=== PATIENT | male | born 1945 | race Hispanic/Latino ===

== ENCOUNTER 2017-02-22 20:21 | Inpatient (IN) | payer BC, MEDICARE ==
--- NOTE | 2017-02-22 20:41 | ED PDOC ---
Arrival/HPI - General Chief Complaint: Weakness/Neurological Deficit Time Seen by Provider: 02/22/17 20:23 - Critical Care Critical Care Minutes: 45 minutes - History of Present Illness Narrative History of Present Illness (Text): 71M hx of CHF and COPD c/o generalized weakness and sob since yesterday. also reports productive cough no fever. he lives at home w family and normally can walk but today he is too weak. 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 Thickened, whitish-yellowish skin patch) Hx Psoriasis: Yes Other/Comment: Generalized body surface area, including extremities and torso with reddened, flushed skin with dry, whitish-yellow, thick, scaly, flaky patches. - Musculoskeletal/Rheumatological Hx Falls: Yes (past) - Gastrointestinal Hx Gastrointestinal Disorders: Yes (reflux) - Genitourinary/Gynecological Hx Reproductive Disorders: No - Psychiatric Hx Psychophysiologic Disorder: Yes Hx Anxiety: Yes Hx Depression: Yes Hx Substance Use: No - Surgical History Hx Appendectomy: Yes Hx Cardiac Catheterization: Yes Hx Coronary Stent: Yes - Anesthesia Hx Anesthesia Reactions: No Hx Malignant Hyperthermia: No - Suicidal Assessment Feels Threatened In Home Enviroment: No Family/Social History Family/Social History: Other (nc) Smoking Status: Former Smoker Hx Alcohol Use: No Hx Substance Use: No Hx Substance Use Treatment: No Allergies/Home Meds Allergies/Adverse Reactions: Allergies No Known Allergies Allergy (Verified 02/22/17 20:33) Home Medications: Home Meds Medication Instructions Recorded Confirmed Furosemide [Lasix] 40 mg PO BID 07/14/15 02/22/17 Esomeprazole Magnesium [Nexium 40 mg PO DAILY 07/28/15 02/22/17 24Hr] Sitagliptin Phos/Metformin HCl 1 each PO BID 03/31/16 02/22/17 [Janumet 50-500 mg Tablet] Bosentan [Tracleer] 125 mg PO BID 09/26/16 02/22/17 Prednisone [Deltasone] 10 mg PO DAILY 09/26/16 02/22/17 Review of Systems - Physician Review All systems were reviewed & negative as marked: Yes - Review of Systems Eyes: Other (chronic blindess) Respiratory: SOB, Cough Cardiovascular: absent: Chest Pain Gastrointestinal: absent: Abdominal Pain, Vomiting Genitourinary Male: absent: Dysuria Skin: Rash (chronic) Physical Exam Vital Signs Temp Pulse Resp BP Pulse Ox 02/22/17 23:06 106 H 17 117/81 90 L 02/22/17 22:36 100 H 18 97/77 L 90 L 02/22/17 20:43 99.9 F H 110 H 28 H 137/78 95 Appearance: Positive for: Non-Toxic, Comfortable Pain Distress: None Mental Status: Positive for: Alert and Oriented X 3 - Systems Exam Head: Present: Atraumatic Conjunctiva: Present: Injected Mouth: Present: Moist Mucous Membranes Neck: Present: Normal Range of Motion Respiratory/Chest: Present: Rales (bibasilar). No: Respiratory Distress Cardiovascular: Present: Regular Rate and Rhythm Abdomen: No: Tenderness Genitourinary Male: No: Penile Swelling Upper Extremity: Present: NORMAL PULSES Lower Extremity: Present: Edema (trace), NORMAL PULSES Neurological: Present: GCS=15, Motor Func Grossly Intact, Normal Sensory Function Skin: Present: Warm, Dry, Rashes (chronic appearing diffuse) Psychiatric: Present: Alert, Oriented x 3 Medical Decision Making ED Course and Treatment: 02/22/17 21:26 Chest X-ray interpreted by me: Diffuse bilateral opacities. Right sided pleural effusion. 02/22/17 22:08 Case discussed with at emergency department who accepts patient to ICU for worsening COPD and CHF under hospitalist service. 02/22/17 22:55 EKG interpreted by me: Sinus Tachy @ 107 bpm. Non-specific ST/T wave abnormality. No STEMI. - Lab Interpretations Microbiology Results: Microbiology Results 02/22/17 21:50 Blood-Venous Blood Culture - Preliminary NO GROWTH AFTER 48 HOURS 02/22/17 20:50 Blood-Venous Blood Culture - Preliminary NO GROWTH AFTER 48 HOURS Lab Results: 02/22/17 20:45 02/22/17 20:45 Lab Results 02/22/17 21:00: pO2 196 H, VBG pH 7.52 H, VBG pCO2 59.0, VBG HCO3 48.2 H, VBG Total CO2 50.0 H, VBG O2 Sat (Calc) 99.6 H, VBG Base Excess 21.6 H, VBG Potassium 4.6, Sodium 139.0, Chloride 101.0, Glucose 127 H, Lactate 0.7, FiO2 21.0, Venous Blood Potassium 4.6 02/22/17 20:45: WBC 5.7 D, RBC 4.73, Hgb 11.5 L, Hct 42.5, MCV 89.9, MCH 24.3 L , MCHC 27.1 L, RDW 16.2 H, Plt Count 138, MPV 10.6, Gran % 73.1 H, Lymph % (Auto ) 11.0 L, [place] % (Auto) 10.3 H, Eos % (Auto) 5.4 H, Baso % (Auto) 0.2, Gran # 4.18, Lymph # 0.6 L, [place] # 0.6, Eos # 0.3, Baso # 0.01, Sodium 144, Chloride 90 L, Potassium 4.5, Carbon Dioxide 50 H, Anion Gap 9 L, BUN 15, Creatinine 0.9 , Est GFR ( Amer) > 60, Est GFR (Non-Af Amer) > 60, Random Glucose 127 H , Calcium 9.1, Total Bilirubin 0.6, AST 18, ALT 29, Alkaline Phosphatase 85, Troponin I < 0.01, NT-Pro-B Natriuret Pep 252, Total Protein 8.1, Albumin 3.9, Globulin 4.2, Albumin/Globulin Ratio 0.9 L, Procalcitonin < 0.05 L I have reviewed the lab results: Yes Interpretation: All labs normal - RAD Interpretation Radiology Orders: 02/22/17 20:34 CHEST PORTABLE [RAD] Stat Nurse Sane: ED Physician - EKG Interpretation Interpreted by ED Physician: Yes Type: 12 lead EKG - Medication Orders Current Medication Orders: Albuterol/Ipratropium (Duoneb 3 Mg/0.5 Mg (3 Ml) Ud) 3 ml IH Q2H PRN PRN Reason: Shortness of Breath Last Admin: 02/25/17 19:31 Dose: 3 ML Alprazolam (Xanax) 0.25 mg PO BID PRN; Protocol PRN Reason: Anxiety Stop: 03/02/17 18:01 Last Admin: 02/25/17 10:40 Dose: 0.25 MG Behavioural Document 02/25/17 10:40 FABIOLA (Rec: 02/25/17 10:41 FABIOLA [id number]) Maintenance Maintenance Dose No Nonmedicinal Nonmedicinal Interventions Redirect Behavior Behavior for Medication: Anxiety Re-Assess: Reassess Psych Meds Document 02/25/17 11:40 FABIOLA (Rec: 02/25/17 12:41 FABIOLA [id number]) Reassess Psych Med Effective Aspirin (Aspirin Chewable) 81 mg PO DAILY [facility] Last Admin: 02/25/17 10:40 Dose: 81 MG Benzonatate (Tessalon Perles) 100 mg PO TID PRN PRN Reason: Cough Last Admin: 02/25/17 17:09 Dose: 100 MG Budesonide (Pulmicort Respules) 0.5 mg IH [id number] [facility] Last Admin: 02/25/17 19:30 Dose: 0.5 MG Diltiazem HCl (Cardizem Cd) 300 mg PO DAILY [facility] Last Admin: 02/25/17 10:42 Dose: 300 MG MAR Pulse and Blood Pressure Document 02/25/17 10:42 FABIOLA (Rec: 02/25/17 10:43 FABIOLA [id number]) Pulse Pulse Rate (60-90) 55 Blood Pressure Blood Pressure (100/60-150/90) 145/67 Docusate Sodium (Colace) 100 mg PO DAILY [facility] Last Admin: 02/25/17 10:41 Dose: 100 MG Stool Assessment Document 02/25/17 10:41 FABIOLA (Rec: 02/25/17 10:41 FABIOLA [id number]) Pattern Bowel Pattern No Bowel Movement Fecal Management System Bowel Movement Frequency Daily Furosemide (Lasix) 40 mg IVP DAILY [facility] Heparin Sodium (Porcine) (Heparin) 5,000 units SC Q12 [place] PRN Reason: Protocol Last Admin: 02/25/17 10:44 Dose: 5,000 UNITS Subcutaneous Administrations Document 02/25/17 10:44 FABIOLA (Rec: 02/25/17 10:44 FABIOLA [id number]) Injection Site MAR Injection Site Left Deltoid Charges for Administration # of Subcutaneous Administrations 1 Azithromycin (Zithromax 500mg In Ns) 250 mls @ 167 mls/hr IVPB DAILY YSDNEY PRN Reason: Protocol Last Admin: 02/25/17 10:45 Dose: 167 MLS/HR eMAR Start Stop Document 02/25/17 10:45 FABIOLA (Rec: 02/25/17 10:46 FABIOLA [id number]) Intravenous Solution Start Date 02/25/17 Start Time 10:45 End Date 02/25/17 End time 12:15 Total Infusion Time 90 Insulin Human Lispro (Humalog Low) 0 units SC ACHS [facility] PRN Reason: Protocol Last Admin: 02/25/17 16:30 Dose: Not Given Non-Admin Reason: Blood Sugar Parameter MAR Blood Glucose Document 02/25/17 16:30 FABIOLA (Rec: 02/25/17 17:06 FABIOLA [id number]) Blood Glucose Finger Stick Blood Glucose (70-120) 118 Subcutaneous Administrations Document 02/25/17 16:30 FABIOLA (Rec: 02/25/17 17:06 FABIOLA [id number]) Charges for Administration # of Subcutaneous Administrations 0 Methylprednisolone (Solu-Medrol) 40 mg IVP BID [facility] Last Admin: 02/25/17 17:09 Dose: 40 MG IVP Administration Document 02/25/17 17:09 FABIOLA (Rec: 02/25/17 17:09 FABIOLA [id number]) Charges for Administration # of IVP Administrations 1 Non-Formulary Medication (Bosentan [Tracleer]) 125 mg PO BID [facility] Last Admin: 02/25/17 17:09 Dose: 125 MG Ondansetron HCl (Zofran Inj) 4 mg IVP Q6H PRN PRN Reason: Nausea/Vomiting Pantoprazole Sodium (Protonix Inj) 40 mg IVP DAILY [facility] Last Admin: 02/25/17 10:43 Dose: 40 MG IVP Administration Document 02/25/17 10:43 FABIOLA (Rec: 02/25/17 10:43 FABIOLA [id number]) Charges for Administration # of IVP Administrations 1 Polyethylene Glycol (Miralax) 17 gm PO BID PRN PRN Reason: Constipation Last Admin: 02/25/17 10:44 Dose: 17 GM Discontinued Medications Acetazolamide (Diamox 500 Mg Inj) 500 mg IV ONCE ONE Stop: 02/23/17 10:41 Last Admin: 02/23/17 11:41 Dose: 500 MG eMAR Start Stop Document 02/23/17 11:41 RITIKA (Rec: 02/23/17 11:[address]) Intravenous Solution Start Date 02/23/17 Start Time 11:41 End Date 02/23/17 End time 11:41 Total Infusion Time 0 Albuterol/Ipratropium (Duoneb 3 Mg/0.5 Mg (3 Ml) Ud) 3 ml IH ONCE STA Stop: 02/22/17 20:55 Last Admin: 02/22/17 21:18 Dose: 3 ML Albuterol/Ipratropium (Duoneb 3 Mg/0.5 Mg (3 Ml) Ud) 3 ml IH Q4H [place] Stop: 02/23/17 07:01 Last Admin: 02/23/17 08:08 Dose: 3 ML Furosemide (Lasix) 40 mg IVP Q12H [place] Furosemide (Lasix) 40 mg IVP DAILY [place] Last Admin: 02/23/17 09:11 Dose: 40 MG MAR Blood Pressure Document 02/23/17 09:11 RITIKA (Rec: 02/23/17 09:[address]) Blood Pressure Blood Pressure (100/60-150/90) 160/77 IVP Administration Document 02/23/17 09:11 RITIKA (Rec: 02/23/17 09:[address]) Charges for Administration # of IVP Administrations 1 Guaifenesin (Robitussin) 200 mg PO Q4H PRN PRN Reason: Cough and congestion Last Admin: 02/25/17 10:41 Dose: 200 MG Azithromycin (Zithromax 500mg In Ns) 250 mls @ 167 mls/hr IVPB STAT STA PRN Reason: Protocol Stop: 02/22/17 22:22 Last Admin: 02/22/17 22:26 Dose: 167 MLS/HR eMAR Start Stop Document 02/22/17 22:26 [email or web address] (Rec: 02/22/17 22:26 [id number] Intravenous Solution Start Date 02/22/17 Start Time 22:26 End Date 02/22/17 Piperacillin Sod/Tazobactam Sod (Zosyn 4.5 Gm In Ns 100ml) 100 mls @ 200 mls/ hr IVPB STAT STA PRN Reason: Protocol Stop: 02/22/17 21:22 Last Admin: 02/22/17 21:17 Dose: 200 MLS/HR eMAR Start Stop Document 02/22/17 21:17 [email or web address] (Rec: 02/22/17 21:[address]) Intravenous Solution Start Date 02/22/17 Start Time 21:17 End Date 02/22/17 Vancomycin HCl 1.2 gm/ Sodium (Chloride) 250 mls @ 167 mls/hr IVPB STAT STA Stop: 02/22/17 22:27 Last Admin: 02/22/17 23:30 Dose: 167 MLS/HR eMAR Start Stop Document 02/22/17 23:30 MPD (Rec: 02/23/17 00:52 MPD [facility] [place]14ICUP) Intravenous Solution Start Date 02/22/17 Start Time 23:30 End Date 02/23/17 End time 01:00 Total Infusion Time 90 Sodium Chloride (Sodium Chloride 0.9%) 500 mls @ 999 mls/hr IV .Q31M STA Stop: 02/22/17 22:28 Last Admin: 02/22/17 23:11 Dose: 999 MLS/HR eMAR Start Stop Document 02/22/17 23:11 [email or web address] (Rec: 02/22/17 23:12 [address] [facility] Intravenous Solution Start Date 02/22/17 Start Time 23:11 End Date 02/22/17 Sodium Chloride (Sodium Chloride 0.9%) 500 mls @ 999 mls/hr IV .Q31M STA Stop: 02/22/17 23:30 Last Admin: 02/23/17 00:56 Dose: Ceftriaxone Sodium (Rocephin 1 Gram Ivpb) 100 mls @ 100 mls/hr IVPB DAILY [place] PRN Reason: Protocol Cefepime HCl (Maxipime 1gm) 100 mls @ 100 mls/hr IVPB Q8 [place] PRN Reason: Protocol Last Admin: 02/24/17 06:00 Dose: 100 MLS/HR eMAR Start Stop Document 02/24/17 06:00 MPD (Rec: 02/24/17 06:17 MPD [id number]) Intravenous Solution Start Date 02/24/17 Start Time 06:00 End Date 02/24/17 End time 07:00 Total Infusion Time 60 Methylprednisolone (Solu-Medrol) 80 mg IVP STAT STA Stop: 02/22/17 20:55 Last Admin: 02/22/17 21:18 Dose: 80 MG IVP Administration Document 02/22/17 21:18 [email or web address] (Rec: 02/22/17 21:18 [email or web address] [id number]) Charges for Administration # of IVP Administrations 1 Methylprednisolone (Solu-Medrol) 40 mg IVP Q8H [facility] Last Admin: 02/24/17 16:06 Dose: 40 MG IVP Administration Document 02/24/17 16:06 RITIKA (Rec: 02/24/17 16:06 RITIKA [id number]) Charges for Administration # of IVP Administrations 1 Methylprednisolone (Solu-Medrol) 40 mg IVP 2200,0600,1400 [facility] Last Admin: 02/25/17 05:12 Dose: 40 MG IVP Administration Document 02/25/17 05:12 FDE (Rec: 02/25/17 05:12 FDE [id number]) Charges for Administration # of IVP Administrations 1 Non-Formulary Medication (Bosentan [Tracleer]) 125 mg PO BID [facility] Non-Formulary Medication (Bosentan [Tracleer]) 125 mg PO BID [facility] Disposition/Present on Arrival - Present on Arrival Any Indicators Present on Arrival: Yes History of DVT/PE: No History of Uncontrolled Diabetes: Yes Urinary Catheter: No History of Decub. Ulcer: No History Surgical Site Infection Following: None - Disposition Have Diagnosis and Disposition been Completed?: Yes Diagnosis: CHF (congestive heart failure), COPD (chronic obstructive pulmonary disease), Respiratory failure with hypercapnia, Pneumonia Disposition: HOSPITALIZED Disposition Time: 22:10 Condition: GUARDED
[2017-02-22 20:52] LABS: ADD MANUAL DIFF? NO
[2017-02-22] MEDS ORDERED: Azithromycin 500MG/NS 250ml 250 ML IVPB STA (20:53)
[2017-02-22] MEDS ORDERED: Piperacill/Tazo 4.5gm in NS 100 ML IVPB STA (20:53)
[2017-02-22] MEDS ORDERED: Vancomycin 500 mg Inj IVPB STA (20:53)
[2017-02-22] MEDS ORDERED: Albuterol-Ipratrop 3 mg / 0.5 (3 ml) UD IH STA (20:54)
[2017-02-22 20:55] LABS: BASO # 0.01 K/mm3 (0.0-2.0); BASO % 0.2 % (0.0-3.0); EOS # 0.3 (0.0-0.7); EOS % 5.4 % (1.5-5.0); GRAN # 4.18 (1.4-6.5); GRAN % 73.1 % (50.0-68.0); HEMATOCRIT 42.5 % (42.0-52.0); LYMPH # 0.6 (1.2-3.4); MEAN CELL VOLUME 89.9 fL (80.0-105.0); MEAN CORPUSCULAR HEMOGLOBIN 24.3 pg (25.0-35.0); MEAN CORPUSCULAR HGB CONC 27.1 g/dl (31.0-37.0); MEAN PLATELET VOLUME 10.6 fl (7.0-11.0); MONO # 0.6 (0.1-0.6); MONO % 10.3 % (1.0-6.0); PLATELET COUNT 138 10^3/uL (120.0-450.0); RED CELL DISTRIBUTION WIDTH 16.2 % (11.5-14.5); WHITE BLOOD COUNT 5.7 10^3/ul (4.5-11.0)
[2017-02-22] MEDS ORDERED: Vancomycin 1.2 GM in Sodium Chloride 0.9% 250 ML IVPB STA (20:58)
[2017-02-22 21:04] LABS: ALB/GLOB RATIO 0.9 (1.1-1.8); ALKALINE PHOSPHATASE 85 U/L (38-133); ALT/SGPT 29 U/L (7-56); AST/SGOT 18 U/L (15-59); BILIRUBIN,TOTAL 0.6 mg/dL (0.2-1.3); BLOOD UREA NITROGEN 15 mg/dL (7-21); CALCIUM 9.1 mg/dL (8.4-10.5); CHLORIDE 90 mmol/L (98-107); GFR AFRICAN-AMERICAN > 60; GLUCOSE,RANDOM 127 mg/dL (70-110); POTASSIUM 4.5 mmol/L (3.6-5.0); SODIUM 144 mmol/L (132-148); TOTAL PROTEIN 8.1 g/dL (5.8-8.3)
[2017-02-22 21:11] LABS: VENOUS BLOOD GAS BASE EXCESS 21.6 mmol/L (0.0-2.0); VENOUS BLOOD PH 7.52 (7.32-7.43)
[2017-02-22 21:12] LABS: CARBON DIOXIDE 50 mmol/L (21-33)
[2017-02-22 21:16] LABS: TROPONIN I < 0.01 ng/mL
[2017-02-22] MEDS ORDERED: Sodium Chloride 0.9% 500 ML IV STA ×2 (21:58→23:00)
[2017-02-22 22:49] LABS: ARTERIAL BLOOD GAS O2 CAPACITY 13.6 mL/dl (16-24); ARTERIAL BLOOD GAS O2 CONTENT 12.2 ML/dl (15-23); ARTERIAL BLOOD GAS PH 7.29 (7.35-7.45); CARBOXYHEMOGLOBIN 3.2 % (0.5-1.5); HHB 9.7 % (0-5); METHEMOGLOBIN 1.2 % (0.0-3.0)
[2017-02-22 22:52] LABS: ARTERIAL BLOOD GAS HCO3 48.6 mmol/L (21-28)
[2017-02-22 22:57] LABS: URINE BILIRUBIN NEGATIVE (NEGATIVE); URINE BLOOD SMALL (NEGATIVE); URINE GLUCOSE (UA) NEGATIVE (NEGATIVE); URINE KETONE NEGATIVE (NEGATIVE); URINE LEUKOCYTE ESTERASE NEGATIVE Leu/uL (NEGATIVE); URINE PROTEIN NEGATIVE mg/dL (<30 mg/dL); URINE UROBILINOGEN 0.2 E.U./dL (<1 E.U./dL)
[2017-02-22 22:58] LABS: URINE APPEARANCE CLEAR (CLEAR); URINE COLOR STRAW (YELLOW)
[2017-02-22 23:04] LABS: URINE BACTERIA TRACE (NEG); URINE EPITHELIAL CELLS 0 - 2 /hpf (0-5); URINE RBC 0 - 2 /hpf (0-2); URINE WBC 0 - 2 /hpf (0-6)
--- NOTE | 2017-02-22 23:08 | CP.PCM.HP ---
History of Present Illness - History of Present Illness History of Present Illness: The patient is a 71 year old, legally blind, man with a history of severe COPD ( on 4L of O2 at home), pulmonary hypertension, obstructive sleep apnea, psoriasis , HTN, NDDM and CAD (s/p stents), who presents with 2 days of worsening SOB, NIETO , wheezing and generalized malaise. He also reports a productive cough during this time period. He denies orthopnea, PND, F/C, hemoptysis, or N/V. Of note, the history was limited because the patient was in respiratory distress, on Bipap, during the interview. He reports compliance with all home medications ( including Lasix). In the ED, he was having acute hypercapeic respiratory distress (MWN9=858 and pH=7.29) and therefore, was started on Bipap therapy. His CXR is concerning for bilateral opacities and a possible right-sided pleural effusion. Also in the ED, his initial SBP's were in the low-normal range (90-105). As a result, he will be admitted to the ICU overnight for close monitoring and management of his acute symptoms. Present on Admission - Present on Admission Any Indicators Present on Admission: No History of DVT/PE: No History of Uncontrolled Diabetes: No Urinary Catheter: No Decubitus Ulcer Present: No Review of Systems - Review of Systems All systems: reviewed and no additional remarkable complaints except - Constitutional Constitutional: As Per HPI - EENT Eyes: As Per HPI Nose/Mouth/Throat: As Per HPI - Cardiovascular Cardiovascular: As Per HPI - Respiratory Respiratory: As Per HPI - Gastrointestinal Gastrointestinal: As Per HPI - Musculoskeletal Musculoskeletal: As Per HPI - Neurological Neurological: As Per HPI Past Patient History - Infectious Disease Hx of Infectious Diseases: None - Tetanus Immunizations Tetanus Immunization: Up to Date - Past Social History Smoking Status: Former Smoker - CARDIAC Hx Cardiac Disorders: Yes Hx Congestive Heart Failure: Yes Hx Hypertension: Yes - PULMONARY Hx Chronic Obstructive Pulmonary Disease (COPD): Yes (end stage) - NEUROLOGICAL Hx Neurological Disorder: Yes (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 Thickened, whitish-yellowish skin patch) Hx Psoriasis: Yes Other/Comment: Generalized body surface area, including extremities and torso with reddened, flushed skin with dry, whitish-yellow, thick, scaly, flaky patches. - MUSCULOSKELETAL/RHEUMATOLOGICAL Hx Falls: Yes (past) - GASTROINTESTINAL Hx Gastrointestinal Disorders: Yes (reflux) - GENITOURINARY/GYNECOLOGICAL Hx Reproductive Disorders: No - PSYCHIATRIC Hx Psychophysiologic Disorder: Yes Hx Anxiety: Yes Hx Depression: Yes Hx Substance Use: No - SURGICAL HISTORY Hx Appendectomy: Yes Hx Cardiac Catheterization: Yes Hx Coronary Stent: Yes - ANESTHESIA Hx Anesthesia Reactions: No Hx Malignant Hyperthermia: No Meds Allergies/Adverse Reactions: Allergies Allergy/AdvReac Type Severity Reaction Status Date / Time No Known Allergies Allergy Verified 02/22/17 20:33 Physical Exam - Constitutional Additional comments: In obvious discomfort due to respiratory distress - Head Exam Head Exam: ATRAUMATIC, NORMAL INSPECTION, NORMOCEPHALIC - Eye Exam Eye Exam: EOMI, Normal appearance, PERRL - ENT Exam ENT Exam: Mucous Membranes Moist, Normal Exam - Neck Exam Neck exam: Positive for: Normal Inspection - Respiratory Exam Additional comments: Diffuse expiratory wheezing in both upper lung soto; Decreased bibasilar breath sounds (R>L). No accessory muscle use. - Cardiovascular Exam Cardiovascular Exam: Tachycardia, REGULAR RHYTHM, RRR - GI/Abdominal Exam GI & Abdominal Exam: Normal Bowel Sounds, Soft. absent: Tenderness - Rectal Exam Rectal Exam: Deferred - Extremities Exam Additional comments: trace to 1+ bilateral lower extremities pitting edema; Scattered chronic psoriatic skin lesions on both legs - Neurological Exam Additional comments: Grossly normal neuro exam - Skin Additional comments: Scattered chronic psoriatic skin lesions over entire body (especially on legs) Results - Vital Signs Recent Vital Signs: Last Vital Signs Temp 99.9 F H 02/22/17 20:43 Pulse 100 H 02/22/17 22:36 Resp 18 02/22/17 22:36 BP 97/77 L 02/22/17 22:36 Pulse Ox 90 L 02/22/17 22:36 - Labs Result Diagrams: 02/22/17 20:45 02/22/17 20:45 Labs: Laboratory Results - last 24 hr 02/22/17 22:40 pCO2 101 H* pO2 51.0 L HCO3 48.6 H* ABG pH 7.29 L ABG Total CO2 51.7 H ABG O2 Saturation 89.9 L ABG O2 Content 12.2 L ABG Base Excess 18.3 H ABG Hemoglobin 10.1 L ABG Carboxyhemoglobin 3.2 H POC ABG HHb (Measured) 9.7 H ABG Methemoglobin 1.2 ABG O2 Capacity 13.6 L Hgb O2 Saturation 86.0 L FiO2 40.0 Urine Color Straw Urine Appearance Clear Urine pH 7.0 Ur Specific [place] 1.015 Urine Protein Negative Urine Glucose (UA) Negative Urine Ketones Negative Urine Blood Small H Urine Nitrate Negative Urine Bilirubin Negative Urine Urobilinogen 0.2 Ur Leukocyte Esterase Negative - Imaging and Cardiology Chest x-ray Status: Image reviewed by me Assessment & Plan - Assessment and Plan (Free Text) Plan: A/P: The patient is a 71 year old, legally blind, man with a history of severe COPD (on 4L of O2 at home), pulmonary HTN, SARBJIT, psoriasis, HTN, NDDM and CAD (s/ p stents), who is being admitted to the ICU for acute hypercapneic respiratory distress due to acute COPD exacerbation and bilateral PNA. 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 Pulmonary: -acute on chronic hypercapneic respiratory acidoses due to acute on chronic COPD and bilateral PNA (+/- right-sided pleural effusion) -Duo-nebs Q4hrs ATC and Q2hrs PRN -Bipap to help blow off excess CO2 -monitor serial ABG's -IV Solumedrol 40mg Q8hrs -pulmonary consult placed -empiric IV Cefepime and Azithromycin for b/l lung opacities -f/u blood and urine cultures -PRN Robitussan -continue home med of Bosentan 125mg po BID for pulmonary HTN Cardiac: -history of CAD (with PCI's) and HTN -BNP is normal with clinical evidence of mild fluid overload -will start IV Lasix 40mg daily -monitor strict I/O's and daily weights and keep HOB>30 degrees -ASA 81mg po daily -continue home medication of Diltiazem 300mg po daily for HTN -heart healthy diet Infectious Disease: -empiric IV Cefepime and Azithromycin for new bilateral pneumonia -check lactic acid and procalitonin level -normal white count with low-grade fevers (Tmax:99.9) Endocrine: -history of NDDM -hold all home oral hypoglycemic meds -low-dose Humalog Insulin sliding scale with Accu-checks AC&HS -consistent carbohydrate diet Skin: -chronic psoriatic lesions over extremities noted DVT PPx: SQ Herparin and SCD's GI PPx: IV Protonix
[2017-02-23] MEDS: MethylPREDNISolone 40 mg Vial IVP SCH ×4 (00:49→22:54)
[2017-02-23] MEDS: Albuterol-Ipratrop 3 mg / 0.5 (3 ml) UD IH SCH ×3 (00:50→08:08)
[2017-02-23 02:34] VITALS: BMI 196.4
[2017-02-23 05:32] LABS: ADD MANUAL DIFF? NO
[2017-02-23 05:37] LABS: BASO # 0.01 K/mm3 (0.0-2.0); BASO % 0.2 % (0.0-3.0); EOS % 0.2 % (1.5-5.0); GRAN # 4.13 (1.4-6.5); GRAN % 87.3 % (50.0-68.0); HEMATOCRIT 37.5 % (42.0-52.0); LYMPH # 0.4 (1.2-3.4); LYMPH % 7.6 % (22.0-35.0); MEAN CORPUSCULAR HEMOGLOBIN 24.2 pg (25.0-35.0); MEAN CORPUSCULAR HGB CONC 27.5 g/dl (31.0-37.0); MEAN PLATELET VOLUME 10.1 fl (7.0-11.0); MONO # 0.2 (0.1-0.6); MONO % 4.7 % (1.0-6.0); PLATELET COUNT 128 10^3/uL (120.0-450.0); RED CELL DISTRIBUTION WIDTH 16.3 % (11.5-14.5); WHITE BLOOD COUNT 4.7 10^3/ul (4.5-11.0)
[2017-02-23 05:49] LABS: ALB/GLOB RATIO 0.9 (1.1-1.8); ALKALINE PHOSPHATASE 70 U/L (38-133); ALT/SGPT 31 U/L (7-56); AST/SGOT 14 U/L (15-59); BILIRUBIN,TOTAL 0.4 mg/dL (0.2-1.3); BLOOD UREA NITROGEN 16 mg/dL (7-21); CALCIUM 8.3 mg/dL (8.4-10.5); CHLORIDE 94 mmol/L (98-107); GFR AFRICAN-AMERICAN > 60; GLUCOSE,RANDOM 144 mg/dL (70-110); PHOSPHOROUS 3.3 mg/dL (2.5-4.5); POTASSIUM 4.4 mmol/L (3.6-5.0); SODIUM 142 mmol/L (132-148); TOTAL PROTEIN 6.8 g/dL (5.8-8.3)
[2017-02-23 06:01] LABS: ARTERIAL BLOOD GAS O2 CAPACITY 14.1 mL/dl (16-24); ARTERIAL BLOOD GAS O2 CONTENT 13.4 ML/dl (15-23); ARTERIAL BLOOD GAS PH 7.33 (7.35-7.45); ARTERIAL BLOOD HGB O2 SAT 91.5 % (95.0-98.0); CARBOXYHEMOGLOBIN 2.9 % (0.5-1.5); HHB 4.5 % (0-5); METHEMOGLOBIN 1.2 % (0.0-3.0)
[2017-02-23 06:08] LABS: CARBON DIOXIDE 45 mmol/L (21-33)
[2017-02-23] MEDS: Cefepime 1gm in NS 100ml 100 ML IVPB SCH ×3 (06:36→21:30)
[2017-02-23 07:07] LABS: ARTERIAL BLOOD GAS HCO3 48.5 mmol/L (21-28)
--- NOTE | 2017-02-23 07:21 | CP.CCUPN ---
<Beth Rueda - Last Filed: 02/23/17 14:55> CCU Subjective - Physician Review Subjective (Free Text): 02/23/17 14:11 tried off Bipap 7am. cannot maintained O2 sat. Back on Trial off bipap again 11Am. desat to 80s during echocardiogram Bipap back on 2:15pm CCU Objective - Vital Signs / Intake & Output Vital Signs (Last 4 hours): Vital Signs Temp Pulse Resp BP Pulse Ox 02/23/17 06:00 75 16 135/78 94 L 02/23/17 05:10 73 22 94 L 02/23/17 05:00 65 18 133/95 H 92 L 02/23/17 04:25 76 95 02/23/17 04:07 80 02/23/17 04:00 98.3 F 83 19 116/71 93 L 02/23/17 03:33 75 32 H 02/23/17 03:32 73 35 H 02/23/17 03:31 74 35 H 02/23/17 03:30 88 34 H Intake and Output (Last 8hrs): Intake & Output 02/22/17 02/23/17 02/23/17 22:59 06:59 14:59 Intake Total 420 Balance 420 Weight 191 lb 9 oz Intake: Oral 120 Other 300 Other: Voiding Method Incontinent # Bowel Movements 0 - Physical Exam Head: Positive for: Atraumatic Conjunctiva: Positive for: Injected Mouth: Positive for: Moist Mucous Membranes Neck: Positive for: Normal Range of Motion, MIDLINE TENDERNESS Respiratory/Chest: Positive for: Wheezes (end expiratory), Rales (bibasilar). Negative for: Respiratory Distress Cardiovascular: Positive for: Regular Rate and Rhythm, Murmurs (systolic), Normal S1, S2 Abdomen: Positive for: Normal Bowel Sounds. Negative for: Tenderness, Distention, Peritoneal Signs, Rebound Genitourinary Male: Negative for: Penile Swelling Upper Extremity: Positive for: NORMAL PULSES Lower Extremity: Positive for: Edema (trace), NORMAL PULSES Neurological: Positive for: GCS=15, Motor Func Grossly Intact, Normal Sensory Function Skin: Positive for: Warm, Dry, Rashes (chronic appearing diffuse) Psychiatric: Positive for: Alert, Oriented x 3 - Medications Active Medications: Active Medications Generic Name Dose Route Start Last Admin Trade Name Freq PRN Reason Stop Dose Admin Albuterol/Ipratropium 3 ml 02/22/17 22:54 Duoneb 3 Mg/0.5 Mg (3 Ml) Ud IH Q2H PRN Shortness of Breath Aspirin 81 mg 02/23/17 10:00 Aspirin Chewable PO DAILY [facility] Diltiazem HCl 300 mg 02/23/17 10:00 Cardizem Cd PO DAILY [facility] Furosemide 40 mg 02/23/17 10:00 Lasix IVP DAILY [facility] Guaifenesin 200 mg 02/22/17 23:00 Robitussin PO Q4H PRN Cough and congestion Heparin Sodium (Porcine) 5,000 units 02/23/17 10:00 Heparin SC Q12 [facility] Protocol Azithromycin 250 mls @ 167 mls/hr 02/23/17 10:00 Zithromax 500mg In Ns IVPB DAILY [facility] Protocol Cefepime HCl 100 mls @ 100 mls/hr 02/23/17 06:00 02/23/17 06:36 Maxipime 1gm IVPB 100 mls/hr Q8 [facility] Administration Protocol Insulin Human Lispro 0 units 02/23/17 07:30 Humalog Low SC ACHS [facility] Protocol Methylprednisolone 40 mg 02/22/17 23:00 02/23/17 06:37 Solu-Medrol IVP 40 mg Q8H [facility] Administration Ondansetron HCl 4 mg 02/22/17 22:49 Zofran Inj IVP Q6H PRN Nausea/Vomiting Pantoprazole Sodium 40 mg 02/23/17 10:00 Protonix Inj IVP DAILY [facility] - Patient Studies Lab Studies: Lab Studies 02/23/17 02/23/17 02/23/17 Range/Units 05:30 05:00 01:50 WBC 4.7 (4.5-11.0) 10^3/ul RBC 4.26 (3.5-6.1) 10^6/uL Hgb 10.3 L (14.0-18.0) gm/dL Hct 37.5 L (42.0-52.0) % MCV 88.0 (80.0-105.0) fL MCH 24.2 L (25.0-35.0) pg MCHC 27.5 L (31.0-37.0) g/dl RDW 16.3 H (11.5-14.5) % Plt Count 128 (120.0-450.0) 10^3/uL MPV 10.1 (7.0-11.0) fl Gran % 87.3 H (50.0-68.0) % Lymph % (Auto) 7.6 L (22.0-35.0) % Toole % (Auto) 4.7 (1.0-6.0) % Eos % (Auto) 0.2 L (1.5-5.0) % Baso % (Auto) 0.2 (0.0-3.0) % Gran # 4.13 (1.4-6.5) Lymph # 0.4 L (1.2-3.4) Toole # 0.2 (0.1-0.6) Eos # 0.0 (0.0-0.7) Baso # 0.01 (0.0-2.0) K/mm3 pCO2 92 H* (35-45) mm/Hg pO2 66.0 L (80-100) mm/Hg HCO3 48.5 H* (21-28) mmol/L ABG pH 7.33 L (7.35-7.45) ABG Total CO2 51.3 H (22-28) mmol.L ABG O2 Saturation 95.3 (95-98) % ABG O2 Content 13.4 L (15-23) ML/dl ABG Base Excess 18.9 H (-2.0-3.0) mmol/L ABG Hemoglobin 10.4 L (11.7-17.4) g/dL ABG Carboxyhemoglobin 2.9 H (0.5-1.5) % POC ABG HHb (Measured) 4.5 (0-5) % ABG Methemoglobin 1.2 (0.0-3.0) % ABG O2 Capacity 14.1 L (16-24) mL/dl Hgb O2 Saturation 91.5 L (95.0-98.0) % FiO2 40.0 % Sodium 142 (132-148) mmol/L Potassium 4.4 (3.6-5.0) mmol/L Chloride 94 L (98-107) mmol/L Carbon Dioxide 45 H (21-33) mmol/L Anion Gap 7 L (10-20) BUN 16 (7-21) mg/dL Creatinine 0.9 (0.5-1.4) mg/dL Est GFR ( Amer) > 60 Est GFR (Non-Af Amer) > 60 Random Glucose 144 H (70-110) mg/dL Lactic Acid 1.0 (0.7-2.1) mmol/L Calcium 8.3 L (8.4-10.5) mg/dL Phosphorus 3.3 (2.5-4.5) mg/dL Magnesium 2.0 (1.7-2.2) mg/dL Total Bilirubin 0.4 (0.2-1.3) mg/dL AST 14 L (15-59) U/L ALT 31 (7-56) U/L Alkaline Phosphatase 70 (38-133) U/L Total Protein 6.8 (5.8-8.3) g/dL Albumin 3.2 (3.0-4.8) g/dL Globulin 3.5 gm/dL Albumin/Globulin Ratio 0.9 L (1.1-1.8) Urine Color (YELLOW) Urine Appearance (CLEAR) Urine pH (4.7-8.0) Ur Specific Avis (1.005-1.035) Urine Protein (<30 mg/dL) mg/dL Urine Glucose (UA) (NEGATIVE) mg/dL Urine Ketones (NEGATIVE) mg/dL Urine Blood (NEGATIVE) Urine Nitrate (NEGATIVE) Urine Bilirubin (NEGATIVE) Urine Urobilinogen (<1 E.U./dL) E.U./dL Ur Leukocyte Esterase (NEGATIVE) Kristina/uL Urine RBC (0-2) /hpf Urine WBC (0-6) /hpf Ur Epithelial Cells (0-5) /hpf Urine Bacteria (NEG) Influenza Typ A,B (EIA) (NEGATIVE) 02/22/17 Range/Units 22:40 WBC (4.5-11.0) 10^3/ul RBC (3.5-6.1) 10^6/uL Hgb (14.0-18.0) gm/dL Hct (42.0-52.0) % MCV (80.0-105.0) fL MCH (25.0-35.0) pg MCHC (31.0-37.0) g/dl RDW (11.5-14.5) % Plt Count (120.0-450.0) 10^3/uL MPV (7.0-11.0) fl Gran % (50.0-68.0) % Lymph % (Auto) (22.0-35.0) % Toole % (Auto) (1.0-6.0) % Eos % (Auto) (1.5-5.0) % Baso % (Auto) (0.0-3.0) % Gran # (1.4-6.5) Lymph # (1.2-3.4) Toole # (0.1-0.6) Eos # (0.0-0.7) Baso # (0.0-2.0) K/mm3 pCO2 101 H* (35-45) mm/Hg pO2 51.0 L (80-100) mm/Hg HCO3 48.6 H* (21-28) mmol/L ABG pH 7.29 L (7.35-7.45) ABG Total CO2 51.7 H (22-28) mmol.L ABG O2 Saturation 89.9 L (95-98) % ABG O2 Content 12.2 L (15-23) ML/dl ABG Base Excess 18.3 H (-2.0-3.0) mmol/L ABG Hemoglobin 10.1 L (11.7-17.4) g/dL ABG Carboxyhemoglobin 3.2 H (0.5-1.5) % POC ABG HHb (Measured) 9.7 H (0-5) % ABG Methemoglobin 1.2 (0.0-3.0) % ABG O2 Capacity 13.6 L (16-24) mL/dl Hgb O2 Saturation 86.0 L (95.0-98.0) % FiO2 40.0 % Sodium (132-148) mmol/L Potassium (3.6-5.0) mmol/L Chloride (98-107) mmol/L Carbon Dioxide (21-33) mmol/L Anion Gap (10-20) BUN (7-21) mg/dL Creatinine (0.5-1.4) mg/dL Est GFR ( Amer) Est GFR (Non-Af Amer) Random Glucose (70-110) mg/dL Lactic Acid (0.7-2.1) mmol/L Calcium (8.4-10.5) mg/dL Phosphorus (2.5-4.5) mg/dL Magnesium (1.7-2.2) mg/dL Total Bilirubin (0.2-1.3) mg/dL AST (15-59) U/L ALT (7-56) U/L Alkaline Phosphatase (38-133) U/L Total Protein (5.8-8.3) g/dL Albumin (3.0-4.8) g/dL Globulin gm/dL Albumin/Globulin Ratio (1.1-1.8) Urine Color Straw (YELLOW) Urine Appearance Clear (CLEAR) Urine pH 7.0 (4.7-8.0) Ur Specific Avis 1.015 (1.005-1.035) Urine Protein Negative (<30 mg/dL) mg/dL Urine Glucose (UA) Negative (NEGATIVE) mg/dL Urine Ketones Negative (NEGATIVE) mg/dL Urine Blood Small H (NEGATIVE) Urine Nitrate Negative (NEGATIVE) Urine Bilirubin Negative (NEGATIVE) Urine Urobilinogen 0.2 (<1 E.U./dL) E.U./dL Ur Leukocyte Esterase Negative (NEGATIVE) Kristina/uL Urine RBC 0 - 2 (0-2) /hpf Urine WBC 0 - 2 (0-6) /hpf Ur Epithelial Cells 0 - 2 (0-5) /hpf Urine Bacteria Trace (NEG) Influenza Typ A,B (EIA) Negative for flu a/b (NEGATIVE) Laboratory Results - last 24 hr 02/22/17 02/23/17 02/23/17 22:40 01:50 05:00 WBC 4.7 RBC 4.26 Hgb 10.3 L Hct 37.5 L MCV 88.0 MCH 24.2 L MCHC 27.5 L RDW 16.3 H Plt Count 128 MPV 10.1 Gran % 87.3 H Lymph % (Auto) 7.6 L Toole % (Auto) 4.7 Eos % (Auto) 0.2 L Baso % (Auto) 0.2 Gran # 4.13 Lymph # 0.4 L Toole # 0.2 Eos # 0.0 Baso # 0.01 pCO2 101 H* pO2 51.0 L HCO3 48.6 H* ABG pH 7.29 L ABG Total CO2 51.7 H ABG O2 Saturation 89.9 L ABG O2 Content 12.2 L ABG Base Excess 18.3 H ABG Hemoglobin 10.1 L ABG Carboxyhemoglobin 3.2 H POC ABG HHb (Measured) 9.7 H ABG Methemoglobin 1.2 ABG O2 Capacity 13.6 L Hgb O2 Saturation 86.0 L FiO2 40.0 Sodium 142 Potassium 4.4 Chloride 94 L Carbon Dioxide 45 H Anion Gap 7 L BUN 16 Creatinine 0.9 Est GFR ( Amer) > 60 Est GFR (Non-Af Amer) > 60 Random Glucose 144 H Lactic Acid 1.0 Calcium 8.3 L Phosphorus 3.3 Magnesium 2.0 Total Bilirubin 0.4 AST 14 L ALT 31 Alkaline Phosphatase 70 Total Protein 6.8 Albumin 3.2 Globulin 3.5 Albumin/Globulin Ratio 0.9 L Urine Color Straw Urine Appearance Clear Urine pH 7.0 Ur Specific Avis 1.015 Urine Protein Negative Urine Glucose (UA) Negative Urine Ketones Negative Urine Blood Small H Urine Nitrate Negative Urine Bilirubin Negative Urine Urobilinogen 0.2 Ur Leukocyte Esterase Negative Urine RBC 0 - 2 Urine WBC 0 - 2 Ur Epithelial Cells 0 - 2 Urine Bacteria Trace Influenza Typ A,B (EIA) Negative for flu a/b 02/23/17 05:30 WBC RBC Hgb Hct MCV MCH MCHC RDW Plt Count MPV Gran % Lymph % (Auto) Toole % (Auto) Eos % (Auto) Baso % (Auto) Gran # Lymph # Toole # Eos # Baso # pCO2 92 H* pO2 66.0 L HCO3 48.5 H* ABG pH 7.33 L ABG Total CO2 51.3 H ABG O2 Saturation 95.3 ABG O2 Content 13.4 L ABG Base Excess 18.9 H ABG Hemoglobin 10.4 L ABG Carboxyhemoglobin 2.9 H POC ABG HHb (Measured) 4.5 ABG Methemoglobin 1.2 ABG O2 Capacity 14.1 L Hgb O2 Saturation 91.5 L FiO2 40.0 Sodium Potassium Chloride Carbon Dioxide Anion Gap BUN Creatinine Est GFR ( Amer) Est GFR (Non-Af Amer) Random Glucose Lactic Acid Calcium Phosphorus Magnesium Total Bilirubin AST ALT Alkaline Phosphatase Total Protein Albumin Globulin Albumin/Globulin Ratio Urine Color Urine Appearance Urine pH Ur Specific Avis Urine Protein Urine Glucose (UA) Urine Ketones Urine Blood Urine Nitrate Urine Bilirubin Urine Urobilinogen Ur Leukocyte Esterase Urine RBC Urine WBC Ur Epithelial Cells Urine Bacteria Influenza Typ A,B (EIA) Critical Care Progress Note - Nutrition Nutrition: Nutrition Category Date Time Status Heart Healthy Diet [DIET] Diets 02/23/17 Breakfast Ordered Assessment/Plan - Assessment and Plan (Free Text) Plan: 71 M, blind since 1 y/o, 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 On ED arrival, he was in acute hypercapic respiratory distress (PCO2 101, pH 7.29) due to b/l CAP-PNA and COPD exacerbation, acute on chronic. He was put on bipap. CXR shows b/l opacities poss R pleural effusion. Initial BP at 90-105. Resp alkalosis improves. Neuro - blind since childbirth, AAOx3 - decreased hearing from URI Pulm - acute on chronic hypercapneic respiratory acidoses due to acute on chronic COPD and bilateral PNA (+/- right-sided pleural effusion) - acute hypoxic respiratory failure - from hypoxic vasoconstriction and Bohr effect - Want to proximate his baseline HCO3. Given acetazolamide x 1. (MOA: block the conversion of CO2 into bicarbonate, so PCO2 is higher, to induce metabolic acidosis to increase respiratory drive) - 5pm ABG Pending - Duo-nebs Q4hrs and Q2hrs PRN - Bipap 12//16/30% - IV Solumedrol 40mg Q8hrs - empiric IV Cefepime and Azithromycin for b/l lung opacities - PRN Robitussan - continue home med of Bosentan 125mg po BID for pulmonary HTN - f/u blood and urine cultures --- [ ] Echocardiogram done pending official read Cardiac: - history of CAD (with PCI's) and HTN - BNP is normal with clinical evidence of mild fluid overload - IV Lasix 40mg daily - OH HOLD- (No lasix to avoid volume contraction metabolic alkalosis) - strict I/O's (wet diapers) and daily weights and keep HOB>30 degrees - ASA 81mg po daily - continue home medication of Diltiazem 300mg po daily for HTN - heart healthy diet Infectious Disease: - (Tmax 99.9 02/22 8pm), WBC 5.7 --> 4.7, VBG lactate 0.7 - empiric IV Cefepime (day 2) and Azithromycin (day 2) for new bilateral pneumonia - In ED, got 1 dose vanco and , rocephin, and zosyn - Pending Panculture, procalitonin level - normal white count with low-grade fevers (Tmax:99.9) Nephrol - Incontinence urine, uses urinal GI - Carb consist - Zofran PRN Endocrine: - NIDDM - hold all home oral hypoglycemic meds - ISSS - low; Accu-checks AC&HS Skin - Chronic Psoriasis, extremities and torso - reddened, flushed skin with dry, whitish-yellow, thick, scaly, flaky patches. Prophalxis: - SQ Herparin and SCD's, IV Protonix Consult: - pulmonary = Dr. Edmond - Cardiology = Dr. Caldera - Palliative consult Prognosis - poor in both long and short-term S/R/D/w Dr. Janelle Fairchild - Date & Time Date: 02/23/17 Time: 07:20 <Gurinder PAIZ,Frances H - Last Filed: 02/23/17 17:30> CCU Objective - Vital Signs / Intake & Output Vital Signs (Last 4 hours): Vital Signs Temp Pulse Resp BP 02/23/17 16:00 99.8 F H 69 18 129/104 H Intake and Output (Last 8hrs): Intake & Output 02/23/17 02/23/17 02/23/17 06:59 14:59 22:59 Intake Total 420 420 Output Total 780 Balance 420 -360 Weight 191 lb 9 oz Intake: Oral 120 120 Other 300 300 Output: Urine 780 Urine, Voided 780 Other: Voiding Method Incontinent Urinal # Bowel Movements 0 0 - Medications Active Medications: Active Medications Generic Name Dose Route Start Last Admin Trade Name Freq PRN Reason Stop Dose Admin Albuterol/Ipratropium 3 ml 02/22/17 22:54 02/23/17 11:03 Duoneb 3 Mg/0.5 Mg (3 Ml) Ud IH 3 ml Q2H PRN Administration Shortness of Breath Aspirin 81 mg 02/23/17 10:00 02/23/17 09:10 Aspirin Chewable PO 81 mg DAILY [facility] Administration Budesonide 0.5 mg 02/23/17 20:00 Pulmicort Respules IH [id number] [facility] Diltiazem HCl 300 mg 02/23/17 10:00 02/23/17 09:10 Cardizem Cd PO 300 mg DAILY [facility] Administration Docusate Sodium 100 mg 02/23/17 13:30 Colace PO DAILY [facility] Furosemide 40 mg 02/24/17 10:00 Lasix IVP DAILY [facility] Guaifenesin 200 mg 02/22/17 23:00 Robitussin PO Q4H PRN Cough and congestion Heparin Sodium (Porcine) 5,000 units 02/23/17 10:00 02/23/17 09:12 Heparin SC 5,000 units Q12 [facility] Administration Protocol Azithromycin 250 mls @ 167 mls/hr 02/23/17 10:00 02/23/17 09:11 Zithromax 500mg In Ns IVPB 167 mls/hr DAILY [facility] Administration Protocol Cefepime HCl 100 mls @ 100 mls/hr 02/23/17 06:00 02/23/17 15:48 Maxipime 1gm IVPB 100 mls/hr Q8 [facility] Administration Protocol Insulin Human Lispro 0 units 02/23/17 07:30 02/23/17 16:12 Humalog Low SC Not Given ACHS [facility] Protocol Methylprednisolone 40 mg 02/22/17 23:00 02/23/17 15:47 Solu-Medrol IVP 40 mg Q8H [facility] Administration Non-Formulary Medication 125 mg 02/23/17 18:00 Bosentan [Tracleer] PO BID [facility] Ondansetron HCl 4 mg 02/22/17 22:49 Zofran Inj IVP Q6H PRN Nausea/Vomiting Pantoprazole Sodium 40 mg 02/23/17 10:00 02/23/17 09:11 Protonix Inj IVP 40 mg DAILY [facility] Administration - Patient Studies Lab Studies: Lab Studies 02/23/17 02/23/17 02/23/17 Range/Units 16:06 05:30 05:00 WBC 4.7 (4.5-11.0) 10^3/ul RBC 4.26 (3.5-6.1) 10^6/uL Hgb 10.3 L (14.0-18.0) gm/dL Hct 37.5 L (42.0-52.0) % MCV 88.0 (80.0-105.0) fL MCH 24.2 L (25.0-35.0) pg MCHC 27.5 L (31.0-37.0) g/dl RDW 16.3 H (11.5-14.5) % Plt Count 128 (120.0-450.0) 10^3/uL MPV 10.1 (7.0-11.0) fl Gran % 87.3 H (50.0-68.0) % Lymph % (Auto) 7.6 L (22.0-35.0) % Toole % (Auto) 4.7 (1.0-6.0) % Eos % (Auto) 0.2 L (1.5-5.0) % Baso % (Auto) 0.2 (0.0-3.0) % Gran # 4.13 (1.4-6.5) Lymph # 0.4 L (1.2-3.4) Toole # 0.2 (0.1-0.6) Eos # 0.0 (0.0-0.7) Baso # 0.01 (0.0-2.0) K/mm3 pCO2 92 H* (35-45) mm/Hg pO2 66.0 L (80-100) mm/Hg HCO3 48.5 H* (21-28) mmol/L ABG pH 7.33 L (7.35-7.45) ABG Total CO2 51.3 H (22-28) mmol.L ABG O2 Saturation 95.3 (95-98) % ABG O2 Content 13.4 L (15-23) ML/dl ABG Base Excess 18.9 H (-2.0-3.0) mmol/L ABG Hemoglobin 10.4 L (11.7-17.4) g/dL ABG Carboxyhemoglobin 2.9 H (0.5-1.5) % POC ABG HHb (Measured) 4.5 (0-5) % ABG Methemoglobin 1.2 (0.0-3.0) % ABG O2 Capacity 14.1 L (16-24) mL/dl Hgb O2 Saturation 91.5 L (95.0-98.0) % FiO2 40.0 % Sodium 142 (132-148) mmol/L Potassium 4.4 (3.6-5.0) mmol/L Chloride 94 L (98-107) mmol/L Carbon Dioxide 45 H (21-33) mmol/L Anion Gap 7 L (10-20) BUN 16 (7-21) mg/dL Creatinine 0.9 (0.5-1.4) mg/dL Est GFR ( Amer) > 60 Est GFR (Non-Af Amer) > 60 POC Glucose (mg/dL) 101 (65-110) mg/dL Random Glucose 144 H (70-110) mg/dL Lactic Acid (0.7-2.1) mmol/L Calcium 8.3 L (8.4-10.5) mg/dL Phosphorus 3.3 (2.5-4.5) mg/dL Magnesium 2.0 (1.7-2.2) mg/dL Total Bilirubin 0.4 (0.2-1.3) mg/dL AST 14 L (15-59) U/L ALT 31 (7-56) U/L Alkaline Phosphatase 70 (38-133) U/L Total Protein 6.8 (5.8-8.3) g/dL Albumin 3.2 (3.0-4.8) g/dL Globulin 3.5 gm/dL Albumin/Globulin Ratio 0.9 L (1.1-1.8) Urine Color (YELLOW) Urine Appearance (CLEAR) Urine pH (4.7-8.0) Ur Specific Avis (1.005-1.035) Urine Protein (<30 mg/dL) mg/dL Urine Glucose (UA) (NEGATIVE) mg/dL Urine Ketones (NEGATIVE) mg/dL Urine Blood (NEGATIVE) Urine Nitrate (NEGATIVE) Urine Bilirubin (NEGATIVE) Urine Urobilinogen (<1 E.U./dL) E.U./dL Ur Leukocyte Esterase (NEGATIVE) Kristina/uL Urine RBC (0-2) /hpf Urine WBC (0-6) /hpf Ur Epithelial Cells (0-5) /hpf Urine Bacteria (NEG) Influenza Typ A,B (EIA) (NEGATIVE) 02/23/17 02/22/17 Range/Units 01:50 22:40 WBC (4.5-11.0) 10^3/ul RBC (3.5-6.1) 10^6/uL Hgb (14.0-18.0) gm/dL Hct (42.0-52.0) % MCV (80.0-105.0) fL MCH (25.0-35.0) pg MCHC (31.0-37.0) g/dl RDW (11.5-14.5) % Plt Count (120.0-450.0) 10^3/uL MPV (7.0-11.0) fl Gran % (50.0-68.0) % Lymph % (Auto) (22.0-35.0) % Toole % (Auto) (1.0-6.0) % Eos % (Auto) (1.5-5.0) % Baso % (Auto) (0.0-3.0) % Gran # (1.4-6.5) Lymph # (1.2-3.4) Toole # (0.1-0.6) Eos # (0.0-0.7) Baso # (0.0-2.0) K/mm3 pCO2 101 H* (35-45) mm/Hg pO2 51.0 L (80-100) mm/Hg HCO3 48.6 H* (21-28) mmol/L ABG pH 7.29 L (7.35-7.45) ABG Total CO2 51.7 H (22-28) mmol.L ABG O2 Saturation 89.9 L (95-98) % ABG O2 Content 12.2 L (15-23) ML/dl ABG Base Excess 18.3 H (-2.0-3.0) mmol/L ABG Hemoglobin 10.1 L (11.7-17.4) g/dL ABG Carboxyhemoglobin 3.2 H (0.5-1.5) % POC ABG HHb (Measured) 9.7 H (0-5) % ABG Methemoglobin 1.2 (0.0-3.0) % ABG O2 Capacity 13.6 L (16-24) mL/dl Hgb O2 Saturation 86.0 L (95.0-98.0) % FiO2 40.0 % Sodium (132-148) mmol/L Potassium (3.6-5.0) mmol/L Chloride (98-107) mmol/L Carbon Dioxide (21-33) mmol/L Anion Gap (10-20) BUN (7-21) mg/dL Creatinine (0.5-1.4) mg/dL Est GFR ( Amer) Est GFR (Non-Af Amer) POC Glucose (mg/dL) (65-110) mg/dL Random Glucose (70-110) mg/dL Lactic Acid 1.0 (0.7-2.1) mmol/L Calcium (8.4-10.5) mg/dL Phosphorus (2.5-4.5) mg/dL Magnesium (1.7-2.2) mg/dL Total Bilirubin (0.2-1.3) mg/dL AST (15-59) U/L ALT (7-56) U/L Alkaline Phosphatase (38-133) U/L Total Protein (5.8-8.3) g/dL Albumin (3.0-4.8) g/dL Globulin gm/dL Albumin/Globulin Ratio (1.1-1.8) Urine Color Straw (YELLOW) Urine Appearance Clear (CLEAR) Urine pH 7.0 (4.7-8.0) Ur Specific Avis 1.015 (1.005-1.035) Urine Protein Negative (<30 mg/dL) mg/dL Urine Glucose (UA) Negative (NEGATIVE) mg/dL Urine Ketones Negative (NEGATIVE) mg/dL Urine Blood Small H (NEGATIVE) Urine Nitrate Negative (NEGATIVE) Urine Bilirubin Negative (NEGATIVE) Urine Urobilinogen 0.2 (<1 E.U./dL) E.U./dL Ur Leukocyte Esterase Negative (NEGATIVE) Kristina/uL Urine RBC 0 - 2 (0-2) /hpf Urine WBC 0 - 2 (0-6) /hpf Ur Epithelial Cells 0 - 2 (0-5) /hpf Urine Bacteria Trace (NEG) Influenza Typ A,B (EIA) Negative for flu a/b (NEGATIVE) Laboratory Results - last 24 hr 02/22/17 02/23/17 02/23/17 22:40 01:50 05:00 WBC 4.7 RBC 4.26 Hgb 10.3 L Hct 37.5 L MCV 88.0 MCH 24.2 L MCHC 27.5 L RDW 16.3 H Plt Count 128 MPV 10.1 Gran % 87.3 H Lymph % (Auto) 7.6 L Toole % (Auto) 4.7 Eos % (Auto) 0.2 L Baso % (Auto) 0.2 Gran # 4.13 Lymph # 0.4 L Toole # 0.2 Eos # 0.0 Baso # 0.01 pCO2 101 H* pO2 51.0 L HCO3 48.6 H* ABG pH 7.29 L ABG Total CO2 51.7 H ABG O2 Saturation 89.9 L ABG O2 Content 12.2 L ABG Base Excess 18.3 H ABG Hemoglobin 10.1 L ABG Carboxyhemoglobin 3.2 H POC ABG HHb (Measured) 9.7 H ABG Methemoglobin 1.2 ABG O2 Capacity 13.6 L Hgb O2 Saturation 86.0 L FiO2 40.0 Sodium 142 Potassium 4.4 Chloride 94 L Carbon Dioxide 45 H Anion Gap 7 L BUN 16 Creatinine 0.9 Est GFR ( Amer) > 60 Est GFR (Non-Af Amer) > 60 POC Glucose (mg/dL) Random Glucose 144 H Lactic Acid 1.0 Calcium 8.3 L Phosphorus 3.3 Magnesium 2.0 Total Bilirubin 0.4 AST 14 L ALT 31 Alkaline Phosphatase 70 Total Protein 6.8 Albumin 3.2 Globulin 3.5 Albumin/Globulin Ratio 0.9 L Urine Color Straw Urine Appearance Clear Urine pH 7.0 Ur Specific Avis 1.015 Urine Protein Negative Urine Glucose (UA) Negative Urine Ketones Negative Urine Blood Small H Urine Nitrate Negative Urine Bilirubin Negative Urine Urobilinogen 0.2 Ur Leukocyte Esterase Negative Urine RBC 0 - 2 Urine WBC 0 - 2 Ur Epithelial Cells 0 - 2 Urine Bacteria Trace Influenza Typ A,B (EIA) Negative for flu a/b 02/23/17 02/23/17 05:30 16:06 WBC RBC Hgb Hct MCV MCH MCHC RDW Plt Count MPV Gran % Lymph % (Auto) Toole % (Auto) Eos % (Auto) Baso % (Auto) Gran # Lymph # Toole # Eos # Baso # pCO2 92 H* pO2 66.0 L HCO3 48.5 H* ABG pH 7.33 L ABG Total CO2 51.3 H ABG O2 Saturation 95.3 ABG O2 Content 13.4 L ABG Base Excess 18.9 H ABG Hemoglobin 10.4 L ABG Carboxyhemoglobin 2.9 H POC ABG HHb (Measured) 4.5 ABG Methemoglobin 1.2 ABG O2 Capacity 14.1 L Hgb O2 Saturation 91.5 L FiO2 40.0 Sodium Potassium Chloride Carbon Dioxide Anion Gap BUN Creatinine Est GFR ( Amer) Est GFR (Non-Af Amer) POC Glucose (mg/dL) 101 Random Glucose Lactic Acid Calcium Phosphorus Magnesium Total Bilirubin AST ALT Alkaline Phosphatase Total Protein Albumin Globulin Albumin/Globulin Ratio Urine Color Urine Appearance Urine pH Ur Specific Avis Urine Protein Urine Glucose (UA) Urine Ketones Urine Blood Urine Nitrate Urine Bilirubin Urine Urobilinogen Ur Leukocyte Esterase Urine RBC Urine WBC Ur Epithelial Cells Urine Bacteria Influenza Typ A,B (EIA) Critical Care Progress Note - Nutrition Nutrition: Nutrition Category Date Time Status Heart Healthy Diet [DIET] Diets 02/23/17 Breakfast Ordered Attending/Attestation - Attestation I have personally seen and examined this patient.: Yes I have fully participated in the care of the patient.: Yes I have reviewed all pertinent clinical information: Yes Notes (Text): 02/23/17 17:26 71 y/o M w/ End stage COPD w/ Pulmonary HTN COPD exacerbation w/ Acute hypercarbic respiratory failure On IV steroids, Nebulizers, BIPAP 12/5 35% to help with CO2 clearance Pt is comfortable despite Co2 >90. Pt has chronic Bicarbonate elevation. Will try to diurese with Diamox to help unload Bicarbonate and help with the Co2. Pt and POA states that he is DNI. Palliative care to discuss about comfort care. Pt has COPD, likely SARBJIT and OHS contributing to his CO2 retention and poor QOL. cc time 55 min
--- NOTE | 2017-02-23 07:48 | RAD ---
HISTORY: sob COMPARISON: Comparison made with prior study 10/11/2016. FINDINGS: LUNGS: Patchy bilateral opacities consistent with some combination of subsegmental atelectasis and infiltrates. Questionable small right-sided PLEURA: No pneumothorax apparent. CARDIOVASCULAR: Normal. OSSEOUS STRUCTURES: No significant abnormalities. VISUALIZED UPPER ABDOMEN: Normal. OTHER FINDINGS: None. IMPRESSION: Patchy bilateral opacities consistent with subsegmental atelectasis and infiltrates. Questionable small right-sided effusion
--- NOTE | 2017-02-23 07:51 | RAD ---
HISTORY: On bipap, hypercapic COMPARISON: Comparison made with prior chest radiograph dated 02/22/2017. FINDINGS: LUNGS: Patchy bilateral opacities appear somewhat improved however there is persistent suspected atelectasis in the right lung base. Questionable right-sided effusion PLEURA: No significant pleural effusion identified, no pneumothorax apparent. CARDIOVASCULAR: Normal. OSSEOUS STRUCTURES: No significant abnormalities. VISUALIZED UPPER ABDOMEN: Normal. OTHER FINDINGS: None. IMPRESSION: Patchy bilateral opacities appear somewhat improved however there is persistent suspected atelectasis in the right lung base. Questionable right-sided effusion
[2017-02-23] MEDS: diltiaZEM 300 mg/24 Hours CD Cap PO SCH (09:10)
[2017-02-23] MEDS: Azithromycin 500MG/NS 250ml 250 ML IVPB SCH (09:11)
[2017-02-23] MEDS: Insulin Lispro (humaLOG) LOW Coverage SC SCH ×4 (09:12→22:55)
--- NOTE | 2017-02-23 09:37 | CP.PCM.PN ---
<Saskia Toney - Last Filed: 02/23/17 17:40> Subjective - Date & Time of Evaluation Date of Evaluation: 02/23/17 Time of Evaluation: 09:30 - Subjective Subjective: Hospitalist progress note for Dr. Jamie Fairchild Pt s/e at bedside in the ICU this AM. NAEO. Complains of a productive cough and constipation but denies CP, nausea, vomiting, diarrhea, fever, chills, or any other symptoms. Objective - Vital Signs/Intake and Output Vital Signs (last 24 hours): Temp Pulse Resp BP Pulse Ox 98.1 F 81 22 160/77 H 93 L 02/23/17 08:00 02/23/17 09:10 02/23/17 08:00 02/23/17 09:11 02/23/17 08:00 Intake and Output: 02/23/17 02/23/17 06:59 18:59 Intake Total 420 Output Total 380 Balance 420 -380 - Medications Medications: Current Medications Albuterol/Ipratropium (Duoneb 3 Mg/0.5 Mg (3 Ml) Ud) 3 ml IH Q2H PRN PRN Reason: Shortness of Breath Aspirin (Aspirin Chewable) 81 mg PO DAILY [facility] Last Admin: 02/23/17 09:10 Dose: 81 mg Budesonide (Pulmicort Respules) 0.5 mg IH [id number] TANMAY Diltiazem HCl (Cardizem Cd) 300 mg PO DAILY [facility] Last Admin: 02/23/17 09:10 Dose: 300 mg Furosemide (Lasix) 40 mg IVP DAILY [facility] Last Admin: 02/23/17 09:11 Dose: 40 mg Guaifenesin (Robitussin) 200 mg PO Q4H PRN PRN Reason: Cough and congestion Heparin Sodium (Porcine) (Heparin) 5,000 units SC Q12 TANMAY PRN Reason: Protocol Last Admin: 02/23/17 09:12 Dose: 5,000 units Azithromycin (Zithromax 500mg In Ns) 250 mls @ 167 mls/hr IVPB DAILY TANMAY PRN Reason: Protocol Last Admin: 02/23/17 09:11 Dose: 167 mls/hr Cefepime HCl (Maxipime 1gm) 100 mls @ 100 mls/hr IVPB Q8 TANMAY PRN Reason: Protocol Last Admin: 02/23/17 06:36 Dose: 100 mls/hr Insulin Human Lispro (Humalog Low) 0 units SC ACHS [facility] PRN Reason: Protocol Last Admin: 02/23/17 09:12 Dose: Not Given Methylprednisolone (Solu-Medrol) 40 mg IVP Q8H [facility] Last Admin: 02/23/17 06:37 Dose: 40 mg Ondansetron HCl (Zofran Inj) 4 mg IVP Q6H PRN PRN Reason: Nausea/Vomiting Pantoprazole Sodium (Protonix Inj) 40 mg IVP DAILY [facility] Last Admin: 02/23/17 09:11 Dose: 40 mg - Labs Labs: 02/23/17 05:00 02/23/17 05:00 - Constitutional Appears: Non-toxic - Head Exam Head Exam: ATRAUMATIC, NORMOCEPHALIC - Eye Exam Eye Exam: absent: Scleral icterus - ENT Exam ENT Exam: Mucous Membranes Moist, Normal Oropharynx - Respiratory Exam Respiratory Exam: Decreased Breath Sounds, Wheezes (right lower lung). absent: Rales, Rhonchi - Cardiovascular Exam Cardiovascular Exam: Tachycardia, REGULAR RHYTHM, +S1, +S2. absent: Murmur - GI/Abdominal Exam GI & Abdominal Exam: Distended (mild distention), Soft. absent: Tenderness - Extremities Exam Extremities Exam: absent: Calf Tenderness, Pedal Edema, Tenderness - Back Exam Back Exam: NORMAL INSPECTION - Neurological Exam Neurological Exam: Alert, Awake, Oriented x3 - Psychiatric Exam Psychiatric exam: Normal Affect, Normal Mood - Skin Skin Exam: Dry, Intact, Normal Color, Warm Assessment and Plan - Assessment and Plan (Free Text) Assessment: The patient is a 71M with a PMH of severe COPD (on 4L of O2 at home), pulmonary HTN, SARBJIT, psoriasis, HTN, NDDM, CAD (s/p stents), who is legally blind admitted to the ICU for acute hypercapneic respiratory distress due to acute COPD exacerbation and possible bilateral PNA. 1. Acute exacerbation of chronic COPD ABG on admit: CO2 101, O2 51, HCO3: 48.6, pH 7.29 ABG 02/23: CO2 92, 02 66, HCO3 48.5, pH 7.33 CXR 02/23: BL opacities, BL atelectasis and infiltrates improved since yesterday , possible right pleural effusion O2 low 90's on non-rebreather Plan: - Pulmonary consult--appreciate recs - duonebs Q4 tanmay, q2 PRN, IV solumedrol 40 Q8, Budesonide 0.5 IH Q12, robitussen PRN - Continue non-rebreather as needed to keep O2 levels between 93-95%. Decrease treatment if O2 sats >95% 2. Pneumonia CXR 02/23: BL opacities, BL atelectasis and infiltrates improved since yesterday , possible right pleural effusion No leukocytosis Plan - pulmonary consult: appreciate recs - procalcitonin, lactic acid pending - azithromycin, cefepime 3. History of pulmonary HTN ECHO 09/2016: 56% LVEF, mild pulmonary HTN, mild/mod tricuspid regurgitation Plan: - Pulmonology consult--Appreciate recs - Cardiology consult--appreciate recs - Repeat ECHO today - Lasix 40mg IV Daily - continue home Bosentan 125mg PO BID - monitor strict I/O's and daily weights and keep HOB>30 degrees 4. Chronic HTN mildly hypertensive in the ICU Plan: - Lasix 40IV Daily, cardizem 300mg PO daily - continue to monitor - Heart healthy, low sodium diet 5. NIDDM Mild hyperglycemia this AM Plan: - Humalog sliding scale insulin - continue to monitor - Accu-checks AC&HS - Carb consistent diet 6. History of CAD s/p coronary stents: EKG: Sinus tachycardia with intermittent PAC's, non-specific ST changes troponins neg x2 Plan: - Cardiology consult--appreciate recs - Continue to monitor, serial exams - ASA 81mg 7. Anxiety Currently not complaining of any anxiety Plan: - Restart home xanax 0.25mg BID PO 8. Constipation 2-3 days between bowel movements Plan: - Colace PO daily - Continue to monitor 9. Psoriasis skin lesions Chronic, will treat if symptomatic GI: IV protonix daily, DVT: SC Heparin Dispo: Continue inpatient admission in the ICU pending improvement of respiratory status and cardiac/pulmonary recommendations Diet: Heart healthy, low sodium, carb controlled diet Patient seen and discussed with Dr. Jamie Toney, PGY1 <Jamie Fairchild - Last Filed: 03/02/17 09:17> Objective - Vital Signs/Intake and Output Vital Signs (last 24 hours): Temp Pulse Resp BP Pulse Ox 98.9 F 79 18 160/79 H 91 L 02/24/17 12:00 02/24/17 12:00 02/24/17 12:00 02/24/17 12:00 02/24/17 12:00 Intake and Output: 02/24/17 02/24/17 06:59 18:59 Intake Total 380 1000 Output Total 600 500 Balance -220 500 - Medications Medications: Current Medications Albuterol/Ipratropium (Duoneb 3 Mg/0.5 Mg (3 Ml) Ud) 3 ml IH Q2H PRN PRN Reason: Shortness of Breath Last Admin: 02/24/17 13:46 Dose: 3 ml Alprazolam (Xanax) 0.25 mg PO BID PRN; Protocol PRN Reason: Anxiety Stop: 03/02/17 18:01 Last Admin: 02/23/17 21:35 Dose: 0.25 mg Aspirin (Aspirin Chewable) 81 mg PO DAILY [facility] Last Admin: 02/24/17 10:14 Dose: 81 mg Budesonide (Pulmicort Respules) 0.5 mg IH [id number] [facility] Last Admin: 02/24/17 07:39 Dose: 0.5 mg Diltiazem HCl (Cardizem Cd) 300 mg PO DAILY [facility] Last Admin: 02/24/17 10:14 Dose: 300 mg Docusate Sodium (Colace) 100 mg PO DAILY [facility] Last Admin: 02/24/17 10:15 Dose: 100 mg Furosemide (Lasix) 40 mg IVP DAILY [facility] Guaifenesin (Robitussin) 200 mg PO Q4H PRN PRN Reason: Cough and congestion Last Admin: 02/24/17 16:06 Dose: 200 mg Heparin Sodium (Porcine) (Heparin) 5,000 units SC Q12 TANMAY PRN Reason: Protocol Last Admin: 02/24/17 10:15 Dose: 5,000 units Azithromycin (Zithromax 500mg In Ns) 250 mls @ 167 mls/hr IVPB DAILY [facility] PRN Reason: Protocol Last Admin: 02/24/17 10:22 Dose: 167 mls/hr Insulin Human Lispro (Humalog Low) 0 units SC ACHS [facility] PRN Reason: Protocol Last Admin: 02/24/17 12:08 Dose: 1 units Methylprednisolone (Solu-Medrol) 40 mg IVP Q8H [facility] Last Admin: 02/24/17 16:06 Dose: 40 mg Non-Formulary Medication (Bosentan [Tracleer]) 125 mg PO BID [facility] Last Admin: 02/24/17 10:14 Dose: 125 mg Ondansetron HCl (Zofran Inj) 4 mg IVP Q6H PRN PRN Reason: Nausea/Vomiting Pantoprazole Sodium (Protonix Inj) 40 mg IVP DAILY [facility] Last Admin: 02/24/17 10:17 Dose: 40 mg - Labs Labs: 02/24/17 05:30 02/24/17 05:30 Attending/Attestation - Attestation I have personally seen and examined this patient.: Yes I have fully participated in the care of the patient.: Yes I have reviewed all pertinent clinical information, including history, physical exam and plan: Yes Notes (Text): I have seen and examined patient with the resident. Agree with the residents note with the following additions/ exceptions: This is 71 years old male with history of severe COPD (on 4L of O2 at home), pulmonary HTN, SARBJIT, psoriasis, HTN , NDDM, CAD (s/p stents), who is legally blind admitted to the ICU for acute hypercapneic respiratory distress due to acute COPD exacerbation and bilateral PNA. Continue duonebs, solumedrol, zithro and cefepime. Cardiology evaluation is pending at this time. Patient needs to be monitored in ICU. Dr Payton is on the case.Upon discharge the patient will follow up with PMD and pulmonary Dr. oliveira. Dr Jamie Fairchild
[2017-02-23] MEDS ORDERED: cefTRIAXone 1 gm 100 ML IVPB SCH (10:00)
--- NOTE | 2017-02-23 10:14 | CARD ---
APPROVED REPORT EKG Measurement Heart [id number] <Conclusion> Sinus tachycardia with premature atrial complexes Nonspecific ST and T wave abnormality Abnormal ECG
--- NOTE | 2017-02-23 10:49 | CON ---
DATE: 02/23/2017 HISTORY OF PRESENT ILLNESS: The patient is a 71-year-old gentleman. He is legally blind. He has a history of severe COPD and remains on home oxygen therapy, history of pulmonary hypertension, history of obstructive sleep apnea, history of coronary artery disease with hypertension and non-insulin- dependent diabetes mellitus. The patient came to the hospital with cough and shortness of breath. He complained of respiratory insufficiency. Was seen in the Emergency Room and placed on BiPAP. His original blood gas had a pCO2 of over 100 and a pO2 of 50 with a pH of 7.29. He was in acute respiratory failure and was admitted to the intensive care unit for further evaluation and treatment. The past history is well known to us as he is frequent patient of ours only in the hospital. He does not come to the office for any treatment, although has been asked to do so. There have been many discussions with the patient regarding the multiple hospitalizations and his compliance. We have discussed the need for home nursing with the patient. We have discussed with the patient to consider DNR status. All of these to no avail. PAST MEDICAL HISTORY: Has been related above. He has had multiple problems as described above including blindness, renal failure, diabetes mellitus, congestive heart failure, chronic obstructive pulmonary disease, obstructive sleep apnea, morbid obesity, blindness and coronary artery disease. Dyspnea on exertion. All other systems negative. ALLERGIES: He has no known allergies. MEDICATIONS: His medication at home are not located on the chart. I do not know if his old chart medications description is consistent with that which he takes today. I will need to review these and discussed these with the youth accommodation support worker who is stationed here in the intensive care unit. FAMILY HISTORY: History of coronary artery disease and congestive heart failure , history of chronic obstructive pulmonary disease. SOCIAL HISTORY: The patient did smoke in the past, does not smoke any longer. He uses home oxygen therapy as well as hand nebulizer therapy. He is probably compliant with his medication but I have noticed, due to his blindness, that he often makes mistakes in what he is taking. Home care is essential and nursing followup is essential as well. REVIEW OF SYSTEMS: Cannot be asked to the patient at this time, but I have reviewed the chart and find the following items which include additionally a history of deafness, renal insufficiency, renal failure and psychological problems with anxiety and depression. He has gastroesophageal reflux disease as well. PHYSICAL EXAMINATION: GENERAL: The patient is resting in the intensive care unit on BiPAP. VITAL SIGNS: Show a heart rate of 100, respiratory rate of 20, blood pressure 100/70, pulse ox is 93% on BiPAP and supplemental oxygen. HEAD: Normocephalic, atraumatic. EYES: PERRLA. EOMs full. ENT: Negative. NECK: Supple. No JVD, no lymphadenopathy, no bruit. RESPIRATORY: Scattered wheezes and rhonchi and rales throughout both lung soto. HEART: Regular rhythm, S1, S2. Soft systolic ejection murmur at the lower left sternal border. ABDOMEN: Obese, bowel sounds normoactive without mass, guarding, rebound or organomegaly. EXTREMITIES: Reveal no clubbing. There is cyanosis noted and there is definitely edema of both lower extremities. The patient also has psoriatic skin lesions. NEUROLOGIC: Unable to complete due to his current status. LYMPHATICS: Lymphadenopathy is not present. There are no lymph nodes noted in the supraclavicular notch nor in the cervical, inguinal or axillary areas. LABORATORY STUDIES: White count 5700, hemoglobin 11.5, hematocrit 42.5, chloride 138, sodium 144, potassium 4.5, chloride 90, CO2 of 50, BUN 15, creatinine 0.9, glucose 127. Please note the CO2 of 50. Arterial blood gas initially pH 7.29, pCO2 of 101, pO2 of 51 - severe respiratory acidosis with combined metabolic acidosis and hypoxemia. ASSESSMENT: 1. Pulmonary arteriolar hypertension (PAH). 2. Respiratory failure. 3. Chronic obstructive pulmonary disease exacerbation. 4. Congestive heart failure. 5. Morbid obesity. 6. Obstructive sleep apnea. 7. Diabetes mellitus. 8. Coronary artery disease. 9. Hypercapnia with hypoxemia. 10. X-ray showing pleural effusions and bilateral pulmonary vascular congestion and infiltrates. 11. Pneumonitis. PLAN: Continue BiPAP with supplemental oxygen, bronchodilators and inhaled corticosteroids, IV corticosteroids and BiPAP. The patient will require antibiotics for bilateral pneumonia. Continue mucolytics and continue bosentan. Check followup liver function studies to make sure that LFT showed no significant abnormalities due to these problems. The liver function appeared to be normal at this time, but must be monitored. The patient, with his multiple hospitalizations, must consider DNR status. The overall prognosis remains poor (long-term). The short-term prognosis is poor as well, but he has rallied after similar situations in the past. We will continue vigorous and intensive therapy to change the abnormalities noted on his examination, blood work, etc. Shayan Payton MD cc: [id number] TT: 02/23/2017 10:17:57 Confirmation # [id number] Dictation # [id number] me 02/23/2017 09:48:24 MARINO
[2017-02-23] MEDS: Albuterol-Ipratrop 3 mg / 0.5 (3 ml) UD IH PRN ×2 (11:03→20:20)
--- NOTE | 2017-02-23 15:34 | CARD ---
APPROVED REPORT EXAM: Two-dimensional and M-mode echocardiogram with Doppler and color Doppler. INDICATION PAH/RESPIRATORY FAILURE 2D DIMENSIONS Left Atrium (2D)5.5 (1.6-4.0cm)IVSd1.0 (0.7-1.1cm) LVDd4.4 (3.9-5.9cm)PWd1.2 (0.7-1.1cm) LVDs3.2 (2.5-4.0cm)FS (%) 27.7 % LVEF (%)54.0 (>50%) M-Mode DIMENSIONS Aortic Root3.60 (2.2-3.7cm)Aortic Cusp Exc.2.00 (1.5-2.0cm) Aortic Valve AoV Peak Qrafnpey513.0cm/Cuca Peak GR.11mmHgLVOT Peak Acqaiexa08.0cm/s LVOT VTI23.40cm Mitral Valve MV E Cbbamywn93.8cm/sMV A Vunetcwd28.8cm/sE/A ratio0.6 TDI Lateral E' Peak V11.40cm/sMedial E' Peak V9.07cm/sE/Lateral E'5.0 E/Medial E'6.3 Pulmonary Valve PV Peak Gmjfitaz16.3cm/sPV Peak Grad.3mmHg Tricuspid Valve TR Peak Qiovagcu433fv/sRAP AONVHPWZ45maKvDF Peak Gr.48mmHg [id number] LEFT VENTRICLE The left ventricle is normal size. There is normal left ventricular wall thickness. The left ventricular function is normal. The left ventricular ejection fraction is within the normal range. There is a flattened septum Transmitral Doppler flow pattern is Grade I-abnormal relaxation pattern. RIGHT VENTRICLE The right ventricle is mildly dilated. There is normal right ventricular wall thickness. RV Systolic function is mildly reduced. ATRIA The left atrium size is normal. The right atrium is mildly dilated. AORTIC VALVE The aortic valve is moderately thickened. No aortic regurgitation is present. There is no aortic valvular stenosis. MITRAL VALVE The mitral valve is normal in structure. There is no mitral valve regurgitation noted. TRICUSPID VALVE There is mild tricuspid regurgitation. There is moderate pulmonary hypertension. GREAT VESSELS The aortic root is normal in size. The IVC is normal in size and collapses >50% with inspiration. PERICARDIAL EFFUSION There is no pericardial effusion. <Conclusion> The left ventricle is normal size. There is normal left ventricular wall thickness. The left ventricular function is normal. The left ventricular ejection fraction is within the normal range. There is a flattened septum Transmitral Doppler flow pattern is Grade I-abnormal relaxation pattern. The right ventricle is mildly dilated. RV Systolic function is mildly reduced. There is moderate pulmonary hypertension.
[2017-02-23] MEDS: BOSENTAN 125 MG PO SCH (17:33)
[2017-02-23 17:46] LABS: ARTERIAL BLOOD GAS HCO3 42.8 mmol/L (21-28); ARTERIAL BLOOD GAS O2 CAPACITY 12.9 mL/dl (16-24); ARTERIAL BLOOD GAS O2 CONTENT 12.3 ML/dl (15-23); ARTERIAL BLOOD GAS PH 7.37 (7.35-7.45); ARTERIAL BLOOD HGB O2 SAT 91.8 % (95.0-98.0); CARBOXYHEMOGLOBIN 2.7 % (0.5-1.5); HHB 4.7 % (0-5); METHEMOGLOBIN 0.8 % (0.0-3.0)
[2017-02-23] MEDS ORDERED: BOSENTAN 125 MG PO SCH ×2 (18:00)
[2017-02-23] MEDS: Budesonide 0.5 mg/2 ml Inhal Susp UD IH SCH (20:20)
[2017-02-24 05:39] LABS: ADD MANUAL DIFF? NO
[2017-02-24 05:43] LABS: BASO # 0.01 K/mm3 (0.0-2.0); BASO % 0.2 % (0.0-3.0); GRAN # 4.26 (1.4-6.5); GRAN % 84.7 % (50.0-68.0); HEMATOCRIT 40.5 % (42.0-52.0); LYMPH # 0.6 (1.2-3.4); LYMPH % 11.7 % (22.0-35.0); MEAN CELL VOLUME 86.9 fL (80.0-105.0); MEAN CORPUSCULAR HGB CONC 27.7 g/dl (31.0-37.0); MEAN PLATELET VOLUME 10.2 fl (7.0-11.0); MONO # 0.2 (0.1-0.6); MONO % 3.4 % (1.0-6.0); PLATELET COUNT 164 10^3/uL (120.0-450.0); RED CELL DISTRIBUTION WIDTH 16.8 % (11.5-14.5)
[2017-02-24] MEDS: Cefepime 1gm in NS 100ml 100 ML IVPB SCH (06:00)
[2017-02-24] MEDS: MethylPREDNISolone 40 mg Vial IVP SCH ×3 (06:17→21:00)
[2017-02-24 06:21] LABS: ARTERIAL BLOOD GAS HCO3 38.7 mmol/L (21-28); ARTERIAL BLOOD GAS O2 CAPACITY 14.8 mL/dl (16-24); ARTERIAL BLOOD GAS O2 CONTENT 13.9 ML/dl (15-23); ARTERIAL BLOOD GAS PH 7.37 (7.35-7.45); CARBOXYHEMOGLOBIN 2.6 % (0.5-1.5); HHB 5.9 % (0-5); METHEMOGLOBIN 0.6 % (0.0-3.0)
[2017-02-24 06:34] LABS: ALB/GLOB RATIO 0.9 (1.1-1.8); ALKALINE PHOSPHATASE 72 U/L (38-133); ALT/SGPT 27 U/L (7-56); AST/SGOT 19 U/L (15-59); BILIRUBIN,TOTAL 0.5 mg/dL (0.2-1.3); BLOOD UREA NITROGEN 21 mg/dL (7-21); CHLORIDE 97 mmol/L (98-107); GFR AFRICAN-AMERICAN > 60; GLUCOSE,RANDOM 158 mg/dL (70-110); MAGNESIUM 2.2 mg/dL (1.7-2.2); PHOSPHOROUS 3.6 mg/dL (2.5-4.5); POTASSIUM 4.3 mmol/L (3.6-5.0); SODIUM 143 mmol/L (132-148); TOTAL PROTEIN 7.8 g/dL (5.8-8.3)
[2017-02-24 06:43] LABS: CARBON DIOXIDE 39 mmol/L (21-33)
--- NOTE | 2017-02-24 07:02 | CP.PCM.PN ---
<Saskia Toney - Last Filed: 02/24/17 18:19> Subjective - Date & Time of Evaluation Date of Evaluation: 02/24/17 Time of Evaluation: 09:45 - Subjective Subjective: Hospitalist progress note for Dr. Jamie Fairchild Pt s/e at bedside this AM. NAEO. Patient was on BIPAP overnight but is on NC during interview without any SOB or cough with O2 sat 89-91%. Reports intermittent productive cough improved since yesterday and mild constipation, but denies fevers, chills, diarrhea, dysuria, back pain, headache, chest pain, or any other symptoms. Patient is somewhat anxious about his current health and wondering if he will get better and how to prevent coming to the hospital in chago future. Objective - Vital Signs/Intake and Output Vital Signs (last 24 hours): Temp Pulse Resp BP Pulse Ox 99.3 F 63 22 149/59 L 93 L 02/24/17 04:00 02/24/17 04:00 02/24/17 04:00 02/24/17 04:00 02/24/17 04:00 - Medications Medications: Current Medications Albuterol/Ipratropium (Duoneb 3 Mg/0.5 Mg (3 Ml) Ud) 3 ml IH Q2H PRN PRN Reason: Shortness of Breath Last Admin: 02/23/17 20:20 Dose: 3 ml Alprazolam (Xanax) 0.25 mg PO BID PRN; Protocol PRN Reason: Anxiety Stop: 03/02/17 18:01 Last Admin: 02/23/17 21:35 Dose: 0.25 mg Aspirin (Aspirin Chewable) 81 mg PO DAILY [facility] Last Admin: 02/23/17 09:10 Dose: 81 mg Budesonide (Pulmicort Respules) 0.5 mg IH [id number] [facility] Last Admin: 02/23/17 20:20 Dose: 0.5 mg Diltiazem HCl (Cardizem Cd) 300 mg PO DAILY [facility] Last Admin: 02/23/17 09:10 Dose: 300 mg Docusate Sodium (Colace) 100 mg PO DAILY [facility] Last Admin: 02/23/17 17:33 Dose: Not Given Furosemide (Lasix) 40 mg IVP DAILY [facility] Guaifenesin (Robitussin) 200 mg PO Q4H PRN PRN Reason: Cough and congestion Heparin Sodium (Porcine) (Heparin) 5,000 units SC Q12 TANMAY PRN Reason: Protocol Last Admin: 02/23/17 21:33 Dose: 5,000 units Azithromycin (Zithromax 500mg In Ns) 250 mls @ 167 mls/hr IVPB DAILY TANMAY PRN Reason: Protocol Last Admin: 02/23/17 09:11 Dose: 167 mls/hr Cefepime HCl (Maxipime 1gm) 100 mls @ 100 mls/hr IVPB Q8 TANMAY PRN Reason: Protocol Last Admin: 02/23/17 21:30 Dose: 100 mls/hr Insulin Human Lispro (Humalog Low) 0 units SC ACHS [facility] PRN Reason: Protocol Last Admin: 02/23/17 22:55 Dose: Not Given Methylprednisolone (Solu-Medrol) 40 mg IVP Q8H [facility] Last Admin: 02/23/17 22:54 Dose: 40 mg Non-Formulary Medication (Bosentan [Tracleer]) 125 mg PO BID [facility] Last Admin: 02/23/17 17:33 Dose: Not Given Ondansetron HCl (Zofran Inj) 4 mg IVP Q6H PRN PRN Reason: Nausea/Vomiting Pantoprazole Sodium (Protonix Inj) 40 mg IVP DAILY [facility] Last Admin: 02/23/17 09:11 Dose: 40 mg - Labs Labs: 02/24/17 05:30 02/23/17 05:00 - Constitutional Appears: Well, Non-toxic, No Acute Distress - Head Exam Head Exam: ATRAUMATIC, NORMOCEPHALIC - Eye Exam Eye Exam: absent: Conjunctival injection, Periorbital swelling, Scleral icterus - ENT Exam ENT Exam: Mucous Membranes Moist, Normal Oropharynx - Respiratory Exam Respiratory Exam: Decreased Breath Sounds (lower lobes R>L), NORMAL BREATHING PATTERN. absent: Accessory Muscle Use, Rales, Rhonchi, Wheezes - Cardiovascular Exam Cardiovascular Exam: +S1, +S2. absent: Bradycardia, Tachycardia, REGULAR RHYTHM (intermittent pre-atrial contractions), Murmur - GI/Abdominal Exam GI & Abdominal Exam: Distended (mildly distended), Soft. absent: Guarding, Tenderness - Extremities Exam Extremities Exam: Pedal Edema (1+ pitting pedal edema). absent: Calf Tenderness - Back Exam Back Exam: NORMAL INSPECTION. absent: CVA tenderness (L), CVA tenderness (R) - Neurological Exam Neurological Exam: Alert, Awake, Oriented x3 - Psychiatric Exam Psychiatric exam: Normal Affect, Normal Mood - Skin Skin Exam: Dry, Intact, Normal Color, Warm Additional comments: psoriatic plaques on arms and legs Assessment and Plan - Assessment and Plan (Free Text) Assessment: The patient is a 71M with a PMH of severe COPD (on 4L of O2 at home), pulmonary HTN, SARBJIT, psoriasis, HTN, NIDDM, CAD (s/p stents), who is legally blind admitted to the ICU for acute hypercapneic respiratory distress due to acute COPD exacerbation and possible bilateral PNA. 1. Acute exacerbation of chronic COPD ABG on admit: CO2 101, O2 51, HCO3: 48.6, pH 7.29 ABG 02/24 improved: CO2 67, 02 62, HCO3 38.7, pH 7.37 CXR 02/24: improved venous congestion, resolution of R middle and Left lower lung airspace disease Pulmonary consult recs: continue current therapy, monitor LFT's, poor prognosis Plan: - Pulmonary consult--appreciate recs - duonebs Q4 tanmay, q2 PRN, IV solumedrol 40 Q8, Budesonide 0.5 IH Q12, robitussen PRN, bosentan - titrate steroids per pulmonary - Continue nasal canulla as needed to keep O2 levels between 93-95%. Return to BiPAP if needed. Decrease treatment if O2 sats >95% - Continue BiPAP at night 2. Pneumonia CXR 02/24: improved venous congestion, resolution of R middle and Left lower lung airspace disease No leukocytosis Plan - pulmonary consult: appreciate recs - procalcitonin, lactic acid pending - azithromycin - Swallow eval to assess for aspiration risk 3. History of pulmonary HTN. Diastolic CHF ECHO 09/2016: 56% LVEF, mild pulmonary HTN, mild/mod tricuspid regurgitation ECHO 02/24: LVEF wnl, grade 1 relaxing abnormality, moderate pulmonary HTN Plan: - Pulmonology consult--Appreciate recs - Cardiology consult--appreciate recs - Repeat ECHO today - Lasix 40mg IV Daily - continue home Bosentan 125mg PO BID - monitor strict I/O's and daily weights and keep HOB>30 degrees 4. Chronic HTN hypertensive in the ICU this AM Plan: - Lasix 40IV Daily, cardizem 300mg PO daily - continue to monitor - Heart healthy, low sodium diet 5. NIDDM Mild hyperglycemia this AM Plan: - Humalog sliding scale insulin - continue to monitor - Accu-checks AC&HS - Carb consistent diet 6. History of CAD s/p coronary stents: EKG: Sinus tachycardia with intermittent PAC's, non-specific ST changes troponins neg x2 Plan: - Cardiology consult--appreciate recs - Continue to monitor, serial exams - ASA 81mg 7. Anxiety Currently not complaining of any anxiety Plan: - Restart home xanax 0.25mg BID PO 8. Constipation 2-3 days between bowel movements Plan: - Colace PO daily - Continue to monitor 9. Psoriasis skin lesions Chronic, will treat if symptomatic GI: IV protonix daily, DVT: SC Heparin Dispo: Continue inpatient admission in the ICU pending improvement of respiratory status and cardiac/pulmonary recommendations Diet: Heart healthy, low sodium, carb controlled diet Patient seen and discussed with Dr. Jamie Toney, PGY1 <Jamie Fairchild B - Last Filed: 03/02/17 09:11> Objective - Vital Signs/Intake and Output Vital Signs (last 24 hours): Temp Pulse Resp BP Pulse Ox 98.1 F 77 20 123/60 93 L 02/27/17 16:00 02/27/17 16:00 02/27/17 16:00 02/27/17 16:00 02/27/17 16:00 - Labs Labs: 02/27/17 07:30 02/27/17 07:30 Attending/Attestation - Attestation I have personally seen and examined this patient.: Yes I have fully participated in the care of the patient.: Yes I have reviewed all pertinent clinical information, including history, physical exam and plan: Yes Notes (Text): Patient seen and examined with resident.This is a 71 year old, legally blind, man with a history of severe COPD (on 4L of O2 at home), pulmonary hypertension , obstructive sleep apnea, psoriasis, HTN, NDDM and CAD (s/p stents), who presents with 2 days of worsening SOB, NIETO, wheezing and generalized malaise and found to have copd exacerbation. He was Treated with BiPAP and oxygen. Evaluated by pulmonary Dr. Payton. Patient is clinically improving. Denies any cough or shortness of breath. continue DuoNeb, IV Solu-Medrol. Cardiology evaluation with Dr. Loyd appreciated. Continue aspirin, Cardizem, Lipitor. PT evaluation requested. Continue CPAP at night and oxygen during daytime. Upon discharge the patient will follow up with PMD and pulmonary Dr. oliveira. Dr Jamie Fairchild
[2017-02-24] MEDS: Budesonide 0.5 mg/2 ml Inhal Susp UD IH SCH ×2 (07:39→20:12)
[2017-02-24] MEDS: Albuterol-Ipratrop 3 mg / 0.5 (3 ml) UD IH PRN ×3 (07:39→20:12)
--- NOTE | 2017-02-24 07:39 | CP.CCUPN ---
<Beth Rueda - Last Filed: 02/24/17 13:05> CCU Subjective - Physician Review Subjective (Free Text): 02/23/17 14:11 tried off Bipap 7am. cannot maintained O2 sat. Back on Trial off bipap again 11Am. desat to 80s during echocardiogram Bipap back on 2:15pm 02/24/17 07:37 Pt is using bipap and tolerating well. (+) NIETO. Able to complete 1 sentence on bipap without deSat Denies dizziness, CP, SOB at rest, palpitation, N/V/C/D. Last BM was 2-3 days ago. CCU Objective - Vital Signs / Intake & Output Vital Signs (Last 4 hours): Vital Signs Temp Pulse Resp BP Pulse Ox 02/24/17 04:00 99.3 F 63 22 149/59 L 93 L Intake and Output (Last 8hrs): Intake & Output 02/23/17 02/24/17 02/24/17 22:59 06:59 14:59 Intake Total 200 Output Total 850 Balance -650 Intake: IV 200 Left Antecubital 200 Output: Urine 850 Urine, Voided 850 Other: Voiding Method Urinal - Physical Exam Head: Positive for: Atraumatic Conjunctiva: Positive for: Injected Mouth: Positive for: Moist Mucous Membranes Neck: Positive for: Normal Range of Motion, MIDLINE TENDERNESS Respiratory/Chest: Positive for: Decreased Breath Sounds (b/l lower lobes), Rales (bibasilar, improved). Negative for: Respiratory Distress, Wheezes Cardiovascular: Positive for: Regular Rate and Rhythm, Murmurs (systolic), Normal S1, S2 Abdomen: Positive for: Normal Bowel Sounds. Negative for: Tenderness, Distention, Peritoneal Signs, Rebound Genitourinary Male: Negative for: Penile Swelling Upper Extremity: Positive for: NORMAL PULSES Lower Extremity: Positive for: Edema (trace), NORMAL PULSES Neurological: Positive for: GCS=15, Motor Func Grossly Intact, Normal Sensory Function Skin: Positive for: Warm, Dry, Rashes (chronic appearing diffuse) Psychiatric: Positive for: Alert, Oriented x 3 - Medications Active Medications: Active Medications Generic Name Dose Route Start Last Admin Trade Name Freq PRN Reason Stop Dose Admin Albuterol/Ipratropium 3 ml 02/22/17 22:54 02/23/17 20:20 Duoneb 3 Mg/0.5 Mg (3 Ml) Ud IH 3 ml Q2H PRN Administration Shortness of Breath Alprazolam 0.25 mg 02/23/17 17:37 02/23/17 21:35 Xanax PO 03/02/17 18:01 0.25 mg BID PRN Administration Anxiety Protocol Aspirin 81 mg 02/23/17 10:00 02/23/17 09:10 Aspirin Chewable PO 81 mg DAILY [facility] Administration Budesonide 0.5 mg 02/23/17 20:00 02/23/17 20:20 Pulmicort Respules IH 0.5 mg [id number] [facility] Administration Diltiazem HCl 300 mg 02/23/17 10:00 02/23/17 09:10 Cardizem Cd PO 300 mg DAILY [facility] Administration Docusate Sodium 100 mg 02/23/17 13:30 02/23/17 17:33 Colace PO Not Given DAILY [facility] Furosemide 40 mg 02/24/17 10:00 Lasix IVP DAILY [facility] Guaifenesin 200 mg 02/22/17 23:00 Robitussin PO Q4H PRN Cough and congestion Heparin Sodium (Porcine) 5,000 units 02/23/17 10:00 02/23/17 21:33 Heparin SC 5,000 units Q12 [facility] Administration Protocol Azithromycin 250 mls @ 167 mls/hr 02/23/17 10:00 02/23/17 09:11 Zithromax 500mg In Ns IVPB 167 mls/hr DAILY [facility] Administration Protocol Cefepime HCl 100 mls @ 100 mls/hr 02/23/17 06:00 02/24/17 06:00 Maxipime 1gm IVPB 100 mls/hr Q8 [facility] Administration Protocol Insulin Human Lispro 0 units 02/23/17 07:30 02/23/17 22:55 Humalog Low SC Not Given ACHS [facility] Protocol Methylprednisolone 40 mg 02/22/17 23:00 02/24/17 06:17 Solu-Medrol IVP 40 mg Q8H [facility] Administration Non-Formulary Medication 125 mg 02/23/17 18:00 02/23/17 17:33 Bosentan [Tracleer] PO Not Given BID [facility] Ondansetron HCl 4 mg 02/22/17 22:49 Zofran Inj IVP Q6H PRN Nausea/Vomiting Pantoprazole Sodium 40 mg 02/23/17 10:00 02/23/17 09:11 Protonix Inj IVP 40 mg DAILY [facility] Administration - Patient Studies Lab Studies: Lab Studies 02/24/17 02/24/17 02/23/17 Range/Units 06:00 05:30 21:45 WBC 5.0 (4.5-11.0) 10^3/ul RBC 4.66 (3.5-6.1) 10^6/uL Hgb 11.2 L (14.0-18.0) gm/dL Hct 40.5 L (42.0-52.0) % MCV 86.9 (80.0-105.0) fL MCH 24.0 L (25.0-35.0) pg MCHC 27.7 L (31.0-37.0) g/dl RDW 16.8 H (11.5-14.5) % Plt Count 164 (120.0-450.0) 10^3/uL MPV 10.2 (7.0-11.0) fl Gran % 84.7 H (50.0-68.0) % Lymph % (Auto) 11.7 L (22.0-35.0) % Ward % (Auto) 3.4 (1.0-6.0) % Eos % (Auto) 0.0 L (1.5-5.0) % Baso % (Auto) 0.2 (0.0-3.0) % Gran # 4.26 (1.4-6.5) Lymph # 0.6 L (1.2-3.4) Ward # 0.2 (0.1-0.6) Eos # 0.0 (0.0-0.7) Baso # 0.01 (0.0-2.0) K/mm3 pCO2 67 H (35-45) mm/Hg pO2 62.0 L (80-100) mm/Hg HCO3 38.7 H (21-28) mmol/L ABG pH 7.37 (7.35-7.45) ABG Total CO2 40.8 H (22-28) mmol.L ABG O2 Saturation 93.9 L (95-98) % ABG O2 Content 13.9 L (15-23) ML/dl ABG Base Excess 11.2 H (-2.0-3.0) mmol/L ABG Hemoglobin 10.8 L (11.7-17.4) g/dL ABG Carboxyhemoglobin 2.6 H (0.5-1.5) % POC ABG HHb (Measured) 5.9 H (0-5) % ABG Methemoglobin 0.6 (0.0-3.0) % ABG O2 Capacity 14.8 L (16-24) mL/dl Hgb O2 Saturation 91.0 L (95.0-98.0) % FiO2 30.0 % Sodium 143 (132-148) mmol/L Potassium 4.3 (3.6-5.0) mmol/L Chloride 97 L (98-107) mmol/L Carbon Dioxide 39 H (21-33) mmol/L Anion Gap 11 (10-20) BUN 21 (7-21) mg/dL Creatinine 1.2 (0.5-1.4) mg/dL Est GFR ( Amer) > 60 Est GFR (Non-Af Amer) 59 POC Glucose (mg/dL) 143 H (65-110) mg/dL Random Glucose 158 H (70-110) mg/dL Calcium 9.0 (8.4-10.5) mg/dL Phosphorus 3.6 (2.5-4.5) mg/dL Magnesium 2.2 (1.7-2.2) mg/dL Total Bilirubin 0.5 (0.2-1.3) mg/dL AST 19 (15-59) U/L ALT 27 (7-56) U/L Alkaline Phosphatase 72 (38-133) U/L Total Protein 7.8 (5.8-8.3) g/dL Albumin 3.6 (3.0-4.8) g/dL Globulin 4.1 gm/dL Albumin/Globulin Ratio 0.9 L (1.1-1.8) 02/23/17 02/23/17 Range/Units 17:40 16:06 WBC (4.5-11.0) 10^3/ul RBC (3.5-6.1) 10^6/uL Hgb (14.0-18.0) gm/dL Hct (42.0-52.0) % MCV (80.0-105.0) fL MCH (25.0-35.0) pg MCHC (31.0-37.0) g/dl RDW (11.5-14.5) % Plt Count (120.0-450.0) 10^3/uL MPV (7.0-11.0) fl Gran % (50.0-68.0) % Lymph % (Auto) (22.0-35.0) % Ward % (Auto) (1.0-6.0) % Eos % (Auto) (1.5-5.0) % Baso % (Auto) (0.0-3.0) % Gran # (1.4-6.5) Lymph # (1.2-3.4) Ward # (0.1-0.6) Eos # (0.0-0.7) Baso # (0.0-2.0) K/mm3 pCO2 74 H* (35-45) mm/Hg pO2 65.0 L (80-100) mm/Hg HCO3 42.8 H* (21-28) mmol/L ABG pH 7.37 (7.35-7.45) ABG Total CO2 45.1 H (22-28) mmol.L ABG O2 Saturation 95.1 (95-98) % ABG O2 Content 12.3 L (15-23) ML/dl ABG Base Excess 15.1 H (-2.0-3.0) mmol/L ABG Hemoglobin 9.5 L (11.7-17.4) g/dL ABG Carboxyhemoglobin 2.7 H (0.5-1.5) % POC ABG HHb (Measured) 4.7 (0-5) % ABG Methemoglobin 0.8 (0.0-3.0) % ABG O2 Capacity 12.9 L (16-24) mL/dl Hgb O2 Saturation 91.8 L (95.0-98.0) % FiO2 30.0 % Sodium (132-148) mmol/L Potassium (3.6-5.0) mmol/L Chloride (98-107) mmol/L Carbon Dioxide (21-33) mmol/L Anion Gap (10-20) BUN (7-21) mg/dL Creatinine (0.5-1.4) mg/dL Est GFR ( Amer) Est GFR (Non-Af Amer) POC Glucose (mg/dL) 101 (65-110) mg/dL Random Glucose (70-110) mg/dL Calcium (8.4-10.5) mg/dL Phosphorus (2.5-4.5) mg/dL Magnesium (1.7-2.2) mg/dL Total Bilirubin (0.2-1.3) mg/dL AST (15-59) U/L ALT (7-56) U/L Alkaline Phosphatase (38-133) U/L Total Protein (5.8-8.3) g/dL Albumin (3.0-4.8) g/dL Globulin gm/dL Albumin/Globulin Ratio (1.1-1.8) Laboratory Results - last 24 hr 02/23/17 02/23/17 02/23/17 16:06 17:40 21:45 WBC RBC Hgb Hct MCV MCH MCHC RDW Plt Count MPV Gran % Lymph % (Auto) Ward % (Auto) Eos % (Auto) Baso % (Auto) Gran # Lymph # Ward # Eos # Baso # pCO2 74 H* pO2 65.0 L HCO3 42.8 H* ABG pH 7.37 ABG Total CO2 45.1 H ABG O2 Saturation 95.1 ABG O2 Content 12.3 L ABG Base Excess 15.1 H ABG Hemoglobin 9.5 L ABG Carboxyhemoglobin 2.7 H POC ABG HHb (Measured) 4.7 ABG Methemoglobin 0.8 ABG O2 Capacity 12.9 L Hgb O2 Saturation 91.8 L FiO2 30.0 Sodium Potassium Chloride Carbon Dioxide Anion Gap BUN Creatinine Est GFR ( Amer) Est GFR (Non-Af Amer) POC Glucose (mg/dL) 101 143 H Random Glucose Calcium Phosphorus Magnesium Total Bilirubin AST ALT Alkaline Phosphatase Total Protein Albumin Globulin Albumin/Globulin Ratio 02/24/17 02/24/17 05:30 06:00 WBC 5.0 RBC 4.66 Hgb 11.2 L Hct 40.5 L MCV 86.9 MCH 24.0 L MCHC 27.7 L RDW 16.8 H Plt Count 164 MPV 10.2 Gran % 84.7 H Lymph % (Auto) 11.7 L Ward % (Auto) 3.4 Eos % (Auto) 0.0 L Baso % (Auto) 0.2 Gran # 4.26 Lymph # 0.6 L Ward # 0.2 Eos # 0.0 Baso # 0.01 pCO2 67 H pO2 62.0 L HCO3 38.7 H ABG pH 7.37 ABG Total CO2 40.8 H ABG O2 Saturation 93.9 L ABG O2 Content 13.9 L ABG Base Excess 11.2 H ABG Hemoglobin 10.8 L ABG Carboxyhemoglobin 2.6 H POC ABG HHb (Measured) 5.9 H ABG Methemoglobin 0.6 ABG O2 Capacity 14.8 L Hgb O2 Saturation 91.0 L FiO2 30.0 Sodium 143 Potassium 4.3 Chloride 97 L Carbon Dioxide 39 H Anion Gap 11 BUN 21 Creatinine 1.2 Est GFR ( Amer) > 60 Est GFR (Non-Af Amer) 59 POC Glucose (mg/dL) Random Glucose 158 H Calcium 9.0 Phosphorus 3.6 Magnesium 2.2 Total Bilirubin 0.5 AST 19 ALT 27 Alkaline Phosphatase 72 Total Protein 7.8 Albumin 3.6 Globulin 4.1 Albumin/Globulin Ratio 0.9 L Fingerstick Blood Sugar Results: 143 Critical Care Progress Note - Nutrition Nutrition: Nutrition Category Date Time Status Heart Healthy Diet [DIET] Diets 02/23/17 Breakfast Ordered Assessment/Plan - Assessment and Plan (Free Text) Plan: 71 M, blind since 1 y/o, 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 On ED arrival, he was in acute hypercapic respiratory distress (PCO2 101, pH 7.29) due to b/l CAP-PNA and COPD exacerbation, acute on chronic. CXR shows b/l opacities poss R pleural effusion. Initial BP at 90-105. Resp alkalosis improves. He is on IV steroids, Nebulizers, BIPAP 12/5 35% to help with CO2 clearance . Today: Pt still on bipap. Not tapering steroid yet. pH normalizes. HCO3 approaches baseline. Neuro - blind since childbirth, AAOx3 - decreased hearing from URI - improved Pulm - acute on chronic hypercapneic respiratory acidoses due to acute on chronic COPD and bilateral PNA (+/- right-sided pleural effusion) - acute hypoxic respiratory failure - from hypoxic vasoconstriction and Bohr effect - Want to proximate his baseline HCO3. Given acetazolamide x 1. (MOA: block the conversion of CO2 into bicarbonate, so PCO2 is higher, to induce metabolic acidosis to increase respiratory drive. unload Bicarbonate and help with the Co2. ----- 5pm ABG: pH 7.37. PCO2 67 (approching baseline @ 50s-60) - Duo-nebs Q4hrs and Q2hrs PRN - Bipap 12/5/16/30% - IV Solumedrol 40mg Q8hrs - empiric IV Cefepime and Azithromycin for b/l lung opacities - PRN Robitussan - continue home med of Bosentan 125mg po BID for pulmonary HTN - f/u blood and urine cultures --- Moderate Pulm HTN; R ventricle mildly dilated, Grade 1 relaxation pattern. Flatten septum. EF 54% Cardiac: - history of CAD (with PCI's) and HTN - BNP is normal with clinical evidence of mild fluid overload - IV Lasix 40mg daily - STILL OH HOLD- (No lasix to avoid volume contraction metabolic alkalosis) - strict I/O's (wet diapers) and daily weights and keep HOB>30 degrees - ASA 81mg po daily - continue home medication of Diltiazem 300mg po daily for HTN - heart healthy diet Infectious Disease: - (Tmax 99.9 02/22 8pm), WBC 5.7 --> 4.7, VBG lactate 0.7 - START Zithromax (day 1). STOP empiric IV Cefepime (day 2) and Azithromycin ( day 2) for new bilateral pneumonia - In ED, got 1 dose vanco and , rocephin, and zosyn - Pending Panculture, procalitonin level - normal white count with low-grade fevers (Tmax:99.9) Nephrol - Incontinence urine, uses urinal GI - Carb consist - Zofran PRN Endocrine: - NIDDM - hold all home oral hypoglycemic meds - ISSS - low; Accu-checks AC&HS Skin - Chronic Psoriasis, extremities and torso - reddened, flushed skin with dry, whitish-yellow, thick, scaly, flaky patches. Prophalxis: - SQ Herparin and SCD's, IV Protonix Disposition - Touch base with palliative re: QOL and goal of care - plan after transit to floor re: chronic CO2 and Hicarb elevation. Consult: - pulmonary = Dr. Edmond - Cardiology = Dr. Caldera - Palliative consult Prognosis - poor in both long and short-term S/R/D/w Dr. Janelle Fairchild - Date & Time Date: 02/24/17 Time: 07:47 <Gurinder PAIZ,Frances H - Last Filed: 02/24/17 13:45> CCU Objective - Vital Signs / Intake & Output Vital Signs (Last 4 hours): Vital Signs Temp Pulse Resp BP Pulse Ox 02/24/17 12:00 98.9 F 79 18 160/79 H 91 L 02/24/17 10:14 78 143/87 02/24/17 10:00 76 22 143/87 89 L Intake and Output (Last 8hrs): Intake & Output 02/23/17 02/24/17 02/24/17 22:59 06:59 14:59 Intake Total 593 930 3151 Output Total 850 600 500 Balance -650 -220 500 Weight 187 lb 3 oz Intake: IV 200 250 Left Antecubital 200 250 Oral 180 750 Other 200 Output: Urine 850 600 500 Urine, Voided 850 600 500 Other: Voiding Method Urinal Urinal # Bowel Movements 0 - Medications Active Medications: Active Medications Generic Name Dose Route Start Last Admin Trade Name Freq PRN Reason Stop Dose Admin Albuterol/Ipratropium 3 ml 02/22/17 22:54 02/24/17 07:39 Duoneb 3 Mg/0.5 Mg (3 Ml) Ud IH 3 ml Q2H PRN Administration Shortness of Breath Alprazolam 0.25 mg 02/23/17 17:37 02/23/17 21:35 Xanax PO 03/02/17 18:01 0.25 mg BID PRN Administration Anxiety Protocol Aspirin 81 mg 02/23/17 10:00 02/24/17 10:14 Aspirin Chewable PO 81 mg DAILY [facility] Administration Budesonide 0.5 mg 02/23/17 20:00 02/24/17 07:39 Pulmicort Respules IH 0.5 mg [id number] [facility] Administration Diltiazem HCl 300 mg 02/23/17 10:00 02/24/17 10:14 Cardizem Cd PO 300 mg DAILY [facility] Administration Docusate Sodium 100 mg 02/23/17 13:30 02/24/17 10:15 Colace PO 100 mg DAILY [facility] Administration Furosemide 40 mg 02/24/17 10:00 Lasix IVP DAILY [facility] Guaifenesin 200 mg 02/22/17 23:00 Robitussin PO Q4H PRN Cough and congestion Heparin Sodium (Porcine) 5,000 units 02/23/17 10:00 02/24/17 10:15 Heparin SC 5,000 units Q12 [facility] Administration Protocol Azithromycin 250 mls @ 167 mls/hr 02/23/17 10:00 02/24/17 10:22 Zithromax 500mg In Ns IVPB 167 mls/hr DAILY [facility] Administration Protocol Insulin Human Lispro 0 units 02/23/17 07:30 02/24/17 12:08 Humalog Low SC 1 units ACHS [facility] Administration Protocol Methylprednisolone 40 mg 02/22/17 23:00 02/24/17 06:17 Solu-Medrol IVP 40 mg Q8H [facility] Administration Non-Formulary Medication 125 mg 02/23/17 18:00 02/24/17 10:14 Bosentan [Tracleer] PO 125 mg BID [facility] Administration Ondansetron HCl 4 mg 02/22/17 22:49 Zofran Inj IVP Q6H PRN Nausea/Vomiting Pantoprazole Sodium 40 mg 02/23/17 10:00 02/24/17 10:17 Protonix Inj IVP 40 mg DAILY [facility] Administration - Patient Studies Lab Studies: Microbiology Studies 02/22/17 23:00 MRSA Culture (Admit) - Final Nose MRSA NOT DETECTED 02/22/17 22:40 Urine Culture - Final Urine No Growth (<1,000 CFU/ML) Lab Studies 02/24/17 02/24/17 02/24/17 Range/Units 11:27 07:27 06:00 WBC (4.5-11.0) 10^3/ul RBC (3.5-6.1) 10^6/uL Hgb (14.0-18.0) gm/dL Hct (42.0-52.0) % MCV (80.0-105.0) fL MCH (25.0-35.0) pg MCHC (31.0-37.0) g/dl RDW (11.5-14.5) % Plt Count (120.0-450.0) 10^3/uL MPV (7.0-11.0) fl Gran % (50.0-68.0) % Lymph % (Auto) (22.0-35.0) % Ward % (Auto) (1.0-6.0) % Eos % (Auto) (1.5-5.0) % Baso % (Auto) (0.0-3.0) % Gran # (1.4-6.5) Lymph # (1.2-3.4) Ward # (0.1-0.6) Eos # (0.0-0.7) Baso # (0.0-2.0) K/mm3 pCO2 67 H (35-45) mm/Hg pO2 62.0 L (80-100) mm/Hg HCO3 38.7 H (21-28) mmol/L ABG pH 7.37 (7.35-7.45) ABG Total CO2 40.8 H (22-28) mmol.L ABG O2 Saturation 93.9 L (95-98) % ABG O2 Content 13.9 L (15-23) ML/dl ABG Base Excess 11.2 H (-2.0-3.0) mmol/L ABG Hemoglobin 10.8 L (11.7-17.4) g/dL ABG Carboxyhemoglobin 2.6 H (0.5-1.5) % POC ABG HHb (Measured) 5.9 H (0-5) % ABG Methemoglobin 0.6 (0.0-3.0) % ABG O2 Capacity 14.8 L (16-24) mL/dl Hgb O2 Saturation 91.0 L (95.0-98.0) % FiO2 30.0 % Sodium (132-148) mmol/L Potassium (3.6-5.0) mmol/L Chloride (98-107) mmol/L Carbon Dioxide (21-33) mmol/L Anion Gap (10-20) BUN (7-21) mg/dL Creatinine (0.5-1.4) mg/dL Est GFR ( Amer) Est GFR (Non-Af Amer) POC Glucose (mg/dL) 199 H 132 H (65-110) mg/dL Random Glucose (70-110) mg/dL Calcium (8.4-10.5) mg/dL Phosphorus (2.5-4.5) mg/dL Magnesium (1.7-2.2) mg/dL Total Bilirubin (0.2-1.3) mg/dL AST (15-59) U/L ALT (7-56) U/L Alkaline Phosphatase (38-133) U/L Total Protein (5.8-8.3) g/dL Albumin (3.0-4.8) g/dL Globulin gm/dL Albumin/Globulin Ratio (1.1-1.8) 02/24/17 02/23/17 02/23/17 Range/Units 05:30 21:45 17:40 WBC 5.0 (4.5-11.0) 10^3/ul RBC 4.66 (3.5-6.1) 10^6/uL Hgb 11.2 L (14.0-18.0) gm/dL Hct 40.5 L (42.0-52.0) % MCV 86.9 (80.0-105.0) fL MCH 24.0 L (25.0-35.0) pg MCHC 27.7 L (31.0-37.0) g/dl RDW 16.8 H (11.5-14.5) % Plt Count 164 (120.0-450.0) 10^3/uL MPV 10.2 (7.0-11.0) fl Gran % 84.7 H (50.0-68.0) % Lymph % (Auto) 11.7 L (22.0-35.0) % Ward % (Auto) 3.4 (1.0-6.0) % Eos % (Auto) 0.0 L (1.5-5.0) % Baso % (Auto) 0.2 (0.0-3.0) % Gran # 4.26 (1.4-6.5) Lymph # 0.6 L (1.2-3.4) Ward # 0.2 (0.1-0.6) Eos # 0.0 (0.0-0.7) Baso # 0.01 (0.0-2.0) K/mm3 pCO2 74 H* (35-45) mm/Hg pO2 65.0 L (80-100) mm/Hg HCO3 42.8 H* (21-28) mmol/L ABG pH 7.37 (7.35-7.45) ABG Total CO2 45.1 H (22-28) mmol.L ABG O2 Saturation 95.1 (95-98) % ABG O2 Content 12.3 L (15-23) ML/dl ABG Base Excess 15.1 H (-2.0-3.0) mmol/L ABG Hemoglobin 9.5 L (11.7-17.4) g/dL ABG Carboxyhemoglobin 2.7 H (0.5-1.5) % POC ABG HHb (Measured) 4.7 (0-5) % ABG Methemoglobin 0.8 (0.0-3.0) % ABG O2 Capacity 12.9 L (16-24) mL/dl Hgb O2 Saturation 91.8 L (95.0-98.0) % FiO2 30.0 % Sodium 143 (132-148) mmol/L Potassium 4.3 (3.6-5.0) mmol/L Chloride 97 L (98-107) mmol/L Carbon Dioxide 39 H (21-33) mmol/L Anion Gap 11 (10-20) BUN 21 (7-21) mg/dL Creatinine 1.2 (0.5-1.4) mg/dL Est GFR ( Amer) > 60 Est GFR (Non-Af Amer) 59 POC Glucose (mg/dL) 143 H (65-110) mg/dL Random Glucose 158 H (70-110) mg/dL Calcium 9.0 (8.4-10.5) mg/dL Phosphorus 3.6 (2.5-4.5) mg/dL Magnesium 2.2 (1.7-2.2) mg/dL Total Bilirubin 0.5 (0.2-1.3) mg/dL AST 19 (15-59) U/L ALT 27 (7-56) U/L Alkaline Phosphatase 72 (38-133) U/L Total Protein 7.8 (5.8-8.3) g/dL Albumin 3.6 (3.0-4.8) g/dL Globulin 4.1 gm/dL Albumin/Globulin Ratio 0.9 L (1.1-1.8) 02/23/17 02/23/17 02/23/17 Range/Units 16:06 11:37 07:38 WBC (4.5-11.0) 10^3/ul RBC (3.5-6.1) 10^6/uL Hgb (14.0-18.0) gm/dL Hct (42.0-52.0) % MCV (80.0-105.0) fL MCH (25.0-35.0) pg MCHC (31.0-37.0) g/dl RDW (11.5-14.5) % Plt Count (120.0-450.0) 10^3/uL MPV (7.0-11.0) fl Gran % (50.0-68.0) % Lymph % (Auto) (22.0-35.0) % Ward % (Auto) (1.0-6.0) % Eos % (Auto) (1.5-5.0) % Baso % (Auto) (0.0-3.0) % Gran # (1.4-6.5) Lymph # (1.2-3.4) Ward # (0.1-0.6) Eos # (0.0-0.7) Baso # (0.0-2.0) K/mm3 pCO2 (35-45) mm/Hg pO2 (80-100) mm/Hg HCO3 (21-28) mmol/L ABG pH (7.35-7.45) ABG Total CO2 (22-28) mmol.L ABG O2 Saturation (95-98) % ABG O2 Content (15-23) ML/dl ABG Base Excess (-2.0-3.0) mmol/L ABG Hemoglobin (11.7-17.4) g/dL ABG Carboxyhemoglobin (0.5-1.5) % POC ABG HHb (Measured) (0-5) % ABG Methemoglobin (0.0-3.0) % ABG O2 Capacity (16-24) mL/dl Hgb O2 Saturation (95.0-98.0) % FiO2 % Sodium (132-148) mmol/L Potassium (3.6-5.0) mmol/L Chloride (98-107) mmol/L Carbon Dioxide (21-33) mmol/L Anion Gap (10-20) BUN (7-21) mg/dL Creatinine (0.5-1.4) mg/dL Est GFR ( Amer) Est GFR (Non-Af Amer) POC Glucose (mg/dL) 101 178 H 131 H (65-110) mg/dL Random Glucose (70-110) mg/dL Calcium (8.4-10.5) mg/dL Phosphorus (2.5-4.5) mg/dL Magnesium (1.7-2.2) mg/dL Total Bilirubin (0.2-1.3) mg/dL AST (15-59) U/L ALT (7-56) U/L Alkaline Phosphatase (38-133) U/L Total Protein (5.8-8.3) g/dL Albumin (3.0-4.8) g/dL Globulin gm/dL Albumin/Globulin Ratio (1.1-1.8) Laboratory Results - last 24 hr 02/23/17 02/23/17 02/23/17 07:38 11:37 16:06 WBC RBC Hgb Hct MCV MCH MCHC RDW Plt Count MPV Gran % Lymph % (Auto) Ward % (Auto) Eos % (Auto) Baso % (Auto) Gran # Lymph # Ward # Eos # Baso # pCO2 pO2 HCO3 ABG pH ABG Total CO2 ABG O2 Saturation ABG O2 Content ABG Base Excess ABG Hemoglobin ABG Carboxyhemoglobin POC ABG HHb (Measured) ABG Methemoglobin ABG O2 Capacity Hgb O2 Saturation FiO2 Sodium Potassium Chloride Carbon Dioxide Anion Gap BUN Creatinine Est GFR ( Amer) Est GFR (Non-Af Amer) POC Glucose (mg/dL) 131 H 178 H 101 Random Glucose Calcium Phosphorus Magnesium Total Bilirubin AST ALT Alkaline Phosphatase Total Protein Albumin Globulin Albumin/Globulin Ratio 02/23/17 02/23/17 02/24/17 17:40 21:45 05:30 WBC 5.0 RBC 4.66 Hgb 11.2 L Hct 40.5 L MCV 86.9 MCH 24.0 L MCHC 27.7 L RDW 16.8 H Plt Count 164 MPV 10.2 Gran % 84.7 H Lymph % (Auto) 11.7 L Ward % (Auto) 3.4 Eos % (Auto) 0.0 L Baso % (Auto) 0.2 Gran # 4.26 Lymph # 0.6 L Ward # 0.2 Eos # 0.0 Baso # 0.01 pCO2 74 H* pO2 65.0 L HCO3 42.8 H* ABG pH 7.37 ABG Total CO2 45.1 H ABG O2 Saturation 95.1 ABG O2 Content 12.3 L ABG Base Excess 15.1 H ABG Hemoglobin 9.5 L ABG Carboxyhemoglobin 2.7 H POC ABG HHb (Measured) 4.7 ABG Methemoglobin 0.8 ABG O2 Capacity 12.9 L Hgb O2 Saturation 91.8 L FiO2 30.0 Sodium 143 Potassium 4.3 Chloride 97 L Carbon Dioxide 39 H Anion Gap 11 BUN 21 Creatinine 1.2 Est GFR ( Amer) > 60 Est GFR (Non-Af Amer) 59 POC Glucose (mg/dL) 143 H Random Glucose 158 H Calcium 9.0 Phosphorus 3.6 Magnesium 2.2 Total Bilirubin 0.5 AST 19 ALT 27 Alkaline Phosphatase 72 Total Protein 7.8 Albumin 3.6 Globulin 4.1 Albumin/Globulin Ratio 0.9 L 02/24/17 02/24/17 02/24/17 06:00 07:27 11:27 WBC RBC Hgb Hct MCV MCH MCHC RDW Plt Count MPV Gran % Lymph % (Auto) Ward % (Auto) Eos % (Auto) Baso % (Auto) Gran # Lymph # Ward # Eos # Baso # pCO2 67 H pO2 62.0 L HCO3 38.7 H ABG pH 7.37 ABG Total CO2 40.8 H ABG O2 Saturation 93.9 L ABG O2 Content 13.9 L ABG Base Excess 11.2 H ABG Hemoglobin 10.8 L ABG Carboxyhemoglobin 2.6 H POC ABG HHb (Measured) 5.9 H ABG Methemoglobin 0.6 ABG O2 Capacity 14.8 L Hgb O2 Saturation 91.0 L FiO2 30.0 Sodium Potassium Chloride Carbon Dioxide Anion Gap BUN Creatinine Est GFR ( Amer) Est GFR (Non-Af Amer) POC Glucose (mg/dL) 132 H 199 H Random Glucose Calcium Phosphorus Magnesium Total Bilirubin AST ALT Alkaline Phosphatase Total Protein Albumin Globulin Albumin/Globulin Ratio Critical Care Progress Note - Nutrition Nutrition: Nutrition Category Date Time Status Heart Healthy Diet [DIET] Diets 02/23/17 Breakfast Ordered Attending/Attestation - Attestation I have personally seen and examined this patient.: Yes I have fully participated in the care of the patient.: Yes I have reviewed all pertinent clinical information: Yes Notes (Text): 02/24/17 13:42 71 y/o M w/ END stage COPD , Moderate pulmonary HTn and OHS , SARBJIT, R Heart enlargement S/P Diamox, which helped his ability for short term help with CO2 retention . Off BIPAP for majority of the day . On 4L N.[place] to keep 02> 88% DNI. ON Bosentan for Pulm HTN . ON duonebs, Steroids and needs Pulmonary rehab if willing. Paliative care in discussions for possible comfort care, hospice. Would be cautious w/ fluid over load and Use of Lasix in consideration to the patient's bicarbonate load. Heparin sq TID cc time 55 min
--- NOTE | 2017-02-24 10:04 | RAD ---
HISTORY: f/u COMPARISON: 02/22/2017. FINDINGS: LUNGS: There is pulmonary venous congestion and prominent central vasculature. There is interval resolution of right mid lung and left lower lobe airspace disease. There is also interval improvement in pulmonary venous congestion. PLEURA: No significant pleural effusion identified, no pneumothorax apparent. CARDIOVASCULAR: The heart remains enlarged. OSSEOUS STRUCTURES: No significant abnormalities. VISUALIZED UPPER ABDOMEN: Normal. OTHER FINDINGS: None. IMPRESSION: Improving pulmonary venous congestion. Interval resolution of right mid lung and left lower lobe airspace disease.
[2017-02-24] MEDS: diltiaZEM 300 mg/24 Hours CD Cap PO SCH (10:14)
[2017-02-24] MEDS: BOSENTAN 125 MG PO SCH ×2 (10:14→17:13)
[2017-02-24] MEDS: Insulin Lispro (humaLOG) LOW Coverage SC SCH ×4 (10:17→21:41)
[2017-02-24] MEDS: Azithromycin 500MG/NS 250ml 250 ML IVPB SCH (10:22)
--- NOTE | 2017-02-24 10:38 | PN ---
DATE: 02/24/2017 PULMONARY PROGRESS NOTE The patient is awake and alert in the intensive care unit. He is off BiPAP at the moment. He is comfortable. He is markedly improved from yesterday. He is no longer obtunded. He is able to answer full questions and give complete history. We have discussed waiting too long when he has any deterioration in status, before it is too late coming to the Emergency Room with severe respiratory failure. The patient is markedly improved today. We had discussed his general status with the housekeeper child care at the bedside. Clinically he is markedly improved. PHYSICAL EXAMINATION: GENERAL: He is resting comfortably, sitting in bed, but asking to get out of bed. BiPAP is not on at this time. VITAL SIGNS: Stable. Heart rate 80, respiratory rate 18, blood pressure 120/70 , oxygen sat 94% on supplemental oxygen. HEENT: Normocephalic, atraumatic. Eyes PERRLA. EOMs full. NECK: Supple, no JVD, no lymphadenopathy, no bruit, no CHF. I note no thyromegaly. RESPIRATORY: Decreased breath sounds throughout, minimal rales and wheezes appreciated. Marked improvement from yesterday. HEART: Regular rhythm. S1, S2. Systolic ejection murmur at the lower left sternal border. ABDOMEN: Obese, soft, bowel sounds normoactive without mass, guarding, rebound or organomegaly. EXTREMITIES: Reveal no clubbing. There is some mild cyanosis and edema. NEUROLOGIC: No focal findings. Awake and alert. Mental status is fine. Lymphadenopathy is not present. RECENT LABORATORY DATA: Shows a chest x-ray that shows clearing of congestive heart failure. No acute infiltrates can be identified, but the chest x-ray is poorly penetrated and a followup film in the morning will be helpful in further evaluating the status. Recent blood gases were done. ASSESSMENT: 1. Status post respiratory failure. 2. Pulmonary arterial hypertension. 3. Chronic obstructive pulmonary disease. 4. Congestive heart failure. 5. Morbid obesity. 6. Obstructive sleep apnea. 7. Diabetes mellitus. 8. Coronary artery disease. 9. Pneumonitis. PLAN: Continue BiPAP while sleeping. Follow up arterial blood gas to make sure there is adequate oxygenation and normal pCO2. Continue bronchodilators and corticosteroids. Decrease the corticosteroids slowly. I have discussed the patient's status with his relative, Racheal, and she is aware of his status. I will speak to her again today and make sure she is aware of his improvement. We will follow closely with you and decide on the need for further intervention based on clinical response. Thank you for the opportunity to see the patient once again. Shayan Payton MD cc: [id number] TT: 02/24/2017 10:37:41 Confirmation # [id number] Dictation # [id number] daniel PICHARDO
--- NOTE | 2017-02-24 14:40 | CP.PCM.CON ---
History of Present Illness - History of Present Illness History of Present Illness: Palliative consult requested by Dr Janelle Mcghee Reason: Goals of care 71 year old male admitted with COPD exacerbation, bilateral pneumonia, respiratory distress PMBx: end stage COPD, O2 dependent( 4L), pulmonary hypertension, obstructive sleep apnea, psoriasis, HTN, CAD s/p stents, he is legally blind and hard off hearing. Social History: Former smoker, no alcohol or drug abuse. Lives with his niece Racheal Vitale. Family History : Non Contributory Advance Care Planning: The patient's health care proxy Racheal Vitale (POA) makes his medical decisions. Review of Systems: Weakness, gait disfunction, dyspnea on exertion.All other systems negative Past Patient History - Infectious Disease Hx of Infectious Diseases: None - Tetanus Immunizations Tetanus Immunization: Up to Date - Past Social History Smoking Status: Former Smoker - CARDIAC Hx Cardiac Disorders: Yes Hx Congestive Heart Failure: Yes Hx Hypertension: Yes - PULMONARY Hx Chronic Obstructive Pulmonary Disease (COPD): Yes (end stage) - NEUROLOGICAL Hx Neurological Disorder: Yes (Blind since the age of 1.) - HEENT Hx HEENT Problems: Yes ([place] Hx Blind: Yes (since age 1) Hx Deafness: Yes ([place]) - RENAL Hx Renal Failure: Yes - ENDOCRINE/METABOLIC Hx Diabetes Mellitus Type 2: Yes ([place]) - HEMATOLOGICAL/ONCOLOGICAL Hx Blood Disorders: Yes Hx Cancer: Yes (lung mass) - INTEGUMENTARY Hx Dermatological Problems: Yes (Reddened, flush skin, dry and taut. Thickened, whitish-yellowish skin patch) Hx Psoriasis: Yes Other/Comment: Generalized body surface area, including extremities and torso with reddened, flushed skin with dry, whitish-yellow, thick, scaly, flaky patches. - MUSCULOSKELETAL/RHEUMATOLOGICAL Hx Falls: Yes (past) - GASTROINTESTINAL Hx Gastrointestinal Disorders: Yes (reflux) - GENITOURINARY/GYNECOLOGICAL Hx Reproductive Disorders: No - PSYCHIATRIC Hx Psychophysiologic Disorder: Yes Hx Anxiety: Yes Hx Depression: Yes Hx Substance Use: No - SURGICAL HISTORY Hx Appendectomy: Yes Hx Cardiac Catheterization: Yes Hx Coronary Stent: Yes - ANESTHESIA Hx Anesthesia Reactions: No Hx Malignant Hyperthermia: No Meds Allergies/Adverse Reactions: Allergies Allergy/AdvReac Type Severity Reaction Status Date / Time No Known Allergies Allergy Verified 02/22/17 20:33 - Medications Medications: Current Medications Albuterol/Ipratropium (Duoneb 3 Mg/0.5 Mg (3 Ml) Ud) 3 ml IH Q2H PRN PRN Reason: Shortness of Breath Last Admin: 02/24/17 13:46 Dose: 3 ml Alprazolam (Xanax) 0.25 mg PO BID PRN; Protocol PRN Reason: Anxiety Stop: 03/02/17 18:01 Last Admin: 02/23/17 21:35 Dose: 0.25 mg Aspirin (Aspirin Chewable) 81 mg PO DAILY [facility] Last Admin: 02/24/17 10:14 Dose: 81 mg Budesonide (Pulmicort Respules) 0.5 mg IH [id number] [facility] Last Admin: 02/24/17 07:39 Dose: 0.5 mg Diltiazem HCl (Cardizem Cd) 300 mg PO DAILY [facility] Last Admin: 02/24/17 10:14 Dose: 300 mg Docusate Sodium (Colace) 100 mg PO DAILY [facility] Last Admin: 02/24/17 10:15 Dose: 100 mg Furosemide (Lasix) 40 mg IVP DAILY [facility] Guaifenesin (Robitussin) 200 mg PO Q4H PRN PRN Reason: Cough and congestion Heparin Sodium (Porcine) (Heparin) 5,000 units SC Q12 [facility] PRN Reason: Protocol Last Admin: 02/24/17 10:15 Dose: 5,000 units Azithromycin (Zithromax 500mg In Ns) 250 mls @ 167 mls/hr IVPB DAILY [facility] PRN Reason: Protocol Last Admin: 02/24/17 10:22 Dose: 167 mls/hr Insulin Human Lispro (Humalog Low) 0 units SC ACHS [facility] PRN Reason: Protocol Last Admin: 02/24/17 12:08 Dose: 1 units Methylprednisolone (Solu-Medrol) 40 mg IVP Q8H [facility] Last Admin: 02/24/17 06:17 Dose: 40 mg Non-Formulary Medication (Bosentan [Tracleer]) 125 mg PO BID [facility] Last Admin: 02/24/17 10:14 Dose: 125 mg Ondansetron HCl (Zofran Inj) 4 mg IVP Q6H PRN PRN Reason: Nausea/Vomiting Pantoprazole Sodium (Protonix Inj) 40 mg IVP DAILY [facility] Last Admin: 02/24/17 10:17 Dose: 40 mg Physical Exam - Constitutional Appears: No Acute Distress, Chronically Ill - Head Exam Head Exam: NORMAL INSPECTION - Eye Exam Eye Exam: PERRL - ENT Exam ENT Exam: Mucous Membranes Moist, Normal Oropharynx - Neck Exam Neck exam: Positive for: Normal Inspection - Respiratory Exam Respiratory Exam: Decreased Breath Sounds, Rhonchi Additional comments: dyspnea on exertion - Cardiovascular Exam Cardiovascular Exam: REGULAR RHYTHM, +S1, +S2 - GI/Abdominal Exam GI & Abdominal Exam: Normal Bowel Sounds, Soft Additional comments: no tenderness - Extremities Exam Extremities exam: Positive for: pedal edema, pedal pulses present - Skin Skin Exam: Cyanosis, Dry Additional comments: psoriatic lesions on extremities - Additional Findings Additional findings: Palliative performance scale rating 30 % Results - Vital Signs Recent Vital Signs: Last Vital Signs Temp 98.9 F 02/24/17 12:00 Pulse 79 02/24/17 12:00 Resp 18 02/24/17 12:00 BP 160/79 H 02/24/17 12:00 Pulse Ox 91 L 02/24/17 12:00 - Labs Result Diagrams: 02/24/17 05:30 02/24/17 05:30 Labs: Laboratory Results - last 24 hr 02/23/17 02/23/17 02/23/17 07:38 11:37 16:06 WBC RBC Hgb Hct MCV MCH MCHC RDW Plt Count MPV Gran % Lymph % (Auto) Ransom % (Auto) Eos % (Auto) Baso % (Auto) Gran # Lymph # Ransom # Eos # Baso # pCO2 pO2 HCO3 ABG pH ABG Total CO2 ABG O2 Saturation ABG O2 Content ABG Base Excess ABG Hemoglobin ABG Carboxyhemoglobin POC ABG HHb (Measured) ABG Methemoglobin ABG O2 Capacity Hgb O2 Saturation FiO2 Sodium Potassium Chloride Carbon Dioxide Anion Gap BUN Creatinine Est GFR ( Amer) Est GFR (Non-Af Amer) POC Glucose (mg/dL) 131 H 178 H 101 Random Glucose Calcium Phosphorus Magnesium Total Bilirubin AST ALT Alkaline Phosphatase Total Protein Albumin Globulin Albumin/Globulin Ratio 02/23/17 02/23/17 02/24/17 17:40 21:45 05:30 WBC 5.0 RBC 4.66 Hgb 11.2 L Hct 40.5 L MCV 86.9 MCH 24.0 L MCHC 27.7 L RDW 16.8 H Plt Count 164 MPV 10.2 Gran % 84.7 H Lymph % (Auto) 11.7 L Ransom % (Auto) 3.4 Eos % (Auto) 0.0 L Baso % (Auto) 0.2 Gran # 4.26 Lymph # 0.6 L Ransom # 0.2 Eos # 0.0 Baso # 0.01 pCO2 74 H* pO2 65.0 L HCO3 42.8 H* ABG pH 7.37 ABG Total CO2 45.1 H ABG O2 Saturation 95.1 ABG O2 Content 12.3 L ABG Base Excess 15.1 H ABG Hemoglobin 9.5 L ABG Carboxyhemoglobin 2.7 H POC ABG HHb (Measured) 4.7 ABG Methemoglobin 0.8 ABG O2 Capacity 12.9 L Hgb O2 Saturation 91.8 L FiO2 30.0 Sodium 143 Potassium 4.3 Chloride 97 L Carbon Dioxide 39 H Anion Gap 11 BUN 21 Creatinine 1.2 Est GFR ( Amer) > 60 Est GFR (Non-Af Amer) 59 POC Glucose (mg/dL) 143 H Random Glucose 158 H Calcium 9.0 Phosphorus 3.6 Magnesium 2.2 Total Bilirubin 0.5 AST 19 ALT 27 Alkaline Phosphatase 72 Total Protein 7.8 Albumin 3.6 Globulin 4.1 Albumin/Globulin Ratio 0.9 L 02/24/17 02/24/17 02/24/17 06:00 07:27 11:27 WBC RBC Hgb Hct MCV MCH MCHC RDW Plt Count MPV Gran % Lymph % (Auto) Ransom % (Auto) Eos % (Auto) Baso % (Auto) Gran # Lymph # Ransom # Eos # Baso # pCO2 67 H pO2 62.0 L HCO3 38.7 H ABG pH 7.37 ABG Total CO2 40.8 H ABG O2 Saturation 93.9 L ABG O2 Content 13.9 L ABG Base Excess 11.2 H ABG Hemoglobin 10.8 L ABG Carboxyhemoglobin 2.6 H POC ABG HHb (Measured) 5.9 H ABG Methemoglobin 0.6 ABG O2 Capacity 14.8 L Hgb O2 Saturation 91.0 L FiO2 30.0 Sodium Potassium Chloride Carbon Dioxide Anion Gap BUN Creatinine Est GFR ( Amer) Est GFR (Non-Af Amer) POC Glucose (mg/dL) 132 H 199 H Random Glucose Calcium Phosphorus Magnesium Total Bilirubin AST ALT Alkaline Phosphatase Total Protein Albumin Globulin Albumin/Globulin Ratio Assessment & Plan - Assessment and Plan (Free Text) Assessment: 71 year old male admitted with hypercapniec respiratory failure, pneumonia. End stage COPD, cardiomyopahty, multiple comorbidites, see PMX. The patient is known to me from numerous previous admissions. He is alert and oriented. He is fully aware of his medical condition and prognosis. I asked the patient if would like to discuss resuscitation wishes and future care options. The patient does not like to make decisions regarding his medical care and defers all questions to his niece, Racheal. Racheal indicated to medical staff that she was interested in comfort care and no longer hospitalizing the patient in the future. I spoke with Racheal regarding discharge options for comfort care/ no more hospitalizations. Racheal stated she was interested in further discussion but did not want to do so today. She took my contact information and indicated she would call me later on today. Time spent in discussion with patient and niece regarding advance care planning , 25 minutes
[2017-02-24] MEDS: guaiFENesin 200 mg/10 ml Syrup UD PO PRN ×2 (16:06→21:00)
[2017-02-24] MEDS ORDERED: POLYETHYLENE GLYCOL 3350 17 GM/Dose PACKET PO PRN (19:54)
[2017-02-25] MEDS: MethylPREDNISolone 40 mg Vial IVP SCH ×2 (05:12→17:09)
[2017-02-25] MEDS: guaiFENesin 200 mg/10 ml Syrup UD PO PRN ×2 (05:13→10:41)
[2017-02-25 06:34] LABS: ADD MANUAL DIFF? NO
[2017-02-25 06:38] LABS: GRAN # 7.05 (1.4-6.5); GRAN % 83.8 % (50.0-68.0); HEMATOCRIT 40.1 % (42.0-52.0); LYMPH # 0.8 (1.2-3.4); LYMPH % 9.3 % (22.0-35.0); MEAN CELL VOLUME 82.9 fL (80.0-105.0); MEAN CORPUSCULAR HGB CONC 28.9 g/dl (31.0-37.0); MEAN PLATELET VOLUME 10.7 fl (7.0-11.0); MONO # 0.6 (0.1-0.6); MONO % 6.9 % (1.0-6.0); PLATELET COUNT 194 10^3/uL (120.0-450.0); RED CELL DISTRIBUTION WIDTH 16.6 % (11.5-14.5); WHITE BLOOD COUNT 8.4 10^3/ul (4.5-11.0)
--- NOTE | 2017-02-25 06:53 | CP.PCM.PN ---
<Saskia Toney - Last Filed: 02/25/17 21:37> Subjective - Date & Time of Evaluation Date of Evaluation: 02/25/17 Time of Evaluation: 09:55 - Subjective Subjective: Hospitalist progress note for Dr. Jamie Fairchild Pt s/e sitting in a chair in the ICU. TAYLOR. patient states that his SOB is improving but that the robitussin makes his cough worse. Denies any other complaints or concerns Objective - Vital Signs/Intake and Output Vital Signs (last 24 hours): Temp Pulse Resp BP Pulse Ox 98.2 F 51 L 18 126/68 96 02/25/17 05:57 02/25/17 05:57 02/25/17 05:57 02/25/17 05:57 02/25/17 05:57 Intake and Output: 02/24/17 02/25/17 18:59 06:59 Intake Total 2450 50 Output Total 1150 400 Balance 1300 -350 - Medications Medications: Current Medications Albuterol/Ipratropium (Duoneb 3 Mg/0.5 Mg (3 Ml) Ud) 3 ml IH Q2H PRN PRN Reason: Shortness of Breath Last Admin: 02/24/17 20:12 Dose: 3 ml Alprazolam (Xanax) 0.25 mg PO BID PRN; Protocol PRN Reason: Anxiety Stop: 03/02/17 18:01 Last Admin: 02/23/17 21:35 Dose: 0.25 mg Aspirin (Aspirin Chewable) 81 mg PO DAILY [facility] Last Admin: 02/24/17 10:14 Dose: 81 mg Budesonide (Pulmicort Respules) 0.5 mg IH [id number] [facility] Last Admin: 02/24/17 20:12 Dose: 0.5 mg Diltiazem HCl (Cardizem Cd) 300 mg PO DAILY [facility] Last Admin: 02/24/17 10:14 Dose: 300 mg Docusate Sodium (Colace) 100 mg PO DAILY [facility] Last Admin: 02/24/17 10:15 Dose: 100 mg Furosemide (Lasix) 40 mg IVP DAILY [facility] Guaifenesin (Robitussin) 200 mg PO Q4H PRN PRN Reason: Cough and congestion Last Admin: 02/25/17 05:13 Dose: 200 mg Heparin Sodium (Porcine) (Heparin) 5,000 units SC Q12 [facility] PRN Reason: Protocol Last Admin: 02/24/17 21:00 Dose: 5,000 units Azithromycin (Zithromax 500mg In Ns) 250 mls @ 167 mls/hr IVPB DAILY [facility] PRN Reason: Protocol Last Admin: 02/24/17 10:22 Dose: 167 mls/hr Insulin Human Lispro (Humalog Low) 0 units SC ACHS [facility] PRN Reason: Protocol Last Admin: 02/24/17 21:41 Dose: Not Given Methylprednisolone (Solu-Medrol) 40 mg IVP 2200,0600,1400 [facility] Last Admin: 02/25/17 05:12 Dose: 40 mg Non-Formulary Medication (Bosentan [Tracleer]) 125 mg PO BID [facility] Last Admin: 02/24/17 17:13 Dose: 125 mg Ondansetron HCl (Zofran Inj) 4 mg IVP Q6H PRN PRN Reason: Nausea/Vomiting Pantoprazole Sodium (Protonix Inj) 40 mg IVP DAILY [facility] Last Admin: 02/24/17 10:17 Dose: 40 mg Polyethylene Glycol (Miralax) 17 gm PO BID PRN PRN Reason: Constipation - Labs Labs: 02/25/17 06:10 02/24/17 05:30 - Constitutional Appears: Non-toxic, No Acute Distress - Head Exam Head Exam: ATRAUMATIC, NORMOCEPHALIC - Eye Exam Eye Exam: Normal appearance. absent: Conjunctival injection, Scleral icterus - ENT Exam ENT Exam: Mucous Membranes Moist, Normal Oropharynx - Respiratory Exam Respiratory Exam: Clear to Ausculation Bilateral. absent: Accessory Muscle Use , Rales, Rhonchi, Wheezes, Respiratory Distress - Cardiovascular Exam Cardiovascular Exam: RRR, +S1, +S2 - GI/Abdominal Exam GI & Abdominal Exam: Distended (moderately distended), Soft. absent: Tenderness - Extremities Exam Extremities Exam: Pedal Edema (1+ pitting edema BL feet). absent: Calf Tenderness, Tenderness - Back Exam Back Exam: NORMAL INSPECTION. absent: CVA tenderness (L), CVA tenderness (R) - Neurological Exam Neurological Exam: Alert, Awake, Oriented x3 - Psychiatric Exam Psychiatric exam: Normal Affect, Normal Mood - Skin Skin Exam: Dry, Intact, Normal Color, Warm Assessment and Plan - Assessment and Plan (Free Text) Assessment: The patient is a 71M with a PMH of severe COPD (on 4L of O2 at home), pulmonary HTN, SARBJIT, psoriasis, HTN, NIDDM, CAD (s/p stents), who is legally blind admitted to the ICU for acute hypercapneic respiratory distress due to acute COPD exacerbation and possible bilateral PNA. 1. Acute exacerbation of chronic COPD CXR 02/25: improvement, [facility] Pulmonary consult recs: continue current therapy, gentle taper of steroids, monitor LFT's, poor prognosis Plan: - Pulmonary consult--appreciate recs - duonebs Q4 tanmay, q2 PRN, IV solumedrol 40 BID, Budesonide 0.5 IH Q12, tessalon pearls, bosentan - titrate steroids per pulmonary - Continue nasal canulla as needed to keep O2 levels between 93-95%. Return to BiPAP if needed. Decrease treatment if O2 sats >95% - Continue BiPAP at night 2. Pneumonia CXR 02/25: [facility] No leukocytosis Procalcitonin <0.05 Swallow eval: no risk for aspiration Plan - pulmonary consult: appreciate recs - procalcitonin, lactic acid pending - azithromycin 3. History of pulmonary HTN. Diastolic CHF ECHO 09/2016: 56% LVEF, mild pulmonary HTN, mild/mod tricuspid regurgitation ECHO 02/24: LVEF wnl, grade 1 relaxing abnormality, moderate pulmonary HTN Plan: - Pulmonology consult--Appreciate recs - Cardiology consult--appreciate recs - Repeat ECHO today - Lasix 40mg IV Daily - continue home Bosentan 125mg PO BID - monitor strict I/O's and daily weights and keep HOB>30 degrees - OOBTC as tolerated 4. Chronic HTN hypertensive in the ICU this AM Plan: - Lasix 40IV Daily, cardizem 300mg PO daily - continue to monitor - Heart healthy, low sodium diet 5. NIDDM Mild hyperglycemia this AM Plan: - Humalog sliding scale insulin - continue to monitor - Accu-checks AC&HS - Carb consistent diet 6. History of CAD s/p coronary stents: EKG: Sinus tachycardia with intermittent PAC's, non-specific ST changes troponins neg x2 Plan: - Cardiology consult--appreciate recs - Continue to monitor, serial exams - ASA 81mg 7. Anxiety Currently not complaining of any anxiety Plan: - Restart home xanax 0.25mg BID PO 8. Constipation 2-3 days between bowel movements Plan: - Colace PO daily, miralax - Continue to monitor 9. Psoriasis skin lesions Chronic, will treat if symptomatic GI: IV protonix daily, DVT: SC Heparin Dispo:Transfer to telemetry for continued monitoring of respiratory status and cardiac/pulmonary recommendations Diet: Heart healthy, low sodium, carb controlled diet Patient seen and discussed with Dr. Jamie Toney, PGY1 <Jamie Fairchild - Last Filed: 03/02/17 09:08> Objective - Vital Signs/Intake and Output Vital Signs (last 24 hours): Temp Pulse Resp BP Pulse Ox 98.1 F 77 20 123/60 93 L 02/27/17 16:00 02/27/17 16:00 02/27/17 16:00 02/27/17 16:00 02/27/17 16:00 - Labs Labs: 02/27/17 07:30 02/27/17 07:30 Attending/Attestation - Attestation I have personally seen and examined this patient.: Yes I have fully participated in the care of the patient.: Yes I have reviewed all pertinent clinical information, including history, physical exam and plan: Yes Notes (Text): Patient seen and examined with resident.This is a 71 year old, legally blind, man with a history of severe COPD (on 4L of O2 at home), pulmonary hypertension , obstructive sleep apnea, psoriasis, HTN, NDDM and CAD (s/p stents), who presents with 2 days of worsening SOB, NIETO, wheezing and generalized malaise and found to have copd exacerbation. He was Treated with BiPAP and oxygen. Evaluated by pulmonary Dr. Payton. Patient is clinically improving. continue DuoNeb, IV Solu-Medrol. Cardiology evaluation with Dr. Loyd appreciated. Continue aspirin, Cardizem, Lipitor. PT evaluation requested. Continue CPAP at night and oxygen during daytime. Upon discharge the patient will follow up with PMD and pulmonary Dr. oliveira. Dr Jamie Fairchild
[2017-02-25 06:55] LABS: ALB/GLOB RATIO 0.9 (1.1-1.8); ALKALINE PHOSPHATASE 67 U/L (38-133); ALT/SGPT 27 U/L (7-56); AST/SGOT 27 U/L (15-59); BILIRUBIN,TOTAL 0.5 mg/dL (0.2-1.3); BLOOD UREA NITROGEN 25 mg/dL (7-21); CALCIUM 9.2 mg/dL (8.4-10.5); CARBON DIOXIDE 35 mmol/L (21-33); CHLORIDE 96 mmol/L (98-107); GFR AFRICAN-AMERICAN > 60; GLUCOSE,RANDOM 122 mg/dL (70-110); MAGNESIUM 2.2 mg/dL (1.7-2.2); POTASSIUM 4.1 mmol/L (3.6-5.0); SODIUM 140 mmol/L (132-148); TOTAL PROTEIN 7.9 g/dL (5.8-8.3)
[2017-02-25] MEDS: Insulin Lispro (humaLOG) LOW Coverage SC SCH ×4 (07:49→21:30)
[2017-02-25] MEDS: Budesonide 0.5 mg/2 ml Inhal Susp UD IH SCH ×2 (07:55→19:30)
--- NOTE | 2017-02-25 09:17 | RAD ---
HISTORY: f/u COMPARISON: 02/24/2017 FINDINGS: LUNGS: No active pulmonary disease. PLEURA: No significant pleural effusion identified, no pneumothorax apparent. CARDIOVASCULAR: Mild cardiomegaly OSSEOUS STRUCTURES: No significant abnormalities. VISUALIZED UPPER ABDOMEN: Normal. OTHER FINDINGS: None. IMPRESSION: No active disease.
[2017-02-25] MEDS: diltiaZEM 300 mg/24 Hours CD Cap PO SCH (10:42)
[2017-02-25] MEDS: BOSENTAN 125 MG PO SCH ×2 (10:44→17:09)
--- NOTE | 2017-02-25 10:44 | PN ---
DATE: 02/25/2017 The patient has remained in the intensive care unit, doing much better. He is awake and alert, oriented. Able to carry out full conversations. He is off BiPAP at the moment but uses it at night while sleeping. It is clear that he has survived another episode of respiratory failure and will be transferred to the floor. The patient feels well and in no respiratory distress. PHYSICAL EXAM: VITAL SIGNS: Stable. He is afebrile, temperature 98.2, pulse 50, respiratory rate 18, blood pressure 126/68, pulse ox 96%. His I and O's are good. HEENT: Normocephalic, atraumatic. Eyes: PERRLA. EOMs full. Conjunctivae pink. NECK: Supple. No JVD, no lymphadenopathy, no bruit or mass. CARDIOVASCULAR: Regular rhythm, S1, S2 without murmur, gallop or rub. Heart sounds are distant. CHEST: Scattered rhonchi and wheezes throughout both lung soto. EXTREMITIES: Reveal no clubbing, cyanosis or edema. NEUROLOGIC: Shows no focal findings. LYMPHATICS: Reveal no lymphadenopathy. SKIN: No rashes He remains on albuterol and ipratropium as well as Spiriva. LABORATORY DATA: Today show a white count 8000, hemoglobin 11, hematocrit 40. His sugar is 158. He is doing much better than he had previously and is feeling well. His exam is markedly improved. IMPRESSION: Status post respiratory failure, respiratory insufficiency, history of pulmonary arterial hypertension, chronic obstructive pulmonary disease exacerbation in resolution, congestive heart failure in resolution, morbid obesity, obstructive sleep apnea, coronary artery disease and pneumonitis. PLAN: We will need to repeat a chest x-ray to make sure that the pneumonitis has resolved; this has been requested. This will need to be done in the department to look for further evaluation. The portable done, 1 AP view in the intensive care unit, shows significant improvement but it is underpenetrated and I cannot tell whether there are effusions or not. It appears that there may be bilateral effusions. Once he is out of the intensive care unit later today, we will put in a request for a PA and lateral film to be done in the department. Shayan Payton MD cc: [id number] TT: 02/25/2017 10:43:17 Confirmation # [id number] Dictation # [id number] jermaine PICHARDO
[2017-02-25] MEDS: Azithromycin 500MG/NS 250ml 250 ML IVPB SCH (10:45)
[2017-02-25] MEDS: Albuterol-Ipratrop 3 mg / 0.5 (3 ml) UD IH PRN ×2 (14:09→19:31)
--- NOTE | 2017-02-25 14:12 | CON ---
DATE: 02/25/2017 REQUESTING PHYSICIAN: Dr. Fairchild. REASON FOR CONSULTATION: Nonsustained ventricular tachycardia. HISTORY OF PRESENT ILLNESS: This is a 71-year-old man with a history of severe COPD and pulmonary hypertension as well as known coronary disease who was admitted with worsening dyspnea. He uses BiPAP at home, but developed respiratory distress. He was admitted and treated with IV diuretics. He was noted to have several runs of nonsustained ventricular tachycardia of 8-10 beats on monitoring. Further evaluation was requested. He has had a productive cough as well as generalized malaise. The initial blood gas showed pH 7.29 with a pCO2 of over 100. PAST MEDICAL HISTORY: Notable for the problems mentioned above. 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 He also has a hearing disorder. He has coronary artery disease and reportedly underwent PCI in the past; details are unavailable. PAST MEDICAL HISTORY: Notable for the problems mentioned above. CURRENT MEDICATIONS: Include aspirin, Tracleer, diltiazem CD 300 mg daily, DuoNeb inhaler, subcutaneous heparin, insulin coverage, Lasix 40 mg daily, MiraLAX, Protonix, Pulmicort inhaler, Solu-Medrol 40 mg q. 8 hours, Xanax p.r.n. , and Zithromax. OBJECTIVE: GENERAL: He is a middle-aged man who appears older than his stated age. He appears chronically ill. VITAL SIGNS: His blood pressure was 146/60 with a pulse of 56 in sinus, respirations are 16. He is afebrile. NECK: No JVD. CHEST: Bilateral scattered rhonchi heard. HEART: PMI displaced laterally with a systolic murmur at the lower left sternal border. ABDOMEN: Soft, nontender, normoactive bowel sounds. EXTREMITIES: Trace leg edema. DIAGNOSTIC DATA: Potassium 4.1, BUN and creatinine are 25 and 1.0. Hemoglobin and hematocrit 11.6 and 40.1 with a white count of 8.4, platelet count is 194, 000. Recent echocardiogram revealed a dilated right atrium and right ventricle with normal LV size and systolic function. Electrocardiogram reveals sinus tachycardia with supraventricular premature beats and nonspecific ST-T abnormalities. Chest x-ray reveals patchy bilateral infiltrates, greater on the right than on the left and an effusion appears present. IMPRESSION: 1. Nonsustained ventricular tachycardia with preserved left ventricular function. 2. Severe chronic obstructive pulmonary disease with recent respiratory failure. 3. Reported coronary artery disease, details unclear. RECOMMENDATIONS: At this time, no treatment for his ventricular tachycardia appears necessary. If he has sustained runs, this will need to be reevaluated. Likely, his ventricular ectopy is related to myocardial irritability from hypoxia and metabolic derangements. Aggressive treatment of his pulmonary issues should continue. Conservative cardiac management is advised. Thank you for this consultation. I will be happy to follow him through his hospital course. Severo Caldera MD cc: [id number] TT: 02/25/2017 14:11:58 Confirmation # [id number] Dictation # [id number] MTDD
[2017-02-26] MEDS: Budesonide 0.5 mg/2 ml Inhal Susp UD IH SCH ×2 (07:14→20:48)
[2017-02-26] MEDS: Albuterol-Ipratrop 3 mg / 0.5 (3 ml) UD IH PRN ×2 (07:14→20:48)
[2017-02-26] MEDS: Insulin Lispro (humaLOG) LOW Coverage SC SCH ×3 (08:05→15:56)
[2017-02-26] MEDS: Pantoprazole 40 mg EC Tab PO SCH (08:06)
[2017-02-26] MEDS: MethylPREDNISolone 40 mg Vial IVP SCH ×2 (09:24→17:24)
[2017-02-26] MEDS: diltiaZEM 300 mg/24 Hours CD Cap PO SCH (09:25)
[2017-02-26] MEDS: Azithromycin 500MG/NS 250ml 250 ML IVPB SCH (09:27)
[2017-02-26] MEDS: BOSENTAN 125 MG PO SCH ×2 (09:30→17:24)
--- NOTE | 2017-02-26 09:52 | CP.PCM.PN ---
<Marysol Talbert - Last Filed: 02/26/17 16:18> Subjective - Date & Time of Evaluation Date of Evaluation: 02/26/17 Time of Evaluation: 16:18 - Subjective Subjective: Pt s&e. Pt transfered to floor today. JASVIR. Denies F/C/N/V/D/Cp. On BiPAP at night. Now on NC O2. Pt currently has no complaints. Objective - Vital Signs/Intake and Output Vital Signs (last 24 hours): Temp Pulse Resp BP Pulse Ox 97.9 F 71 20 155/90 H 73 L 02/26/17 08:00 02/26/17 09:25 02/26/17 08:00 02/26/17 09:25 02/26/17 04:00 Intake and Output: 02/26/17 02/26/17 06:59 18:59 Intake Total 250 Output Total 600 Balance -350 - Medications Medications: Current Medications Albuterol/Ipratropium (Duoneb 3 Mg/0.5 Mg (3 Ml) Ud) 3 ml IH Q2H PRN PRN Reason: Shortness of Breath Last Admin: 02/26/17 07:14 Dose: 3 ml Alprazolam (Xanax) 0.25 mg PO BID PRN; Protocol PRN Reason: Anxiety Stop: 03/02/17 18:01 Last Admin: 02/26/17 09:26 Dose: 0.25 mg Aspirin (Aspirin Chewable) 81 mg PO DAILY [facility] Last Admin: 02/26/17 09:25 Dose: 81 mg Benzonatate (Tessalon Perles) 100 mg PO TID PRN PRN Reason: Cough Last Admin: 02/26/17 09:25 Dose: 100 mg Budesonide (Pulmicort Respules) 0.5 mg IH [id number] [facility] Last Admin: 02/26/17 07:14 Dose: 0.5 mg Diltiazem HCl (Cardizem Cd) 300 mg PO DAILY [facility] Last Admin: 02/26/17 09:25 Dose: 300 mg Docusate Sodium (Colace) 100 mg PO DAILY [facility] Last Admin: 02/26/17 09:25 Dose: 100 mg Furosemide (Lasix) 40 mg IVP DAILY [facility] Heparin Sodium (Porcine) (Heparin) 5,000 units SC Q12 [facility] PRN Reason: Protocol Last Admin: 02/26/17 09:25 Dose: 5,000 units Azithromycin (Zithromax 500mg In Ns) 250 mls @ 167 mls/hr IVPB DAILY [facility] PRN Reason: Protocol Last Admin: 02/26/17 09:27 Dose: 167 mls/hr Insulin Human Lispro (Humalog Low) 0 units SC ACHS [facility] PRN Reason: Protocol Last Admin: 02/26/17 08:05 Dose: Not Given Methylprednisolone (Solu-Medrol) 40 mg IVP BID [facility] Last Admin: 02/26/17 09:24 Dose: 40 mg Non-Formulary Medication (Bosentan [Tracleer]) 125 mg PO BID [facility] Last Admin: 02/26/17 09:30 Dose: 125 mg Ondansetron HCl (Zofran Inj) 4 mg IVP Q6H PRN PRN Reason: Nausea/Vomiting Pantoprazole Sodium (Protonix Ec Tab) 40 mg PO ACB [facility] Last Admin: 02/26/17 08:06 Dose: 40 mg Polyethylene Glycol (Miralax) 17 gm PO BID PRN PRN Reason: Constipation Last Admin: 02/25/17 10:44 Dose: 17 gm - Labs Labs: 02/25/17 06:10 02/25/17 06:10 - Constitutional Appears: Non-toxic - Head Exam Head Exam: ATRAUMATIC, NORMAL INSPECTION, NORMOCEPHALIC - Eye Exam Additional comments: Blind - Neck Exam Neck Exam: Full ROM, Normal Inspection. absent: Lymphadenopathy - Respiratory Exam Respiratory Exam: Clear to Ausculation Bilateral, NORMAL BREATHING PATTERN. absent: Accessory Muscle Use, Respiratory Distress - Cardiovascular Exam Cardiovascular Exam: REGULAR RHYTHM, +S1, +S2. absent: Murmur - GI/Abdominal Exam GI & Abdominal Exam: Soft, Normal Bowel Sounds. absent: Distended, Tenderness Additional comments: Obese - Extremities Exam Extremities Exam: Full ROM, Normal Capillary Refill, Normal Inspection. absent : Joint Swelling, Pedal Edema - Back Exam Back Exam: NORMAL INSPECTION - Neurological Exam Neurological Exam: Alert, Awake, CN II-XII Intact, Oriented x3 - Psychiatric Exam Psychiatric exam: Normal Affect, Normal Mood - Skin Skin Exam: Dry, Intact, Warm Assessment and Plan - Assessment and Plan (Free Text) Assessment: The patient is a 71M with a PMH of severe COPD (on 4L of O2 at home), pulmonary HTN, SARBJIT, psoriasis, HTN, NIDDM, CAD (s/p stents), who is legally blind admitted to the ICU for acute hypercapneic respiratory distress due to acute COPD exacerbation and possible bilateral PNA. 1. Acute exacerbation of chronic COPD CXR 02/25: improvement, [facility]D Pulmonary consult recs: continue current therapy, gentle taper of steroids, monitor LFT's, poor prognosis - Pulmonary consult--appreciate recs: CXR, ABX, Duoneb, Brobchodilator - duonebs Q4 tanmay, q2 PRN, IV solumedrol 40 BID, Budesonide 0.5 IH Q12, tessalon pearls, bosentan - titrate steroids per pulmonary - Continue nasal canulla as needed to keep O2 levels between 93-95%. Return to BiPAP if needed. Decrease treatment if O2 sats >95% - Continue BiPAP at night 2. Pneumonia CXR 02/25: [facility]APD , No leukocytosis, Procalcitonin <0.05 Swallow eval: no risk for aspiration - pulmonary consult: appreciate recs - azithromycin 3. History of pulmonary HTN. Diastolic CHF ECHO 09/2016: 56% LVEF, mild pulmonary HTN, mild/mod tricuspid regurgitation ECHO 02/24: LVEF wnl, grade 1 relaxing abnormality, moderate pulmonary HTN - Pulmonology consult--Appreciate recs - Cardiology consult--appreciate recs - Hold Lasix 40mg IV Daily - continue home Bosentan 125mg PO BID - monitor strict I/O's and daily weights and keep HOB>30 degrees - OOBTC as tolerated 4. Chronic HTN - Hold Lasix 40IV Daily, -cardizem 300mg PO daily - Heart healthy, low sodium diet 5. NIDDM - Humalog sliding scale insulin - Accu-checks AC&HS - Carb consistent diet 6. History of CAD s/p coronary stents: EKG: Sinus tachycardia with intermittent PAC's, non-specific ST changes, troponins neg x2 - Cardiology consult--appreciate recs - ASA 81mg 7. Anxiety - Restart home xanax 0.25mg BID PO 8. Constipation: 3 days between bowel movements - Colace PO daily, miralax 9. Psoriasis skin lesions Chronic, will treat if symptomatic GI: IV protonix daily, DVT: SC Heparin Dispo:Telemetry for continued monitoring of respiratory status and cardiac/ pulmonary recommendations Diet: Heart healthy, low sodium, carb controlled diet <Rangasamy,Ajantha - Last Filed: 02/26/17 18:12> Objective - Vital Signs/Intake and Output Vital Signs (last 24 hours): Temp Pulse Resp BP Pulse Ox 97.9 F 85 18 132/67 94 L 02/26/17 13:38 02/26/17 13:38 02/26/17 13:38 02/26/17 13:38 02/26/17 13:38 Intake and Output: 02/26/17 02/26/17 06:59 18:59 Intake Total 250 730 Output Total 600 450 Balance -350 280 - Medications Medications: Current Medications Albuterol/Ipratropium (Duoneb 3 Mg/0.5 Mg (3 Ml) Ud) 3 ml IH Q2H PRN PRN Reason: Shortness of Breath Last Admin: 02/26/17 07:14 Dose: 3 ml Alprazolam (Xanax) 0.25 mg PO BID PRN; Protocol PRN Reason: Anxiety Stop: 03/02/17 18:01 Last Admin: 02/26/17 09:26 Dose: 0.25 mg Aspirin (Aspirin Chewable) 81 mg PO DAILY [facility] Last Admin: 02/26/17 09:25 Dose: 81 mg Benzonatate (Tessalon Perles) 100 mg PO TID PRN PRN Reason: Cough Last Admin: 02/26/17 09:25 Dose: 100 mg Budesonide (Pulmicort Respules) 0.5 mg IH [id number] [facility] Last Admin: 02/26/17 07:14 Dose: 0.5 mg Diltiazem HCl (Cardizem Cd) 300 mg PO DAILY [facility] Last Admin: 02/26/17 09:25 Dose: 300 mg Docusate Sodium (Colace) 100 mg PO DAILY [facility] Last Admin: 02/26/17 09:25 Dose: 100 mg Furosemide (Lasix) 40 mg IVP DAILY [facility] Heparin Sodium (Porcine) (Heparin) 5,000 units SC Q12 [facility] PRN Reason: Protocol Last Admin: 02/26/17 09:25 Dose: 5,000 units Azithromycin (Zithromax 500mg In Ns) 250 mls @ 167 mls/hr IVPB DAILY [facility] PRN Reason: Protocol Last Admin: 02/26/17 09:27 Dose: 167 mls/hr Insulin Human Lispro (Humalog Low) 0 units SC ACHS [facility] PRN Reason: Protocol Last Admin: 02/26/17 15:56 Dose: Not Given Methylprednisolone (Solu-Medrol) 40 mg IVP BID [facility] Last Admin: 02/26/17 17:24 Dose: 40 mg Non-Formulary Medication (Bosentan [Tracleer]) 125 mg PO BID [facility] Last Admin: 02/26/17 17:24 Dose: 125 mg Ondansetron HCl (Zofran Inj) 4 mg IVP Q6H PRN PRN Reason: Nausea/Vomiting Pantoprazole Sodium (Protonix Ec Tab) 40 mg PO ACB [facility] Last Admin: 02/26/17 08:06 Dose: 40 mg Polyethylene Glycol (Miralax) 17 gm PO BID PRN PRN Reason: Constipation Last Admin: 02/25/17 10:44 Dose: 17 gm - Labs Labs: 02/25/17 06:10 02/25/17 06:10 Assessment and Plan - Assessment and Plan (Free Text) Assessment: attending note; Patient seen and examined with resident. Patient is a 71 year old, legally blind, man with a history of severe COPD (on 4L of O2 at home), pulmonary hypertension, obstructive sleep apnea, psoriasis, HTN, NDDM and CAD (s/p stents), who presents with 2 days of worsening SOB, NIETO, wheezing and generalized malaise. Treated with BiPAP and oxygen. Evaluated by pulmonary Dr. Payton. Patient is clinically improving. continue DuoNeb, IV Solu-Medrol. [facility] Cardiology evaluation with Dr. Loyd appreciated.continue aspirin, Cardizem, Lipitor. PT evaluation requested. Out of bed to chair as tolerated. Continue CPAP at night and oxygen during daytime. Upon discharge the patient will follow up with PMD and pulmonary Dr. oliveira. Attending/Attestation - Attestation I have personally seen and examined this patient.: Yes I have fully participated in the care of the patient.: Yes I have reviewed all pertinent clinical information, including history, physical exam and plan: Yes
--- NOTE | 2017-02-26 10:00 | PN ---
DATE: 02/26/2017 LOCATION: ICU 128, bed 6. SUBJECTIVE: The patient is markedly better. Has not yet been transferred out of the intensive care unit. He is awake and alert, oriented. He is able to carry out a full conversation. The patient is off CPAP during the day but using the CPAP at night while sleeping. He is doing much better. He ne eds to be out of the intensive care unit. Rehabilitation is essential so that he can leave the [facility] in a rapid manner. His status is significantly more stable at this point in time. There is real ly no etiology for his deterioration. We still wonder whether it is psychologic at its inception, bu t will continue to treat him as need be. PHYSICAL EXAMINATION: VITAL SIGNS: Stable. He is afebrile, heart rate 60, respiratory rate 18, blood pressure 120/70, O2 sat 96% on supplemental oxygen. NECK: Supple. No JVD, no lymphadenopathy. LUNGS: Clear to percussion and auscultation. Prolonged expiratory phase. HEART: Regular rhythm, S1, S2, soft systolic ejection murmur at the lower left sternal border. ABDOMEN: Soft, obese, bowel sounds normoactive. EXTREMITIES: Reveal no clubbing, cyanosis or edema. There is no Homans sign. NEUROLOGIC: Awake, alert, oriented. Mental status normal. Babinski downgoing. Deep tendon reflexe s normal. LYMPHATICS: Lymphadenopathy is not present. The supraclavicular, cervical, inguinal and axillary ar eas are free of nodules. LABORATORY DATA: Today, his x-ray shows some small improvement. IMPRESSION: The patient continues to improve slowly. He has had a very rapid recovery from the acut e event, the etiology of which still remains unclear. DIAGNOSES: Include: 1. Pulmonary arterial hypertension. 2. Respiratory failure. 3. Respiratory insufficiency. 4. Chronic obstructive pulmonary disease. 5. Congestive heart failure. 6. Morbid obesity. 7. Obstructive sleep apnea. 8. Coronary artery disease. 9. Pneumonitis. PLAN: Continue antibiotics and follow up the pneumonia via chest x-ray. Continue inhaled bronchodil ators and corticosteroids. I have discussed clinical status of the patient with his sister, Racheal, on several occasions. I am c oncerned about the multiple hospitalizations that the patient has had over the last 6 months. He eit her needs better attention at home or needs to be placed in a situation where his medical care can be observed more carefully. These frequent exacerbations and admissions with frequent intubations is n ot healthy for this patient. With the appropriate care, we should be able to help him to improve in general, and we will follow closely in the interim to see if he will improve. Shayan Payton MD cc: [id number] TT: 02/26/2017 10:00:05 Confirmation # [id number] Dictation # [id number] mn
--- NOTE | 2017-02-26 16:18 | RAD ---
HISTORY: pneumonia COMPARISON: 02/25/2017 TECHNIQUE: Chest PA and lateral FINDINGS: LUNGS: There is a small infiltrate probably at the right lung base seen on the lateral film. This is located posteriorly at the costophrenic sulcus. There may also be a component of pleural fluid PLEURA: No significant pleural effusion identified. No pneumothorax apparent. CARDIOVASCULAR: Mild to moderate cardiomegaly OSSEOUS STRUCTURES: No significant abnormalities. VISUALIZED UPPER ABDOMEN: Normal. OTHER FINDINGS: None. IMPRESSION: There is a small infiltrate probably at the right lung base seen on the lateral film. This is located posteriorly at the costophrenic sulcus. There may also be a component of pleural fluid
--- NOTE | 2017-02-27 06:19 | CP.PCM.PN ---
<Saskia Toney - Last Filed: 02/27/17 18:17> Subjective - Date & Time of Evaluation Date of Evaluation: 02/27/17 Time of Evaluation: 08:15 - Subjective Subjective: Hospitalist progress note for Dr. Reyes Pt s/e sitting in chair at bedside this AM. NAEO. Patient states that he has a persistent cough that is improving. Denies chest pain, SOB, fevers, chills, nausea, vomiting, abdominal pain, back pain, and pedal edema. States that he would be more comfortable having further PT in the TCU at the hospital than going home with home therapy visits. Objective - Vital Signs/Intake and Output Vital Signs (last 24 hours): Temp Pulse Resp BP Pulse Ox 97.9 F 85 18 132/67 94 L 02/26/17 13:38 02/26/17 13:38 02/26/17 13:38 02/26/17 13:38 02/26/17 13:38 Intake and Output: 02/26/17 02/27/17 18:59 06:59 Intake Total 730 120 Output Total 450 200 Balance 280 -80 - Medications Medications: Current Medications Albuterol/Ipratropium (Duoneb 3 Mg/0.5 Mg (3 Ml) Ud) 3 ml IH Q2H PRN PRN Reason: Shortness of Breath Last Admin: 02/26/17 20:48 Dose: 3 ml Alprazolam (Xanax) 0.25 mg PO BID PRN; Protocol PRN Reason: Anxiety Stop: 03/02/17 18:01 Last Admin: 02/26/17 09:26 Dose: 0.25 mg Aspirin (Aspirin Chewable) 81 mg PO DAILY [facility] Last Admin: 02/26/17 09:25 Dose: 81 mg Benzonatate (Tessalon Perles) 100 mg PO TID PRN PRN Reason: Cough Last Admin: 02/26/17 09:25 Dose: 100 mg Budesonide (Pulmicort Respules) 0.5 mg IH [id number] [facility] Last Admin: 02/26/17 20:48 Dose: 0.5 mg Diltiazem HCl (Cardizem Cd) 300 mg PO DAILY [facility] Last Admin: 02/26/17 09:25 Dose: 300 mg Docusate Sodium (Colace) 100 mg PO DAILY [facility] Last Admin: 02/26/17 09:25 Dose: 100 mg Furosemide (Lasix) 40 mg IVP DAILY [facility] Heparin Sodium (Porcine) (Heparin) 5,000 units SC Q12 [facility] PRN Reason: Protocol Last Admin: 02/26/17 22:07 Dose: 5,000 units Azithromycin (Zithromax 500mg In Ns) 250 mls @ 167 mls/hr IVPB DAILY [facility] PRN Reason: Protocol Last Admin: 02/26/17 09:27 Dose: 167 mls/hr Insulin Human Lispro (Humalog Low) 0 units SC ACHS [facility] PRN Reason: Protocol Last Admin: 02/26/17 15:56 Dose: Not Given Methylprednisolone (Solu-Medrol) 40 mg IVP BID [facility] Last Admin: 02/26/17 17:24 Dose: 40 mg Non-Formulary Medication (Bosentan [Tracleer]) 125 mg PO BID [facility] Last Admin: 02/26/17 17:24 Dose: 125 mg Ondansetron HCl (Zofran Inj) 4 mg IVP Q6H PRN PRN Reason: Nausea/Vomiting Pantoprazole Sodium (Protonix Ec Tab) 40 mg PO ACB [facility] Last Admin: 02/26/17 08:06 Dose: 40 mg Polyethylene Glycol (Miralax) 17 gm PO BID PRN PRN Reason: Constipation Last Admin: 02/25/17 10:44 Dose: 17 gm - Labs Labs: 02/25/17 06:10 02/25/17 06:10 - Constitutional Appears: Non-toxic, No Acute Distress - Head Exam Head Exam: ATRAUMATIC, NORMOCEPHALIC - Eye Exam Eye Exam: Normal appearance. absent: Conjunctival injection, Scleral icterus - ENT Exam ENT Exam: Mucous Membranes Moist, Normal Oropharynx - Respiratory Exam Respiratory Exam: Clear to Ausculation Bilateral, NORMAL BREATHING PATTERN. absent: Accessory Muscle Use, Respiratory Distress - Cardiovascular Exam Cardiovascular Exam: RRR, +S1, +S2 - GI/Abdominal Exam GI & Abdominal Exam: Soft. absent: Distended, Tenderness - Extremities Exam Extremities Exam: Pedal Edema (1+ pitting Edema BL). absent: Calf Tenderness, Tenderness - Back Exam Back Exam: NORMAL INSPECTION. absent: CVA tenderness (L), CVA tenderness (R) - Neurological Exam Neurological Exam: Alert, Awake, Oriented x3 - Psychiatric Exam Psychiatric exam: Normal Affect, Normal Mood - Skin Skin Exam: Dry, Normal Color, Warm Additional comments: numerous diffuse psoriatic plaques Assessment and Plan - Assessment and Plan (Free Text) Assessment: The patient is a 71M with a PMH of severe COPD (on 4L of O2 at home), pulmonary HTN, SARBJIT, psoriasis, HTN, NIDDM, CAD (s/p stents), who is legally blind admitted to the ICU for acute hypercapneic respiratory distress due to acute COPD exacerbation and possible bilateral PNA. 1. Acute exacerbation of chronic COPD CXR 02/25: improvement, [facility] Pulmonary consult recs: continue current therapy, gentle taper of steroids, monitor LFT's, poor prognosis - Pulmonary consult--appreciate recs: CXR, ABX, Duoneb, Bronchodilator, outpatient daliresp - duonebs Q4 tanmay, q2 PRN, IV solumedrol 20 BID, Budesonide 0.5 IH Q12, tessalon pearls, bosentan - titrate steroids per pulmonary - Continue nasal canulla as needed to keep O2 levels between 93-95%. Return to BiPAP if needed. Decrease treatment if O2 sats >95% - Continue BiPAP at night 2. Pneumonia CXR 02/25: NAPD , No leukocytosis, Procalcitonin <0.05 Swallow eval: no risk for aspiration - pulmonary consult: appreciate recs - azithromycin day 4 3. History of pulmonary HTN. Diastolic CHF ECHO 09/2016: 56% LVEF, mild pulmonary HTN, mild/mod tricuspid regurgitation ECHO 02/24: LVEF wnl, grade 1 relaxing abnormality, moderate pulmonary HTN - Pulmonology consult--Appreciate recs - Cardiology consult--appreciate recs - Lasix 40mg IV Daily - continue home Bosentan 125mg PO BID - monitor strict I/O's and daily weights and keep HOB>30 degrees - OOBTC as tolerated 4. Chronic HTN - Hold Lasix 40IV Daily, - cardizem 300mg PO daily - Heart healthy, low sodium diet - lasix 40 IV daily 5. NIDDM - Humalog sliding scale insulin - Accu-checks AC&HS - Carb consistent diet 6. History of CAD s/p coronary stents: EKG: Sinus tachycardia with intermittent PAC's, non-specific ST changes, troponins neg x2 - Cardiology consult--appreciate recs - ASA 81mg 7. Anxiety - Restart home xanax 0.25mg BID PO 8. Constipation: 3 days between bowel movements - Colace PO daily, miralax 9. Psoriasis skin lesions Chronic, will treat if symptomatic GI: IV protonix daily, DVT: SC Heparin Dispo:Telemetry for continued monitoring of respiratory status. Eventual DC to home with home physical therapy visits vs. TCU Diet: Heart healthy, low sodium, carb controlled diet Pt seen and discussed with Dr. Amy Toney, PGY1 <Andriy Reyes - Last Filed: 02/28/17 09:55> Objective - Vital Signs/Intake and Output Vital Signs (last 24 hours): Temp Pulse Resp BP Pulse Ox 98.1 F 77 20 123/60 93 L 02/27/17 16:00 02/27/17 16:00 02/27/17 16:00 02/27/17 16:00 02/27/17 16:00 - Labs Labs: 02/27/17 07:30 02/27/17 07:30 Assessment and Plan - Assessment and Plan (Free Text) Assessment: attending note; Patient seen and examined with resident. Patient is a 71 year old, legally blind, man with a history of severe COPD (on 4L of O2 at home), pulmonary hypertension, obstructive sleep apnea, psoriasis, HTN, NDDM and CAD (s/p stents), who presents with 2 days of worsening SOB, NIETO, wheezing and generalized malaise. Treated with BiPAP and oxygen. Evaluated by pulmonary Dr. Payton. Patient is clinically improving. continue DuoNeb, IV Solu-Medrol. Transferred to [facility] floor. Cardiology evaluation with Dr. Loyd appreciated.continue aspirin, Cardizem, Lipitor. PT evaluation appreciated. Continue CPAP at night and oxygen during daytime. Upon discharge the patient will follow up with PMD and pulmonary Dr. oliveira. Patient to TCU once bed is available. Case discussed with social group worker and embedded case manager in detail. Attending/Attestation - Attestation I have personally seen and examined this patient.: Yes I have fully participated in the care of the patient.: Yes I have reviewed all pertinent clinical information, including history, physical exam and plan: Yes
[2017-02-27] MEDS: Albuterol-Ipratrop 3 mg / 0.5 (3 ml) UD IH PRN (07:21)
[2017-02-27] MEDS: Budesonide 0.5 mg/2 ml Inhal Susp UD IH SCH (07:22)
[2017-02-27 07:45] LABS: ADD MANUAL DIFF? NO
[2017-02-27 07:49] VITALS: RESP 20
[2017-02-27 07:49] LABS: GRAN # 5.85 (1.4-6.5); HEMATOCRIT 39.8 % (42.0-52.0); LYMPH # 1.3 (1.2-3.4); LYMPH % 16.8 % (22.0-35.0); MEAN CELL VOLUME 81.9 fL (80.0-105.0); MEAN CORPUSCULAR HEMOGLOBIN 24.1 pg (25.0-35.0); MEAN CORPUSCULAR HGB CONC 29.4 g/dl (31.0-37.0); MEAN PLATELET VOLUME 10.5 fl (7.0-11.0); MONO # 0.7 (0.1-0.6); MONO % 9.2 % (1.0-6.0); PLATELET COUNT 161 10^3/uL (120.0-450.0); RED CELL DISTRIBUTION WIDTH 16.6 % (11.5-14.5); WHITE BLOOD COUNT 7.9 10^3/ul (4.5-11.0)
[2017-02-27 08:07] LABS: BLOOD UREA NITROGEN 25 mg/dL (7-21); CALCIUM 8.6 mg/dL (8.4-10.5); CARBON DIOXIDE 36 mmol/L (21-33); CHLORIDE 99 mmol/L (95-110); GFR AFRICAN-AMERICAN > 60; GLUCOSE,RANDOM 101 mg/dL (70-110); POTASSIUM 4.7 mmol/L (3.6-5.0); SODIUM 141 mmol/L (132-148)
[2017-02-27] MEDS: Pantoprazole 40 mg EC Tab PO SCH (08:30)
[2017-02-27] MEDS: Insulin Lispro (humaLOG) LOW Coverage SC SCH ×3 (08:30→17:31)
[2017-02-27] MEDS: diltiaZEM 300 mg/24 Hours CD Cap PO SCH (09:05)
[2017-02-27] MEDS: MethylPREDNISolone 40 mg Vial IVP SCH ×2 (09:05→17:36)
[2017-02-27] MEDS: Azithromycin 500MG/NS 250ml 250 ML IVPB SCH (09:09)
[2017-02-27] MEDS: BOSENTAN 125 MG PO SCH ×2 (09:33→17:35)
--- NOTE | 2017-02-27 09:51 | PN ---
DATE: 02/27/2017 SUBJECTIVE: The patient has been transferred to the med/surgical floor. He is sitting up in a chair . He has oxygen on, but feels very much better. There is no respiratory distress sitting in bed, bu t on minimal movement he does have significant problems. He is awake and alert. I have discussed his home status with him. He lives with his niece, Racheal, and she is able to care f or most of his medical needs. He does not feel that he needs a home nurse's help. He is anxious to be discharged from the hospital as he is feeling much better, having sustained a tremendous insult to his body having required ____ surgery with respiratory failure. PHYSICAL EXAMINATION: VITAL SIGNS: Stable. Blood pressure 120/60, respiratory rate 16, heart rate 76, afebrile. NECK: Supple. No JVD, no lymphadenopathy, no bruit. LUNGS: Clear, distant breath sounds with prolonged expiratory phase, but no rales, rhonchi or wheeze s appreciated. HEART: Regular rhythm, S1, S2. Soft systolic ejection murmur at the lower left sternal border persi sts. ABDOMEN: Remains obese with normoactive bowel sounds. No organomegaly or mass. EXTREMITIES: Reveal no clubbing, cyanosis or edema. There is no Homans sign. NEUROLOGIC: No focal findings. The patient is doing quite well. LYMPHATICS: Lymphadenopathy is not present as before. Last chest x-ray done 36 hours ago shows improvement of the infiltrates. Pulmonary vascular congesti on has resolved. Small pulmonary infiltrate persists. CLINICAL IMPRESSION: 1. Respiratory failure. 2. Respiratory insufficiency. 3. Chronic obstructive pulmonary disease. 4. Congestive heart failure. 5. Bronchopneumonia. 6. Morbid obesity. 7. Obstructive sleep apnea. 8. Coronary artery disease. PLAN: 1. Continue antibiotics till complete resolution of the pulmonary vascular congestion and pneumonic infiltrates. 2. Additionally, to continue vigorous bronchodilators and corticosteroids here and at home. 3. Please consider the use of Daliresp to help him and possibly keep him out of the hospital if the problems continue to be pulmonary in nature. 4. Will discuss with you and follow closely. Shayan Payton MD cc: [id number] TT: 02/27/2017 09:50:42 Confirmation # [id number] Dictation # [id number]
--- NOTE | 2017-02-27 11:08 | CP.PCM.PN ---
Subjective - Date & Time of Evaluation Date of Evaluation: 02/27/17 Time of Evaluation: 11:00 - Subjective Subjective: Alert, less dyspneic today. Participating in physical therapy Objective - Vital Signs/Intake and Output Vital Signs (last 24 hours): Temp Pulse Resp BP Pulse Ox 98.4 F 67 20 143/86 95 02/27/17 07:30 02/27/17 09:05 02/27/17 07:30 02/27/17 09:05 02/27/17 07:30 Intake and Output: 02/27/17 02/27/17 06:59 18:59 Intake Total 120 Output Total 200 Balance -80 - Medications Medications: Current Medications Albuterol/Ipratropium (Duoneb 3 Mg/0.5 Mg (3 Ml) Ud) 3 ml IH Q2H PRN PRN Reason: Shortness of Breath Last Admin: 02/27/17 07:21 Dose: 3 ml Alprazolam (Xanax) 0.25 mg PO BID PRN; Protocol PRN Reason: Anxiety Stop: 03/02/17 18:01 Last Admin: 02/26/17 09:26 Dose: 0.25 mg Aspirin (Aspirin Chewable) 81 mg PO DAILY [facility] Last Admin: 02/27/17 09:06 Dose: 81 mg Benzonatate (Tessalon Perles) 100 mg PO TID PRN PRN Reason: Cough Last Admin: 02/26/17 09:25 Dose: 100 mg Budesonide (Pulmicort Respules) 0.5 mg IH [id number] [facility] Last Admin: 02/27/17 07:22 Dose: 0.5 mg Diltiazem HCl (Cardizem Cd) 300 mg PO DAILY [facility] Last Admin: 02/27/17 09:05 Dose: 300 mg Docusate Sodium (Colace) 100 mg PO DAILY [facility] Last Admin: 02/27/17 09:06 Dose: 100 mg Furosemide (Lasix) 40 mg IVP DAILY [facility] Heparin Sodium (Porcine) (Heparin) 5,000 units SC Q12 [place] PRN Reason: Protocol Last Admin: 02/27/17 09:06 Dose: 5,000 units Azithromycin (Zithromax 500mg In Ns) 250 mls @ 167 mls/hr IVPB DAILY [place] PRN Reason: Protocol Last Admin: 02/27/17 09:09 Dose: 167 mls/hr Insulin Human Lispro (Humalog Low) 0 units SC ACHS [facility] PRN Reason: Protocol Last Admin: 02/27/17 08:30 Dose: Not Given Methylprednisolone (Solu-Medrol) 20 mg IVP BID [facility] Last Admin: 02/27/17 09:05 Dose: 20 mg Non-Formulary Medication (Bosentan [Tracleer]) 125 mg PO BID [facility] Last Admin: 02/27/17 09:33 Dose: 125 mg Ondansetron HCl (Zofran Inj) 4 mg IVP Q6H PRN PRN Reason: Nausea/Vomiting Pantoprazole Sodium (Protonix Ec Tab) 40 mg PO ACB [facility] Last Admin: 02/27/17 08:30 Dose: 40 mg Polyethylene Glycol (Miralax) 17 gm PO BID PRN PRN Reason: Constipation Last Admin: 02/25/17 10:44 Dose: 17 gm - Labs Labs: 02/27/17 07:30 02/27/17 07:30 - Constitutional Appears: No Acute Distress, Chronically Ill - Head Exam Head Exam: NORMOCEPHALIC - Eye Exam Eye Exam: PERRL - ENT Exam ENT Exam: Mucous Membranes Moist - Neck Exam Neck Exam: Normal Inspection - Respiratory Exam Respiratory Exam: Decreased Breath Sounds, Rhonchi - Cardiovascular Exam Cardiovascular Exam: REGULAR RHYTHM, +S1, +S2 - GI/Abdominal Exam GI & Abdominal Exam: Soft, Normal Bowel Sounds - Extremities Exam Extremities Exam: Pedal Edema - Back Exam Back Exam: NORMAL INSPECTION - Neurological Exam Neurological Exam: Altered, Oriented x3 - Skin Skin Exam: Dry, Warm Additional comments: psoriatic patches on extremities Assessment and Plan - Assessment and Plan (Free Text) Assessment: 71 year old male end stage COPD,emphysema,respiratory failure, O2 dependent,CHF, bronchopneumonia. I spoke with patient regarding resuscitation status. He affirms he does not want to be intubated . When asked of he wanted CPR he said he wasn't sure. Benefits and burdens of CPR explained. Also spoke about the importance of enacting a POLST. Patient wants to discuss with his niece, Racheal before committing to DNR and POLST. I spoke at length with medical POLuna Springer via phone. We discussed patient's medical status and prognosis. Niece and I spoke about the possibility of transitioning patient "to do not hospitalize /comfort care". Reneeece expressed this as being difficult decision because her uncle has told her he is not ready for this. Reneeece feels conflicted as she realizes at some point patient's condition will deteriorate dramatically. She expressed, at that point she will consider comfort care. Morgan states that her uncle is DNR/DNI and she will clarify this with him. I explained the purpose of POLST and explained the importance of enacting these orders. Morgan states she understands and will encourage her uncle to complete POLST. Time spent in discussion with patient and niece regarding goals of care,advance care planning 30 minutes Plan: Will assist with advance care planning
[2017-02-27 16:32] VITALS: BP 123/60; PULSE 77; TEMP 98.1; O2SAT 93
--- NOTE | 2017-02-28 16:31 | CP.PCM.DIS ---
<Saskia Toney - Last Filed: 03/01/17 20:18> Provider - Provider Date of Admission: 02/22/17 22:07 Attending physician: Andriy Reyes MD Primary care physician: Jose C Ambrocio MD Time Spent in preparation of Discharge (in minutes): 40 Diagnosis - Discharge Diagnosis (1) Altered mental status Status: c (2) CHF (congestive heart failure) Status: c (3) COPD exacerbation Status: c (4) Hypercapnic respiratory failure Status: c (5) Weakness generalized Status: c (6) Constipation Status: c Hospital Course - Lab Results Lab Results: Micro Results 02/22/17 23:00 Nose MRSA Culture (Admit) - Final MRSA NOT DETECTED 02/22/17 22:40 Urine Urine Culture - Final No Growth (<1,000 CFU/ML) Most Recent Lab Values WBC 7.9 10^3/ul (4.5-11.0) 02/27/17 07:30 RBC 4.86 10^6/uL (3.5-6.1) 02/27/17 07:30 Hgb 11.7 gm/dL (14.0-18.0) L 02/27/17 07:30 Hct 39.8 % (42.0-52.0) L 02/27/17 07:30 MCV 81.9 fL (80.0-105.0) 02/27/17 07:30 MCH 24.1 pg (25.0-35.0) L 02/27/17 07:30 MCHC 29.4 g/dl (31.0-37.0) L 02/27/17 07:30 RDW 16.6 % (11.5-14.5) H 02/27/17 07:30 Plt Count 161 10^3/uL (120.0-450.0) 02/27/17 07:30 MPV 10.5 fl (7.0-11.0) 02/27/17 07:30 Gran % 74.0 % (50.0-68.0) H 02/27/17 07:30 Lymph % (Auto) 16.8 % (22.0-35.0) L 02/27/17 07:30 [place] % (Auto) 9.2 % (1.0-6.0) H 02/27/17 07:30 Eos % (Auto) 0.0 % (1.5-5.0) L 02/27/17 07:30 Baso % (Auto) 0.0 % (0.0-3.0) 02/27/17 07:30 Gran # 5.85 (1.4-6.5) 02/27/17 07:30 Lymph # 1.3 (1.2-3.4) 02/27/17 07:30 [place] # 0.7 (0.1-0.6) H 02/27/17 07:30 Eos # 0.0 (0.0-0.7) 02/27/17 07:30 Baso # 0.00 K/mm3 (0.0-2.0) 02/27/17 07:30 pCO2 67 mm/Hg (35-45) H 02/24/17 06:00 pO2 62.0 mm/Hg (80-100) L 02/24/17 06:00 HCO3 38.7 mmol/L (21-28) H 02/24/17 06:00 ABG pH 7.37 (7.35-7.45) 02/24/17 06:00 ABG Total CO2 40.8 mmol.L (22-28) H 02/24/17 06:00 ABG O2 Saturation 93.9 % (95-98) L 02/24/17 06:00 ABG O2 Content 13.9 ML/dl (15-23) L 02/24/17 06:00 ABG Base Excess 11.2 mmol/L (-2.0-3.0) H 02/24/17 06:00 ABG Hemoglobin 10.8 g/dL (11.7-17.4) L 02/24/17 06:00 ABG Carboxyhemoglobin 2.6 % (0.5-1.5) H 02/24/17 06:00 POC ABG HHb (Measured) 5.9 % (0-5) H 02/24/17 06:00 ABG Methemoglobin 0.6 % (0.0-3.0) 02/24/17 06:00 ABG O2 Capacity 14.8 mL/dl (16-24) L 02/24/17 06:00 VBG pH 7.52 (7.32-7.43) H 02/22/17 21:00 VBG pCO2 59.0 (40-60) 02/22/17 21:00 VBG HCO3 48.2 mmol/l (21-28) H 02/22/17 21:00 VBG Total CO2 50.0 mmol.L (22-28) H 02/22/17 21:00 VBG O2 Sat (Calc) 99.6 % (40-65) H 02/22/17 21:00 VBG Base Excess 21.6 mmol/L (0.0-2.0) H 02/22/17 21:00 VBG Potassium 4.6 mmol/L (3.6-5.2) 02/22/17 21:00 Hgb O2 Saturation 91.0 % (95.0-98.0) L 02/24/17 06:00 Sodium 139.0 mmol/L (132-148) 02/22/17 21:00 Chloride 101.0 mmol/L (98-107) 02/22/17 21:00 Glucose 127 mg/dl (75-110) H 02/22/17 21:00 Lactate 0.7 mmol/L (0.7-2.1) 02/22/17 21:00 FiO2 30.0 % 02/24/17 06:00 Sodium 141 mmol/L (132-148) 02/27/17 07:30 Potassium 4.7 mmol/L (3.6-5.0) 02/27/17 07:30 Chloride 99 mmol/L (95-110) 02/27/17 07:30 Carbon Dioxide 36 mmol/L (21-33) H 02/27/17 07:30 Anion Gap 11 (10-20) 02/27/17 07:30 BUN 25 mg/dL (7-21) H 02/27/17 07:30 Creatinine 0.9 mg/dL (0.5-1.4) 02/27/17 07:30 Est GFR ( Amer) > 60 02/27/17 07:30 Est GFR (Non-Af Amer) > 60 02/27/17 07:30 POC Glucose (mg/dL) 174 mg/dL (65-110) H 02/27/17 16:05 Random Glucose 101 mg/dL (70-110) 02/27/17 07:30 Lactic Acid 1.0 mmol/L (0.7-2.1) 02/23/17 01:50 Calcium 8.6 mg/dL (8.4-10.5) 02/27/17 07:30 Phosphorus 3.0 mg/dL (2.5-4.5) 02/25/17 06:10 Magnesium 2.2 mg/dL (1.7-2.2) 02/25/17 06:10 Total Bilirubin 0.5 mg/dL (0.2-1.3) 02/25/17 06:10 AST 27 U/L (15-59) 02/25/17 06:10 ALT 27 U/L (7-56) 02/25/17 06:10 Alkaline Phosphatase 67 U/L (38-133) 02/25/17 06:10 Troponin I < 0.01 ng/mL 02/22/17 20:45 NT-Pro-B Natriuret Pep 252 pg/mL (0-450) 02/22/17 20:45 Total Protein 7.9 g/dL (5.8-8.3) 02/25/17 06:10 Albumin 3.8 g/dL (3.0-4.8) 02/25/17 06:10 Globulin 4.1 gm/dL 02/25/17 06:10 Albumin/Globulin Ratio 0.9 (1.1-1.8) L 02/25/17 06:10 Procalcitonin < 0.05 NG/ML (0.19-0.49) L 02/22/17 20:45 Venous Blood Potassium 4.6 mmol/L (3.6-5.2) 02/22/17 21:00 Urine Color Straw (YELLOW) 02/22/17 22:40 Urine Appearance Clear (CLEAR) 02/22/17 22:40 Urine pH 7.0 (4.7-8.0) 02/22/17 22:40 Ur Specific [place] 1.015 (1.005-1.035) 02/22/17 22:40 Urine Protein Negative mg/dL (<30 mg/dL) 02/22/17 22:40 Urine Glucose (UA) Negative mg/dL (NEGATIVE) 02/22/17 22:40 Urine Ketones Negative mg/dL (NEGATIVE) 02/22/17 22:40 Urine Blood Small (NEGATIVE) H 02/22/17 22:40 Urine Nitrate Negative (NEGATIVE) 02/22/17 22:40 Urine Bilirubin Negative (NEGATIVE) 02/22/17 22:40 Urine Urobilinogen 0.2 E.U./dL (<1 E.U./dL) 02/22/17 22:40 Ur Leukocyte Esterase Negative Kristina/uL (NEGATIVE) 02/22/17 22:40 Urine RBC 0 - 2 /hpf (0-2) 02/22/17 22:40 Urine WBC 0 - 2 /hpf (0-6) 02/22/17 22:40 Ur Epithelial Cells 0 - 2 /hpf (0-5) 02/22/17 22:40 Urine Bacteria Trace (NEG) 02/22/17 22:40 Influenza Typ A,B (EIA) Negative for flu a/b (NEGATIVE) 02/22/17 22:40 - Hospital Course Hospital Course: Patient is a 71 y/o M with PMH including COPD, CHF, tobacco abuse, lung mass of unknown origin, CAD s/p stents, NIDDM, HTN, and SARBJIT who was brought to the ED by family for 2 days of worsening productive cough, general weakness, and AMS. Patient was found to be in respiratory distress in the ED and lab work revealed hypercapneic respiratory distress and was started on BiPAP therapy as well as duonebs, solumedrol IV, IV cefepime and azythromycin. CXR revealed BL opacities and possible R persistent atelectasis vs pleural effusion and he was admitted to the ICU. Pulmonology and cardiology were consulted. Patient improved overnight on the BiPAP. Echo showed LVEF 54%, grade I abnormal relaxatin pattern , and mildly dilated Right ventricle. Over the hospital course patient's clinical state improved as confirmed on CXR and a slow taper of his steroids was begun. Patient was able to withstand O2 via nasal canulla during the day without becoming hypoxic and used BiPAP at night without issue. PT evaluated patient and recommended discharge to home with home visits, but patient requested transfer to the TCU unit for further therapy. All the consulted physicians approved of this plan as well as the patient and the patient's family. So patient was discharged to the TCU where further treatment of his resolving COPD exacerbation, PT, and conversations regarding end of life decisions could be carried out. For full hospital course please refer to the full chart Discharge Exam - Head Exam Head Exam: ATRAUMATIC, NORMOCEPHALIC - Eye Exam Eye Exam: Normal appearance. absent: Conjunctival injection, Scleral icterus - ENT Exam ENT Exam: Mucous Membranes Moist, Normal Oropharynx - Respiratory Exam Respiratory Exam: Clear to PA & Lateral, NORMAL BREATHING PATTERN. absent: Accessory Muscle Use - Cardiovascular Exam Cardiovascular Exam: RRR, +S1, +S2 - GI/Abdominal Exam GI & Abdominal Exam: Soft. absent: Distended, Tenderness - Extremities Exam Additional comments: no calf tenderness or swelling, BL 1+ pedal edema extending to mid-calf, pedal pulses present - Back Exam Back exam: NORMAL INSPECTION. absent: CVA tenderness (L), CVA tenderness (R) - Neurological Exam Neurological exam: Alert, Oriented x3 - Psychiatric Exam Psychiatric exam: Normal Affect, Normal Mood - Skin Skin Exam: Dry, Normal Color, Warm Additional comments: multiple diffuse psoriatic plaques appreciated Discharge Plan - Follow Up Plan Condition: GUARDED Disposition: TRANSF TO SNF Instructions: Bosentan (By mouth), Atrial Fibrillation (DC), Pneumococcal Vaccine for Children (GEN), Pneumonectomy (DC), Heart Healthy Diet (DC), Diabetes Mellitus Type 2 in Adults (DC) Additional Instructions: Patient discharge to TCU. Referrals: Jose C Ambrocio MD [Primary Care Provider] - <Andriy Reyes - Last Filed: 03/08/17 11:16> Provider - Provider Date of Admission: 02/22/17 22:07 Attending physician: Andriy Reyes MD Primary care physician: Jose C Ambrocio MD Hospital Course - Lab Results Lab Results: Micro Results 02/22/17 23:00 Nose MRSA Culture (Admit) - Final MRSA NOT DETECTED 02/22/17 22:40 Urine Urine Culture - Final No Growth (<1,000 CFU/ML) Most Recent Lab Values WBC 7.9 10^3/ul (4.5-11.0) 02/27/17 07:30 RBC 4.86 10^6/uL (3.5-6.1) 02/27/17 07:30 Hgb 11.7 gm/dL (14.0-18.0) L 02/27/17 07:30 Hct 39.8 % (42.0-52.0) L 02/27/17 07:30 MCV 81.9 fL (80.0-105.0) 02/27/17 07:30 MCH 24.1 pg (25.0-35.0) L 02/27/17 07:30 MCHC 29.4 g/dl (31.0-37.0) L 02/27/17 07:30 RDW 16.6 % (11.5-14.5) H 02/27/17 07:30 Plt Count 161 10^3/uL (120.0-450.0) 02/27/17 07:30 MPV 10.5 fl (7.0-11.0) 02/27/17 07:30 Gran % 74.0 % (50.0-68.0) H 02/27/17 07:30 Lymph % (Auto) 16.8 % (22.0-35.0) L 02/27/17 07:30 [place] % (Auto) 9.2 % (1.0-6.0) H 02/27/17 07:30 Eos % (Auto) 0.0 % (1.5-5.0) L 02/27/17 07:30 Baso % (Auto) 0.0 % (0.0-3.0) 02/27/17 07:30 Gran # 5.85 (1.4-6.5) 02/27/17 07:30 Lymph # 1.3 (1.2-3.4) 02/27/17 07:30 [place] # 0.7 (0.1-0.6) H 02/27/17 07:30 Eos # 0.0 (0.0-0.7) 02/27/17 07:30 Baso # 0.00 K/mm3 (0.0-2.0) 02/27/17 07:30 pCO2 67 mm/Hg (35-45) H 02/24/17 06:00 pO2 62.0 mm/Hg (80-100) L 02/24/17 06:00 HCO3 38.7 mmol/L (21-28) H 02/24/17 06:00 ABG pH 7.37 (7.35-7.45) 02/24/17 06:00 ABG Total CO2 40.8 mmol.L (22-28) H 02/24/17 06:00 ABG O2 Saturation 93.9 % (95-98) L 02/24/17 06:00 ABG O2 Content 13.9 ML/dl (15-23) L 02/24/17 06:00 ABG Base Excess 11.2 mmol/L (-2.0-3.0) H 02/24/17 06:00 ABG Hemoglobin 10.8 g/dL (11.7-17.4) L 02/24/17 06:00 ABG Carboxyhemoglobin 2.6 % (0.5-1.5) H 02/24/17 06:00 POC ABG HHb (Measured) 5.9 % (0-5) H 02/24/17 06:00 ABG Methemoglobin 0.6 % (0.0-3.0) 02/24/17 06:00 ABG O2 Capacity 14.8 mL/dl (16-24) L 02/24/17 06:00 VBG pH 7.52 (7.32-7.43) H 02/22/17 21:00 VBG pCO2 59.0 (40-60) 02/22/17 21:00 VBG HCO3 48.2 mmol/l (21-28) H 02/22/17 21:00 VBG Total CO2 50.0 mmol.L (22-28) H 02/22/17 21:00 VBG O2 Sat (Calc) 99.6 % (40-65) H 02/22/17 21:00 VBG Base Excess 21.6 mmol/L (0.0-2.0) H 02/22/17 21:00 VBG Potassium 4.6 mmol/L (3.6-5.2) 02/22/17 21:00 Hgb O2 Saturation 91.0 % (95.0-98.0) L 02/24/17 06:00 Sodium 139.0 mmol/L (132-148) 02/22/17 21:00 Chloride 101.0 mmol/L (98-107) 02/22/17 21:00 Glucose 127 mg/dl (75-110) H 02/22/17 21:00 Lactate 0.7 mmol/L (0.7-2.1) 02/22/17 21:00 FiO2 30.0 % 02/24/17 06:00 Sodium 141 mmol/L (132-148) 02/27/17 07:30 Potassium 4.7 mmol/L (3.6-5.0) 02/27/17 07:30 Chloride 99 mmol/L (95-110) 02/27/17 07:30 Carbon Dioxide 36 mmol/L (21-33) H 02/27/17 07:30 Anion Gap 11 (10-20) 02/27/17 07:30 BUN 25 mg/dL (7-21) H 02/27/17 07:30 Creatinine 0.9 mg/dL (0.5-1.4) 02/27/17 07:30 Est GFR ( Amer) > 60 02/27/17 07:30 Est GFR (Non-Af Amer) > 60 02/27/17 07:30 POC Glucose (mg/dL) 134 mg/dL (65-110) H 02/28/17 04:46 Random Glucose 101 mg/dL (70-110) 02/27/17 07:30 Lactic Acid 1.0 mmol/L (0.7-2.1) 02/23/17 01:50 Calcium 8.6 mg/dL (8.4-10.5) 02/27/17 07:30 Phosphorus 3.0 mg/dL (2.5-4.5) 02/25/17 06:10 Magnesium 2.2 mg/dL (1.7-2.2) 02/25/17 06:10 Total Bilirubin 0.5 mg/dL (0.2-1.3) 02/25/17 06:10 AST 27 U/L (15-59) 02/25/17 06:10 ALT 27 U/L (7-56) 02/25/17 06:10 Alkaline Phosphatase 67 U/L (38-133) 02/25/17 06:10 Troponin I < 0.01 ng/mL 02/22/17 20:45 NT-Pro-B Natriuret Pep 252 pg/mL (0-450) 02/22/17 20:45 Total Protein 7.9 g/dL (5.8-8.3) 02/25/17 06:10 Albumin 3.8 g/dL (3.0-4.8) 02/25/17 06:10 Globulin 4.1 gm/dL 02/25/17 06:10 Albumin/Globulin Ratio 0.9 (1.1-1.8) L 02/25/17 06:10 Procalcitonin < 0.05 NG/ML (0.19-0.49) L 02/22/17 20:45 Venous Blood Potassium 4.6 mmol/L (3.6-5.2) 02/22/17 21:00 Urine Color Straw (YELLOW) 02/22/17 22:40 Urine Appearance Clear (CLEAR) 02/22/17 22:40 Urine pH 7.0 (4.7-8.0) 02/22/17 22:40 Ur Specific [place] 1.015 (1.005-1.035) 02/22/17 22:40 Urine Protein Negative mg/dL (<30 mg/dL) 02/22/17 22:40 Urine Glucose (UA) Negative mg/dL (NEGATIVE) 02/22/17 22:40 Urine Ketones Negative mg/dL (NEGATIVE) 02/22/17 22:40 Urine Blood Small (NEGATIVE) H 02/22/17 22:40 Urine Nitrate Negative (NEGATIVE) 02/22/17 22:40 Urine Bilirubin Negative (NEGATIVE) 02/22/17 22:40 Urine Urobilinogen 0.2 E.U./dL (<1 E.U./dL) 02/22/17 22:40 Ur Leukocyte Esterase Negative Kristina/uL (NEGATIVE) 02/22/17 22:40 Urine RBC 0 - 2 /hpf (0-2) 02/22/17 22:40 Urine WBC 0 - 2 /hpf (0-6) 02/22/17 22:40 Ur Epithelial Cells 0 - 2 /hpf (0-5) 02/22/17 22:40 Urine Bacteria Trace (NEG) 02/22/17 22:40 Influenza Typ A,B (EIA) Negative for flu a/b (NEGATIVE) 02/22/17 22:40 Attending/Attestation - Attestation I have personally seen and examined this patient.: Yes I have fully participated in the care of the patient.: Yes I have reviewed all pertinent clinical information, including history, physical exam and plan: Yes Notes (Text): 03/08/17 11:14 attending note; Patient seen and examined with resident. Patient is a 71 year old, legally blind, man with a history of severe COPD (on 4L of O2 at home), pulmonary hypertension, obstructive sleep apnea, psoriasis, HTN, NDDM and CAD (s/p stents), who presents with 2 days of worsening SOB, NIETO, wheezing and generalized malaise. Treated with BiPAP and oxygen. Evaluated by pulmonary Dr. Payton. Patient is clinically improving. Treated with DuoNeb, IV Solu-Medrol. improved signoficantly. Cardiology evaluation with Dr. Loyd appreciated.continue aspirin, Cardizem, Lipitor. PT evaluation appreciated. Continue CPAP at night and oxygen during daytime. transfer to TCU today. Upon discharge the patient will follow up with PMD and pulmonary Dr. oliveira. diagnosis; copd sleep apnea HTN CAD DM 03/08/17 11:16
== END 2017-02-27 19:50 | DRG 190 ==
LOC: ED 20:21 → ERH 22:07 → CCU 02-23 00:02 → 5RNO 02-26 13:34
PROVIDERS: ADMIT Internal Medicine; ATTEND Internal Medicine
PROC: 5A09457 Assistance with Respiratory Ventilation, 24-96 Consecutive Hours, Continuous Positive Airway Pressure (ICD-10-PCS; principal; 2017-02-23)
DX: J44.0 Chronic obstructive pulmonary disease with (acute) lower respiratory infection (principal); J18.0 Bronchopneumonia, unspecified organism; J96.02 Acute respiratory failure with hypercapnia; E87.3 Alkalosis; I50.30 Unspecified diastolic (congestive) heart failure; I11.0 Hypertensive heart disease with heart failure; J44.1 Chronic obstructive pulmonary disease with (acute) exacerbation; I27.2 Other secondary pulmonary hypertension; E11.65 Type 2 diabetes mellitus with hyperglycemia; G47.33 Obstructive sleep apnea (adult) (pediatric); L40.9 Psoriasis, unspecified; I25.10 Atherosclerotic heart disease of native coronary artery without angina pectoris; H54.8 Legal blindness, as defined in USA; K59.00 Constipation, unspecified; F41.9 Anxiety disorder, unspecified; Z95.5 Presence of coronary angioplasty implant and graft; Z87.891 Personal history of nicotine dependence; Z79.84 Long term (current) use of oral hypoglycemic drugs; Z99.81 Dependence on supplemental oxygen

== ENCOUNTER 2017-02-27 19:35 | Inpatient (IN) | payer MEDICARE ==
[2017-02-27] MEDS ORDERED: POLYETHYLENE GLYCOL 3350 17 GM/Dose PACKET PO PRN (20:18)
[2017-02-27] MEDS: Insulin Lispro (humaLOG) LOW Coverage SC SCH (21:52)
[2017-02-27 22:18] VITALS: BMI 28.7
[2017-02-28] MEDS: Azithromycin 500MG/NS 250ml 250 ML IVPB SCH (05:29)
[2017-02-28] MEDS: Pantoprazole 40 mg EC Tab PO SCH (05:31)
[2017-02-28] MEDS: Insulin Lispro (humaLOG) LOW Coverage SC SCH ×4 (06:49→21:51)
[2017-02-28] MEDS: Budesonide 0.5 mg/2 ml Inhal Susp UD IH SCH ×2 (07:13→20:43)
[2017-02-28 08:47] LABS: HEMATOCRIT 40.4 % (42.0-52.0); MEAN CELL VOLUME 82.8 fL (80.0-105.0); MEAN CORPUSCULAR HEMOGLOBIN 24.4 pg (25.0-35.0); MEAN CORPUSCULAR HGB CONC 29.5 g/dl (31.0-37.0); MEAN PLATELET VOLUME 10.4 fl (7.0-11.0); RED CELL DISTRIBUTION WIDTH 16.4 % (11.5-14.5); WHITE BLOOD COUNT 8.6 10^3/ul (4.5-11.0)
[2017-02-28 08:56] LABS: ALB/GLOB RATIO 0.9 (1.1-1.8); ALKALINE PHOSPHATASE 59 U/L (38-133); ALT/SGPT 60 U/L (7-56); AST/SGOT 28 U/L (15-59); BILIRUBIN,TOTAL 0.5 mg/dL (0.2-1.3); BLOOD UREA NITROGEN 19 mg/dL (7-21); CALCIUM 8.5 mg/dL (8.4-10.5); CARBON DIOXIDE 36 mmol/L (21-33); CHLORIDE 99 mmol/L (98-107); GFR AFRICAN-AMERICAN > 60; GLUCOSE,RANDOM 149 mg/dL (70-110); POTASSIUM 4.3 mmol/L (3.6-5.0); SODIUM 141 mmol/L (132-148); TOTAL PROTEIN 7.1 g/dL (5.8-8.3)
--- NOTE | 2017-02-28 09:43 | PN ---
DATE: 02/28/2017 The patient was seen and examined on transitional care unit. He was admitted with altered mental sta tus, cellulitis, congestive heart failure and chronic obstructive pulmonary disease. Currently, he i s sleepy and confused. There is no acute shortness of breath noted. His most recent admission was p rompted by exacerbation of congestive heart failure, chronic obstructive pulmonary disease and known pulmonary hypertension. He was using BiPAP at home and was admitted for intravenous diuretics. PHYSICAL EXAMINATION: VITAL SIGNS: Blood pressure 140/60, pulse 56, respirations 18, and afebrile. HEAD, EARS, NOSE AND THROAT: Within normal limits. NECK: Supple with no jugular vein distention. CHEST: Symmetrical. HEART: S1, S2, no S3, regular. GASTROINTESTINAL: Abdomen soft, nontender with no organomegaly. EXTREMITIES: Trace edema. SKIN: Clear with no skin rashes. NEUROLOGIC: No focal deficits. Chest x-ray was reviewed by me, reveals patchy bilateral densities, left more than right with left pl eural effusion. ASSESSMENT: 1. Exacerbation of chronic obstructive pulmonary disease and chronic respiratory insufficiency. 2. Status post episode of acute respiratory failure. 3. Coronary artery disease. 4. Nonsustained ventricular tachycardia. RECOMMENDATIONS: The patient's condition is still tenuous, however improved slightly. We will nilsa nue with all current intervention. Block Piler's input appreciated. Dr. Caldera advises conservativ e cardiac management. We will continue to address both congestive heart failure and chronic obstruct gia pulmonary disease. The patient's long-term prognosis is poor. Luke Coulter MD cc: [id number] TT: 02/28/2017 09:42:32 Confirmation # [id number] Dictation # [id number]
[2017-02-28] MEDS: MethylPREDNISolone 40 mg Vial IVP SCH ×2 (10:30→17:24)
[2017-02-28] MEDS: diltiaZEM 300 mg/24 Hours CD Cap PO SCH (11:22)
[2017-02-28] MEDS: Home Med 1 UNIT PO SCH ×2 (11:23→17:21)
--- NOTE | 2017-02-28 12:02 | CP.PCM.HP ---
<Adela Candelario - Last Filed: 02/28/17 11:51> History of Present Illness - History of Present Illness History of Present Illness: CC: transfer to TCU 71 year old male with past medical history as severe COPD (on 4L of O2 at home) , pulmonary hypertension, obstructive sleep apnea, psoriasis, HTN, NDDM and CAD (s/p stents) and being legally blind is transferred from regular floor to TCU. Pt was admitted to hospital for acute hypercapneic respiratory distress due to acute COPD exacerbation and bilateral PNA. Patient was started on antiobiotics , steroids, breathing treatment and IV lasixs. Patient was also placed on BIPAP machine. Echocardiogram showed LVEF wnl, grade 1 relaxing abnormality, moderate pulmonary HTN. EKG and troponins were negative. Patient's symptoms improved daily. Patient was also made DNR/DNI during hospital stay. Today, patient denies having any CP, SOB with the use of NC, abd pain, N/V/D/C. PMHx: stated above NKDA Medications; see MAR Present on Admission - Present on Admission Any Indicators Present on Admission: No Review of Systems - Constitutional Constitutional: absent: Chills, Fever - EENT Eyes: absent: Change in Vision, Other Visual Disturbances Nose/Mouth/Throat: absent: Nasal Congestion, Nasal Discharge, Sore Throat - Cardiovascular Cardiovascular: absent: Chest Pain, Dyspnea, Leg Edema - Respiratory Respiratory: absent: Cough, Dyspnea, Wheezing - Gastrointestinal Gastrointestinal: absent: Abdominal Pain, Constipation, Diarrhea, Nausea, Vomiting - Genitourinary Genitourinary: absent: Dysuria, Urinary Frequency Past Patient History - Infectious Disease Hx of Infectious Diseases: None - Tetanus Immunizations Tetanus Immunization: Up to Date - Past Social History Smoking Status: Former Smoker - CARDIAC Hx Cardiac Disorders: Yes Hx Congestive Heart Failure: Yes Hx Hypertension: Yes - PULMONARY Hx Chronic Obstructive Pulmonary Disease (COPD): Yes (end stage) - NEUROLOGICAL Hx Neurological Disorder: Yes (Blind since the age of 1.) - HEENT Hx Blind: Yes (since age 1) - RENAL Hx Renal Failure: Yes - ENDOCRINE/METABOLIC Hx Diabetes Mellitus Type 2: Yes (niddm) - HEMATOLOGICAL/ONCOLOGICAL Hx Blood Disorders: Yes Hx Cancer: Yes (lung mass) - INTEGUMENTARY Hx Dermatological Problems: Yes (Reddened, flush skin, dry and taut. Thickened, whitish-yellowish skin patch) Hx Psoriasis: Yes Other/Comment: Generalized body surface area, including extremities and torso with reddened, flushed skin with dry, whitish-yellow, thick, scaly, flaky patches. - MUSCULOSKELETAL/RHEUMATOLOGICAL Hx Falls: Yes (past) - GASTROINTESTINAL Hx Gastrointestinal Disorders: Yes (reflux) - GENITOURINARY/GYNECOLOGICAL Hx Genitourinary Disorders: Yes Hx Reproductive Disorders: No Other/Comment: urinary urgency/frequency - PSYCHIATRIC Hx Psychophysiologic Disorder: Yes Hx Anxiety: Yes Hx Depression: Yes - SURGICAL HISTORY Hx Appendectomy: Yes - ANESTHESIA Hx Anesthesia Reactions: No Hx Malignant Hyperthermia: No Meds Allergies/Adverse Reactions: Allergies Allergy/AdvReac Type Severity Reaction Status Date / Time No Known Allergies Allergy Verified 02/28/17 04:56 Physical Exam - Constitutional Appears: Non-toxic, No Acute Distress - Head Exam Head Exam: ATRAUMATIC, NORMAL INSPECTION - Eye Exam Additional comments: legally blind - ENT Exam ENT Exam: Mucous Membranes Moist - Respiratory Exam Respiratory Exam: Clear to Auscultation Bilateral. absent: Rales, Rhonchi, Wheezes - Cardiovascular Exam Cardiovascular Exam: REGULAR RHYTHM, +S1, +S2. absent: Diastolic murmur, Gallop , Rubs, Systolic Murmur - GI/Abdominal Exam GI & Abdominal Exam: Normal Bowel Sounds, Soft. absent: Distended, Firm, Guarding, Rigid, Tenderness - Extremities Exam Extremities exam: Negative for: pedal edema, tenderness - Neurological Exam Neurological exam: Alert, Oriented x3 - Psychiatric Exam Psychiatric exam: Normal Affect, Normal Mood - Skin Additional comments: psoriasis skin lesions in LE Results - Vital Signs Recent Vital Signs: Last Vital Signs Temp 98.1 F 02/28/17 10:00 Pulse 70 02/28/17 10:00 Resp 20 02/28/17 10:00 BP 121/60 02/28/17 10:29 Pulse Ox 97 02/28/17 10:00 - Labs Result Diagrams: 02/28/17 08:44 02/28/17 08:44 Labs: Laboratory Results - last 24 hr 02/28/17 08:44 WBC 8.6 RBC 4.88 Hgb 11.9 L Hct 40.4 L MCV 82.8 MCH 24.4 L MCHC 29.5 L RDW 16.4 H Plt Count 180 MPV 10.4 Sodium 141 Potassium 4.3 Chloride 99 Carbon Dioxide 36 H Anion Gap 10 BUN 19 Creatinine 0.8 Est GFR ( Amer) > 60 Est GFR (Non-Af Amer) > 60 Random Glucose 149 H Calcium 8.5 Total Bilirubin 0.5 AST 28 ALT 60 H Alkaline Phosphatase 59 Total Protein 7.1 Albumin 3.5 Globulin 3.7 Albumin/Globulin Ratio 0.9 L Assessment & Plan - Assessment and Plan (Free Text) Assessment: The patient is a 71M with a PMH of severe COPD (on 4L of O2 at home), pulmonary HTN, SARBJIT, psoriasis, HTN, NIDDM, CAD (s/p stents), who is legally blind is transferred to TCU for further rehabilitation after hospital stay for PNA and respiratory distress. 1. Acute exacerbation of chronic COPD - Improved - Pulmonology is consulted. Per recs, continue current therapy, gentle taper of steroids, monitor LFT's, poor prognosis - duonebs Q4 tanmay, q2 PRN, IV solumedrol 20 BID, Budesonide 0.5 IH Q12, tessalon pearls, bosentan - NC prn maintain O2 levels between 93-95%. Return to BiPAP if needed. Decrease treatment if O2 sats >95% - Continue BiPAP at night 2. Pneumonia - improving. Afebrile and no WBC count - azithromycin day 4 3. History of pulmonary HTN. Diastolic CHF ECHO 09/2016: 56% LVEF, mild pulmonary HTN, mild/mod tricuspid regurgitation ECHO 02/24: LVEF wnl, grade 1 relaxing abnormality, moderate pulmonary HTN - Cardiology consult--appreciate recs - Lasix 40mg IV Daily - continue home Bosentan 125mg PO BID 4. Chronic HTN - Hold Lasix 40IV Daily, - cardizem 300mg PO daily - Heart healthy, low sodium diet - lasix 40 IV daily 5. NIDDM - Humalog sliding scale insulin - Accu-checks AC&HS - Carb consistent diet 6. History of CAD s/p coronary stents: EKG: Sinus tachycardia with intermittent PAC's, non-specific ST changes, troponins neg x2 - ASA 81mg 7. Anxiety - Restart home xanax 0.25mg BID PO 8. Constipation: - Colace PO daily, miralax 9. Psoriasis skin lesions - Chronic, will treat if symptomatic GI: IV protonix daily, DVT: SC Heparin Pt seen and discussed with Dr. Reyes - Date & Time Date: 02/28/17 Time: 12:04 <Andriy Reyes - Last Filed: 02/28/17 13:22> Results - Vital Signs Recent Vital Signs: Last Vital Signs Temp 98.1 F 02/28/17 10:00 Pulse 70 02/28/17 10:00 Resp 20 02/28/17 10:00 BP 121/60 02/28/17 10:29 Pulse Ox 97 02/28/17 10:00 - Labs Result Diagrams: 02/28/17 08:44 02/28/17 08:44 Labs: Laboratory Results - last 24 hr 02/28/17 08:44 WBC 8.6 RBC 4.88 Hgb 11.9 L Hct 40.4 L MCV 82.8 MCH 24.4 L MCHC 29.5 L RDW 16.4 H Plt Count 180 MPV 10.4 Sodium 141 Potassium 4.3 Chloride 99 Carbon Dioxide 36 H Anion Gap 10 BUN 19 Creatinine 0.8 Est GFR ( Amer) > 60 Est GFR (Non-Af Amer) > 60 Random Glucose 149 H Calcium 8.5 Total Bilirubin 0.5 AST 28 ALT 60 H Alkaline Phosphatase 59 Total Protein 7.1 Albumin 3.5 Globulin 3.7 Albumin/Globulin Ratio 0.9 L Assessment & Plan - Assessment and Plan (Free Text) Assessment: Attending note; Patient seen and examined with resident in TCU. Patient is a 71 year old male with past medical history as severe COPD (on 4L of O2 at home), pulmonary hypertension, obstructive sleep apnea, psoriasis, HTN , NDDM and CAD (s/p stents) and being legally blind is transferred from regular floor to TCU. COPD exacerbation; continue oxygen during daytime and BiPAP at night. Continue IV Zithromax and IV Solu-Medrol. Continue DuoNeb treatment. CHF; resolving. Continue IV Lasix Pulmonary hypertension; continue bosentan. Continue physical therapy. Patient is DNI DNR. Long-term prognosis is poor. Case discussed with patient's niece Racheal in detail yesterday. Case discussed with PMD in detail. Attending/Attestation - Attestation I have personally seen and examined this patient.: Yes I have fully participated in the care of the patient.: Yes I have reviewed all pertinent clinical information: Yes
[2017-02-28] MEDS: Albuterol-Ipratrop 3 mg / 0.5 (3 ml) UD IH PRN (20:42)
[2017-03-01] MEDS: Azithromycin 500MG/NS 250ml 250 ML IVPB SCH (05:26)
[2017-03-01] MEDS: Pantoprazole 40 mg EC Tab PO SCH (06:11)
[2017-03-01] MEDS: Insulin Lispro (humaLOG) LOW Coverage SC SCH ×4 (06:35→21:26)
[2017-03-01] MEDS: Budesonide 0.5 mg/2 ml Inhal Susp UD IH SCH ×2 (07:25→22:14)
[2017-03-01] MEDS: diltiaZEM 300 mg/24 Hours CD Cap PO SCH (09:58)
[2017-03-01] MEDS: MethylPREDNISolone 40 mg Vial IVP SCH ×2 (10:00→17:45)
[2017-03-01] MEDS: Home Med 1 UNIT PO SCH ×2 (11:31→17:44)
[2017-03-01] MEDS: Albuterol-Ipratrop 3 mg / 0.5 (3 ml) UD IH PRN (22:14)
[2017-03-02] MEDS: Azithromycin 500MG/NS 250ml 250 ML IVPB SCH (05:55)
[2017-03-02] MEDS: Pantoprazole 40 mg EC Tab PO SCH (05:57)
[2017-03-02] MEDS: Insulin Lispro (humaLOG) LOW Coverage SC SCH ×4 (06:34→22:07)
[2017-03-02] MEDS: Budesonide 0.5 mg/2 ml Inhal Susp UD IH SCH ×2 (07:18→21:27)
[2017-03-02] MEDS: Arformoterol 15 mcg/2 ml Inh Sol IH SCH ×2 (07:18→21:27)
--- NOTE | 2017-03-02 07:35 | PN ---
DATE: 03/02/2017 SUBJECTIVE: The patient appears comfortable this morning. He is not short of breath at rest. PHYSICAL EXAMINATION: VITAL SIGNS: Temperature is 98.3, pulse 74, respirations 18, blood pressure 118 /60. Oxygen saturation on nasal cannula is 94%. HEENT: Normocephalic, atraumatic. No JVD. CARDIOVASCULAR: Systolic ejection murmur at the lower left sternal border. No S3 gallop. LUNGS: Decreased breath sounds at the bases. Minimal rhonchi. No wheezing. EXTREMITIES: Mild edema. No cyanosis, no clubbing. Calves are nontender to palpation. GASTROINTESTINAL: Abdomen is soft, nontender, nondistended. Bowel sounds are positive. SKIN: No acute rash. NEUROLOGIC: Limited at the present time. IMPRESSION: 1. Recurrent bronchitis. 2. End-stage chronic obstructive pulmonary disease, on home oxygen. 3. Left upper lobe lung mass, refused workup in the past. 4. Obstructive sleep apnea. 5. Pulmonary hypertension. 6. Coronary artery disease. PLAN: The patient appears comfortable this morning. He is not short of breath at rest. He states he is feeling much better overall. On physical exam, there is no significant bronchospasm noted. I will continue with the current nebulizer treatments and low-dose intravenous steroids for now. The patient also remains on antibiotic therapy. There are no temperatures noted. There is no leukocytosis. Clinical status of the patient is certainly improved -- compared to the initial presentation. However, the overall status/prognosis of this patient remains poor. I will discuss the above with the attending physician. Fabricio Edmond MD cc: [phone] TT: 03/02/2017 07:34:43 Confirmation # [id number] Dictation # [id number] en MTDD
[2017-03-02 08:31] LABS: BLOOD UREA NITROGEN 17 mg/dL (7-21); CALCIUM 8.6 mg/dL (8.4-10.5); CARBON DIOXIDE 39 mmol/L (21-33); CHLORIDE 95 mmol/L (95-110); GFR AFRICAN-AMERICAN > 60; GLUCOSE,RANDOM 120 mg/dL (70-110); SODIUM 140 mmol/L (132-148)
[2017-03-02] MEDS: diltiaZEM 300 mg/24 Hours CD Cap PO SCH (09:29)
[2017-03-02] MEDS: MethylPREDNISolone 40 mg Vial IVP SCH ×2 (09:30→17:51)
[2017-03-02] MEDS: Home Med 1 UNIT PO SCH ×2 (09:35→17:52)
--- NOTE | 2017-03-02 12:48 | CP.PCM.PN ---
<Zaheer Kaba - Last Filed: 03/02/17 12:36> Subjective - Date & Time of Evaluation Date of Evaluation: 03/02/17 Time of Evaluation: 08:00 - Subjective Subjective: Hospitalist Progress Note: Pt seen and examined at bedside. No acute events overnight. Pt states that he is doing well with no complaints at this time. Denies any headache, dizziness, f /c, sob, cp, palpitations, abd pain, n/v/d, urinary or bm complaints. Objective - Vital Signs/Intake and Output Vital Signs (last 24 hours): Temp Pulse Resp BP Pulse Ox 98.7 F 70 20 127/78 94 L 03/02/17 10:00 03/02/17 10:00 03/02/17 10:00 03/02/17 10:00 03/02/17 10:00 - Medications Medications: Current Medications Albuterol/Ipratropium (Duoneb 3 Mg/0.5 Mg (3 Ml) Ud) 3 ml IH Q2H PRN; Protocol PRN Reason: Shortness of Breath Last Admin: 03/01/17 22:14 Dose: 3 ml Alprazolam (Xanax) 0.25 mg PO BID PRN; Protocol PRN Reason: Anxiety Stop: 03/06/17 20:19 Arformoterol Tartrate (Brovana) 15 mcg IH [id number] TANMAY Last Admin: 03/02/17 07:18 Dose: 15 mcg Aspirin (Aspirin Chewable) 81 mg PO DAILY TANMAY PRN Reason: Protocol Last Admin: 03/02/17 09:28 Dose: 81 mg Benzonatate (Tessalon Perles) 100 mg PO TID PRN; Protocol PRN Reason: Cough Last Admin: 03/02/17 09:28 Dose: 100 mg Budesonide (Pulmicort Respules) 0.5 mg IH [id number] TANMAY PRN Reason: Protocol Last Admin: 03/02/17 07:18 Dose: 0.5 mg Diltiazem HCl (Cardizem Cd) 300 mg PO DAILY TANMAY PRN Reason: Protocol Last Admin: 03/02/17 09:29 Dose: 300 mg Docusate Sodium (Colace) 100 mg PO DAILY TANMAY PRN Reason: Protocol Last Admin: 03/02/17 09:29 Dose: 100 mg Furosemide (Lasix) 40 mg IVP DAILY TANMAY PRN Reason: Protocol Last Admin: 03/02/17 09:35 Dose: 40 mg Heparin Sodium (Porcine) (Heparin) 5,000 units SC 0600,1800 TANMAY PRN Reason: Protocol Last Admin: 03/02/17 05:57 Dose: 5,000 units Home Med (Home Med) 125 unit PO BID TANMAY PRN Reason: Protocol Last Admin: 03/02/17 09:35 Dose: 125 unit Azithromycin (Zithromax 500mg In Ns) 250 mls @ 167 mls/hr IVPB 0600 TANMAY PRN Reason: Protocol Last Admin: 03/02/17 05:55 Dose: 167 mls/hr Insulin Human Lispro (Humalog Low) 0 units SC ACHS TANMAY PRN Reason: Protocol Last Admin: 03/02/17 11:38 Dose: Not Given Methylprednisolone (Solu-Medrol) 20 mg IVP BID TANMAY PRN Reason: Protocol Last Admin: 03/02/17 09:30 Dose: 20 mg Ondansetron HCl (Zofran Inj) 4 mg IVP Q6H PRN; Protocol PRN Reason: Nausea/Vomiting Pantoprazole Sodium (Protonix Ec Tab) 40 mg PO 0630 TANMAY PRN Reason: Protocol Last Admin: 03/02/17 05:57 Dose: 40 mg Polyethylene Glycol (Miralax) 17 gm PO BID PRN; Protocol PRN Reason: Constipation Roflumilast (Daliresp) 500 mcg PO DAILY TANMAY PRN Reason: Protocol Last Admin: 03/02/17 09:29 Dose: 500 mcg - Labs Labs: 02/28/17 08:44 03/02/17 07:40 - Constitutional Appears: No Acute Distress - Head Exam Head Exam: ATRAUMATIC, NORMAL INSPECTION, NORMOCEPHALIC - Eye Exam Eye Exam: EOMI, Normal appearance, PERRL Pupil Exam: NORMAL ACCOMODATION, PERRL - ENT Exam ENT Exam: Mucous Membranes Moist, Normal Exam - Neck Exam Neck Exam: Full ROM, Normal Inspection. absent: Lymphadenopathy - Respiratory Exam Respiratory Exam: Rhonchi, Wheezes, NORMAL BREATHING PATTERN. absent: Accessory Muscle Use Additional comments: Baseline wheezing and Ronchi - Cardiovascular Exam Cardiovascular Exam: REGULAR RHYTHM, RRR, +S1, +S2. absent: Murmur - GI/Abdominal Exam GI & Abdominal Exam: Soft. absent: Distended, Tenderness - Extremities Exam Extremities Exam: Full ROM, Normal Capillary Refill, Normal Inspection. absent : Joint Swelling, Pedal Edema - Back Exam Back Exam: NORMAL INSPECTION - Neurological Exam Neurological Exam: Alert, Awake, Oriented x3 - Psychiatric Exam Psychiatric exam: Normal Affect, Normal Mood - Skin Skin Exam: Dry, Intact, Normal Color, Warm Assessment and Plan - Assessment and Plan (Free Text) Assessment: 71M with PMH of severe COPD (on 4L of O2 at home), pulmonary HTN, SARBJIT, psoriasis, HTN, NIDDM, CAD (s/p stents), who is legally blind is transferred to TCU for further rehabilitation after hospital stay for PNA and respiratory distress. 1. Acute exacerbation of chronic COPD- Improved - Pulmonology is consulted - continue current therapy with gentle taper of steroids - Cont duonebs Q4 tanmay, q2 PRN, IV solumedrol 20 BID, Budesonide 0.5 IH Q12, tessalon pearls, bosentan - NC prn maintain O2 levels between 93-95%. Return to BiPAP PRN. Decrease treatment if O2 sats >95% - Continue BiPAP at night 2. Pneumonia - Afebrile and no WBC count - azithromycin day 6 3. History of pulmonary HTN. Diastolic CHF - ECHO 09/2016: 56% LVEF, mild pulmonary HTN, mild/mod tricuspid regurgitation ECHO 02/24: LVEF wnl, grade 1 relaxing abnormality, moderate pulmonary HTN - Cardiology consult--appreciate recs - Lasix 40mg IV Daily - continue home Bosentan 125mg PO BID 4. Chronic HTN - cardizem 300mg PO daily - lasix 40 IV daily 5. NIDDM - ISS Humalog - Accuchecks ACHS - Carb consistent diet 6. History of CAD s/p coronary stents: - EKG: Sinus tachycardia with intermittent PAC's, non-specific ST changes - ASA 81mg 7. Anxiety - Home xanax 0.25mg BID PO 8. Constipation: - Colace PO daily - Miralax 9. Psoriasis skin lesions - Chronic, will treat if symptomatic GI ppx: protonix daily, DVT ppx : SC Heparin Case and plan was seen, reviewed, and discussed in detail with Dr Fairchild. <Jamie Fairchidl - Last Filed: 03/02/17 17:57> Objective - Vital Signs/Intake and Output Vital Signs (last 24 hours): Temp Pulse Resp BP Pulse Ox 98.4 F 68 20 110/64 96 03/02/17 16:11 03/02/17 16:11 03/02/17 16:11 03/02/17 16:11 03/02/17 16:11 - Medications Medications: Current Medications Albuterol/Ipratropium (Duoneb 3 Mg/0.5 Mg (3 Ml) Ud) 3 ml IH Q2H PRN; Protocol PRN Reason: Shortness of Breath Last Admin: 03/01/17 22:14 Dose: 3 ml Alprazolam (Xanax) 0.25 mg PO BID PRN; Protocol PRN Reason: Anxiety Stop: 03/06/17 20:19 Arformoterol Tartrate (Brovana) 15 mcg IH [id number] TANMAY Last Admin: 03/02/17 07:18 Dose: 15 mcg Aspirin (Aspirin Chewable) 81 mg PO DAILY TANMAY PRN Reason: Protocol Last Admin: 03/02/17 09:28 Dose: 81 mg Benzonatate (Tessalon Perles) 100 mg PO TID PRN; Protocol PRN Reason: Cough Last Admin: 03/02/17 09:28 Dose: 100 mg Budesonide (Pulmicort Respules) 0.5 mg IH [id number] TANMAY PRN Reason: Protocol Last Admin: 03/02/17 07:18 Dose: 0.5 mg Diltiazem HCl (Cardizem Cd) 300 mg PO DAILY TANMAY PRN Reason: Protocol Last Admin: 03/02/17 09:29 Dose: 300 mg Docusate Sodium (Colace) 100 mg PO DAILY TANMAY PRN Reason: Protocol Last Admin: 03/02/17 09:29 Dose: 100 mg Furosemide (Lasix) 40 mg IVP DAILY TANMAY PRN Reason: Protocol Last Admin: 03/02/17 09:35 Dose: 40 mg Heparin Sodium (Porcine) (Heparin) 5,000 units SC 0600,1800 TANMAY PRN Reason: Protocol Last Admin: 03/02/17 17:46 Dose: 5,000 units Home Med (Home Med) 125 unit PO BID TANMAY PRN Reason: Protocol Last Admin: 03/02/17 17:52 Dose: 125 unit Azithromycin (Zithromax 500mg In Ns) 250 mls @ 167 mls/hr IVPB 0600 TANMAY PRN Reason: Protocol Last Admin: 03/02/17 05:55 Dose: 167 mls/hr Insulin Human Lispro (Humalog Low) 0 units SC ACHS TANMAY PRN Reason: Protocol Last Admin: 03/02/17 17:52 Dose: Not Given Methylprednisolone (Solu-Medrol) 20 mg IVP BID TANMAY PRN Reason: Protocol Last Admin: 03/02/17 17:51 Dose: 20 mg Ondansetron HCl (Zofran Inj) 4 mg IVP Q6H PRN; Protocol PRN Reason: Nausea/Vomiting Pantoprazole Sodium (Protonix Ec Tab) 40 mg PO 0630 TANMAY PRN Reason: Protocol Last Admin: 03/02/17 05:57 Dose: 40 mg Polyethylene Glycol (Miralax) 17 gm PO BID PRN; Protocol PRN Reason: Constipation Roflumilast (Daliresp) 500 mcg PO DAILY TANMAY PRN Reason: Protocol Last Admin: 03/02/17 09:29 Dose: 500 mcg - Labs Labs: 02/28/17 08:44 03/02/17 07:40 Attending/Attestation - Attestation I have personally seen and examined this patient.: Yes I have fully participated in the care of the patient.: Yes I have reviewed all pertinent clinical information, including history, physical exam and plan: Yes Notes (Text): Patient seen and examined with resident in TCU. This is a 71 year old male with past medical history of severe COPD (on 4L of O2 at home), pulmonary hypertension, obstructive sleep apnea, psoriasis, HTN, NDDM and CAD (s/p stents ) and being legally blind who got admitted for copd exacerbation. Continue oxygen during daytime and BiPAP at night. Continue IV Zithromax and IV Solu- Medrol taper. Continue DuoNeb treatment. Continue IV Lasix for chf. Continue bosentan for pulmonary hypertension. Continue physical therapy. Patient is DNI DNR. Long-term prognosis is poor. Follow up with in detail. Dr Jamie Fairchild
[2017-03-03] MEDS: Budesonide 0.5 mg/2 ml Inhal Susp UD IH SCH ×2 (07:59→18:59)
[2017-03-03] MEDS: Arformoterol 15 mcg/2 ml Inh Sol IH SCH ×2 (07:59→18:59)
--- NOTE | 2017-03-03 09:18 | PN ---
DATE: 03/03/2017 PULMONARY NOTE SUBJECTIVE: The patient appears very comfortable at rest. He is not short of breath. PHYSICAL EXAMINATION: VITAL SIGNS: Temperature is 98.4, pulse 68, respirations 18/20, blood pressure 110/64. Oxygen saturation on nasal cannula is 96%. HEENT: Normocephalic, atraumatic. No JVD. CARDIOVASCULAR: Systolic ejection murmur at the lower left sternal border. No S3 gallop. LUNGS: Decreased breath sounds at the bases. Very minimal/less rhonchi. No wheezing. EXTREMITIES: Mild edema. No cyanosis. No clubbing. Calves are nontender to palpation. GASTROINTESTINAL: Abdomen is soft, nontender, nondistended. Bowel sounds are positive. SKIN: No acute rash. NEUROLOGIC: Limited at the present time. IMPRESSION: 1. Recurrent bronchitis. 2. End-stage chronic obstructive pulmonary disease. 3. Left upper lobe lung mass, refused workup in the past. 4. Obstructive sleep apnea. 5. Pulmonary hypertension. 6. Coronary artery disease. PLAN: The patient appears very comfortable this morning. He is not short of breath at rest. He states he is feeling much better overall. On physical exam , his bronchospasm continues to resolve. In addition, there is no significant alveolar arterial gradient. I will continue with the current nebulizer treatments, but change to oral steroids this morning. The patient states he is for probable discharge tomorrow morning. He has certainly improved clinically - during this admission. However, again, the overall status/prognosis of this patient remains poor. All are aware. I will discuss the above with the attending physician. Fabricio Edmond MD cc: [id number] TT: 03/03/2017 09:17:50 Confirmation # [id number] Dictation # [id number] radha PICHARDO
[2017-03-03] MEDS: diltiaZEM 300 mg/24 Hours CD Cap PO SCH (10:06)
[2017-03-03] MEDS: Home Med 1 UNIT PO SCH ×2 (10:16→18:19)
[2017-03-03] MEDS: Insulin Lispro (humaLOG) LOW Coverage SC SCH ×3 (11:30→23:08)
[2017-03-04] MEDS: Azithromycin 500MG/NS 250ml 250 ML IVPB SCH (05:42)
[2017-03-04] MEDS: Pantoprazole 40 mg EC Tab PO SCH (05:42)
[2017-03-04] MEDS: Insulin Lispro (humaLOG) LOW Coverage SC SCH ×3 (06:38→12:15)
[2017-03-04] MEDS: Budesonide 0.5 mg/2 ml Inhal Susp UD IH SCH (09:14)
[2017-03-04] MEDS: Arformoterol 15 mcg/2 ml Inh Sol IH SCH (09:14)
--- NOTE | 2017-03-04 10:07 | PN ---
DATE: 03/04/2017 SUBJECTIVE: The patient appears very comfortable this morning. He is out of bed sitting in the chair. He is not short of breath. PHYSICAL EXAMINATION: VITAL SIGNS: Temperature is 97.9, pulse 80, respirations 18, blood pressure 125 /75. Oxygen saturation on nasal cannula is 94-97%. HEENT: Normocephalic, atraumatic. No JVD. CARDIOVASCULAR: Systolic ejection murmur at the lower left sternal border. No S3 gallop. LUNGS: Decreased breath sounds at the bases. No rhonchi or wheezing this morning. EXTREMITIES: Mild edema. No cyanosis, no clubbing. Calves are nontender to palpation. GASTROINTESTINAL: Abdomen is soft, nontender, nondistended. Bowel sounds are positive. SKIN: No acute rash. NEUROLOGIC: Limited at the present time. IMPRESSION: 1. Recurrent bronchitis. 2. End-stage chronic obstructive pulmonary disease. 3. Left upper lobe lung mass, refused workup in the past. 4. Obstructive sleep apnea. 5. Pulmonary hypertension. 6. Coronary artery disease. PLAN: The patient appears very comfortable this morning. He is out of bed, sitting in the chair. He is not short of breath at rest. He states to feeling much better overall. On physical exam, his bronchospasm continues to resolve. I will continue with the current nebulizer treatments and oral steroids ( changed yesterday) for now. The patient also remains on antibiotic therapy. There are no temperatures noted. There is no leukocytosis. Clinical status of the patient is certainly improved - compared to the initial presentation. However, again, the overall status/prognosis of this patient unfortunately remains poor. The patient is for discharge in the near future. I will discuss the above with the attending physician. Fabricio Edmond MD cc: [id number] TT: 03/04/2017 10:06:06 Confirmation # [id number] Dictation # [id number] jermaine PICHARDO
[2017-03-04 10:28] VITALS: BP 115/70; PULSE 78; RESP 20; TEMP 98.1; O2SAT 98
[2017-03-04] MEDS: diltiaZEM 300 mg/24 Hours CD Cap PO SCH (10:33)
[2017-03-04] MEDS: Home Med 1 UNIT PO SCH (10:44)
--- NOTE | 2017-03-04 14:46 | CP.PCM.DIS ---
<Zaheer Kaba - Last Filed: 03/04/17 14:32> Provider - Provider Date of Admission: 02/27/17 19:35 Attending physician: Jamie Fairchild MD Primary care physician: Jose C Ambrocio MD Consults: Pulmonary, cardiology Time Spent in preparation of Discharge (in minutes): 45 Diagnosis - Discharge Diagnosis (1) COPD (chronic obstructive pulmonary disease) Status: Acute (2) COPD exacerbation Status: Acute Hospital Course - Lab Results Lab Results: Most Recent Lab Values WBC 8.6 10^3/ul (4.5-11.0) 02/28/17 08:44 RBC 4.88 10^6/uL (3.5-6.1) 02/28/17 08:44 Hgb 11.9 gm/dL (14.0-18.0) L 02/28/17 08:44 Hct 40.4 % (42.0-52.0) L 02/28/17 08:44 MCV 82.8 fL (80.0-105.0) 02/28/17 08:44 MCH 24.4 pg (25.0-35.0) L 02/28/17 08:44 MCHC 29.5 g/dl (31.0-37.0) L 02/28/17 08:44 RDW 16.4 % (11.5-14.5) H 02/28/17 08:44 Plt Count 180 10^3/uL (120.0-450.0) 02/28/17 08:44 MPV 10.4 fl (7.0-11.0) 02/28/17 08:44 Sodium 140 mmol/L (132-148) 03/02/17 07:40 Potassium 4.0 mmol/L (3.6-5.0) 03/02/17 07:40 Chloride 95 mmol/L (95-110) 03/02/17 07:40 Carbon Dioxide 39 mmol/L (21-33) H 03/02/17 07:40 Anion Gap 10 (10-20) 03/02/17 07:40 BUN 17 mg/dL (7-21) 03/02/17 07:40 Creatinine 0.8 mg/dL (0.5-1.4) 03/02/17 07:40 Est GFR ( Amer) > 60 03/02/17 07:40 Est GFR (Non-Af Amer) > 60 03/02/17 07:40 POC Glucose (mg/dL) 143 mg/dL (65-110) H 03/03/17 04:50 Random Glucose 120 mg/dL (70-110) H 03/02/17 07:40 Calcium 8.6 mg/dL (8.4-10.5) 03/02/17 07:40 Magnesium 2.0 mg/dL (1.7-2.2) 03/02/17 07:40 Total Bilirubin 0.5 mg/dL (0.2-1.3) 02/28/17 08:44 AST 28 U/L (15-59) 02/28/17 08:44 ALT 60 U/L (7-56) H 02/28/17 08:44 Alkaline Phosphatase 59 U/L (38-133) 02/28/17 08:44 Total Protein 7.1 g/dL (5.8-8.3) 02/28/17 08:44 Albumin 3.5 g/dL (3.0-4.8) 02/28/17 08:44 Globulin 3.7 gm/dL 02/28/17 08:44 Albumin/Globulin Ratio 0.9 (1.1-1.8) L 02/28/17 08:44 - Hospital Course Hospital Course: 71 year old male with pmh as severe COPD (on 4L of O2 at home), pulmonary hypertension, obstructive sleep apnea, psoriasis, HTN, NDDM and CAD (s/p stents ) and being legally blind was admitted to hospital for acute hypercapnic respiratory distress 2/2 acute COPD exacerbation and bilateral PNA. EKG and trops were negative. He was started on ABX, steroids, breathing tx and IV lasixs. Patient was also placed on BIPAP. Echo showed LVEF wnl, grade 1 relaxing abnormality, moderate pulmonary HTN. Patient's symptoms improved daily. Patient was also made DNR/DNI during hospital stay. He was subsequently sent to the TCU for rehab and deconditioning. Today patient is doing well denies having any headaches, dizziness, CP, SOB with the use of NC, abd pain, N/ V/D/C or urinary changes. Diagnosis COPD Exacerbation / Resp failure Discharge Exam - Head Exam Head Exam: ATRAUMATIC, NORMAL INSPECTION, NORMOCEPHALIC - Eye Exam Eye Exam: EOMI, Normal appearance, PERRL Pupil Exam: NORMAL ACCOMODATION, PERRL - Respiratory Exam Respiratory Exam: Clear to PA & Lateral, Rhonchi, Wheezes, NORMAL BREATHING PATTERN, UNREMARKABLE Additional comments: minor wheezes and ronchi - Cardiovascular Exam Cardiovascular Exam: REGULAR RHYTHM, RRR, +S1, +S2 - GI/Abdominal Exam GI & Abdominal Exam: Soft. absent: Distended, Rigid, Tenderness - Neurological Exam Neurological exam: Alert, Oriented x3, Reflexes Normal - Psychiatric Exam Psychiatric exam: Normal Affect, Normal Mood - Skin Skin Exam: Dry, Intact, Normal Color, Warm Discharge Plan - Discharge Medications Prescriptions: ALPRAZolam [Xanax] 0.25 mg PO BID PRN #30 tab PRN Reason: Anxiety Arformoterol [Brovana] 15 mcg IH [id number] #[id number] Aspirin [Aspirin Chewable] 81 mg PO DAILY #30 chew Bosentan [Tracleer] 125 mg PO BID #60 Budesonide [Pulmicort Respules] 0.5 mg IH [id number] #1 neb [id number] CD [Cardizem CD] 300 mg PO DAILY #30 cap Docusate [Colace] 100 mg PO DAILY #30 cap Furosemide [Lasix] 40 mg PO BID #60 vial Methylprednisolone [Medrol Dose Pack (21 tabs)] 4 mg PO DAILY #21 mg Pantoprazole [Protonix EC Tab] 40 mg PO ACB #7 ect Roflumilast [Daliresp] 500 mcg PO DAILY #30 tab Sitagliptin Phos/Metformin HCl [Janumet 50-500 mg Tablet] 1 each PO BID #60 tablet - Follow Up Plan Condition: GOOD Disposition: HOME/ ROUTINE Instructions: Bronchiolitis (GEN), Pneumonia (DC), Pneumonia (GEN) Additional Instructions: Please follow up with your Primary doctor within 1 week. Please follow up with Dr. Payton with in 2-3 weeks. If your symptoms recur come back to the closest ED. Please take your prescriptions as prescribed. Referrals: Jose C Ambrocio MD [Primary Care Provider] - <Jamie Fairchild - Last Filed: 03/04/17 15:20> Provider - Provider Date of Admission: 02/27/17 19:35 Attending physician: Jamie Fairchild MD Primary care physician: Jose C Ambrocio MD Hospital Course - Lab Results Lab Results: Most Recent Lab Values WBC 8.6 10^3/ul (4.5-11.0) 02/28/17 08:44 RBC 4.88 10^6/uL (3.5-6.1) 02/28/17 08:44 Hgb 11.9 gm/dL (14.0-18.0) L 02/28/17 08:44 Hct 40.4 % (42.0-52.0) L 02/28/17 08:44 MCV 82.8 fL (80.0-105.0) 02/28/17 08:44 MCH 24.4 pg (25.0-35.0) L 02/28/17 08:44 MCHC 29.5 g/dl (31.0-37.0) L 02/28/17 08:44 RDW 16.4 % (11.5-14.5) H 02/28/17 08:44 Plt Count 180 10^3/uL (120.0-450.0) 02/28/17 08:44 MPV 10.4 fl (7.0-11.0) 02/28/17 08:44 Sodium 140 mmol/L (132-148) 03/02/17 07:40 Potassium 4.0 mmol/L (3.6-5.0) 03/02/17 07:40 Chloride 95 mmol/L (95-110) 03/02/17 07:40 Carbon Dioxide 39 mmol/L (21-33) H 03/02/17 07:40 Anion Gap 10 (10-20) 03/02/17 07:40 BUN 17 mg/dL (7-21) 03/02/17 07:40 Creatinine 0.8 mg/dL (0.5-1.4) 03/02/17 07:40 Est GFR ( Amer) > 60 03/02/17 07:40 Est GFR (Non-Af Amer) > 60 03/02/17 07:40 POC Glucose (mg/dL) 143 mg/dL (65-110) H 03/03/17 04:50 Random Glucose 120 mg/dL (70-110) H 03/02/17 07:40 Calcium 8.6 mg/dL (8.4-10.5) 03/02/17 07:40 Magnesium 2.0 mg/dL (1.7-2.2) 03/02/17 07:40 Total Bilirubin 0.5 mg/dL (0.2-1.3) 02/28/17 08:44 AST 28 U/L (15-59) 02/28/17 08:44 ALT 60 U/L (7-56) H 02/28/17 08:44 Alkaline Phosphatase 59 U/L (38-133) 02/28/17 08:44 Total Protein 7.1 g/dL (5.8-8.3) 02/28/17 08:44 Albumin 3.5 g/dL (3.0-4.8) 02/28/17 08:44 Globulin 3.7 gm/dL 02/28/17 08:44 Albumin/Globulin Ratio 0.9 (1.1-1.8) L 02/28/17 08:44 Attending/Attestation - Attestation I have personally seen and examined this patient.: Yes I have fully participated in the care of the patient.: Yes I have reviewed all pertinent clinical information, including history, physical exam and plan: Yes Notes (Text): Patient seen and examined with resident in TCU. This is a 71 year old male with past medical history of severe COPD (on 4L of O2 at home), pulmonary hypertension, obstructive sleep apnea, psoriasis, HTN, NDDM and CAD (s/p stents ) and being legally blind who got admitted for copd exacerbation. Patient is feeling much better and will be discharged today. Continue oxygen during daytime and BiPAP at night. He will be discahrged on prednisone taper. Patient is DNI DNR. Long-term prognosis is poor. Follow up with within 3-5days and Dr Hale within 2-3 weeks. Discussed with pmd and wax room supervisor in detail. Dr Jamie Fairchild
== END 2017-03-04 16:00 | disposition home health service (06) | DRG 190 ==
LOC: TRCU 19:35
PROVIDERS: ADMIT Hospitalist; ATTEND Hospitalist
DX: J44.1 Chronic obstructive pulmonary disease with (acute) exacerbation (principal); J18.9 Pneumonia, unspecified organism; I47.2 Ventricular tachycardia; I50.30 Unspecified diastolic (congestive) heart failure; I11.0 Hypertensive heart disease with heart failure; J44.0 Chronic obstructive pulmonary disease with (acute) lower respiratory infection; I27.2 Other secondary pulmonary hypertension; E11.9 Type 2 diabetes mellitus without complications; I25.10 Atherosclerotic heart disease of native coronary artery without angina pectoris; H54.8 Legal blindness, as defined in USA; G47.33 Obstructive sleep apnea (adult) (pediatric); Z66 Do not resuscitate; L40.9 Psoriasis, unspecified; I07.1 Rheumatic tricuspid insufficiency; F41.9 Anxiety disorder, unspecified; K59.00 Constipation, unspecified; Z95.5 Presence of coronary angioplasty implant and graft; Z79.84 Long term (current) use of oral hypoglycemic drugs; Z99.81 Dependence on supplemental oxygen

== ENCOUNTER 2017-04-28 13:16 | Inpatient (IN) | payer MEDICARE ==
[2017-04-28 13:26] VITALS: BMI 28.0
[2017-04-28] MEDS ORDERED: Levalbuterol 1.25 MG/3 ML Inhal Soln UD IH STA ×2 (13:37)
[2017-04-28] MEDS ORDERED: Ipratropium 0.02% Inhal Soln (0.5 mg/2.5 ml) UD IH STA ×2 (13:37)
[2017-04-28] MEDS ORDERED: guaiFENesin 200 mg/10 ml Syrup UD PO STA (13:38)
--- NOTE | 2017-04-28 13:44 | ED PDOC ---
Arrival/HPI - General Chief Complaint: Shortness Of Breath Time Seen by Provider: 04/28/17 13:20 Historian: Patient - History of Present Illness Narrative History of Present Illness (Text): 04/28/17 13:30 A 71 year old male, whose past medical history includes severe COPD (on home O2) , Pulmonary hypertension, SARBJIT, CAD with stents, DM, and legal blindness is brought into the emergency department for complaints of chest pain since this morning. According to patient niece the patient was in his usual state of health until symptoms developed later in the morning. Patient notes a chronic cough and shortness of breath. He othewise says he does not know why he is here. Per family, the patient has been talking strangely today. He denies any fever, chills, nausea, vomiting, abdominal pain, or other complaints at this time. PMD: Dr. Ambrocio Time/Duration: 1-3 hours Symptom Onset: Sudden Symptom Course: Unchanged Quality: Other Activities at Onset: Rest Context: Home Past Medical History - Provider Review Nursing Documentation Reviewed: Yes - Infectious Disease Hx of Infectious Diseases: None - Tetanus Immunization Tetanus Immunization: Up to Date - Reproductive Currently : No Currently Lactating: No - Cardiac Hx Hypertension: Yes - Pulmonary Hx Chronic Obstructive Pulmonary Disease (COPD): Yes (end stage) - Neurological Hx Neurological Disorder: Yes (Blind since the age of 1.) - HEENT Hx Blind: Yes (since age 1) - Renal Hx Renal Failure: Yes - Endocrine/Metabolic Hx Diabetes Mellitus Type 2: Yes (niddm) - Hematological/Oncological Hx Blood Disorders: Yes Hx Cancer: Yes (lung mass) - Integumentary Hx Dermatological Disorder: Yes (Reddened, flush skin, dry and taut. Thickened, whitish-yellowish skin patch) Hx Psoriasis: Yes Other/Comment: Generalized body surface area, including extremities and torso with reddened, flushed skin with dry, whitish-yellow, thick, scaly, flaky patches. - Musculoskeletal/Rheumatological Hx Falls: Yes (past) - Gastrointestinal Hx Gastrointestinal Disorders: Yes (reflux) - Genitourinary/Gynecological Hx Genitourinary Disorders: Yes Hx Reproductive Disorders: No Other/Comment: urinary urgency/frequency - Psychiatric Hx Psychophysiologic Disorder: Yes Hx Anxiety: Yes Hx Depression: Yes Hx Substance Use: No - Surgical History Hx Appendectomy: Yes - Anesthesia Hx Anesthesia Reactions: No Hx Malignant Hyperthermia: No - Suicidal Assessment Feels Threatened In Home Enviroment: No Family/Social History - Physician Review Nursing Documentation Reviewed: Yes Family/Social History: Unknown Family HX Smoking Status: Former Smoker Hx Alcohol Use: No Hx Substance Use: No Hx Substance Use Treatment: No Allergies/Home Meds Allergies/Adverse Reactions: Allergies No Known Allergies Allergy (Verified 03/02/17 06:11) Review of Systems - Physician Review All systems were reviewed & negative as marked: Yes - Review of Systems Constitutional: absent: Fevers Respiratory: SOB, Cough Cardiovascular: Chest Pain Gastrointestinal: absent: Abdominal Pain, Diarrhea, Nausea, Vomiting Neurological: absent: Headache, Dizziness Physical Exam Vital Signs Reviewed: Yes Vital Signs Temp Pulse Resp BP Pulse Ox 04/28/17 16:24 98.7 F 91 H 17 105/67 97 04/28/17 14:20 101.9 F H 04/28/17 13:57 19 88 L 04/28/17 13:16 108 H 27 H 107/55 L 89 L Temperature: Febrile Blood Pressure: Hypotensive Pulse: Tachycardic Respiratory Rate: Tachypneic Appearance: Positive for: Ill-Appearing Pain Distress: None Mental Status: Positive for: Confused (somnolent but fully arousable, oriented to person, place, but not to time) - Systems Exam Head: Present: Atraumatic, Normocephalic Pupils: Present: PERRL Conjunctiva: Present: Normal Mouth: Present: Moist Mucous Membranes Pharnyx: Present: Normal. No: ERYTHEMA Neck: Present: Normal Range of Motion Respiratory/Chest: Present: Wheezes (scattered wheezing at the bilateral bases) , Decreased Breath Sounds, Tachypneic. No: Respiratory Distress, Accessory Muscle Use Cardiovascular: Present: Normal S1, S2, Tachycardic. No: Murmurs Abdomen: Present: Normal Bowel Sounds. No: Tenderness, Distention, Peritoneal Signs Back: Present: Normal Inspection Upper Extremity: Present: Normal Inspection. No: Cyanosis, Edema Lower Extremity: Present: Normal Inspection. No: Edema Neurological: Present: GCS=15, CN II-XII Intact, Speech Normal Skin: Present: Warm, Dry, Normal Color. No: Rashes Psychiatric: Present: Alert, Oriented x 3, Normal Insight, Normal Concentration Medical Decision Making ED Course and Treatment: 04/28/17 13:43 Impression: A 71 year old male with chest pain. On physical examination the patient has decreased breath sound and scattered wheezing at the bilateral bases. Differential Diagnosis include but are not limited to: ACS vs. COPD exacerbation Plan: -- EKG -- Chest X-ray -- Labs -- Urinalysis -- Atrovent, Robitussin, Solu-Medrol, Xopenex -- Reassess and disposition Prior Visits: Notes and results from previous visits were reviewed. The patient last presented to the emergency department on 02/22/17 for evaluation of generalized weakness and shortness of breath. Progress Notes: EKG: Ordered, reviewed, and independently interpreted the EKG. Rate : 107 BPM Rhythm : Sinus tachycardia Interpretation : Normal intervals, normal axis, nonspecific ST/T changes Comparison : No change from previous EKG on 02/22/17 for comparison. 04/28/17 15:01 Chest X-ray: Dictator : Tremaine Parr MD COMPARISON: 02/26/2017 FINDINGS: LUNGS: Examination grossly limited due to oblique positioning and obscuring of the lung apices but the patient's mandible. No pulmonary infiltrate identified. PLEURA: No significant pleural effusion identified, no pneumothorax apparent. CARDIOVASCULAR: Mild cardiomegaly. Pulmonary vascular congestion. OSSEOUS STRUCTURES: No significant abnormalities. VISUALIZED UPPER ABDOMEN: Normal. OTHER FINDINGS: None. IMPRESSION: Limited examination. Mild cardiomegaly with pulmonary vascular congestion. 04/28/17 15:26 Patient was also noted to have a fever; will add blood and urine cultures, give tylenol, check ABG with lactate, and start antibiotics. ABG showing normal lactic acid, so no code sepsis. PC02 is >100 but minimal acidosis with PH of 7.33 and patient is fully arousable, so will start Bipap. 04/28/17 17:38 Patient is more awake now. Repeat blood gas showing pH of 7.37 with PC02 down to 97; Dr. Mcghee discussed the case with Dr. Chisholm, who said that given that patient is awake and no acidotic, he does not need the ICU services at this time. He is hemodynamically stable. Case also discussed with Dr. Edmond for pulmonary consult. The patient will be admitted to the hospitalist's service. - Critical Care Critical Care Minutes: 30 minutes, 45 minutes - Lab Interpretations Lab Results: 04/28/17 13:40 04/28/17 13:40 Lab Results 04/28/17 13:40: Sodium 143, Potassium 4.4, Chloride 88 L, Carbon Dioxide 49 H D , Anion Gap 10, BUN 17, Creatinine 0.9, Est GFR ( Amer) > 60, Est GFR ( Non-Af Amer) > 60, Random Glucose 123 H, Calcium 9.2, Total Bilirubin 0.5, AST 25, ALT 32, Alkaline Phosphatase 67, Lactate Dehydrogenase 356, Total Creatine Kinase 26 L, Troponin I < 0.01, NT-Pro-B Natriuret Pep 514 H, Total Protein 7.5 , Albumin 3.8, Globulin 3.7, Albumin/Globulin Ratio 1.0 L, Lipase 51 04/28/17 13:40: PT 10.7, INR 0.99, APTT 27.1 04/28/17 13:40: WBC 9.6, RBC 4.73, Hgb 11.6 L, Hct 43.5, MCV 92.0, MCH 24.5 L, MCHC 26.7 L, RDW 15.7 H, Plt Count 208, MPV 10.2, Gran % 73.4 H, Lymph % (Auto) 14.7 L, [place] % (Auto) 8.9 H, Eos % (Auto) 2.8, Baso % (Auto) 0.2, Gran # 7.04 H , Lymph # 1.4, [place] # 0.9 H, Eos # 0.3, Baso # 0.02 I have reviewed the lab results: Yes - RAD Interpretation Radiology Orders: 04/28/17 13:36 CHEST PORTABLE [RAD] Stat - Medication Orders Current Medication Orders: Acetaminophen (Tylenol 325mg Tab) 650 mg PO Q6 PRN PRN Reason: mild pain or fever Albuterol/Ipratropium (Duoneb 3 Mg/0.5 Mg (3 Ml) Ud) 3 ml IH [id number] PRN PRN Reason: SOB Stop: 04/29/17 03:31 Alprazolam (Xanax) 0.25 mg PO BID PRN; Protocol PRN Reason: Anxiety Stop: 05/05/17 16:36 Arformoterol Tartrate (Brovana) 15 mcg IH [id number] [facility] Aspirin (Aspirin Chewable) 81 mg PO DAILY [place] Budesonide (Pulmicort Respules) 0.5 mg IH [id number] [place] Diltiazem HCl (Cardizem Cd) 300 mg PO DAILY [facility] Docusate Sodium (Colace) 100 mg PO DAILY [place] Enoxaparin Sodium (Lovenox) 40 mg SC DAILY [place] PRN Reason: Protocol Furosemide (Lasix) 40 mg IVP Q12 [place] Piperacillin Sod/Tazobactam Sod (Zosyn 3.375 In Ns 100ml) 100 mls @ 200 mls/hr IVPB Q6 [place] PRN Reason: Protocol Stop: 04/29/17 00:29 Insulin Human Lispro (Humalog Med) 0 units SC ACHS [place] PRN Reason: Protocol Methylprednisolone (Solu-Medrol) 40 mg IVP Q12 [place] Pantoprazole Sodium (Protonix Ec Tab) 40 mg PO ACB [facility] Roflumilast (Daliresp) 500 mcg PO DAILY [place] Discontinued Medications Acetaminophen (Tylenol 325mg Tab) 975 mg PO STAT STA Stop: 04/28/17 15:05 Last Admin: 04/28/17 15:36 Dose: 975 mg Acetaminophen (Tylenol 325mg Tab) 975 mg PO STAT STA Stop: 04/28/17 15:05 Last Admin: 04/28/17 15:37 Dose: Guaifenesin (Robitussin) 400 mg PO ONCE STA Stop: 04/28/17 13:39 Last Admin: 04/28/17 13:50 Dose: 400 mg Levofloxacin/Dextrose (Levaquin 750mg) 750 mg in 150 mls @ 100 mls/hr IVPB STAT STA Stop: 04/28/17 15:50 Last Admin: 04/28/17 14:50 Dose: 100 mls/hr Cefepime HCl (Maxipime 1gm) 1 gm in 100 mls @ 100 mls/hr IVPB ONCE ONE PRN Reason: Protocol Stop: 04/28/17 16:14 Last Admin: 04/28/17 16:57 Dose: 100 mls/hr Vancomycin HCl 1 gm/ Sodium (Chloride) 250 mls @ 133.333 mls/hr IV STAT STA PRN Reason: Protocol Stop: 04/28/17 16:54 Ipratropium [place] (Atrovent) 0.5 mg IH STAT STA Stop: 04/28/17 13:38 Last Admin: 04/28/17 13:50 Dose: 0.5 mg Ipratropium [place] (Atrovent) 0.5 mg IH STAT STA Stop: 04/28/17 13:38 Last Admin: 04/28/17 13:51 Dose: 0.5 mg Levalbuterol HCl (Xopenex) 1.25 mg IH STAT STA Stop: 04/28/17 13:38 Last Admin: 04/28/17 13:51 Dose: 1.25 mg Levalbuterol HCl (Xopenex) 1.25 mg IH STAT STA Stop: 04/28/17 13:38 Last Admin: 04/28/17 13:50 Dose: 1.25 mg Methylprednisolone (Solu-Medrol) 125 mg IVP STAT STA Stop: 04/28/17 13:38 Last Admin: 04/28/17 13:50 Dose: 125 mg - Scribe Statement The provider has reviewed the documentation as recorded by the Elizabeth Jones Provider Scribe Attestation: All medical record entries made by the Elizabeth were at my direction and personally dictated by me. I have reviewed the chart and agree that the record accurately reflects my personal performance of the history, physical exam, medical decision making, and the department course for this patient. I have also personally directed, reviewed, and agree with the discharge instructions and disposition. Disposition/Present on Arrival - Present on Arrival Any Indicators Present on Arrival: Yes History of DVT/PE: No History of Uncontrolled Diabetes: Yes Urinary Catheter: No History of Decub. Ulcer: No History Surgical Site Infection Following: None - Disposition Have Diagnosis and Disposition been Completed?: Yes Diagnosis: COPD exacerbation, Altered mental status, Hypercapnia, Fever Disposition: HOSPITALIZED Disposition Time: 15:05 Patient Plan: Admission, Telemetry Patient Problems: Current Active Problems Problem Status Onset Altered mental status Acute COPD exacerbation Acute Fever Acute Hypercapnia Acute Condition: FAIR
[2017-04-28 13:48] LABS: ADD MANUAL DIFF? NO
[2017-04-28 13:53] LABS: BASO # 0.02 K/mm3 (0.0-2.0); BASO % 0.2 % (0.0-3.0); EOS # 0.3 (0.0-0.7); EOS % 2.8 % (1.5-5.0); GRAN # 7.04 (1.4-6.5); GRAN % 73.4 % (50.0-68.0); HEMATOCRIT 43.5 % (42.0-52.0); LYMPH # 1.4 (1.2-3.4); LYMPH % 14.7 % (22.0-35.0); MEAN CORPUSCULAR HEMOGLOBIN 24.5 pg (25.0-35.0); MEAN CORPUSCULAR HGB CONC 26.7 g/dl (31.0-37.0); MEAN PLATELET VOLUME 10.2 fl (7.0-11.0); MONO # 0.9 (0.1-0.6); MONO % 8.9 % (1.0-6.0); PLATELET COUNT 208 10^3/uL (120.0-450.0); RED CELL DISTRIBUTION WIDTH 15.7 % (11.5-14.5); WHITE BLOOD COUNT 9.6 10^3/ul (4.5-11.0)
[2017-04-28 14:04] LABS: ALKALINE PHOSPHATASE 67 U/L (38-133); ALT/SGPT 32 U/L (7-56); AST/SGOT 25 U/L (15-59); BILIRUBIN,TOTAL 0.5 mg/dL (0.2-1.3); BLOOD UREA NITROGEN 17 mg/dL (7-21); CALCIUM 9.2 mg/dL (8.4-10.5); CHLORIDE 88 mmol/L (98-107); GFR AFRICAN-AMERICAN > 60; GLUCOSE,RANDOM 123 mg/dL (70-110); LIPASE 51 U/L (23-300); POTASSIUM 4.4 mmol/L (3.6-5.0); SODIUM 143 mmol/L (132-148); TOTAL PROTEIN 7.5 g/dL (5.8-8.3)
[2017-04-28 14:06] LABS: INR 0.99 (0.93-1.08); PARTIAL THROMBOPLASTIN TIME 27.1 Seconds (23.7-30.8)
[2017-04-28 14:11] LABS: CARBON DIOXIDE 49 mmol/L (21-33)
[2017-04-28 14:17] LABS: TROPONIN I < 0.01 ng/mL
[2017-04-28] MEDS ORDERED: levoFLOXacin 750 mg in D5W 750 MG/150 ML BAG IVPB STA (14:21)
--- NOTE | 2017-04-28 15:01 | RAD ---
HISTORY: sob COMPARISON: 02/26/2017 FINDINGS: LUNGS: Examination grossly limited due to oblique positioning and obscuring of the lung apices but the patient's mandible. No pulmonary infiltrate identified. PLEURA: No significant pleural effusion identified, no pneumothorax apparent. CARDIOVASCULAR: Mild cardiomegaly. Pulmonary vascular congestion. OSSEOUS STRUCTURES: No significant abnormalities. VISUALIZED UPPER ABDOMEN: Normal. OTHER FINDINGS: None. IMPRESSION: Limited examination. Mild cardiomegaly with pulmonary vascular congestion.
[2017-04-28] MEDS ORDERED: Cefepime 1gm in NS 100ml 1 GM/100 ML BAG IVPB ONE (15:15)
[2017-04-28 15:28] LABS: ARTERIAL BLOOD GAS HCO3 52.7 mmol/L (21-28); ARTERIAL BLOOD GAS PH 7.33 (7.35-7.45)
[2017-04-28] MEDS ORDERED: Albuterol-Ipratrop 3 mg / 0.5 (3 ml) UD IH PRN (16:40)
--- NOTE | 2017-04-28 17:21 | CARD ---
APPROVED REPORT EKG Measurement Heart [id number] CT [id number] <Conclusion> Sinus tachycardia Cannot rule out Anterior infarct, age undetermined ST & T wave abnormality, consider lateral ischemia Abnormal ECG
[2017-04-28 17:24] LABS: ARTERIAL BLOOD GAS HCO3 56.1 mmol/L (21-28); ARTERIAL BLOOD GAS O2 CAPACITY 14.3 mL/dl (16-24); ARTERIAL BLOOD GAS O2 CONTENT 12.8 ML/dl (15-23); ARTERIAL BLOOD GAS PH 7.37 (7.35-7.45); ARTERIAL BLOOD HGB O2 SAT 85.7 % (95.0-98.0); CARBOXYHEMOGLOBIN 3.2 % (0.5-1.5); HHB 9.9 % (0-5); METHEMOGLOBIN 1.3 % (0.0-3.0)
--- NOTE | 2017-04-28 17:49 | CP.PCM.HP ---
<Severo Pratt - Last Filed: 04/28/17 17:42> History of Present Illness - History of Present Illness History of Present Illness: This is a 71 y/o male with hx COPD, PH, SARBJIT, CAD with stents, DM, legally blind presenting with complaints of shortness of breath and chest discomfort. POA is at bedside stating the patient has not been his normal self at home noting a change in mental status. Family notes he is forgetting the names of other family members. They also report the patient has been lethargic and has been refusing to take his nebulizer treatments at home. The patient is on home O2 and is severely limited by is pulmonary disease. Family denies any recent illness including diarrhea, urinary changes, abdominal pain, vomiting, fever or chills. On evaluation in the ED after about 1 hour on BPAP the patient is awake and alert. He is answering questions appropriately. PMH: as stated above. Fhx: non-contributory Surgical hx: cholecystectomy Social hx: lives with nieces with home care. former smoker 2ppd for 40 years, quit about 5 years ago. Former alcohol use, quit about 1 year ago Allergies: NKDA Present on Admission - Present on Admission Any Indicators Present on Admission: No Review of Systems - Constitutional Constitutional: absent: Chills, Fever, Malaise - EENT Ears: absent: Ear Pain, Dizziness Nose/Mouth/Throat: absent: Nasal Congestion, Nasal Discharge, Sore Throat - Cardiovascular Cardiovascular: Chest Pain, Dyspnea, Dyspnea on Exertion. absent: Pedal Edema - Respiratory Respiratory: Cough, Dyspnea on Exertion. absent: Hemoptysis - Gastrointestinal Gastrointestinal: absent: Abdominal Pain, Diarrhea, Melena, Nausea, Vomiting - Genitourinary Genitourinary: absent: Dysuria, Hematuria - Musculoskeletal Musculoskeletal: absent: Back Pain, Neck Pain - Integumentary Integumentary: absent: Pruritus, Rash - Neurological Neurological: Confusion. absent: Dizziness, Focal Weakness, Headaches - Psychiatric Psychiatric: absent: Anxiety, Depression Past Patient History - Infectious Disease Hx of Infectious Diseases: None - Tetanus Immunizations Tetanus Immunization: Up to Date - Past Social History Smoking Status: Former Smoker - CARDIAC Hx Hypertension: Yes - PULMONARY Hx Chronic Obstructive Pulmonary Disease (COPD): Yes (end stage) - NEUROLOGICAL Hx Neurological Disorder: Yes (Blind since the age of 1.) - HEENT Hx Blind: Yes (since age 1) - RENAL Hx Renal Failure: Yes - ENDOCRINE/METABOLIC Hx Diabetes Mellitus Type 2: Yes (niddm) - HEMATOLOGICAL/ONCOLOGICAL Hx Blood Disorders: Yes Hx Cancer: Yes (lung mass) - INTEGUMENTARY Hx Dermatological Problems: Yes (Reddened, flush skin, dry and taut. Thickened, whitish-yellowish skin patch) Hx Psoriasis: Yes Other/Comment: Generalized body surface area, including extremities and torso with reddened, flushed skin with dry, whitish-yellow, thick, scaly, flaky patches. - MUSCULOSKELETAL/RHEUMATOLOGICAL Hx Falls: Yes (past) - GASTROINTESTINAL Hx Gastrointestinal Disorders: Yes (reflux) - GENITOURINARY/GYNECOLOGICAL Hx Genitourinary Disorders: Yes Hx Reproductive Disorders: No Other/Comment: urinary urgency/frequency - PSYCHIATRIC Hx Psychophysiologic Disorder: Yes Hx Anxiety: Yes Hx Depression: Yes Hx Substance Use: No - SURGICAL HISTORY Hx Appendectomy: Yes - ANESTHESIA Hx Anesthesia Reactions: No Hx Malignant Hyperthermia: No Meds Allergies/Adverse Reactions: Allergies Allergy/AdvReac Type Severity Reaction Status Date / Time No Known Allergies Allergy Verified 03/02/17 06:11 Physical Exam - Constitutional Appears: Non-toxic - Head Exam Head Exam: ATRAUMATIC, NORMOCEPHALIC - Eye Exam Eye Exam: EOMI, PERRL - ENT Exam ENT Exam: Mucous Membranes Dry - Neck Exam Neck exam: Positive for: Normal Inspection - Respiratory Exam Respiratory Exam: Wheezes (scattered b/l ), Respiratory Distress. absent: Rales - Cardiovascular Exam Cardiovascular Exam: REGULAR RHYTHM, +S1, +S2 - GI/Abdominal Exam GI & Abdominal Exam: Normal Bowel Sounds, Soft. absent: Tenderness - Extremities Exam Extremities exam: Negative for: calf tenderness, pedal edema - Neurological Exam Neurological exam: Alert, Oriented x3 - Skin Skin Exam: Dry, Warm Results - Vital Signs Recent Vital Signs: Last Vital Signs Temp 98.7 F 04/28/17 16:24 Pulse 91 H 04/28/17 16:24 Resp 17 04/28/17 16:24 BP 105/67 04/28/17 16:24 Pulse Ox 97 04/28/17 16:24 - Labs Result Diagrams: 04/28/17 13:40 04/28/17 13:40 Labs: Laboratory Results - last 24 hr 04/28/17 04/28/17 15:23 17:22 pCO2 100 H* 97 H* pO2 43.0 L* 50.0 L HCO3 52.7 H* 56.1 H* ABG pH 7.33 L 7.37 ABG Total CO2 55.8 H 59.1 H ABG O2 Saturation 82.1 L 89.6 L ABG O2 Content 12.8 L ABG Base Excess 22.5 H 26.1 H ABG Hemoglobin 10.6 L ABG Carboxyhemoglobin 3.2 H POC ABG HHb (Measured) 9.9 H ABG Methemoglobin 1.3 ABG O2 Capacity 14.3 L ABG Potassium 4.1 Hgb O2 Saturation 85.7 L Sodium 142.0 Chloride 99.0 Glucose 118 H Lactate 0.4 L FiO2 34.0 40.0 Arterial Blood Potassium 4.1 Assessment & Plan - Assessment and Plan (Free Text) Assessment: 71 y/o male with hx of severe COPD, CAD, DM, blindness presenting with hypercapnic respiratory failure secondary to COPD exacerbation complicated by hypercapnic encephalopathy. COPD exacerbataion - Vancomycin, Zosyn - solumedrol 40 q12 - xopene, q4hr PRN - continue BPAP at night - f/u ABG tonight - ICU eval - patient is DNR/DNI. He will be admitted to telemetry - pulmonary consulted Sepsis syndrome 2/2 possible HCAP - continue Vanc, zosyn as above - ID consulted - procalcitonin - legionella serology, strep serology - urine, blood cx Pulmonary edema with hx diastolic dysfunction - lasix 40 IV BID - cardiology consulted - monitor fluid status hx CAD - continue home medications DM2 - hold metformin - SSI - Med - fingersticks ACHS PPX - lovenox sc, scd's - protonix 40 daily <Taz PAIZ,Cherrie - Last Filed: 05/01/17 12:51> Results - Vital Signs Recent Vital Signs: Last Vital Signs Temp 98.4 F 05/01/17 11:58 Pulse 82 05/01/17 11:58 Resp 20 05/01/17 11:58 BP 116/68 05/01/17 11:58 Pulse Ox 96 05/01/17 06:00 - Labs Result Diagrams: 05/01/17 05:30 05/01/17 05:30 Labs: Laboratory Results - last 24 hr 04/30/17 04/30/17 05/01/17 16:31 21:23 05:30 WBC 12.5 H RBC 4.98 Hgb 12.1 L Hct 42.0 MCV 84.3 MCH 24.3 L MCHC 28.8 L RDW 15.9 H Plt Count 244 MPV 10.3 Gran % 84.2 H Lymph % (Auto) 7.5 L [place] % (Auto) 8.3 H Eos % (Auto) 0.0 L Baso % (Auto) 0.0 Gran # 10.50 H Lymph # 0.9 L [place] # 1.0 H Eos # 0.0 Baso # 0.00 Sodium Potassium Chloride Carbon Dioxide Anion Gap BUN Creatinine Est GFR ( Amer) Est GFR (Non-Af Amer) POC Glucose (mg/dL) 293 H 105 Random Glucose Calcium Total Bilirubin AST ALT Alkaline Phosphatase Total Protein Albumin Globulin Albumin/Globulin Ratio 05/01/17 05/01/17 05/01/17 05:30 07:17 11:23 WBC RBC Hgb Hct MCV MCH MCHC RDW Plt Count MPV Gran % Lymph % (Auto) [place] % (Auto) Eos % (Auto) Baso % (Auto) Gran # Lymph # [place] # Eos # Baso # Sodium 139 Potassium 4.1 Chloride 87 L Carbon Dioxide 41 H Anion Gap 15 BUN 28 H Creatinine 1.0 Est GFR ( Amer) > 60 Est GFR (Non-Af Amer) > 60 POC Glucose (mg/dL) 151 H 129 H Random Glucose 149 H Calcium 9.0 Total Bilirubin 0.4 AST 31 ALT 29 Alkaline Phosphatase 64 Total Protein 7.3 Albumin 3.9 Globulin 3.4 Albumin/Globulin Ratio 1.1 Attending/Attestation - Attestation I have personally seen and examined this patient.: Yes I have fully participated in the care of the patient.: Yes I have reviewed all pertinent clinical information: Yes Notes (Text): 05/01/17 12:44 Patient was seen and examined with medical technical writer. 71 Yrs old male with PMH of End satge COPD, Chronic hypoxic hypercapnic Resp Failure on home oxygen and BIPAP at home ,HTN,NIDDM is admitted with acute on chronic hypercapnic hypoxic Resp Failure.Patient is legally blind but able to communicate, alert and oriented, will start on BIPAP, NEB and IV steroid.We will also start on antibiotics for Pneumonia.We will check procalcitonin level and will follow up culture.We will also get Pulmonary and ID consult. Prognosis is guarded. Management plan was discussed in detail with patient and family.Education was provided
[2017-04-28] MEDS ORDERED: Levalbuterol 0.63 MG/3 ML Inhal Soln UD IH PRN (17:59)
[2017-04-28] MEDS ORDERED: Piperacillin/Tazobact 3.375 gm 100 ML IVPB SCH (18:00)
[2017-04-28] MEDS: Budesonide 0.5 mg/2 ml Inhal Susp UD IH SCH (20:05)
[2017-04-28] MEDS: Arformoterol 15 mcg/2 ml Inh Sol IH SCH (20:05)
[2017-04-28] MEDS: Cefepime 1gm in NS 100ml 1 GM/100 ML BAG IVPB SCH (23:06)
[2017-04-28] MEDS: MethylPREDNISolone 40 mg Vial IVP SCH (23:41)
[2017-04-28] MEDS: Insulin Lispro (humaLOG) MEDIUM Coverage SC SCH (23:43)
[2017-04-29] MEDS ORDERED: DiphenhydrAMINE 50 mg/ml Inj IVP STA (01:11)
[2017-04-29] MEDS: Cefepime 1gm in NS 100ml 1 GM/100 ML BAG IVPB SCH ×3 (05:21→21:50)
[2017-04-29] MEDS ORDERED: Levalbuterol 0.63 MG/3 ML Inhal Soln UD IH PRN (06:57)
[2017-04-29 07:20] LABS: URINE BILIRUBIN NEGATIVE (NEGATIVE); URINE BLOOD NEGATIVE (NEGATIVE); URINE GLUCOSE (UA) NEGATIVE (NEGATIVE); URINE KETONE NEGATIVE (NEGATIVE); URINE LEUKOCYTE ESTERASE NEGATIVE Leu/uL (NEGATIVE); URINE PROTEIN NEGATIVE mg/dL (<30 mg/dL); URINE UROBILINOGEN 0.2 E.U./dL (<1 E.U./dL)
[2017-04-29 07:23] LABS: URINE APPEARANCE CLEAR (CLEAR); URINE COLOR YELLOW (YELLOW)
[2017-04-29] MEDS: Budesonide 0.5 mg/2 ml Inhal Susp UD IH SCH ×2 (07:42→19:12)
[2017-04-29] MEDS: Arformoterol 15 mcg/2 ml Inh Sol IH SCH ×2 (07:42→19:12)
[2017-04-29] MEDS: Levalbuterol 0.63 MG/3 ML Inhal Soln UD IH SCH ×2 (07:43→13:26)
[2017-04-29] MEDS: Insulin Lispro (humaLOG) MEDIUM Coverage SC SCH ×4 (07:48→23:19)
[2017-04-29] MEDS: Pantoprazole 40 mg EC Tab PO SCH (07:49)
[2017-04-29 08:25] LABS: ADD MANUAL DIFF? NO
[2017-04-29 08:28] LABS: BASO # 0.01 K/mm3 (0.0-2.0); BASO % 0.1 % (0.0-3.0); GRAN # 6.09 (1.4-6.5); GRAN % 83.3 % (50.0-68.0); HEMATOCRIT 40.8 % (42.0-52.0); LYMPH # 0.6 (1.2-3.4); LYMPH % 8.3 % (22.0-35.0); MEAN CELL VOLUME 88.1 fL (80.0-105.0); MEAN CORPUSCULAR HEMOGLOBIN 24.2 pg (25.0-35.0); MEAN CORPUSCULAR HGB CONC 27.5 g/dl (31.0-37.0); MONO # 0.6 (0.1-0.6); MONO % 8.3 % (1.0-6.0); PLATELET COUNT 182 10^3/uL (120.0-450.0); RED CELL DISTRIBUTION WIDTH 15.5 % (11.5-14.5); WHITE BLOOD COUNT 7.3 10^3/ul (4.5-11.0)
[2017-04-29 08:38] LABS: INR 1.02 (0.93-1.08); PARTIAL THROMBOPLASTIN TIME 26.8 Seconds (23.7-30.8)
[2017-04-29 08:43] LABS: ALB/GLOB RATIO 1.1 (1.1-1.8); ALKALINE PHOSPHATASE 63 U/L (38-133); ALT/SGPT 33 U/L (7-56); AST/SGOT 16 U/L (15-59); BILIRUBIN,TOTAL 0.3 mg/dL (0.2-1.3); BLOOD UREA NITROGEN 22 mg/dL (7-21); CALCIUM 8.7 mg/dL (8.4-10.5); CHLORIDE 91 mmol/L (95-110); GFR AFRICAN-AMERICAN > 60; GLUCOSE,RANDOM 133 mg/dL (70-110); POTASSIUM 4.6 mmol/L (3.6-5.0); SODIUM 141 mmol/L (132-148); TOTAL PROTEIN 6.6 g/dL (5.8-8.3)
[2017-04-29 09:06] LABS: CARBON DIOXIDE > 40 mmol/L (21-33)
--- NOTE | 2017-04-29 09:26 | CON ---
DATE: 04/29/2017 History is obtained via extensive discussion with the night nurse. I have also reviewed the chart at length and discussed the case with the patient at length. HISTORY OF PRESENT ILLNESS: The patient is a 71-year-old chronically ill male, with past medical history significant for end-stage chronic obstructive pulmonary disease -- on home oxygen, left upper lobe lung mass (family/patient refused workup in the past), obstructive sleep apnea, pulmonary hypertension, coronary artery disease, status post cardiac stents, chronic anemia, diabetes mellitus, legal blindness, who presents to [facility] with increasing lethargy for 1 day. Apparently, the patient was in his usual state of health until yesterday morning -- when he began to experience lethargy. As per the family, the patient was also talking strangely. In the Emergency Room, the patient was noted to be febrile(101,9). In addition, an arterial blood gas revealed a severe respiratory acidosis. The patient was thus admitted for additional evaluation. The patient denies shortness of breath at rest. He does have chronic dyspnea on exertion. He also has a chronic cough with some sputum production -- which he states has not changed. Again, I did review the Emergency Room notes. There is a notation by Dr. Thomson -- that the patient did experience chest pain at home. The patient denies chest pain at the time of my examination. There is no history of coughing up of blood. There is no history of chest pain -- made worse with deep respirations. As above, the patient did present with temperatures (101.9). No history of chills or infectious exposure. No history of night sweats, weight loss or appetite change prior to the above events. No history of leg or calf pains. No history of syncope or diaphoresis. No history of recent travel or trauma. REVIEW OF SYSTEMS: No history of nausea, vomiting or diarrhea. No acute urinary symptoms. No new musculoskeletal complaints. Rest of review of systems is negative. ALLERGIES: No known allergies. SOCIAL HISTORY: Positive for extensive tobacco usage. No alcohol. FAMILY HISTORY: No inheritable diseases. HOME MEDICATIONS: Include Cardizem, Janumet, Daliresp, Protonix, Medrol, Lasix , Colace, Pulmicort, Tracleer, aspirin, Brovana, Xanax. PHYSICAL EXAMINATION: GENERAL: The patient is awake and alert this morning. He is conversive. He is not lethargic. He is not short of breath at rest. VITAL SIGNS: Temperature is 98.7, pulse 64, respirations 18, blood pressure 142 /65. Oxygen saturations-- last measured on BiPAP -- 97%. HEENT: Normocephalic, atraumatic. NECK: No JVD. CARDIOVASCULAR: Systolic ejection murmur at the lower left sternal border. No S3 gallop. LUNGS: Decreased breath sounds at the bases. Minimal rhonchi. Minimal wheezing. EXTREMITIES: Mild edema. No cyanosis, no clubbing. Calves are nontender to palpation. GASTROINTESTINAL: Abdomen is soft, nontender, nondistended. Bowel sounds are positive. SKIN: No acute rash. NEUROLOGIC: Limited at the present time. PERTINENT LABORATORY DATA: Chest x-ray was done yesterday and reviewed. The chest x-ray done yesterday is not significantly changed from the previous film. The chest x-ray includes findings of chronic changes bilaterally with a left upper lobe lung mass. Arterial blood gas was done on BiPAP with 40% oxygen. Results are: pH 7.37, pCO2 of 97, pO2 of 50. Initial arterial blood gas: pH 7.33, pCO2 of 100, pO2 of 43. CBC: White count 9.6, hemoglobin 11.6, hematocrit 43.5, platelets of 208. Complete metabolic profile: Chloride 88, carbon dioxide 49, glucose 123. B-type natriuretic peptide 514. Procalcitonin less than 0.05. Rest of the metabolic profile is within normal limits. IMPRESSION: 1. Respiratory failure. 2. End-stage chronic obstructive pulmonary disease -- on home oxygen. 3. Sepsis syndrome. 4. Left upper lobe lung mass -- the patient/family refused workup in the past. 5. Obstructive sleep apnea. 6. Pulmonary hypertension. 7. Coronary artery disease. PLAN: I did discuss the case with the night nurse at length. I also discussed the case with the patient at length, and reviewed the chart at length. 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 In addition, he presented to the Emergency Room with fevers -- 101.9. Arterial blood gas was then done and showed a severe respiratory acidosis. The patient was thus admitted for additional evaluation. As above, the patient is awake and alert, conversive this morning. Last oxygen saturation measured on BiPAP -- 97%. He is currently on nasal cannula. On physical exam, there is mild bronchospasm noted. I will continue with the current nebulizer treatments and low-dose intravenous steroids for now. I did review the chest x-ray as above. The chest x-ray is not significantly changed from the previous film. In addition, the procalcitonin is negative. I would continue with the antibiotic coverage as per infectious disease. Input by Dr. Quarles is noted. Clinical status of this patient is certainly improved -- compared to yesterday. However, the overall status/prognosis for this patient remains poor. The patient is currently a DNR/DNI status. I have had innumerable discussions with the patient and his niece (power of deputy commonwealth's attorney). I will discuss the above with the attending physician this morning. Thank you very much for this pulmonary consultation. Fabricio Edmond MD cc: [id number] TT: 04/29/2017 09:25:11 Confirmation # [id number] Dictation # [id number] joaquin PICHARDO
[2017-04-29] MEDS: MethylPREDNISolone 40 mg Vial IVP SCH ×2 (09:54→21:49)
[2017-04-29] MEDS: Enoxaparin 40 mg Syringe SC SCH (09:54)
[2017-04-29] MEDS: diltiaZEM 300 mg/24 Hours CD Cap PO SCH (09:55)
--- NOTE | 2017-04-29 11:03 | CP.PCM.CON ---
History of Present Illness - History of Present Illness History of Present Illness: 71 year old male with PMH of HTN, COPD, GERD, coronary artery disease S/P PCI and stents placed, DM, obstructive sleep apnea was brought in to [facility] because of shortness of breath at rest and chest discomfort. He also has cough with whitish phlegm. Yesterday the patient was having difficulty breathing and had some delirium. He was placed on a BiPAP and immediately felt better. The patient denies fever or chills, no nausea or vomiting, no headache or dizziness, no diarrhea, no dysuria, no chest pain, no sore throat, no dysphagia. In the ED, CXR was done which did not show specific infiltrates. Infectious Diseases consult is requested to further evaluate and management. Review of Systems - Review of Systems All systems: reviewed and no additional remarkable complaints except (as per HPI ) Past Patient History - Infectious Disease Hx of Infectious Diseases: None - Tetanus Immunizations Tetanus Immunization: Up to Date - Past Social History Smoking Status: Former Smoker - CARDIAC Hx Hypertension: Yes - PULMONARY Hx Chronic Obstructive Pulmonary Disease (COPD): Yes (end stage) - NEUROLOGICAL Hx Neurological Disorder: Yes (Blind since the age of 1.) - HEENT Hx Blind: Yes (since age 1) - RENAL Hx Renal Failure: Yes - ENDOCRINE/METABOLIC Hx Diabetes Mellitus Type 2: Yes (niddm) - HEMATOLOGICAL/ONCOLOGICAL Hx Blood Disorders: Yes Hx Cancer: Yes (lung mass) - INTEGUMENTARY Hx Dermatological Problems: Yes (Reddened, flush skin, dry and taut. Thickened, whitish-yellowish skin patch) Hx Psoriasis: Yes Other/Comment: Generalized body surface area, including extremities and torso with reddened, flushed skin with dry, whitish-yellow, thick, scaly, flaky patches. - MUSCULOSKELETAL/RHEUMATOLOGICAL Hx Falls: Yes (past) - GASTROINTESTINAL Hx Gastrointestinal Disorders: Yes (reflux) - GENITOURINARY/GYNECOLOGICAL Hx Genitourinary Disorders: Yes Hx Reproductive Disorders: No Other/Comment: urinary urgency/frequency - PSYCHIATRIC Hx Psychophysiologic Disorder: Yes Hx Anxiety: Yes Hx Depression: Yes Hx Substance Use: No - SURGICAL HISTORY Hx Appendectomy: Yes - ANESTHESIA Hx Anesthesia Reactions: No Hx Malignant Hyperthermia: No Meds Allergies/Adverse Reactions: Allergies Allergy/AdvReac Type Severity Reaction Status Date / Time No Known Allergies Allergy Verified 04/24/17 06:11 - Medications Medications: Current Medications Acetaminophen (Tylenol 325mg Tab) 650 mg PO Q6 PRN PRN Reason: mild pain or fever Alprazolam (Xanax) 0.25 mg PO BID PRN; Protocol PRN Reason: Anxiety Stop: 05/05/17 16:36 Arformoterol Tartrate (Brovana) 15 mcg IH [id number] [facility] Aspirin (Aspirin Chewable) 81 mg PO DAILY [facility] Budesonide (Pulmicort Respules) 0.5 mg IH [id number] [facility] Diltiazem HCl (Cardizem Cd) 300 mg PO DAILY [facility] Docusate Sodium (Colace) 100 mg PO DAILY [facility] Enoxaparin Sodium (Lovenox) 40 mg SC DAILY [facility] PRN Reason: Protocol Furosemide (Lasix) 40 mg IVP Q12 [facility] Insulin Human Lispro (Humalog Med) 0 units SC ACHS [facility] PRN Reason: Protocol Levalbuterol HCl (Xopenex) 0.63 mg IH Q4H PRN PRN Reason: Shortness of Breath Methylprednisolone (Solu-Medrol) 40 mg IVP Q12 [facility] Pantoprazole Sodium (Protonix Ec Tab) 40 mg PO ACB [facility] Roflumilast (Daliresp) 500 mcg PO DAILY [facility] Physical Exam - Constitutional Appears: Non-toxic, No Acute Distress - Head Exam Head Exam: NORMAL INSPECTION - ENT Exam ENT Exam: Mucous Membranes Moist - Neck Exam Neck exam: Negative for: Lymphadenopathy, Meningismus - Respiratory Exam Respiratory Exam: Decreased Breath Sounds - Cardiovascular Exam Cardiovascular Exam: +S1, +S2 - GI/Abdominal Exam GI & Abdominal Exam: Soft. absent: Tenderness Results - Vital Signs Recent Vital Signs: Last Vital Signs Temp 98.7 F 04/28/17 16:24 Pulse 91 H 04/28/17 16:24 Resp 17 04/28/17 16:24 BP 105/67 04/28/17 16:24 Pulse Ox 97 04/28/17 16:24 - Labs Result Diagrams: 04/29/17 08:00 04/29/17 08:00 Labs: Laboratory Results - last 24 hr 04/28/17 04/28/17 15:23 17:22 pCO2 100 H* 97 H* pO2 43.0 L* 50.0 L HCO3 52.7 H* 56.1 H* ABG pH 7.33 L 7.37 ABG Total CO2 55.8 H 59.1 H ABG O2 Saturation 82.1 L 89.6 L ABG O2 Content 12.8 L ABG Base Excess 22.5 H 26.1 H ABG Hemoglobin 10.6 L ABG Carboxyhemoglobin 3.2 H POC ABG HHb (Measured) 9.9 H ABG Methemoglobin 1.3 ABG O2 Capacity 14.3 L ABG Potassium 4.1 Hgb O2 Saturation 85.7 L Sodium 142.0 Chloride 99.0 Glucose 118 H Lactate 0.4 L FiO2 34.0 40.0 Arterial Blood Potassium 4.1 Assessment & Plan - Assessment and Plan (Free Text) Plan: Assessment consider COPD exacerbation - no evidence of pneumonia on CXR and PCT is <0.05 HTN COPD GERD coronary artery disease S/P PCI and stents placed DM osbtructive sleep apnea Plan started patient on Cefepime and Doxycycline - should be a 3-5 day course will monitor clinical response
--- NOTE | 2017-04-29 11:53 | CON ---
DATE: 04/29/2017 REQUESTING PHYSICIAN: Dr. Reyes. REASON FOR CONSULTATION: Dyspnea. HISTORY OF PRESENT ILLNESS: This is a 71-year-old man known to us from prior admissions with a histo ry of severe COPD, prior nonsustained ventricular tachycardia, who presented to the Emergency Room wi acute respiratory distress yesterday. He also had some chest discomfort as well. He does have kn own coronary artery disease and has undergone prior cardiac stenting. He was treated aggressively wi respiratory therapy and is symptomatically improved today. He denies any chest pain at rest. PAST MEDICAL HISTORY: Notable for the problems mentioned above. He does have obstructive sleep apne a, pulmonary hypertension, COPD. He is legally blind. He has undergone a prior cholecystectomy. CURRENT MEDICATIONS: Include aspirin, Brovana, diltiazem 300 mg daily, Daliresp, doxycycline, insuli n coverage, Lasix 40 mg IV b.i.d., Lovenox, Maxipime, Protonix, Pulmicort inhaler, Solu-Medrol 40 mg q. 12 hours, Xanax p.r.n., Xopenex p.r.n. ALLERGIES: None. SOCIAL HISTORY: He is a former smoker of 2 packs per day for many years. He quit 5 years ago. He a lso has a history of alcohol abuse in the past. FAMILY HISTORY: Both parents are from age-related illness. REVIEW OF SYSTEMS: A 10-point review of systems is notable mainly for the problems mentioned above. PHYSICAL EXAMINATION: GENERAL: He is an overweight middle-aged man. VITAL SIGNS: His blood pressure 133/56 with a pulse of 64 in sinus, respirations are 16. He is afeb rile at present. Yesterday, his temperature was 101.9. HEENT: Normocephalic, atraumatic. NECK: Supple. JVD is present. CHEST: Bilateral rhonchi with diminished breath sounds noted. No rales heard. HEART: PMI displaced laterally with a systolic murmur at the lower left sternal border. ABDOMEN: Soft, obese, nontender, normoactive bowel sounds. EXTREMITIES: Trace ankle edema with mild cellulitic changes. SKIN: Warm and dry. PSYCHIATRIC: Normal mood and affect. NEUROLOGIC: Alert and oriented x 3. He is legally blind. DIAGNOSTIC DATA: Potassium 4.6, bicarbonate was initially 49 and repeat is still greater than 40, BU N and creatinine 22 and 0.9. White count 7.3, hemoglobin and hematocrit 11.2 and 40.8 with a platele t count 182,000. Recent arterial blood gas showed a pH of 7.37, pCO2 of 97 and pO2 of 50. Initial t roponin was negative with a CK of 26. IMPRESSION: 1. Severe chronic obstructive pulmonary disease exacerbation, clinically improved. 2. Advanced lung disease. 3. Coronary artery disease, status post remote percutaneous coronary intervention. No clinical evid ence of active cardiac ischemia. 4. Profound metabolic alkalosis. 5. Mild anemia. 6. Rest of problems as noted. RECOMMENDATIONS: Current medications should be continued. Old records will be reviewed. Avoidance of excessive volume infusion is advised. If not recently performed, an echocardiogram will be ping kapoor. Thank you for this consultation. I am happy to follow along through his hospital course. Severo Caldera MD cc: [id number] TT: 04/29/2017 11:52:52 Confirmation # [id number] Dictation # [id number] tn
--- NOTE | 2017-04-29 14:40 | CP.PCM.PN ---
<Severo Pratt - Last Filed: 04/30/17 12:44> Subjective - Date & Time of Evaluation Date of Evaluation: 04/29/17 Time of Evaluation: 14:36 - Subjective Subjective: Patient seen and examined. Respiratory status is improved as well as mental status. Patient is awake and alert, eating breakfast. Tolerated BPAP overnight. No acute events overnight. He denies any chest pain, abdominal pain, n/v/d. Objective - Vital Signs/Intake and Output Vital Signs (last 24 hours): Temp Pulse Resp BP Pulse Ox 98.2 F 77 20 156/87 H 97 04/29/17 13:03 04/29/17 12:00 04/29/17 12:00 04/29/17 12:00 04/28/17 16:24 Intake and Output: 04/29/17 04/29/17 06:59 18:59 Output Total 1600 Balance -1600 - Medications Medications: Current Medications Acetaminophen (Tylenol 325mg Tab) 650 mg PO Q6 PRN PRN Reason: mild pain or fever Last Admin: 04/29/17 13:03 Dose: 650 mg Alprazolam (Xanax) 0.25 mg PO BID PRN; Protocol PRN Reason: Anxiety Stop: 05/05/17 16:36 Arformoterol Tartrate (Brovana) 15 mcg IH [id number] REPLACED BY [facility] Last Admin: 04/29/17 07:42 Dose: 15 mcg Aspirin (Aspirin Chewable) 81 mg PO DAILY REPLACED BY [facility] Last Admin: 04/29/17 09:53 Dose: 81 mg Budesonide (Pulmicort Respules) 0.5 mg IH [id number] REPLACED BY [facility] Last Admin: 04/29/17 07:42 Dose: 0.5 mg Diltiazem HCl (Cardizem Cd) 300 mg PO DAILY REPLACED BY [facility] Last Admin: 04/29/17 09:55 Dose: 300 mg Docusate Sodium (Colace) 100 mg PO DAILY REPLACED BY [facility] Last Admin: 04/29/17 09:52 Dose: 100 mg Doxycycline Hyclate (Doryx) 100 mg PO Q12 REPLACED BY [facility] PRN Reason: Protocol Last Admin: 04/29/17 09:54 Dose: 100 mg Enoxaparin Sodium (Lovenox) 40 mg SC DAILY REPLACED BY [facility] PRN Reason: Protocol Last Admin: 04/29/17 09:54 Dose: 40 mg Furosemide (Lasix) 40 mg IVP Q12 REPLACED BY [facility] Last Admin: 04/29/17 09:53 Dose: 40 mg Cefepime HCl (Maxipime 1gm) 1 gm in 100 mls @ 100 mls/hr IVPB Q8 [facility] PRN Reason: Protocol Last Admin: 04/29/17 14:26 Dose: 100 mls/hr Insulin Human Lispro (Humalog Med) 0 units SC ACHS [facility] PRN Reason: Protocol Last Admin: 04/29/17 11:47 Dose: Not Given Levalbuterol HCl (Xopenex) 0.63 mg IH [id number] REPLACED BY [facility] Last Admin: 04/29/17 13:26 Dose: 0.63 mg Levalbuterol HCl (Xopenex) 0.63 mg IH Q2 PRN PRN Reason: Shortness of Breath Methylprednisolone (Solu-Medrol) 40 mg IVP Q12 REPLACED BY [facility] Last Admin: 04/29/17 09:54 Dose: 40 mg Pantoprazole Sodium (Protonix Ec Tab) 40 mg PO ACB REPLACED BY [facility] Last Admin: 04/29/17 07:49 Dose: 40 mg Roflumilast (Daliresp) 500 mcg PO DAILY REPLACED BY [facility] Last Admin: 04/29/17 09:55 Dose: 500 mcg - Labs Labs: 04/29/17 08:00 04/29/17 08:00 PT 11.0 Seconds (9.9-11.8) 04/29/17 08:00 INR 1.02 (0.93-1.08) 04/29/17 08:00 APTT 26.8 Seconds (23.7-30.8) 04/29/17 08:00 - Constitutional Appears: Non-toxic, No Acute Distress - Head Exam Head Exam: ATRAUMATIC, NORMOCEPHALIC - Eye Exam Additional comments: b/l cataracts noted - ENT Exam ENT Exam: Mucous Membranes Dry - Neck Exam Neck Exam: Normal Inspection. absent: Lymphadenopathy - Respiratory Exam Respiratory Exam: Rhonchi, Wheezes. absent: Accessory Muscle Use, Respiratory Distress - Cardiovascular Exam Cardiovascular Exam: REGULAR RHYTHM, +S1, +S2 - GI/Abdominal Exam GI & Abdominal Exam: Soft, Normal Bowel Sounds. absent: Tenderness - Extremities Exam Extremities Exam: Normal Inspection. absent: Pedal Edema - Neurological Exam Neurological Exam: Alert, Awake, Oriented x3 - Psychiatric Exam Psychiatric exam: Normal Affect, Normal Mood - Skin Skin Exam: Dry, Normal Color Assessment and Plan - Assessment and Plan (Free Text) Assessment: 71 y/o male with hx of severe COPD, CAD, DM, blindness presenting with hypercapnic respiratory failure secondary to COPD exacerbation complicated by hypercapnic encephalopathy. Hypercapnea resolved. Encephalopathy resolved. COPD exacerbataion - continue abx per ID - solumedrol 40 q12 - xopenex, q4hr PRN - continue BPAP at night - ICU eval - patient is DNR/DNI. He will be admitted to telemetry - pulmonary is following - there is no evidence of pneumonia, procalcitonin is negative Pulmonary edema with hx diastolic dysfunction - lasix 40 IV BID - cardiology is following - recommend cautious fluid administration. possible echo - monitor fluid status hx CAD - continue home medications DM2 - hold metformin - SSI - Med - fingersticks ACHS PPX - lovenox sc, scd's - protonix 40 daily Dispo: patient lives with his nieces. he will return there after discharge. <Andriy Reyes - Last Filed: 04/30/17 14:30> Objective - Vital Signs/Intake and Output Vital Signs (last 24 hours): Temp Pulse Resp BP Pulse Ox 98.6 F 75 20 133/79 97 04/30/17 12:00 04/30/17 12:00 04/30/17 12:00 04/30/17 12:00 04/30/17 06:00 Intake and Output: 04/30/17 04/30/17 06:59 18:59 Intake Total 600 Output Total 950 Balance -350 - Medications Medications: Current Medications Acetaminophen (Tylenol 325mg Tab) 650 mg PO Q6 PRN PRN Reason: mild pain or fever Last Admin: 04/29/17 13:03 Dose: 650 mg Alprazolam (Xanax) 0.25 mg PO BID PRN; Protocol PRN Reason: Anxiety Stop: 05/05/17 16:36 Arformoterol Tartrate (Brovana) 15 mcg IH [id number] REPLACED BY [facility] Last Admin: 04/30/17 08:23 Dose: 15 mcg Aspirin (Aspirin Chewable) 81 mg PO DAILY REPLACED BY [facility] Last Admin: 04/30/17 09:51 Dose: 81 mg Budesonide (Pulmicort Respules) 0.5 mg IH [id number] REPLACED BY [facility] Last Admin: 04/30/17 08:23 Dose: 0.5 mg Diltiazem HCl (Cardizem Cd) 300 mg PO DAILY REPLACED BY [facility] Last Admin: 04/30/17 09:51 Dose: 300 mg Docusate Sodium (Colace) 100 mg PO DAILY REPLACED BY [facility] Last Admin: 04/30/17 09:50 Dose: 100 mg Doxycycline Hyclate (Doryx) 100 mg PO Q12 [facility] PRN Reason: Protocol Last Admin: 04/30/17 09:50 Dose: 100 mg Enoxaparin Sodium (Lovenox) 40 mg SC DAILY [facility] PRN Reason: Protocol Last Admin: 04/30/17 09:50 Dose: 40 mg Furosemide (Lasix) 40 mg IVP Q12 REPLACED BY [facility] Last Admin: 04/30/17 09:49 Dose: 40 mg Guaifenesin (Robitussin) 100 mg PO Q4H PRN PRN Reason: Cough Last Admin: 04/30/17 09:49 Dose: 100 mg Home Med (Home Med) 1 unit PO BID REPLACED BY [facility] Last Admin: 04/30/17 09:51 Dose: 1 unit Cefepime HCl (Maxipime 1gm) 1 gm in 100 mls @ 100 mls/hr IVPB Q8 [facility] PRN Reason: Protocol Last Admin: 04/30/17 05:11 Dose: 100 mls/hr Insulin Human Lispro (Humalog Med) 0 units SC ACHS REPLACED BY [facility] PRN Reason: Protocol Last Admin: 04/30/17 12:14 Dose: Not Given Levalbuterol HCl (Xopenex) 0.63 mg IH [id number] REPLACED BY [facility] Last Admin: 04/30/17 13:46 Dose: 0.63 mg Levalbuterol HCl (Xopenex) 0.63 mg IH Q2 PRN PRN Reason: Shortness of Breath Methylprednisolone (Solu-Medrol) 40 mg IVP Q12 REPLACED BY [facility] Last Admin: 04/30/17 09:48 Dose: 40 mg Pantoprazole Sodium (Protonix Ec Tab) 40 mg PO ACB REPLACED BY [facility] Last Admin: 04/30/17 09:51 Dose: 40 mg Roflumilast (Daliresp) 500 mcg PO DAILY REPLACED BY [facility] Last Admin: 04/30/17 09:50 Dose: 500 mcg - Labs Labs: 04/30/17 06:50 04/30/17 06:50 PT 11.0 Seconds (9.9-11.8) 04/29/17 08:00 INR 1.02 (0.93-1.08) 04/29/17 08:00 APTT 26.8 Seconds (23.7-30.8) 04/29/17 08:00 Attending/Attestation - Attestation I have personally seen and examined this patient.: Yes I have fully participated in the care of the patient.: Yes I have reviewed all pertinent clinical information, including history, physical exam and plan: Yes Notes (Text): 04/30/17 14:29 hospitalist note; Patient seen and examined with resident. This is a 71 year old male with past medical history of severe COPD (on 4L of O2 at home), pulmonary hypertension, obstructive sleep apnea, psoriasis, HTN, NDDM and CAD (s/p stents) and being legally blind who got admitted for copd exacerbation. Continue oxygen during daytime and BiPAP at night. Slowly improving respiratory status. Pulmonary evaluation with appreciated. Continue IV Solu-Medrol . Continue xopenex treatment. Continue IV Lasix for chf. Continue bosentan for pulmonary hypertension. Cardiology evaluation appreciated. Patient is DNI DNR. Long-term prognosis is poor. Follow up with in detail.
[2017-04-29] MEDS: TRACLEER 125 MG PO SCH (17:24)
[2017-04-30] MEDS: Levalbuterol 0.63 MG/3 ML Inhal Soln UD IH SCH ×4 (01:33→19:50)
[2017-04-30] MEDS: Cefepime 1gm in NS 100ml 1 GM/100 ML BAG IVPB SCH ×3 (05:11→21:12)
[2017-04-30 07:15] LABS: ADD MANUAL DIFF? NO
[2017-04-30 07:24] LABS: BASO # 0.01 K/mm3 (0.0-2.0); BASO % 0.1 % (0.0-3.0); GRAN # 10.16 (1.4-6.5); GRAN % 85.4 % (50.0-68.0); HEMATOCRIT 40.5 % (42.0-52.0); LYMPH # 0.9 (1.2-3.4); LYMPH % 7.7 % (22.0-35.0); MEAN CELL VOLUME 84.9 fL (80.0-105.0); MEAN CORPUSCULAR HEMOGLOBIN 24.1 pg (25.0-35.0); MEAN CORPUSCULAR HGB CONC 28.4 g/dl (31.0-37.0); MEAN PLATELET VOLUME 10.5 fl (7.0-11.0); MONO # 0.8 (0.1-0.6); MONO % 6.8 % (1.0-6.0); PLATELET COUNT 252 10^3/uL (120.0-450.0); RED CELL DISTRIBUTION WIDTH 15.6 % (11.5-14.5); WHITE BLOOD COUNT 11.9 10^3/ul (4.5-11.0)
[2017-04-30 07:34] LABS: ALB/GLOB RATIO 1.1 (1.1-1.8); ALKALINE PHOSPHATASE 67 U/L (38-133); ALT/SGPT 28 U/L (7-56); AST/SGOT 23 U/L (15-59); BILIRUBIN,TOTAL 0.3 mg/dL (0.2-1.3); BLOOD UREA NITROGEN 29 mg/dL (7-21); CHLORIDE 87 mmol/L (95-110); GFR AFRICAN-AMERICAN > 60; GLUCOSE,RANDOM 134 mg/dL (70-110); POTASSIUM 4.3 mmol/L (3.6-5.0); SODIUM 137 mmol/L (132-148); TOTAL PROTEIN 7.5 g/dL (5.8-8.3)
[2017-04-30 07:52] LABS: CARBON DIOXIDE 41 mmol/L (21-33)
[2017-04-30] MEDS: Insulin Lispro (humaLOG) MEDIUM Coverage SC SCH ×4 (07:53→21:56)
[2017-04-30] MEDS: Budesonide 0.5 mg/2 ml Inhal Susp UD IH SCH ×2 (08:23→19:50)
[2017-04-30] MEDS: Arformoterol 15 mcg/2 ml Inh Sol IH SCH ×2 (08:23→19:50)
--- NOTE | 2017-04-30 09:11 | PN ---
DATE: 04/30/2017 The patient was seen and examined at bedside. He appears lethargic, but arousable. He answers quest ions and follows commands. PHYSICAL EXAMINATION: VITAL SIGNS: Temperature is 98.5, pulse 80, respirations 20, pulse oximetry is 97% on nasal cannula, blood pressure 140/75. LABORATORY DATA: I reviewed today's laboratory data. His WBCs are 11.9, hemoglobin is 11.5, blood s ugar 134, sodium 137, potassium 4.3. HEAD, EARS, NOSE AND THROAT: Within normal limits. NECK: Supple with no jugular vein distention. CHEST: Symmetrical. HEART: S1, S2. No S3. Irregular. LUNGS: Diminished breath sounds at both bases with a few rhonchi and a few expiratory wheezes. GASTROINTESTINAL: Abdomen soft, nontender with no organomegaly. EXTREMITIES: 1+ edema. His initial arterial blood gas showed a pCO2 elevation to 100; however, the pH is almost normal at 7. 33. That indicates chronic CO2 retention and chronic respiratory failure. ASSESSMENT: 1. Chronic respiratory failure with exacerbation. 2. 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 3. Sepsis syndrome. 4. Left upper lobe mass. 5. Obstructive sleep apnea. 6. Pulmonary hypertension. PLAN: I reviewed his today's blood work. The WBC is not elevated. He is responding well to broncho dilator therapy as well as inhalant steroids and hypoxia is improved with BiPAP, so is most likely hy percarbia. This treatment should continue. The patient is at a great risk of severe pulmonary compl ications and his chronically progressive condition makes him extremely guarded. Luke Coulter MD cc: [id number] TT: 04/30/2017 09:10:41 Confirmation # [id number] Dictation # [id number]
[2017-04-30] MEDS: MethylPREDNISolone 40 mg Vial IVP SCH ×2 (09:48→21:11)
[2017-04-30] MEDS: guaiFENesin 100 mg/5 ml Syrup UD PO PRN ×2 (09:49→21:11)
[2017-04-30] MEDS: Enoxaparin 40 mg Syringe SC SCH (09:50)
[2017-04-30] MEDS: diltiaZEM 300 mg/24 Hours CD Cap PO SCH (09:51)
[2017-04-30] MEDS: TRACLEER 125 MG PO SCH ×2 (09:51→17:34)
[2017-04-30] MEDS: Pantoprazole 40 mg EC Tab PO SCH (09:51)
--- NOTE | 2017-04-30 10:20 | CP.PCM.PN ---
Subjective - Date & Time of Evaluation Date of Evaluation: 04/30/17 Time of Evaluation: 07:00 - Subjective Subjective: Stable on 2R. He feels better. No chest pain. Breathing better. V/S noted. RSR PE: Lungs: rhonci Cor.: S1S2 Abd.: soft Ext.: no edema Neuro.: alert I/O= 1560/1850 ECG 04/28: Sinus Tachycardia, NSSTW changes Labs noted. BC x2 NG at 24 hrs. Objective - Vital Signs/Intake and Output Vital Signs (last 24 hours): Temp Pulse Resp BP Pulse Ox 98.5 F 85 21 127/85 97 04/30/17 06:00 04/30/17 09:51 04/30/17 06:00 04/30/17 09:51 04/30/17 06:00 Intake and Output: 04/30/17 04/30/17 06:59 18:59 Intake Total 600 Output Total 950 Balance -350 - Medications Medications: Current Medications Acetaminophen (Tylenol 325mg Tab) 650 mg PO Q6 PRN PRN Reason: mild pain or fever Last Admin: 04/29/17 13:03 Dose: 650 mg Alprazolam (Xanax) 0.25 mg PO BID PRN; Protocol PRN Reason: Anxiety Stop: 05/05/17 16:36 Arformoterol Tartrate (Brovana) 15 mcg IH [id number] [facility] Last Admin: 04/30/17 08:23 Dose: 15 mcg Aspirin (Aspirin Chewable) 81 mg PO DAILY [facility] Last Admin: 04/30/17 09:51 Dose: 81 mg Budesonide (Pulmicort Respules) 0.5 mg IH [id number] [facility] Last Admin: 04/30/17 08:23 Dose: 0.5 mg Diltiazem HCl (Cardizem Cd) 300 mg PO DAILY [facility] Last Admin: 04/30/17 09:51 Dose: 300 mg Docusate Sodium (Colace) 100 mg PO DAILY [facility] Last Admin: 04/30/17 09:50 Dose: 100 mg Doxycycline Hyclate (Doryx) 100 mg PO Q12 [facility] PRN Reason: Protocol Last Admin: 04/30/17 09:50 Dose: 100 mg Enoxaparin Sodium (Lovenox) 40 mg SC DAILY [facility] PRN Reason: Protocol Last Admin: 04/30/17 09:50 Dose: 40 mg Furosemide (Lasix) 40 mg IVP Q12 [facility] Last Admin: 04/30/17 09:49 Dose: 40 mg Guaifenesin (Robitussin) 100 mg PO Q4H PRN PRN Reason: Cough Last Admin: 04/30/17 09:49 Dose: 100 mg Home Med (Home Med) 1 unit PO BID [facility] Last Admin: 04/30/17 09:51 Dose: 1 unit Cefepime HCl (Maxipime 1gm) 1 gm in 100 mls @ 100 mls/hr IVPB Q8 [facility] PRN Reason: Protocol Last Admin: 04/30/17 05:11 Dose: 100 mls/hr Insulin Human Lispro (Humalog Med) 0 units SC ACHS [facility] PRN Reason: Protocol Last Admin: 04/30/17 07:53 Dose: Not Given Levalbuterol HCl (Xopenex) 0.63 mg IH [id number] [facility] Last Admin: 04/30/17 08:24 Dose: 0.63 mg Levalbuterol HCl (Xopenex) 0.63 mg IH Q2 PRN PRN Reason: Shortness of Breath Methylprednisolone (Solu-Medrol) 40 mg IVP Q12 [facility] Last Admin: 04/30/17 09:48 Dose: 40 mg Pantoprazole Sodium (Protonix Ec Tab) 40 mg PO ACB [facility] Last Admin: 04/30/17 09:51 Dose: 40 mg Roflumilast (Daliresp) 500 mcg PO DAILY [facility] Last Admin: 04/30/17 09:50 Dose: 500 mcg - Labs Labs: 04/30/17 06:50 04/30/17 06:50 PT 11.0 Seconds (9.9-11.8) 04/29/17 08:00 INR 1.02 (0.93-1.08) 04/29/17 08:00 APTT 26.8 Seconds (23.7-30.8) 04/29/17 08:00 Assessment and Plan - Assessment and Plan (Free Text) Assessment: Dyspnea Severe, end stage COPD Sepsis KARL mass Metabolic alkalosis CAD/PCI Diabetes PH Former Smoker GB Surgery H/O ETOH Anemia DNR/DNI Plan: As per Pulm OOB as randa. AB, as per ID Monitor labs, I/O, sats., cultures, etc DNR/DNI noted.
--- NOTE | 2017-04-30 16:23 | PN ---
DATE: 04/30/2017 The patient is in room 277, bed 2. The patient was seen earlier this morning. No fevers and no chil ls. No nausea or vomiting. No chest pain. PHYSICAL EXAMINATION: VITAL SIGNS: Temperature is 98, blood pressure is 130/70, respiratory rate of 18. HEENT: Unremarkable. NECK: Supple. LUNGS: Decreased breath sounds. HEART: Normal S1, S2. ABDOMEN: Soft, nontender. LABORATORY EXAMINATION: Reveals a white count of 11,900. Hemoglobin of 11, platelets of 252. Chemi stries reveal the BUN of 29, creatinine of 0.9. Procalcitonin is less than 0.05. Urinalysis is note d to be negative. Urine for legionella antigen is negative. The patient did have a fever on admissi on of 101.9. Microbiology reveals negative blood cultures currently. The patient's medications on the orders reveals the patient to be on p.o. doxycycline and IV cefepime . The patient's chest x-ray is noted. No infiltrates were identified and Dr. Aramis Loyd's progres s note is reviewed. ASSESSMENT AND PLAN: A 71-year-old male with hypertension, chronic obstructive lung disease, gastroe sophageal reflux disease, coronary artery disease status post percutaneous coronary intervention and stents placed, diabetes, obstructive sleep apnea, who is now with chronic obstructive lung disease ex acerbation, hypertension and coronary artery disease. On cefepime and doxycycline with negative proc alcitonin, negative infiltrate and negative blood cultures. Day #3 of cefepime and doxycycline. We will discontinue the cefepime in next 24 hours. Jurgen Carreon MD cc: [id number] TT: 04/30/2017 16:22:19 Confirmation # [id number] Dictation # [id number]
[2017-05-01 00:13] VITALS: RESP 20
[2017-05-01] MEDS: Levalbuterol 0.63 MG/3 ML Inhal Soln UD IH SCH ×4 (01:37→19:49)
[2017-05-01] MEDS: Cefepime 1gm in NS 100ml 1 GM/100 ML BAG IVPB SCH (07:21)
[2017-05-01] MEDS: Arformoterol 15 mcg/2 ml Inh Sol IH SCH ×2 (07:24→19:49)
[2017-05-01] MEDS: Budesonide 0.5 mg/2 ml Inhal Susp UD IH SCH ×2 (07:24→19:49)
[2017-05-01 07:27] LABS: ADD MANUAL DIFF? NO
[2017-05-01 07:31] LABS: GRAN % 84.2 % (50.0-68.0); LYMPH # 0.9 (1.2-3.4); LYMPH % 7.5 % (22.0-35.0); MEAN CELL VOLUME 84.3 fL (80.0-105.0); MEAN CORPUSCULAR HEMOGLOBIN 24.3 pg (25.0-35.0); MEAN CORPUSCULAR HGB CONC 28.8 g/dl (31.0-37.0); MEAN PLATELET VOLUME 10.3 fl (7.0-11.0); MONO % 8.3 % (1.0-6.0); PLATELET COUNT 244 10^3/uL (120.0-450.0); RED CELL DISTRIBUTION WIDTH 15.9 % (11.5-14.5); WHITE BLOOD COUNT 12.5 10^3/ul (4.5-11.0)
[2017-05-01 07:41] LABS: ALB/GLOB RATIO 1.1 (1.1-1.8); ALKALINE PHOSPHATASE 64 U/L (38-133); ALT/SGPT 29 U/L (7-56); AST/SGOT 31 U/L (15-59); BILIRUBIN,TOTAL 0.4 mg/dL (0.2-1.3); BLOOD UREA NITROGEN 28 mg/dL (7-21); CHLORIDE 87 mmol/L (95-110); GFR AFRICAN-AMERICAN > 60; GLUCOSE,RANDOM 149 mg/dL (70-110); POTASSIUM 4.1 mmol/L (3.6-5.0); SODIUM 139 mmol/L (132-148); TOTAL PROTEIN 7.3 g/dL (5.8-8.3)
[2017-05-01 07:59] LABS: CARBON DIOXIDE 41 mmol/L (21-33)
[2017-05-01] MEDS: Insulin Lispro (humaLOG) MEDIUM Coverage SC SCH ×4 (08:03→22:08)
[2017-05-01] MEDS: Pantoprazole 40 mg EC Tab PO SCH (08:03)
--- NOTE | 2017-05-01 08:38 | CP.PCM.PN ---
Subjective - Date & Time of Evaluation Date of Evaluation: 05/01/17 Time of Evaluation: 07:00 - Subjective Subjective: Stable on 2R. He feels better. No chest pain. Breathing better. V/S noted. RSR PE: Lungs: rhonci Cor.: S1S2 Abd.: soft Ext.: no edema Neuro.: alert I/O= 1060/950 ECG 04/28: Sinus Tachycardia, NSSTW changes Labs noted. BC x2 NG at 48 hrs. Objective - Vital Signs/Intake and Output Vital Signs (last 24 hours): Temp Pulse Resp BP Pulse Ox 98.6 F 94 H 20 141/65 96 05/01/17 06:00 05/01/17 06:00 05/01/17 06:00 05/01/17 06:00 05/01/17 06:00 Intake and Output: 05/01/17 05/01/17 06:59 18:59 Intake Total 340 Output Total 950 Balance -610 - Medications Medications: Current Medications Acetaminophen (Tylenol 325mg Tab) 650 mg PO Q6 PRN PRN Reason: mild pain or fever Last Admin: 04/29/17 13:03 Dose: 650 mg Alprazolam (Xanax) 0.25 mg PO BID PRN; Protocol PRN Reason: Anxiety Stop: 05/05/17 16:36 Arformoterol Tartrate (Brovana) 15 mcg IH [id number] [facility] Last Admin: 05/01/17 07:24 Dose: 15 mcg Aspirin (Aspirin Chewable) 81 mg PO DAILY [facility] Last Admin: 04/30/17 09:51 Dose: 81 mg Budesonide (Pulmicort Respules) 0.5 mg IH [id number] [facility] Last Admin: 05/01/17 07:24 Dose: 0.5 mg Diltiazem HCl (Cardizem Cd) 300 mg PO DAILY [facility] Last Admin: 04/30/17 09:51 Dose: 300 mg Docusate Sodium (Colace) 100 mg PO DAILY [facility] Last Admin: 04/30/17 09:50 Dose: 100 mg Doxycycline Hyclate (Doryx) 100 mg PO Q12 [facility] PRN Reason: Protocol Last Admin: 04/30/17 21:12 Dose: 100 mg Enoxaparin Sodium (Lovenox) 40 mg SC DAILY [facility] PRN Reason: Protocol Last Admin: 04/30/17 09:50 Dose: 40 mg Furosemide (Lasix) 40 mg IVP Q12 [facility] Last Admin: 04/30/17 21:12 Dose: 40 mg Guaifenesin (Robitussin) 100 mg PO Q4H PRN PRN Reason: Cough Last Admin: 04/30/17 21:11 Dose: 100 mg Home Med (Home Med) 1 unit PO BID [facility] Last Admin: 04/30/17 17:34 Dose: 1 unit Cefepime HCl (Maxipime 1gm) 1 gm in 100 mls @ 100 mls/hr IVPB Q8 [facility] PRN Reason: Protocol Last Admin: 05/01/17 07:21 Dose: 100 mls/hr Insulin Human Lispro (Humalog Med) 0 units SC ACHS [facility] PRN Reason: Protocol Last Admin: 05/01/17 08:03 Dose: 1 units Levalbuterol HCl (Xopenex) 0.63 mg IH [id number] [facility] Last Admin: 05/01/17 07:26 Dose: 0.63 mg Levalbuterol HCl (Xopenex) 0.63 mg IH Q2 PRN PRN Reason: Shortness of Breath Methylprednisolone (Solu-Medrol) 40 mg IVP Q12 [facility] Last Admin: 04/30/17 21:11 Dose: 40 mg Pantoprazole Sodium (Protonix Ec Tab) 40 mg PO ACB [facility] Last Admin: 05/01/17 08:03 Dose: 40 mg Roflumilast (Daliresp) 500 mcg PO DAILY [facility] Last Admin: 04/30/17 09:50 Dose: 500 mcg - Labs Labs: 05/01/17 05:30 05/01/17 05:30 PT 11.0 Seconds (9.9-11.8) 04/29/17 08:00 INR 1.02 (0.93-1.08) 04/29/17 08:00 APTT 26.8 Seconds (23.7-30.8) 04/29/17 08:00 Assessment and Plan - Assessment and Plan (Free Text) Assessment: Dyspnea Severe, end-stage COPD Sepsis KARL mass Metabolic alkalosis CAD/PCI Diabetes PH Former Smoker GB Surgery H/O ETOH Anemia DNR/DNI Plan: As per Pulm Continue IV Lasix OOB as randa. AB, as per ID Monitor labs, I/O, sats., cultures, etc DNR/DNI noted.
[2017-05-01] MEDS: diltiaZEM 300 mg/24 Hours CD Cap PO SCH (09:23)
[2017-05-01] MEDS: TRACLEER 125 MG PO SCH ×2 (09:24→17:02)
[2017-05-01] MEDS: Enoxaparin 40 mg Syringe SC SCH (09:25)
[2017-05-01] MEDS: MethylPREDNISolone 40 mg Vial IVP SCH (10:00)
--- NOTE | 2017-05-01 10:55 | PN ---
DATE: 05/01/2017 The patient is in bed in no acute distress. PHYSICAL EXAMINATION: VITAL SIGNS: Temperature of 98, blood pressure is 140/60, respiratory rate of 16. HEENT: Unremarkable. NECK: Supple. LUNGS: Have decreased breath sounds. HEART: Normal S1, S2. ABDOMEN: Soft, nontender. LABORATORY DATA: Reveals a white count of 12,500, hemoglobin of 12. Chemistries reveal a BUN of 28, creatinine of 1.0. Urinalysis is noted. The patient's procalcitonin is normal at less than 0.05. Serology is noted. Urine for legionella antigen is negative. Review of the orders reveals the patient to be on p.o. doxycycline and IV cefepime and Solu-Medrol. Dr. Loyd's note is reviewed. ASSESSMENT AND PLAN: This is a 71-year-old male with hypertension, chronic obstructive lung disease, gastroesophageal reflux disease, coronary artery disease, is status post percutaneous coronary inter vention, stent placed, diabetes, obstructive sleep apnea, who is now with chronic obstructive lung ex acerbation and a normal procalcitonin. We will discontinue the cefepime. Today is day #4 of doxycyc line. Would complete 7 days of doxycycline. Jurgen Carreon MD cc: [id number] TT: 05/01/2017 10:55:04 Confirmation # [id number] Dictation # [id number] daniel
--- NOTE | 2017-05-01 15:47 | CP.PCM.DIS ---
Addendum entered and electronically signed by Severo Pratt DO 05/01/17 16:19 : TCU bed is unavailable. Patient will remain as an inpatient. Please see today's progress note. Original Note: <Severo Pratt - Last Filed: 05/01/17 15:40> Provider - Provider Date of Admission: 04/28/17 15:11 Attending physician: Cherrie Mcghee MD Primary care physician: Jose C Ambrocio MD Consults: Pulmonary - Dr. Edmond Cardiology - Dr. Loyd ID - Dr. Quarles Time Spent in preparation of Discharge (in minutes): 35 Diagnosis - Discharge Diagnosis (1) COPD exacerbation Status: Acute Hospital Course - Lab Results Lab Results: Micro Results 04/29/17 08:34 Urine Urine Culture - Final <10,000 CFU/ML. MULTIPLE SPECIES. PROBABLE CONTAMINATION. Most Recent Lab Values WBC 12.5 10^3/ul (4.5-11.0) H 05/01/17 05:30 RBC 4.98 10^6/uL (3.5-6.1) 05/01/17 05:30 Hgb 12.1 gm/dL (14.0-18.0) L 05/01/17 05:30 Hct 42.0 % (42.0-52.0) 05/01/17 05:30 MCV 84.3 fL (80.0-105.0) 05/01/17 05:30 MCH 24.3 pg (25.0-35.0) L 05/01/17 05:30 MCHC 28.8 g/dl (31.0-37.0) L 05/01/17 05:30 RDW 15.9 % (11.5-14.5) H 05/01/17 05:30 Plt Count 244 10^3/uL (120.0-450.0) 05/01/17 05:30 MPV 10.3 fl (7.0-11.0) 05/01/17 05:30 Gran % 84.2 % (50.0-68.0) H 05/01/17 05:30 Lymph % (Auto) 7.5 % (22.0-35.0) L 05/01/17 05:30 Grand % (Auto) 8.3 % (1.0-6.0) H 05/01/17 05:30 Eos % (Auto) 0.0 % (1.5-5.0) L 05/01/17 05:30 Baso % (Auto) 0.0 % (0.0-3.0) 05/01/17 05:30 Gran # 10.50 (1.4-6.5) H 05/01/17 05:30 Lymph # 0.9 (1.2-3.4) L 05/01/17 05:30 Grand # 1.0 (0.1-0.6) H 05/01/17 05:30 Eos # 0.0 (0.0-0.7) 05/01/17 05:30 Baso # 0.00 K/mm3 (0.0-2.0) 05/01/17 05:30 PT 11.0 Seconds (9.9-11.8) 04/29/17 08:00 INR 1.02 (0.93-1.08) 04/29/17 08:00 APTT 26.8 Seconds (23.7-30.8) 04/29/17 08:00 pCO2 97 mm/Hg (35-45) H* 04/28/17 17:22 pO2 50.0 mm/Hg (80-100) L 04/28/17 17: HCO3 56.1 mmol/L (21-28) H* 04/28/17 17:22 ABG pH 7.37 (7.35-7.45) 04/28/17 17: ABG Total CO2 59.1 mmol.L (22-28) H 04/28/17 17:22 ABG O2 Saturation 89.6 % (95-98) L 04/28/17 17:22 ABG O2 Content 12.8 ML/dl (15-23) L 04/28/17 17:22 ABG Base Excess 26.1 mmol/L (-2.0-3.0) H 04/28/17 17: ABG Hemoglobin 10.6 g/dL (11.7-17.4) L 04/28/17 17:22 ABG Carboxyhemoglobin 3.2 % (0.5-1.5) H 04/28/17 17: POC ABG HHb (Measured) 9.9 % (0-5) H 04/28/17 17:22 ABG Methemoglobin 1.3 % (0.0-3.0) 04/28/17 17:22 ABG O2 Capacity 14.3 mL/dl (16-24) L 04/28/17 17:22 ABG Potassium 4.1 mmol/L (3.6-5.2) 04/28/17 15:23 Hgb O2 Saturation 85.7 % (95.0-98.0) L 04/28/17 17:22 Sodium 142.0 mmol/L (132-148) 04/28/17 15:23 Chloride 99.0 mmol/L (98-107) 04/28/17 15:23 Glucose 118 mg/dl (75-110) H 04/28/17 15:23 Lactate 0.4 mmol/L (0.7-2.1) L 04/28/17 15:23 FiO2 40.0 % 04/28/17 17:22 Sodium 139 mmol/L (132-148) 05/01/17 05:30 Potassium 4.1 mmol/L (3.6-5.0) 05/01/17 05:30 Chloride 87 mmol/L (95-110) L 05/01/17 05:30 Carbon Dioxide 41 mmol/L (21-33) H 05/01/17 05:30 Anion Gap 15 (10-20) 05/01/17 05:30 BUN 28 mg/dL (7-21) H 05/01/17 05:30 Creatinine 1.0 mg/dL (0.5-1.4) 05/01/17 05:30 Est GFR ( Amer) > 60 05/01/17 05:30 Est GFR (Non-Af Amer) > 60 05/01/17 05:30 POC Glucose (mg/dL) 129 mg/dL (65-110) H 05/01/17 11:23 Random Glucose 149 mg/dL (70-110) H 05/01/17 05:30 Calcium 9.0 mg/dL (8.4-10.5) 05/01/17 05:30 Total Bilirubin 0.4 mg/dL (0.2-1.3) 05/01/17 05:30 AST 31 U/L (15-59) 05/01/17 05:30 ALT 29 U/L (7-56) 05/01/17 05:30 Alkaline Phosphatase 64 U/L (38-133) 05/01/17 05:30 Lactate Dehydrogenase 356 U/L (333-699) 04/28/17 13:40 Total Creatine Kinase 26 U/L (35-230) L 04/28/17 13:40 Troponin I < 0.01 ng/mL 04/28/17 13:40 NT-Pro-B Natriuret Pep 514 pg/mL (0-450) H 04/28/17 13:40 Total Protein 7.3 g/dL (5.8-8.3) 05/01/17 05:30 Albumin 3.9 g/dL (3.0-4.8) 05/01/17 05:30 Globulin 3.4 gm/dL 05/01/17 05:30 Albumin/Globulin Ratio 1.1 (1.1-1.8) 05/01/17 05:30 Lipase 51 U/L (23-300) 04/28/17 13:40 Procalcitonin < 0.05 NG/ML (0.19-0.49) L 04/28/17 13:40 Arterial Blood Potassium 4.1 mmol/L (3.6-5.2) 04/28/17 15:23 Urine Color Yellow (YELLOW) 04/29/17 06:45 Urine Appearance Clear (CLEAR) 04/29/17 06:45 Urine pH 7.0 (4.7-8.0) 04/29/17 06:45 Ur Specific [place] 1.015 (1.005-1.035) 04/29/17 06:45 Urine Protein Negative mg/dL (<30 mg/dL) 04/29/17 06:45 Urine Glucose (UA) Negative mg/dL (NEGATIVE) 04/29/17 06:45 Urine Ketones Negative mg/dL (NEGATIVE) 04/29/17 06:45 Urine Blood Negative (NEGATIVE) 04/29/17 06:45 Urine Nitrate Negative (NEGATIVE) 04/29/17 06:45 Urine Bilirubin Negative (NEGATIVE) 04/29/17 06:45 Urine Urobilinogen 0.2 E.U./dL (<1 E.U./dL) 04/29/17 06:45 Ur Leukocyte Esterase Negative Kristina/uL (NEGATIVE) 04/29/17 06:45 Ur L.pneumophila Ag Negative (NEGATIVE) 04/29/17 07:38 - Hospital Course Hospital Course: This is a 71 y/o male with hx COPD, PH, SARBJIT, CAD with stents, DM, legally blind presenting with complaints of shortness of breath and chest discomfort. POA is at bedside stating the patient has not been his normal self at home noting a change in mental status. Family notes he is forgetting the names of other family members. They also report the patient has been lethargic and has been refusing to take his nebulizer treatments at home. The patient is on home O2 and is severely limited by is pulmonary disease. Family denies any recent illness including diarrhea, urinary changes, abdominal pain, vomiting, fever or chills. On evaluation in the ED after about 1 hour on BPAP the patient is awake and alert. He is answering questions appropriately. The patient was admitted for hypercapnic respiratory failure 2/2 COPD exacerbation, hypercapnic encephalopathy. He was placed on BPAP continuously with marked improvement in mental status and hypercapnea. He was placed on bronchodilators, antibiotics and IV steroids. Pulmonary was consulted and agreed with the plan. Cardiology was consulted and the patient was continued on his current medications. EKG did not reveal signs of acute ischemia. There was a questionable infiltrate noted on chest xray. ID was consulted and determined there was not likely a pneumonia. The patient was started on Doxycycline. The patient was evaluated by PT who determined the patient suffers from a significant gait dysfunction and would benefit from TCU admission. The patient was deemed medically stable and is transferred to TCU for further physical rehabilitation. He will be continued on IV doxycycline, bronchodilators and steroid taper. Discharge Exam - Head Exam Head Exam: ATRAUMATIC, NORMOCEPHALIC - Eye Exam Eye Exam: PERRL - ENT Exam ENT Exam: Mucous Membranes Moist - Respiratory Exam Respiratory Exam: Rhonchi, Wheezes. absent: Clear to PA & Lateral, Rales, Respiratory Distress - Cardiovascular Exam Cardiovascular Exam: REGULAR RHYTHM, +S2 - GI/Abdominal Exam GI & Abdominal Exam: Normal Bowel Sounds, Soft - Neurological Exam Neurological exam: Alert, Oriented x3 - Psychiatric Exam Psychiatric exam: Normal Affect, Normal Mood - Skin Skin Exam: Dry, Warm Discharge Plan - Discharge Medications Prescriptions: ALPRAZolam [Xanax] 0.25 mg PO BID PRN #12 tab PRN Reason: Anxiety Doxycycline Hyclate 100 mg PO BID #6 capsule Furosemide [Lasix] 40 mg PO BID #60 udc guaiFENesin [guaifENESIN] 100 mg PO TID #15 udc Prednisone [Deltasone] 20 mg PO DAILY #5 tablet - Follow Up Plan Condition: FAIR Disposition: REHAB FACILITY/REHAB UNIT Instructions: Emphysema (GEN), COPD (Chronic Obstructive Pulmonary Disease) (DC ) Additional Instructions: 1. Follow up with PMD Dr. Ambrocio in 1 week. 2. Follow up with DR. edmond pulmonary next week. 3. Continue oxygen and BIPAP at night. 4. Fall precautions. Referrals: Jose C Ambrocio MD [Primary Care Provider] - <Cherrie Mcghee MD - Last Filed: 05/05/17 13:18> Provider - Provider Date of Admission: 04/28/17 15:11 Attending physician: Cherrie Mcghee MD Primary care physician: Jose C Ambrocio MD Hospital Course - Lab Results Lab Results: Micro Results 04/29/17 08:34 Urine Urine Culture - Final <10,000 CFU/ML. MULTIPLE SPECIES. PROBABLE CONTAMINATION. Most Recent Lab Values WBC 12.4 10^3/ul (4.5-11.0) H 05/02/17 06:13 RBC 5.04 10^6/uL (3.5-6.1) 05/02/17 06:13 Hgb 12.2 gm/dL (14.0-18.0) L 05/02/17 06:13 Hct 42.6 % (42.0-52.0) 05/02/17 06:13 MCV 84.5 fL (80.0-105.0) 05/02/17 06:13 MCH 24.2 pg (25.0-35.0) L 05/02/17 06:13 MCHC 28.6 g/dl (31.0-37.0) L 05/02/17 06:13 RDW 16.0 % (11.5-14.5) H 05/02/17 06:13 Plt Count 211 10^3/uL (120.0-450.0) 05/02/17 06:13 MPV 10.6 fl (7.0-11.0) 05/02/17 06:13 Gran % 72.2 % (50.0-68.0) H 05/02/17 06:13 Lymph % (Auto) 16.8 % (22.0-35.0) L 05/02/17 06:13 Grand % (Auto) 10.3 % (1.0-6.0) H 05/02/17 06:13 Eos % (Auto) 0.6 % (1.5-5.0) L 05/02/17 06:13 Baso % (Auto) 0.1 % (0.0-3.0) 05/02/17 06:13 Gran # 8.92 (1.4-6.5) H 05/02/17 06:13 Lymph # 2.1 (1.2-3.4) 05/02/17 06:13 Grand # 1.3 (0.1-0.6) H 05/02/17 06:13 Eos # 0.1 (0.0-0.7) 05/02/17 06:13 Baso # 0.01 K/mm3 (0.0-2.0) 05/02/17 06:13 PT 11.0 Seconds (9.9-11.8) 04/29/17 08:00 INR 1.02 (0.93-1.08) 04/29/17 08:00 APTT 26.8 Seconds (23.7-30.8) 04/29/17 08:00 pCO2 97 mm/Hg (35-45) H* 04/28/17 17:22 pO2 50.0 mm/Hg (80-100) L 04/28/17 17: HCO3 56.1 mmol/L (21-28) H* 04/28/17 17:22 ABG pH 7.37 (7.35-7.45) 04/28/17 17: ABG Total CO2 59.1 mmol.L (22-28) H 04/28/17 17:22 ABG O2 Saturation 89.6 % (95-98) L 04/28/17 17:22 ABG O2 Content 12.8 ML/dl (15-23) L 04/28/17 17:22 ABG Base Excess 26.1 mmol/L (-2.0-3.0) H 04/28/17 17:22 ABG Hemoglobin 10.6 g/dL (11.7-17.4) L 04/28/17 17:22 ABG Carboxyhemoglobin 3.2 % (0.5-1.5) H 04/28/17 17:22 POC ABG HHb (Measured) 9.9 % (0-5) H 04/28/17 17:22 ABG Methemoglobin 1.3 % (0.0-3.0) 04/28/17 17:22 ABG O2 Capacity 14.3 mL/dl (16-24) L 04/28/17 17:22 ABG Potassium 4.1 mmol/L (3.6-5.2) 04/28/17 15:23 Hgb O2 Saturation 85.7 % (95.0-98.0) L 04/28/17 17:22 Sodium 142.0 mmol/L (132-148) 04/28/17 15:23 Chloride 99.0 mmol/L (98-107) 04/28/17 15:23 Glucose 118 mg/dl (75-110) H 04/28/17 15:23 Lactate 0.4 mmol/L (0.7-2.1) L 04/28/17 15:23 FiO2 40.0 % 04/28/17 17:22 Sodium 140 mmol/L (132-148) 05/02/17 06:13 Potassium 3.4 mmol/L (3.6-5.0) L 05/02/17 06:13 Chloride 88 mmol/L (98-107) L 05/02/17 06:13 Carbon Dioxide 46 mmol/L (21-33) H 05/02/17 06:13 Anion Gap 9 (10-20) L 05/02/17 06:13 BUN 31 mg/dL (7-21) H 05/02/17 06:13 Creatinine 0.9 mg/dL (0.5-1.4) 05/02/17 06:13 Est GFR ( Amer) > 60 05/02/17 06:13 Est GFR (Non-Af Amer) > 60 05/02/17 06:13 POC Glucose (mg/dL) 136 mg/dL (65-110) H 05/02/17 10:52 Random Glucose 116 mg/dL (70-110) H 05/02/17 06:13 Calcium 9.0 mg/dL (8.4-10.5) 05/02/17 06:13 Total Bilirubin 0.5 mg/dL (0.2-1.3) 05/02/17 06:13 AST 29 U/L (15-59) 05/02/17 06:13 ALT 32 U/L (7-56) 05/02/17 06:13 Alkaline Phosphatase 59 U/L (38-133) 05/02/17 06:13 Lactate Dehydrogenase 356 U/L (333-699) 04/28/17 13:40 Total Creatine Kinase 26 U/L (35-230) L 04/28/17 13:40 Troponin I < 0.01 ng/mL 04/28/17 13:40 NT-Pro-B Natriuret Pep 514 pg/mL (0-450) H 04/28/17 13:40 Total Protein 7.4 g/dL (5.8-8.3) 05/02/17 06:13 Albumin 3.6 g/dL (3.0-4.8) 05/02/17 06:13 Globulin 3.7 gm/dL 05/02/17 06:13 Albumin/Globulin Ratio 1.0 (1.1-1.8) L 05/02/17 06:13 Lipase 51 U/L (23-300) 04/28/17 13:40 Procalcitonin < 0.05 NG/ML (0.19-0.49) L 04/28/17 13:40 Arterial Blood Potassium 4.1 mmol/L (3.6-5.2) 04/28/17 15:23 Urine Color Yellow (YELLOW) 04/29/17 06:45 Urine Appearance Clear (CLEAR) 04/29/17 06:45 Urine pH 7.0 (4.7-8.0) 04/29/17 06:45 Ur Specific [place] 1.015 (1.005-1.035) 04/29/17 06:45 Urine Protein Negative mg/dL (<30 mg/dL) 04/29/17 06:45 Urine Glucose (UA) Negative mg/dL (NEGATIVE) 04/29/17 06:45 Urine Ketones Negative mg/dL (NEGATIVE) 04/29/17 06:45 Urine Blood Negative (NEGATIVE) 04/29/17 06:45 Urine Nitrate Negative (NEGATIVE) 04/29/17 06:45 Urine Bilirubin Negative (NEGATIVE) 04/29/17 06:45 Urine Urobilinogen 0.2 E.U./dL (<1 E.U./dL) 04/29/17 06:45 Ur Leukocyte Esterase Negative Kristina/uL (NEGATIVE) 04/29/17 06:45 Ur L.pneumophila Ag Negative (NEGATIVE) 04/29/17 07:38 Attending/Attestation - Attestation I have personally seen and examined this patient.: Yes I have fully participated in the care of the patient.: Yes I have reviewed all pertinent clinical information, including history, physical exam and plan: Yes Notes (Text): 05/05/17 13:18 Patient did not leave as there was no bed available in TCU. Please see progress note
--- NOTE | 2017-05-01 16:43 | CP.PCM.PN ---
<TerenceSevero - Last Filed: 05/01/17 16:28> Subjective - Date & Time of Evaluation Date of Evaluation: 05/01/17 Time of Evaluation: 11:30 - Subjective Subjective: Patient seen and examined. Shortness of breath is improved. He continues on nasal cannula, BPAP at night. He is afebrile. Tolerating diet. Objective - Vital Signs/Intake and Output Vital Signs (last 24 hours): Temp Pulse Resp BP Pulse Ox 98.4 F 79 20 116/68 96 05/01/17 11:58 05/01/17 14:00 05/01/17 11:58 05/01/17 11:58 05/01/17 06:00 Intake and Output: 05/01/17 05/01/17 06:59 18:59 Intake Total 340 900 Output Total 950 650 Balance -610 250 - Medications Medications: Current Medications Acetaminophen (Tylenol 325mg Tab) 650 mg PO Q6 PRN PRN Reason: mild pain or fever Last Admin: 04/29/17 13:03 Dose: 650 mg Alprazolam (Xanax) 0.25 mg PO BID PRN; Protocol PRN Reason: Anxiety Stop: 05/05/17 16:36 Last Admin: 05/01/17 09:23 Dose: 0.25 mg Arformoterol Tartrate (Brovana) 15 mcg IH [id number] [facility] Last Admin: 05/01/17 07:24 Dose: 15 mcg Aspirin (Aspirin Chewable) 81 mg PO DAILY [facility] Last Admin: 05/01/17 09:23 Dose: 81 mg Budesonide (Pulmicort Respules) 0.5 mg IH [id number] [facility] Last Admin: 05/01/17 07:24 Dose: 0.5 mg Diltiazem HCl (Cardizem Cd) 300 mg PO DAILY [facility] Last Admin: 05/01/17 09:23 Dose: 300 mg Docusate Sodium (Colace) 100 mg PO DAILY [facility] Last Admin: 05/01/17 09:23 Dose: 100 mg Doxycycline Hyclate (Doryx) 100 mg PO Q12 [facility] PRN Reason: Protocol Last Admin: 05/01/17 09:22 Dose: 100 mg Enoxaparin Sodium (Lovenox) 40 mg SC DAILY [facility] PRN Reason: Protocol Last Admin: 05/01/17 09:25 Dose: 40 mg Furosemide (Lasix) 40 mg IVP Q12 [facility] Last Admin: 05/01/17 10:00 Dose: 40 mg Guaifenesin (Robitussin) 100 mg PO Q4H PRN PRN Reason: Cough Last Admin: 04/30/17 21:11 Dose: 100 mg Home Med (Home Med) 1 unit PO BID [facility] Last Admin: 05/01/17 09:24 Dose: 1 unit Insulin Human Lispro (Humalog Med) 0 units SC ACHS [facility] PRN Reason: Protocol Last Admin: 05/01/17 13:21 Dose: Not Given Levalbuterol HCl (Xopenex) 0.63 mg IH [id number] [facility] Last Admin: 05/01/17 13:43 Dose: 0.63 mg Levalbuterol HCl (Xopenex) 0.63 mg IH Q2 PRN PRN Reason: Shortness of Breath Pantoprazole Sodium (Protonix Ec Tab) 40 mg PO ACB [facility] Last Admin: 05/01/17 08:03 Dose: 40 mg Prednisone (Prednisone Tab) 40 mg PO DAILY [facility] Roflumilast (Daliresp) 500 mcg PO DAILY [facility] Last Admin: 05/01/17 09:23 Dose: 500 mcg - Labs Labs: 05/01/17 05:30 05/01/17 05:30 PT 11.0 Seconds (9.9-11.8) 04/29/17 08:00 INR 1.02 (0.93-1.08) 04/29/17 08:00 APTT 26.8 Seconds (23.7-30.8) 04/29/17 08:00 - Constitutional Appears: Non-toxic, No Acute Distress - Head Exam Head Exam: ATRAUMATIC, NORMOCEPHALIC - Eye Exam Eye Exam: EOMI, PERRL - ENT Exam ENT Exam: Mucous Membranes Moist - Neck Exam Neck Exam: Full ROM, Normal Inspection - Respiratory Exam Respiratory Exam: Rhonchi, Wheezes. absent: Accessory Muscle Use, Clear to Ausculation Bilateral, Respiratory Distress - Cardiovascular Exam Cardiovascular Exam: REGULAR RHYTHM, +S1, +S2 - GI/Abdominal Exam GI & Abdominal Exam: Soft, Normal Bowel Sounds. absent: Tenderness - Extremities Exam Extremities Exam: Pedal Edema. absent: Calf Tenderness - Neurological Exam Neurological Exam: Alert, Awake, Oriented x3 - Psychiatric Exam Psychiatric exam: Normal Affect, Normal Mood - Skin Skin Exam: Dry, Warm Assessment and Plan - Assessment and Plan (Free Text) Assessment: 71 y/o male with hx of severe COPD, CAD, DM, blindness presenting with hypercapnic respiratory failure secondary to COPD exacerbation complicated by hypercapnic encephalopathy. Hypercapnea resolved. Encephalopathy resolved. COPD exacerbataion - continue abx per ID - prednisone 40mg daily - xopenex, q4hr PRN - continue BPAP at night - ICU eval - patient is DNR/DNI. He will be admitted to telemetry - pulmonary is following - there is no evidence of pneumonia, procalcitonin is negative Pulmonary edema with hx diastolic dysfunction - lasix 40 IV BID - cardiology is following - recommend cautious fluid administration. possible echo - monitor fluid status hx CAD - continue home medications DM2 - hold metformin - SSI - Med - fingersticks ACHS PPX - lovenox sc, scd's - protonix 40 daily Dispo: Patient evaluated for TCU placement however there are no beds available. He will remain as an inpatient. <Taz PAIZ,Cherrie - Last Filed: 05/01/17 16:57> Objective - Vital Signs/Intake and Output Vital Signs (last 24 hours): Temp Pulse Resp BP Pulse Ox 98.4 F 79 20 116/68 96 05/01/17 11:58 05/01/17 14:00 05/01/17 11:58 05/01/17 11:58 05/01/17 06:00 Intake and Output: 05/01/17 05/01/17 06:59 18:59 Intake Total 340 900 Output Total 950 650 Balance -610 250 - Medications Medications: Current Medications Acetaminophen (Tylenol 325mg Tab) 650 mg PO Q6 PRN PRN Reason: mild pain or fever Last Admin: 04/29/17 13:03 Dose: 650 mg Alprazolam (Xanax) 0.25 mg PO BID PRN; Protocol PRN Reason: Anxiety Stop: 05/05/17 16:36 Last Admin: 05/01/17 09:23 Dose: 0.25 mg Arformoterol Tartrate (Brovana) 15 mcg IH [id number] [facility] Last Admin: 05/01/17 07:24 Dose: 15 mcg Aspirin (Aspirin Chewable) 81 mg PO DAILY [facility] Last Admin: 05/01/17 09:23 Dose: 81 mg Budesonide (Pulmicort Respules) 0.5 mg IH [id number] [facility] Last Admin: 05/01/17 07:24 Dose: 0.5 mg Diltiazem HCl (Cardizem Cd) 300 mg PO DAILY [facility] Last Admin: 05/01/17 09:23 Dose: 300 mg Docusate Sodium (Colace) 100 mg PO DAILY [facility] Last Admin: 05/01/17 09:23 Dose: 100 mg Doxycycline Hyclate (Doryx) 100 mg PO Q12 [facility] PRN Reason: Protocol Last Admin: 05/01/17 09:22 Dose: 100 mg Enoxaparin Sodium (Lovenox) 40 mg SC DAILY [facility] PRN Reason: Protocol Last Admin: 05/01/17 09:25 Dose: 40 mg Furosemide (Lasix) 40 mg IVP Q12 [facility] Last Admin: 05/01/17 10:00 Dose: 40 mg Guaifenesin (Robitussin) 100 mg PO Q4H PRN PRN Reason: Cough Last Admin: 04/30/17 21:11 Dose: 100 mg Home Med (Home Med) 1 unit PO BID [facility] Last Admin: 05/01/17 09:24 Dose: 1 unit Insulin Human Lispro (Humalog Med) 0 units SC ACHS [facility] PRN Reason: Protocol Last Admin: 05/01/17 13:21 Dose: Not Given Levalbuterol HCl (Xopenex) 0.63 mg IH [id number] [facility] Last Admin: 05/01/17 13:43 Dose: 0.63 mg Levalbuterol HCl (Xopenex) 0.63 mg IH Q2 PRN PRN Reason: Shortness of Breath Pantoprazole Sodium (Protonix Ec Tab) 40 mg PO ACB [facility] Last Admin: 05/01/17 08:03 Dose: 40 mg Prednisone (Prednisone Tab) 40 mg PO DAILY [facility] Roflumilast (Daliresp) 500 mcg PO DAILY [facility] Last Admin: 05/01/17 09:23 Dose: 500 mcg - Labs Labs: 05/01/17 05:30 05/01/17 05:30 PT 11.0 Seconds (9.9-11.8) 04/29/17 08:00 INR 1.02 (0.93-1.08) 04/29/17 08:00 APTT 26.8 Seconds (23.7-30.8) 04/29/17 08:00 Attending/Attestation - Attestation I have personally seen and examined this patient.: Yes I have fully participated in the care of the patient.: Yes I have reviewed all pertinent clinical information, including history, physical exam and plan: Yes Notes (Text): 05/01/17 16:53 Patient was seen and examined with dental assistant medical assistant. 71 year old male with pmh as severe COPD (on 4L of O2 at home), pulmonary hypertension, obstructive sleep apnea, psoriasis, HTN, NDDM and CAD (s/p stents ) , legally blind is admitted with hypercapnic hypoxic Resp Failure . Patient was treated with BIPAP,Nebulization, IV lasix and IV steroid.He is feeling better.Hypercapnia has Improved.,he has been started on oral prednisone.TCU was recommended by PT, but there is no bed available.Patient and family has refused to go [facility].Patient can be discharged home with home PT in 24 hour if keep improving.This was also discussed with case management. Management plan was discussed in detail with patient.Education was provided
[2017-05-01] MEDS: guaiFENesin 100 mg/5 ml Syrup UD PO PRN (21:12)
[2017-05-02] MEDS: Levalbuterol 0.63 MG/3 ML Inhal Soln UD IH SCH ×3 (01:03→14:04)
[2017-05-02 06:15] LABS: ADD MANUAL DIFF? NO
[2017-05-02 06:18] LABS: BASO # 0.01 K/mm3 (0.0-2.0); BASO % 0.1 % (0.0-3.0); EOS # 0.1 (0.0-0.7); EOS % 0.6 % (1.5-5.0); GRAN # 8.92 (1.4-6.5); GRAN % 72.2 % (50.0-68.0); HEMATOCRIT 42.6 % (42.0-52.0); LYMPH # 2.1 (1.2-3.4); LYMPH % 16.8 % (22.0-35.0); MEAN CELL VOLUME 84.5 fL (80.0-105.0); MEAN CORPUSCULAR HEMOGLOBIN 24.2 pg (25.0-35.0); MEAN CORPUSCULAR HGB CONC 28.6 g/dl (31.0-37.0); MEAN PLATELET VOLUME 10.6 fl (7.0-11.0); MONO # 1.3 (0.1-0.6); MONO % 10.3 % (1.0-6.0); PLATELET COUNT 211 10^3/uL (120.0-450.0); WHITE BLOOD COUNT 12.4 10^3/ul (4.5-11.0)
[2017-05-02 06:32] LABS: ALKALINE PHOSPHATASE 59 U/L (38-133); ALT/SGPT 32 U/L (7-56); AST/SGOT 29 U/L (15-59); BILIRUBIN,TOTAL 0.5 mg/dL (0.2-1.3); BLOOD UREA NITROGEN 31 mg/dL (7-21); CHLORIDE 88 mmol/L (98-107); GFR AFRICAN-AMERICAN > 60; GLUCOSE,RANDOM 116 mg/dL (70-110); POTASSIUM 3.4 mmol/L (3.6-5.0); SODIUM 140 mmol/L (132-148); TOTAL PROTEIN 7.4 g/dL (5.8-8.3)
[2017-05-02 06:41] VITALS: O2SAT 95
[2017-05-02 06:41] LABS: CARBON DIOXIDE 46 mmol/L (21-33)
[2017-05-02] MEDS: Budesonide 0.5 mg/2 ml Inhal Susp UD IH SCH (07:45)
[2017-05-02] MEDS: Arformoterol 15 mcg/2 ml Inh Sol IH SCH (07:45)
[2017-05-02] MEDS: Insulin Lispro (humaLOG) MEDIUM Coverage SC SCH ×2 (09:05→11:15)
[2017-05-02] MEDS: Pantoprazole 40 mg EC Tab PO SCH (09:09)
--- NOTE | 2017-05-02 09:25 | PN ---
DATE: 05/02/2017 The patient was seen and examined at bedside. He is actually sitting up in chair, eating breakfast. He is less short of breath and does not complain of cough. PHYSICAL EXAMINATION: VITAL SIGNS: His oxygen saturation is 92% on room air, temperature 98, pulse 54, blood pressure 123/ 52. His intake and output is negative 1100. HEAD, EARS, NOSE AND THROAT: Within normal limits. NECK: Supple with no jugular vein distention. CHEST: Symmetrical. HEART: S1, S2. No S3. Irregular. LUNGS: Markedly diminished breath sounds at both bases with prolonged expiration and end expiratory wheezes. GASTROINTESTINAL: Soft, nontender. No organomegaly. EXTREMITIES: No pedal edema. SKIN: Clear with no skin rashes, no cyanosis. NEUROLOGIC: Limited at present time. LABORATORY DATA: Today's WBC is 12.4, hemoglobin of 12.2, potassium 3.4, sodium 140. ASSESSMENT: 1. Chronic obstructive pulmonary disease with exacerbation. 2. Chronic congestive heart failure. 3. Left upper lobe mass. 4. Obstructive sleep apnea. 5. Pulmonary hypertension. PLAN: The patient is improving with current conservative therapy and BiPAP application at bedtime. He should continue with bronchodilator inhalation treatments. He is end-stage pulmonary disease and at high risk of pulmonary complications. Luke Coulter MD cc: [id number] TT: 05/02/2017 09:24:44 Confirmation # [id number] Dictation # [id number]
--- NOTE | 2017-05-02 10:29 | CP.PCM.DIS ---
Provider - Provider Date of Admission: 04/28/17 15:11 Attending physician: Cherrie Mcghee MD Primary care physician: Jose C Ambrocio MD Consults: Cardiology - Dr. Josiah Harris - Dr. Edmond ID - Dr. Quarles Time Spent in preparation of Discharge (in minutes): 45 Hospital Course - Lab Results Lab Results: Micro Results 04/29/17 08:34 Urine Urine Culture - Final <10,000 CFU/ML. MULTIPLE SPECIES. PROBABLE CONTAMINATION. Most Recent Lab Values WBC 12.4 10^3/ul (4.5-11.0) H 05/02/17 06:13 RBC 5.04 10^6/uL (3.5-6.1) 05/02/17 06:13 Hgb 12.2 gm/dL (14.0-18.0) L 05/02/17 06:13 Hct 42.6 % (42.0-52.0) 05/02/17 06:13 MCV 84.5 fL (80.0-105.0) 05/02/17 06:13 MCH 24.2 pg (25.0-35.0) L 05/02/17 06:13 MCHC 28.6 g/dl (31.0-37.0) L 05/02/17 06:13 RDW 16.0 % (11.5-14.5) H 05/02/17 06:13 Plt Count 211 10^3/uL (120.0-450.0) 05/02/17 06:13 MPV 10.6 fl (7.0-11.0) 05/02/17 06:13 Gran % 72.2 % (50.0-68.0) H 05/02/17 06:13 Lymph % (Auto) 16.8 % (22.0-35.0) L 05/02/17 06:13 Cocke % (Auto) 10.3 % (1.0-6.0) H 05/02/17 06:13 Eos % (Auto) 0.6 % (1.5-5.0) L 05/02/17 06:13 Baso % (Auto) 0.1 % (0.0-3.0) 05/02/17 06:13 Gran # 8.92 (1.4-6.5) H 05/02/17 06:13 Lymph # 2.1 (1.2-3.4) 05/02/17 06:13 Cocke # 1.3 (0.1-0.6) H 05/02/17 06:13 Eos # 0.1 (0.0-0.7) 05/02/17 06:13 Baso # 0.01 K/mm3 (0.0-2.0) 05/02/17 06:13 PT 11.0 Seconds (9.9-11.8) 04/29/17 08:00 INR 1.02 (0.93-1.08) 04/29/17 08:00 APTT 26.8 Seconds (23.7-30.8) 04/29/17 08:00 pCO2 97 mm/Hg (35-45) H* 04/28/17 17:22 pO2 50.0 mm/Hg (80-100) L 04/28/17 17:22 HCO3 56.1 mmol/L (21-28) H* 04/28/17 17:22 ABG pH 7.37 (7.35-7.45) 04/28/17 17:22 ABG Total CO2 59.1 mmol.L (22-28) H 04/28/17 17:22 ABG O2 Saturation 89.6 % (95-98) L 04/28/17 17:22 ABG O2 Content 12.8 ML/dl (15-23) L 04/28/17 17:22 ABG Base Excess 26.1 mmol/L (-2.0-3.0) H 04/28/17 17:22 ABG Hemoglobin 10.6 g/dL (11.7-17.4) L 04/28/17 17:22 ABG Carboxyhemoglobin 3.2 % (0.5-1.5) H 04/28/17 17:22 POC ABG HHb (Measured) 9.9 % (0-5) H 04/28/17 17:22 ABG Methemoglobin 1.3 % (0.0-3.0) 04/28/17 17:22 ABG O2 Capacity 14.3 mL/dl (16-24) L 04/28/17 17:22 ABG Potassium 4.1 mmol/L (3.6-5.2) 04/28/17 15:23 Hgb O2 Saturation 85.7 % (95.0-98.0) L 04/28/17 17:22 Sodium 142.0 mmol/L (132-148) 04/28/17 15:23 Chloride 99.0 mmol/L (98-107) 04/28/17 15:23 Glucose 118 mg/dl (75-110) H 04/28/17 15:23 Lactate 0.4 mmol/L (0.7-2.1) L 04/28/17 15:23 FiO2 40.0 % 04/28/17 17:22 Sodium 140 mmol/L (132-148) 05/02/17 06:13 Potassium 3.4 mmol/L (3.6-5.0) L 05/02/17 06:13 Chloride 88 mmol/L (98-107) L 05/02/17 06:13 Carbon Dioxide 46 mmol/L (21-33) H 05/02/17 06:13 Anion Gap 9 (10-20) L 05/02/17 06:13 BUN 31 mg/dL (7-21) H 05/02/17 06:13 Creatinine 0.9 mg/dL (0.5-1.4) 05/02/17 06:13 Est GFR ( Amer) > 60 05/02/17 06:13 Est GFR (Non-Af Amer) > 60 05/02/17 06:13 POC Glucose (mg/dL) 131 mg/dL (65-110) H 05/02/17 07:10 Random Glucose 116 mg/dL (70-110) H 05/02/17 06:13 Calcium 9.0 mg/dL (8.4-10.5) 05/02/17 06:13 Total Bilirubin 0.5 mg/dL (0.2-1.3) 05/02/17 06:13 AST 29 U/L (15-59) 05/02/17 06:13 ALT 32 U/L (7-56) 05/02/17 06:13 Alkaline Phosphatase 59 U/L (38-133) 05/02/17 06:13 Lactate Dehydrogenase 356 U/L (333-699) 04/28/17 13:40 Total Creatine Kinase 26 U/L (35-230) L 04/28/17 13:40 Troponin I < 0.01 ng/mL 04/28/17 13:40 NT-Pro-B Natriuret Pep 514 pg/mL (0-450) H 04/28/17 13:40 Total Protein 7.4 g/dL (5.8-8.3) 05/02/17 06:13 Albumin 3.6 g/dL (3.0-4.8) 05/02/17 06:13 Globulin 3.7 gm/dL 05/02/17 06:13 Albumin/Globulin Ratio 1.0 (1.1-1.8) L 05/02/17 06:13 Lipase 51 U/L (23-300) 04/28/17 13:40 Procalcitonin < 0.05 NG/ML (0.19-0.49) L 04/28/17 13:40 Arterial Blood Potassium 4.1 mmol/L (3.6-5.2) 04/28/17 15:23 Urine Color Yellow (YELLOW) 04/29/17 06:45 Urine Appearance Clear (CLEAR) 04/29/17 06:45 Urine pH 7.0 (4.7-8.0) 04/29/17 06:45 Ur Specific Lima 1.015 (1.005-1.035) 04/29/17 06:45 Urine Protein Negative mg/dL (<30 mg/dL) 04/29/17 06:45 Urine Glucose (UA) Negative mg/dL (NEGATIVE) 04/29/17 06:45 Urine Ketones Negative mg/dL (NEGATIVE) 04/29/17 06:45 Urine Blood Negative (NEGATIVE) 04/29/17 06:45 Urine Nitrate Negative (NEGATIVE) 04/29/17 06:45 Urine Bilirubin Negative (NEGATIVE) 04/29/17 06:45 Urine Urobilinogen 0.2 E.U./dL (<1 E.U./dL) 04/29/17 06:45 Ur Leukocyte Esterase Negative Kristina/uL (NEGATIVE) 04/29/17 06:45 Ur L.pneumophila Ag Negative (NEGATIVE) 04/29/17 07:38 Discharge Exam - Head Exam Head Exam: ATRAUMATIC, NORMOCEPHALIC Discharge Plan - Discharge Medications Prescriptions: ALPRAZolam [Xanax] 0.25 mg PO BID PRN #12 tab PRN Reason: Anxiety Doxycycline Hyclate 100 mg PO BID #6 capsule Furosemide [Lasix] 40 mg PO BID #60 udc guaiFENesin [guaifENESIN] 100 mg PO TID #15 udc Prednisone [Deltasone] 20 mg PO DAILY #5 tablet - Follow Up Plan Condition: FAIR Disposition: REHAB FACILITY/REHAB UNIT Instructions: Emphysema (GEN), COPD (Chronic Obstructive Pulmonary Disease) (DC ) Additional Instructions: 1. Follow up with PMD Dr. Ambrocio in 1 week. 2. Follow up with DR. edmond pulmonary next week. 3. Continue oxygen and BIPAP at night. 4. Fall precautions. Referrals: Jose C Ambrocio MD [Primary Care Provider] -
[2017-05-02] MEDS: diltiaZEM 300 mg/24 Hours CD Cap PO SCH (11:08)
[2017-05-02] MEDS: TRACLEER 125 MG PO SCH (11:09)
[2017-05-02] MEDS: Enoxaparin 40 mg Syringe SC SCH (11:09)
[2017-05-02 11:11] VITALS: BP 146/73; PULSE 81
--- NOTE | 2017-05-02 12:07 | PN ---
DATE: 05/02/2017 The patient is in bed, seen earlier this morning. No fevers, no chills. PHYSICAL EXAMINATION: VITAL SIGNS: Temperature is 98. Blood pressure is 140/70, respiratory rate of 16. HEENT: Unremarkable. NECK: Supple. LUNGS: Decreased breath sounds. HEART: Normal S1, S2. ABDOMEN: Soft, nontender. LABORATORY EXAMINATION: Reveals a white count of 12,400, hemoglobin of 12, platelets of 211. BUN of 31, creatinine of 0.9. Cultures are noted. The patient is on p.o. doxycycline. ASSESSMENT AND PLAN: A 71-year-old male with hypertension, chronic obstructive lung disease, gastroe sophageal reflux, coronary artery disease, history of percutaneous coronary intervention and stent pl acement, diabetes, obstructive sleep apnea, chronic obstructive lung disease exacerbation, currently day #5 of p.o. doxycycline. Would complete 7 days. The patient for discharge today. Jurgen Carreon MD cc: [id number] TT: 05/02/2017 12:07:10 Confirmation # [id number] Dictation # [id number] tn
[2017-05-02 12:32] VITALS: TEMP 99
--- NOTE | 2017-05-05 14:36 | PQF SEPSIS ---
05/05/17 Dr. Blue Mcghee, Pulmonary consultants document "sepsis syndrome," appeals nurse mentions "sepsis " in his diagnoses list. Please clarify whether patient did or did not have a systemic sepsis. If you agree with systemic sepsis, was this present on admission? Thank you. Clarification of your documentation is requested to better reflect the severity of illness and intensity of treatment of your patient. Indicators present [] Temp < 96.8 or > 100.4 [] WBC count > 12,000/mm3 or <000/mm3 or 10% immature neutrophils [] Heart Rate > 90 [] Respiratory Rate > 20 [] Fever or hypothermia [] Chills [] Positive blood cultures [] Hypotension [] Metabolic acidosis (Elevated lactate level, anion gap or reduced blood pH) [] Acute confusion /Altered Mental Status [] Shock [] Other: [] Location in the medical record that reflects the above clinical findings: [] Treatment Provided: [] PHYSICIAN'S RESPONSE Based on your medical judgment of the clinical indicators outlined above, are you treating this patient for a known or suspected: [] Sepsis / Septicemia Please specify organism if known [] [] SIRS (Systemic Inflammatory Response Syndrome) [] Severe Sepsis (Sepsis with Associated Organ Dysfunction) [] Fever of Unknown Origin [] Other, please indicate: [] [] If Unable to Determine, please check the box, sign and date. Present On Admission (POA) Indicator: [] Present at the time of admission [] Not present at the time of admission [] Clinically Undetermined In responding to this query, please exercise your independent professional judgment. The fact that a question is asked does not imply that any particular answer is desired or expected. Thank you for your clarification on this documentation. If you have any questions please call:[ ] * Thank you, [ ] cashier receptionist MARINO
--- NOTE | 2017-05-05 14:38 | PQF RESP ---
05/05/17 Dr. Blue Mcghee, Respiratory failure with hypercapnia is documented throughout this record. Please indicate whether this is acute, chronic, or both. Thank you. Clarification of your documentation is requested to better reflect the severity of illness and intensity of treatment of your patient. Indicators present [] Use of Home Oxygen [] Respiratory rate > 28 or <8/min (Labored respirations) [] PCO2 > 50 mm Hg or (Hypercapnia) (somnolence) [] PaO2 < 60 mm Hg or Hypoxemia (confusion) [] ABG blood gas pH < 7.35 [] SpO2 < 90% sat on Room Air [] Cyanosis [] Unable to Speak in Full Sentences [] Use of Accessory Muscles / Tripoding [] Wheezing [] Other: [] Location in the medical record that reflects the above clinical findings: [] Treatment Provided: [] PHYSICIAN'S RESPONSE Based on your medical judgment of the clinical indicators outlined above, are you treating this patient for a known or suspected: [] Acute Respiratory Failure (hypoxia or hypercapnia) [] Chronic Respiratory Failure (hypoxia or hypercapnia) [] Acute on Chronic Respiratory Failure (hypoxia or hypercapnia) [] Hypoxemia please specify ACUTE, CHRONIC or ACUTE on CHRONIC [] Other []_ [] If unable to determine, please check the box, sign and date. Present On Admission (POA) Indicator: [] Present at the time of admission [] Not present at the time of admission [] Clinically Undetermined In responding to this query, please exercise your independent professional judgment. The fact that a question is asked does not imply that any particular answer is desired or expected. Thank you for your clarification on this documentation. If you have any questions please call:[ ] * Thank you, [ ] survey research center director Chronic Respiratory Failure Description: Respiratory failure is a syndrome in which the respiratory system fails in one or both of its gas exchange functions: oxygenation and carbon dioxide elimination. In theory, respiratory failure is defined as a Pa02 value of <60 mm/Hg or a PaC02 of >50 mm/Hg. However, these values may be affected by renal compensation. Respiratory failure may be acute or chronic. While acute respiratory failure is characterized by life-threatening derangement in arterial blood gases and acid-base balance, the manifestations of chronic respiratory failure are less dramatic and may not be as readily apparent. Classifications: Respiratory failure may be classified as hypoxemic (usually characterized by Pa02 of <60 mm/Hg) or hypercapnic (usually characterized by PaC02 >50 mm/Hg) and either may be acute or chronic. Chronic hypercapnic respiratory failure develops over time and allows for renal compensation and an increase in bicarbonate concentration; therefore the pH is usually only slightly decreased. The distinction between acute and chronic hypoxemic respiratory failure cannot readily be made on the basis of ABGs; the clinical markers of chronic hypoxemia, such as polythycemia or cor pulmonale suggest a long standing disorder (chronic hypoxemic respiratory failure). Clinical Indicators: dyspnea at rest or "chronic" dyspnea, concomitant conditions such as polycythemia or cor pulmonale, requirement for continuous oxygen support, forced expiratory volume in one second (FEV1) of 49 or less, pursed lip breathing, "barrel" chest, hyperinflation by CXR, muscle wasting, malnutrition/obesity, poor exercise capacity, peripheral edema, description as a "blue bloater" (usually associated with chronic, obstructive bronchitis) or "pink puffer" (usually associated with emphysema) Risks: Chronic Hypoxemic Respiratory Failure - COPD, pulmonary fibrosis, asthma , pulmonary arterial hypertension, granulomatous lung diseases, congenital heart disease, bronchiectasis, kyphoscoliosis, obesity; Chronic Hypercapnic Respiratory Failure - COPD, severe asthma, myasthenia gravis, polyneuropathy, polio, head and cervical spine injuries, obesity hypoventilation syndrome. Treatment: supplemental oxygen, bronchodilators, corticosteroids, adequate nutrition, lung transplant References: Am. J. Respir. Crit. Care Med. "Global Strategy for the Diagnosis, Management and Prevention of COPD: GOLD Exectuive Summary," Rashida Arshad Anzueto - 2007; Proceedings of the [employer] "Mechanisms and Measurements of Dyspnea in COPD," Vishnu - 2006; WebMD; Respiratory Failure, Jaret Mckeon MD - 05/2006; Rogers's Principles of Internal Medicine, 17th edition. Acute Respiratory Failure Acute Respiratory Failure indicators include: ~Respirations >28 ~Air hunger ~Use of accessory muscles of respiration ~Inability to speak in full sentences Cyanosis ~Pulse ox <90% RA or <95% on O2 pH <7.35 or >7.45 ~pO2 < 60 mm Hg (or 10mm below COPD patient's baseline) ~pCO2 >50mm Hg (or 10mm above COPD patient's baseline) "Respiratory failure may be assigned as a principal diagnosis when it is the condition established after study to be chiefly responsible for occasioning admission to the hospital. The fact that the respiratory failure was managed without intubation and mechanical ventilation does not preclude its use." [facility], [facility] 1988, p. 7 MTDD
== END 2017-05-02 15:53 | disposition home or self-care (01) | DRG 190 ==
LOC: ED 13:16 → ERH 15:11 → 2RSO 18:04
PROVIDERS: ADMIT Internal Medicine; ATTEND Internal Medicine
DX: J44.1 Chronic obstructive pulmonary disease with (acute) exacerbation (principal); G93.40 Encephalopathy, unspecified; J96.21 Acute and chronic respiratory failure with hypoxia; A41.9 Sepsis, unspecified organism; E87.4 Mixed disorder of acid-base balance; J96.11 Chronic respiratory failure with hypoxia; J96.22 Acute and chronic respiratory failure with hypercapnia; I50.9 Heart failure, unspecified; I27.2 Other secondary pulmonary hypertension; J44.0 Chronic obstructive pulmonary disease with (acute) lower respiratory infection; I25.10 Atherosclerotic heart disease of native coronary artery without angina pectoris; G47.33 Obstructive sleep apnea (adult) (pediatric); H54.8 Legal blindness, as defined in USA; I11.0 Hypertensive heart disease with heart failure; D64.9 Anemia, unspecified; E11.9 Type 2 diabetes mellitus without complications; K21.9 Gastro-esophageal reflux disease without esophagitis; Z66 Do not resuscitate; Z87.891 Personal history of nicotine dependence; Z90.49 Acquired absence of other specified parts of digestive tract; Z95.5 Presence of coronary angioplasty implant and graft; Z99.81 Dependence on supplemental oxygen; Z85.118 Personal history of other malignant neoplasm of bronchus and lung; L40.9 Psoriasis, unspecified; F41.9 Anxiety disorder, unspecified; F32.89 Other specified depressive episodes; R40.2412 Glasgow coma scale score 13-15, at arrival to emergency department; R00.0 Tachycardia, unspecified; R39.15 Urgency of urination; R35.0 Frequency of micturition; R91.8 Other nonspecific abnormal finding of lung field; Z87.898 Personal history of other specified conditions

== ENCOUNTER 2017-05-12 14:50 | Inpatient (IN) | payer MEDICARE ==
[2017-05-12] MEDS: Albuterol-Ipratrop 3 mg / 0.5 (3 ml) UD IH SCH ×3 (15:18→15:54)
--- NOTE | 2017-05-12 15:28 | ED PDOC ---
Arrival/HPI - General Time Seen by Provider: 05/12/17 14:57 Historian: Patient, Family - History of Present Illness Narrative History of Present Illness (Text): 05/12/17 14:57 A 71 year old male, whose past medical history includes CHF and COPD, is brought to the emergency department by family for evaluation of difficulty breathing. Family states the patient appears to have some difficulty breathing but the patient himself denies any shortness of breath or dyspnea on exertion. Patient reports a dry cough for the past few days but he denies any fever, chest pain, or other complaints at this time. PMD: Dr. 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 Thickened, whitish-yellowish skin patch) Hx Psoriasis: Yes Other/Comment: Generalized body surface area, including extremities and torso with reddened, flushed skin with dry, whitish-yellow, thick, scaly, flaky patches. - Musculoskeletal/Rheumatological Hx Falls: Yes (past) - Gastrointestinal Hx Gastrointestinal Disorders: Yes (reflux) - Genitourinary/Gynecological Hx Genitourinary Disorders: Yes Hx Reproductive Disorders: No Other/Comment: urinary urgency/frequency - Psychiatric Hx Psychophysiologic Disorder: Yes Hx Anxiety: Yes Hx Depression: Yes Hx Substance Use: No - Surgical History Hx Appendectomy: Yes - Anesthesia Hx Anesthesia Reactions: No Hx Malignant Hyperthermia: No - Suicidal Assessment Feels Threatened In Home Enviroment: No Family/Social History - Physician Review Nursing Documentation Reviewed: Yes Family/Social History: Unknown Family HX Smoking Status: Former Smoker Hx Alcohol Use: No Hx Substance Use: No Hx Substance Use Treatment: No Allergies/Home Meds Allergies/Adverse Reactions: Allergies No Known Allergies Allergy (Verified 05/12/17 15:21) Physical Exam - Physical Exam Narrative Physical Exam (Text): - Review of Systems Constitutional: Normal. absent: Fatigue, Weight Change, Fevers Eyes: Normal ENT: Normal Respiratory: Dry cough. absent: SOB, Sputum Cardiovascular: Normal absent: Chest pain, Palpitations, Syncope Gastrointestinal: Normal absent: Abdominal pain, Diarrhea, Nausea, Vomiting Genitourinary: Normal. absent: Dysuria, Frequency, Hematuria Musculoskeletal: Normal. absent: Arthralgias, Back Pain, Neck Pain Skin: Normal Neurological: Normal absent: Focal Weakness Endocrine: Normal Hemo/Lymphatic: Normal Psychiatric: Normal - Physical exam Patient appears age appropriate, speaking full sentences without difficulty - Systems Exam Head: Present: Atraumatic, Normocephalic Pupils: Present: PERRL Extraocular Muscles: Present: EOMI Conjunctiva: Present: Normal Mouth: Present: Moist Mucous Membranes Neck: Present: Normal Range of Motion. No: MIDLINE TENDERNESS, Paraspinal Tenderness Respiratory/Chest: Present: Expiratory wheezing. No: Respiratory Distress, Accessory Muscle Use, Tachypneic Cardiovascular: Present: Regular Rate and Rhythm, Normal S1, S2, Peripheral Pulses Present. No: Murmurs Abdomen: Present: Normal Bowel Sounds, No: Tenderness, Peritoneal Signs, Rebound, Guarding, Distention Back: Present: Normal Inspection. No: Midline Tenderness, Paraspinal Tenderness Upper Extremity: Present: Normal Inspection. No: Cyanosis, Edema Lower Extremity: Present: Normal Inspection. No: Edema Neurological: Present: GCS=15, Speech Normal, cranial nerves II through XII fully intact with no cerebellar abnormality, neuro-sensory fully intact. No focal neurological deficits. Skin: Present: Warm, Dry, Normal Color. No: Rashes Lymphatic: Present: OX3, NI, NC Psychiatric: Present: Alert, Oriented x 3, Normal Insight, Normal Concentration Vital Signs Reviewed: Yes Vital Signs Temp Pulse Resp BP Pulse Ox 05/12/17 16:17 90 20 119/72 93 L 05/12/17 15:50 18 95 05/12/17 15:38 99.3 F 05/12/17 15:11 87 18 127/67 95 Blood Pressure: Normal Pulse: Regular Respiratory Rate: Normal Appearance: Positive for: Well-Appearing, Non-Toxic, Comfortable Pain Distress: None Mental Status: Positive for: Alert and Oriented X 3 Medical Decision Making ED Course and Treatment: 05/12/17 14:57 Impressions A 71 year old male with hx of copd with wheezing and dry cough. Differential Diagnosis chronic obstructive pulmonary disease vs. congestive heart failure vs. pneumonia Plan -- EKG -- Chest X-ray -- Labs -- Duoneb and Solu-Medrol -- Reassess and disposition Progress Notes: EKG: Ordered, reviewed, and independently interpreted the EKG. Rate : 86 BPM Rhythm : Sinus rhythm Interpretation : No ST-segment elevations. Interpreted by me. 05/12/17 15:57 Chest xray Impression: As read by me, shows cardiomegaly, poorly visualized costophrenic angles, mild vascular congestion, no pneumothorax. 05/12/17 16:27 on reeval, pt's lungs clear to ausc b/l CO2 elevated resp called for bipap pt will be admitted to tele for copd exacerbation dw Dr. Avila, accepted pt to his service pt and family aware of and agree with plan - Lab Interpretations Lab Results: 05/12/17 15:15 05/12/17 15:15 Lab Results 05/12/17 15:15: Sodium 140, Potassium 4.1, Chloride 91 L, Carbon Dioxide 45 H, Anion Gap 8 L, BUN 17, Creatinine 0.9, Est GFR ( Amer) > 60, Est GFR (Non -Af Amer) > 60, Random Glucose 169 H, Calcium 8.4, Total Bilirubin 0.5, AST 16, ALT 34, Alkaline Phosphatase 73, Lactate Dehydrogenase 275 L, Total Creatine Kinase < 20 L, Troponin I < 0.01, NT-Pro-B Natriuret Pep 511 H, Total Protein 6.6, Albumin 3.3, Globulin 3.3, Albumin/Globulin Ratio 1.0 L 05/12/17 15:15: PT 10.7, INR 0.99, APTT 28.0 05/12/17 15:15: WBC 11.0, RBC 4.42, Hgb 10.9 L, Hct 39.9 L, MCV 90.3, MCH 24.7 L , MCHC 27.3 L, RDW 15.9 H, Plt Count 149, MPV 10.0, Gran % 88.2 H, Lymph % (Auto ) 5.4 L, [place] % (Auto) 5.4, Eos % (Auto) 0.8 L, Baso % (Auto) 0.2, Gran # 9.72 H , Lymph # 0.6 L, [place] # 0.6, Eos # 0.1, Baso # 0.02 I have reviewed the lab results: Yes - RAD Interpretation Radiology Orders: 05/12/17 14:59 CHEST PORTABLE [RAD] Stat - Medication Orders Current Medication Orders: Discontinued Medications Albuterol/Ipratropium (Duoneb 3 Mg/0.5 Mg (3 Ml) Ud) 3 ml IH Q15M SYDNEY Stop: 05/12/17 15:31 Last Admin: 05/12/17 15:54 Dose: 3 ml Methylprednisolone (Solu-Medrol) 125 mg IVP STAT STA Stop: 05/12/17 14:58 Last Admin: 05/12/17 15:18 Dose: 125 mg - Scribe Statement The provider has reviewed the documentation as recorded by the Scribe 15:22 Haylee Varun training with Minerva Jones Provider Scribe Attestation: All medical record entries made by the Scribe were at my direction and personally dictated by me. I have reviewed the chart and agree that the record accurately reflects my personal performance of the history, physical exam, medical decision making, and the department course for this patient. I have also personally directed, reviewed, and agree with the discharge instructions and disposition. Disposition/Present on Arrival - Present on Arrival Any Indicators Present on Arrival: No History of DVT/PE: No History of Uncontrolled Diabetes: No Urinary Catheter: No History Surgical Site Infection Following: None - Disposition Have Diagnosis and Disposition been Completed?: Yes Diagnosis: COPD exacerbation Disposition: HOSPITALIZED Disposition Time: 16:32 Patient Plan: Admission Condition: FAIR Referrals: Jose C Ambrocio MD [Primary Care Provider] - Follow up with primary
[2017-05-12 15:29] LABS: BASO # 0.02 K/mm3 (0.0-2.0); BASO % 0.2 % (0.0-3.0); EOS # 0.1 (0.0-0.7); EOS % 0.8 % (1.5-5.0); GRAN # 9.72 (1.4-6.5); GRAN % 88.2 % (50.0-68.0); HEMOGLOBIN 10.9 gm/dL (14.0-18.0); LYMPH # 0.6 (1.2-3.4); LYMPH % 5.4 % (22.0-35.0); MEAN CELL VOLUME 90.3 fL (80.0-105.0); MEAN CORPUSCULAR HEMOGLOBIN 24.7 pg (25.0-35.0); MEAN CORPUSCULAR HGB CONC 27.3 g/dl (31.0-37.0); MONO # 0.6 (0.1-0.6); MONO % 5.4 % (1.0-6.0); PLATELET COUNT 149 10^3/uL (120.0-450.0); RBC 4.42 10^6/uL (3.5-6.1); RED CELL DISTRIBUTION WIDTH 15.9 % (11.5-14.5)
[2017-05-12 15:34] LABS: ALBUMIN 3.3 g/dL (3.0-4.8); ALT/SGPT 34 U/L (7-56); AST/SGOT 16 U/L (15-59); BLOOD UREA NITROGEN 17 mg/dL (7-21); CALCIUM 8.4 mg/dL (8.4-10.5); GFR AFRICAN-AMERICAN > 60; GFR NON-AFRICAN AMERICAN > 60
[2017-05-12 15:42] LABS: INR 0.99 (0.93-1.08); PROTHROMBIN TIME 10.7 Seconds (9.9-11.8)
[2017-05-12 15:46] LABS: B-TYPE NATRIURETIC PEPTIDE 511 pg/mL (0-450)
[2017-05-12 15:48] LABS: TROPONIN I < 0.01 ng/mL
--- NOTE | 2017-05-12 16:13 | RAD ---
HISTORY: cough COMPARISON: 04/28/2017 FINDINGS: LUNGS: Bibasilar linear atelectasis. No acute infiltrate. Right lung apex partially obscured. PLEURA: Minimal blunting of right costophrenic angle may reflect small pleural effusion. Left costophrenic angle is clear. No pneumothorax. CARDIOVASCULAR: Mild cardiomegaly. No significant congestive change. OSSEOUS STRUCTURES: No significant abnormalities. VISUALIZED UPPER ABDOMEN: Normal. OTHER FINDINGS: None. IMPRESSION: No acute infiltrate. Bibasilar subsegmental atelectasis.
[2017-05-12 17:27] LABS: ARTERIAL BLOOD GAS HCO3 50.9 mmol/L (21-28); ARTERIAL BLOOD GAS HEMOGLOBIN 10.7 g/dL (11.7-17.4); ARTERIAL BLOOD GAS O2 CAPACITY 14.5 mL/dl (16-24); ARTERIAL BLOOD GAS O2 CONTENT 13.1 ML/dl (15-23); ARTERIAL BLOOD GAS O2 SAT 90.6 % (95-98); ARTERIAL BLOOD GAS PCO2 101 mm/Hg (35-45); ARTERIAL BLOOD GAS PH 7.31 (7.35-7.45)
[2017-05-12] MEDS ORDERED: Levalbuterol 0.63 MG/3 ML Inhal Soln UD IH PRN (17:43)
[2017-05-12] MEDS ORDERED: BOSENTAN 125 MG PO SCH (18:00)
[2017-05-12] MEDS: guaiFENesin 100 mg/5 ml Syrup UD PO SCH (18:52)
--- NOTE | 2017-05-12 18:57 | CP.PCM.HP ---
<DanielLeighann palacios - Last Filed: 05/12/17 21:18> History of Present Illness - History of Present Illness History of Present Illness: CC: Somnolence Patient is a 71 year old male who presented with to the ER with his Niece ( Bioinformatics Team Member). Bioinformatics Team Member. stated that he presented with symptoms of Somnolence and Lethargy x 1 day. Bioinformatics Team Member stated that she found the patient leaning over while eating his breakfast and was slightly worried. She received a call later that evening from a family member, and was told that the patient was found sleeping with his mouth turning blue, which prompted her to call ambulance. Bioinformatics Team Member also stated that patient had difficulty urinating x 1 day. When trying to urinate, he had bowel movement instead x 3. [place] [facility] [place] ROS limited due to patient status (sleeping/Developmentally delayed). Patient is on 4L of 02 at home. Bioinformatics Team Member states that he his compliant with all of his medications. PMH - Legally Blind, Pulm HTN, CHF, Diabetes, HTN, developmental delay (per niece), HTN, GERD, CAD, Left Lung Mass, Psoriasis, COPD PSH - Hernia (10 years ago) Hospitalizations - 1 week ago for same symptoms. Allergies - NKDA Social - Former Smoker (quit 10 years ago) Fam Hx - Sister - DMI Present on Admission - Present on Admission Any Indicators Present on Admission: No Review of Systems - Review of Systems Systems not reviewed;Unavailable: Respiratory Distress - Constitutional Constitutional: Daytime Sleepiness, Lethargy, Sleep Apnea - EENT Eyes: Loss of Vision Additional comments: Central Cyanosis (lips) - Cardiovascular Cardiovascular: Dyspnea on Exertion, Pedal Edema. absent: Chest Pain - Gastrointestinal Gastrointestinal: Change in Bowel Habits Past Patient History - Infectious Disease Hx of Infectious Diseases: None - Tetanus Immunizations Tetanus Immunization: Up to Date - Past Social History Smoking Status: Former Smoker - CARDIAC Hx Hypertension: Yes - PULMONARY Hx Chronic Obstructive Pulmonary Disease (COPD): Yes (end stage) - NEUROLOGICAL Hx Neurological Disorder: Yes (Blind since the age of 1.) - HEENT Hx Blind: Yes (since age 1) - RENAL Hx Renal Failure: Yes - ENDOCRINE/METABOLIC Hx Diabetes Mellitus Type 2: Yes (niddm) - HEMATOLOGICAL/ONCOLOGICAL Hx Blood Disorders: Yes Hx Cancer: Yes (lung mass) - INTEGUMENTARY Hx Dermatological Problems: Yes (Reddened, flush skin, dry and taut. Thickened, whitish-yellowish skin patch) Hx Psoriasis: Yes Other/Comment: Generalized body surface area, including extremities and torso with reddened, flushed skin with dry, whitish-yellow, thick, scaly, flaky patches. - MUSCULOSKELETAL/RHEUMATOLOGICAL Hx Falls: Yes (past) - GASTROINTESTINAL Hx Gastrointestinal Disorders: Yes (reflux) - GENITOURINARY/GYNECOLOGICAL Hx Genitourinary Disorders: Yes Hx Reproductive Disorders: No Other/Comment: urinary urgency/frequency - PSYCHIATRIC Hx Psychophysiologic Disorder: Yes Hx Anxiety: Yes Hx Depression: Yes Hx Substance Use: No - SURGICAL HISTORY Hx Appendectomy: Yes - ANESTHESIA Hx Anesthesia Reactions: No Hx Malignant Hyperthermia: No Meds Home Medications: Home Medication List Medication Instructions Recorded Confirmed Type predniSONE [predniSONE Tab] See Taper PO DAILY #30 tab 05/14/17 Rx Allergies/Adverse Reactions: Allergies Allergy/AdvReac Type Severity Reaction Status Date / Time No Known Allergies Allergy Verified 05/12/17 15:21 Physical Exam - Constitutional Appears: In Acute Distress - Head Exam Head Exam: ATRAUMATIC, NORMOCEPHALIC - Eye Exam Additional comments: Legally Blind - ENT Exam ENT Exam: Mucous Membranes Moist - Neck Exam Neck exam: Negative for: Lymphadenopathy, Thyromegaly - Respiratory Exam Respiratory Exam: Wheezes. absent: Rales, Rhonchi - Cardiovascular Exam Cardiovascular Exam: +S1, +S2. absent: Diastolic murmur, Rubs, Systolic Murmur - GI/Abdominal Exam GI & Abdominal Exam: Distended, Soft. absent: Tenderness - Neurological Exam Additional comments: Not Awake or Alert - Skin Skin Exam: Dry, Intact Additional comments: Hematoma on Abdomen Results - Vital Signs Recent Vital Signs: Last Vital Signs Temp 99.3 F 05/12/17 15:38 Pulse 74 05/12/17 18:32 Resp 18 05/12/17 18:00 BP 121/74 05/12/17 18:00 Pulse Ox 92 L 05/12/17 18:00 - Labs Result Diagrams: 05/12/17 15:15 05/12/17 15:15 Labs: Laboratory Results - last 24 hr 05/12/17 17:15 pCO2 101 H* pO2 53.0 L HCO3 50.9 H* ABG pH 7.31 L ABG Total CO2 54.0 H ABG O2 Saturation 90.6 L ABG O2 Content 13.1 L ABG Base Excess 20.4 H ABG Hemoglobin 10.7 L ABG Carboxyhemoglobin 3.1 H POC ABG HHb (Measured) 9.0 H ABG Methemoglobin 0.9 ABG O2 Capacity 14.5 L Hgb O2 Saturation 87.0 L FiO2 35.0 Assessment & Plan - Assessment and Plan (Free Text) Assessment: 71 y/o male with hx of severe COPD, CAD, DM, blindness presenting with hypercapnic respiratory acidosis 2/2 COPD exacerbation. Plan: COPD exacerbation - Aformoterol 15 mch IH Q12H - Pulmicort 0.5 Q12 - Guaifensin 100 mg PO TID - Xopenex 0.63 mg Q6 and Q2 PRN - MethyPrednisolone 40mg IVP Q12 - ROflumilast 500mcg PO Daily -Levofloxacin 500mg in 100ml IVPB - continue BPAP at night - f/u ABG tonight - pulmonary consulted (Mayito) - Procal Pulmonary edema with hx diastolic dysfunction - Hold Lasix -Bosentan 125 mg PO BID - monitor fluid status Hx of CAD - ASA DM2 -Hold Junumet DVT proph - scds -GI proph - protonix 40 daily Patient Seen and discussed w/ Dr. Fairchild - Date & Time Date: 05/12/17 Time: 21:19 <Jamie Fairchild - Last Filed: 05/14/17 14:46> Results - Vital Signs Recent Vital Signs: Last Vital Signs Temp 97.6 F 05/14/17 05:39 Pulse 75 05/14/17 10:23 Resp 20 05/14/17 05:39 BP 120/60 05/14/17 09:13 Pulse Ox 98 05/14/17 05:39 - Labs Result Diagrams: 05/14/17 06:20 05/14/17 06:20 Labs: Laboratory Results - last 24 hr 05/14/17 05/14/17 05/14/17 05:46 06:20 06:20 WBC 11.0 D RBC 4.36 Hgb 10.4 L Hct 37.1 L MCV 85.1 MCH 23.9 L MCHC 28.0 L RDW 15.7 H Plt Count 199 MPV 11.4 H pCO2 57 H pO2 86.0 HCO3 40.5 H* ABG pH 7.46 H ABG Total CO2 42.2 H ABG O2 Saturation 99.0 H ABG O2 Content 14.1 L ABG Base Excess 14.6 H ABG Hemoglobin 10.3 L ABG Carboxyhemoglobin 2.0 H POC ABG HHb (Measured) 1.0 ABG Methemoglobin 0.7 ABG O2 Capacity 14.2 L Hgb O2 Saturation 96.3 FiO2 40.0 Sodium 139 Potassium 4.6 Chloride 92 L Carbon Dioxide 40 H Anion Gap 12 BUN 20 Creatinine 0.9 Est GFR ( Amer) > 60 Est GFR (Non-Af Amer) > 60 Random Glucose 163 H Calcium 8.6 Total Bilirubin 0.3 AST 18 ALT 27 Alkaline Phosphatase 71 Total Protein 6.1 Albumin 3.1 Globulin 3.1 Albumin/Globulin Ratio 1.0 L Attending/Attestation - Attestation I have personally seen and examined this patient.: Yes I have fully participated in the care of the patient.: Yes I have reviewed all pertinent clinical information: Yes Notes (Text): I have seen and examined patient with resident. This is a 71 year old male with past medical history of legal blindness, severe COPD (on 4L of O2 at home), pulmonary hypertension, obstructive sleep apnea, psoriasis, HTN, NIDDM and CAD ( s/p stents) and being legally blind who was brought by patients neice for evaluation of somnolence and AMS and found to have acute hypercapneic respiratory acidosis secondary to COPD exacerbation. Patient was started on xopenex, solumedrol, bipap, daliresp, levaquin, pulmicort, brovana. Plan to repeat abg in 1-2 hours. Will consult pulmonary. Patient is DNI DNR. Long-term prognosis is poor. Follow up with within 3-5days and Dr Hale within 2-[address] Jamie Fairchild
[2017-05-12] MEDS: Arformoterol 15 mcg/2 ml Inh Sol IH SCH (20:54)
[2017-05-12] MEDS: Budesonide 0.5 mg/2 ml Inhal Susp UD IH SCH (20:56)
[2017-05-12] MEDS: Levalbuterol 0.63 MG/3 ML Inhal Soln UD IH SCH (20:57)
[2017-05-12 22:00] LABS: ARTERIAL BLOOD GAS HCO3 45.9 mmol/L (21-28); ARTERIAL BLOOD GAS HEMOGLOBIN 10.1 g/dL (11.7-17.4); ARTERIAL BLOOD GAS O2 CAPACITY 13.7 mL/dl (16-24); ARTERIAL BLOOD GAS O2 CONTENT 13.4 ML/dl (15-23); ARTERIAL BLOOD GAS O2 SAT 97.8 % (95-98); ARTERIAL BLOOD GAS PCO2 89 mm/Hg (35-45); ARTERIAL BLOOD GAS PH 7.32 (7.35-7.45); ARTERIAL BLOOD GAS TCO2 48.6 mmol.L (22-28)
[2017-05-12] MEDS: MethylPREDNISolone 40 mg Vial IVP SCH (22:00)
[2017-05-12 22:49] VITALS: BMI 27.6
[2017-05-13] MEDS: Levalbuterol 0.63 MG/3 ML Inhal Soln UD IH SCH ×4 (02:29→20:37)
[2017-05-13 04:33] LABS: URINE BILIRUBIN NEGATIVE (NEGATIVE); URINE BLOOD NEGATIVE (NEGATIVE); URINE GLUCOSE (UA) NEGATIVE (NEGATIVE); URINE LEUKOCYTE ESTERASE NEGATIVE Leu/uL (NEGATIVE); URINE NITRATE NEGATIVE (NEGATIVE); URINE PROTEIN TRACE mg/dL (<30 mg/dL); URINE UROBILINOGEN 0.2 E.U./dL (<1 E.U./dL)
[2017-05-13 04:35] LABS: URINE APPEARANCE CLEAR (CLEAR); URINE COLOR YELLOW (YELLOW)
[2017-05-13 04:40] LABS: URINE EPITHELIAL CELLS 0 - 2 /hpf (0-5); URINE WBC 0 - 2 /hpf (0-6)
[2017-05-13 06:38] LABS: HEMOGLOBIN 10.5 gm/dL (14.0-18.0); MEAN CELL VOLUME 88.3 fL (80.0-105.0); MEAN CORPUSCULAR HEMOGLOBIN 24.5 pg (25.0-35.0); MEAN CORPUSCULAR HGB CONC 27.8 g/dl (31.0-37.0); MEAN PLATELET VOLUME 10.9 fl (7.0-11.0); RBC 4.28 10^6/uL (3.5-6.1); RED CELL DISTRIBUTION WIDTH 15.6 % (11.5-14.5); WHITE BLOOD COUNT 8.1 10^3/ul (4.5-11.0)
[2017-05-13 07:12] LABS: BLOOD UREA NITROGEN 20 mg/dL (7-21); CALCIUM 8.4 mg/dL (8.4-10.5); GFR AFRICAN-AMERICAN > 60; GFR NON-AFRICAN AMERICAN > 60
[2017-05-13] MEDS: Arformoterol 15 mcg/2 ml Inh Sol IH SCH ×2 (07:41→20:36)
[2017-05-13] MEDS: Budesonide 0.5 mg/2 ml Inhal Susp UD IH SCH ×2 (07:41→20:38)
[2017-05-13 08:46] LABS: ARTERIAL BLOOD GAS HEMOGLOBIN 9.9 g/dL (11.7-17.4); ARTERIAL BLOOD GAS O2 CAPACITY 13.5 mL/dl (16-24); ARTERIAL BLOOD GAS O2 CONTENT 13.3 ML/dl (15-23); ARTERIAL BLOOD GAS O2 SAT 98.2 % (95-98); ARTERIAL BLOOD GAS PH 7.39 (7.35-7.45); ARTERIAL BLOOD GAS TCO2 48.3 mmol.L (22-28)
[2017-05-13] MEDS: Pantoprazole 40 mg EC Tab PO SCH (08:57)
[2017-05-13 09:02] LABS: ARTERIAL BLOOD GAS PCO2 76 mm/Hg (35-45)
[2017-05-13] MEDS: MethylPREDNISolone 40 mg Vial IVP SCH ×2 (09:26→21:28)
[2017-05-13] MEDS: guaiFENesin 100 mg/5 ml Syrup UD PO SCH ×4 (09:26→17:23)
[2017-05-13] MEDS: diltiaZEM 300 mg/24 Hours CD Cap PO SCH (09:26)
[2017-05-13] MEDS ORDERED: levoFLOXacin 500 mg in D5W 500 MG/100 ML BAG IVPB SCH (10:00)
--- NOTE | 2017-05-13 10:35 | CARD ---
APPROVED REPORT EKG Measurement Heart [id number] <Conclusion> Sinus rhythm with premature atrial complexes Incomplete right bundle branch block NSSTW changes Q in 3
[2017-05-13] MEDS ORDERED: BOSENTAN 125 MG PO SCH (13:43)
--- NOTE | 2017-05-13 14:42 | CP.PCM.PN ---
<Leighann Echols - Last Filed: 05/13/17 15:21> Subjective - Date & Time of Evaluation Date of Evaluation: 05/13/17 Time of Evaluation: 10:00 - Subjective Subjective: This is a 71 year old male who presented to the ED w/ Hypercapnic Respiratory acidosis 2/2 COPD exacerbation. Patient states that he has no complaints except for being on the BiPAP. Patient denies any SOB, chest pain, abdominal pain, Nausea, diarrhea, or vomiting. Objective - Vital Signs/Intake and Output Vital Signs (last 24 hours): Temp Pulse Resp BP Pulse Ox 99.4 F 88 19 139/70 97 05/13/17 11:56 05/13/17 14:00 05/13/17 11:56 05/13/17 11:56 05/13/17 06:00 Intake and Output: 05/13/17 05/13/17 06:59 18:59 Intake Total 0 Output Total 300 Balance -300 - Medications Medications: Current Medications Acetaminophen (Tylenol 325mg Tab) 650 mg PO Q6 PRN PRN Reason: mild pain or fever Alprazolam (Xanax) 0.25 mg PO BID PRN; Protocol PRN Reason: Anxiety Stop: 05/19/17 17:44 Arformoterol Tartrate (Brovana) 15 mcg IH [id number] [facility] Last Admin: 05/13/17 07:41 Dose: 15 mcg Aspirin (Aspirin Chewable) 81 mg PO DAILY [facility] Last Admin: 05/13/17 09:27 Dose: 81 mg Budesonide (Pulmicort Respules) 0.5 mg IH [id number] [facility] Last Admin: 05/13/17 07:41 Dose: 0.5 mg Diltiazem HCl (Cardizem Cd) 300 mg PO DAILY [facility] Last Admin: 05/13/17 09:26 Dose: 300 mg Docusate Sodium (Colace) 100 mg PO DAILY [facility] Last Admin: 05/13/17 09:37 Dose: Not Given Guaifenesin (Robitussin) 100 mg PO TID [facility] Last Admin: 05/13/17 13:09 Dose: 100 mg Levofloxacin/Dextrose (Levaquin 500mg) 500 mg in 100 mls @ 100 mls/hr IVPB DAILY [facility] Last Admin: 05/13/17 09:28 Dose: 100 mls/hr Levalbuterol HCl (Xopenex) 0.63 mg IH [id number] [facility] Last Admin: 05/13/17 13:30 Dose: 0.63 mg Levalbuterol HCl (Xopenex) 0.63 mg IH Q2 PRN PRN Reason: Shortness of Breath Methylprednisolone (Solu-Medrol) 40 mg IVP Q12 [facility] Last Admin: 05/13/17 09:26 Dose: 40 mg (Bosentan [Tracleer] (125 Mg (Home Med)) 125 mg PO BID [facility] Pantoprazole Sodium (Protonix Ec Tab) 40 mg PO ACB [facility] Last Admin: 05/13/17 08:57 Dose: 40 mg Roflumilast (Daliresp) 500 mcg PO DAILY [facility] Last Admin: 05/13/17 09:27 Dose: 500 mcg - Labs Labs: 05/13/17 05:30 05/13/17 05:30 PT 10.7 Seconds (9.9-11.8) 05/12/17 15:15 INR 0.99 (0.93-1.08) 05/12/17 15:15 APTT 28.0 Seconds (23.7-30.8) 05/12/17 15:15 - Constitutional Appears: Non-toxic, No Acute Distress - Head Exam Head Exam: ATRAUMATIC, NORMOCEPHALIC - ENT Exam ENT Exam: Mucous Membranes Moist - Neck Exam Neck Exam: absent: Lymphadenopathy - Respiratory Exam Respiratory Exam: Wheezes - Cardiovascular Exam Cardiovascular Exam: +S1, +S2. absent: Murmur - GI/Abdominal Exam GI & Abdominal Exam: Soft. absent: Tenderness - Extremities Exam Extremities Exam: Pedal Edema Additional comments: +1 Edema Assessment and Plan - Assessment and Plan (Free Text) Assessment: 71 y/o male with hx of severe COPD, CAD, DM, blindness presenting with hypercapnic respiratory acidosis 2/2 COPD exacerbation. Plan: COPD exacerbation - Aformoterol 15 mch IH Q12H - Pulmicort 0.5 Q12 - Guaifensin 100 mg PO TID - Xopenex 0.63 mg Q6 and Q2 PRN - MethyPrednisolone 40mg IVP Q12 - ROflumilast 500mcg PO Daily -Levofloxacin 500mg in 100ml IVPB - continue BPAP at night - f/u ABG t - pulm consulted; rec appreciated - Procal Pulmonary edema with hx diastolic dysfunction - Hold Lasix -Bosentan 125 mg PO BID - monitor fluid status Hx of CAD - ASA -Cardizem (diltiazem) DM2 -Hold Junumet DVT proph - scds -GI proph - protonix 40 daily Patient has been seen, reviewed and discussed with Attending Leighann Echols PGY1 <Jamie Fairchild - Last Filed: 05/14/17 14:50> Objective - Vital Signs/Intake and Output Vital Signs (last 24 hours): Temp Pulse Resp BP Pulse Ox 97.6 F 75 20 120/60 98 05/14/17 05:39 05/14/17 10:23 05/14/17 05:39 05/14/17 09:13 05/14/17 05:39 Intake and Output: 05/14/17 05/14/17 06:59 18:59 Intake Total 540 Output Total 1000 Balance -460 - Medications Medications: Current Medications Acetaminophen (Tylenol 325mg Tab) 650 mg PO Q6 PRN PRN Reason: mild pain or fever Alprazolam (Xanax) 0.25 mg PO BID PRN; Protocol PRN Reason: Anxiety Stop: 05/19/17 17:44 Arformoterol Tartrate (Brovana) 15 mcg IH [id number] [facility] Last Admin: 05/14/17 07:19 Dose: 15 mcg Aspirin (Aspirin Chewable) 81 mg PO DAILY [facility] Last Admin: 05/14/17 09:10 Dose: 81 mg Budesonide (Pulmicort Respules) 0.5 mg IH [id number] [facility] Last Admin: 05/14/17 07:19 Dose: 0.5 mg Diltiazem HCl (Cardizem Cd) 300 mg PO DAILY [facility] Last Admin: 05/14/17 09:13 Dose: 300 mg Docusate Sodium (Colace) 100 mg PO DAILY [facility] Last Admin: 05/14/17 09:14 Dose: 100 mg Guaifenesin (Robitussin) 100 mg PO TID [facility] Last Admin: 05/14/17 14:24 Dose: Not Given Insulin Human Regular (Humulin R Med) 0 units SC ACHS [facility] PRN Reason: Protocol Last Admin: 05/14/17 11:56 Dose: Not Given Levalbuterol HCl (Xopenex) 0.63 mg IH [id number] [facility] Last Admin: 05/14/17 13:07 Dose: 0.63 mg Levalbuterol HCl (Xopenex) 0.63 mg IH Q2 PRN PRN Reason: Shortness of Breath Methylprednisolone (Solu-Medrol) 30 mg IVP Q12 [facility] Last Admin: 05/14/17 09:17 Dose: 30 mg (Bosentan [Tracleer] (125 Mg (Home Med)) 125 mg PO BID [facility] Last Admin: 05/14/17 09:12 Dose: 125 mg Pantoprazole Sodium (Protonix Ec Tab) 40 mg PO ACB [facility] Last Admin: 05/14/17 07:58 Dose: 40 mg Roflumilast (Daliresp) 500 mcg PO DAILY [facility] Last Admin: 05/14/17 09:14 Dose: 500 mcg - Labs Labs: 05/14/17 06:20 05/14/17 06:20 PT 10.7 Seconds (9.9-11.8) 05/12/17 15:15 INR 0.99 (0.93-1.08) 05/12/17 15:15 APTT 28.0 Seconds (23.7-30.8) 05/12/17 15:15 Attending/Attestation - Attestation I have personally seen and examined this patient.: Yes I have fully participated in the care of the patient.: Yes I have reviewed all pertinent clinical information, including history, physical exam and plan: Yes Notes (Text): 0 I have seen and examined patient with resident. This is a 71 year old male with past medical history of legal blindness, severe COPD (on 4L of O2 at home), pulmonary hypertension, obstructive sleep apnea, psoriasis, HTN, NIDDM and CAD ( s/p stents) and being legally blind who was brought [facility] for evaluation of somnolence and AMS and found to have acute hypercapneic respiratory acidosis secondary to COPD exacerbation. Today PCO2 improved from 101 to 76. Patient is more awake and alert. Continue xopenex, solumedrol, bipap, daliresp, levaquin, pulmicort, brovana. Discussed in detail with the lion tamer. Patient is DNI DNR. Long-term prognosis is poor. Follow up with Dr.Mutterperl within 3-[address] Hale within 2-[address] Jamie Fairchild
[2017-05-13] MEDS: Insulin Reg-MEDIUM-Coverage SC SCH ×2 (17:08→21:24)
[2017-05-13] MEDS: BOSENTAN 125 MG PO SCH (17:20)
[2017-05-13 17:41] VITALS: RESP 20
[2017-05-14] MEDS: Levalbuterol 0.63 MG/3 ML Inhal Soln UD IH SCH ×3 (01:07→13:07)
[2017-05-14 05:40] VITALS: O2SAT 98
[2017-05-14 06:13] LABS: ARTERIAL BLOOD GAS HEMOGLOBIN 10.3 g/dL (11.7-17.4); ARTERIAL BLOOD GAS O2 CAPACITY 14.2 mL/dl (16-24); ARTERIAL BLOOD GAS O2 CONTENT 14.1 ML/dl (15-23); ARTERIAL BLOOD GAS PCO2 57 mm/Hg (35-45); ARTERIAL BLOOD GAS PH 7.46 (7.35-7.45); ARTERIAL BLOOD GAS TCO2 42.2 mmol.L (22-28)
[2017-05-14 06:25] LABS: ARTERIAL BLOOD GAS HCO3 40.5 mmol/L (21-28)
[2017-05-14] MEDS: Budesonide 0.5 mg/2 ml Inhal Susp UD IH SCH (07:19)
[2017-05-14] MEDS: Arformoterol 15 mcg/2 ml Inh Sol IH SCH (07:19)
[2017-05-14 07:30] LABS: HEMOGLOBIN 10.4 gm/dL (14.0-18.0); MEAN CELL VOLUME 85.1 fL (80.0-105.0); MEAN CORPUSCULAR HEMOGLOBIN 23.9 pg (25.0-35.0); MEAN PLATELET VOLUME 11.4 fl (7.0-11.0); RBC 4.36 10^6/uL (3.5-6.1); RED CELL DISTRIBUTION WIDTH 15.7 % (11.5-14.5)
[2017-05-14 07:47] LABS: ALBUMIN 3.1 g/dL (3.0-4.8); ALT/SGPT 27 U/L (7-56); AST/SGOT 18 U/L (15-59); BLOOD UREA NITROGEN 20 mg/dL (7-21); CALCIUM 8.6 mg/dL (8.4-10.5); GFR AFRICAN-AMERICAN > 60; GFR NON-AFRICAN AMERICAN > 60
[2017-05-14] MEDS: Insulin Reg-MEDIUM-Coverage SC SCH ×2 (07:50→11:56)
[2017-05-14] MEDS: Pantoprazole 40 mg EC Tab PO SCH (07:58)
[2017-05-14] MEDS: BOSENTAN 125 MG PO SCH (09:12)
[2017-05-14] MEDS: diltiaZEM 300 mg/24 Hours CD Cap PO SCH (09:13)
[2017-05-14] MEDS: guaiFENesin 100 mg/5 ml Syrup UD PO SCH ×2 (09:14→14:24)
[2017-05-14] MEDS ORDERED: MethylPREDNISolone 40 mg Vial IVP SCH (10:00)
--- NOTE | 2017-05-14 13:00 | CP.PCM.DIS ---
<Leighann Echols - Last Filed: 05/14/17 14:51> Provider - Provider Date of Admission: 05/12/17 16:32 Attending physician: Jamie Fairchild MD Primary care physician: Jose C Ambrocio MD Time Spent in preparation of Discharge (in minutes): 35 Hospital Course - Lab Results Lab Results: Most Recent Lab Values WBC 11.0 10^3/ul (4.5-11.0) D 05/14/17 06:20 RBC 4.36 10^6/uL (3.5-6.1) 05/14/17 06:20 Hgb 10.4 gm/dL (14.0-18.0) L 05/14/17 06:20 Hct 37.1 % (42.0-52.0) L 05/14/17 06:20 MCV 85.1 fL (80.0-105.0) 05/14/17 06:20 MCH 23.9 pg (25.0-35.0) L 05/14/17 06:20 MCHC 28.0 g/dl (31.0-37.0) L 05/14/17 06:20 RDW 15.7 % (11.5-14.5) H 05/14/17 06:20 Plt Count 199 10^3/uL (120.0-450.0) 05/14/17 06:20 MPV 11.4 fl (7.0-11.0) H 05/14/17 06:20 Gran % 88.2 % (50.0-68.0) H 05/12/17 15:15 Lymph % (Auto) 5.4 % (22.0-35.0) L 05/12/17 15:15 Hanson % (Auto) 5.4 % (1.0-6.0) 05/12/17 15:15 Eos % (Auto) 0.8 % (1.5-5.0) L 05/12/17 15:15 Baso % (Auto) 0.2 % (0.0-3.0) 05/12/17 15:15 Gran # 9.72 (1.4-6.5) H 05/12/17 15:15 Lymph # 0.6 (1.2-3.4) L 05/12/17 15:15 Hanson # 0.6 (0.1-0.6) 05/12/17 15:15 Eos # 0.1 (0.0-0.7) 05/12/17 15:15 Baso # 0.02 K/mm3 (0.0-2.0) 05/12/17 15:15 PT 10.7 Seconds (9.9-11.8) 05/12/17 15:15 INR 0.99 (0.93-1.08) 05/12/17 15:15 APTT 28.0 Seconds (23.7-30.8) 05/12/17 15:15 pCO2 57 mm/Hg (35-45) H 05/14/17 05:46 pO2 86.0 mm/Hg (80-100) 05/14/17 05:46 HCO3 40.5 mmol/L (21-28) H* 05/14/17 05:46 ABG pH 7.46 (7.35-7.45) H 05/14/17 05:46 ABG Total CO2 42.2 mmol.L (22-28) H 05/14/17 05:46 ABG O2 Saturation 99.0 % (95-98) H 05/14/17 05:46 ABG O2 Content 14.1 ML/dl (15-23) L 05/14/17 05:46 ABG Base Excess 14.6 mmol/L (-2.0-3.0) H 05/14/17 05:46 ABG Hemoglobin 10.3 g/dL (11.7-17.4) L 05/14/17 05:46 ABG Carboxyhemoglobin 2.0 % (0.5-1.5) H 05/14/17 05:46 POC ABG HHb (Measured) 1.0 % (0-5) 05/14/17 05:46 ABG Methemoglobin 0.7 % (0.0-3.0) 05/14/17 05:46 ABG O2 Capacity 14.2 mL/dl (16-24) L 05/14/17 05:46 Hgb O2 Saturation 96.3 % (95.0-98.0) 05/14/17 05:46 FiO2 40.0 % 05/14/17 05:46 Sodium 139 mmol/L (132-148) 05/14/17 06:20 Potassium 4.6 mmol/L (3.6-5.0) 05/14/17 06:20 Chloride 92 mmol/L (98-107) L 05/14/17 06:20 Carbon Dioxide 40 mmol/L (21-33) H 05/14/17 06:20 Anion Gap 12 (10-20) 05/14/17 06:20 BUN 20 mg/dL (7-21) 05/14/17 06:20 Creatinine 0.9 mg/dL (0.5-1.4) 05/14/17 06:20 Est GFR ( Amer) > 60 05/14/17 06:20 Est GFR (Non-Af Amer) > 60 05/14/17 06:20 POC Glucose (mg/dL) 149 mg/dL (65-110) H 05/13/17 11:47 Random Glucose 163 mg/dL (70-110) H 05/14/17 06:20 Calcium 8.6 mg/dL (8.4-10.5) 05/14/17 06:20 Phosphorus 2.8 mg/dL (2.5-4.5) 05/13/17 05:30 Magnesium 2.0 mg/dL (1.7-2.2) 05/13/17 05:30 Total Bilirubin 0.3 mg/dL (0.2-1.3) 05/14/17 06:20 AST 18 U/L (15-59) 05/14/17 06:20 ALT 27 U/L (7-56) 05/14/17 06:20 Alkaline Phosphatase 71 U/L (38-133) 05/14/17 06:20 Lactate Dehydrogenase 275 U/L (333-699) L 05/12/17 15:15 Total Creatine Kinase < 20 U/L (35-230) L 05/12/17 15:15 Troponin I < 0.01 ng/mL 05/12/17 15:15 NT-Pro-B Natriuret Pep 511 pg/mL (0-450) H 05/12/17 15:15 Total Protein 6.1 g/dL (5.8-8.3) 05/14/17 06:20 Albumin 3.1 g/dL (3.0-4.8) 05/14/17 06:20 Globulin 3.1 gm/dL 05/14/17 06:20 Albumin/Globulin Ratio 1.0 (1.1-1.8) L 05/14/17 06:20 Procalcitonin 0.34 NG/ML (0.19-0.49) 05/12/17 15:15 Urine Color Yellow (YELLOW) 05/13/17 04:00 Urine Appearance Clear (CLEAR) 05/13/17 04:00 Urine pH 6.0 (4.7-8.0) 05/13/17 04:00 Ur Specific [place] >= 1.030 (1.005-1.035) 05/13/17 04:00 Urine Protein Trace mg/dL (<30 mg/dL) H 05/13/17 04:00 Urine Glucose (UA) Negative mg/dL (NEGATIVE) 05/13/17 04:00 Urine Ketones Negative mg/dL (NEGATIVE) 05/13/17 04:00 Urine Blood Negative (NEGATIVE) 05/13/17 04:00 Urine Nitrate Negative (NEGATIVE) 05/13/17 04:00 Urine Bilirubin Negative (NEGATIVE) 05/13/17 04:00 Urine Urobilinogen 0.2 E.U./dL (<1 E.U./dL) 05/13/17 04:00 Ur Leukocyte Esterase Negative Kristina/uL (NEGATIVE) 05/13/17 04:00 Urine RBC 1 - 3 /hpf (0-2) 05/13/17 04:00 Urine WBC 0 - 2 /hpf (0-6) 05/13/17 04:00 Ur Epithelial Cells 0 - 2 /hpf (0-5) 05/13/17 04:00 - Hospital Course Hospital Course: Patient is a 71 year old male with a PMH of COPD, CAD, DM, and blindness who presented with to the ER with his Niece (Crew Leader/Control Room Operator). Crew Leader/Control Room Operator stated that he presented with symptoms of Somnolence and Lethargy x 1 day. Patient was diagnosed with Hypercapnic Respiratory Acidosis 2/2 COPD exacerbation. Patient is frequent visitor to [facility], and has been admitted on multiple occasions for the COPD exacerbations. Patient was treated for his hypercapnic respiratory acidosis ; and is now breathing on 4L O2 which is what he uses at home. A thick liquid puree diet was recommended to patient. Plan and medications were discussed with the patient and he is agreeable to it. New Meds: Prednisone 40 x3days, 30x3 days, 20 x3 days, and 10 x 3 days. Studies: Chest X-ray Bibasilar linear atelectasis. No acute infiltrate. Minimal blunting of the right costophrenic angle, may reflect small pleural effusion. Mild cardiomegaly; no significant congestive change. Discharge Exam - Head Exam Head Exam: ATRAUMATIC, NORMOCEPHALIC - Eye Exam Eye Exam: EOMI - ENT Exam ENT Exam: Mucous Membranes Moist - Neck Exam Neck exam: Normal Inspection - Respiratory Exam Respiratory Exam: absent: Rales, Rhonchi, Wheezes - Cardiovascular Exam Cardiovascular Exam: RRR, +S1, +S2 - GI/Abdominal Exam GI & Abdominal Exam: Normal Bowel Sounds, Soft. absent: Tenderness - Extremities Exam Additional comments: No pedal edema - Psychiatric Exam Psychiatric exam: Normal Affect, Normal Mood Discharge Plan - Discharge Medications Prescriptions: predniSONE [predniSONE Tab] See Taper PO DAILY #30 tab - Follow Up Plan Condition: FAIR Disposition: HOME/ ROUTINE Instructions: Heart Failure (DC), Lung Cancer (DC), Psoriasis (DC), COPD ( Chronic Obstructive Pulmonary Disease) (DC) Additional Instructions: Take medications as prescribed. Follow up with primary doctor within one week. Referrals: Jose C Ambrocio MD [Primary Care Provider] - <Jamie Fairchild - Last Filed: 05/14/17 17:39> Provider - Provider Date of Admission: 05/12/17 16:32 Attending physician: Jamie Fairchild MD Primary care physician: Jose C Ambrocio MD Hospital Course - Lab Results Lab Results: Micro Results 05/13/17 04:00 Urine,Clean Catch Urine Culture - Final 10-50,000 CFU/ML. MULTIPLE SPECIES. PROBABLE CONTAMINATION. Most Recent Lab Values WBC 11.0 10^3/ul (4.5-11.0) D 05/14/17 06:20 RBC 4.36 10^6/uL (3.5-6.1) 05/14/17 06:20 Hgb 10.4 gm/dL (14.0-18.0) L 05/14/17 06:20 Hct 37.1 % (42.0-52.0) L 05/14/17 06:20 MCV 85.1 fL (80.0-105.0) 05/14/17 06:20 MCH 23.9 pg (25.0-35.0) L 05/14/17 06:20 MCHC 28.0 g/dl (31.0-37.0) L 05/14/17 06:20 RDW 15.7 % (11.5-14.5) H 05/14/17 06:20 Plt Count 199 10^3/uL (120.0-450.0) 05/14/17 06:20 MPV 11.4 fl (7.0-11.0) H 05/14/17 06:20 Gran % 88.2 % (50.0-68.0) H 05/12/17 15:15 Lymph % (Auto) 5.4 % (22.0-35.0) L 05/12/17 15:15 Hanson % (Auto) 5.4 % (1.0-6.0) 05/12/17 15:15 Eos % (Auto) 0.8 % (1.5-5.0) L 05/12/17 15:15 Baso % (Auto) 0.2 % (0.0-3.0) 05/12/17 15:15 Gran # 9.72 (1.4-6.5) H 05/12/17 15:15 Lymph # 0.6 (1.2-3.4) L 05/12/17 15:15 Hanson # 0.6 (0.1-0.6) 05/12/17 15:15 Eos # 0.1 (0.0-0.7) 05/12/17 15:15 Baso # 0.02 K/mm3 (0.0-2.0) 05/12/17 15:15 PT 10.7 Seconds (9.9-11.8) 05/12/17 15:15 INR 0.99 (0.93-1.08) 05/12/17 15:15 APTT 28.0 Seconds (23.7-30.8) 05/12/17 15:15 pCO2 57 mm/Hg (35-45) H 05/14/17 05:46 pO2 86.0 mm/Hg (80-100) 05/14/17 05:46 HCO3 40.5 mmol/L (21-28) H* 05/14/17 05:46 ABG pH 7.46 (7.35-7.45) H 05/14/17 05:46 ABG Total CO2 42.2 mmol.L (22-28) H 05/14/17 05:46 ABG O2 Saturation 99.0 % (95-98) H 05/14/17 05:46 ABG O2 Content 14.1 ML/dl (15-23) L 05/14/17 05:46 ABG Base Excess 14.6 mmol/L (-2.0-3.0) H 05/14/17 05:46 ABG Hemoglobin 10.3 g/dL (11.7-17.4) L 05/14/17 05:46 ABG Carboxyhemoglobin 2.0 % (0.5-1.5) H 05/14/17 05:46 POC ABG HHb (Measured) 1.0 % (0-5) 05/14/17 05:46 ABG Methemoglobin 0.7 % (0.0-3.0) 05/14/17 05:46 ABG O2 Capacity 14.2 mL/dl (16-24) L 05/14/17 05:46 Hgb O2 Saturation 96.3 % (95.0-98.0) 05/14/17 05:46 FiO2 40.0 % 05/14/17 05:46 Sodium 139 mmol/L (132-148) 05/14/17 06:20 Potassium 4.6 mmol/L (3.6-5.0) 05/14/17 06:20 Chloride 92 mmol/L (98-107) L 05/14/17 06:20 Carbon Dioxide 40 mmol/L (21-33) H 05/14/17 06:20 Anion Gap 12 (10-20) 05/14/17 06:20 BUN 20 mg/dL (7-21) 05/14/17 06:20 Creatinine 0.9 mg/dL (0.5-1.4) 05/14/17 06:20 Est GFR ( Amer) > 60 05/14/17 06:20 Est GFR (Non-Af Amer) > 60 05/14/17 06:20 POC Glucose (mg/dL) 149 mg/dL (65-110) H 05/13/17 11:47 Random Glucose 163 mg/dL (70-110) H 05/14/17 06:20 Calcium 8.6 mg/dL (8.4-10.5) 05/14/17 06:20 Phosphorus 2.8 mg/dL (2.5-4.5) 05/13/17 05:30 Magnesium 2.0 mg/dL (1.7-2.2) 05/13/17 05:30 Total Bilirubin 0.3 mg/dL (0.2-1.3) 05/14/17 06:20 AST 18 U/L (15-59) 05/14/17 06:20 ALT 27 U/L (7-56) 05/14/17 06:20 Alkaline Phosphatase 71 U/L (38-133) 05/14/17 06:20 Lactate Dehydrogenase 275 U/L (333-699) L 05/12/17 15:15 Total Creatine Kinase < 20 U/L (35-230) L 05/12/17 15:15 Troponin I < 0.01 ng/mL 05/12/17 15:15 NT-Pro-B Natriuret Pep 511 pg/mL (0-450) H 05/12/17 15:15 Total Protein 6.1 g/dL (5.8-8.3) 05/14/17 06:20 Albumin 3.1 g/dL (3.0-4.8) 05/14/17 06:20 Globulin 3.1 gm/dL 05/14/17 06:20 Albumin/Globulin Ratio 1.0 (1.1-1.8) L 05/14/17 06:20 Procalcitonin 0.34 NG/ML (0.19-0.49) 05/12/17 15:15 Urine Color Yellow (YELLOW) 05/13/17 04:00 Urine Appearance Clear (CLEAR) 05/13/17 04:00 Urine pH 6.0 (4.7-8.0) 05/13/17 04:00 Ur Specific [place] >= 1.030 (1.005-1.035) 05/13/17 04:00 Urine Protein Trace mg/dL (<30 mg/dL) H 05/13/17 04:00 Urine Glucose (UA) Negative mg/dL (NEGATIVE) 05/13/17 04:00 Urine Ketones Negative mg/dL (NEGATIVE) 05/13/17 04:00 Urine Blood Negative (NEGATIVE) 05/13/17 04:00 Urine Nitrate Negative (NEGATIVE) 05/13/17 04:00 Urine Bilirubin Negative (NEGATIVE) 05/13/17 04:00 Urine Urobilinogen 0.2 E.U./dL (<1 E.U./dL) 05/13/17 04:00 Ur Leukocyte Esterase Negative Kristina/uL (NEGATIVE) 05/13/17 04:00 Urine RBC 1 - 3 /hpf (0-2) 05/13/17 04:00 Urine WBC 0 - 2 /hpf (0-6) 05/13/17 04:00 Ur Epithelial Cells 0 - 2 /hpf (0-5) 05/13/17 04:00 Attending/Attestation - Attestation I have personally seen and examined this patient.: Yes I have fully participated in the care of the patient.: Yes I have reviewed all pertinent clinical information, including history, physical exam and plan: Yes Notes (Text): I have seen and examined patient with resident. This is a 71 year old male with past medical history of legal blindness, severe COPD (on 4L of O2 at home), pulmonary hypertension, obstructive sleep apnea, psoriasis, HTN, NIDDM and CAD ( s/p stents) and being legally blind who was brought by patients niece for evaluation of somnolence and AMS and found to have acute hypercapneic respiratory acidosis secondary to COPD exacerbation. Today PCO2 improved from 101 to 57. Patient is awake, alert and oriented and denies any complaints. Patient wants to go home. Discussed with Dr Edmond in detail. Continue xopenex, bipap, daliresp, levaquin, pulmicort, brovana. Will send patient home on prednisone taper. Discussed in detail with the control and recovery combat rescue. Patient is DNI DNR. Long-term prognosis is poor. Follow up with within 3-[address] Hale within 2-[address] Jamie Fairchild
[2017-05-14 15:29] VITALS: BP 123/65; PULSE 67; TEMP 98.5
== END 2017-05-14 17:00 | disposition home or self-care (01) | DRG 191 ==
LOC: ED 14:50 → ERH 16:32 → 2RNO 18:21
PROVIDERS: ADMIT Internal Medicine; ATTEND Hospitalist
PROC: 3E0F7GC Introduction of Other Therapeutic Substance into Respiratory Tract, Via Natural or Artificial Opening (ICD-10-PCS; 2017-05-12)
PROC: 5A09357 Assistance with Respiratory Ventilation, Less than 24 Consecutive Hours, Continuous Positive Airway Pressure (ICD-10-PCS; principal; 2017-05-13)
DX: J44.1 Chronic obstructive pulmonary disease with (acute) exacerbation (principal); E87.2 Acidosis; J44.0 Chronic obstructive pulmonary disease with (acute) lower respiratory infection; J20.9 Acute bronchitis, unspecified; I27.2 Other secondary pulmonary hypertension; I11.0 Hypertensive heart disease with heart failure; I50.32 Chronic diastolic (congestive) heart failure; E11.9 Type 2 diabetes mellitus without complications; H54.8 Legal blindness, as defined in USA; K21.9 Gastro-esophageal reflux disease without esophagitis; I25.10 Atherosclerotic heart disease of native coronary artery without angina pectoris; L40.9 Psoriasis, unspecified; G47.33 Obstructive sleep apnea (adult) (pediatric); Z66 Do not resuscitate; Z79.84 Long term (current) use of oral hypoglycemic drugs; Z99.81 Dependence on supplemental oxygen; Z95.5 Presence of coronary angioplasty implant and graft; Z87.891 Personal history of nicotine dependence

== ENCOUNTER 2017-06-04 14:57 | Inpatient (IN) | payer MEDICARE ==
[2017-06-04 15:45] LABS: BASO # 0.02 K/mm3 (0.0-2.0); BASO % 0.2 % (0.0-3.0); EOS # 0.2 (0.0-0.7); EOS % 1.9 % (1.5-5.0); GRAN # 8.54 (1.4-6.5); GRAN % 72.3 % (50.0-68.0); HEMOGLOBIN 11.5 gm/dL (14.0-18.0); LYMPH # 1.9 (1.2-3.4); MEAN CELL VOLUME 89.8 fL (80.0-105.0); MEAN CORPUSCULAR HEMOGLOBIN 24.5 pg (25.0-35.0); MEAN CORPUSCULAR HGB CONC 27.3 g/dl (31.0-37.0); MEAN PLATELET VOLUME 10.6 fl (7.0-11.0); MONO # 1.1 (0.1-0.6); MONO % 9.6 % (1.0-6.0); PLATELET COUNT 179 10^3/uL (120.0-450.0); RED CELL DISTRIBUTION WIDTH 15.9 % (11.5-14.5); WHITE BLOOD COUNT 11.8 10^3/ul (4.5-11.0)
[2017-06-04 15:46] LABS: ALBUMIN 3.4 g/dL (3.0-4.8); ALT/SGPT 24 U/L (7-56); AST/SGOT 14 U/L (15-59); BLOOD UREA NITROGEN 19 mg/dL (7-21); CALCIUM 8.6 mg/dL (8.4-10.5); GFR AFRICAN-AMERICAN > 60; GFR NON-AFRICAN AMERICAN > 60; LIPASE 60 U/L (23-300)
--- NOTE | 2017-06-04 15:51 | RAD ---
HISTORY: sob COMPARISON: 05/12/2017 FINDINGS: LUNGS: Vascular congestion and patchy bilateral infiltrates similar to the previous study PLEURA: No significant pleural effusion identified, no pneumothorax apparent. CARDIOVASCULAR: Moderate cardiomegaly OSSEOUS STRUCTURES: No significant abnormalities. VISUALIZED UPPER ABDOMEN: Normal. OTHER FINDINGS: None. IMPRESSION: Vascular congestion and patchy bilateral infiltrates similar to the previous study
[2017-06-04 15:58] LABS: B-TYPE NATRIURETIC PEPTIDE 603 pg/mL (0-450)
[2017-06-04 16:02] LABS: TROPONIN I < 0.01 ng/mL
[2017-06-04 16:03] LABS: ARTERIAL BLOOD GAS HCO3 45.5 mmol/L (21-28); ARTERIAL BLOOD GAS HEMOGLOBIN 10.8 g/dL (11.7-17.4); ARTERIAL BLOOD GAS O2 CAPACITY 14.6 mL/dl (16-24); ARTERIAL BLOOD GAS O2 CONTENT 13.2 ML/dl (15-23); ARTERIAL BLOOD GAS O2 SAT 90.3 % (95-98); ARTERIAL BLOOD GAS PH 7.27 (7.35-7.45); ARTERIAL BLOOD GAS TCO2 48.5 mmol.L (22-28)
[2017-06-04 16:04] LABS: ARTERIAL BLOOD GAS PCO2 99 mm/Hg (35-45)
[2017-06-04 16:17] LABS: PARTIAL THROMBOPLASTIN TIME 27.3 Seconds (23.7-30.8); PROTHROMBIN TIME 10.8 Seconds (9.9-11.8)
[2017-06-04] MEDS ORDERED: Levalbuterol 1.25 MG/3 ML Inhal Soln UD IH STA (16:33)
[2017-06-04] MEDS ORDERED: Ipratropium 0.02% Inhal Soln (0.5 mg/2.5 ml) UD IH STA (16:33)
[2017-06-04] MEDS ORDERED: levoFLOXacin 750 mg in D5W 750 MG/150 ML BAG IVPB STA (16:35)
--- NOTE | 2017-06-04 16:46 | ED PDOC ---
Arrival/HPI - General Chief Complaint: Respiratory Distress Time Seen by Provider: 06/04/17 15:14 Historian: Patient, Family (Niece, POA ) - History of Present Illness Narrative History of Present Illness (Text): 06/04/17 15:20 Tremaine Salgado is a 71 year old male, whose past medical history includes COPD, hypertension, CHF, legally blind, diabetes, and left lung mass, presents to the emergency department for evaluation of shortness of breath since earlier today. Patient was accompanied by his niece, who is the POA, states that he had diarrhea and generalized weakness yesterday. Denies any nausea, vomiting or abdominal pain. She gave the patient some broth yesterday which he was able to tolerate. However, patient became anxious and was given 1 Xanax tablet. States he was unable to sleep much last night. Niece states that patient this morning becam confused and developed some shortness of breath. His symptoms worsened throughout the day and became cyanotic (bluish appearing). EMS gave patient 125mg solumedrol IV and 2 nebulizer treatment. Patient is DNR/DNI per POA. Currently in the emergency department, patient is lethargic, but arousable and oriented to person, place and partly to time. Denies any fever, chills, headache , dizziness, chest pain, or any other complaints at this time. The patient here is lethargic but arousable and denies any complaints. Time/Duration: Other (today morning ) Activities at Onset: Light Context: Home Past Medical History - Provider Review Nursing Documentation Reviewed: Yes - Infectious Disease Hx of Infectious Diseases: None - Tetanus Immunization Tetanus Immunization: Up to Date - Reproductive Currently : No Currently Lactating: No - Cardiac Hx Hypertension: Yes - Pulmonary Hx Chronic Obstructive Pulmonary Disease (COPD): Yes (end stage) - Neurological Hx Neurological Disorder: Yes (Blind since the age of 1.) - HEENT Hx Blind: Yes (since age 1) - Renal Hx Renal Failure: Yes - Endocrine/Metabolic Hx Diabetes Mellitus Type 2: Yes (niddm) - Hematological/Oncological Hx Blood Disorders: Yes Hx Cancer: Yes (lung mass) - Integumentary Hx Dermatological Disorder: Yes (Reddened, flush skin, dry and taut. Thickened, whitish-yellowish skin patch) Hx Psoriasis: Yes Other/Comment: Generalized body surface area, including extremities and torso with reddened, flushed skin with dry, whitish-yellow, thick, scaly, flaky patches. - Musculoskeletal/Rheumatological Hx Falls: Yes (past) - Gastrointestinal Hx Gastrointestinal Disorders: Yes (reflux) - Genitourinary/Gynecological Hx Genitourinary Disorders: Yes Hx Reproductive Disorders: No Other/Comment: urinary urgency/frequency - Psychiatric Hx Psychophysiologic Disorder: Yes Hx Anxiety: Yes Hx Depression: Yes Hx Substance Use: No - Surgical History Hx Appendectomy: Yes - Anesthesia Hx Anesthesia Reactions: No Hx Malignant Hyperthermia: No - Suicidal Assessment Feels Threatened In Home Enviroment: No Family/Social History - Physician Review Nursing Documentation Reviewed: Yes Family/Social History: No Known Family HX Smoking Status: Former Smoker Hx Alcohol Use: No Hx Substance Use: No Hx Substance Use Treatment: No Allergies/Home Meds Allergies/Adverse Reactions: Allergies No Known Allergies Allergy (Verified 06/04/17 15:31) Home Medications: Home Meds Medication Instructions Recorded Confirmed Esomeprazole Magnesium [Nexium] 40 mg PO DAILY 06/04/17 06/04/17 predniSONE [predniSONE Tab] See Taper PO DAILY 06/04/17 06/04/17 Review of Systems - Physician Review All systems were reviewed & negative as marked: Yes - Review of Systems Systems not reviewed;Unavailable: Altered Mental Status (limits ROS reliability) Constitutional: Fatigue. absent: Fevers Respiratory: SOB. absent: Cough, Sputum Cardiovascular: absent: Chest Pain, Palpitations Gastrointestinal: Diarrhea. absent: Abdominal Pain, Nausea, Vomiting Neurological: absent: Headache, Dizziness Physical Exam Vital Signs Reviewed: Yes Vital Signs Temp Pulse Resp BP Pulse Ox 06/04/17 15:45 99.2 F 116 H 22 129/70 90 L Temperature: Afebrile Blood Pressure: Normal Pulse: Tachycardic Respiratory Rate: Normal Appearance: Positive for: Ill-Appearing Pain Distress: None Mental Status: Positive for: Lethargic, other. No: Agitated, Comatose - Systems Exam Head: Present: Atraumatic, Normocephalic Pupils: Present: Other (b/l blindness ) Conjunctiva: Present: Normal Mouth: Present: Moist Mucous Membranes Pharnyx: Present: Normal. No: ERYTHEMA, EXUDATE, TONSILS ENLARGED Respiratory/Chest: Present: Decreased Breath Sounds (decreased breath sound at b /l lung bases ). No: Respiratory Distress, Accessory Muscle Use Cardiovascular: Present: Normal S1, S2, Tachycardic. No: Murmurs Abdomen: Present: Normal Bowel Sounds. No: Tenderness, Distention, Peritoneal Signs, Rebound, Guarding Upper Extremity: Present: Cyanosis. No: Edema Lower Extremity: Present: Normal Inspection. No: Edema Neurological: Present: GCS=15, CN II-XII Intact, Speech Normal, Motor Func Grossly Intact, Normal Sensory Function Skin: Present: Warm, Dry, Normal Color. No: Rashes Psychiatric: Present: Oriented x 3 Medical Decision Making ED Course and Treatment: 06/04/17 16:50 Impression: A 71 year old male who presents to the emergency department complaining of shortness of breath. Differential Diagnosis included but are not limited to: COPD vs. CO2 narcosis vs. CHF vs. pneumonia Plan: -- EKG -- Lasix -- Atrovent -- Xopenex -- Levaquin -- Blood culture -- Urinalysis -- Reassess and disposition Progress Notes: 06/04/17 17:00 Patient already given steroids and nebs. Will continue nebulizer treatment ABG shows respiratory acidosis with pCO2 of 99. Given that patient is DNR/DNI will place patient on BiPAP and place patient on telemetry. Patient is not ICU candidate due to advance directive status. 06/04/17 17:52 CXR shows no change. Aside from resp acidosis, other labs are nondiagnostic. Case discussed with Dr. Edmond who recommend 16/7 with back up rate of 18 on Bipap. Will admit to tele. Case discussed with Dr. Reyes. - Lab Interpretations Lab Results: 06/04/17 15:10 06/04/17 15:10 Lab Results 06/04/17 15:55: pCO2 99 H*, pO2 53.0 L, HCO3 45.5 H*, ABG pH 7.27 L, ABG Total CO2 48.5 H, ABG O2 Saturation 90.3 L, ABG O2 Content 13.2 L, ABG Base Excess 15.0 H, ABG Hemoglobin 10.8 L, ABG Carboxyhemoglobin 3.3 H, POC ABG HHb ( Measured) 9.3 H, ABG Methemoglobin 0.5, ABG O2 Capacity 14.6 L, Hgb O2 Saturation 86.8 L, FiO2 36.0 06/04/17 15:10: Sodium 143, Potassium 4.0, Chloride 87 L, Carbon Dioxide 45 H, Anion Gap 20, BUN 19, Creatinine 1.0, Est GFR ( Amer) > 60, Est GFR (Non- Af Amer) > 60, Random Glucose 106, Calcium 8.6, Total Bilirubin 0.6, AST 14 L, ALT 24, Alkaline Phosphatase 84, Lactate Dehydrogenase 289 L, Total Creatine Kinase 20 L, Troponin I < 0.01, NT-Pro-B Natriuret Pep 603 H, Total Protein 6.8 , Albumin 3.4, Globulin 3.4, Albumin/Globulin Ratio 1.0 L, Lipase 60 06/04/17 15:10: PT 10.8, INR 1.00, APTT 27.3 06/04/17 15:10: WBC 11.8 H, RBC 4.70, Hgb 11.5 L, Hct 42.2, MCV 89.8, MCH 24.5 L , MCHC 27.3 L, RDW 15.9 H, Plt Count 179, MPV 10.6, Gran % 72.3 H, Lymph % (Auto ) 16.0 L, [place] % (Auto) 9.6 H, Eos % (Auto) 1.9, Baso % (Auto) 0.2, Gran # 8.54 H, Lymph # 1.9, [place] # 1.1 H, Eos # 0.2, Baso # 0.02 - RAD Interpretation Radiology Orders: 06/04/17 15:21 CHEST PORTABLE [RAD] Stat - EKG Interpretation EKG Interpretation (Text): 06/04/17 17:55 aflutter vs sinus @ 115; no ST/T changes; normal axis. - Medication Orders Current Medication Orders: Acetaminophen (Tylenol 325mg Tab) 650 mg PO Q6 PRN PRN Reason: mild pain or fever Acetazolamide (Diamox 250 Mg Tab) 250 mg PO BID [place] Arformoterol Tartrate (Brovana) 15 mcg IH [id number] [place] Aspirin (Aspirin Chewable) 81 mg PO DAILY [place] Budesonide (Pulmicort Respules) 0.5 mg IH [id number] [facility] Diltiazem HCl (Cardizem Cd) 300 mg PO DAILY [place] Docusate Sodium (Colace) 100 mg PO DAILY [place] Levofloxacin/Dextrose (Levaquin 750mg) 750 mg in 150 mls @ 100 mls/hr IVPB STAT STA Stop: 06/04/17 18:04 Levofloxacin/Dextrose (Levaquin 500mg) 500 mg in 100 mls @ 100 mls/hr IVPB DAILY [facility] Insulin Human Regular (Humulin R Low) 0 units SC ACHS [place] PRN Reason: Protocol Levalbuterol HCl (Xopenex) 0.63 mg IH [id number] [place] Levalbuterol HCl (Xopenex) 0.63 mg IH Q2 PRN PRN Reason: Shortness of Breath Non-Formulary Medication (Bosentan [Tracleer]) 125 mg PO BID [place] Pantoprazole Sodium (Protonix Inj) 40 mg IVP DAILY [place] Roflumilast (Daliresp) 500 mcg PO DAILY [place] Discontinued Medications Furosemide (Lasix) 20 mg IVP STAT STA Stop: 06/04/17 16:35 Ipratropium [place] (Atrovent) 0.5 mg IH STAT STA Stop: 06/04/17 16:34 Levalbuterol HCl (Xopenex) 1.25 mg IH STAT STA Stop: 06/04/17 16:34 - Scribe Statement The provider has reviewed the documentation as recorded by the Elizabeth Lara Provider Attestation: Provider Scribe Attestation: All medical record entries made by the Scribe were at my direction and personally dictated by me. I have reviewed the chart and agree that the record accurately reflects my personal performance of the history, physical exam, medical decision making, and the department course for this patient. I have also personally directed, reviewed, and agree with the discharge instructions and disposition. Disposition/Present on Arrival - Present on Arrival Any Indicators Present on Arrival: No History of DVT/PE: No History of Uncontrolled Diabetes: No Urinary Catheter: No History of Decub. Ulcer: No History Surgical Site Infection Following: None - Disposition Have Diagnosis and Disposition been Completed?: Yes Diagnosis: COPD exacerbation, Hypercapnia Disposition: HOSPITALIZED Disposition Time: 16:35 Patient Plan: Admission, Telemetry Condition: SERIOUS
[2017-06-04] MEDS ORDERED: Levalbuterol 0.63 MG/3 ML Inhal Soln UD IH PRN (17:22)
[2017-06-04] MEDS: Arformoterol 15 mcg/2 ml Inh Sol IH SCH (19:48)
[2017-06-04] MEDS: Budesonide 0.5 mg/2 ml Inhal Susp UD IH SCH (19:48)
--- NOTE | 2017-06-04 20:43 | CARD ---
APPROVED REPORT EKG Measurement Heart [id number] <Conclusion> Sinus tachycardia with premature atrial complexes Cannot rule out Anterior infarct, age undetermined Abnormal ECG
--- NOTE | 2017-06-04 21:16 | CP.PCM.HP ---
<ALEX DONOVAN - Last Filed: 06/04/17 21:38> History of Present Illness - History of Present Illness History of Present Illness: CC: AMS, SOB HPI: Patient is a 71 yr old male with a past medical history of COPD, hypertension, CHF, legally blind, diabetes, and left lung mass who presents to the ED for SOB that began earlier today. Remaining HPI was obtained from the ED chart since patient was not responding when examined. Per ED chart the patient was accompanied by his niece, the POA, who stated that he had diarrhea and weakness since yesterday. He denied any nausea, vomiting, or abdominal pain. His niece gave him some broth yesterday which he was able to tolerate. Patient then grew anxious and was given 1 Xanax tablet. His niece stated that he was unable to sleep much last night. Niece states that this morning he became confused and developed SOB. Symptoms worsened throughout the day and became cyanotic. He was given 125 mg of solumedrol IV and 2 nebulizer treatments. Patient is currently on bipap and is arousable to sternal rub. Is not oriented to person, place, or time. ROS was unable to be obtained due to patient status. Patient is DNR/DNI per POA. PMH: COPD, Legally Blind, Pulm HTN, CHF, Diabetes, HTN, developmental delay ( per niece), HTN, GERD, CAD, Left Lung Mass, Psoriasis PSH: Hernia (10 years ago) Hospitalizations: 1 month ago for same symptoms Allergies: NKDA Social: Former Smoker (quit 10 years ago) Fam Hx: Sister-DMI Present on Admission - Present on Admission Any Indicators Present on Admission: No Review of Systems - Review of Systems Review of Systems: Please refer to HPI Past Patient History - Infectious Disease Hx of Infectious Diseases: None - Tetanus Immunizations Tetanus Immunization: Up to Date - Past Social History Smoking Status: Former Smoker - CARDIAC Hx Hypertension: Yes - PULMONARY Hx Chronic Obstructive Pulmonary Disease (COPD): Yes (end stage) - NEUROLOGICAL Hx Neurological Disorder: Yes (Blind since the age of 1.) - HEENT Hx Blind: Yes (since age 1) - RENAL Hx Renal Failure: Yes - ENDOCRINE/METABOLIC Hx Diabetes Mellitus Type 2: Yes (niddm) - HEMATOLOGICAL/ONCOLOGICAL Hx Blood Disorders: Yes Hx Cancer: Yes (lung mass) - INTEGUMENTARY Hx Dermatological Problems: Yes (Reddened, flush skin, dry and taut. Thickened, whitish-yellowish skin patch) Hx Psoriasis: Yes Other/Comment: Generalized body surface area, including extremities and torso with reddened, flushed skin with dry, whitish-yellow, thick, scaly, flaky patches. - MUSCULOSKELETAL/RHEUMATOLOGICAL Hx Falls: Yes (past) - GASTROINTESTINAL Hx Gastrointestinal Disorders: Yes (reflux) - GENITOURINARY/GYNECOLOGICAL Hx Genitourinary Disorders: Yes Hx Reproductive Disorders: No Other/Comment: urinary urgency/frequency - PSYCHIATRIC Hx Psychophysiologic Disorder: Yes Hx Anxiety: Yes Hx Depression: Yes Hx Substance Use: No - SURGICAL HISTORY Hx Appendectomy: Yes - ANESTHESIA Hx Anesthesia Reactions: No Hx Malignant Hyperthermia: No Meds Allergies/Adverse Reactions: Allergies Allergy/AdvReac Type Severity Reaction Status Date / Time No Known Allergies Allergy Verified 06/04/17 15:31 Physical Exam - Constitutional Appears: No Acute Distress - Head Exam Head Exam: NORMAL INSPECTION, NORMOCEPHALIC - Eye Exam Eye Exam: Normal appearance - ENT Exam ENT Exam: Mucous Membranes Moist, Normal Exam - Neck Exam Neck exam: Positive for: Full Rom - Respiratory Exam Respiratory Exam: Decreased Breath Sounds. absent: Accessory Muscle Use, Respiratory Distress Additional comments: Patient on BiPAP - Cardiovascular Exam Cardiovascular Exam: Tachycardia, +S1, +S2 - GI/Abdominal Exam GI & Abdominal Exam: Normal Bowel Sounds. absent: Guarding, Tenderness - Extremities Exam Extremities exam: Positive for: pedal pulses present. Negative for: calf tenderness, pedal edema, tenderness - Back Exam Back exam: rash noted - Neurological Exam Additional comments: GCS: 15 - Skin Skin Exam: Dry, Erythema, Intact, Rash, Warm Results - Vital Signs Recent Vital Signs: Last Vital Signs Temp 99.2 F 06/04/17 15:45 Pulse 94 H 06/04/17 18:00 Resp 15 06/04/17 18:00 BP 121/54 L 06/04/17 18:00 Pulse Ox 96 06/04/17 18:00 - Labs Result Diagrams: 06/04/17 15:10 06/04/17 15:10 Assessment & Plan - Assessment and Plan (Free Text) Assessment: Mr. Salgado is a 71 year old male, whose past medical history includes COPD, hypertension, CHF, legally blind, diabetes, and left lung mass, presents to the emergency department for evaluation of shortness of breath since earlier today. Plan: 1. COPD Exacerbation/Carbon Dioxide Narcosis -pulmonology consulted, all recs appreciated -CXR shows vascular congestion and patchy bilateral infiltrates similar to the previous study -ABG showed pCO2 of 99 -Brovana, Atrovent, Xopenex, Daliresp -Levaquin -BiPAP ventilation-24/05 with back up rate of 18 -transfer to telemetry; not ICU candidate d/t DNR/DNI status 2. History of diastolic dysfunction -cont home Bosentan -Diamox -monitor fluid status 3. History of CAD -cont home ASA and Cardizem 4. History of DM2 -humilin SSI 5. GI/DVT Prophylaxis -protonix/SCD's Patient seen and case discussed with attending, Dr. Reyes. - Date & Time Date: 06/04/17 Time: 17:30 Decision To Admit - Pt Status Changed To: Hospital Disposition Of: Inpatient Admission - Admit Certification Admit to Inpatient:: After my assessment, the patient will require hospitalization for at least two midnights. This is because of the severity of symptoms shown, intensity of services needed, and/or the medical risk in this patient being treated as an outpatient. - . Bed Request Type: Telemetry <Andriy Reyes - Last Filed: 06/05/17 13:35> Results - Vital Signs Recent Vital Signs: Last Vital Signs Temp 100.7 F H 06/05/17 12:00 Pulse 87 06/05/17 12:00 Resp 20 06/05/17 12:00 BP 116/62 06/05/17 12:00 Pulse Ox 96 06/04/17 18:00 - Labs Result Diagrams: 06/05/17 06:40 06/05/17 06:40 Labs: Laboratory Results - last 24 hr 06/04/17 06/05/17 06/05/17 21:26 06:40 06:40 WBC 8.7 D RBC 4.43 Hgb 10.7 L Hct 39.1 L MCV 88.3 MCH 24.2 L MCHC 27.4 L RDW 16.0 H Plt Count 173 MPV 10.6 Sodium 141 Potassium 4.0 Chloride 90 L Carbon Dioxide 42 H Anion Gap 13 BUN 18 Creatinine 1.1 Est GFR ( Amer) > 60 Est GFR (Non-Af Amer) > 60 POC Glucose (mg/dL) 187 H Random Glucose 84 Calcium 8.5 Total Bilirubin 0.3 AST 13 L ALT 21 Alkaline Phosphatase 75 Total Protein 6.5 Albumin 3.4 Globulin 3.1 Albumin/Globulin Ratio 1.1 Attending/Attestation - Attestation I have personally seen and examined this patient.: Yes I have fully participated in the care of the patient.: Yes I have reviewed all pertinent clinical information: Yes Notes (Text): 06/05/17 13:32 attending note; Patient seen and examined with resident in ER. Patient is a 71 year old male with a past medical history of COPD, hypertension , CHF, legally blind, diabetes, who presents to the ED for SOB that began earlier today. Patient was in hypercapnic respiratory failure. Currently on BiPAP. Patient also uses BiPAP at home. pulmonary evaluation with Dr. oliveira requested. COPD; continue DuoNeb treatment. Metabolic alkalosis; compensatory due to chronic respiratory acidosis. continue Diamox. A lasix on hold. DNI DNR. Upon discharge the patient will follow-up PMD . 06/05/17 13:33
[2017-06-04] MEDS: BOSENTAN 125 MG PO SCH (22:36)
[2017-06-04] MEDS: diltiaZEM 300 mg/24 Hours CD Cap PO SCH (22:37)
[2017-06-04] MEDS: Insulin Reg-LOW-Coverage SC SCH (22:40)
[2017-06-04 23:43] VITALS: BMI 30.4
[2017-06-04] MEDS ORDERED: Pneumococcal 23-Valent Vaccine IM ONE (23:43)
[2017-06-05] MEDS: Levalbuterol 0.63 MG/3 ML Inhal Soln UD IH SCH ×4 (02:07→20:05)
[2017-06-05] MEDS ORDERED: Pantoprazole 40 mg EC Tab PO SCH (06:00)
[2017-06-05] MEDS: Budesonide 0.5 mg/2 ml Inhal Susp UD IH SCH ×2 (07:32→20:05)
[2017-06-05] MEDS: Arformoterol 15 mcg/2 ml Inh Sol IH SCH ×2 (07:32→20:05)
[2017-06-05 07:43] LABS: HEMOGLOBIN 10.7 gm/dL (14.0-18.0); MEAN CELL VOLUME 88.3 fL (80.0-105.0); MEAN CORPUSCULAR HEMOGLOBIN 24.2 pg (25.0-35.0); MEAN CORPUSCULAR HGB CONC 27.4 g/dl (31.0-37.0); MEAN PLATELET VOLUME 10.6 fl (7.0-11.0); RBC 4.43 10^6/uL (3.5-6.1); WHITE BLOOD COUNT 8.7 10^3/ul (4.5-11.0)
[2017-06-05] MEDS ORDERED: A C T ELECTRONICS XX ONE ×2 (07:54→12:35)
[2017-06-05 08:03] LABS: ALB/GLOB RATIO 1.1 (1.1-1.8); ALBUMIN 3.4 g/dL (3.0-4.8); ALT/SGPT 21 U/L (7-56); AST/SGOT 13 U/L (15-59); BLOOD UREA NITROGEN 18 mg/dL (7-21); CALCIUM 8.5 mg/dL (8.4-10.5); GFR AFRICAN-AMERICAN > 60; GFR NON-AFRICAN AMERICAN > 60
[2017-06-05] MEDS: Insulin Reg-LOW-Coverage SC SCH ×4 (08:20→22:14)
[2017-06-05] MEDS: diltiaZEM 300 mg/24 Hours CD Cap PO SCH (09:15)
[2017-06-05] MEDS: MethylPREDNISolone 40 mg Vial IVP SCH ×2 (09:16→22:13)
[2017-06-05] MEDS: Pantoprazole 40 mg EC Tab PO SCH (09:16)
[2017-06-05] MEDS: BOSENTAN 125 MG PO SCH ×2 (09:28→22:41)
--- NOTE | 2017-06-05 09:54 | CP.PCM.PN ---
<Esther Sher - Last Filed: 06/05/17 09:46> Subjective - Date & Time of Evaluation Date of Evaluation: 06/05/17 Time of Evaluation: 09:46 - Subjective Subjective: Medicine Progress Note Patient seen and examined at bedside. There were no acute overnight events. He remained on Bipap overnight. He is awake and alert today and says his breathing has improved. He denies CP, SOB, n/v/d, numbness/tingling, fever or chills. He reports that he does not wear his Bipap at home despite his niece trying to place him on it. Dr. Oliveira spoke with him at length telling him the importance of the Bipap when he is at home. Objective - Vital Signs/Intake and Output Vital Signs (last 24 hours): Temp Pulse Resp BP Pulse Ox 97.9 F 79 18 104/67 96 06/05/17 06:00 06/05/17 09:15 06/05/17 06:00 06/05/17 09:15 06/04/17 18:00 Intake and Output: 06/05/17 06/05/17 06:59 18:59 Intake Total 140 Output Total 800 Balance -660 - Medications Medications: Current Medications Acetaminophen (Tylenol 325mg Tab) 650 mg PO Q6 PRN PRN Reason: mild pain or fever Acetazolamide (Diamox 250 Mg Tab) 250 mg PO BID [facility] Last Admin: 06/05/17 09:16 Dose: 250 mg Arformoterol Tartrate (Brovana) 15 mcg IH [id number] [facility] Last Admin: 06/05/17 07:32 Dose: 15 mcg Aspirin (Aspirin Chewable) 81 mg PO DAILY [facility] Last Admin: 06/05/17 09:15 Dose: 81 mg Budesonide (Pulmicort Respules) 0.5 mg IH [id number] [facility] Last Admin: 06/05/17 07:32 Dose: 0.5 mg Diltiazem HCl (Cardizem Cd) 300 mg PO DAILY [facility] Last Admin: 06/05/17 09:15 Dose: 300 mg Docusate Sodium (Colace) 100 mg PO DAILY [facility] Last Admin: 06/05/17 09:15 Dose: 100 mg Levofloxacin/Dextrose (Levaquin 500mg) 500 mg in 100 mls @ 100 mls/hr IVPB DAILY [facility] Last Admin: 06/05/17 09:16 Dose: 100 mls/hr Insulin Human Regular (Humulin R Low) 0 units SC ACHS [place] PRN Reason: Protocol Last Admin: 06/05/17 08:20 Dose: Not Given Levalbuterol HCl (Xopenex) 0.63 mg IH [id number] [facility] Last Admin: 06/05/17 07:32 Dose: 0.63 mg Levalbuterol HCl (Xopenex) 0.63 mg IH Q2 PRN PRN Reason: Shortness of Breath Methylprednisolone (Solu-Medrol) 30 mg IVP Q12 [facility] Last Admin: 06/05/17 09:16 Dose: 30 mg Non-Formulary Medication (Bosentan [Tracleer]) 125 mg PO BID [facility] Last Admin: 06/05/17 09:28 Dose: Not Given Pantoprazole Sodium (Protonix Ec Tab) 40 mg PO 1000 [facility] Last Admin: 06/05/17 09:16 Dose: 40 mg Roflumilast (Daliresp) 500 mcg PO DAILY [facility] Last Admin: 06/05/17 09:16 Dose: 500 mcg - Labs Labs: 06/05/17 06:40 06/05/17 06:40 PT 10.8 Seconds (9.9-11.8) 06/04/17 15:10 INR 1.00 (0.93-1.08) 06/04/17 15:10 APTT 27.3 Seconds (23.7-30.8) 06/04/17 15:10 - Constitutional Appears: No Acute Distress - Head Exam Head Exam: ATRAUMATIC, NORMAL INSPECTION, NORMOCEPHALIC - Eye Exam Eye Exam: Normal appearance Additional comments: blind - Neck Exam Neck Exam: Normal Inspection - Respiratory Exam Respiratory Exam: Clear to Ausculation Bilateral, NORMAL BREATHING PATTERN. absent: Rales, Rhonchi, Wheezes - Cardiovascular Exam Cardiovascular Exam: REGULAR RHYTHM, +S1, +S2. absent: Gallop, Rubs, Murmur - GI/Abdominal Exam GI & Abdominal Exam: Soft, Normal Bowel Sounds. absent: Rigid, Tenderness, Mass , Rebound - Extremities Exam Extremities Exam: Normal Inspection. absent: Calf Tenderness, Pedal Edema - Neurological Exam Neurological Exam: Alert, Awake, CN II-XII Intact, Oriented x3 - Psychiatric Exam Psychiatric exam: Normal Affect, Normal Mood - Skin Skin Exam: Dry, Warm Additional comments: multiple dry skin lesions on legs and arms Assessment and Plan - Assessment and Plan (Free Text) Assessment: This is a 71Y M with PMH of COPD, hypertension, CHF, legally blind, DM, and left lung mass admitted for hypercapneic respiratory failure secondary to not using BiPap at home. Plan: 1. Hypercapneic respiratory failure secondary to severe COPD and Bipap noncompliance - Pulm consulted- recs appreciated - Solumedrol 30q12- will taper in am - Repeat Abg pending - Bipap at night - Continue Brovana, Atrovent, Xopenex and Dailresp - DC levaquin due to no leukocytosis, afebrile, no pneumonia seen on CXR - Counseled patient the importance of wearing Bipap at home 2. Hx of diastolic CHF - Continue Bosentan - Monitor I&O 3. HTN - Continue ASA and Cardizem 4. DM - ISS - blood glucose monitoring GI ppx: Protonix DVT ppx: SCDs Dispo: Patient more alert. Will taper steroids tomorrow and most likely dc home in AM. Pt can follow up with Dr. Oliveira after D/C case seen, discussed and reviewed with attending. Sarah Sher PGY2 <Andriy Reyes - Last Filed: 06/05/17 13:40> Objective - Vital Signs/Intake and Output Vital Signs (last 24 hours): Temp Pulse Resp BP Pulse Ox 100.7 F H 87 20 116/62 96 06/05/17 12:00 06/05/17 12:00 06/05/17 12:00 06/05/17 12:00 06/04/17 18:00 Intake and Output: 06/05/17 06/05/17 06:59 18:59 Intake Total 140 Output Total 800 Balance -660 - Medications Medications: Current Medications Acetaminophen (Tylenol 325mg Tab) 650 mg PO Q6 PRN PRN Reason: mild pain or fever Last Admin: 06/05/17 11:34 Dose: 650 mg Arformoterol Tartrate (Brovana) 15 mcg IH [id number] [facility] Last Admin: 06/05/17 07:32 Dose: 15 mcg Aspirin (Aspirin Chewable) 81 mg PO DAILY [facility] Last Admin: 06/05/17 09:15 Dose: 81 mg Budesonide (Pulmicort Respules) 0.5 mg IH [id number] [facility] Last Admin: 06/05/17 07:32 Dose: 0.5 mg Diltiazem HCl (Cardizem Cd) 300 mg PO DAILY [facility] Last Admin: 06/05/17 09:15 Dose: 300 mg Docusate Sodium (Colace) 100 mg PO DAILY [facility] Last Admin: 06/05/17 09:15 Dose: 100 mg Insulin Human Regular (Humulin R Low) 0 units SC ACHS [facility] PRN Reason: Protocol Last Admin: 06/05/17 12:21 Dose: Not Given Levalbuterol HCl (Xopenex) 0.63 mg IH [id number] [facility] Last Admin: 06/05/17 13:28 Dose: 0.63 mg Levalbuterol HCl (Xopenex) 0.63 mg IH Q2 PRN PRN Reason: Shortness of Breath Methylprednisolone (Solu-Medrol) 30 mg IVP Q12 [facility] Last Admin: 06/05/17 09:16 Dose: 30 mg Non-Formulary Medication (Bosentan [Tracleer]) 125 mg PO BID [facility] Last Admin: 06/05/17 09:28 Dose: Not Given Pantoprazole Sodium (Protonix Ec Tab) 40 mg PO 1000 [facility] Last Admin: 06/05/17 09:16 Dose: 40 mg Roflumilast (Daliresp) 500 mcg PO DAILY [facility] Last Admin: 06/05/17 09:16 Dose: 500 mcg - Labs Labs: 06/05/17 06:40 06/05/17 06:40 PT 10.8 Seconds (9.9-11.8) 06/04/17 15:10 INR 1.00 (0.93-1.08) 06/04/17 15:10 APTT 27.3 Seconds (23.7-30.8) 06/04/17 15:10 Attending/Attestation - Attestation I have personally seen and examined this patient.: Yes I have fully participated in the care of the patient.: Yes I have reviewed all pertinent clinical information, including history, physical exam and plan: Yes Notes (Text): 06/05/17 13:36 attending note; Patient seen and examined with resident. Patient is a 71 year old male with a past medical history of COPD, hypertension , CHF, legally blind, diabetes is admitted with hypercapnic respiratory failure. Currently on BiPAP at night. Oxygen during daytime. pulmonary evaluation with Dr. oliveira appreciated. Mental status is improving. COPD; continue DuoNeb treatment/Steroids. Metabolic alkalosis; compensatory due to chronic respiratory acidosis. Improving.continue Diamox. lasix on hold. PT evaluation requested. Case discussed with patient case manager in detail. DNI DNR. possible discharge home tomorrow if clinically stable. Upon discharge the patient will follow-up PMD .
[2017-06-05] MEDS ORDERED: levoFLOXacin 500 mg in D5W 500 MG/100 ML BAG IVPB SCH (10:00)
--- NOTE | 2017-06-05 17:44 | CON ---
DATE: 06/05/2017 REASON FOR CONSULTATION: Respiratory failure. REFERRING PHYSICIAN: Dr. Reyes. HISTORY OF PRESENT ILLNESS: History is obtained via extensive discussion with the night nurse. I have also reviewed the chart at length. I have also discussed the case with the patient at length. The patient is a chronically ill 71-year-old male, with past medical history significant for end-stage chronic obstructive pulmonary disease, multiple episodes of respiratory failure, recurrent bronchitis, pulmonary hypertension, left upper lobe lung mass (the patient and family refused workup in the past), coronary artery disease, who presents to [facility] with a one-day history of worsening shortness of breath and confusion. Apparently, starting from yesterday morning, the patient began to develop increasing shortness of breath. The niece - who takes care of the patient - also noted the patient to be cyanotic. She then brought the patient to the emergency room for additional evaluation and treatment. As above,the patient did become short of breath - starting yesterday morning. He does have a chronic cough with minimal sputum production - which is not changed. There is no history of chest pain, coughing up of blood, or chest pain - made worse with deep respirations. The patient did present to the emergency room with low grade fevers. No history of chills or infectious exposure. No history of night sweats, weight loss or appetite change prior to the above events. No history of leg or calf pains. No history of syncope or diaphoresis. No history of recent travel or trauma. REVIEW OF SYSTEMS: In the emergency room chart - stating that the patient had diarrhea over the past day. No nausea or vomiting. No acute urinary symptoms. No new musculoskeletal complaints. Rest of the review of systems is negative. ALLERGIES: No known allergies. SOCIAL HISTORY: Positive for extensive tobacco usage. No alcohol. FAMILY HISTORY: No inheritable diseases. HOME MEDICATIONS: Include Tylenol, Pulmicort, Tracleer, aspirin, Brovana, Xanax, Robitussin, Daliresp, Colace, Nexium, Xopenex, prednisone, and Lasix. PHYSICAL EXAMINATION SUBJECTIVE: The patient is now awake and alert. He is not of short of breath at rest. He is conversive. VITAL SIGNS: Temperature is 97.9, pulse is 67, respirations 18, blood pressure 120/70. Oxygen saturation on BiPAP is 96%. HEENT: Normocephalic and atraumatic. NECK: No JVD. CARDIOPULMONARY: Systolic ejection murmur at the low left sternal border. No S3 gallop. LUNGS: Decreased breath sounds at the bases. Minimal bilateral rhonchi. No wheezing. GASTROINTESTINAL: Abdomen is soft, nontender, nondistended. Bowel sounds are positive. EXTREMITIES: Mild edema. No cyanosis. No clubbing. Calves are nontender to palpation. SKIN: No acute rash. NEUROLOGIC: Exam limited at the present time. CURRENT LABORATORY DATA: Chest x-ray was done yesterday and reviewed. The chest x-ray is not significantly changed from the previous films. CBC: White count 11.8, hemoglobin 11.5, hematocrit 42.2, platelets of 179. Arterial blood glass was done on nasal cannula. Results are: PH 7.27, pCO2 of 99, pO2 of 53. Complete metabolic profile: Chloride 87, carbon dioxide 45, glucose 187, AST 14, LDH 289, B-type natriuretic peptide 603. Rest of the metabolic profile is within normal limits. IMPRESSION: 1. Recurrent respiratory failure. 2. End-stage chronic obstructive pulmonary disease. 3. Recurrent bronchitis. 4. Pulmonary hypertension. 5. Left upper lobe lung mass - the patient and family refused workup in the past. 6. Coronary artery disease. PLAN: The patient presents to [facility] with a one-day history of worsening shortness of breath and confusion. He also has a chronic cough - which has not changed. I did review the chest x-ray as above. The chest x-ray does not seem significantly changed from the previous films. I have also reviewed the arterial blood gas. An acute respiratory acidosis is noted. I did discuss the case with night nurse at length. During his stay in the emergency room, the patient was placed on BiPAP. He is no longer lethargic. He is awake, alert, conversive. Hopefully, we can transition the patient to nasal cannula during the day and BiPAP at night. The patient is extremely noncompliant with his BiPAP at home. I did discuss this issue with him at length. Hopefully, the patient will be compliant with his BiPAP at home, and the hospital admissions will be less frequent. On physical exam, the patient is in mild bronchospasm. I will continue with the current nebulizer treatments and add low-dose intravenous steroids for now. The patient will also be continued on his Tracleer - for his pulmonary hypertension. The patient's clinical status is certainly improved - compared to yesterday. However, the overall status/prognosis of this patient remains very poor. All are aware. I will discuss the above with the attending physician this morning. Thank you very much for this pulmonary consultation. Fabricio Edmond MD MTDD
[2017-06-05] MEDS ORDERED: BOSENTAN 125 MG PO SCH (20:00)
[2017-06-06] MEDS: Levalbuterol 0.63 MG/3 ML Inhal Soln UD IH SCH ×3 (01:40→13:22)
[2017-06-06 05:25] LABS: ARTERIAL BLOOD GAS HCO3 32.8 mmol/L (21-28); ARTERIAL BLOOD GAS HEMOGLOBIN 11.5 g/dL (11.7-17.4); ARTERIAL BLOOD GAS O2 CAPACITY 15.7 mL/dl (16-24); ARTERIAL BLOOD GAS O2 CONTENT 15.5 ML/dl (15-23); ARTERIAL BLOOD GAS O2 SAT 98.5 % (95-98); ARTERIAL BLOOD GAS PCO2 58 mm/Hg (35-45); ARTERIAL BLOOD GAS PH 7.36 (7.35-7.45); ARTERIAL BLOOD GAS TCO2 34.6 mmol.L (22-28)
[2017-06-06 06:46] VITALS: RESP 19; O2SAT 95
[2017-06-06] MEDS: Arformoterol 15 mcg/2 ml Inh Sol IH SCH (07:32)
[2017-06-06] MEDS: Budesonide 0.5 mg/2 ml Inhal Susp UD IH SCH (07:33)
[2017-06-06 07:43] LABS: HEMOGLOBIN 11.4 gm/dL (14.0-18.0); MEAN CELL VOLUME 83.6 fL (80.0-105.0); MEAN CORPUSCULAR HEMOGLOBIN 24.3 pg (25.0-35.0); MEAN CORPUSCULAR HGB CONC 29.1 g/dl (31.0-37.0); RBC 4.69 10^6/uL (3.5-6.1); RED CELL DISTRIBUTION WIDTH 16.1 % (11.5-14.5); WHITE BLOOD COUNT 9.6 10^3/ul (4.5-11.0)
[2017-06-06 08:07] LABS: ALBUMIN 3.6 g/dL (3.0-4.8); ALT/SGPT 20 U/L (7-56); AST/SGOT 14 U/L (15-59); BLOOD UREA NITROGEN 22 mg/dL (7-21); CALCIUM 9.2 mg/dL (8.4-10.5); GFR AFRICAN-AMERICAN > 60; GFR NON-AFRICAN AMERICAN > 60
[2017-06-06] MEDS: Insulin Reg-LOW-Coverage SC SCH ×2 (10:20→13:36)
[2017-06-06] MEDS: Pantoprazole 40 mg EC Tab PO SCH (10:34)
[2017-06-06] MEDS: MethylPREDNISolone 40 mg Vial IVP SCH (10:35)
[2017-06-06] MEDS: diltiaZEM 300 mg/24 Hours CD Cap PO SCH (10:35)
[2017-06-06] MEDS: BOSENTAN 125 MG PO SCH (10:42)
[2017-06-06 12:48] VITALS: BP 118/68; PULSE 95; TEMP 97.3
--- NOTE | 2017-06-06 15:49 | CP.PCM.DIS ---
<Omer Carter - Last Filed: 06/06/17 15:37> Provider - Provider Date of Admission: 06/04/17 16:38 Attending physician: Andriy Reyes MD Primary care physician: NO PRIMARY CARE PROVIDER Consults: Pulmonology - Dr. Edmond Time Spent in preparation of Discharge (in minutes): 45 Diagnosis - Discharge Diagnosis (1) COPD exacerbation Status: Acute Priority: Medium (2) CHF (congestive heart failure) Status: Chronic Priority: Medium (3) Hypercapnic respiratory failure Status: Acute Priority: Medium (4) Lung mass Status: Chronic Priority: Medium (5) Weakness generalized Status: Acute Priority: Low Hospital Course - Lab Results Lab Results: Micro Results 06/05/17 06:40 Blood-Venous Blood Culture - Preliminary NO GROWTH AFTER 24 HOURS 06/04/17 18:13 Blood-Venous Blood Culture - Preliminary NO GROWTH AFTER 24 HOURS Most Recent Lab Values WBC 9.6 10^3/ul (4.5-11.0) 06/06/17 07:35 RBC 4.69 10^6/uL (3.5-6.1) 06/06/17 07:35 Hgb 11.4 gm/dL (14.0-18.0) L 06/06/17 07:35 Hct 39.2 % (42.0-52.0) L 06/06/17 07:35 MCV 83.6 fL (80.0-105.0) 06/06/17 07:35 MCH 24.3 pg (25.0-35.0) L 06/06/17 07:35 MCHC 29.1 g/dl (31.0-37.0) L 06/06/17 07:35 RDW 16.1 % (11.5-14.5) H 06/06/17 07:35 Plt Count 218 10^3/uL (120.0-450.0) 06/06/17 07:35 MPV 10.0 fl (7.0-11.0) 06/06/17 07:35 Gran % 72.3 % (50.0-68.0) H 06/04/17 15:10 Lymph % (Auto) 16.0 % (22.0-35.0) L 06/04/17 15:10 [place] % (Auto) 9.6 % (1.0-6.0) H 06/04/17 15:10 Eos % (Auto) 1.9 % (1.5-5.0) 06/04/17 15:10 Baso % (Auto) 0.2 % (0.0-3.0) 06/04/17 15:10 Gran # 8.54 (1.4-6.5) H 06/04/17 15:10 Lymph # 1.9 (1.2-3.4) 06/04/17 15:10 [place] # 1.1 (0.1-0.6) H 06/04/17 15:10 Eos # 0.2 (0.0-0.7) 06/04/17 15:10 Baso # 0.02 K/mm3 (0.0-2.0) 06/04/17 15:10 PT 10.8 Seconds (9.9-11.8) 06/04/17 15:10 INR 1.00 (0.93-1.08) 06/04/17 15:10 APTT 27.3 Seconds (23.7-30.8) 06/04/17 15:10 pCO2 58 mm/Hg (35-45) H 06/06/17 05:15 pO2 85.0 mm/Hg (80-100) 06/06/17 05:15 HCO3 32.8 mmol/L (21-28) H 06/06/17 05:15 ABG pH 7.36 (7.35-7.45) 06/06/17 05:15 ABG Total CO2 34.6 mmol.L (22-28) H 06/06/17 05:15 ABG O2 Saturation 98.5 % (95-98) H 06/06/17 05:15 ABG O2 Content 15.5 ML/dl (15-23) 06/06/17 05:15 ABG Base Excess 5.9 mmol/L (-2.0-3.0) H 06/06/17 05:15 ABG Hemoglobin 11.5 g/dL (11.7-17.4) L 06/06/17 05:15 ABG Carboxyhemoglobin 2.0 % (0.5-1.5) H 06/06/17 05:15 POC ABG HHb (Measured) 1.5 % (0-5) 06/06/17 05:15 ABG Methemoglobin 1.1 % (0.0-3.0) 06/06/17 05:15 ABG O2 Capacity 15.7 mL/dl (16-24) L 06/06/17 05:15 Hgb O2 Saturation 95.4 % (95.0-98.0) 06/06/17 05:15 FiO2 50.0 % 06/06/17 05:15 Sodium 137 mmol/L (132-148) 06/06/17 07:35 Potassium 4.1 mmol/L (3.6-5.0) 06/06/17 07:35 Chloride 93 mmol/L (98-107) L 06/06/17 07:35 Carbon Dioxide 34 mmol/L (21-33) H 06/06/17 07:35 Anion Gap 14 (10-20) 06/06/17 07:35 BUN 22 mg/dL (7-21) H 06/06/17 07:35 Creatinine 1.0 mg/dL (0.5-1.4) 06/06/17 07:35 Est GFR ( Amer) > 60 06/06/17 07:35 Est GFR (Non-Af Amer) > 60 06/06/17 07:35 POC Glucose (mg/dL) 187 mg/dL (65-110) H 06/04/17 21:26 Random Glucose 149 mg/dL (70-110) H 06/06/17 07:35 Calcium 9.2 mg/dL (8.4-10.5) 06/06/17 07:35 Total Bilirubin 0.4 mg/dL (0.2-1.3) 06/06/17 07:35 AST 14 U/L (15-59) L 06/06/17 07:35 ALT 20 U/L (7-56) 06/06/17 07:35 Alkaline Phosphatase 81 U/L (38-133) 06/06/17 07:35 Lactate Dehydrogenase 289 U/L (333-699) L 06/04/17 15:10 Total Creatine Kinase 20 U/L (35-230) L 06/04/17 15:10 Troponin I < 0.01 ng/mL 06/04/17 15:10 NT-Pro-B Natriuret Pep 603 pg/mL (0-450) H 06/04/17 15:10 Total Protein 7.3 g/dL (5.8-8.3) 06/06/17 07:35 Albumin 3.6 g/dL (3.0-4.8) 06/06/17 07:35 Globulin 3.7 gm/dL 06/06/17 07:35 Albumin/Globulin Ratio 1.0 (1.1-1.8) L 06/06/17 07:35 Lipase 60 U/L (23-300) 06/04/17 15:10 - Hospital Course Hospital Course: 71 y/o male with a past medical history of COPD, hypertension, CHF, legally blind, diabetes, and left lung mass presented to the ED for SOB was found to be in COPD exacerbation. After further questioning, pt admitted to being noncompliant with his CPAP and medications at home. Pt was placed on Solumedrol therapy and given a dose of levaquin for possible infection. Pt was also placed on his home inhaler medication. Pt had solumedrol tapered and placed on CPAP. Pt improved and was sent home with medrol dose pack. Pt was counseled on the importance of being compliant with home CPAP and medications. Patient will follow up with PMD in 1 week. Discharge Exam - Head Exam Head Exam: ATRAUMATIC, NORMAL INSPECTION, NORMOCEPHALIC - ENT Exam ENT Exam: Mucous Membranes Moist - Respiratory Exam Respiratory Exam: NORMAL BREATHING PATTERN, UNREMARKABLE. absent: Wheezes - Cardiovascular Exam Cardiovascular Exam: RRR, +S1, +S2 - GI/Abdominal Exam GI & Abdominal Exam: Normal Bowel Sounds, Soft. absent: Tenderness - Extremities Exam Extremities exam: normal inspection - Neurological Exam Neurological exam: Alert, CN II-XII Intact, Oriented x3 - Psychiatric Exam Psychiatric exam: Normal Affect, Normal Mood - Skin Skin Exam: Normal Color, Warm Discharge Plan - Discharge Medications Prescriptions: Methylprednisolone [Medrol Dose Pack (21 tabs)] See Taper PO ONCE #21 mg - Follow Up Plan Condition: SERIOUS Disposition: HOME/ ROUTINE Instructions: COPD (Chronic Obstructive Pulmonary Disease) (DC), Acute Diarrhea (GEN), Weakness (GEN), Altered Mental Status (GEN) Additional Instructions: Please take home medications as prescribed Please use BIPAP at home A prescription for a medrol dose pack has been sent to your pharmacy If symptoms worsen, please return to hospital Follow up with your PMD within 1 week Nursing If you begin to experience shortness of breath, chest pain, symptoms return, or any changes, return to the [facility] emergency room or call 911. See care notes provided for further instructions. Referrals: PCP,NO [Primary Care Provider] - <Ovi Peguero - Last Filed: 06/06/17 21:20> Provider - Provider Date of Admission: 06/04/17 16:38 Attending physician: Andriy Reyes MD Primary care physician: RAHUL PRIMARY CARE PROVIDER Hospital Course - Lab Results Lab Results: Micro Results 06/04/17 18:13 Blood-Venous Blood Culture - Preliminary NO GROWTH AFTER 48 HOURS 06/05/17 06:40 Blood-Venous Blood Culture - Preliminary NO GROWTH AFTER 24 HOURS Most Recent Lab Values WBC 9.6 10^3/ul (4.5-11.0) 06/06/17 07:35 RBC 4.69 10^6/uL (3.5-6.1) 06/06/17 07:35 Hgb 11.4 gm/dL (14.0-18.0) L 06/06/17 07:35 Hct 39.2 % (42.0-52.0) L 06/06/17 07:35 MCV 83.6 fL (80.0-105.0) 06/06/17 07:35 MCH 24.3 pg (25.0-35.0) L 06/06/17 07:35 MCHC 29.1 g/dl (31.0-37.0) L 06/06/17 07:35 RDW 16.1 % (11.5-14.5) H 06/06/17 07:35 Plt Count 218 10^3/uL (120.0-450.0) 06/06/17 07:35 MPV 10.0 fl (7.0-11.0) 06/06/17 07:35 Gran % 72.3 % (50.0-68.0) H 06/04/17 15:10 Lymph % (Auto) 16.0 % (22.0-35.0) L 06/04/17 15:10 [place] % (Auto) 9.6 % (1.0-6.0) H 06/04/17 15:10 Eos % (Auto) 1.9 % (1.5-5.0) 06/04/17 15:10 Baso % (Auto) 0.2 % (0.0-3.0) 06/04/17 15:10 Gran # 8.54 (1.4-6.5) H 06/04/17 15:10 Lymph # 1.9 (1.2-3.4) 06/04/17 15:10 [place] # 1.1 (0.1-0.6) H 06/04/17 15:10 Eos # 0.2 (0.0-0.7) 06/04/17 15:10 Baso # 0.02 K/mm3 (0.0-2.0) 06/04/17 15:10 PT 10.8 Seconds (9.9-11.8) 06/04/17 15:10 INR 1.00 (0.93-1.08) 06/04/17 15:10 APTT 27.3 Seconds (23.7-30.8) 06/04/17 15:10 pCO2 58 mm/Hg (35-45) H 06/06/17 05:15 pO2 85.0 mm/Hg (80-100) 06/06/17 05:15 HCO3 32.8 mmol/L (21-28) H 06/06/17 05:15 ABG pH 7.36 (7.35-7.45) 06/06/17 05:15 ABG Total CO2 34.6 mmol.L (22-28) H 06/06/17 05:15 ABG O2 Saturation 98.5 % (95-98) H 06/06/17 05:15 ABG O2 Content 15.5 ML/dl (15-23) 06/06/17 05:15 ABG Base Excess 5.9 mmol/L (-2.0-3.0) H 06/06/17 05:15 ABG Hemoglobin 11.5 g/dL (11.7-17.4) L 06/06/17 05:15 ABG Carboxyhemoglobin 2.0 % (0.5-1.5) H 06/06/17 05:15 POC ABG HHb (Measured) 1.5 % (0-5) 06/06/17 05:15 ABG Methemoglobin 1.1 % (0.0-3.0) 06/06/17 05:15 ABG O2 Capacity 15.7 mL/dl (16-24) L 06/06/17 05:15 Hgb O2 Saturation 95.4 % (95.0-98.0) 06/06/17 05:15 FiO2 50.0 % 06/06/17 05:15 Sodium 137 mmol/L (132-148) 06/06/17 07:35 Potassium 4.1 mmol/L (3.6-5.0) 06/06/17 07:35 Chloride 93 mmol/L (98-107) L 06/06/17 07:35 Carbon Dioxide 34 mmol/L (21-33) H 06/06/17 07:35 Anion Gap 14 (10-20) 06/06/17 07:35 BUN 22 mg/dL (7-21) H 06/06/17 07:35 Creatinine 1.0 mg/dL (0.5-1.4) 06/06/17 07:35 Est GFR ( Amer) > 60 06/06/17 07:35 Est GFR (Non-Af Amer) > 60 06/06/17 07:35 POC Glucose (mg/dL) 187 mg/dL (65-110) H 06/04/17 21:26 Random Glucose 149 mg/dL (70-110) H 06/06/17 07:35 Calcium 9.2 mg/dL (8.4-10.5) 06/06/17 07:35 Total Bilirubin 0.4 mg/dL (0.2-1.3) 06/06/17 07:35 AST 14 U/L (15-59) L 06/06/17 07:35 ALT 20 U/L (7-56) 06/06/17 07:35 Alkaline Phosphatase 81 U/L (38-133) 06/06/17 07:35 Lactate Dehydrogenase 289 U/L (333-699) L 06/04/17 15:10 Total Creatine Kinase 20 U/L (35-230) L 06/04/17 15:10 Troponin I < 0.01 ng/mL 06/04/17 15:10 NT-Pro-B Natriuret Pep 603 pg/mL (0-450) H 06/04/17 15:10 Total Protein 7.3 g/dL (5.8-8.3) 06/06/17 07:35 Albumin 3.6 g/dL (3.0-4.8) 06/06/17 07:35 Globulin 3.7 gm/dL 06/06/17 07:35 Albumin/Globulin Ratio 1.0 (1.1-1.8) L 06/06/17 07:35 Lipase 60 U/L (23-300) 06/04/17 15:10 Attending/Attestation - Attestation I have personally seen and examined this patient.: Yes I have fully participated in the care of the patient.: Yes I have reviewed all pertinent clinical information, including history, physical exam and plan: Yes Notes (Text): 06/06/17 21:18 Patient seen and examined at bedside. vitals, labs and notes reviewed. He's sitting comfortably in chair in no acute distress and reports feeling better. Post discharge follow up discussed and agree with the remainder of plan as outlined bay the resident. intermediate prognosis remains guarded in view of his co -morbidities and recurrent hospitalizations.
--- NOTE | 2017-06-06 17:59 | PN ---
DATE: 06/06/2017 SUBJECTIVE: The patient was admitted with respiratory insufficiency. This has been one of a myriad number of hospitalizations for this poor gentleman, who has recurrent admissions. It is unclear why he has such a condition, but one would have to believe the lack of use of medication might be considered to be one possible reason. He remains stable in the hospital for protracted period of time, gets discharged and returns to the hospital within weeks. It appears that he is not getting the correct medication. I do not know the nursing status at home, where the supportive care, back up, needs to be evaluated prior to his discharge on this occasion. The patient is chronically ill with end-stage COPD. He has been taking corticosteroids almost routinely for the last several years. He does not quite taper one dose of medication before being back in the hospital. Perhaps, keeping him on corticosteroids would be helpful in the future. Another possibility is long-term care at the subacute nursing facility. The patient was doing okay until several days ago when he developed further shortness of breath. He became worse while continuing his medical therapy, and he was brought to the hospital for further evaluation and treatment and was thus admitted and placed in the intensive care unit. He had no signs of infection at that time or other problems of note. The patient's history is well known to us. FAMILY HISTORY: Negative. SOCIAL HISTORY: Significant for smoking and COPD. No alcohol use. HOME MEDICATIONS: Include Pulmicort, Tracleer, aspirin, Brovana, Robitussin, Daliresp, Colace, Nexium, Xopenex, prednisone, Lasix, cardiotonics, digoxin, diuretic, and several other medications. REVIEW OF SYSTEMS: Has been unable to obtain. First, the patient is unable to go through the full history, but by reviewing almost all the records, there is a clear a picture of what has been abnormal which includes both cardiopulmonary signs and symptoms with respiratory insufficiency and failure, intubation, extubations, and eventual improvement to the point that he is able to be discharged. All other systems negative. PHYSICAL EXAMINATION GENERAL: He is resting comfortably. He has some tachypnea noticed. VITAL SIGNS: He is afebrile, 98.6, respiratory rate is 18, pulse is 70, blood pressure is 120/70, O2 sat on BiPAP is 97. HEENT: Normocephalic, atraumatic. NECK: Supple. No JVD. No lymphadenopathy. CARDIOVASCULAR: Regular rhythm. S1 and S2. Soft systolic ejection murmur at the lower left sternal border. LUNGS: Global decreasing breath sounds. Minimal bilateral rhonchi and wheezing. Wheezing was not reported yesterday, but it is clearly present today. GASTROINTESTINAL: Abdomen is soft. Bowel sounds are normoactive. No mass, guarding, rebound, or organomegaly. EXTREMITIES: Reveal no clubbing, cyanosis, or edema. NEUROLOGICAL: No focal findings. SKIN: She has no rash or excoriation. LABORATORY STUDIES: Shows a chest x-ray, which showed no changes from previous. No acute or chronic texture, but occasional pulmonary vascular congestion. This is naturally present at this time. Laboratory studies are noted. Arterial blood gas shows a pH of 7.27, PCO2 of 99, PO2 of 53. LDH of 289, BMP of 503. No additional problems noted on current laboratory studies. EKG, sinus rhythm, nonspecific ST-T wave changes. CLINICAL IMPRESSION: 1. Current respiratory insufficiency. 2. Recurrent respiratory failure. 3. Chronic respiratory problems with chronic obstructive pulmonary disease. 4. Morbid obesity, and pulmonary hypertension. 5. 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 6. Coronary artery disease. 7. Congestive heart failure. 8. Pulmonary vascular congestion. PLAN: Continue increased support of care. We believe strongly that the patient should not maintain the current status. He needs to be spoken to by psychology as well as even services. He should remain DNR at this point. He has been in and out of the hospital continuously for over half a decade. This is clearly not beneficial to him. In my opinion, this is not the way to live, but the patient and his family must go through the appropriate channels to decide what is best for them. We will be happy to follow during the course of his hospitalization. I see no further intervention that is necessary. Shayan Payton MD MTDD
== END 2017-06-06 15:57 | disposition home or self-care (01) | DRG 191 ==
LOC: ED 14:57 → ERH 16:38 → 2RNO 19:36
PROVIDERS: ADMIT Internal Medicine; ATTEND Internal Medicine
DX: J44.1 Chronic obstructive pulmonary disease with (acute) exacerbation (principal); E87.4 Mixed disorder of acid-base balance; J96.12 Chronic respiratory failure with hypercapnia; I27.2 Other secondary pulmonary hypertension; I11.0 Hypertensive heart disease with heart failure; I50.30 Unspecified diastolic (congestive) heart failure; E66.01 Morbid (severe) obesity due to excess calories; K21.9 Gastro-esophageal reflux disease without esophagitis; H54.8 Legal blindness, as defined in USA; E11.9 Type 2 diabetes mellitus without complications; I25.10 Atherosclerotic heart disease of native coronary artery without angina pectoris; Z66 Do not resuscitate; Z83.3 Family history of diabetes mellitus; Z87.891 Personal history of nicotine dependence; Z90.49 Acquired absence of other specified parts of digestive tract; Z91.19 Patient's noncompliance with other medical treatment and regimen; L40.9 Psoriasis, unspecified; R39.15 Urgency of urination; R35.0 Frequency of micturition; F41.9 Anxiety disorder, unspecified; F32.89 Other specified depressive episodes; R62.50 Unspecified lack of expected normal physiological development in childhood; R91.8 Other nonspecific abnormal finding of lung field; R53.1 Weakness

== ENCOUNTER 2017-06-22 21:34 | Observation (INO) | payer MEDICARE ==
[2017-06-22] MEDS ORDERED: Albuterol-Ipratrop 3 mg / 0.5 (3 ml) UD IH STA ×2 (22:18→23:59)
--- NOTE | 2017-06-22 22:22 | ED PDOC ---
Arrival/HPI - General Chief Complaint: Shortness Of Breath Time Seen by Provider: 06/22/17 21:57 Historian: Patient - History of Present Illness Narrative History of Present Illness (Text): 06/22/17 22:18 Tremaine Salgado is a 71 year old male, whose past medical history includes COPD, hypertension, CHF, legally blind, diabetes, GERD, left lung mass, and psoriasis , presents to the emergency department complaining of right hip pain s/p mechanical fall yesterday. Patient states was walking in his home using a walker when he lost balance and fell on the right side. Denies any loss of consciousness or head trauma. Patient also complains of mild shortness of breath. Denies fever, chills, headache, dizziness, chest pain, nausea, vomiting , diarrhea, or any other complaints at this time. Time/Duration: Other (yesterday ) Symptom Onset: Sudden Activities at Onset: Significant Context: Home Past Medical History - Provider Review Nursing Documentation Reviewed: Yes - Infectious Disease Hx of Infectious Diseases: None - Tetanus Immunization Tetanus Immunization: Up to Date - Reproductive Currently : No Currently Lactating: No - Cardiac Hx Cardiac Disorders: Yes Hx Hypertension: Yes - Pulmonary Hx Respiratory Disorders: Yes Hx Chronic Obstructive Pulmonary Disease (COPD): Yes (end stage) Hx Pneumonia: Yes - Neurological Hx Neurological Disorder: Yes (Blind since the age of 1.) - HEENT Hx Blind: Yes (since age 1) - Renal Hx Renal Failure: Yes - Endocrine/Metabolic Hx Diabetes Mellitus Type 2: Yes (niddm) - Hematological/Oncological Hx Blood Disorders: Yes Hx Cancer: Yes (lung mass) - Integumentary Hx Dermatological Disorder: Yes (Reddened, flush skin, dry and taut. Thickened, whitish-yellowish skin patch) Hx Psoriasis: Yes Other/Comment: Generalized body surface area, including extremities and torso with reddened, flushed skin with dry, whitish-yellow, thick, scaly, flaky patches. - Musculoskeletal/Rheumatological Hx Falls: Yes (past) - Gastrointestinal Hx Gastrointestinal Disorders: Yes (reflux) - Genitourinary/Gynecological Hx Genitourinary Disorders: Yes Other/Comment: urinary urgency/frequency - Psychiatric Hx Psychophysiologic Disorder: Yes Hx Anxiety: Yes Hx Depression: Yes Hx Substance Use: No (NONE NOTED) - Surgical History Hx Appendectomy: Yes - Anesthesia Hx Anesthesia Reactions: No Hx Malignant Hyperthermia: No - Suicidal Assessment Feels Threatened In Home Enviroment: No Family/Social History - Physician Review Nursing Documentation Reviewed: Yes Family/Social History: No Known Family HX Smoking Status: Former Smoker Hx Alcohol Use: No (NONE NOTED) Hx Substance Use: No (NONE NOTED) Hx Substance Use Treatment: No Allergies/Home Meds Allergies/Adverse Reactions: Allergies No Known Allergies Allergy (Verified 06/04/17 15:31) Home Medications: Home Meds Medication Instructions Recorded Confirmed Esomeprazole Magnesium [Nexium] 40 mg PO DAILY 06/04/17 06/23/17 predniSONE [predniSONE Tab] See Taper PO DAILY 06/04/17 06/23/17 Pantoprazole [Protonix EC Tab] 40 mg PO DAILY 06/23/17 06/23/17 Review of Systems - Physician Review All systems were reviewed & negative as marked: Yes - Review of Systems Constitutional: Normal. absent: Fatigue, Fevers Respiratory: SOB. absent: Cough, Sputum Cardiovascular: absent: Chest Pain, Palpitations Gastrointestinal: absent: Abdominal Pain, Diarrhea, Nausea, Vomiting Genitourinary Male: absent: Dysuria Musculoskeletal: Other (right hip pain ). absent: Back Pain Neurological: absent: Headache, Dizziness, Focal Weakness Physical Exam Vital Signs Reviewed: Yes Vital Signs Temp Pulse Resp BP Pulse Ox 06/23/17 02:04 98.4 F 72 21 114/66 93 L 06/23/17 02:03 114/66 06/22/17 23:49 69 16 107/53 L 93 L 06/22/17 21:51 98.5 F 80 22 103/66 96 Temperature: Afebrile Blood Pressure: Normal Pulse: Regular Respiratory Rate: Normal Appearance: Positive for: Non-Toxic Pain Distress: None Mental Status: Positive for: Alert and Oriented X 3 - Systems Exam Head: Present: Atraumatic, Normocephalic Conjunctiva: Present: Normal Mouth: Present: Moist Mucous Membranes Neck: Present: Normal Range of Motion. No: MIDLINE TENDERNESS, Paraspinal Tenderness Respiratory/Chest: Present: Decreased Breath Sounds (decreased breath sounds b/ l ). No: Respiratory Distress, Accessory Muscle Use Cardiovascular: Present: Regular Rate and Rhythm, Normal S1, S2. No: Murmurs Abdomen: Present: Normal Bowel Sounds. No: Tenderness, Distention, Peritoneal Signs Upper Extremity: Present: Normal ROM, NORMAL PULSES, Neurovascularly Intact, Other (scaly lesions to arms (chronic)). No: Cyanosis, Edema, Tenderness, Swelling Lower Extremity: Present: NORMAL PULSES, Normal ROM, Other (scaly lesions to b/ l legs (chronic). Mild discomfort with right hip flexion. Full range of motion intact ). No: Edema, CALF TENDERNESS, Tenderness, Swelling Neurological: Present: GCS=15, CN II-XII Intact, Speech Normal Skin: Present: Warm, Dry, Normal Color. No: Rashes Psychiatric: Present: Alert, Oriented x 3, Normal Insight, Normal Concentration Medical Decision Making ED Course and Treatment: 06/22/17 22:29 Impression: A 71 year old male who presents to the emergency department complaining of right hip pain s/p fall. Plan: -- EKG -- Labs, cardiac enzymes -- CXR -- Duoneb -- Prednisone -- Hip X-ray -- Reassess and disposition Progress Notes: 06/23/17 01:13 CXR interpreted by me: Shows vascular congestion. R.hip X-ray No acute fracture or dislocation. 06/23/17 02:18 Case discussed with who is aware and agrees with the plan to observe patient at telemetry for COPD exacerbation and CHF. Accepts patient under hospitalist service. - Lab Interpretations Lab Results: 06/22/17 22:40 06/22/17 22:40 Lab Results 06/22/17 22:40: WBC 10.4, RBC 4.21, Hgb 10.2 L, Hct 37.1 L, MCV 88.1, MCH 24.2 L , MCHC 27.5 L, RDW 16.4 H, Plt Count 165, MPV 10.3 06/22/17 22:40: Sodium 139, Potassium 4.1, Chloride 88 L, Carbon Dioxide 46 H, Anion Gap 15, BUN 18, Creatinine 1.0, Est GFR ( Amer) > 60, Est GFR (Non- Af Amer) > 60, Random Glucose 119 H, Calcium 8.4, Total Bilirubin 0.3, AST 10 L , ALT 22, Alkaline Phosphatase 90, Lactate Dehydrogenase 272 L, Total Creatine Kinase < 20 L, Troponin I < 0.01, NT-Pro-B Natriuret Pep 1000 H, Total Protein 5.6 L, Albumin 3.0, Globulin 2.6, Albumin/Globulin Ratio 1.1 06/22/17 22:40: PT 11.4, INR 1.06, APTT 28.3 I have reviewed the lab results: Yes - RAD Interpretation Radiology Orders: 06/22/17 22:17 CHEST PORTABLE [RAD] Stat Hip Bi with Pelvis Fall Protocol [HIP MIN 2V W/ PELVIS CHRISTINE] [RAD] Stat Manager Game: ED Physician - EKG Interpretation Interpreted by ED Physician: Yes Type: 12 lead EKG - Medication Orders Current Medication Orders: Albuterol/Ipratropium (Duoneb 3 Mg/0.5 Mg (3 Ml) Ud) 3 ml IH ONCE STA Stop: 06/23/17 01:06 Discontinued Medications Albuterol/Ipratropium (Duoneb 3 Mg/0.5 Mg (3 Ml) Ud) 3 ml IH ONCE STA Stop: 06/22/17 22:19 Last Admin: 06/22/17 22:40 Dose: 3 ml Albuterol/Ipratropium (Duoneb 3 Mg/0.5 Mg (3 Ml) Ud) 3 ml IH ONCE STA Stop: 06/23/17 00:00 Last Admin: 06/23/17 00:10 Dose: 3 ml Furosemide (Lasix) 40 mg IVP ONCE ONE Stop: 06/23/17 01:14 Last Admin: 06/23/17 02:03 Dose: 40 mg Methylprednisolone (Solu-Medrol) 125 mg IVP ONCE ONE Stop: 06/22/17 22:19 Last Admin: 06/22/17 22:30 Dose: 125 mg - Elizabeth Statement The provider has reviewed the documentation as recorded by the Elziabeth Lara Provider Attestation: All medical record entries made by the Elizabeth were at my direction and personally dictated by me. I have reviewed the chart and agree that the record accurately reflects my personal performance of the history, physical exam, medical decision making, and the department course for this patient. I have also personally directed, reviewed, and agree with the discharge instructions and disposition. Disposition/Present on Arrival - Present on Arrival Any Indicators Present on Arrival: No History of DVT/PE: No History of Uncontrolled Diabetes: No Urinary Catheter: No History of Decub. Ulcer: No History Surgical Site Infection Following: None - Disposition Have Diagnosis and Disposition been Completed?: Yes Diagnosis: CHF (congestive heart failure), COPD exacerbation, Hip strain Disposition: HOSPITALIZED Disposition Time: 02:16 Patient Plan: Observation Patient Problems: Current Active Problems Problem Status Onset COPD exacerbation Acute Hip strain Acute CHF (congestive heart failure) Chronic Condition: STABLE Discharge Instructions (ExitCare): Heart Failure (ED) Referrals: Jose C Ambrocio MD [Primary Care Provider] - Follow up with primary Forms: [employer] (Portuguese)
[2017-06-22 23:17] LABS: HEMOGLOBIN 10.2 g/dL (14.0-18.0); MEAN CELL VOLUME 88.1 fl (80.0-105.0); MEAN CORPUSCULAR HEMOGLOBIN 24.2 pg (25.0-35.0); MEAN CORPUSCULAR HGB CONC 27.5 g/dl (31.0-37.0); MEAN PLATELET VOLUME 10.3 fl (7.0-11.0); RBC 4.21 10^6/uL (3.5-6.1); RED CELL DISTRIBUTION WIDTH 16.4 % (11.5-14.5); WHITE BLOOD COUNT 10.4 10^3/ul (4.5-11.0)
[2017-06-22 23:24] LABS: ALB/GLOB RATIO 1.1 (1.1-1.8); ALT/SGPT 22 U/L (7-56); AST/SGOT 10 U/L (15-59); BLOOD UREA NITROGEN 18 mg/dL (7-21); CALCIUM 8.4 mg/dL (8.4-10.5); GFR AFRICAN-AMERICAN > 60; GFR NON-AFRICAN AMERICAN > 60
[2017-06-22 23:25] LABS: INR 1.06 (0.93-1.08); PARTIAL THROMBOPLASTIN TIME 28.3 Seconds (23.7-30.8); PROTHROMBIN TIME 11.4 Seconds (9.9-11.8)
[2017-06-22 23:36] LABS: B-TYPE NATRIURETIC PEPTIDE 1000 pg/mL (0-450)
[2017-06-22 23:53] LABS: TROPONIN I < 0.01 ng/mL
[2017-06-23] MEDS ORDERED: Albuterol-Ipratrop 3 mg / 0.5 (3 ml) UD IH STA (01:05)
[2017-06-23] MEDS ORDERED: Albuterol 0.042% Inhal Sol (1.25 mg/3 mL) UD IH PRN (02:51)
--- NOTE | 2017-06-23 03:03 | CP.PCM.PN ---
Subjective - Date & Time of Evaluation Date of Evaluation: 06/23/17 Time of Evaluation: 02:56 - Subjective Subjective: 71 M with h/o COPD, chronic CO2 retention, on home bipap, legally blind, NIDDM, psoriasis, ? lung mass, not willing treatment, h/o CAD and possible stent details not available, h/o pulm htn, on treatment, DNR/DNI upon direct discussion with patient, unchanged from prior admissions, presents with sob and fall with c/o left hip area pain, upon eval had wheezes observed in ER post 3 neb treatments and solumedrol, serum bicarb 46 on higher side even for him, suggesting significant CO2 retention, patient was sleeping arousable and oriented x3. Clinically not tender, xray hip negative for any fracture. Plan ABG BIPAP Systemic steroids, doxycycline empiric, duoneb, pulmicort FSBS, home meds GI/DVT prophylaxis DNR/DNI PT/OT eval and treatment See orders for detail. Objective - Vital Signs/Intake and Output Vital Signs (last 24 hours): Temp Pulse Resp BP Pulse Ox 98.4 F 72 21 114/66 93 L 06/23/17 02:04 06/23/17 02:04 06/23/17 02:04 06/23/17 02:04 06/23/17 02:04 - Medications Medications: Current Medications Albuterol Sulfate (Albuterol 0.042% Inhal Melissa (1.25mg/3ml) Ud) 1.25 mg IH Q3 PRN PRN Reason: Wheezing Albuterol/Ipratropium (Duoneb 3 Mg/0.5 Mg (3 Ml) Ud) 3 ml IH Q6 SYDNEY Stop: 06/23/17 18:01 Arformoterol Tartrate (Brovana) 15 mcg IH [id number] SYDNEY Aspirin (Aspirin Chewable) 81 mg PO DAILY SYDNEY Budesonide (Pulmicort Respules) 0.5 mg IH [id number] SYDNEY Diltiazem HCl (Cardizem Cd) 300 mg PO DAILY SYDNEY Docusate Sodium (Colace) 100 mg PO DAILY SYDNEY Doxycycline Hyclate (Doryx) 100 mg PO Q12 SYDNEY PRN Reason: Protocol Insulin Human Regular (Humulin R Low) 0 units SC ACHS SYDNEY PRN Reason: Protocol Non-Formulary Medication (Bosentan [Tracleer]) 125 mg PO BID SYDNEY Non-Formulary Medication (Sitagliptin Phos/Metformin Hcl [Janumet 50-500 Mg Tablet]) 1 each PO BID SYDNEY Pantoprazole Sodium (Protonix Ec Tab) 40 mg PO DAILY SYDNEY Prednisone (Prednisone Tab) 60 mg PO DAILY SYDNEY - Labs Labs: PT 11.4 Seconds (9.9-11.8) 06/22/17 22:40 INR 1.06 (0.93-1.08) 06/22/17 22:40 APTT 28.3 Seconds (23.7-30.8) 06/22/17 22:40
--- NOTE | 2017-06-23 03:46 | CP.PCM.HP ---
<Ry Galan - Last Filed: 06/23/17 05:33> History of Present Illness - History of Present Illness History of Present Illness: 71 yo male with a past medical history of COPD, hypertension, CHF, legally blind , diabetes, GERD, left lung mass, and psoriasis, presents to the emergency department complaining of right hip pain after sustaining a mechanical fall yesterday. He apparently fell on his right side when he was using his walker. History directly obtained from the patient was limited given he was BIPAP at the time of my encounter. In the ED the patient was presumed to be in hypercarbic, hypoxemic impending respiratory failure necessitating the use of BIPAP, three breathing treatments as well the adminsitration of 125 mg of IV solumedrol.. Once his respiratory status was stable he was sent to telemetry for closer monitoring. Of note, the patient would have likely been transferred into the ICU, but given his DNR/DNI status, it was best felt he stay on telemetry. PMH: COPD, Legally Blind, Pulm HTN, CHF, Diabetes, HTN, developmental delay ( per niece), HTN, GERD, CAD, Left Lung Mass, Psoriasis PSH: Hernia (10 years ago) Hospitalizations: Frequent for hypoxemic, hypercarbic respiratory failure Allergies: NKDA Social: Former Smoker (quit 10 years ago) Fam Hx: Sister-DMI Present on Admission - Present on Admission Any Indicators Present on Admission: No Review of Systems - Constitutional Constitutional: As Per HPI Past Patient History - Infectious Disease Hx of Infectious Diseases: None - Tetanus Immunizations Tetanus Immunization: Up to Date - Past Social History Smoking Status: Former Smoker - CARDIAC Hx Cardiac Disorders: Yes Hx Hypertension: Yes - PULMONARY Hx Respiratory Disorders: Yes Hx Chronic Obstructive Pulmonary Disease (COPD): Yes (end stage) Hx Pneumonia: Yes - NEUROLOGICAL Hx Neurological Disorder: Yes (Blind since the age of 1.) - HEENT Hx Blind: Yes (since age 1) - RENAL Hx Renal Failure: Yes - ENDOCRINE/METABOLIC Hx Diabetes Mellitus Type 2: Yes (niddm) - HEMATOLOGICAL/ONCOLOGICAL Hx Blood Disorders: Yes Hx Cancer: Yes (lung mass) - INTEGUMENTARY Hx Dermatological Problems: Yes (Reddened, flush skin, dry and taut. Thickened, whitish-yellowish skin patch) Hx Psoriasis: Yes Other/Comment: Generalized body surface area, including extremities and torso with reddened, flushed skin with dry, whitish-yellow, thick, scaly, flaky patches. - MUSCULOSKELETAL/RHEUMATOLOGICAL Hx Falls: Yes (past) - GASTROINTESTINAL Hx Gastrointestinal Disorders: Yes (reflux) - GENITOURINARY/GYNECOLOGICAL Hx Genitourinary Disorders: Yes Other/Comment: urinary urgency/frequency - PSYCHIATRIC Hx Psychophysiologic Disorder: Yes Hx Anxiety: Yes Hx Depression: Yes Hx Substance Use: No (NONE NOTED) - SURGICAL HISTORY Hx Appendectomy: Yes - ANESTHESIA Hx Anesthesia Reactions: No Hx Malignant Hyperthermia: No Meds Allergies/Adverse Reactions: Allergies Allergy/AdvReac Type Severity Reaction Status Date / Time No Known Allergies Allergy Verified 06/04/17 15:31 Physical Exam - Constitutional Appears: In Acute Distress, Chronically Ill - Head Exam Head Exam: ATRAUMATIC, NORMOCEPHALIC - Eye Exam Eye Exam: Conjunctival injection, Periorbital swelling Pupil Exam: PERRL Additional comments: lids puffy, crusted eyelashes - ENT Exam ENT Exam: Mucous Membranes Dry - Respiratory Exam Respiratory Exam: Accessory Muscle Use, Decreased Breath Sounds, Wheezes, Respiratory Distress Additional comments: breath sounds decreased, right greater than left. - Cardiovascular Exam Additional comments: distant heart sounds - GI/Abdominal Exam GI & Abdominal Exam: absent: Guarding, Rebound, Rigid - Rectal Exam Rectal Exam: Deferred - Extremities Exam Extremities exam: Positive for: pedal edema (1/4) - Neurological Exam Additional comments: somnolent, able to follow simple commands, such as "open your eyes" - Psychiatric Exam Psychiatric exam: Normal Affect, Normal Mood - Skin Skin Exam: Cyanosis, Dry Additional comments: poor skin turgor Results - Vital Signs Recent Vital Signs: Last Vital Signs Temp 98.4 F 06/23/17 02:04 Pulse 72 06/23/17 02:04 Resp 21 06/23/17 02:04 BP 114/66 06/23/17 02:04 Pulse Ox 93 L 06/23/17 02:04 - Labs Result Diagrams: 06/22/17 22:40 06/22/17 22:40 Assessment & Plan - Assessment and Plan (Free Text) Assessment: 71 yo male with a history of COPD, CHF, and frequent admissions for hypercapnic respiratory failure who presents s/p mechanical fall for evaluation and treatment. Plan: 1) Hypercarbic respiratory failure -ABG pending. - CXR shows (to my interpretation) vascular congestion and patchy bilateral infiltrates, similar to those prior. - C/W bipap -Continue Brovana, Atrovent, Xopenex and Dailresp 2) Hip pain s/p fall Bilateral hip X-ray performed, read pending. 3) History of diastolic HF C/W Bosentan Monitor I/O 4) DM II ISS with BG monitoring 5) GI/DVT prophylaxis: Protonix and SCD - Date & Time Date: 06/23/17 Time: 03:45 Decision To Admit - Pt Status Changed To: Hospital Disposition Of: Inpatient Admission - Admit Certification Admit to Inpatient:: After my assessment, the patient will require hospitalization for at least two midnights. This is because of the severity of symptoms shown, intensity of services needed, and/or the medical risk in this patient being treated as an outpatient. - . Bed Request Type: Telemetry Admitting Physician: Calvin Sanz <Calvin Sanz - Last Filed: 06/25/17 23:15> Results - Vital Signs Recent Vital Signs: Last Vital Signs Temp 98.6 F 06/24/17 12:00 Pulse 63 06/24/17 12:00 Resp 20 06/24/17 12:00 BP 121/64 06/24/17 12:00 Pulse Ox 95 06/24/17 06:00 - Labs Result Diagrams: 06/24/17 06:15 06/24/17 06:15 Attending/Attestation - Attestation I have personally seen and examined this patient.: Yes I have fully participated in the care of the patient.: Yes I have reviewed all pertinent clinical information: Yes Notes (Text): 71 M with h/o COPD, chronic CO2 retention, on home bipap, legally blind, NIDDM, psoriasis, ? lung mass, not willing treatment, h/o CAD and possible stent details not available, h/o pulm htn, on treatment, DNR/DNI upon direct discussion with patient, unchanged from prior admissions, presents with sob and fall with c/o left hip area pain, upon eval had wheezes observed in ER post 3 neb treatments and solumedrol, serum bicarb 46 on higher side even for him, suggesting significant CO2 retention, patient was sleeping arousable and oriented x3. Clinically not tender, xray hip negative for any fracture. Plan ABG BIPAP Systemic steroids, doxycycline empiric, duoneb, pulmicort FSBS, home meds GI/DVT prophylaxis DNR/DNI PT/OT eval and treatment See orders for detail.
[2017-06-23 04:46] VITALS: BMI 28.5
[2017-06-23 05:11] LABS: ARTERIAL BLOOD GAS O2 SAT 87.4 % (95-98); ARTERIAL BLOOD GAS PH 7.32 (7.35-7.45); ARTERIAL BLOOD GAS TCO2 52.4 mmol.L (22-28)
[2017-06-23 05:13] LABS: ARTERIAL BLOOD GAS PCO2 96 mm/Hg (35-45)
[2017-06-23 05:14] LABS: ARTERIAL BLOOD GAS HCO3 49.5 mmol/L (21-28)
[2017-06-23] MEDS: Budesonide 0.5 mg/2 ml Inhal Susp UD IH SCH ×2 (07:35→20:15)
[2017-06-23] MEDS: Arformoterol 15 mcg/2 ml Inh Sol IH SCH ×2 (07:35→20:15)
[2017-06-23] MEDS: Insulin Reg-LOW-Coverage SC SCH ×4 (07:54→23:11)
[2017-06-23] MEDS ORDERED: Albuterol-Ipratrop 3 mg / 0.5 (3 ml) UD IH SCH (08:00)
--- NOTE | 2017-06-23 09:06 | RAD ---
HISTORY: fever COMPARISON: 06/04/2017 FINDINGS: LUNGS: There is an infiltrate at the right lung base PLEURA: No significant pleural effusion identified, no pneumothorax apparent. CARDIOVASCULAR: Mild cardiomegaly OSSEOUS STRUCTURES: No significant abnormalities. VISUALIZED UPPER ABDOMEN: Normal. OTHER FINDINGS: None. IMPRESSION: There is infiltrate at the right lung base
--- NOTE | 2017-06-23 09:33 | RAD ---
PROCEDURE: Radiographs of the pelvis and bilateral hips HISTORY: injury/fall COMPARISON: None. FINDINGS: BONES: Pelvis: Unremarkable. Right hip:Unremarkable. Left hip:Unremarkable. JOINTS: Right hip: Unremarkable. Left hip: Unremarkable. Sacroiliac Joints: Unremarkable. Pubic symphysis: Unremarkable. SOFT TISSUES: Normal. OTHER FINDINGS: None. IMPRESSION: Unremarkable radiographs of the hips and pelvis.
[2017-06-23] MEDS ORDERED: [UNRECOGNIZED DRUG - OTHER] PO SCH (10:00)
[2017-06-23] MEDS ORDERED: SITAGLIPTIN PHOS PO SCH (10:00)
[2017-06-23] MEDS ORDERED: METFORMIN HCL PO SCH (10:00)
[2017-06-23] MEDS: Pantoprazole 40 mg EC Tab PO SCH (10:50)
[2017-06-23] MEDS: Tiotropium 18 mcg Cap For Inhalation IH SCH (10:50)
[2017-06-23] MEDS: diltiaZEM 300 mg/24 Hours CD Cap PO SCH (10:54)
[2017-06-23] MEDS: BOSENTAN 125 MG PO SCH ×2 (10:55→18:10)
--- NOTE | 2017-06-23 11:48 | CARD ---
APPROVED REPORT EKG Measurement Heart [id number] <Conclusion> Normal sinus rhythm Nonspecific ST abnormality Abnormal ECG
--- NOTE | 2017-06-23 11:49 | CARD ---
APPROVED REPORT EKG Measurement Heart [id number] <Conclusion> NSR with APCs Base line artefact pl repeat
[2017-06-23] MEDS: cefTRIAXone 1 gm 1 GM/100 ML BAG IVPB SCH (15:53)
--- NOTE | 2017-06-23 22:21 | CON ---
PULMONARY CONSULTATION LOCATION: Room 262, bed 1. DATE: 06/23/2017 HISTORY OF PRESENT ILLNESS: The patient is 71 years old and has had hospitalizations almost semi-weekly through the last several years. Although, I see that he was finally made a DNR/DNI. I have also noted that palliative care has not been introduced in to his medical plan. He has been hospitalized more than being home. For some reason he keeps coming back to the hospital. This has not been evaluated as far as I know. I am not certain if the patient takes his medications on a regular basis, whether he is seen by nursing, whether he is non-compliant with his nebulizer treatments, whether he is nervous to be at home, whether he is mistreated at home, whether there are other problems that keep him from staying home and that he returns to the hospital almost every other week for many years. I believe he has BiPAP at home, which evidently is not working along with the other medications. There must be additional problems involved in his home care that needs further evaluation and I strongly suggest that this be done. This is unfortunate for the patient at least and it is not an adequate life experience for the patient as well. PAST MEDICAL HISTORY: Includes COPD, he is legally blind, pulmonary hypertension, congestive heart failure, diabetes mellitus, hypertension, gastroesophageal reflux disease, coronary artery disease, left lung mass, psoriasis, hernia. ALLERGIES: THERE ARE NO KNOWN ALLERGIES. SOCIAL HISTORY: He is a former smoker and quit 10 years ago. The patient has no travel history. There is no illicit drugs. No anesthesia problems. Psychological problems listed are secondary to depression and anxiety. FAMILY HISTORY: Diabetes mellitus. REVIEW OF SYSTEMS: His review of systems are long, they have been discussed multiple times with the patient in the past. They appear on every consult, previously done over the last 5 years. All other systems negative PHYSICAL EXAMINATION: VITAL SIGNS: Temperature 98.4, pulse 70, respiratory rate 20, blood pressure 114/66, pulse ox 93%. GENERAL: He remains at rest, sleeping today, appearing chronically ill. HEENT: Normocephalic, atraumatic. Eyes: Swelling around the orbits. PERRLA. EOMI. Conjunctivae pink. Mouth is moist. No other abnormalities noted. RESPIRATORY: Global decreased in breath sounds, minimal wheezes auscultated. No acute respiratory distress. CARDIOVASCULAR: Regular rhythm, S1 and S2 without murmur, gallop or rub. GASTROINTESTINAL: Abdomen is obese without mass, guarding, rebound or organomegaly. RECTAL EXAM: Deferred. EXTREMITIES: Reveal no clubbing or cyanosis. There is 1+ edema throughout. NEUROLOGICAL: The patient is sleepy. He is listening and opens his eyes, but does not move. SKIN: Cyanotic but dry. Chest x-ray shows abnormalities without electrolysis, scarring, mass, infiltrates. No significant change from previous films, although the pulmonary vascular congestion does come and go over the years. LABORATORY STUDY: White count of 10,000, hemoglobin of 10, hematocrit 27, glucose of 164. Chemistries not yet available. CLINICAL ASSESSMENT: 1. Chronic obstructive pulmonary disease. The patient has hypercarbic respiratory failure, is on BiPAP, appears to be moving purposely in bed, but not responding to my questions. 2. Chronic obstructive pulmonary disease. He continues on Brovana, Xopenex, Daliresp; needs corticosteroids, which shall be reordered. 3. Hip pain status post fall, follow up is pending. 4. Pulmonary arterial hypertension. Needs to make sure that he continues his Bosentan and monitor closely. 5. Diabetes mellitus type 2. Followup with blood sugar monitoring. PLAN: The patient's family and the patient need to be educated as to the quality of life that we see here. This has not been the first time I have mentioned this and has it been the first time I have mentioned this to the patient or the family; this is how it is fallen on deaf ears, psychologist, psychiatrist, end of life. Nurse needs to discuss his lifestyle with the patient and family. It is my strong belief that the patient would be admitted, had to be seen by a palliative care physician and to be considered for hospice care. I will not continue to make these recommendations. They will be adhered to if the PMD agrees, otherwise I will refrain from persistent suggestions. Vigorous care is essential, I do not see any hope for a long-term solution to his problems, but slow progressive treatment is in order at this time. We will follow closely with you and decide on the need for further intervention. Shayan Payton MD [facility] # [id number] MARINO
[2017-06-24 06:21] VITALS: O2SAT 95
[2017-06-24 06:30] LABS: ARTERIAL BLOOD GAS O2 SAT 94.2 % (95-98); ARTERIAL BLOOD GAS PH 7.33 (7.35-7.45); ARTERIAL BLOOD GAS TCO2 46.3 mmol.L (22-28)
[2017-06-24 06:52] LABS: HEMOGLOBIN 10.8 g/dL (14.0-18.0); MEAN CORPUSCULAR HEMOGLOBIN 24.4 pg (25.0-35.0); MEAN CORPUSCULAR HGB CONC 28.3 g/dl (31.0-37.0); MEAN PLATELET VOLUME 10.7 fl (7.0-11.0); RBC 4.43 10^6/uL (3.5-6.1); RED CELL DISTRIBUTION WIDTH 16.4 % (11.5-14.5); WHITE BLOOD COUNT 10.3 10^3/ul (4.5-11.0)
[2017-06-24 07:16] LABS: ARTERIAL BLOOD GAS HCO3 43.8 mmol/L (21-28); ARTERIAL BLOOD GAS PCO2 83 mm/Hg (35-45)
[2017-06-24 07:25] LABS: ALB/GLOB RATIO 1.1 (1.1-1.8); ALBUMIN 3.3 g/dL (3.0-4.8); ALT/SGPT 26 U/L (7-56); AST/SGOT 19 U/L (15-59); BLOOD UREA NITROGEN 23 mg/dL (7-21); CALCIUM 9.1 mg/dL (8.4-10.5); GFR AFRICAN-AMERICAN > 60; GFR NON-AFRICAN AMERICAN 59
[2017-06-24] MEDS: Budesonide 0.5 mg/2 ml Inhal Susp UD IH SCH (08:01)
[2017-06-24] MEDS: Arformoterol 15 mcg/2 ml Inh Sol IH SCH (08:01)
[2017-06-24] MEDS: Insulin Reg-LOW-Coverage SC SCH ×2 (08:32→11:46)
[2017-06-24] MEDS: Tiotropium 18 mcg Cap For Inhalation IH SCH (10:41)
[2017-06-24] MEDS: diltiaZEM 300 mg/24 Hours CD Cap PO SCH (10:41)
[2017-06-24] MEDS: cefTRIAXone 1 gm 1 GM/100 ML BAG IVPB SCH (10:42)
[2017-06-24] MEDS: Pantoprazole 40 mg EC Tab PO SCH (10:42)
[2017-06-24] MEDS: BOSENTAN 125 MG PO SCH (11:45)
--- NOTE | 2017-06-24 12:05 | PN ---
DATE: 06/24/2017 PULMONARY PROGRESS NOTE LOCATION: Room 265. HISTORY: Mr. Salgado is a 71-year-old male who remains the same. There are no significant changes noted. No additional changes in the current history or symptoms have been noted. SUBJECTIVE: The patient is lying in bed relatively comfortable. PHYSICAL EXAMINATION: GENERAL: He remains lethargic, appearing chronically ill. VITAL SIGNS: Stable with a pulse of 70, afebrile status, respiratory rate of 22, blood pressure of 116/68, and pulse oximetry of 93%. HEENT: Normocephalic and atraumatic. Eyes: PERRLA and EOM's full. RESPIRATORY: Global decrease in breath sounds. Some wheezing persists. ABDOMEN: Obese. No significant changes noted. RECTAL EXAM: Deferred. EXTREMITIES: No clubbing, cyanosis or edema. NEUROLOGIC: No changes noted. NECK: Lymphadenopathy not present. SKIN: A bit cyanotic, but no rash or excoriation. CLINICAL IMPRESSION: 1. Respiratory insufficiency/impending respiratory failure. 2. Chronic obstructive pulmonary disease. 3. Morbid obesity. 4. Pulmonary arterial hypertension. 5. Diabetes mellitus. PLAN: As discussed above and yesterday, we will discuss with PMD. Strongly suggest code status and palliative care be discussed once again with family members. We will follow closely with you and make sure that Tremaine is comfortable and in no acute respiratory distress. Shayan Payton MD
[2017-06-24 12:24] VITALS: BP 121/64; PULSE 63; RESP 20; TEMP 98.6
--- NOTE | 2017-06-24 13:42 | CP.PCM.DIS ---
<FAISAL MOORE - Last Filed: 06/24/17 13:38> Provider - Provider Date of Admission: 06/23/17 02:18 Attending physician: Andriy Reyes MD Primary care physician: Jose C Ambrocio MD Consults: Kimberly: Tata Time Spent in preparation of Discharge (in minutes): 45 Hospital Course - Lab Results Lab Results: Most Recent Lab Values WBC 10.3 10^3/ul (4.5-11.0) 06/24/17 06:15 RBC 4.43 10^6/uL (3.5-6.1) 06/24/17 06:15 Hgb 10.8 g/dL (14.0-18.0) L 06/24/17 06:15 Hct 38.1 % (42.0-52.0) L 06/24/17 06:15 MCV 86.0 fl (80.0-105.0) 06/24/17 06:15 MCH 24.4 pg (25.0-35.0) L 06/24/17 06:15 MCHC 28.3 g/dl (31.0-37.0) L 06/24/17 06:15 RDW 16.4 % (11.5-14.5) H 06/24/17 06:15 Plt Count 179 10^3/uL (120.0-450.0) 06/24/17 06:15 MPV 10.7 fl (7.0-11.0) 06/24/17 06:15 PT 11.4 Seconds (9.9-11.8) 06/22/17 22:40 INR 1.06 (0.93-1.08) 06/22/17 22:40 APTT 28.3 Seconds (23.7-30.8) 06/22/17 22:40 pCO2 83 mm/Hg (35-45) H* 06/24/17 06:15 pO2 63.0 mm/Hg (80-100) L 06/24/17 06:15 HCO3 43.8 mmol/L (21-28) H* 06/24/17 06:15 ABG pH 7.33 (7.35-7.45) L 06/24/17 06:15 ABG Total CO2 46.3 mmol.L (22-28) H 06/24/17 06:15 ABG O2 Saturation 94.2 % (95-98) L 06/24/17 06:15 ABG Base Excess 13.8 mmol/L (-2.0-3.0) H 06/24/17 06:15 ABG Potassium 3.3 mmol/L (3.6-5.2) L 06/24/17 06:15 Sodium 141.0 mmol/L (132-148) 06/24/17 06:15 Chloride 100.0 mmol/L (98-107) 06/24/17 06:15 Glucose 99 mg/dl (75-110) 06/24/17 06:15 Lactate 0.5 mmol/L (0.7-2.1) L 06/24/17 06:15 FiO2 32.0 % 06/24/17 06:15 Sodium 141 mmol/L (132-148) 06/24/17 06:15 Potassium 3.8 mmol/L (3.6-5.0) 06/24/17 06:15 Chloride 91 mmol/L (98-107) L 06/24/17 06:15 Carbon Dioxide 41 mmol/L (21-33) H D 06/24/17 06:15 Anion Gap 13 (10-20) 06/24/17 06:15 BUN 23 mg/dL (7-21) H 06/24/17 06:15 Creatinine 1.2 mg/dL (0.5-1.4) 06/24/17 06:15 Est GFR ( Amer) > 60 06/24/17 06:15 Est GFR (Non-Af Amer) 59 06/24/17 06:15 POC Glucose (mg/dL) 113 mg/dL (65-110) H 06/24/17 11:32 Random Glucose 97 mg/dL (70-110) 06/24/17 06:15 Calcium 9.1 mg/dL (8.4-10.5) 06/24/17 06:15 Total Bilirubin 0.4 mg/dL (0.2-1.3) 06/24/17 06:15 AST 19 U/L (15-59) 06/24/17 06:15 ALT 26 U/L (7-56) 06/24/17 06:15 Alkaline Phosphatase 89 U/L (38-133) 06/24/17 06:15 Lactate Dehydrogenase 272 U/L (333-699) L 06/22/17 22:40 Total Creatine Kinase < 20 U/L (35-230) L 06/22/17 22:40 Troponin I < 0.01 ng/mL 06/22/17 22:40 NT-Pro-B Natriuret Pep 1000 pg/mL (0-450) H 06/22/17 22:40 Total Protein 6.4 g/dL (5.8-8.3) 06/24/17 06:15 Albumin 3.3 g/dL (3.0-4.8) 06/24/17 06:15 Globulin 3.1 gm/dL 06/24/17 06:15 Albumin/Globulin Ratio 1.1 (1.1-1.8) 06/24/17 06:15 Procalcitonin 0.05 NG/ML (0.19-0.49) L 06/24/17 06:15 Arterial Blood Potassium 3.3 mmol/L (3.6-5.2) L 06/24/17 06:15 - Hospital Course Hospital Course: 71 yo male with a past medical history of COPD, hypertension, CHF, legally blind , diabetes, GERD, left lung mass, and psoriasis, presents to the emergency department complaining of right hip pain after sustaining a mechanical fall yesterday. He apparently fell on his right side when he was using his walker. History directly obtained from the patient was limited given he was BIPAP at the time of my encounter. In the ED the patient was presumed to be in hypercarbic, hypoxemic impending respiratory failure necessitating the use of BIPAP, three breathing treatments as well the adminsitration of 125 mg of IV solumedrol.. Once his respiratory status was stable he was sent to telemetry for closer monitoring. Of note, the patient would have likely been transferred into the ICU, but given his DNR/DNI status, it was best felt he stay on telemetry. In the ED, labs and imaging were obtained. ABG showed respiratory alkalosis with metabolic compensation. CXR showed right lung base infiltrate. Hip and pelvis xray were negative. Pt was admitted for COPD exacerbation and placed on BIPAP. Pulm was consulted and recommended palliative care to be discussed. Medication recommendations were appreciated. On second day of admission, pt is awake and AOx3. Respiratory distress improved after BIPAP use. T[facility] vs [facility] was discussed with pt and niece. As TCU was not an option due to availability, the pt and family decided against going to [facility]. Pt decided to continue care with at home with continued BIPAP use. Pt will follow up with PMD to discuss further options. Today, pt was seen and examined at bedside. Pt denied any acute overnight events. Pt states SOB is much improved. Pt denied CP , n/v/d, abdominal pain, vertigo, chills, or fever. Discharge Exam - Head Exam Head Exam: ATRAUMATIC, NORMOCEPHALIC - Eye Exam Eye Exam: EOMI, PERRL - ENT Exam ENT Exam: Mucous Membranes Moist - Neck Exam Neck exam: Full Rom - Respiratory Exam Respiratory Exam: Clear to PA & Lateral. absent: Rales, Rhonchi, Wheezes - Cardiovascular Exam Cardiovascular Exam: RRR, +S1, +S2. absent: Gallop, Rubs, Systolic Murmur - GI/Abdominal Exam GI & Abdominal Exam: Soft, Tenderness. absent: Distended, Guarding, Rebound, Rigid - Extremities Exam Extremities exam: normal inspection - Back Exam Back exam: NORMAL INSPECTION - Neurological Exam Neurological exam: Alert, CN II-XII Intact, Oriented x3 - Psychiatric Exam Psychiatric exam: Normal Affect, Normal Mood - Skin Skin Exam: Dry, Intact, Normal Color, Warm Discharge Plan - Follow Up Plan Condition: STABLE Disposition: HOME/ ROUTINE Instructions: COPD (Chronic Obstructive Pulmonary Disease) (DC), COPD (Chronic Obstructive Pulmonary Disease) (GEN), Fall Prevention (DC), Fall Prevention (GEN ) Additional Instructions: - Follow up with PMD within 2-3 days - Take medications as prescribed - Continue BIPAP use and ensure good maintenance - Return to ED if conditions worsens Referrals: Jose C Ambrocio MD [Primary Care Provider] - <Andriy Reyes - Last Filed: 06/24/17 15:01> Provider - Provider Date of Admission: 06/23/17 02:18 Attending physician: Andriy Reyes MD Primary care physician: Jose C Ambrocio MD Hospital Course - Lab Results Lab Results: Most Recent Lab Values WBC 10.3 10^3/ul (4.5-11.0) 06/24/17 06:15 RBC 4.43 10^6/uL (3.5-6.1) 06/24/17 06:15 Hgb 10.8 g/dL (14.0-18.0) L 06/24/17 06:15 Hct 38.1 % (42.0-52.0) L 06/24/17 06:15 MCV 86.0 fl (80.0-105.0) 06/24/17 06:15 MCH 24.4 pg (25.0-35.0) L 06/24/17 06:15 MCHC 28.3 g/dl (31.0-37.0) L 06/24/17 06:15 RDW 16.4 % (11.5-14.5) H 06/24/17 06:15 Plt Count 179 10^3/uL (120.0-450.0) 06/24/17 06:15 MPV 10.7 fl (7.0-11.0) 06/24/17 06:15 PT 11.4 Seconds (9.9-11.8) 06/22/17 22:40 INR 1.06 (0.93-1.08) 06/22/17 22:40 APTT 28.3 Seconds (23.7-30.8) 06/22/17 22:40 pCO2 83 mm/Hg (35-45) H* 06/24/17 06:15 pO2 63.0 mm/Hg (80-100) L 06/24/17 06:15 HCO3 43.8 mmol/L (21-28) H* 06/24/17 06:15 ABG pH 7.33 (7.35-7.45) L 06/24/17 06:15 ABG Total CO2 46.3 mmol.L (22-28) H 06/24/17 06:15 ABG O2 Saturation 94.2 % (95-98) L 06/24/17 06:15 ABG Base Excess 13.8 mmol/L (-2.0-3.0) H 06/24/17 06:15 ABG Potassium 3.3 mmol/L (3.6-5.2) L 06/24/17 06:15 Sodium 141.0 mmol/L (132-148) 06/24/17 06:15 Chloride 100.0 mmol/L (98-107) 06/24/17 06:15 Glucose 99 mg/dl (75-110) 06/24/17 06:15 Lactate 0.5 mmol/L (0.7-2.1) L 06/24/17 06:15 FiO2 32.0 % 06/24/17 06:15 Sodium 141 mmol/L (132-148) 06/24/17 06:15 Potassium 3.8 mmol/L (3.6-5.0) 06/24/17 06:15 Chloride 91 mmol/L (98-107) L 06/24/17 06:15 Carbon Dioxide 41 mmol/L (21-33) H D 06/24/17 06:15 Anion Gap 13 (10-20) 06/24/17 06:15 BUN 23 mg/dL (7-21) H 06/24/17 06:15 Creatinine 1.2 mg/dL (0.5-1.4) 06/24/17 06:15 Est GFR ( Amer) > 60 06/24/17 06:15 Est GFR (Non-Af Amer) 59 06/24/17 06:15 POC Glucose (mg/dL) 113 mg/dL (65-110) H 06/24/17 11:32 Random Glucose 97 mg/dL (70-110) 06/24/17 06:15 Calcium 9.1 mg/dL (8.4-10.5) 06/24/17 06:15 Total Bilirubin 0.4 mg/dL (0.2-1.3) 06/24/17 06:15 AST 19 U/L (15-59) 06/24/17 06:15 ALT 26 U/L (7-56) 06/24/17 06:15 Alkaline Phosphatase 89 U/L (38-133) 06/24/17 06:15 Lactate Dehydrogenase 272 U/L (333-699) L 06/22/17 22:40 Total Creatine Kinase < 20 U/L (35-230) L 06/22/17 22:40 Troponin I < 0.01 ng/mL 06/22/17 22:40 NT-Pro-B Natriuret Pep 1000 pg/mL (0-450) H 06/22/17 22:40 Total Protein 6.4 g/dL (5.8-8.3) 06/24/17 06:15 Albumin 3.3 g/dL (3.0-4.8) 06/24/17 06:15 Globulin 3.1 gm/dL 06/24/17 06:15 Albumin/Globulin Ratio 1.1 (1.1-1.8) 06/24/17 06:15 Procalcitonin 0.05 NG/ML (0.19-0.49) L 06/24/17 06:15 Arterial Blood Potassium 3.3 mmol/L (3.6-5.2) L 06/24/17 06:15 Attending/Attestation - Attestation I have personally seen and examined this patient.: Yes I have fully participated in the care of the patient.: Yes I have reviewed all pertinent clinical information, including history, physical exam and plan: Yes Notes (Text): 06/24/17 14:36 attending note; Patient seen and examined with resident. Patient is a 71 year old male with a past medical history of COPD, hypertension , CHF, legally blind, diabetes is admitted with hypercapnic respiratory failure. Currently on BiPAP at night. Oxygen during daytime. pulmonary evaluation with Dr. Payton appreciated. Mental status is improving. COPD; Tretaed with DuoNeb treatment/Steroids and antibiotics. Patient is afebrile and nontoxic. Metabolic alkalosis; compensatory due to chronic respiratory acidosis. Treated with diamox. PT evaluation appreciated. No beds available in TCU. Patient and family prefer discharge home and continue home PT. Case discussed with director of casework department in detail. DNI DNR. discharge home today. Upon discharge the patient will follow-up PMD .
== END 2017-06-24 14:33 | disposition home or self-care (01) ==
LOC: ED 21:34 → ERH 06-23 02:18 → 2RNO 06-23 03:55
PROVIDERS: ADMIT Internal Medicine; ATTEND Internal Medicine
DX: J44.1 Chronic obstructive pulmonary disease with (acute) exacerbation (principal); J96.92 Respiratory failure, unspecified with hypercapnia; S76.012A Strain of muscle, fascia and tendon of left hip, initial encounter; I11.0 Hypertensive heart disease with heart failure; I50.9 Heart failure, unspecified; E11.9 Type 2 diabetes mellitus without complications; L40.9 Psoriasis, unspecified; H54.8 Legal blindness, as defined in USA; I27.2 Other secondary pulmonary hypertension; K21.9 Gastro-esophageal reflux disease without esophagitis; I25.10 Atherosclerotic heart disease of native coronary artery without angina pectoris; E87.4 Mixed disorder of acid-base balance; R91.8 Other nonspecific abnormal finding of lung field; W01.0XXA Fall on same level from slipping, tripping and stumbling without subsequent striking against object, initial encounter; Y93.01 Activity, walking, marching and hiking; Y92.410 Unspecified street and highway as the place of occurrence of the external cause; Z66 Do not resuscitate; Z87.891 Personal history of nicotine dependence; Z79.84 Long term (current) use of oral hypoglycemic drugs
CPT/HCPCS: 36415; 71010; 73521; 80053; 82550; 82803; 82948; 83615; 83880; 84145; 84484; 85027; 85610; 85730; 93005; 94640; 94660; 96374; 97162; 97530; 99285; G0378; G8978; G8979; J0696; J1644; J1940; J2930

== ENCOUNTER 2017-07-29 06:37 | Inpatient (IN) | payer MEDICARE ==
[2017-07-29 06:37] VITALS: BMI 28.5
[2017-07-29] MEDS ORDERED: Vancomycin 1gm in NS 250ml 250 ML IVPB STA (07:28)
[2017-07-29] MEDS ORDERED: Cefepime IV 2 gm in NS 100 ML IVPB STA (07:28)
[2017-07-29] MEDS ORDERED: Cefepime IV 2 gm in NS 2 GM/100 ML BAG IVPB STA (07:35)
[2017-07-29] MEDS ORDERED: Vancomycin 1gm in NS 250ml 1 GM/250 ML BAG IVPB STA (07:36)
--- NOTE | 2017-07-29 08:06 | RAD ---
HISTORY: Sepsis Patient COMPARISON: 06/23/2017 FINDINGS: LUNGS: Shallow lung volumes. Diffuse the prominent interstitial lung markings with interval coalescence of them -right upper lobe. Right basal consolidation - consolidations similar -probably slight decrease right pleural effusion. Trace left pleural effusion. PLEURA: As above. No pneumothorax CARDIOVASCULAR: Cardiomegaly pulmonary venous congestion -similar OSSEOUS STRUCTURES: Thoracic spondylosis and dextroscoliosis VISUALIZED UPPER ABDOMEN: Probable hiatal hernia OTHER FINDINGS: None. IMPRESSION: Persistent interstitial lung disease and/or diffuse interstitial pulmonary edema-chronic appearing. Interval increased coalescence - right upper lobe. Persistent -similar right basal consolidation -infiltrate with or without atelectasis. Bilateral pleural effusions greater than left -the right -slightly decreased since 06/23/2017 Cardiomegaly and similar pulmonary venous congestion. Probable hiatal hernia
[2017-07-29] MEDS: Albuterol-Ipratrop 3 mg / 0.5 (3 ml) UD IH SCH ×3 (08:20→09:14)
[2017-07-29 08:36] LABS: VENOUS BLOOD GAS BASE EXCESS 15.9 mmol/L (0.0-2.0); VENOUS BLOOD PH 7.38 (7.32-7.43)
[2017-07-29 08:39] LABS: BASO # 0.02 K/mm3 (0.0-2.0); BASO % 0.1 % (0.0-3.0); EOS % 0.1 % (1.5-5.0); GRAN # 14.6 (1.4-6.5); GRAN % 84.8 % (50.0-68.0); HEMATOCRIT 38.7 % (42.0-52.0); LYMPH # 1.1 (1.2-3.4); LYMPH % 6.5 % (22.0-35.0); MEAN CELL VOLUME 84.7 fl (80.0-105.0); MEAN CORPUSCULAR HEMOGLOBIN 24.1 pg (25.0-35.0); MEAN CORPUSCULAR HGB CONC 28.4 g/dl (31.0-37.0); MEAN PLATELET VOLUME 10.7 fl (7.0-11.0); MONO # 1.5 (0.1-0.6); MONO % 8.5 % (1.0-6.0); WHITE BLOOD COUNT 17.2 10^3/ul (4.5-11.0)
[2017-07-29 08:44] LABS: INR 1.08 (0.93-1.08); PARTIAL THROMBOPLASTIN TIME 28.2 Seconds (23.7-30.8)
[2017-07-29 08:45] LABS: ALKALINE PHOSPHATASE 89 U/L (38-126); ALT/SGPT 20 U/L (7-56); AST/SGOT 17 U/L (17-59); BILIRUBIN,TOTAL 0.7 mg/dL (0.2-1.3); BLOOD UREA NITROGEN 21 mg/dL (7-21); CHLORIDE 93 mmol/L (98-107); GFR AFRICAN-AMERICAN > 60; GLUCOSE,RANDOM 149 mg/dL (70-110); MAGNESIUM 1.7 mg/dL (1.7-2.2); PHOSPHOROUS 3.2 mg/dL (2.5-4.5); POTASSIUM 3.7 mmol/L (3.6-5.0); SODIUM 142 mmol/L (132-148)
[2017-07-29 08:50] LABS: CARBON DIOXIDE 38 mmol/L (21-33)
--- NOTE | 2017-07-29 09:31 | ED PDOC ---
Arrival/HPI - General Chief Complaint: Fever Time Seen by Provider: 07/29/17 07:20 Historian: Patient - History of Present Illness Narrative History of Present Illness (Text): 07/29/17 09:36 A 72 year old male, whose past medical history includes COPD, hypertension, CHF , diabetes, GERD and left lung mass, brought in by EMS to the emergency department complaining of productive cough with sputum, fever, chills and generalized weakness for the past 3-4 days. Patient denies any chest pain or any other complaints at this time. PMD: Dr. Ambrocio Time/Duration: < week Symptom Onset: Sudden Symptom Course: Unchanged Activities at Onset: Rest Context: Home Past Medical History - Provider Review Nursing Documentation Reviewed: Yes - Infectious Disease Hx of Infectious Diseases: None - Tetanus Immunization Tetanus Immunization: Up to Date - Reproductive Currently : No Currently Lactating: No - Cardiac Hx Cardiac Disorders: Yes Hx Congestive Heart Failure: Yes Hx Hypertension: Yes - Pulmonary Hx Chronic Obstructive Pulmonary Disease (COPD): Yes (end stage) Hx Sleep Apnea: Yes - Neurological Hx Neurological Disorder: Yes (Blind since the age of 1.) - HEENT Hx Blind: Yes (since age 1) - Renal Hx Renal Failure: Yes - Endocrine/Metabolic Hx Diabetes Mellitus Type 2: Yes (niddm) - Hematological/Oncological Hx Blood Disorders: Yes Hx Cancer: Yes (lung mass) - Integumentary Hx Dermatological Disorder: Yes (Reddened, flush skin, dry and taut. Thickened, whitish-yellowish skin patch) Hx Psoriasis: Yes Other/Comment: Generalized body surface area, including extremities and torso with reddened, flushed skin with dry, whitish-yellow, thick, scaly, flaky patches. - Musculoskeletal/Rheumatological Hx Falls: Yes (past) - Gastrointestinal Hx Gastrointestinal Disorders: Yes (reflux) - Genitourinary/Gynecological Hx Genitourinary Disorders: Yes Other/Comment: urinary urgency/frequency - Psychiatric Hx Psychophysiologic Disorder: Yes Hx Substance Use: No (NONE NOTED) - Surgical History Hx Appendectomy: Yes - Anesthesia Hx Anesthesia Reactions: No Hx Malignant Hyperthermia: No - Suicidal Assessment Feels Threatened In Home Enviroment: No Family/Social History - Physician Review Nursing Documentation Reviewed: Yes Family/Social History: No Known Family HX Smoking Status: Former Smoker Hx Alcohol Use: Yes Hx Substance Use: No (NONE NOTED) Hx Substance Use Treatment: No Allergies/Home Meds Allergies/Adverse Reactions: Allergies No Known Allergies Allergy (Verified 07/29/17 06:53) Home Medications: Home Meds Medication Instructions Recorded Confirmed Esomeprazole Magnesium [Nexium] 40 mg PO DAILY 06/04/17 07/29/17 predniSONE [predniSONE Tab] See Taper PO DAILY 06/04/17 07/29/17 Pantoprazole [Protonix EC Tab] 40 mg PO DAILY 06/23/17 07/29/17 Cyanocobalamin [Vitamin B12] 500 mcg PO DAILY 07/29/17 07/29/17 guaiFENesin [Robitussin] 100 mg PO TID PRN 07/29/17 07/29/17 Review of Systems - Physician Review All systems were reviewed & negative as marked: Yes Physical Exam - Physical Exam Narrative Physical Exam (Text): 07/29/17 09:31 - Review of Systems Constitutional: fever, chills, generalized weakness absent: Weight Change Eyes: Normal ENT: denies sore throat, denies tristhmus Respiratory: productive cough, SOB Cardiovascular: absent: Chest Pain, Palpitations, Syncope Gastrointestinal: Normal. absent: Abdominal Pain, Diarrhea, Nausea, Vomiting Genitourinary: Normal. absent: Dysuria, Frequency, Hematuria Musculoskeletal: Normal. absent: Arthralgias, Back Pain, Neck Pain Skin: no rashes, no erythema Neurological: absent: Focal Weakness Endocrine: Normal Hemo/Lymphatic: Normal Psychiatric: No suicidal or homicidal ideations Physical exam Patient appears age appropriate in mild resp distress - Systems Exam Head: Present: Atraumatic, Normocephalic Mouth: Present: Moist Mucous Membranes Neck: Present: Normal Range of Motion. No: MIDLINE TENDERNESS, Paraspinal Tenderness Respiratory/Chest: Present: coarse breath sounds b/l; poor inspiration, expiration; mild respiratory distress No: Accessory Muscle Use, Tachypneic Cardiovascular: Present: Regular Rate and Rhythm, Normal S1, S2, Peripheal Pulses Present. No: Murmurs Abdomen: Present: Normal Bowel Sounds. No: Tenderness, Distention, Peritoneal Signs, Rebound, Guarding Back: Present: Normal Inspection. No: Midline Tenderness, Paraspinal Tenderness Upper Extremity: Present: Normal Inspection. No: Cyanosis, Edema Lower Extremity: Present: Normal Inspection. Neurological: Present: GCS=15, Speech Normal, cranial nerves II through XII fully intact with no cerebellar abnormality, neurosensory fully intact. No focal neurological deficits. Skin: eczematous changes to lower extremities Lymphatic: Present: OX3, NI, NC Psychiatric: Present: Alert, Oriented x 3, Normal Insight, Normal Concentration Vital Signs Reviewed: Yes Vital Signs Temp Pulse Resp BP Pulse Ox 07/29/17 10:02 98.0 F 86 24 106/52 L 93 L 07/29/17 06:54 102.2 F H 118 H 28 H 123/53 L 96 Temperature: Febrile Blood Pressure: Hypotensive Pulse: Tachycardic Respiratory Rate: Normal Appearance: Positive for: Well-Appearing, Non-Toxic, Comfortable Pain Distress: None Mental Status: Positive for: Alert and Oriented X 3 Medical Decision Making ED Course and Treatment: 07/29/17 09:27 Impression: A 72 year old male with fever, productive cough, chills and generalized weakness. On physical exam, patient has coarse breath sounds b/l, mild respiratory distress. Plan: -- EKG -- chest xray -- labs -- Urinalysis -- Duoneb, Maxipime, IV fluids, Solucortef, Tylenol, Vancomycin -- Reassess and disposition Prior Visits: Notes and results from previous visits were reviewed. Patient was last seen in the emergency department on 06/22/17 for evaluation of right hip pain s/p mechanical fall. Patient admitted to telemetry for CHF and COPD exacerbation under hospitalist. Patient was discharged on 06/24/17. Progress Notes: Patient with suspected sepsis/PNA, treated with nebulizer, antibiotics, fluids. On reevaluation, patient states he feels better, resolving respiratory distress. Spoke with Dr. Mcghee, who accepts patient to his service. Patient and son are aware and agree with plan to be admitted to hospital. 07/29/17 08:09 chest xray: Creator : Jenniffer Branham V. FINDINGS: LUNGS: Shallow lung volumes. Diffuse the prominent interstitial lung markings with interval coalescence of them -right upper lobe. Right basal consolidation - consolidations similar -probably slight decrease right pleural effusion. Trace left pleural effusion. PLEURA: As above. No pneumothorax CARDIOVASCULAR: Cardiomegaly pulmonary venous congestion -similar OSSEOUS STRUCTURES: Thoracic spondylosis and dextroscoliosis VISUALIZED UPPER ABDOMEN: Probable hiatal hernia IMPRESSION: Persistent interstitial lung disease and/or diffuse interstitial pulmonary edema-chronic appearing. Interval increased coalescence - right upper lobe. Persistent -similar right basal consolidation -infiltrate with or without atelectasis. Bilateral pleural effusions greater than left -the right -slightly decreased since 06/23/2017. Cardiomegaly and similar pulmonary venous congestion. Probable hiatal hernia - Lab Interpretations Lab Results: 07/29/17 08:20 07/29/17 08:20 Lab Results 07/29/17 08:20: Sodium 142, Chloride 93 L, Potassium 3.7, Carbon Dioxide 38 H, Anion Gap 15, BUN 21, Creatinine 1.2, Est GFR ( Amer) > 60, Est GFR (Non- Af Amer) 59, Random Glucose 149 H, Calcium 9.0, Phosphorus 3.2, Magnesium 1.7, Total Bilirubin 0.7, AST 17, ALT 20, Alkaline Phosphatase 89, Total Protein 7.0 , Albumin 3.5, Globulin 3.5, Albumin/Globulin Ratio 1.0 L 07/29/17 08:20: pO2 51, VBG pH 7.38, VBG pCO2 76.0 H*, VBG HCO3 45.0 H, VBG Total CO2 47.3 H, VBG O2 Sat (Calc) 88.5 H, VBG Base Excess 15.9 H, VBG Potassium 3.9, Sodium 138.0, Chloride 98.0, Glucose 157 H, Lactate 0.8, FiO2 21.0, Venous Blood Potassium 3.9 07/29/17 08:20: PT 11.7, INR 1.08, APTT 28.2 07/29/17 08:20: WBC 17.2 H D, RBC 4.57, Hgb 11.0 L, Hct 38.7 L, MCV 84.7, MCH 24.1 L, MCHC 28.4 L, RDW 17.0 H, Plt Count 227, MPV 10.7, Gran % 84.8 H, Lymph % (Auto) 6.5 L, [place] % (Auto) 8.5 H, Eos % (Auto) 0.1 L, Baso % (Auto) 0.1, Gran # 14.60 H, Lymph # 1.1 L, [place] # 1.5 H, Eos # 0.0, Baso # 0.02 I have reviewed the lab results: Yes - RAD Interpretation Radiology Orders: 07/29/17 07:28 CHEST PORTABLE [RAD] Stat - EKG Interpretation Interpreted by ED Physician: Yes Type: 12 lead EKG - Medication Orders Current Medication Orders: Acetaminophen (Tylenol 325mg Tab) 975 mg PO ONCE PRN PRN Reason: Fever >100.4 F Discontinued Medications Acetaminophen (Tylenol 650 Mg Supp) Confirm Administered Dose 650 mg .ROUTE .STK -MED ONE Stop: 07/29/17 06:49 Last Admin: 07/29/17 06:50 Dose: 650 mg MAR Pain/Vitals Document 07/29/17 06:50 SOTO (Rec: 07/29/17 07:00 SOTO [facility] [id number]) Pain Reassessment Is This A Pain ReAssessment? No Sleep Is patient sleeping during reassessment? No Albuterol/Ipratropium (Duoneb 3 Mg/0.5 Mg (3 Ml) Ud) 3 ml IH Q15M [place] Stop: 07/29/17 08:16 Last Admin: 07/29/17 09:14 Dose: 3 ml Hydrocortisone Sodium Succinate (Solu-Cortef) 100 mg IV STAT STA Stop: 07/29/17 07:29 Last Admin: 07/29/17 08:37 Dose: 100 mg eMAR Start Stop Document 07/29/17 08:37 MR (Rec: 07/29/17 08:38 MR [id number]) Intravenous Solution Start Date 07/29/17 Start Time 08:38 Sodium Chloride 2,100 ml/ IV (SUPPLIES) 2,100 mls @ 4,082.34 mls/hr IV ONCE ONE PRN Reason: 60 ML/KG/HR Stop: 07/29/17 07:29 Last Admin: 07/29/17 08:57 Dose: 4,082.34 mls/hr eMAR Start Stop Document 07/29/17 08:57 MR (Rec: 07/29/17 08:57 MR [id number]) Intravenous Solution Start Date 07/29/17 Start Time 08:57 End Date 07/29/17 End time 09:27 Total Infusion Time 30 Cefepime HCl (Maxipime 2gm) 2 gm in 100 mls @ 100 mls/hr IVPB STAT STA PRN Reason: Protocol Stop: 07/29/17 08:34 Last Admin: 07/29/17 08:39 Dose: 100 mls/hr eMAR Start Stop Document 07/29/17 08:39 MR (Rec: 07/29/17 08:39 MR [id number]) Intravenous Solution Start Date 07/29/17 Start Time 08:39 End Date 07/29/17 End time 09:39 Total Infusion Time 60 Vancomycin HCl (Vancomycin 1gm) 1 gm in 250 mls @ 167 mls/hr IVPB STAT STA PRN Reason: Protocol Stop: 07/29/17 09:05 Last Admin: 07/29/17 09:55 Dose: 167 mls/hr eMAR Start Stop Document 07/29/17 09:55 MR (Rec: 07/29/17 09:55 MR [id number]) Intravenous Solution Start Date 07/29/17 Start Time 09:55 End Date 07/29/17 End time 11:25 Total Infusion Time 90 - Scribe Statement The provider has reviewed the documentation as recorded by the Elizabeth Bazan Provider Scribe Attestation: All medical record entries made by the Scribwilmer were at my direction and personally dictated by me. I have reviewed the chart and agree that the record accurately reflects my personal performance of the history, physical exam, medical decision making, and the department course for this patient. I have also personally directed, reviewed, and agree with the discharge instructions and disposition. Disposition/Present on Arrival - Present on Arrival Any Indicators Present on Arrival: No History of DVT/PE: No History of Uncontrolled Diabetes: No Urinary Catheter: No History of Decub. Ulcer: No History Surgical Site Infection Following: None - Disposition Have Diagnosis and Disposition been Completed?: Yes Diagnosis: Pneumonia Disposition: HOSPITALIZED Disposition Time: 10:22 Patient Plan: Admission Condition: FAIR
[2017-07-29] MEDS ORDERED: MethylPREDNISolone 40 mg Vial IVP STA (12:03)
[2017-07-29 13:19] LABS: URINE BILIRUBIN NEGATIVE (NEGATIVE); URINE BLOOD SMALL (NEGATIVE); URINE GLUCOSE (UA) NEGATIVE (NEGATIVE); URINE KETONE 15 mg/dL (NEGATIVE); URINE LEUKOCYTE ESTERASE SMALL Leu/uL (NEGATIVE); URINE PROTEIN 30 mg/dL (<30 mg/dL); URINE UROBILINOGEN 0.2 E.U./dL (<1 E.U./dL)
[2017-07-29 13:20] LABS: URINE APPEARANCE SL CLOUDY (CLEAR); URINE COLOR YELLOW (YELLOW)
[2017-07-29 13:24] LABS: URINE BACTERIA FEW (NEG); URINE WBC 15 - 20 /hpf (0-6)
[2017-07-29] MEDS: Vancomycin 1gm in NS 250ml 1 GM/250 ML BAG IVPB SCH ×3 (13:27→23:38)
--- NOTE | 2017-07-29 14:30 | CP.PCM.CON ---
History of Present Illness - History of Present Illness History of Present Illness: Infectious Disease Consultation: July 29, 2017 72 yo male with fever up to 100.9 F, lethargy, and respiratory distress. The patient is arousable but needs BiPAP to maintain oxygenation. He is lying in bed. Extensive pulmonary disease history including COPD and emphysema. PMHx: CHF, COPD, hypercapnia, right bundle branch block, diastolic congestive heart failure, paroxysmal atrial fibrillation, hypertension, venous thrombosis, blindness, Coronary Artery Disease, non-insulin Dependent Diabetes Mellitus, steroid dependency for pulmonary disease, right-sided heart failure, pulmonary hypertension, developmental delay?, Left lung mass, psoriasis, and severe chronic obstructive pulmonary disease. PSHx: Hernia repair Allergies: NKDA Social Hx: No EtOH or illicit drug use. Ex-smoker of 40 pack year history. Active Medications Acetaminophen (Tylenol 325mg Tab) 975 mg PO ONCE PRN PRN Reason: Fever >100.4 F Alprazolam (Xanax) 0.25 mg PO BID PRN; Protocol PRN Reason: Anxiety Stop: 08/05/17 13:21 Arformoterol Tartrate (Brovana) 15 mcg IH [id number] [facility] Aspirin (Aspirin Chewable) 81 mg PO DAILY SY[place] Budesonide (Pulmicort Respules) 0.5 mg IH [id number] [facility] Cyanocobalamin (Vitamin B12 1000 Mcg Tab) 500 mcg PO DAILY [facility] Diltiazem HCl (Cardizem Cd) 300 mg PO DAILY [facility] Furosemide (Lasix) 40 mg PO BID [facility] Guaifenesin (Robitussin) 100 mg PO TID PRN PRN Reason: Cough Cefepime HCl (Maxipime 2gm) 2 gm in 100 mls @ 100 mls/hr IVPB Q12 SY[place]NEY PRN Reason: Protocol Stop: 08/03/17 22:01 Vancomycin HCl (Vancomycin 1gm) 1 gm in 250 mls @ 167 mls/hr IVPB Q12H [facility] Last Admin: 07/29/17 13:27 Dose: Not Given Bosentan [Tracleer] (125 Mg (Home Med)) 125 mg PO BID SY[place] Pantoprazole Sodium (Protonix Ec Tab) 40 mg PO DAILY [facility] Family Hx: sister - DM ROS: fall and right hip pain. SOB. NO fevers, chills, nausea, vomiting, diarrhea, headaches, dizziness, chest pain, abdominal pain, melena, hematuria, hematemesis , hematochezia, depression, anxiety. Past Patient History - Infectious Disease Hx of Infectious Diseases: None - Tetanus Immunizations Tetanus Immunization: Up to Date - Past Social History Smoking Status: Former Smoker - CARDIAC Hx Cardiac Disorders: Yes Hx Congestive Heart Failure: Yes Hx Hypertension: Yes - PULMONARY Hx Chronic Obstructive Pulmonary Disease (COPD): Yes (end stage) Hx Sleep Apnea: Yes - NEUROLOGICAL Hx Neurological Disorder: Yes (Blind since the age of 1.) - HEENT Hx Blind: Yes (since age 1) - RENAL Hx Renal Failure: Yes - ENDOCRINE/METABOLIC Hx Diabetes Mellitus Type 2: Yes (niddm) - HEMATOLOGICAL/ONCOLOGICAL Hx Blood Disorders: Yes Hx Cancer: Yes (lung mass) - INTEGUMENTARY Hx Dermatological Problems: Yes (Reddened, flush skin, dry and taut. Thickened, whitish-yellowish skin patch) Hx Psoriasis: Yes Other/Comment: Generalized body surface area, including extremities and torso with reddened, flushed skin with dry, whitish-yellow, thick, scaly, flaky patches. - MUSCULOSKELETAL/RHEUMATOLOGICAL Hx Falls: Yes (past) - GASTROINTESTINAL Hx Gastrointestinal Disorders: Yes (reflux) - GENITOURINARY/GYNECOLOGICAL Hx Genitourinary Disorders: Yes Other/Comment: urinary urgency/frequency - PSYCHIATRIC Hx Psychophysiologic Disorder: Yes Hx Substance Use: No (NONE NOTED) - SURGICAL HISTORY Hx Appendectomy: Yes - ANESTHESIA Hx Anesthesia Reactions: No Hx Malignant Hyperthermia: No Meds Allergies/Adverse Reactions: Allergies Allergy/AdvReac Type Severity Reaction Status Date / Time No Known Allergies Allergy Verified 07/29/17 06:53 - Medications Medications: Current Medications Acetaminophen (Tylenol 325mg Tab) 975 mg PO ONCE PRN PRN Reason: Fever >100.4 F Alprazolam (Xanax) 0.25 mg PO BID PRN; Protocol PRN Reason: Anxiety Stop: 08/05/17 13:21 Arformoterol Tartrate (Brovana) 15 mcg IH [id number] [facility] Aspirin (Aspirin Chewable) 81 mg PO DAILY SY[place] Budesonide (Pulmicort Respules) 0.5 mg IH [id number] [facility] Cyanocobalamin (Vitamin B12 1000 Mcg Tab) 500 mcg PO DAILY [facility] Diltiazem HCl (Cardizem Cd) 300 mg PO DAILY [facility] Furosemide (Lasix) 40 mg PO BID [facility] Guaifenesin (Robitussin) 100 mg PO TID PRN PRN Reason: Cough Cefepime HCl (Maxipime 2gm) 2 gm in 100 mls @ 100 mls/hr IVPB Q12 [place]NEY PRN Reason: Protocol Stop: 08/03/17 22:01 Vancomycin HCl (Vancomycin 1gm) 1 gm in 250 mls @ 167 mls/hr IVPB Q12H [facility] Last Admin: 07/29/17 13:27 Dose: Not Given Bosentan [Tracleer] (125 Mg (Home Med)) 125 mg PO BID [facility] Pantoprazole Sodium (Protonix Ec Tab) 40 mg PO DAILY [facility] Physical Exam - Constitutional Appears: In Acute Distress, Chronically Ill Additional comments: poor dentition - Head Exam Head Exam: ATRAUMATIC, NORMOCEPHALIC - Eye Exam Eye Exam: Periorbital tenderness Pupil Exam: NORMAL ACCOMODATION, PERRL Additional comments: puffy eyelids, crusting of the eyelashes bilaterally. - ENT Exam ENT Exam: Mucous Membranes Dry - Neck Exam Neck exam: Positive for: Full Rom, Normal Inspection - Respiratory Exam Respiratory Exam: Accessory Muscle Use, Decreased Breath Sounds, Wheezes, Respiratory Distress Additional comments: decreased breath sounds right worse than left. - Cardiovascular Exam Cardiovascular Exam: REGULAR RHYTHM, RRR, +S1, +S2 - GI/Abdominal Exam GI & Abdominal Exam: Hypoactive Bowel Sounds, Soft. absent: Distended, Tenderness - Extremities Exam Extremities exam: Positive for: pedal edema - Neurological Exam Neurological exam: Alert, CN II-XII Intact Additional comments: at best follows simple commands. - Psychiatric Exam Psychiatric exam: Normal Affect, Normal Mood - Skin Skin Exam: Cyanosis, Dry Additional comments: poor skin turgor Results - Vital Signs Recent Vital Signs: Last Vital Signs Temp 98.0 F 07/29/17 10:02 Pulse 60 07/29/17 13:58 Resp 24 07/29/17 13:58 BP 104/46 L 07/29/17 13:58 Pulse Ox 92 L 07/29/17 13:58 - Labs Result Diagrams: 07/29/17 08:20 07/29/17 08:20 Labs: Laboratory Results - last 24 hr 07/29/17 13:03 Urine Color Yellow Urine Appearance Sl cloudy Urine pH 6.0 Ur Specific Neely 1.025 Urine Protein 30 H Urine Glucose (UA) Negative Urine Ketones 15 H Urine Blood Small H Urine Nitrate Positive H Urine Bilirubin Negative Urine Urobilinogen 0.2 Ur Leukocyte Esterase Small H Urine RBC 1 - 3 Urine WBC 15 - 20 Urine Bacteria Few Assessment & Plan - Assessment and Plan (Free Text) Assessment: 72 yo male with mechanical fall. Leukocytosis likely secondary to fall. No fevers. Patient with extended history of CAD and CHF. Leukocytosis up to 20. Check sams cultures. On Cefepime for antibiotics as this time. Supportive care. Patient appears somewhat dry. Hypercarbic respiratory failure on BiPap now. Supportive care. Thank you for allowing me to participate in the care of the patient, we will follow with you.
--- NOTE | 2017-07-29 15:24 | CP.PCM.HP ---
"<Leighann Echols - Last Filed: 07/29/17 17:11> History of Present Illness - History of Present Illness History of Present Illness: Patient is a 71 y.o male with a PMHx of COPD, Legally Blind, Pulm HTN, CHF, Diabetes, HTN, developmental delay (per niece), HTN, GERD, CAD, Left Lung Mass, and Psoriasis who presented to the hospital with complaints of fevers and chills x 1-2 days associated with productive cough, and generalized weakness. Patient also complains of increased urinary frequency and poor stream x 1 day. ROS Complains of: fever, chills, productive cough, generalized weakness, weak stream , inc. urinary frequency Denies: Chest Pain, Palpitations, SOB with baseline 4L oxygen, abdominal pain, nausea, vomiting, diarrhea, constipation, dysuria, hematuria, back pain, and chest tightness. PMH: COPD, Legally Blind, Pulm HTN, Diastolic CHF with normal LV funcion, Diabetes, HTN, developmental delay (per niece), HTN, GERD, CAD, Left Lung Mass, Psoriasis PSH: Hernia (10 years ago) Hospitalizations: Frequent for hypoxemic, hypercarbic respiratory failure. Most recent was in June for mechanical Fall Allergies: NKDA Social: Former Smoker (quit 10 years ago). Former Drinker. Denies illicit drug use. Fam Hx: Sister-DMI PMD: Dr. Mitchell | Agile Business Analyst: Dr. Edmond Present on Admission - Present on Admission Any Indicators Present on Admission: No Past Patient History - Infectious Disease Hx of Infectious Diseases: None - Tetanus Immunizations Tetanus Immunization: Up to Date - Past Social History Smoking Status: Former Smoker - CARDIAC Hx Cardiac Disorders: Yes Hx Congestive Heart Failure: Yes Hx Hypertension: Yes - PULMONARY Hx Chronic Obstructive Pulmonary Disease (COPD): Yes (end stage) Hx Sleep Apnea: Yes - NEUROLOGICAL Hx Neurological Disorder: Yes (Blind since the age of 1.) - HEENT Hx Blind: Yes (since age 1) - RENAL Hx Renal Failure: Yes - ENDOCRINE/METABOLIC Hx Diabetes Mellitus Type 2: Yes (niddm) - HEMATOLOGICAL/ONCOLOGICAL Hx Blood Disorders: Yes Hx Cancer: Yes (lung mass) - INTEGUMENTARY Hx Dermatological Problems: Yes (Reddened, flush skin, dry and taut. Thickened, whitish-yellowish skin patch) Hx Psoriasis: Yes Other/Comment: Generalized body surface area, including extremities and torso with reddened, flushed skin with dry, whitish-yellow, thick, scaly, flaky patches. - MUSCULOSKELETAL/RHEUMATOLOGICAL Hx Falls: Yes (past) - GASTROINTESTINAL Hx Gastrointestinal Disorders: Yes (reflux) - GENITOURINARY/GYNECOLOGICAL Hx Genitourinary Disorders: Yes Other/Comment: urinary urgency/frequency - PSYCHIATRIC Hx Psychophysiologic Disorder: Yes Hx Substance Use: No (NONE NOTED) - SURGICAL HISTORY Hx Appendectomy: Yes - ANESTHESIA Hx Anesthesia Reactions: No Hx Malignant Hyperthermia: No Meds Allergies/Adverse Reactions: Allergies Allergy/AdvReac Type Severity Reaction Status Date / Time No Known Allergies Allergy Verified 07/29/17 06:53 Results - Vital Signs Recent Vital Signs: Last Vital Signs Temp 98.0 F 07/29/17 10:02 Pulse 60 07/29/17 13:58 Resp 24 07/29/17 13:58 BP 104/46 L 07/29/17 13:58 Pulse Ox 92 L 07/29/17 13:58 - Labs Result Diagrams: 07/29/17 08:20 07/29/17 08:20 Labs: Laboratory Results - last 24 hr 07/29/17 13:03 Urine Color Yellow Urine Appearance Sl cloudy Urine pH 6.0 Ur Specific Earp 1.025 Urine Protein 30 H Urine Glucose (UA) Negative Urine Ketones 15 H Urine Blood Small H Urine Nitrate Positive H Urine Bilirubin Negative Urine Urobilinogen 0.2 Ur Leukocyte Esterase Small H Urine RBC 1 - 3 Urine WBC 15 - 20 Urine Bacteria Few Assessment & Plan - Assessment and Plan (Free Text) Assessment: 71 y.o male with a PMHx of COPD, Legally Blind, Pulm HTN, CHF, Diabetes, HTN, GERD, CAD, Left Lung Mass, and Psoriasis who presents with fevers and chills x 1 -2 days. Patient meets SIRS criteria with fever and elevated White count. CXR on admission read Persistant interstitial lung disease and/or diffuse interstitial pulmonary mary-chronic appearing. Interval increased coalescence- right upper lobe. Persistent similar right basal consolidation-infiltrate with or without atelectasis. Bilateral pleural effusions greater than [id number] -slightly decreased since 06/23/2017. Cardiomegaly and similar pulmonary venous congestion. Probable hiatal hernia. Plan: SIRS UTI vs HCAP 102.2 on admission. Was given Tylenol and is now afebrile Saturating over 90% on 4.5L of O2. Started on Vanc and Cefepime UA shows small Leuk Es. Urine cultures ordered. GONZALEZ cultures ordered Tylenol for fever CXR reading in assessment. ID consulted recs appreciated Pulm HTN -Cont. Bosentan COPD (end stage) -Pulm Consulted (Mayito) -Patient is a CO2 retainer -Continued home medications of Pulmicort and provanna -Solumedrol HTN -hold anti-hypertensive. Patient is not hypertensive Pulm HTN -Cont. Home Bosentan Diastolic CHF -Furosemide 40 BID (Home med) GI/DVT proph Protonix/SCDs Patient seen examined and reviewed with Attending Leighann Echols PGY1 - Date & Time Date: 07/29/17 Time: 11:30 <Cherrie Mcghee MD - Last Filed: 07/30/17 07:47> Results - Vital Signs Recent Vital Signs: Last Vital Signs Temp 98.9 F 07/30/17 06:00 Pulse 74 07/30/17 06:00 Resp 19 07/30/17 06:00 BP 118/56 L 07/30/17 06:00 Pulse Ox 95 07/30/17 06:00 - Labs Result Diagrams: 07/29/17 08:20 07/29/17 08:20 Labs: Laboratory Results - last 24 hr 07/29/17 07/29/17 07/29/17 13:03 13:03 17:51 POC Glucose (mg/dL) 211 H Urine Color Yellow Urine Appearance Sl cloudy Urine pH 6.0 Ur Specific Earp 1.025 Urine Protein 30 H Urine Glucose (UA) Negative Urine Ketones 15 H Urine Blood Small H Urine Nitrate Positive H Urine Bilirubin Negative Urine Urobilinogen 0.2 Ur Leukocyte Esterase Small H Urine RBC 1 - 3 Urine WBC 15 - 20 Urine Bacteria Few Ur L.pneumophila Ag Negative 07/29/17 07/30/17 21:39 07:19 POC Glucose (mg/dL) 167 H 107 Urine Color Urine Appearance Urine pH Ur Specific Earp Urine Protein Urine Glucose (UA) Urine Ketones Urine Blood Urine Nitrate Urine Bilirubin Urine Urobilinogen Ur Leukocyte Esterase Urine RBC Urine WBC Urine Bacteria Ur L.pneumophila Ag Attending/Attestation - Attestation I have personally seen and examined this patient.: Yes I have fully participated in the care of the patient.: Yes I have reviewed all pertinent clinical information: Yes Notes (Text): 07/30/17 07:41 Patient was seen and examined with medical staff assistant. 71 year old male with pmh as severe COPD (on 4L of O2 at home), pulmonary hypertension, obstructive sleep apnea, psoriasis, HTN, NDDM and CAD (s/p stents ) ,CHF with diastolic dysfunction EF 54% on last Echo 02/23, legally blind is admitted with cough/worsening dyspnea and fever.Patient is found to have sepsis due to HCAP Pneumonia, mild acute on chronic CHF exacerbation . Patient is also having mild wheezing due to underlying COPD exacerbation. Agreed with IV antibiotics for HCAP Pneumonia, will follow up cultures and check Procalcitonin level. CHF, will give extra IV lasix and will monitor in tele. COPD, NEB and Steroid, will taper down quickly. Management plan was discussed in detail with patient.Education was provided 07/30/17 07:46"
[2017-07-29] MEDS ORDERED: BOSENTAN 125 MG PO SCH (18:00)
[2017-07-29] MEDS: Insulin Reg-MEDIUM-Coverage SC SCH ×2 (18:21→22:33)
[2017-07-29] MEDS: Budesonide 0.5 mg/2 ml Inhal Susp UD IH SCH (19:34)
[2017-07-29] MEDS: Arformoterol 15 mcg/2 ml Inh Sol IH SCH (19:34)
[2017-07-29] MEDS: Cefepime IV 2 gm in NS 2 GM/100 ML BAG IVPB SCH (22:33)
--- NOTE | 2017-07-29 23:12 | CARD ---
APPROVED REPORT EKG Measurement Heart [id number] <Conclusion> Sinus Tachycardia Incomplete right bundle branch block Nonspecific ST and T wave abnormality Abnormal ECG
[2017-07-30] MEDS ORDERED: Vancomycin 500 mg Inj IVPB SCH (06:00)
[2017-07-30] MEDS: Budesonide 0.5 mg/2 ml Inhal Susp UD IH SCH ×2 (07:47→19:40)
[2017-07-30] MEDS: Arformoterol 15 mcg/2 ml Inh Sol IH SCH ×2 (07:47→19:40)
[2017-07-30] MEDS: Insulin Reg-MEDIUM-Coverage SC SCH ×4 (08:11→22:04)
[2017-07-30 08:28] LABS: BASO # 0.01 K/mm3 (0.0-2.0); BASO % 0.1 % (0.0-3.0); EOS # 0.1 (0.0-0.7); EOS % 0.4 % (1.5-5.0); GRAN # 15.1 (1.4-6.5); GRAN % 83.3 % (50.0-68.0); HEMATOCRIT 36.3 % (42.0-52.0); LYMPH # 1.7 (1.2-3.4); LYMPH % 9.3 % (22.0-35.0); MEAN CORPUSCULAR HEMOGLOBIN 24.1 pg (25.0-35.0); MEAN CORPUSCULAR HGB CONC 28.7 g/dl (31.0-37.0); MEAN PLATELET VOLUME 9.9 fl (7.0-11.0); MONO # 1.2 (0.1-0.6); MONO % 6.9 % (1.0-6.0); WHITE BLOOD COUNT 18.1 10^3/ul (4.5-11.0)
[2017-07-30 08:39] LABS: ALB/GLOB RATIO 0.9 (1.1-1.8); ALKALINE PHOSPHATASE 80 U/L (38-126); ALT/SGPT 21 U/L (7-56); AST/SGOT 13 U/L (17-59); BILIRUBIN,TOTAL 0.4 mg/dL (0.2-1.3); BLOOD UREA NITROGEN 23 mg/dL (7-21); CALCIUM 8.6 mg/dL (8.4-10.5); CARBON DIOXIDE 39 mmol/L (21-33); CHLORIDE 98 mmol/L (98-107); GFR AFRICAN-AMERICAN > 60; GLUCOSE,RANDOM 99 mg/dL (70-110); POTASSIUM 3.7 mmol/L (3.6-5.0); SODIUM 146 mmol/L (132-148); TOTAL PROTEIN 6.5 g/dL (5.8-8.3)
[2017-07-30] MEDS: guaiFENesin 100 mg/5 ml Syrup UD PO PRN (09:54)
[2017-07-30] MEDS: Pantoprazole 40 mg EC Tab PO SCH (09:55)
[2017-07-30] MEDS: Cefepime IV 2 gm in NS 2 GM/100 ML BAG IVPB SCH ×2 (09:56→22:04)
[2017-07-30] MEDS ORDERED: diltiaZEM 300 mg/24 Hours CD Cap PO SCH (10:00)
[2017-07-30] MEDS ORDERED: MethylPREDNISolone 40 mg Vial IVP SCH (10:00)
--- NOTE | 2017-07-30 10:48 | CON ---
DATE: 07/30/2017 REASON FOR CONSULTATION: Chronic obstructive pulmonary disease. REFERRING PHYSICIAN: Dr. Fairchild. HISTORY OF PRESENT ILLNESS: The patient is a 71-year-old male, with past medical history significant for end-stage chronic obstructive pulmonary disease, on home oxygen, recurrent bronchitis, multiple episodes of respiratory failure in the past, left upper lobe lung mass (the patient and family refused workup in the past), coronary artery disease, who presents with increasing shortness of breath at rest, dyspnea on exertion, cough, and sputum production for the past three days. There was no history of chest pain, coughing up a blood or chest pain - made worse with deep respirations. The patient did presented to the emergency room with fevers (102.2). No history of chills or infectious exposure. No history of night sweats, weight loss, or appetite change prior to the above events. No history of leg or calf pains. No history of syncope or diaphoresis. No history of recent travel or trauma. REVIEW OF SYSTEMS: The patient also states to a runny ,stuffy nose over the past three days. No history of nausea, vomiting, or diarrhea. No acute urinary symptoms. No new neurological or musculoskeletal complaints. Rest of the review of system is negative. ALLERGIES: NO KNOWN ALLERGIES. SOCIAL HISTORY: Positive for extensive tobacco usage. No alcohol. FAMILY HISTORY: No inheritable diseases. HOME MEDICATIONS: Include Robitussin, Pulmicort, Brovana, vitamins, Tracleer, Lasix, diltiazem, Janumet, and prednisone. PHYSICAL EXAMINATION GENERAL: The patient is not short of breath at rest. He is not using accessory muscles for breathing. VITAL SIGNS: Temperature 97.9, pulse 80, respirations 19, blood pressure 157/60. Oxygen saturation on nasal cannula is 97%. HEENT: Normocephalic and atraumatic. No JVD. CARDIOVASCULAR: Systolic ejection murmur at the lower left sternal border. No S3 gallop. LUNGS: Decreased breath sounds at the bases. Minimal bilateral rhonchi. Minimal wheezing. EXTREMITIES: Mild edema. No cyanosis. No clubbing. Calves are nontender to palpation. GASTROINTESTINAL: Abdomen is soft, nontender, and nondistended. Bowel sounds are positive. SKIN: No acute rash. NEUROLOGIC: Limited at the present time. LABORATORY DATA: Chest x-ray was done yesterday and reviewed. The most recent x-ray shows a mild increase in the pulmonary vascular congestive changes - compared to previous films. Otherwise, there are chronic changes in the right lower lobe, as well as a chronic left upper lobe lung mass. CBC: White count 17.2, hemoglobin 11.0, hematocrit 38.7, and platelets of 227,000. Complete metabolic profile: Chloride 93, carbon dioxide 38, glucose 211. Rest of the metabolic profile is within normal limits. Procalcitonin was done yesterday and is negative at 0.37. Urinalysis done in the emergency room: Urine nitrate positive, urine leukocyte esterase small. Urine bacteria few. IMPRESSION: 1. Acute, recurrent bronchitis. 2. Upper respiratory tract infection. 3. End-stage chronic obstructive pulmonary disease, on home oxygen. 4. Pulmonary hypertension. 5. Sepsis syndrome. 6. Coronary artery disease. PLAN: The patient presents to [facility] with a three-day history of worsening pulmonary symptoms. As above, he also complains of a runny, stuffy nose for the past three days. When he presented to the emergency room, he was febrile. Thus, he was admitted for additional evaluation and treatment. I did review the chest x-ray as above. The most recent chest x-ray shows a mild increase in the pulmonary vascular congestive changes. Otherwise, I do not appreciate any new significant changes from the previous films. On physical exam, the patient is in mild bronchospasm. I will continue with the current nebulizer treatments and add low dose intravenous steroids this morning. The patient is on oral steroids at home. I would continue the antibiotic coverage as per infectious disease. Input by Dr. Caballero was noted. His temperatures are resolving. Repeat a.m. labs are pending. Clinical status of the patient is certainly improved - compared to the initial presentation. However, the future status/prognosis for this chronically ill patient does remain poor. I will discuss the above with the attending physician later this morning. Thank you very much for this pulmonary consultation. Fabricio Edmond MD MAR[facility]
[2017-07-30] MEDS: Fluticasone Nasal 50 mcg/Spray NS SCH (10:54)
[2017-07-30] MEDS: TRACLEER 125 MG PO SCH ×3 (10:55→19:01)
[2017-07-30] MEDS: Vancomycin 1gm in NS 250ml 1 GM/250 ML BAG IVPB SCH ×2 (12:03→23:49)
--- NOTE | 2017-07-30 14:49 | CP.PCM.PN ---
<Leighann Echols - Last Filed: 07/30/17 14:46> Subjective - Date & Time of Evaluation Date of Evaluation: 07/30/17 Time of Evaluation: 14:46 - Subjective Subjective: Patient has been seen and examined. Denies any SOB, CP, Abdominal pain, urinary or bowel changes. He states that he would like to sit up. Objective - Vital Signs/Intake and Output Vital Signs (last 24 hours): Temp Pulse Resp BP Pulse Ox 99.3 F 78 18 113/52 L 95 07/30/17 11:50 07/30/17 11:50 07/30/17 11:50 07/30/17 11:50 07/30/17 06:00 - Medications Medications: Current Medications Acetaminophen (Tylenol 325mg Tab) 975 mg PO ONCE PRN PRN Reason: Fever >100.4 F Alprazolam (Xanax) 0.25 mg PO BID PRN; Protocol PRN Reason: Anxiety Stop: 08/05/17 13:21 Last Admin: 07/30/17 09:54 Dose: 0.25 mg Arformoterol Tartrate (Brovana) 15 mcg IH [id number] [facility] Last Admin: 07/30/17 07:47 Dose: 15 mcg Aspirin (Aspirin Chewable) 81 mg PO DAILY [facility] Last Admin: 07/30/17 09:55 Dose: 81 mg Budesonide (Pulmicort Respules) 0.5 mg IH [id number] [facility] Last Admin: 07/30/17 07:47 Dose: 0.5 mg Cyanocobalamin (Vitamin B12 1000 Mcg Tab) 500 mcg PO DAILY [facility] Last Admin: 07/30/17 09:55 Dose: 500 mcg Diltiazem HCl (Cardizem Cd) 300 mg PO DAILY [facility] Fluticasone Propionate (Flonase) 1 actuation NS DAILY [facility] Last Admin: 07/30/17 10:54 Dose: 2 units Furosemide (Lasix) 40 mg PO BID [facility] Last Admin: 07/30/17 09:55 Dose: 40 mg Guaifenesin (Robitussin) 100 mg PO TID PRN PRN Reason: Cough Last Admin: 07/30/17 09:54 Dose: 100 mg Home Med (Home Med) 1 unit PO BID [facility] Last Admin: 07/30/17 14:14 Dose: 1 unit Cefepime HCl (Maxipime 2gm) 2 gm in 100 mls @ 100 mls/hr IVPB Q12 [place] PRN Reason: Protocol Stop: 08/03/17 22:01 Last Admin: 07/30/17 09:56 Dose: 100 mls/hr Vancomycin HCl (Vancomycin 1gm) 1 gm in 250 mls @ 167 mls/hr IVPB Q12H [facility] Last Admin: 07/30/17 12:03 Dose: 167 mls/hr Insulin Human Regular (Humulin R Med) 0 units SC ACHS [place] PRN Reason: Protocol Last Admin: 07/30/17 12:03 Dose: 1 units Methylprednisolone (Solu-Medrol) 30 mg IVP Q12 [facility] Last Admin: 07/30/17 09:54 Dose: 30 mg Pantoprazole Sodium (Protonix Ec Tab) 40 mg PO DAILY [facility] Last Admin: 07/30/17 09:55 Dose: 40 mg - Labs Labs: 07/30/17 08:20 07/30/17 08:20 PT 11.7 Seconds (9.9-11.8) 07/29/17 08:20 INR 1.08 (0.93-1.08) 07/29/17 08:20 APTT 28.2 Seconds (23.7-30.8) 07/29/17 08:20 - Constitutional Appears: Well - Head Exam Head Exam: ATRAUMATIC, NORMOCEPHALIC Additional comments: multiple skin tags on face - Eye Exam Additional comments: Legally Blind - Respiratory Exam Respiratory Exam: Clear to Ausculation Bilateral. absent: Rales, Rhonchi, Wheezes - Cardiovascular Exam Cardiovascular Exam: +S1, +S2. absent: Murmur - GI/Abdominal Exam GI & Abdominal Exam: Soft. absent: Tenderness - Extremities Exam Extremities Exam: absent: Pedal Edema - Neurological Exam Neurological Exam: Alert, Awake, Oriented x3 - Psychiatric Exam Psychiatric exam: Normal Affect, Normal Mood Assessment and Plan - Assessment and Plan (Free Text) Assessment: 71 y.o male with a PMHx of COPD, Legally Blind, Pulm HTN, CHF, Diabetes, HTN, GERD, CAD, Left Lung Mass, and Psoriasis who presents with fevers and chills x 1 -2 days. Patient meets SIRS criteria with fever and elevated White count. CXR on admission read Persistant interstitial lung disease and/or diffuse interstitial pulmonary mary-chronic appearing. Interval increased coalescence- right upper lobe. Persistent similar right basal consolidation-infiltrate with or without atelectasis. Bilateral pleural effusions greater than [id number] -slightly decreased since 06/23/2017. Cardiomegaly and similar pulmonary venous congestion. Probable hiatal hernia. Plan: SIRS 2/2 HCAP 102.2 on admission. Was given Tylenol and is now afebrile Saturating over 90% on 4.5L of O2. Will keep Sat. btw 88-92 Started on Vanc and Cefepime Blood and urine cultures are negative. Sputum cultures are pending. Tylenol for fever CXR reading in assessment. ID consulted recs appreciated Pulm HTN -Cont. Bosentan COPD (end stage) -Pulm Consulted (Mayito) -Patient is a CO2 retainer -Continued home medications of Pulmicort and provanna -Solumedrol HTN -hold anti-hypertensive. Patient is not hypertensive Pulm HTN -Cont. Home Bosentan Diastolic CHF -Furosemide 40 BID (Home med) GI/DVT proph Protonix/SCDs Dispo: Will attempt switch to PO antibiotics tomorrow and send home if stable. Pulm (Dr. Edmond) is aware of lung mass which was diagnosed over two years ago. Family is also aware and they refused further workup. Patient is not a candidate for chemo or surgery due to his end veronica COPD and pulmonary HTN. Patient seen examined and reviewed with Attending Leighann Echols PGY1 <Taz PAIZ,[facility] - Last Filed: 07/30/17 14:56> Objective - Vital Signs/Intake and Output Vital Signs (last 24 hours): Temp Pulse Resp BP Pulse Ox 99.3 F 78 18 113/52 L 95 07/30/17 11:50 07/30/17 11:50 07/30/17 11:50 07/30/17 11:50 07/30/17 06:00 - Medications Medications: Current Medications Acetaminophen (Tylenol 325mg Tab) 975 mg PO ONCE PRN PRN Reason: Fever >100.4 F Alprazolam (Xanax) 0.25 mg PO BID PRN; Protocol PRN Reason: Anxiety Stop: 08/05/17 13:21 Last Admin: 07/30/17 09:54 Dose: 0.25 mg Arformoterol Tartrate (Brovana) 15 mcg IH [id number] [facility] Last Admin: 07/30/17 07:47 Dose: 15 mcg Aspirin (Aspirin Chewable) 81 mg PO DAILY [facility] Last Admin: 07/30/17 09:55 Dose: 81 mg Budesonide (Pulmicort Respules) 0.5 mg IH [id number] [facility] Last Admin: 07/30/17 07:47 Dose: 0.5 mg Cyanocobalamin (Vitamin B12 1000 Mcg Tab) 500 mcg PO DAILY [facility] Last Admin: 07/30/17 09:55 Dose: 500 mcg Diltiazem HCl (Cardizem Cd) 300 mg PO DAILY [facility] Fluticasone Propionate (Flonase) 1 actuation NS DAILY [facility] Last Admin: 07/30/17 10:54 Dose: 2 units Furosemide (Lasix) 40 mg PO BID [facility] Last Admin: 07/30/17 09:55 Dose: 40 mg Guaifenesin (Robitussin) 100 mg PO TID PRN PRN Reason: Cough Last Admin: 07/30/17 09:54 Dose: 100 mg Home Med (Home Med) 1 unit PO BID [facility] Last Admin: 07/30/17 14:14 Dose: 1 unit Cefepime HCl (Maxipime 2gm) 2 gm in 100 mls @ 100 mls/hr IVPB Q12 [place] PRN Reason: Protocol Stop: 08/03/17 22:01 Last Admin: 07/30/17 09:56 Dose: 100 mls/hr Vancomycin HCl (Vancomycin 1gm) 1 gm in 250 mls @ 167 mls/hr IVPB Q12H [facility] Last Admin: 07/30/17 12:03 Dose: 167 mls/hr Insulin Human Regular (Humulin R Med) 0 units SC ACHS [facility] PRN Reason: Protocol Last Admin: 07/30/17 12:03 Dose: 1 units Methylprednisolone (Solu-Medrol) 30 mg IVP Q12 [facility] Last Admin: 07/30/17 09:54 Dose: 30 mg Pantoprazole Sodium (Protonix Ec Tab) 40 mg PO DAILY [facility] Last Admin: 07/30/17 09:55 Dose: 40 mg - Labs Labs: 07/30/17 08:20 07/30/17 08:20 PT 11.7 Seconds (9.9-11.8) 07/29/17 08:20 INR 1.08 (0.93-1.08) 07/29/17 08:20 APTT 28.2 Seconds (23.7-30.8) 07/29/17 08:20 Attending/Attestation - Attestation I have personally seen and examined this patient.: Yes I have fully participated in the care of the patient.: Yes I have reviewed all pertinent clinical information, including history, physical exam and plan: Yes Notes (Text): 07/30/17 14:53 Patient was seen and examined with medical technologist prn. 71 year old male with pmh as severe COPD (on 4L of O2 at home), pulmonary hypertension, obstructive sleep apnea, psoriasis, HTN, NDDM and CAD (s/p stents ) ,CHF with diastolic dysfunction EF 54% on last Echo 02/23, legally blind is admitted with cough/worsening dyspnea and fever.Patient is found to have sepsis due to HCAP Pneumonia, mild acute on chronic CHF exacerbation . Patient is feeling better, cultures are negative so far.Procalcitonin level is normal.If remain afebrile, will switch to PO antibiotics in 24 hour COPD, continue NEB , decrease methylprednisolon to 20 mg BID Management plan was discussed in detail with patient.Education was provided
[2017-07-30] MEDS: Albuterol-Ipratrop 3 mg / 0.5 (3 ml) UD IH PRN ×2 (16:03→19:40)
--- NOTE | 2017-07-30 18:01 | CP.PCM.PN ---
Subjective - Date & Time of Evaluation Date of Evaluation: 07/30/17 Time of Evaluation: 16:45 - Subjective Subjective: Infectious Disease Follow Up: July 30, 2017 72 yo male with fever up to 100.9 F, lethargy, and respiratory distress. The patient is arousable but needed BiPAP to maintain oxygenation. He is lying in bed. Extensive pulmonary disease history including COPD and emphysema. Today, the patient has been afebrile. He appears more awaken and alert. He appears more comfortable today. Cultures negative at 24 hours. Objective - Vital Signs/Intake and Output Vital Signs (last 24 hours): Temp Pulse Resp BP Pulse Ox 99.3 F 78 18 113/52 L 95 07/30/17 11:50 07/30/17 11:50 07/30/17 11:50 07/30/17 11:50 07/30/17 06:00 - Medications Medications: Current Medications Acetaminophen (Tylenol 325mg Tab) 975 mg PO ONCE PRN PRN Reason: Fever >100.4 F Albuterol/Ipratropium (Duoneb 3 Mg/0.5 Mg (3 Ml) Ud) 3 ml IH Q3H PRN PRN Reason: Shortness of Breath Last Admin: 07/30/17 16:03 Dose: 3 ml Alprazolam (Xanax) 0.25 mg PO BID PRN; Protocol PRN Reason: Anxiety Stop: 08/05/17 13:21 Last Admin: 07/30/17 09:54 Dose: 0.25 mg Arformoterol Tartrate (Brovana) 15 mcg IH [id number] [facility] Last Admin: 07/30/17 07:47 Dose: 15 mcg Aspirin (Aspirin Chewable) 81 mg PO DAILY [facility] Last Admin: 07/30/17 09:55 Dose: 81 mg Budesonide (Pulmicort Respules) 0.5 mg IH [id number] [facility] Last Admin: 07/30/17 07:47 Dose: 0.5 mg Cyanocobalamin (Vitamin B12 1000 Mcg Tab) 500 mcg PO DAILY [facility] Last Admin: 07/30/17 09:55 Dose: 500 mcg Diltiazem HCl (Cardizem Cd) 300 mg PO DAILY [facility] Fluticasone Propionate (Flonase) 1 actuation NS DAILY [facility] Last Admin: 07/30/17 10:54 Dose: 2 units Furosemide (Lasix) 40 mg PO BID [facility] Last Admin: 07/30/17 09:55 Dose: 40 mg Guaifenesin (Robitussin) 100 mg PO TID PRN PRN Reason: Cough Last Admin: 07/30/17 09:54 Dose: 100 mg Home Med (Home Med) 1 unit PO BID [facility] Last Admin: 07/30/17 14:14 Dose: 1 unit Cefepime HCl (Maxipime 2gm) 2 gm in 100 mls @ 100 mls/hr IVPB Q12 [place] PRN Reason: Protocol Stop: 08/03/17 22:01 Last Admin: 07/30/17 09:56 Dose: 100 mls/hr Vancomycin HCl (Vancomycin 1gm) 1 gm in 250 mls @ 167 mls/hr IVPB Q12H [facility] Last Admin: 07/30/17 12:03 Dose: 167 mls/hr Insulin Human Regular (Humulin R Med) 0 units SC ACHS [place] PRN Reason: Protocol Last Admin: 07/30/17 16:44 Dose: 1 units Methylprednisolone (Solu-Medrol) 20 mg IVP Q12 [facility] Pantoprazole Sodium (Protonix Ec Tab) 40 mg PO DAILY [facility] Last Admin: 07/30/17 09:55 Dose: 40 mg - Labs Labs: 07/30/17 08:20 07/30/17 08:20 PT 11.7 Seconds (9.9-11.8) 07/29/17 08:20 INR 1.08 (0.93-1.08) 07/29/17 08:20 APTT 28.2 Seconds (23.7-30.8) 07/29/17 08:20 - Constitutional Appears: No Acute Distress, Chronically Ill - Head Exam Head Exam: ATRAUMATIC, NORMOCEPHALIC Additional comments: multiple skin tags. - Eye Exam Pupil Exam: NORMAL ACCOMODATION Additional comments: puffy eyelids, crusting of the eyelashes bilaterally. legally blind. - ENT Exam ENT Exam: Mucous Membranes Moist, Normal External Ear Exam, TM's Normal Bilaterally - Neck Exam Neck Exam: Full ROM, Normal Inspection - Respiratory Exam Respiratory Exam: Decreased Breath Sounds, Wheezes Additional comments: decreased breath sounds right worse than left. - Cardiovascular Exam Cardiovascular Exam: REGULAR RHYTHM, RRR, +S1, +S2 - GI/Abdominal Exam GI & Abdominal Exam: Soft, Normal Bowel Sounds. absent: Distended, Tenderness - Extremities Exam Extremities Exam: Pedal Edema - Neurological Exam Neurological Exam: Alert, CN II-XII Intact Additional comments: AAO x 1-2, can follow some simple commands. - Psychiatric Exam Psychiatric exam: Normal Affect, Normal Mood - Skin Additional comments: poor skin turgor, multiple skin tags. Assessment and Plan - Assessment and Plan (Free Text) Assessment: 72 yo male with mechanical fall. Leukocytosis likely secondary to fall. No fevers. Patient with extended history of CAD and CHF. Leukocytosis up to 20. Check sams cultures. On Cefepime for antibiotics as this time. Supportive care. Hypercarbic respiratory failure on BiPap. Supportive care. Patient doing better today. He is more awake and alert. Cultures negative at 24 hours. Chronic medical issues including CHF, COPD, CAD , and pulmonary hypertension. WBC at 18.1 and the patient usually has normal WBC values. Await final culture results. Thank you for allowing me to participate in the care of the patient, we will follow with you.
[2017-07-30] MEDS: MethylPREDNISolone 40 mg Vial IVP SCH (22:04)
[2017-07-31 07:28] LABS: GRAN # 11.95 (1.4-6.5); GRAN % 89.2 % (50.0-68.0); HEMATOCRIT 36.8 % (42.0-52.0); LYMPH # 0.9 (1.2-3.4); LYMPH % 6.9 % (22.0-35.0); MEAN CELL VOLUME 83.1 fl (80.0-105.0); MEAN CORPUSCULAR HEMOGLOBIN 24.4 pg (25.0-35.0); MEAN CORPUSCULAR HGB CONC 29.3 g/dl (31.0-37.0); MEAN PLATELET VOLUME 10.4 fl (7.0-11.0); MONO # 0.5 (0.1-0.6); MONO % 3.9 % (1.0-6.0); RED CELL DISTRIBUTION WIDTH 16.7 % (11.5-14.5); WHITE BLOOD COUNT 13.4 10^3/ul (4.5-11.0)
[2017-07-31] MEDS: Arformoterol 15 mcg/2 ml Inh Sol IH SCH (07:39)
[2017-07-31] MEDS: Budesonide 0.5 mg/2 ml Inhal Susp UD IH SCH (07:40)
[2017-07-31 08:01] LABS: ALKALINE PHOSPHATASE 77 U/L (38-126); ALT/SGPT 16 U/L (7-56); AST/SGOT 16 U/L (17-59); BILIRUBIN,TOTAL 0.3 mg/dL (0.2-1.3); BLOOD UREA NITROGEN 19 mg/dL (7-21); CALCIUM 8.1 mg/dL (8.4-10.5); CARBON DIOXIDE 39 mmol/L (21-33); CHLORIDE 93 mmol/L (98-107); GFR AFRICAN-AMERICAN > 60; GLUCOSE,RANDOM 185 mg/dL (70-110); POTASSIUM 3.5 mmol/L (3.6-5.0); SODIUM 141 mmol/L (132-148); TOTAL PROTEIN 6.7 g/dL (5.8-8.3)
[2017-07-31] MEDS: Insulin Reg-MEDIUM-Coverage SC SCH ×4 (08:48→21:36)
[2017-07-31] MEDS: Cefepime IV 2 gm in NS 2 GM/100 ML BAG IVPB SCH ×2 (09:57→21:57)
[2017-07-31] MEDS: Pantoprazole 40 mg EC Tab PO SCH (09:59)
[2017-07-31] MEDS: Fluticasone Nasal 50 mcg/Spray NS SCH (10:00)
[2017-07-31] MEDS: TRACLEER 125 MG PO SCH ×2 (10:04→18:26)
[2017-07-31] MEDS: MethylPREDNISolone 40 mg Vial IVP SCH ×2 (10:06→21:53)
[2017-07-31] MEDS: guaiFENesin 100 mg/5 ml Syrup UD PO PRN (10:08)
--- NOTE | 2017-07-31 10:22 | PN ---
DATE: 07/31/2017 SUBJECTIVE: The patient appears comfortable this morning. He is not short of breath at rest. PHYSICAL EXAMINATION: VITAL SIGNS: Temperature is 98.4, pulse 71, respirations 19, blood pressure 153/77. Oxygen saturation on BiPAP is 97%. HEENT: Normocephalic, atraumatic. NECK: No JVD. CARDIOVASCULAR: Systolic ejection murmur at the lower left sternal border. No S3 gallop. LUNGS: Decreased breath sounds at the bases. Less rhonchi. No wheezing this morning. EXTREMITIES: Mild edema. No cyanosis. No clubbing. Calves are nontender to palpation. GI: Abdomen is soft, nontender, and nondistended. Bowel sounds are positive. SKIN: No acute rash. NEUROLOGIC: Exam limited at the present time. IMPRESSION: 1. Acute recurrent bronchitis. 2. Upper respiratory tract infection. 3. End-stage chronic obstructive pulmonary disease, on home oxygen. 4. Pulmonary hypertension. 5. Sepsis syndrome. 6. Coronary artery disease. PLAN: The patient appears comfortable this morning. He is not short of breath at rest. He does state to feeling much better overall. On physical exam, his bronchospasm is certainly less. I would continue with the current nebulizer treatments and low-dose intravenous steroids for now. The patient remains on antibiotic therapy. Input by Dr. Caballero(ID) is noted. Temperatures are resolving nicely. Clinical status of the patient is significantly improved - compared to the initial presentation. However, again, the future status/prognosis for this patient remains poor. All are aware. I will discuss the above with the attending physician. Fabricio Edmond MD MTDD
[2017-07-31] MEDS: Vancomycin 1gm in NS 250ml 1 GM/250 ML BAG IVPB SCH (12:30)
--- NOTE | 2017-07-31 14:38 | CP.PCM.PN ---
Subjective - Date & Time of Evaluation Date of Evaluation: 07/31/17 Time of Evaluation: 12:30 - Subjective Subjective: Infectious Disease Follow Up: July 31, 2017 72 yo male with fever up to 100.9 F, lethargy, and respiratory distress. The patient is arousable but needed BiPAP to maintain oxygenation. He is lying in bed. Extensive pulmonary disease history including COPD and emphysema. Today, the patient has been afebrile. He is awake and alert. He is more comfortable today. Cultures negative at 24 hours. He is making no complains at this time and is back at his baseline level. Objective - Vital Signs/Intake and Output Vital Signs (last 24 hours): Temp Pulse Resp BP Pulse Ox 99 F 89 20 115/59 L 97 07/31/17 12:00 07/31/17 12:00 07/31/17 12:00 07/31/17 12:00 07/31/17 06:11 Intake and Output: 07/31/17 07/31/17 06:59 18:59 Intake Total 780 Output Total 500 Balance 280 - Medications Medications: Current Medications Acetaminophen (Tylenol 325mg Tab) 975 mg PO ONCE PRN PRN Reason: Fever >100.4 F Albuterol/Ipratropium (Duoneb 3 Mg/0.5 Mg (3 Ml) Ud) 3 ml IH Q3H PRN PRN Reason: Shortness of Breath Last Admin: 07/30/17 19:40 Dose: 3 ml Alprazolam (Xanax) 0.25 mg PO BID PRN; Protocol PRN Reason: Anxiety Stop: 08/05/17 13:21 Last Admin: 07/30/17 19:01 Dose: 0.25 mg Arformoterol Tartrate (Brovana) 15 mcg IH [id number] [facility] Last Admin: 07/31/17 07:39 Dose: 15 mcg Aspirin (Aspirin Chewable) 81 mg PO DAILY [facility] Last Admin: 07/31/17 09:52 Dose: 81 mg Budesonide (Pulmicort Respules) 0.5 mg IH [id number] [facility] Last Admin: 07/31/17 07:40 Dose: 0.5 mg Cyanocobalamin (Vitamin B12 1000 Mcg Tab) 500 mcg PO DAILY [facility] Last Admin: 07/31/17 09:59 Dose: 500 mcg Diltiazem HCl (Cardizem Cd) 300 mg PO DAILY [facility] Fluticasone Propionate (Flonase) 1 actuation NS DAILY [facility] Last Admin: 07/31/17 10:00 Dose: Not Given Furosemide (Lasix) 40 mg PO BID [facility] Last Admin: 07/31/17 09:59 Dose: 40 mg Guaifenesin (Robitussin) 100 mg PO TID PRN PRN Reason: Cough Last Admin: 07/31/17 10:08 Dose: 100 mg Home Med (Home Med) 1 unit PO BID [facility] Last Admin: 07/31/17 10:04 Dose: 1 unit Cefepime HCl (Maxipime 2gm) 2 gm in 100 mls @ 100 mls/hr IVPB Q12 [place] PRN Reason: Protocol Stop: 08/03/17 22:01 Last Admin: 07/31/17 09:57 Dose: 100 mls/hr Vancomycin HCl (Vancomycin 1gm) 1 gm in 250 mls @ 167 mls/hr IVPB Q12H [facility] Last Admin: 07/30/17 23:49 Dose: 167 mls/hr Insulin Human Regular (Humulin R Med) 0 units SC ACHS [place] PRN Reason: Protocol Last Admin: 07/31/17 12:38 Dose: 1 units Methylprednisolone (Solu-Medrol) 20 mg IVP Q12 [facility] Last Admin: 07/31/17 10:06 Dose: 20 mg Pantoprazole Sodium (Protonix Ec Tab) 40 mg PO DAILY [facility] Last Admin: 07/31/17 09:59 Dose: 40 mg - Labs Labs: 07/31/17 07:23 07/31/17 07:23 PT 11.7 Seconds (9.9-11.8) 07/29/17 08:20 INR 1.08 (0.93-1.08) 07/29/17 08:20 APTT 28.2 Seconds (23.7-30.8) 07/29/17 08:20 - Constitutional Appears: No Acute Distress, Chronically Ill - Head Exam Head Exam: ATRAUMATIC, NORMOCEPHALIC Additional comments: multiple skin tags. - Eye Exam Pupil Exam: NORMAL ACCOMODATION Additional comments: puffy eyelids, crusting of the eyelashes bilaterally. legally blind. - ENT Exam ENT Exam: Mucous Membranes Moist, Normal External Ear Exam, TM's Normal Bilaterally - Neck Exam Neck Exam: Full ROM, Normal Inspection - Respiratory Exam Respiratory Exam: Decreased Breath Sounds. absent: Rales, Rhonchi, Wheezes Additional comments: decreased breath sounds right worse than left. - Cardiovascular Exam Cardiovascular Exam: REGULAR RHYTHM, RRR, +S1, +S2 - GI/Abdominal Exam GI & Abdominal Exam: Soft, Normal Bowel Sounds. absent: Distended, Tenderness - Extremities Exam Extremities Exam: Pedal Edema - Neurological Exam Neurological Exam: Alert, Awake, CN II-XII Intact Additional comments: AAO x 2-3 - Psychiatric Exam Psychiatric exam: Normal Affect, Normal Mood - Skin Additional comments: poor skin turgor, multiple skin tags. Assessment and Plan - Assessment and Plan (Free Text) Assessment: 72 yo male with mechanical fall. Leukocytosis likely secondary to fall. No fevers. Patient with extended history of CAD and CHF. Leukocytosis up to 20. Check sams cultures. On Cefepime for antibiotics as this time. Supportive care. Hypercarbic respiratory failure on BiPap. Supportive care. Patient doing better today. He is more awake and alert. Cultures negative at 24 hours. Chronic medical issues including CHF, COPD, CAD , and pulmonary hypertension. WBC at 13.4 from 18.1 and the patient usually has normal WBC values. Final culture results show no growth. On Nasal Cannula only now. Significantly improved. Thank you for allowing me to participate in the care of the patient, we will follow with you.
--- NOTE | 2017-07-31 20:47 | CP.PCM.PN ---
<Leighann Echols - Last Filed: 07/31/17 20:48> Subjective - Date & Time of Evaluation Date of Evaluation: 07/31/17 Time of Evaluation: 16:00 - Subjective Subjective: Patient has been seen and examined. Denies any fever, chills, SOB, CP, Abdominal pain, urinary symptoms or bowel changes. Objective - Vital Signs/Intake and Output Vital Signs (last 24 hours): Temp Pulse Resp BP Pulse Ox 99 F 85 20 129/69 97 07/31/17 12:00 07/31/17 17:58 07/31/17 12:00 07/31/17 18:23 07/31/17 06:11 - Medications Medications: Current Medications Acetaminophen (Tylenol 325mg Tab) 975 mg PO ONCE PRN PRN Reason: Fever >100.4 F Albuterol/Ipratropium (Duoneb 3 Mg/0.5 Mg (3 Ml) Ud) 3 ml IH Q3H PRN PRN Reason: Shortness of Breath Last Admin: 07/30/17 19:40 Dose: 3 ml Alprazolam (Xanax) 0.25 mg PO BID PRN; Protocol PRN Reason: Anxiety Stop: 08/05/17 13:21 Last Admin: 07/30/17 19:01 Dose: 0.25 mg Arformoterol Tartrate (Brovana) 15 mcg IH [id number] [facility] Last Admin: 07/31/17 07:39 Dose: 15 mcg Aspirin (Aspirin Chewable) 81 mg PO DAILY [facility] Last Admin: 07/31/17 09:52 Dose: 81 mg Budesonide (Pulmicort Respules) 0.5 mg IH [id number] [facility] Last Admin: 07/31/17 07:40 Dose: 0.5 mg Cyanocobalamin (Vitamin B12 1000 Mcg Tab) 500 mcg PO DAILY [facility] Last Admin: 07/31/17 09:59 Dose: 500 mcg Diltiazem HCl (Cardizem Cd) 300 mg PO DAILY [facility] Fluticasone Propionate (Flonase) 1 actuation NS DAILY [facility] Last Admin: 07/31/17 10:00 Dose: Not Given Furosemide (Lasix) 40 mg PO BID [facility] Last Admin: 07/31/17 18:23 Dose: 40 mg Guaifenesin (Robitussin) 100 mg PO TID PRN PRN Reason: Cough Last Admin: 07/31/17 10:08 Dose: 100 mg Home Med (Home Med) 1 unit PO BID [facility] Last Admin: 07/31/17 18:26 Dose: 1 unit Cefepime HCl (Maxipime 2gm) 2 gm in 100 mls @ 100 mls/hr IVPB Q12 [place] PRN Reason: Protocol Stop: 08/03/17 22:01 Last Admin: 07/31/17 09:57 Dose: 100 mls/hr Vancomycin HCl (Vancomycin 1gm) 1 gm in 250 mls @ 167 mls/hr IVPB Q12H [facility] Last Admin: 07/31/17 12:30 Dose: Not Given Insulin Human Regular (Humulin R Med) 0 units SC ACHS [place] PRN Reason: Protocol Last Admin: 07/31/17 18:25 Dose: Not Given Methylprednisolone (Solu-Medrol) 20 mg IVP Q12 [facility] Last Admin: 07/31/17 10:06 Dose: 20 mg Pantoprazole Sodium (Protonix Ec Tab) 40 mg PO DAILY [facility] Last Admin: 07/31/17 09:59 Dose: 40 mg - Labs Labs: 07/31/17 07:23 07/31/17 07:23 PT 11.7 Seconds (9.9-11.8) 07/29/17 08:20 INR 1.08 (0.93-1.08) 07/29/17 08:20 APTT 28.2 Seconds (23.7-30.8) 07/29/17 08:20 - Additional Findings Additional findings: - Constitutional Appears: Well - Head Exam Head Exam: ATRAUMATIC, NORMOCEPHALIC Additional comments: multiple skin tags on face - Eye Exam Additional comments: Legally Blind - Respiratory Exam Respiratory Exam: Clear to Ausculation Bilateral. absent: Rales, Rhonchi, Wheezes - Cardiovascular Exam Cardiovascular Exam: +S1, +S2. absent: Murmur - GI/Abdominal Exam GI & Abdominal Exam: Soft. absent: Tenderness - Extremities Exam Extremities Exam: absent: Pedal Edema - Neurological Exam Neurological Exam: Alert, Awake, Oriented x3 - Psychiatric Exam Psychiatric exam: Normal Affect, Normal Mood Assessment and Plan - Assessment and Plan (Free Text) Assessment: 71 y.o male with a PMHx of COPD, Legally Blind, Pulm HTN, CHF, Diabetes, HTN, GERD, CAD, Left Lung Mass, and Psoriasis who presents with fevers and chills x 1 -2 days. Patient meets SIRS criteria with fever and elevated White count. CXR on admission read Persistant interstitial lung disease and/or diffuse interstitial pulmonary mary-chronic appearing. Interval increased coalescence- right upper lobe. Persistent similar right basal consolidation-infiltrate with or without atelectasis. Bilateral pleural effusions greater than [id number] -slightly decreased since 06/23/2017. Cardiomegaly and similar pulmonary venous congestion. Probable hiatal hernia. Plan: SIRS 2/2 HCAP 102.2 on admission. Was given Tylenol and is now afebrile Saturating over 90% on 4.5L of O2. Will keep Sat. btw 88-92 Started on Vanc and Cefepime Blood and urine cultures are negative. Sputumuncollected Tylenol for fever ID consulted recs appreciated Pulm HTN -Cont. Bosentan COPD (end stage) -Pulm Consulted (Mayito)-recs appreciated -Patient is a CO2 retainer -Continued home medications of Pulmicort and provanna -Solumedrol taper per pulm HTN -hold anti-hypertensive. Patient is not hypertensive Pulm HTN -Cont. Home Bos[place]an Diastolic CHF -Furosemide 40 BID (Home med) GI/DVT proph Protonix/SCDs Dispo: Will attempt switch to PO antibiotics tomorrow and send home if stable. Pulm (Dr. Edmond) is aware of lung mass which was diagnosed over two years ago. Family is also aware and they refused further workup. Patient is not a candidate for chemo or surgery due to his end veronica COPD and pulmonary HTN. Patient seen examined and reviewed with Attending Leighann Echols PGY1 <[facility]IZ[facility] - Last Filed: 08/01/17 10:07> Objective - Vital Signs/Intake and Output Vital Signs (last 24 hours): Temp Pulse Resp BP Pulse Ox 98.4 F 71 20 120/74 97 08/01/17 06:00 08/01/17 06:00 08/01/17 06:00 08/01/17 09:33 08/01/17 06:00 Intake and Output: 08/01/17 08/01/17 06:59 18:59 Intake Total 450 240 Output Total 400 850 Balance 50 -610 - Medications Medications: Current Medications Acetaminophen (Tylenol 325mg Tab) 975 mg PO ONCE PRN PRN Reason: Fever >100.4 F Albuterol/Ipratropium (Duoneb 3 Mg/0.5 Mg (3 Ml) Ud) 3 ml IH Q3H PRN PRN Reason: Shortness of Breath Last Admin: 08/01/17 07:41 Dose: 3 ml Alprazolam (Xanax) 0.25 mg PO BID PRN; Protocol PRN Reason: Anxiety Stop: 08/05/17 13:21 Last Admin: 07/30/17 19:01 Dose: 0.25 mg Arformoterol Tartrate (Brovana) 15 mcg IH [id number] [facility] Last Admin: 08/01/17 07:41 Dose: 15 mcg Aspirin (Aspirin Chewable) 81 mg PO DAILY [facility] Last Admin: 08/01/17 09:33 Dose: 81 mg Budesonide (Pulmicort Respules) 0.5 mg IH [id number] [facility] Last Admin: 08/01/17 07:41 Dose: 0.5 mg Cyanocobalamin (Vitamin B12 1000 Mcg Tab) 500 mcg PO DAILY [facility] Last Admin: 08/01/17 09:32 Dose: 500 mcg Diltiazem HCl (Cardizem Cd) 300 mg PO DAILY [facility] Fluticasone Propionate (Flonase) 1 actuation NS DAILY [facility] Last Admin: 08/01/17 09:41 Dose: Not Given Furosemide (Lasix) 40 mg PO BID [facility] Last Admin: 08/01/17 09:33 Dose: 40 mg Guaifenesin (Robitussin) 100 mg PO TID PRN PRN Reason: Cough Last Admin: 07/31/17 10:08 Dose: 100 mg Home Med (Home Med) 1 unit PO BID [facility] Last Admin: 08/01/17 10:03 Dose: 1 unit Cefepime HCl (Maxipime 2gm) 2 gm in 100 mls @ 100 mls/hr IVPB Q12 [place] PRN Reason: Protocol Stop: 08/03/17 22:01 Last Admin: 08/01/17 09:40 Dose: 100 mls/hr Vancomycin HCl (Vancomycin 1gm) 1 gm in 250 mls @ 167 mls/hr IVPB Q12H [facility] Last Admin: 08/01/17 00:29 Dose: 167 mls/hr Insulin Human Regular (Humulin R Med) 0 units SC ACHS [facility] PRN Reason: Protocol Last Admin: 08/01/17 07:46 Dose: Not Given Pantoprazole Sodium (Protonix Ec Tab) 40 mg PO DAILY [facility] Last Admin: 08/01/17 09:38 Dose: 40 mg Prednisone (Prednisone Tab) 40 mg PO BRK [facility] Last Admin: 08/01/17 09:32 Dose: 40 mg - Labs Labs: 08/01/17 07:51 08/01/17 07:51 PT 11.7 Seconds (9.9-11.8) 07/29/17 08:20 INR 1.08 (0.93-1.08) 07/29/17 08:20 APTT 28.2 Seconds (23.7-30.8) 07/29/17 08:20 Attending/Attestation - Attestation I have personally seen and examined this patient.: Yes I have fully participated in the care of the patient.: Yes I have reviewed all pertinent clinical information, including history, physical exam and plan: Yes Notes (Text): 08/01/17 10:04 Patient was seen and examined with certified medical aide. 71 year old male with pmh as severe COPD (on 4L of O2 at home), pulmonary hypertension, obstructive sleep apnea, psoriasis, HTN, NDDM and CAD (s/p stents ) ,CHF with diastolic dysfunction EF 54% on last Echo 02/23, legally blind was admitted with cough/worsening dyspnea and fever.Patient is treated for HCAP Pneumonia, mild acute on chronic CHF exacerbation and copd exacerbation. Patient is feeling better, cultures are negative so far.Procalcitonin level is normal.He is feeling close to his base line.He is at base line hypoxia.We will ambulate patient.If no worsening hypoxia with ambulation, he can be discharged home. Patient CT chest 2014 showed left upper lung mass, discuss with patient, he will follow with his Furniture Mover Driver for any work regarding lung mass. Prognosis is guarded. Management plan was discussed in detail with patient.Education was provided
[2017-08-01] MEDS: Vancomycin 1gm in NS 250ml 1 GM/250 ML BAG IVPB SCH ×2 (00:29→12:40)
[2017-08-01 06:10] VITALS: O2SAT 97
[2017-08-01] MEDS: Budesonide 0.5 mg/2 ml Inhal Susp UD IH SCH (07:41)
[2017-08-01] MEDS: Arformoterol 15 mcg/2 ml Inh Sol IH SCH (07:41)
[2017-08-01] MEDS: Albuterol-Ipratrop 3 mg / 0.5 (3 ml) UD IH PRN (07:41)
[2017-08-01] MEDS: Insulin Reg-MEDIUM-Coverage SC SCH ×2 (07:46→12:38)
[2017-08-01 08:00] LABS: BASO # 0.02 K/mm3 (0.0-2.0); BASO % 0.1 % (0.0-3.0); EOS # 0.1 (0.0-0.7); EOS % 0.7 % (1.5-5.0); GRAN # 11.04 (1.4-6.5); GRAN % 79.5 % (50.0-68.0); HEMATOCRIT 38.6 % (42.0-52.0); LYMPH # 1.8 (1.2-3.4); LYMPH % 13.1 % (22.0-35.0); MEAN CELL VOLUME 83.5 fl (80.0-105.0); MEAN CORPUSCULAR HEMOGLOBIN 23.8 pg (25.0-35.0); MEAN CORPUSCULAR HGB CONC 28.5 g/dl (31.0-37.0); MEAN PLATELET VOLUME 10.4 fl (7.0-11.0); MONO # 0.9 (0.1-0.6); MONO % 6.6 % (1.0-6.0); RED CELL DISTRIBUTION WIDTH 16.8 % (11.5-14.5); WHITE BLOOD COUNT 13.9 10^3/ul (4.5-11.0)
[2017-08-01 08:25] LABS: ALB/GLOB RATIO 0.9 (1.1-1.8); ALKALINE PHOSPHATASE 79 U/L (38-126); ALT/SGPT 27 U/L (7-56); AST/SGOT 20 U/L (17-59); BILIRUBIN,TOTAL 0.4 mg/dL (0.2-1.3); BLOOD UREA NITROGEN 17 mg/dL (7-21); CALCIUM 8.6 mg/dL (8.4-10.5); CHLORIDE 92 mmol/L (95-110); GFR AFRICAN-AMERICAN > 60; GLUCOSE,RANDOM 128 mg/dL (70-110); POTASSIUM 3.4 mmol/L (3.6-5.0); SODIUM 141 mmol/L (132-148); TOTAL PROTEIN 7.1 g/dL (5.8-8.3)
[2017-08-01 08:42] LABS: CARBON DIOXIDE 41 mmol/L (21-33)
[2017-08-01] MEDS ORDERED: Potassium Chloride 40 mEq/30 ml LIQ UD PO STA (09:35)
[2017-08-01] MEDS: Fluticasone Nasal 50 mcg/Spray NS SCH ×2 (09:38→09:41)
[2017-08-01] MEDS: Pantoprazole 40 mg EC Tab PO SCH (09:38)
[2017-08-01] MEDS: Cefepime IV 2 gm in NS 2 GM/100 ML BAG IVPB SCH (09:40)
[2017-08-01] MEDS: TRACLEER 125 MG PO SCH (10:03)
--- NOTE | 2017-08-01 11:32 | CP.PCM.DIS ---
<Mirza Terrazas - Last Filed: 08/01/17 11:43> Provider - Provider Date of Admission: 07/29/17 09:55 Attending physician: Cherrie Mcghee MD Primary care physician: Jose C Ambrocio MD Time Spent in preparation of Discharge (in minutes): 45 Hospital Course - Lab Results Lab Results: Micro Results 07/29/17 15:18 Urine,Clean Catch Urine Culture - Final No Growth (<1,000 CFU/ML) Most Recent Lab Values WBC 13.9 10^3/ul (4.5-11.0) H 08/01/17 07:51 RBC 4.62 10^6/uL (3.5-6.1) 08/01/17 07:51 Hgb 11.0 g/dL (14.0-18.0) L 08/01/17 07:51 Hct 38.6 % (42.0-52.0) L 08/01/17 07:51 MCV 83.5 fl (80.0-105.0) 08/01/17 07:51 MCH 23.8 pg (25.0-35.0) L 08/01/17 07:51 MCHC 28.5 g/dl (31.0-37.0) L 08/01/17 07:51 RDW 16.8 % (11.5-14.5) H 08/01/17 07:51 Plt Count 239 10^3/uL (120.0-450.0) 08/01/17 07:51 MPV 10.4 fl (7.0-11.0) 08/01/17 07:51 Gran % 79.5 % (50.0-68.0) H 08/01/17 07:51 Lymph % (Auto) 13.1 % (22.0-35.0) L 08/01/17 07:51 [place] % (Auto) 6.6 % (1.0-6.0) H 08/01/17 07:51 Eos % (Auto) 0.7 % (1.5-5.0) L 08/01/17 07:51 Baso % (Auto) 0.1 % (0.0-3.0) 08/01/17 07:51 Gran # 11.04 (1.4-6.5) H 08/01/17 07:51 Lymph # 1.8 (1.2-3.4) 08/01/17 07:51 [place] # 0.9 (0.1-0.6) H 08/01/17 07:51 Eos # 0.1 (0.0-0.7) 08/01/17 07:51 Baso # 0.02 K/mm3 (0.0-2.0) 08/01/17 07:51 PT 11.7 Seconds (9.9-11.8) 07/29/17 08:20 INR 1.08 (0.93-1.08) 07/29/17 08:20 APTT 28.2 Seconds (23.7-30.8) 07/29/17 08:20 pO2 51 mm/Hg (30-55) 07/29/17 08:20 VBG pH 7.38 (7.32-7.43) 07/29/17 08:20 VBG pCO2 76.0 (40-60) H* 07/29/17 08:20 VBG HCO3 45.0 mmol/l (21-28) H 07/29/17 08:20 VBG Total CO2 47.3 mmol.L (22-28) H 07/29/17 08:20 VBG O2 Sat (Calc) 88.5 % (40-65) H 07/29/17 08:20 VBG Base Excess 15.9 mmol/L (0.0-2.0) H 07/29/17 08:20 VBG Potassium 3.9 mmol/L (3.6-5.2) 07/29/17 08:20 Sodium 138.0 mmol/L (132-148) 07/29/17 08:20 Chloride 98.0 mmol/L (98-107) 07/29/17 08:20 Glucose 157 mg/dl (75-110) H 07/29/17 08:20 Lactate 0.8 mmol/L (0.7-2.1) 07/29/17 08:20 FiO2 21.0 % 07/29/17 08:20 Sodium 141 mmol/L (132-148) 08/01/17 07:51 Potassium 3.4 mmol/L (3.6-5.0) L 08/01/17 07:51 Chloride 92 mmol/L (95-110) L 08/01/17 07:51 Carbon Dioxide 41 mmol/L (21-33) H 08/01/17 07:51 Anion Gap 11 (10-20) 08/01/17 07:51 BUN 17 mg/dL (7-21) 08/01/17 07:51 Creatinine 0.9 mg/dL (0.5-1.4) 08/01/17 07:51 Est GFR ( Amer) > 60 08/01/17 07:51 Est GFR (Non-Af Amer) > 60 08/01/17 07:51 POC Glucose (mg/dL) 168 mg/dL (65-110) H 07/31/17 12:13 Random Glucose 128 mg/dL (70-110) H 08/01/17 07:51 Calcium 8.6 mg/dL (8.4-10.5) 08/01/17 07:51 Phosphorus 3.2 mg/dL (2.5-4.5) 07/29/17 08:20 Magnesium 1.7 mg/dL (1.7-2.2) 07/29/17 08:20 Total Bilirubin 0.4 mg/dL (0.2-1.3) 08/01/17 07:51 AST 20 U/L (17-59) 08/01/17 07:51 ALT 27 U/L (7-56) 08/01/17 07:51 Alkaline Phosphatase 79 U/L (38-126) 08/01/17 07:51 Total Protein 7.1 g/dL (5.8-8.3) 08/01/17 07:51 Albumin 3.4 g/dL (3.0-4.8) 08/01/17 07:51 Globulin 3.7 gm/dL 08/01/17 07:51 Albumin/Globulin Ratio 0.9 (1.1-1.8) L 08/01/17 07:51 Procalcitonin 0.37 NG/ML (0.19-0.49) 07/29/17 08:20 Venous Blood Potassium 3.9 mmol/L (3.6-5.2) 07/29/17 08:20 Urine Color Yellow (YELLOW) 07/29/17 13:03 Urine Appearance Sl cloudy (CLEAR) 07/29/17 13:03 Urine pH 6.0 (4.7-8.0) 07/29/17 13:03 Ur Specific [place] 1.025 (1.005-1.035) 07/29/17 13:03 Urine Protein 30 mg/dL (<30 mg/dL) H 07/29/17 13:03 Urine Glucose (UA) Negative mg/dL (NEGATIVE) 07/29/17 13:03 Urine Ketones 15 mg/dL (NEGATIVE) H 07/29/17 13:03 Urine Blood Small (NEGATIVE) H 07/29/17 13:03 Urine Nitrate Positive (NEGATIVE) H 07/29/17 13:03 Urine Bilirubin Negative (NEGATIVE) 07/29/17 13:03 Urine Urobilinogen 0.2 E.U./dL (<1 E.U./dL) 07/29/17 13:03 Ur Leukocyte Esterase Small Kristina/uL (NEGATIVE) H 07/29/17 13:03 Urine RBC 1 - 3 /hpf (0-2) 07/29/17 13:03 Urine WBC 15 - 20 /hpf (0-6) 07/29/17 13:03 Urine Bacteria Few (NEG) 07/29/17 13:03 Ur L.pneumophila Ag Negative (NEGATIVE) 07/29/17 13:03 - Hospital Course Hospital Course: This is a 72 year old male with a past medical history of COPD, legally blind, pulmonary hypertension, CHF, Diabetes, hypertension, developmental delay(per niece), GERD, CAD, left lung mass and psoriasis who comes into the emergency department complaining of fevers and chills for one day. The patient had in conjunction two days of productive cough and generalized weakness. Patient also reported at this time of having some increase in his urinary frequency and poor stream for one day. The patient most recent ECHO was done on 02/23 that showed and ejection fraction of 54 percent, grade 1 relaxation pattern. The patient had a chest x ray done that showed persistent interstitial lung disease and/or diffuse interstitial pulmonary edema that was chronic appearing. The patient was given Vancomycin, iv fluids, Duonebs, Maxipime, and Tylenol in the E.D. The patient was admitted due with SIRSx2. The patient was seen by Pulmonary and Infectious disease while admitted. Patient steroids were tapered down after breathing and sat's came up. The patient was seen and examined today and clinically looks better today. The patient remains and afebrile and his white count is trending down. The patient was discharged home with steroid taper and Augmentin for four days. The patient was also advised to see his PMD within one week of discharge. Discharge Exam - Head Exam Head Exam: ATRAUMATIC, NORMOCEPHALIC Discharge Plan - Discharge Medications Prescriptions: Amoxicillin/Clavulanate [Augmentin 875 MG-125 MG] 1 tab PO BID #8 tab predniSONE [predniSONE Tab] 30 mg PO DAILY #2 tab predniSONE [predniSONE Tab] 40 mg PO DAILY #2 tab - Follow Up Plan Condition: FAIR Disposition: HOME/ ROUTINE Instructions: Prednisone (By mouth), Heart Healthy Diet (GEN), Using Oxygen at Home (GEN), Cholesterol and Your Health (GEN), Meal Planning with Diabetes Exchanges (GEN), Pneumonia (GEN) Additional Instructions: Follow up with your physician (Dr. Ambrocio) within 1 week Take Augmentin as prescribed for 5 days Take prednisone 40mg for two days after discharge then 30mg for two days. Then resume your home 10mg prednisone daily. Return to ED if your symptoms return or exacerbate. Referrals: Jose C Ambrocio MD [Primary Care Provider] - <Taz PAIZ,Cherrie - Last Filed: 08/02/17 11:59> Provider - Provider Date of Admission: 07/29/17 09:55 Attending physician: Cherrie Mcghee MD Primary care physician: Jose C Ambrocio MD Hospital Course - Lab Results Lab Results: Micro Results 07/29/17 15:18 Urine,Clean Catch Urine Culture - Final No Growth (<1,000 CFU/ML) Most Recent Lab Values WBC 13.9 10^3/ul (4.5-11.0) H 08/01/17 07:51 RBC 4.62 10^6/uL (3.5-6.1) 08/01/17 07:51 Hgb 11.0 g/dL (14.0-18.0) L 08/01/17 07:51 Hct 38.6 % (42.0-52.0) L 08/01/17 07:51 MCV 83.5 fl (80.0-105.0) 08/01/17 07:51 MCH 23.8 pg (25.0-35.0) L 08/01/17 07:51 MCHC 28.5 g/dl (31.0-37.0) L 08/01/17 07:51 RDW 16.8 % (11.5-14.5) H 08/01/17 07:51 Plt Count 239 10^3/uL (120.0-450.0) 08/01/17 07:51 MPV 10.4 fl (7.0-11.0) 08/01/17 07:51 Gran % 79.5 % (50.0-68.0) H 08/01/17 07:51 Lymph % (Auto) 13.1 % (22.0-35.0) L 08/01/17 07:51 [place] % (Auto) 6.6 % (1.0-6.0) H 08/01/17 07:51 Eos % (Auto) 0.7 % (1.5-5.0) L 08/01/17 07:51 Baso % (Auto) 0.1 % (0.0-3.0) 08/01/17 07:51 Gran # 11.04 (1.4-6.5) H 08/01/17 07:51 Lymph # 1.8 (1.2-3.4) 08/01/17 07:51 [place] # 0.9 (0.1-0.6) H 08/01/17 07:51 Eos # 0.1 (0.0-0.7) 08/01/17 07:51 Baso # 0.02 K/mm3 (0.0-2.0) 08/01/17 07:51 PT 11.7 Seconds (9.9-11.8) 07/29/17 08:20 INR 1.08 (0.93-1.08) 07/29/17 08:20 APTT 28.2 Seconds (23.7-30.8) 07/29/17 08:20 pO2 51 mm/Hg (30-55) 07/29/17 08:20 VBG pH 7.38 (7.32-7.43) 07/29/17 08:20 VBG pCO2 76.0 (40-60) H* 07/29/17 08:20 VBG HCO3 45.0 mmol/l (21-28) H 07/29/17 08:20 VBG Total CO2 47.3 mmol.L (22-28) H 07/29/17 08:20 VBG O2 Sat (Calc) 88.5 % (40-65) H 07/29/17 08:20 VBG Base Excess 15.9 mmol/L (0.0-2.0) H 07/29/17 08:20 VBG Potassium 3.9 mmol/L (3.6-5.2) 07/29/17 08:20 Sodium 138.0 mmol/L (132-148) 07/29/17 08:20 Chloride 98.0 mmol/L (98-107) 07/29/17 08:20 Glucose 157 mg/dl (75-110) H 07/29/17 08:20 Lactate 0.8 mmol/L (0.7-2.1) 07/29/17 08:20 FiO2 21.0 % 07/29/17 08:20 Sodium 141 mmol/L (132-148) 08/01/17 07:51 Potassium 3.4 mmol/L (3.6-5.0) L 08/01/17 07:51 Chloride 92 mmol/L (95-110) L 08/01/17 07:51 Carbon Dioxide 41 mmol/L (21-33) H 08/01/17 07:51 Anion Gap 11 (10-20) 08/01/17 07:51 BUN 17 mg/dL (7-21) 08/01/17 07:51 Creatinine 0.9 mg/dL (0.5-1.4) 08/01/17 07:51 Est GFR ( Amer) > 60 08/01/17 07:51 Est GFR (Non-Af Amer) > 60 08/01/17 07:51 POC Glucose (mg/dL) 176 mg/dL (65-110) H 08/01/17 12:06 Random Glucose 128 mg/dL (70-110) H 08/01/17 07:51 Calcium 8.6 mg/dL (8.4-10.5) 08/01/17 07:51 Phosphorus 3.2 mg/dL (2.5-4.5) 07/29/17 08:20 Magnesium 1.7 mg/dL (1.7-2.2) 07/29/17 08:20 Total Bilirubin 0.4 mg/dL (0.2-1.3) 08/01/17 07:51 AST 20 U/L (17-59) 08/01/17 07:51 ALT 27 U/L (7-56) 08/01/17 07:51 Alkaline Phosphatase 79 U/L (38-126) 08/01/17 07:51 Total Protein 7.1 g/dL (5.8-8.3) 08/01/17 07:51 Albumin 3.4 g/dL (3.0-4.8) 08/01/17 07:51 Globulin 3.7 gm/dL 08/01/17 07:51 Albumin/Globulin Ratio 0.9 (1.1-1.8) L 08/01/17 07:51 Procalcitonin 0.37 NG/ML (0.19-0.49) 07/29/17 08:20 Venous Blood Potassium 3.9 mmol/L (3.6-5.2) 07/29/17 08:20 Urine Color Yellow (YELLOW) 07/29/17 13:03 Urine Appearance Sl cloudy (CLEAR) 07/29/17 13:03 Urine pH 6.0 (4.7-8.0) 07/29/17 13:03 Ur Specific [place] 1.025 (1.005-1.035) 07/29/17 13:03 Urine Protein 30 mg/dL (<30 mg/dL) H 07/29/17 13:03 Urine Glucose (UA) Negative mg/dL (NEGATIVE) 07/29/17 13:03 Urine Ketones 15 mg/dL (NEGATIVE) H 07/29/17 13:03 Urine Blood Small (NEGATIVE) H 07/29/17 13:03 Urine Nitrate Positive (NEGATIVE) H 07/29/17 13:03 Urine Bilirubin Negative (NEGATIVE) 07/29/17 13:03 Urine Urobilinogen 0.2 E.U./dL (<1 E.U./dL) 07/29/17 13:03 Ur Leukocyte Esterase Small Kristina/uL (NEGATIVE) H 07/29/17 13:03 Urine RBC 1 - 3 /hpf (0-2) 07/29/17 13:03 Urine WBC 15 - 20 /hpf (0-6) 07/29/17 13:03 Urine Bacteria Few (NEG) 07/29/17 13:03 Ur L.pneumophila Ag Negative (NEGATIVE) 07/29/17 13:03 Attending/Attestation - Attestation I have personally seen and examined this patient.: Yes I have fully participated in the care of the patient.: Yes I have reviewed all pertinent clinical information, including history, physical exam and plan: Yes Notes (Text): 08/02/17 11:58 Patient was seen and examined with medical services assistant. 71 year old male with pmh as severe COPD (on 4L of O2 at home), pulmonary hypertension, obstructive sleep apnea, psoriasis, HTN, NDDM and CAD (s/p stents ) ,CHF with diastolic dysfunction EF 54% on last Echo 02/23, legally blind was admitted with cough/worsening dyspnea and fever.Patient is treated for HCAP Pneumonia, mild acute on chronic CHF exacerbation and copd exacerbation. Patient is feeling better, cultures are negative so far.Procalcitonin level is normal.He is feeling close to his base line.He is at base line hypoxia.He will be discharged home on oral Augmentin and tapering dose of prednisone. Patient medical record revealed CT chest 2014 that showed left upper lung mass , discuss with patient, he will follow with his Communication Spec for any work regarding lung mass. Prognosis is guarded. Management plan was discussed in detail with patient.Education was provided
[2017-08-01 12:04] VITALS: BP 115/73; PULSE 66; RESP 18; TEMP 99
--- NOTE | 2017-08-01 17:28 | CP.PCM.PN ---
Subjective - Date & Time of Evaluation Date of Evaluation: 08/01/17 Time of Evaluation: 12:00 - Subjective Subjective: Infectious Disease Follow Up: August 01, 2017 72 yo male with fever up to 100.9 F, lethargy, and respiratory distress. The patient is arousable but needed BiPAP to maintain oxygenation. He is lying in bed. Extensive pulmonary disease history including COPD and emphysema. Today, the patient has been afebrile. He is awake and alert. He is more comfortable today. Cultures negative at 24 hours. He is making no complains at this time and is back at his baseline level. For discharge today. Objective - Vital Signs/Intake and Output Vital Signs (last 24 hours): Temp Pulse Resp BP Pulse Ox 99 F 66 18 115/73 97 08/01/17 12:00 08/01/17 12:00 08/01/17 12:00 08/01/17 12:00 08/01/17 06:00 Intake and Output: 08/01/17 08/01/17 06:59 18:59 Intake Total 450 960 Output Total 400 1500 Balance 50 -540 - Labs Labs: 08/01/17 07:51 08/01/17 07:51 PT 11.7 Seconds (9.9-11.8) 07/29/17 08:20 INR 1.08 (0.93-1.08) 07/29/17 08:20 APTT 28.2 Seconds (23.7-30.8) 07/29/17 08:20 - Constitutional Appears: Non-toxic, No Acute Distress, Chronically Ill - Head Exam Head Exam: ATRAUMATIC, NORMOCEPHALIC Additional comments: multiple skin tags. - Eye Exam Additional comments: puffy eyelids, crusting of the eyelashes bilaterally. legally blind. - ENT Exam ENT Exam: Mucous Membranes Moist, Normal External Ear Exam, TM's Normal Bilaterally - Neck Exam Neck Exam: Full ROM, Normal Inspection - Respiratory Exam Respiratory Exam: Decreased Breath Sounds, NORMAL BREATHING PATTERN. absent: Rales, Rhonchi, Wheezes Additional comments: decreased breath sounds right worse than left. - Cardiovascular Exam Cardiovascular Exam: REGULAR RHYTHM, RRR, +S1, +S2 - GI/Abdominal Exam GI & Abdominal Exam: Soft, Normal Bowel Sounds. absent: Distended, Tenderness - Extremities Exam Extremities Exam: Pedal Edema - Neurological Exam Neurological Exam: Alert, Awake, CN II-XII Intact Additional comments: AAO x 2-3 - Psychiatric Exam Psychiatric exam: Normal Affect, Normal Mood - Skin Additional comments: poor skin turgor, multiple skin tags. Assessment and Plan - Assessment and Plan (Free Text) Assessment: 72 yo male with mechanical fall. Leukocytosis likely secondary to fall. No fevers. Patient with extended history of CAD and CHF. Leukocytosis up to 20. Check sams cultures. On Cefepime for antibiotics as this time. Supportive care. Hypercarbic respiratory failure on BiPap. Supportive care. Patient doing better today. He is more awake and alert. Cultures negative at 24 hours. Chronic medical issues including CHF, COPD, CAD , and pulmonary hypertension. WBC at 13.9 from 18.1 and the patient usually has normal WBC values. Final culture results show no growth. On Nasal Cannula only now. Significantly improved. Thank you for allowing me to participate in the care of the patient, we will follow with you.
== END 2017-08-01 14:51 | disposition home or self-care (01) | DRG 871 ==
LOC: ED 06:37 → ERH 09:55 → 2RSO 16:13
PROVIDERS: ADMIT Internal Medicine; ATTEND Internal Medicine
PROC: 5A09357 Assistance with Respiratory Ventilation, Less than 24 Consecutive Hours, Continuous Positive Airway Pressure (ICD-10-PCS; principal; 2017-07-29)
DX: A41.9 Sepsis, unspecified organism (principal); J18.9 Pneumonia, unspecified organism; J96.92 Respiratory failure, unspecified with hypercapnia; I11.0 Hypertensive heart disease with heart failure; J84.9 Interstitial pulmonary disease, unspecified; I27.2 Other secondary pulmonary hypertension; I50.32 Chronic diastolic (congestive) heart failure; Z99.81 Dependence on supplemental oxygen; J44.0 Chronic obstructive pulmonary disease with (acute) lower respiratory infection; J44.1 Chronic obstructive pulmonary disease with (acute) exacerbation; W18.30XA Fall on same level, unspecified, initial encounter; I48.0 Paroxysmal atrial fibrillation; E11.9 Type 2 diabetes mellitus without complications; G47.33 Obstructive sleep apnea (adult) (pediatric); H54.8 Legal blindness, as defined in USA; I25.10 Atherosclerotic heart disease of native coronary artery without angina pectoris; J06.9 Acute upper respiratory infection, unspecified; K21.9 Gastro-esophageal reflux disease without esophagitis; K44.9 Diaphragmatic hernia without obstruction or gangrene; Y95 Nosocomial condition; Z79.52 Long term (current) use of systemic steroids; Z83.3 Family history of diabetes mellitus; Z87.891 Personal history of nicotine dependence; Z90.49 Acquired absence of other specified parts of digestive tract; Z95.5 Presence of coronary angioplasty implant and graft; L40.9 Psoriasis, unspecified; R40.2412 Glasgow coma scale score 13-15, at arrival to emergency department; R35.0 Frequency of micturition; R39.15 Urgency of urination

== ENCOUNTER 2017-08-19 21:06 | Inpatient (IN) | payer MEDICARE, OTHER ==
[2017-08-19 21:11] VITALS: BMI 27.3
--- NOTE | 2017-08-19 21:19 | ED PDOC ---
Arrival/HPI - General Chief Complaint: Shortness Of Breath Time Seen by Provider: 08/19/17 21:07 Historian: Patient, Family - History of Present Illness Narrative History of Present Illness (Text): 08/19/17 21:19 Tremaine Salgado is a 72 year old male, whose past medical history includes COPD, CHF, hypertension, diabetes, blindness, GERD, CAD, left lung mass, and psoriasis , who presents to the Emergency department brought in by EMS for shortness of breath. Relative states patient has been experiencing shortness of breath, chills, and fever, at home tonight. Patient had max temperature of 102.6 at home and was given Tylenol. Relative states patient also complaining of left arm pain and left-sided back pain. Patient denies any nausea, vomiting, diarrhea , urinary symptoms, neck pain, headache, dizziness, or any other complaints. PMD: Dr. Mercy Ambrocio Time/Duration: Other (tonight) Symptom Onset: Gradual Symptom Course: Unchanged Context: Home Past Medical History - Provider Review Nursing Documentation Reviewed: Yes - Infectious Disease Hx of Infectious Diseases: None - Tetanus Immunization Tetanus Immunization: Up to Date - Reproductive Currently : No Currently Lactating: No - Cardiac Hx Cardiac Disorders: Yes Hx Congestive Heart Failure: Yes Hx Hypertension: Yes - Pulmonary Hx Chronic Obstructive Pulmonary Disease (COPD): Yes (end stage) Hx Sleep Apnea: Yes - Neurological Hx Neurological Disorder: Yes (Blind since the age of 1.) - HEENT Hx Blind: Yes (since age 1) - Renal Hx Renal Failure: Yes - Endocrine/Metabolic Hx Diabetes Mellitus Type 2: Yes (niddm) - Hematological/Oncological Hx Blood Disorders: Yes Hx Cancer: Yes (lung mass) - Integumentary Hx Dermatological Disorder: Yes (Reddened, flush skin, dry and taut. Thickened, whitish-yellowish skin patch) Hx Psoriasis: Yes Other/Comment: Generalized body surface area, including extremities and torso with reddened, flushed skin with dry, whitish-yellow, thick, scaly, flaky patches. - Musculoskeletal/Rheumatological Hx Falls: Yes (past) - Gastrointestinal Hx Gastrointestinal Disorders: Yes (reflux) - Genitourinary/Gynecological Hx Genitourinary Disorders: Yes Other/Comment: urinary urgency/frequency - Psychiatric Hx Psychophysiologic Disorder: Yes Hx Substance Use: No (NONE NOTED) - Surgical History Hx Appendectomy: Yes - Anesthesia Hx Anesthesia Reactions: No Hx Malignant Hyperthermia: No - Suicidal Assessment Feels Threatened In Home Enviroment: No Family/Social History - Physician Review Nursing Documentation Reviewed: Yes Family/Social History: Unknown Family HX Smoking Status: Former Smoker Hx Alcohol Use: Yes Hx Substance Use: No (NONE NOTED) Hx Substance Use Treatment: No Allergies/Home Meds Allergies/Adverse Reactions: Allergies No Known Allergies Allergy (Verified 07/29/17 06:53) Home Medications: Home Meds Medication Instructions Recorded Confirmed Bosentan [Tracleer] 125 mg PO BID 08/19/17 08/19/17 Cyanocobalamin (Vitamin B-12) 500 mcg PO DAILY 08/19/17 08/19/17 [Vitamin B-12] Esomeprazole Magnesium [Nexium] 40 mg PO DAILY 08/19/17 08/19/17 Furosemide [Lasix] 40 mg PO BID 08/19/17 08/19/17 Prednisone 10 mg PO DAILY 08/19/17 08/19/17 Sitagliptin Phos/Metformin HCl 1 each PO BID 08/19/17 08/19/17 [Janumet 50-500 mg Tablet] [id number] CD [Cardizem CD] 300 mg PO DAILY 08/19/17 08/19/17 Review of Systems - Physician Review All systems were reviewed & negative as marked: Yes - Review of Systems Constitutional: Fevers, Other (+chills) Eyes: Normal ENT: Normal Respiratory: SOB. absent: Cough Gastrointestinal: Normal. absent: Abdominal Pain Genitourinary Male: Normal Musculoskeletal: Back Pain, Other (+left arm pain) Skin: Normal. absent: Rash Neurological: Normal. absent: Headache, Dizziness Endocrine: Normal Hemo/Lymphatic: Normal Psychiatric: Normal Physical Exam Vital Signs Reviewed: Yes Vital Signs Temp Pulse Resp BP Pulse Ox 08/19/17 23:30 97.7 F 84 24 106/45 L 96 08/19/17 22:41 85 20 139/59 L 99 08/19/17 21:56 98 H 26 H 95 08/19/17 21:25 20 08/19/17 21:18 100.6 F H 64 30 H 134/103 H 98 Temperature: Febrile Blood Pressure: Normal Pulse: Regular Respiratory Rate: Normal Appearance: Positive for: Well-Appearing Pain Distress: None Mental Status: Positive for: Alert and Oriented X 3 - Systems Exam Head: Present: Atraumatic, Normocephalic Pupils: Present: PERRL Extroacular Muscles: Present: EOMI Conjunctiva: Present: Normal Mouth: Present: Moist Mucous Membranes Neck: Present: Normal Range of Motion Respiratory/Chest: Present: Wheezes. No: Respiratory Distress, Accessory Muscle Use Cardiovascular: Present: Regular Rate and Rhythm, Normal S1, S2. No: Murmurs Abdomen: Present: Normal Bowel Sounds. No: Tenderness, Distention, Peritoneal Signs Back: Present: Normal Inspection Upper Extremity: Present: Normal Inspection. No: Cyanosis, Edema Lower Extremity: Present: Normal Inspection. No: Edema Neurological: Present: GCS=15, CN II-XII Intact, Speech Normal Skin: Present: Warm, Dry, Normal Color. No: Rashes Psychiatric: Present: Alert, Oriented x 3, Normal Insight, Normal Concentration Medical Decision Making ED Course and Treatment: 08/19/17 21:19 Impression: 72 year old male complaining of shortness of breath, fever, and chills tonight. Differential Diagnosis included but are not limited to: COPD vs. pneumonia vs. CHF vs. sepsis vs. lung mass Plan: -- EKG -- Chest X-ray -- Labs, cardiac enzymes, BNP, ABG, blood cultures -- Urinalysis -- Duoneb -- Solu-medrol -- Reassess and disposition Prior Visits: Notes and results from previous visits were reviewed. On 07/29/2017, pt was seen in the Emergency department for productive cough with sputum, fever, chills, and generalized weakness. Pt was admitted to the hospital for further evaluation. Progress Notes: Reviewed EKG, a fib at 104 bpm. Rapid ventricular response. Non-specific ST/T changes. 08/19/17 21:51 Pt O2 saturation in 80s on NC. Pt placed on BiPAP. Reviewed radiology, Chest X-ray shows left-sided pneumonia, left lung mass. 08/19/17 22:16 Discussed with patient's power of golf club head inspector and adjuster who is present at bedside, states patient is DNR/DNI. 08/19/17 22:50 Case discussed with medical equipment technician consumer loan processor, who is aware and agrees with plan. House physician paged. 08/19/17 22:[address] Lezama, who is aware and agrees with plan. Accepts pt in to hospitalist service. Pt will be admitted to Telemetry for pneumonia and COPD. - Lab Interpretations Microbiology Results: Microbiology Results 08/19/17 22:40 Urine,Clean Catch Urine Culture - Final Escherichia Coli 08/19/17 22:00 Blood-Venous Blood Culture - Preliminary NO GROWTH AFTER 48 HOURS 08/19/17 21:30 Blood-Venous Blood Culture - Preliminary NO GROWTH AFTER 48 HOURS Lab Results: 08/19/17 21:30 08/19/17 21:30 Lab Results 08/19/17 22:40: Urine Color Yellow, Urine Appearance Sl cloudy, Urine pH 6.0, Ur Specific [place] 1.020, Urine Protein 100 H, Urine Glucose (UA) Negative, Urine Ketones Trace H, Urine Blood Moderate H, Urine Nitrate Negative, Urine Bilirubin Negative, Urine Urobilinogen 0.2, Ur Leukocyte Esterase Moderate H, Urine RBC 2 - 5, Urine WBC 25 - 30, Ur Epithelial Cells 1 - 3, Urine Bacteria Mod 08/19/17 21:30: Procalcitonin 0.28 08/19/17 21:30: Sodium 139, Potassium 4.1, Chloride 93 L, Carbon Dioxide 40 H, Anion Gap 10, BUN 23 H, Creatinine 1.5, Est GFR ( Amer) 55, Est GFR (Non- Af Amer) 46, Random Glucose 125 H, Calcium 8.8, Total Bilirubin 0.4, AST 14 L D , ALT 17, Alkaline Phosphatase 117, Lactate Dehydrogenase 326 L, Total Creatine Kinase < 20 L, Troponin I < 0.01, NT-Pro-B Natriuret Pep 496 H, Total Protein 6.6, Albumin 3.4, Globulin 3.2, Albumin/Globulin Ratio 1.1 08/19/17 21:30: PT 11.2, INR 1.04, APTT 27.5 08/19/17 21:30: WBC 11.8 H, RBC 4.34, Hgb 10.7 L, Hct 37.1 L, MCV 85.5, MCH 24.7 L, MCHC 28.8 L, RDW 16.7 H, Plt Count 177, MPV 10.2, Gran % 83.9 H, Lymph % (Auto) 7.0 L, Fleming % (Auto) 8.3 H, Eos % (Auto) 0.6 L, Baso % (Auto) 0.2, Gran # 9.90 H, Lymph # 0.8 L, Fleming # 1.0 H, Eos # 0.1, Baso # 0.02 I have reviewed the lab results: Yes - RAD Interpretation Radiology Orders: 08/19/17 21:12 CHEST PORTABLE [RAD] Stat Reporting Process Consultant: ED Physician - EKG Interpretation Interpreted by ED Physician: Yes Type: 12 lead EKG - Medication Orders Current Medication Orders: Acetaminophen (Tylenol 325mg Tab) 650 mg PO Q6H PRN PRN Reason: Pain, moderate (4-7) Last Admin: 08/22/17 14:21 Dose: 650 mg MAR Pain/Vitals Document 08/22/17 14:21 DH (Rec: 08/22/17 14:21 [place] [id number]) Pain Scale Used Pain Scale Used Numeric Location Pain Location Body Head Of Human Resources Description Intermittent Intensity 5 Scale Used Numeric Re-Assess: MAR Pain/Vitals Document 08/22/17 15:21 DH (Rec: 08/22/17 17:49 [place] [id number]) Pain Reassessment Is This A Pain ReAssessment? Yes Sleep Is patient sleeping during reassessment? Yes Presence of Pain Presence of Pain No Albuterol/Ipratropium (Duoneb 3 Mg/0.5 Mg (3 Ml) Ud) 3 ml IH Q2H PRN PRN Reason: Shortness of Breath Last Admin: 08/22/17 00:19 Dose: 3 ml Albuterol/Ipratropium (Duoneb 3 Mg/0.5 Mg (3 Ml) Ud) 3 ml IH [id number] [facility] Last Admin: 08/22/17 13:48 Dose: 3 ml Cyanocobalamin (Vitamin B12 1000 Mcg Tab) 500 mcg PO DAILY [facility] Last Admin: 08/22/17 10:50 Dose: 500 mcg Diltiazem HCl (Cardizem Cd) 300 mg PO DAILY [facility] Last Admin: 08/22/17 10:48 Dose: 300 mg MAR Pulse and Blood Pressure Document 08/22/17 10:48 DH (Rec: 08/22/17 10:49 [place] [id number]) Pulse Pulse Rate (60-90) 92 Blood Pressure Blood Pressure (100/60-150/90) 123/63 Doxycycline Hyclate (Doryx) 100 mg PO Q12 [place] PRN Reason: Protocol Stop: 10/21/17 22:01 Last Admin: 08/22/17 10:50 Dose: 100 mg Furosemide (Lasix) 40 mg PO BID [facility] Last Admin: 08/22/17 18:38 Dose: 40 mg MAR Blood Pressure Document 08/22/17 18:38 DH (Rec: 08/22/17 18:38 [place] [id number]) Blood Pressure Blood Pressure (100/60-150/90) 138/72 Home Med (Home Med) 1 unit PO BID [facility] Last Admin: 08/22/17 18:38 Dose: 1 unit Meropenem 1g/NS 100mL IVPB (Meropenem 1g/Ns 100ml Ivpb) 1 gm in 100 mls @ 100 mls/hr IVPB Q12 [facility] PRN Reason: Protocol Stop: 08/29/17 13:48 Last Admin: 08/22/17 10:47 Dose: 100 mls/hr eMAR Start Stop Document 08/22/17 10:47 DH (Rec: 08/22/17 10:48 [place] [id number]) Intravenous Solution Start Date 08/22/17 Start Time 10:47 End Date 08/22/17 End time 12:47 Total Infusion Time 120 Insulin Human Lispro (Humalog Low) 0 units SC ACHS [facility] PRN Reason: Protocol Last Admin: 08/22/17 17:48 Dose: 1 units Comments: given with meal patient sleeping [facility] Blood Glucose Document 08/22/17 17:48 DH (Rec: 08/22/17 17:49 [place] [id number]) Blood Glucose Finger Stick Blood Glucose (70-120) 285 Subcutaneous Administrations Document 08/22/17 17:48 DH (Rec: 08/22/17 17:49 [place] [id number]) Charges for Administration # of Subcutaneous Administrations 1 Methylprednisolone (Solu-Medrol) 20 mg IV Q12 [facility] Pantoprazole Sodium (Protonix Inj) 40 mg IVP DAILY [facility] Last Admin: 08/22/17 10:50 Dose: 40 mg IVP Administration Document 08/22/17 10:50 DH (Rec: 08/22/17 10:50 [place] [id number]) Charges for Administration # of IVP Administrations 1 Discontinued Medications Albuterol/Ipratropium (Duoneb 3 Mg/0.5 Mg (3 Ml) Ud) 3 ml IH Q15M [facility] Stop: 08/19/17 22:01 Last Admin: 08/19/17 22:39 Dose: 3 ml Vancomycin HCl (Vancomycin 1gm) 1 gm in 250 mls @ 167 mls/hr IVPB STAT STA PRN Reason: Protocol Stop: 08/19/17 23:31 Last Admin: 08/19/17 23:50 Dose: 167 mls/hr eMAR Start Stop Document 08/19/17 23:50 YP (Rec: 08/19/17 23:51 YP [id number]) Intravenous Solution Start Date 08/19/17 Start Time 23:50 End Date 08/20/17 End time 01:20 Total Infusion Time 90 Piperacillin Sod/Tazobactam Sod (Zosyn 3.375 In Ns 100ml) 100 mls @ 200 mls/hr IVPB STAT STA PRN Reason: Protocol Stop: 08/19/17 22:32 Last Admin: 08/19/17 23:20 Dose: 200 mls/hr eMAR Start Stop Document 08/19/17 23:20 YP (Rec: 08/19/17 23:20 YP [id number]) Intravenous Solution Start Date 08/19/17 Start Time 23:20 End Date 08/19/17 End time 23:50 Total Infusion Time 30 Vancomycin HCl (Vancomycin 1gm) 1 gm in 250 mls @ 167 mls/hr IVPB Q12 [place] PRN Reason: Protocol Last Admin: 08/20/17 10:09 Dose: 167 mls/hr eMAR Start Stop Document 08/20/17 10:09 TW (Rec: 08/20/17 10:09 TW [id number]) Intravenous Solution Start Date 08/20/17 Start Time 10:09 End Date 08/20/17 End time 11:39 Total Infusion Time 90 Piperacillin Sod/Tazobactam Sod (Zosyn 3.375 In Ns 100ml) 100 mls @ 200 mls/hr IVPB Q6 [place] PRN Reason: Protocol Stop: 08/20/17 06:29 Last Admin: 08/20/17 06:09 Dose: 200 mls/hr eMAR Start Stop Document 08/20/17 06:09 ST (Rec: 08/20/17 06:09 ST [id number]) Intravenous Solution Start Date 08/20/17 Start Time 06:09 End Date 10/12/17 End time 06:41 Total Infusion Time 32 Methylprednisolone (Solu-Medrol) 125 mg IVP ONCE ONE Stop: 08/19/17 21:30 Last Admin: 08/19/17 21:43 Dose: 125 mg IVP Administration Document 08/19/17 21:43 YP (Rec: 08/19/17 21:43 YP [id number]) Charges for Administration # of IVP Administrations 1 Methylprednisolone (Solu-Medrol) 40 mg IVP Q12 [facility] Last Admin: 08/20/17 21:25 Dose: 40 mg IVP Administration Document 08/20/17 21:25 ST (Rec: 08/20/17 21:25 ST [id number]) Charges for Administration # of IVP Administrations 1 Methylprednisolone (Solu-Medrol) 30 mg IVP Q12 [facility] Last Admin: 08/22/17 11:34 Dose: 30 mg IVP Administration Document 08/22/17 11:34 DH (Rec: 08/22/17 11:34 DH [id number]) Charges for Administration # of IVP Administrations 1 Non-Formulary Medication (Bosentan [Tracleer]) 125 mg PO BID [facility] Last Admin: 08/20/17 10:07 Dose: - Scribe Statement The provider has reviewed the documentation as recorded by the Elizabeth Hammer Provider Scribe Attestation: All medical record entries made by the Scribwilmer were at my direction and personally dictated by me. I have reviewed the chart and agree that the record accurately reflects my personal performance of the history, physical exam, medical decision making, and the department course for this patient. I have also personally directed, reviewed, and agree with the discharge instructions and disposition. Disposition/Present on Arrival - Present on Arrival Any Indicators Present on Arrival: No History of DVT/PE: No History of Uncontrolled Diabetes: Yes Urinary Catheter: No History of Decub. Ulcer: No History Surgical Site Infection Following: None - Disposition Have Diagnosis and Disposition been Completed?: Yes Diagnosis: COPD exacerbation, Pneumonia Disposition: HOSPITALIZED Disposition Time: 22:50 Condition: FAIR
[2017-08-19] MEDS: Albuterol-Ipratrop 3 mg / 0.5 (3 ml) UD IH SCH ×3 (21:43→22:39)
[2017-08-19 21:48] LABS: BASO # 0.02 K/mm3 (0.0-2.0); BASO % 0.2 % (0.0-3.0); EOS # 0.1 (0.0-0.7); EOS % 0.6 % (1.5-5.0); GRAN # 9.9 (1.4-6.5); GRAN % 83.9 % (50.0-68.0); HEMATOCRIT 37.1 % (42.0-52.0); LYMPH # 0.8 (1.2-3.4); MEAN CELL VOLUME 85.5 fl (80.0-105.0); MEAN CORPUSCULAR HEMOGLOBIN 24.7 pg (25.0-35.0); MEAN CORPUSCULAR HGB CONC 28.8 g/dl (31.0-37.0); MEAN PLATELET VOLUME 10.2 fl (7.0-11.0); MONO % 8.3 % (1.0-6.0); RED CELL DISTRIBUTION WIDTH 16.7 % (11.5-14.5); WHITE BLOOD COUNT 11.8 10^3/ul (4.5-11.0)
[2017-08-19] MEDS ORDERED: Vancomycin 1gm in NS 250ml 1 GM/250 ML BAG IVPB STA (22:02)
[2017-08-19] MEDS ORDERED: Piperacillin/Tazobact 3.375 gm 100 ML IVPB STA (22:03)
[2017-08-19 22:07] LABS: INR 1.04 (0.93-1.08); PARTIAL THROMBOPLASTIN TIME 27.5 Seconds (23.7-30.8)
[2017-08-19 22:08] LABS: ALB/GLOB RATIO 1.1 (1.1-1.8); ALKALINE PHOSPHATASE 117 U/L (38-126); ALT/SGPT 17 U/L (7-56); AST/SGOT 14 U/L (17-59); BILIRUBIN,TOTAL 0.4 mg/dL (0.2-1.3); BLOOD UREA NITROGEN 23 mg/dL (7-21); CALCIUM 8.8 mg/dL (8.4-10.5); CARBON DIOXIDE 40 mmol/L (21-33); CHLORIDE 93 mmol/L (98-107); GFR AFRICAN-AMERICAN 55; GLUCOSE,RANDOM 125 mg/dL (70-110); POTASSIUM 4.1 mmol/L (3.6-5.0); SODIUM 139 mmol/L (132-148); TOTAL PROTEIN 6.6 g/dL (5.8-8.3)
[2017-08-19 22:21] LABS: TROPONIN I < 0.01 ng/mL
[2017-08-19 22:56] LABS: URINE BILIRUBIN NEGATIVE (NEGATIVE); URINE BLOOD MODERATE (NEGATIVE); URINE GLUCOSE (UA) NEGATIVE (NEGATIVE); URINE KETONE TRACE mg/dL (NEGATIVE); URINE LEUKOCYTE ESTERASE MODERATE Leu/uL (NEGATIVE); URINE PROTEIN 100 mg/dL (<30 mg/dL); URINE UROBILINOGEN 0.2 E.U./dL (<1 E.U./dL)
[2017-08-19 22:58] LABS: URINE APPEARANCE SL CLOUDY (CLEAR); URINE COLOR YELLOW (YELLOW)
[2017-08-19 23:03] LABS: ARTERIAL BLOOD GAS HCO3 41.5 mmol/L (21-28)
[2017-08-19 23:10] LABS: URINE WBC 25 - 30 /hpf (0-6)
[2017-08-19 23:11] LABS: URINE BACTERIA MOD (NEG)
[2017-08-19 23:17] LABS: ARTERIAL BLOOD GAS PH 7.42 (7.35-7.45)
[2017-08-19] MEDS ORDERED: Albuterol-Ipratrop 3 mg / 0.5 (3 ml) UD IH PRN (23:21)
--- NOTE | 2017-08-19 23:46 | CP.PCM.HP ---
<FAISAL MOORE - Last Filed: 08/19/17 23:38> History of Present Illness - History of Present Illness History of Present Illness: CC: SOB Pt is a 72 yo male with PMH COPD, legally blind, pulmonary HTN, diastolic CHF with preserved EF, DM, HTN, developmental delay, GERD, left lung mass, psoriasis presents to [facility] with shortness of breath since this AM. Pt states that he woke this morning with subjective fevers, dyspnea, and productive cough. Pt reports that dyspnea worsened with exertion. Pt denied any alleviating factors. Symptoms worsened throughout the day, which prompted him to go to the ED. In the ED, pt was given IV steroids, abx, and placed on BIPAP, which improved his symptoms. Pt was able to speak in full sentences without difficulty. Pt denied CP, n/v/d, constipation, abdominal pain, MICHELLE, dizziness, fatigue, dysuria, or recent weight loss. PMH: COPD, legally blind, pulmonary HTN, diastolic CHF with preserved EF, DM, HTN, developmental delay, GERD, left lung mass, psoriasis Surg: Hernia FHx: DM1 (sister) All: NKDA SH: Prior 3 ppd smoker, quit 25 yrs ago; Denied EtOH and illicit drug use Medications: Reviewed as per MAR Present on Admission - Present on Admission Any Indicators Present on Admission: No Review of Systems - Review of Systems Review of Systems: 12 point ROS reviewed and negative other than what is stated in HPI. Past Patient History - Infectious Disease Hx of Infectious Diseases: None - Tetanus Immunizations Tetanus Immunization: Up to Date - Past Social History Smoking Status: Former Smoker - CARDIAC Hx Cardiac Disorders: Yes Hx Congestive Heart Failure: Yes Hx Hypertension: Yes - PULMONARY Hx Chronic Obstructive Pulmonary Disease (COPD): Yes (end stage) Hx Sleep Apnea: Yes - NEUROLOGICAL Hx Neurological Disorder: Yes (Blind since the age of 1.) - HEENT Hx Blind: Yes (since age 1) - RENAL Hx Renal Failure: Yes - ENDOCRINE/METABOLIC Hx Diabetes Mellitus Type 2: Yes (niddm) - HEMATOLOGICAL/ONCOLOGICAL Hx Blood Disorders: Yes Hx Cancer: Yes (lung mass) - INTEGUMENTARY Hx Dermatological Problems: Yes (Reddened, flush skin, dry and taut. Thickened, whitish-yellowish skin patch) Hx Psoriasis: Yes Other/Comment: Generalized body surface area, including extremities and torso with reddened, flushed skin with dry, whitish-yellow, thick, scaly, flaky patches. - MUSCULOSKELETAL/RHEUMATOLOGICAL Hx Falls: Yes (past) - GASTROINTESTINAL Hx Gastrointestinal Disorders: Yes (reflux) - GENITOURINARY/GYNECOLOGICAL Hx Genitourinary Disorders: Yes Other/Comment: urinary urgency/frequency - PSYCHIATRIC Hx Psychophysiologic Disorder: Yes Hx Substance Use: No (NONE NOTED) - SURGICAL HISTORY Hx Appendectomy: Yes - ANESTHESIA Hx Anesthesia Reactions: No Hx Malignant Hyperthermia: No Meds Allergies/Adverse Reactions: Allergies Allergy/AdvReac Type Severity Reaction Status Date / Time No Known Allergies Allergy Verified 07/29/17 06:53 Physical Exam - Constitutional Appears: No Acute Distress - Head Exam Head Exam: ATRAUMATIC, NORMOCEPHALIC - Eye Exam Eye Exam: absent: EOMI (patient blind), PERRL - ENT Exam ENT Exam: Mucous Membranes Moist - Neck Exam Neck exam: Positive for: Full Rom. Negative for: Lymphadenopathy, Tenderness, Thyromegaly - Respiratory Exam Respiratory Exam: Accessory Muscle Use, Rales (R>L lung bases), Wheezes (b/l). absent: Rhonchi - Cardiovascular Exam Cardiovascular Exam: Irregular Rhythm, +S1, +S2. absent: Bradycardia, Tachycardia, Diastolic murmur, Gallop, Rubs, Systolic Murmur - GI/Abdominal Exam GI & Abdominal Exam: Soft. absent: Distended, Firm, Guarding, Organomegaly, Rebound, Tenderness - Extremities Exam Additional comments: scaling plaques b/l LE - Neurological Exam Neurological exam: Alert, Oriented x3 - Psychiatric Exam Psychiatric exam: Normal Affect, Normal Mood - Skin Skin Exam: Dry, Intact, Normal Color, Warm Results - Vital Signs Recent Vital Signs: Last Vital Signs Temp 100.6 F H 08/19/17 21:18 Pulse 85 08/19/17 22:41 Resp 20 08/19/17 22:41 BP 139/59 L 08/19/17 22:41 Pulse Ox 99 08/19/17 22:41 - Labs Result Diagrams: 08/19/17 21:30 08/19/17 21:30 Labs: Laboratory Results - last 24 hr 08/19/17 23:01 pCO2 64 H pO2 59.0 L HCO3 41.5 H* ABG pH 7.42 ABG Total CO2 43.5 H ABG O2 Saturation 94.2 L ABG Base Excess 14.0 H ABG Potassium 3.6 Sodium 141.0 Chloride 103.0 Glucose 137 H Lactate 0.8 FiO2 35.0 Arterial Blood Potassium 3.6 Assessment & Plan - Assessment and Plan (Free Text) Assessment: 72 yo male with PMH of COPD, legally blind, pulmonary HTN, diastolic CHF with preserved EF, DM, HTN, developmental delay, GERD, left lung mass, psoriasis presents with 1 day h/o of dyspnea and subjective fevers. Pt will be admitted for evaluation and treatment for COPD exacerbation and probable pneumonia. Plan: 1. COPD Exacerbation - Pulm consulted - Hypercapnia with metabolic compensation ABG: pH 7.42, pCO2 64, PO2 59, HCO3 41.5 - F/u official CXR read - Duoneb q2h prn and q6h scheduled - Solu-Medrol 40 mg IVP Q12h - BIPAP 2. Possible Pneumonia - CXR shows possible left-sided consolidation and lung mass; f/u official read - Mildly elevated WBC and temp - ID consulted - Cont. Vancomycin and Zosyn - F/u procalcitonin - F/u blood, urine cultures 3. Atrial fibrillation - EKG showed a-fib with RVR on admission - Cont home med: Cardizem 4. DM - ISS - Accuchecks ACHS - Carb consistent diet 5. H/O Pulmonary HTN - Cont home med: Bosentan 6. H/O Diastolic CHF - Echo (02/23) showed EF 54% - Cont home med: Lasix GI/DVT PPx - Protonix - SCDs DNR/DNI Pt discussed in detail with Dr. Lezama. Narciso Moore, PGY1 <Rachel Lezama - Last Filed: 08/20/17 03:54> Results - Vital Signs Recent Vital Signs: Last Vital Signs Temp 97.6 F 08/20/17 01:07 Pulse 75 08/20/17 02:00 Resp 20 08/20/17 01:07 BP 119/65 08/20/17 01:07 Pulse Ox 96 08/19/17 23:30 - Labs Result Diagrams: 08/19/17 21:30 08/19/17 21:30 Labs: Laboratory Results - last 24 hr 08/19/17 23:01 pCO2 64 H pO2 59.0 L HCO3 41.5 H* ABG pH 7.42 ABG Total CO2 43.5 H ABG O2 Saturation 94.2 L ABG Base Excess 14.0 H ABG Potassium 3.6 Sodium 141.0 Chloride 103.0 Glucose 137 H Lactate 0.8 FiO2 35.0 Arterial Blood Potassium 3.6 Attending/Attestation - Attestation I have personally seen and examined this patient.: Yes I have fully participated in the care of the patient.: Yes I have reviewed all pertinent clinical information: Yes Notes (Text): 08/20/17 03:33 Patient was seen when he was in bed # 4 in the ER . Agree with history , physical examination, assessment and plan. Medical record was reviewed. My impressions are:COPD exacerbation, Sepsis, HTN, legally blind, diastolic CHF , pulmonary HTN, GERD, right lung mass, psoriasis , dyspnea, developmental delay, former smoker, history of renal failure, Family history of DM.
[2017-08-20] MEDS: Albuterol-Ipratrop 3 mg / 0.5 (3 ml) UD IH SCH ×4 (02:10→19:30)
[2017-08-20] MEDS: Piperacillin/Tazobact 3.375 gm 100 ML IVPB SCH ×2 (06:09)
[2017-08-20 06:35] LABS: HEMATOCRIT 35.5 % (42.0-52.0); MEAN CELL VOLUME 85.3 fl (80.0-105.0); MEAN CORPUSCULAR HEMOGLOBIN 24.3 pg (25.0-35.0); MEAN CORPUSCULAR HGB CONC 28.5 g/dl (31.0-37.0); MEAN PLATELET VOLUME 10.1 fl (7.0-11.0); RED CELL DISTRIBUTION WIDTH 16.8 % (11.5-14.5); WHITE BLOOD COUNT 11.1 10^3/ul (4.5-11.0)
[2017-08-20 06:59] LABS: ALB/GLOB RATIO 1.1 (1.1-1.8); BILIRUBIN,TOTAL 0.3 mg/dL (0.2-1.3); CALCIUM 8.7 mg/dL (8.4-10.5); MAGNESIUM 1.8 mg/dL (1.7-2.2); PHOSPHOROUS 3.8 mg/dL (2.5-4.5); POTASSIUM 4.4 mmol/L (3.6-5.0); TOTAL PROTEIN 6.2 g/dL (5.8-8.3)
--- NOTE | 2017-08-20 07:58 | RAD ---
HISTORY: sob COMPARISON: 07/29/2017 FINDINGS: LUNGS: Opacity in right apex common nonspecific. Followup advised. Limited examination due to oblique positioning. Linear scar/ atelectasis at left base. PLEURA: Minimal blunting of right costophrenic angle, unchanged. Left costophrenic angle appears clear. CARDIOVASCULAR: Normal. OSSEOUS STRUCTURES: No significant abnormalities. VISUALIZED UPPER ABDOMEN: Normal. OTHER FINDINGS: None. IMPRESSION: Limited examination. Right apical opacity. Followup advised to exclude pneumonia.
--- NOTE | 2017-08-20 09:06 | CON ---
DATE: 08/20/2017 PULMONARY CONSULTATION REASON FOR CONSULTATION: Pneumonia. REFERRING PHYSICIAN: Dr. Fairchild. HISTORY OF PRESENT ILLNESS: History is obtained via extensive discussion with the patient. I have also discussed the case with the niece (power of contracts attorney) at length this morning. I have also reviewed the chart at length. The patient is a 71-year-old chronically ill male, with past medical history significant for end-stage chronic obstructive pulmonary disease, on home oxygen; recurrent bronchitis; multiple episodes of respiratory failure in the past; left upper lobe lung mass (the patient and family refused workup in the past); coronary artery disease; pulmonary hypertension; who presents to [facility] with increasing shortness of breath at rest, dyspnea on exertion, cough, and sputum production for 1 day. There is no history of chest pain, coughing up of blood, or chest pain-made worse with deep respirations. The niece stated that she took the temperature-- of the patient last night at home, and it was 102.6. The niece also states that he had chills at home. No known infectious exposure. No history of night sweats, weight loss or appetite change prior to the above events. No history of leg or calf pains. No history of syncope or diaphoresis. No history of recent travel or trauma. REVIEW OF SYSTEMS: No history of nausea, vomiting or diarrhea. No acute urinary symptoms. No new musculoskeletal complaints. Rest of the review of systems is negative. ALLERGIES: NO KNOWN ALLERGIES. SOCIAL HISTORY: Positive for extensive tobacco usage. No alcohol. FAMILY HISTORY: No inheritable diseases. HOME MEDICATIONS: Include diltiazem, Janumet, prednisone, Lasix, Nexium, Tracleer, and vitamins. PHYSICAL EXAMINATION GENERAL: The patient appears comfortable at rest. He is mildly short of breath, but in no acute distress. VITAL SIGNS: Temperature is 98.0, pulse 60, respirations 20-22, blood pressure 133/77. Oxygen saturation on BiPAP is 96% to 99%. HEENT: Normocephalic, atraumatic. NECK: No JVD. CARDIOVASCULAR: Systolic ejection murmur at the lower left sternal border. No S3 gallop. LUNGS: Crackles at the left lower lobe. Scattered bilateral rhonchi and wheezing are appreciated. EXTREMITIES: Mild edema. No cyanosis, no clubbing. Calves are nontender to palpation. GASTROINTESTINAL: Abdomen is soft, nontender, nondistended. Bowel sounds are positive. SKIN: No acute rash. NEUROLOGIC: Limited at the present time. PERTINENT LABORATORY DATA: Chest x-ray was done in the emergency room and reviewed. It appears that the left upper lobe lung mass has increased in size. There is also a new left lower lobe infiltrate consistent with pneumonia. CBC: White count 11.1, hemoglobin 10.1, hematocrit 35.5, platelets of 186. Arterial blood gas was done on nasal cannula. Results are; pH 7.42, pCO2 of 64, pO2 of 59. Complete metabolic profile: Chloride 94, carbon dioxide 38, BUN 28, glucose 229. Rest of the metabolic profile is within normal limits. IMPRESSION: 1. Left lower lobe pneumonia. 2. Acute bronchitis. 3. End-stage chronic obstructive pulmonary disease, on home oxygen. 4. Left upper lobe lung mass(patient/family refused workup in the past). 5. Pulmonary hypertension. 6. Coronary artery disease. PLAN: Again, I did discuss the case with the patient at length. I also had a long talk with the niece this morning. The patient presents to [facility] with a 1-day history of worsening pulmonary symptoms. In addition, he also had a fever of 102.6 at home. When the niece found the patient to be febrile, she then had the patient transferred to [facility] via emergency medical services. I did review the chest x-ray as above. A new left lower lobe infiltrate is noted. It also appears that the left upper lobe lung mass is enlarging in size. I have stated many times during previous hospitalizations, and reconfirmed with my talk with the niece this morning-- that the patient and niece desire no additional workup of this lung mass (nor do they desire any aggressive procedures to be done). The patient is currently a DNR/DNI status. Pancultures have been ordered, and will be analyzed when feasible. Infectious Disease evaluation with Dr. Quarles has been ordered. On physical exam, the patient is in [id number] bronchospasm. I will continue the current nebulizer treatments and continue with the intravenous steroids for now. The patient appears as sick as I have seen him in the recent past. The niece is well aware of his overall very poor status/prognosis. I will discuss the above with the attending physician this morning. Thank you very much for this pulmonary consultation. Fabricio Edmond MD MTDTad
[2017-08-20] MEDS: Insulin Lispro (humaLOG) LOW Coverage SC SCH ×4 (09:30→22:03)
[2017-08-20] MEDS ORDERED: Vancomycin 1gm in NS 250ml 1 GM/250 ML BAG IVPB SCH (10:00)
[2017-08-20] MEDS ORDERED: BOSENTAN 125 MG PO SCH (10:00)
[2017-08-20] MEDS: MethylPREDNISolone 40 mg Vial IVP SCH ×2 (10:08→21:25)
[2017-08-20] MEDS: diltiaZEM 300 mg/24 Hours CD Cap PO SCH (10:08)
--- NOTE | 2017-08-20 11:13 | CARD ---
APPROVED REPORT EKG Measurement Heart [id number] <Conclusion> Atrial fibrillation with rapid ventricular response Non Specific ST_T Changes.
--- NOTE | 2017-08-20 12:54 | CP.PCM.PN ---
<Vishal Jones - Last Filed: 08/20/17 12:42> Subjective - Date & Time of Evaluation Date of Evaluation: 08/20/17 Time of Evaluation: 10:30 - Subjective Subjective: Subjective: Patient seen and examined at bedside. Resting comfortably in bed. No acute overnight events. Patient states SOB has improved relative to baseline. Offers no new complaints at this time. Denies f/c/cp/abdominal pain/n/v/d/c/urinary sxs . Physical Examination: Constitutional Appears: No Acute Distress - Head Exam Head Exam: ATRAUMATIC, NORMOCEPHALIC - Eye Exam Eye Exam: absent: EOMI (patient blind), PERRL - ENT Exam ENT Exam: Mucous Membranes Moist - Neck Exam Neck exam: Positive for: Full Rom. Negative for: Lymphadenopathy, Tenderness, Thyromegaly - Respiratory Exam Respiratory Exam: Rales, Wheezes, absent: Rhonchi - Cardiovascular Exam Cardiovascular Exam: +S1, +S2. absent: Bradycardia, Tachycardia, Diastolic murmur, Gallop, Rubs, Systolic Murmur - GI/Abdominal Exam GI & Abdominal Exam: Soft. absent: Distended, Firm, Guarding, Organomegaly, Rebound, Tenderness - Extremities Exam Additional comments: scaling plaques b/l LE - Neurological Exam Neurological exam: Alert, Oriented x3 - Psychiatric Exam Psychiatric exam: Normal Affect, Normal Mood - Skin Skin Exam: Dry, Intact, Normal Color, Warm Assessment and Plan: COPD Exacerbation - Pulm consulted- appreciate recs - Hypercapnia with metabolic compensation ABG: pH 7.42, pCO2 64, PO2 59, HCO3 41.5 - CXR read- discussed CT of chest- no need at this time - Duoneb q2h prn and q6h scheduled - Solu-Medrol 40 mg IVP Q12h - BIPAP Pneumonia - CXR shows possible left-sided consolidation and lung mass; f/u official read - Mildly elevated WBC downtrending and fever resolved - ID consulted- antibiotics as per ID - procalcitonin 0.28 - F/u blood, urine cultures UTI - UA reviewed- neg nitrates, moderate leukocyte esterase, moderate urine bacteria, WBC 25-30 - antibiotics as per ID Atrial fibrillation - EKG showed a-fib with RVR on admission - Cont home med: Cardizem DM - ISS - Accuchecks ACHS - Carb consistent diet H/O Pulmonary HTN - Cont home med: Bosentan H/O Diastolic CHF - Echo (02/23) showed EF 54% - Cont home med: Lasix GI/DVT PPx - Protonix - SCDs DNR/DNI Patient seen, case discussed with, and plan approved by attending physician, Dr. Fairchild. Objective - Vital Signs/Intake and Output Vital Signs (last 24 hours): Temp Pulse Resp BP Pulse Ox 98 F 73 20 133/77 96 08/20/17 05:48 08/20/17 10:08 08/20/17 07:58 08/20/17 10:09 08/20/17 05:48 Intake and Output: 08/20/17 08/20/17 06:59 18:59 Intake Total 120 Output Total 75 Balance 45 - Medications Medications: Current Medications Albuterol/Ipratropium (Duoneb 3 Mg/0.5 Mg (3 Ml) Ud) 3 ml IH Q2H PRN PRN Reason: Shortness of Breath Albuterol/Ipratropium (Duoneb 3 Mg/0.5 Mg (3 Ml) Ud) 3 ml IH [id number] [facility] Last Admin: 08/20/17 07:59 Dose: 3 ml Cyanocobalamin (Vitamin B12 1000 Mcg Tab) 500 mcg PO DAILY [facility] Last Admin: 08/20/17 10:08 Dose: 500 mcg Diltiazem HCl (Cardizem Cd) 300 mg PO DAILY [facility] Last Admin: 08/20/17 10:08 Dose: 300 mg Furosemide (Lasix) 40 mg PO BID [facility] Last Admin: 08/20/17 10:09 Dose: 40 mg Vancomycin HCl (Vancomycin 1gm) 1 gm in 250 mls @ 167 mls/hr IVPB Q12 [facility] PRN Reason: Protocol Last Admin: 08/20/17 10:09 Dose: 167 mls/hr Insulin Human Lispro (Humalog Low) 0 units SC ACHS [facility] PRN Reason: Protocol Last Admin: 08/20/17 12:20 Dose: Not Given Methylprednisolone (Solu-Medrol) 40 mg IVP Q12 [facility] Last Admin: 08/20/17 10:08 Dose: 40 mg Non-Formulary Medication (Bosentan [Tracleer]) 125 mg PO BID [facility] Last Admin: 08/20/17 10:07 Dose: Not Given Pantoprazole Sodium (Protonix Inj) 40 mg IVP DAILY [facility] Last Admin: 08/20/17 10:08 Dose: 40 mg - Labs Labs: 08/20/17 06:15 08/20/17 06:15 PT 11.2 Seconds (9.9-11.8) 08/19/17 21:30 INR 1.04 (0.93-1.08) 08/19/17 21:30 APTT 27.5 Seconds (23.7-30.8) 08/19/17 21:30 <Jamie Fairchild B - Last Filed: 08/20/17 18:24> Objective - Vital Signs/Intake and Output Vital Signs (last 24 hours): Temp Pulse Resp BP Pulse Ox 98 F 73 20 133/77 96 08/20/17 05:48 08/20/17 10:08 08/20/17 07:58 08/20/17 10:09 08/20/17 05:48 Intake and Output: 08/20/17 08/20/17 06:59 18:59 Intake Total 120 Output Total 75 Balance 45 - Medications Medications: Current Medications Albuterol/Ipratropium (Duoneb 3 Mg/0.5 Mg (3 Ml) Ud) 3 ml IH Q2H PRN PRN Reason: Shortness of Breath Albuterol/Ipratropium (Duoneb 3 Mg/0.5 Mg (3 Ml) Ud) 3 ml IH [id number] [facility] Last Admin: 08/20/17 07:59 Dose: 3 ml Cyanocobalamin (Vitamin B12 1000 Mcg Tab) 500 mcg PO DAILY [facility] Last Admin: 08/20/17 10:08 Dose: 500 mcg Diltiazem HCl (Cardizem Cd) 300 mg PO DAILY [facility] Last Admin: 08/20/17 10:08 Dose: 300 mg Furosemide (Lasix) 40 mg PO BID [facility] Last Admin: 08/20/17 10:09 Dose: 40 mg Vancomycin HCl (Vancomycin 1gm) 1 gm in 250 mls @ 167 mls/hr IVPB Q12 [facility] PRN Reason: Protocol Last Admin: 08/20/17 10:09 Dose: 167 mls/hr Insulin Human Lispro (Humalog Low) 0 units SC ACHS [facility] PRN Reason: Protocol Last Admin: 08/20/17 12:20 Dose: Not Given Methylprednisolone (Solu-Medrol) 40 mg IVP Q12 [facility] Last Admin: 08/20/17 10:08 Dose: 40 mg Non-Formulary Medication (Bosentan [Tracleer]) 125 mg PO BID [facility] Last Admin: 08/20/17 10:07 Dose: Not Given Pantoprazole Sodium (Protonix Inj) 40 mg IVP DAILY [facility] Last Admin: 08/20/17 10:08 Dose: 40 mg - Labs Labs: 08/20/17 06:15 08/20/17 06:15 PT 11.2 Seconds (9.9-11.8) 08/19/17 21:30 INR 1.04 (0.93-1.08) 08/19/17 21:30 APTT 27.5 Seconds (23.7-30.8) 08/19/17 21:30 Attending/Attestation - Attestation I have personally seen and examined this patient.: Yes I have fully participated in the care of the patient.: Yes I have reviewed all pertinent clinical information, including history, physical exam and plan: Yes Notes (Text): I have seen and examined patient with resident. This is a 71 year old male with past medical history of legal blindness, severe COPD (on 4L of O2 at home), pulmonary hypertension, obstructive sleep apnea, psoriasis, HTN, NIDDM and CAD ( s/p stents) and being legally blind who was brought by patients niece for evaluation of fever, dyspnea, productive cough and generalized weakness and found to have HCAP, COPD exacerbation and UTI. Continue duonebs, solumedrol, IV antibiotics (conrad+doxy). Follow up urine culture and procal. Will follow up on ID recommendations. Continue cardizem, bosentan and lasix. Discussed in detail with the manufacturing production technician. Patient is DNI DNR. Long-term prognosis is poor. Follow up with within 3-[address] Hale within 2-[address] Jamie Fairchild
--- NOTE | 2017-08-20 13:01 | RAD ---
HISTORY: follow up COMPARISON: 08/19/2017 TECHNIQUE: Chest PA and lateral FINDINGS: LUNGS: There is a right apical medial density. An underlying mass cannot be excluded. This could be secondary to vascular tortuosity. CT may be indicated. PLEURA: No significant pleural effusion identified. No pneumothorax apparent. CARDIOVASCULAR: Mild vascular congestion. The heart is normal in size OSSEOUS STRUCTURES: No significant abnormalities. VISUALIZED UPPER ABDOMEN: Normal. OTHER FINDINGS: None. IMPRESSION: There is a right apical medial density. An underlying mass cannot be excluded. This could be secondary to vascular tortuosity. CT may be indicated.
[2017-08-20] MEDS: BOSENTAN 125 MG PO SCH ×2 (18:53→19:02)
[2017-08-20] MEDS: Meropenem 1g/NS 100mL IVPB 1 GM/100 ML PIGGYBACK IVPB SCH (19:02)
[2017-08-21] MEDS: Albuterol-Ipratrop 3 mg / 0.5 (3 ml) UD IH SCH ×4 (01:26→19:34)
--- NOTE | 2017-08-21 03:08 | CON ---
DATE: 08/20/2017 LOCATION: The patient is seen in room #267, bed 2. HISTORY OF PRESENT ILLNESS: A 72-year-old male with chronic obstructive lung disease, congestive heart failure, hypertension, diabetes, blindness, GERD, coronary artery disease, left lung mass, psoriasis, who is admitted to the emergency room with a chief complaint of shortness of breath in 1 to 2 days. The patient stated he had fevers at home. Temperature was upto 102 and chills. He denies any abdominal pain, diarrhea or constipation. No bright red blood per rectum, no melena and no headaches. PAST MEDICAL HISTORY: Significant for chronic obstructive lung disease, congestive heart failure, hypertension, diabetes, blindness, GERD, left lung mass, and psoriasis. PAST SURGICAL HISTORY: Significant for hernia repair, appendectomy, and cholecystectomy. ALLERGIES: THE PATIENT HAS NO KNOWN ALLERGIES. MEDICATIONS AT HOME: Include Cardizem which is diltiazem and metformin, prednisone at 10 mg a day, Lasix and esomeprazole. PHYSICAL EXAMINATION VITAL SIGNS: The patient is in bed with a temperature of 98; T-max was a 100.6; pulse of 73, it was upto 98; respiratory rate of 22, it was upto 30. Blood pressure 130/70. HEENT: Unremarkable. NECK: Supple. LUNGS: Decreased breath sounds. HEART: Normal S1 and S2. ABDOMEN: Soft and nontender. LABORATORY DATA: Reveals the patient's white count of 11,800, hemoglobin of 10, platelets of 177, and coagulation is noted. Chemistries reveal a BUN of 23, creatinine of 1.5. The patient's last creatinine was 0.9 on 07/31/2017, and the patient had a procalcitonin of 0.28 yesterday. Urinalysis reveals 25-30 wbc's, moderate bacteria. The patient had a chest x-ray. Density is described and possibly underlying mass. Dr. Edmond's consultation is reviewed. Dr. Edmond feels the patient has a left lower lobe . Dr. Jones's progress note is reviewed. ASSESSMENT AND PLAN: He is a 72-year-old with chronic obstructive lung disease, congestive heart failure, left lung mass, psoriasis, depression, hypertension, diabetes, blindness and gastroesophageal reflux disease, coronary artery disease with recent hospitalization, who is now admitted with a severe sepsis, fever, tachycardia, dyspnea with a left lower lobe pneumonia with healthcare-associated pneumonia and also a complicated urinary tract infection as a source with acute kidney injury, creatinine changing from 0.9 to 1.5. The patient was given a dose of vancomycin and now started with 1 g q.12. We will discontinue the vancomycin due to the acute kidney injury and review of microbiology from the past reveals the patient has had negative blood cultures. The patient has had few E. coli urinary tract infections, the last one was an ESBL from 10/2016, and we will start the patient on meropenem, discontinue the Zosyn and the vancomycin. We will adjust the meropenem for the renal insufficiency and acute kidney injury. We will also add p.o. doxycycline. We will make further recommendations upon availability. Pending urine culture, blood cultures, sputum cultures. Jurgen Carreon MD
[2017-08-21 05:58] LABS: HEMATOCRIT 34.9 % (42.0-52.0); MEAN CELL VOLUME 82.9 fl (80.0-105.0); MEAN CORPUSCULAR HGB CONC 28.9 g/dl (31.0-37.0); MEAN PLATELET VOLUME 10.1 fl (7.0-11.0); RED CELL DISTRIBUTION WIDTH 16.5 % (11.5-14.5); WHITE BLOOD COUNT 13.7 10^3/ul (4.5-11.0)
[2017-08-21 06:15] LABS: ALB/GLOB RATIO 1.1 (1.1-1.8); ALKALINE PHOSPHATASE 106 U/L (38-126); ALT/SGPT 26 U/L (7-56); AST/SGOT 14 U/L (17-59); BILIRUBIN,TOTAL 0.3 mg/dL (0.2-1.3); BLOOD UREA NITROGEN 30 mg/dL (7-21); CARBON DIOXIDE 39 mmol/L (21-33); CHLORIDE 92 mmol/L (95-110); GFR AFRICAN-AMERICAN > 60; GLUCOSE,RANDOM 197 mg/dL (70-110); POTASSIUM 4.3 mmol/L (3.6-5.0); SODIUM 139 mmol/L (132-148); TOTAL PROTEIN 6.7 g/dL (5.8-8.3)
[2017-08-21 06:32] LABS: CALCIUM 9.1 mg/dL (8.4-10.5)
--- NOTE | 2017-08-21 08:01 | PN ---
SUBJECTIVE: The patient appears much more comfortable this morning. He is not short of breath at rest. PHYSICAL EXAMINATION: Vital Signs: Temperature is 98.2, pulse 68, respirations 20, blood pressure 125/71. Oxygen saturation on nasal cannula is 96%. HEENT: Normocephalic, atraumatic. NECK: No JVD. CARDIOVASCULAR: Systolic ejection murmur at the lower left sternal border. No S3 gallop. LUNGS: Less crackles at the left lower lobe. Less rhonchi. Less wheezing. EXTREMITIES: Mild edema. No cyanosis, no clubbing. Calves are nontender to palpation. GASTROINTESTINAL: Abdomen is soft, nontender and nondistended. Bowel sounds are positive. SKIN: No acute rash. NEUROLOGIC: Limited at the present time. PERTINENT LABORATORY DATA: Repeat chest x-ray was done yesterday and reviewed. There remains a left upper lobe lung mass. There is also a right apical density-seen on previous films. On this last exam, it does appear that there is less left lower lobe infiltrate. IMPRESSION: 1. Left lower lobe pneumonia. 2. Acute bronchitis. 3. End-stage chronic obstructive pulmonary disease, on home oxygen. 4. Left upper lobe lung mass (the patient/family refused workup in the past). 5. Pulmonary hypertension. 6. Coronary artery disease. PLAN: The patient appears much more comfortable this morning. He is not short of breath at rest. His cough is less. He does state to feeling much better overall. On physical exam, his bronchospasm is less. I will continue with the current nebulizer treatments and decrease the intravenous steroids this morning. I would continue with the antibiotic coverage as per Infectious Disease. I did discuss the case with Dr. Carreon at length yesterday. Clinical status of the patient is certainly improved-compared to yesterday. However, again, the future status/prognosis for this patient remains poor. All are aware. I did discuss the case with the niece (power of area intelligence technician) at length yesterday. I let the patient know(again this morning) that the niece can call me at anytime. I have had enumerable discussions with her concerning her uncle (the patient). I will discuss the above with the attending physician this morning. Fabricio Edmond MD [facility] # [id number] [place]
[2017-08-21] MEDS: Insulin Lispro (humaLOG) LOW Coverage SC SCH ×4 (08:43→23:24)
[2017-08-21] MEDS: diltiaZEM 300 mg/24 Hours CD Cap PO SCH (10:22)
[2017-08-21] MEDS: MethylPREDNISolone 40 mg Vial IVP SCH ×2 (10:23→21:37)
[2017-08-21] MEDS: Meropenem 1g/NS 100mL IVPB 1 GM/100 ML PIGGYBACK IVPB SCH ×2 (10:23→21:29)
[2017-08-21] MEDS: BOSENTAN 125 MG PO SCH ×2 (10:26→18:06)
--- NOTE | 2017-08-21 13:26 | CP.PCM.PN ---
<Vishal Jones - Last Filed: 08/21/17 13:20> Subjective - Date & Time of Evaluation Date of Evaluation: 08/21/17 Time of Evaluation: 10:00 - Subjective Subjective: Subjective: Patient seen and examined at bedside. Resting comfortably in chair next to bed. Patient experienced asymptomatic bradycardia overnight which resolved in AM. Patient states SOB has improved significantly relative to baseline. Offers no new complaints at this time. Denies f/c/cp/abdominal pain/n/v/d/c/urinary sxs. Physical Examination: Constitutional Appears: No Acute Distress - Head Exam Head Exam: ATRAUMATIC, NORMOCEPHALIC - Eye Exam Eye Exam: absent: EOMI (patient blind) - ENT Exam ENT Exam: Mucous Membranes Moist - Neck Exam Neck exam: Positive for: Full Rom. Negative for: Lymphadenopathy, Tenderness, Thyromegaly - Respiratory Exam Respiratory Exam: decreased Wheezes diffusely left > right, absent: Rhonchi - Cardiovascular Exam Cardiovascular Exam: +S1, +S2. absent: Bradycardia, Tachycardia, Diastolic murmur, Gallop, Rubs, Systolic Murmur - GI/Abdominal Exam GI & Abdominal Exam: Soft. absent: Distended, Firm, Guarding, Organomegaly, Rebound, Tenderness - Extremities Exam Additional comments: scaling plaques b/l LE - Neurological Exam Neurological exam: Alert, Oriented x3 - Psychiatric Exam Psychiatric exam: Normal Affect, Normal Mood - Skin Skin Exam: Dry, Intact, Normal Color, Warm Assessment and Plan: COPD Exacerbation - Pulm consulted- appreciate recs - CXR read- discussed CT of chest- no need at this time - c/w Duoneb q2h prn and q6h scheduled - c/w Solu-Medrol 40 mg IVP Q12h - c/w BIPAP at night Pneumonia - CXR shows possible left-sided consolidation and lung mass; f/u official read - Mildly elevated WBC likely due to IV steroids - ID consulted- antibiotics as per ID- patient started on doxycycline and meropenem - procalcitonin 0.28 - F/u blood, urine cultures UTI - UA reviewed- neg nitrates, moderate leukocyte esterase, moderate urine bacteria, WBC 25-30 - antibiotics as per ID- patient started on doxycycline and meropenem Atrial fibrillation - EKG showed a-fib with RVR on admission - Cont home med: Cardizem- may need to decrease dosage if HR further decreases DM - ISS - Accuchecks ACHS - Carb consistent diet H/O Pulmonary HTN - off of bosentan, monitor closely H/O Diastolic CHF - Echo (02/23) showed EF 54% - Cont home med: Lasix GI/DVT PPx - Protonix - SCDs DNR/DNI Patient seen, case discussed with, and plan approved by attending physician, Dr. Fairchild. Objective - Vital Signs/Intake and Output Vital Signs (last 24 hours): Temp Pulse Resp BP Pulse Ox 98.3 F 78 18 105/58 L 96 08/21/17 12:00 08/21/17 12:00 08/21/17 12:00 08/21/17 12:00 08/21/17 06:00 - Medications Medications: Current Medications Albuterol/Ipratropium (Duoneb 3 Mg/0.5 Mg (3 Ml) Ud) 3 ml IH Q2H PRN PRN Reason: Shortness of Breath Albuterol/Ipratropium (Duoneb 3 Mg/0.5 Mg (3 Ml) Ud) 3 ml IH [id number] [facility] Last Admin: 08/21/17 13:16 Dose: 3 ml Cyanocobalamin (Vitamin B12 1000 Mcg Tab) 500 mcg PO DAILY [facility] Last Admin: 08/21/17 10:23 Dose: 500 mcg Diltiazem HCl (Cardizem Cd) 300 mg PO DAILY [facility] Last Admin: 08/21/17 10:22 Dose: 300 mg Doxycycline Hyclate (Doryx) 100 mg PO Q12 [facility] PRN Reason: Protocol Stop: 08/29/17 22:01 Last Admin: 08/21/17 10:22 Dose: 100 mg Furosemide (Lasix) 40 mg PO BID [facility] Last Admin: 08/21/17 10:22 Dose: 40 mg Home Med (Home Med) 1 unit PO BID [facility] Last Admin: 08/21/17 10:26 Dose: 1 unit Meropenem 1g/NS 100mL IVPB (Meropenem 1g/Ns 100ml Ivpb) 1 gm in 100 mls @ 100 mls/hr IVPB Q12 [facility] PRN Reason: Protocol Stop: 08/29/17 13:48 Last Admin: 08/21/17 10:23 Dose: 100 mls/hr Insulin Human Lispro (Humalog Low) 0 units SC ACHS [facility] PRN Reason: Protocol Last Admin: 08/21/17 12:45 Dose: Not Given Methylprednisolone (Solu-Medrol) 30 mg IVP Q12 [facility] Last Admin: 08/21/17 10:23 Dose: 30 mg Pantoprazole Sodium (Protonix Inj) 40 mg IVP DAILY [facility] Last Admin: 08/21/17 10:23 Dose: 40 mg - Labs Labs: 08/21/17 05:40 08/21/17 05:40 PT 11.2 Seconds (9.9-11.8) 08/19/17 21:30 INR 1.04 (0.93-1.08) 08/19/17 21:30 APTT 27.5 Seconds (23.7-30.8) 08/19/17 21:30 <Jamie Fairchild - Last Filed: 08/22/17 13:12> Objective - Vital Signs/Intake and Output Vital Signs (last 24 hours): Temp Pulse Resp BP Pulse Ox 97.4 F L 92 H 18 123/63 94 L 08/22/17 06:00 08/22/17 10:48 08/22/17 06:00 08/22/17 10:49 08/22/17 06:00 Intake and Output: 08/22/17 08/22/17 06:59 18:59 Intake Total 120 Output Total 950 Balance -830 - Medications Medications: Current Medications Acetaminophen (Tylenol 325mg Tab) 650 mg PO Q6H PRN PRN Reason: Pain, moderate (4-7) Albuterol/Ipratropium (Duoneb 3 Mg/0.5 Mg (3 Ml) Ud) 3 ml IH Q2H PRN PRN Reason: Shortness of Breath Last Admin: 08/22/17 00:19 Dose: 3 ml Albuterol/Ipratropium (Duoneb 3 Mg/0.5 Mg (3 Ml) Ud) 3 ml IH [id number] [facility] Last Admin: 08/22/17 07:50 Dose: 3 ml Cyanocobalamin (Vitamin B12 1000 Mcg Tab) 500 mcg PO DAILY [facility] Last Admin: 08/22/17 10:50 Dose: 500 mcg Diltiazem HCl (Cardizem Cd) 300 mg PO DAILY [facility] Last Admin: 08/22/17 10:48 Dose: 300 mg Doxycycline Hyclate (Doryx) 100 mg PO Q12 [facility] PRN Reason: Protocol Stop: 08/29/17 22:01 Last Admin: 08/22/17 10:50 Dose: 100 mg Furosemide (Lasix) 40 mg PO BID [facility] Last Admin: 08/22/17 10:49 Dose: 40 mg Home Med (Home Med) 1 unit PO BID [facility] Last Admin: 08/22/17 10:51 Dose: Not Given Meropenem 1g/NS 100mL IVPB (Meropenem 1g/Ns 100ml Ivpb) 1 gm in 100 mls @ 100 mls/hr IVPB Q12 [facility] PRN Reason: Protocol Stop: 08/29/17 13:48 Last Admin: 08/22/17 10:47 Dose: 100 mls/hr Insulin Human Lispro (Humalog Low) 0 units SC ACHS [facility] PRN Reason: Protocol Last Admin: 08/22/17 12:10 Dose: 1 units Methylprednisolone (Solu-Medrol) 20 mg IV Q12 [facility] Pantoprazole Sodium (Protonix Inj) 40 mg IVP DAILY [facility] Last Admin: 08/22/17 10:50 Dose: 40 mg - Labs Labs: 08/22/17 07:30 08/22/17 07:30 PT 11.2 Seconds (9.9-11.8) 08/19/17 21:30 INR 1.04 (0.93-1.08) 08/19/17 21:30 APTT 27.5 Seconds (23.7-30.8) 08/19/17 21:30 Attending/Attestation - Attestation I have personally seen and examined this patient.: Yes I have fully participated in the care of the patient.: Yes I have reviewed all pertinent clinical information, including history, physical exam and plan: Yes Notes (Text): I have seen and examined patient with resident. This is a 71 year old male with past medical history of legal blindness, severe COPD (on 4L of O2 at home), pulmonary hypertension, obstructive sleep apnea, psoriasis, HTN, NIDDM and CAD ( s/p stents) and being legally blind who was brought by patients niece for evaluation of fever, dyspnea, productive cough and generalized weakness and found to have HCAP, COPD exacerbation and UTI. Continue duonebs, solumedrol taper, IV antibiotics (conrad+doxy). Follow up urine culture and procal. Will follow up on ID recommendations. Continue cardizem, bosentan and lasix. Discussed in detail with the die attaching machine tender. Patient is DNI DNR. Long-term prognosis is poor. Upon discharge patient will follow up with and Dr Hale . Dr Jamie Fairchild
--- NOTE | 2017-08-21 15:19 | PN ---
DATE: 08/21/2017 SUBJECTIVE: The patient is in bed in no acute distress. PHYSICAL EXAMINATION: VITAL SIGNS: Temperature is 98, blood pressure is 125/70, and respiratory rate of 18. HEENT: Examination is unremarkable. NECK: Supple. LUNGS: Decreased breath sounds. HEART: Exam has normal S1 and S2. ABDOMEN: Examination is soft and nontender. LABORATORY EXAMINATION: Reveals a white count of 13,000, hemoglobin of 10, and platelets of 209. Coagulation is noted. BUN of 30, creatinine of 1.1, procalcitonin 0.28. Urinalysis is noted. Microbiology reveals the patient's blood cultures have no growth 24 hours. Review of orders reveals the urine cultures are pending. The patient is on p.o. doxycycline and IV meropenem. The patient is also on Solu-Medrol started by Dr. Edmond. Dr. Edmond's progress note from this morning is reviewed and appreciated. ASSESSMENT AND PLAN: A 72-year-old male with past medical history significant for chronic obstructive lung disease, congestive heart failure, left lung mass, psoriasis, depression, hypertension, diabetes, blindness, gastroesophageal reflux disease, coronary artery disease, recent hospitalization. On this admission, admitted with severe sepsis with a left lower lobe healthcare-associated pneumonia, possible Gram-positive cocci, possible Gram-negative andrea, although the procalcitonin is normal, with urine also with a possibility of urinary tract infection of a severe sepsis with acute kidney injury. Currently on meropenem and doxycycline day #2. We will check on the final blood culture results. We will check on the urine culture results and the sputum culture results and continue the meropenem and doxycycline day #2. The patient also on Solu-Medrol. The patient is much improved. Long-term prognosis quite poor. Jurgen Carreon MD
[2017-08-22] MEDS: Albuterol-Ipratrop 3 mg / 0.5 (3 ml) UD IH SCH ×4 (01:16→20:05)
[2017-08-22 08:06] LABS: MEAN CELL VOLUME 82.2 fl (80.0-105.0); MEAN CORPUSCULAR HEMOGLOBIN 24.7 pg (25.0-35.0); MEAN PLATELET VOLUME 10.1 fl (7.0-11.0); RED CELL DISTRIBUTION WIDTH 16.6 % (11.5-14.5); WHITE BLOOD COUNT 14.2 10^3/ul (4.5-11.0)
[2017-08-22] MEDS: Insulin Lispro (humaLOG) LOW Coverage SC SCH ×4 (08:09→21:54)
[2017-08-22 08:16] LABS: ALKALINE PHOSPHATASE 109 U/L (38-126); ALT/SGPT 38 U/L (7-56); AST/SGOT 41 U/L (17-59); BILIRUBIN,TOTAL 0.3 mg/dL (0.2-1.3); BLOOD UREA NITROGEN 28 mg/dL (7-21); CALCIUM 9.2 mg/dL (8.4-10.5); CARBON DIOXIDE 37 mmol/L (21-33); CHLORIDE 93 mmol/L (98-107); GFR AFRICAN-AMERICAN > 60; GLUCOSE,RANDOM 171 mg/dL (70-110); POTASSIUM 4.4 mmol/L (3.6-5.0); SODIUM 138 mmol/L (132-148); TOTAL PROTEIN 6.8 g/dL (5.8-8.3)
[2017-08-22] MEDS: Meropenem 1g/NS 100mL IVPB 1 GM/100 ML PIGGYBACK IVPB SCH ×2 (10:47→21:59)
[2017-08-22] MEDS: diltiaZEM 300 mg/24 Hours CD Cap PO SCH (10:48)
[2017-08-22] MEDS: BOSENTAN 125 MG PO SCH ×3 (10:51→18:38)
--- NOTE | 2017-08-22 11:00 | CP.PCM.PN ---
<Vsihal Jones - Last Filed: 08/22/17 10:56> Subjective - Date & Time of Evaluation Date of Evaluation: 08/22/17 Time of Evaluation: 10:00 - Subjective Subjective: Subjective: Patient seen and examined at bedside. Resting comfortably in chair next to bed. Patient states SOB has improved significantly relative to baseline. States he has nonradiating right elbow pain and right lower back discomfort. Denies f/c/ cp/abdominal pain/n/v/d/c/urinary sxs. Physical Examination: Constitutional Appears: No Acute Distress - Head Exam Head Exam: ATRAUMATIC, NORMOCEPHALIC - Eye Exam Eye Exam: absent: EOMI (patient blind) - ENT Exam ENT Exam: Mucous Membranes Moist - Neck Exam Neck exam: Positive for: Full Rom. Negative for: Lymphadenopathy, Tenderness, Thyromegaly - Respiratory Exam Respiratory Exam: wheezes- improved, absent: Rhonchi - Cardiovascular Exam Cardiovascular Exam: +S1, +S2. absent: Bradycardia, Tachycardia, Diastolic murmur, Gallop, Rubs, Systolic Murmur - GI/Abdominal Exam GI & Abdominal Exam: Soft. absent: Distended, Firm, Guarding, Organomegaly, Rebound, Tenderness - Extremities Exam Additional comments: FROM of the right elbow and of the lower back- no tenderness to palpation in either area scaling plaques b/l LE - Neurological Exam Neurological exam: Alert, Oriented x3 - Psychiatric Exam Psychiatric exam: Normal Affect, Normal Mood - Skin Skin Exam: Dry, Intact, Normal Color, Warm Assessment and Plan: COPD Exacerbation - Pulm consulted- appreciate recs - CXR read- discussed CT of chest- no need at this time - c/w Duoneb q2h prn and q6h scheduled - c/w Solu-Medrol 40 mg IVP Q12h - c/w BIPAP at night Pneumonia - CXR shows possible left-sided consolidation and lung mass; f/u official read - Elevated WBC likely due to IV steroids - ID consulted- antibiotics as per ID- patient started on doxycycline and meropenem - procalcitonin 0.28 - F/u blood, urine cultures UTI - UA reviewed- neg nitrates, moderate leukocyte esterase, moderate urine bacteria, WBC 25-30 - antibiotics as per ID- patient started on doxycycline and meropenem Right Elbow Pain, Right Lower Back Discomfort - patient has FROM and is NTTP in either area - positional relief encouraged - pain control with tylenol Atrial fibrillation - EKG showed a-fib with RVR on admission - Cont home med: Cardizem- may need to decrease dosage if HR further decreases DM - ISS - Accuchecks ACHS - Carb consistent diet H/O Pulmonary HTN - off of bosentan, monitor closely H/O Diastolic CHF - Echo (02/23) showed EF 54% - Cont home med: Lasix GI/DVT PPx - Protonix - SCDs DNR/DNI Patient seen, case discussed with, and plan approved by attending physician, Dr. Fairchild. Objective - Vital Signs/Intake and Output Vital Signs (last 24 hours): Temp Pulse Resp BP Pulse Ox 97.4 F L 94 H 18 122/60 94 L 08/22/17 06:00 08/22/17 06:00 08/22/17 06:00 08/22/17 00:01 08/22/17 06:00 Intake and Output: 08/22/17 08/22/17 06:59 18:59 Intake Total 120 Output Total 950 Balance -830 - Medications Medications: Current Medications Albuterol/Ipratropium (Duoneb 3 Mg/0.5 Mg (3 Ml) Ud) 3 ml IH Q2H PRN PRN Reason: Shortness of Breath Last Admin: 08/22/17 00:19 Dose: 3 ml Albuterol/Ipratropium (Duoneb 3 Mg/0.5 Mg (3 Ml) Ud) 3 ml IH [id number] [facility] Last Admin: 08/22/17 07:50 Dose: 3 ml Cyanocobalamin (Vitamin B12 1000 Mcg Tab) 500 mcg PO DAILY [facility] Last Admin: 08/21/17 10:23 Dose: 500 mcg Diltiazem HCl (Cardizem Cd) 300 mg PO DAILY [facility] Last Admin: 08/21/17 10:22 Dose: 300 mg Doxycycline Hyclate (Doryx) 100 mg PO Q12 [facility] PRN Reason: Protocol Stop: 08/29/17 22:01 Last Admin: 08/21/17 21:27 Dose: 100 mg Furosemide (Lasix) 40 mg PO BID [facility] Last Admin: 08/21/17 18:06 Dose: 40 mg Home Med (Home Med) 1 unit PO BID [facility] Last Admin: 08/21/17 18:06 Dose: 1 unit Meropenem 1g/NS 100mL IVPB (Meropenem 1g/Ns 100ml Ivpb) 1 gm in 100 mls @ 100 mls/hr IVPB Q12 [facility] PRN Reason: Protocol Stop: 08/29/17 13:48 Last Admin: 08/21/17 21:29 Dose: 100 mls/hr Insulin Human Lispro (Humalog Low) 0 units SC ACHS [facility] PRN Reason: Protocol Last Admin: 08/22/17 08:09 Dose: 1 units Methylprednisolone (Solu-Medrol) 20 mg IV Q12 [facility] Pantoprazole Sodium (Protonix Inj) 40 mg IVP DAILY [facility] Last Admin: 08/21/17 10:23 Dose: 40 mg - Labs Labs: 08/22/17 07:30 08/22/17 07:30 PT 11.2 Seconds (9.9-11.8) 08/19/17 21:30 INR 1.04 (0.93-1.08) 08/19/17 21:30 APTT 27.5 Seconds (23.7-30.8) 08/19/17 21:30 <Jamie Fairchild - Last Filed: 08/22/17 13:15> Objective - Vital Signs/Intake and Output Vital Signs (last 24 hours): Temp Pulse Resp BP Pulse Ox 97.4 F L 92 H 18 123/63 94 L 08/22/17 06:00 08/22/17 10:48 08/22/17 06:00 08/22/17 10:49 08/22/17 06:00 Intake and Output: 08/22/17 08/22/17 06:59 18:59 Intake Total 120 Output Total 950 Balance -830 - Medications Medications: Current Medications Acetaminophen (Tylenol 325mg Tab) 650 mg PO Q6H PRN PRN Reason: Pain, moderate (4-7) Albuterol/Ipratropium (Duoneb 3 Mg/0.5 Mg (3 Ml) Ud) 3 ml IH Q2H PRN PRN Reason: Shortness of Breath Last Admin: 08/22/17 00:19 Dose: 3 ml Albuterol/Ipratropium (Duoneb 3 Mg/0.5 Mg (3 Ml) Ud) 3 ml IH [id number] [facility] Last Admin: 08/22/17 07:50 Dose: 3 ml Cyanocobalamin (Vitamin B12 1000 Mcg Tab) 500 mcg PO DAILY [facility] Last Admin: 08/22/17 10:50 Dose: 500 mcg Diltiazem HCl (Cardizem Cd) 300 mg PO DAILY [facility] Last Admin: 08/22/17 10:48 Dose: 300 mg Doxycycline Hyclate (Doryx) 100 mg PO Q12 [facility] PRN Reason: Protocol Stop: 08/29/17 22:01 Last Admin: 08/22/17 10:50 Dose: 100 mg Furosemide (Lasix) 40 mg PO BID [facility] Last Admin: 08/22/17 10:49 Dose: 40 mg Home Med (Home Med) 1 unit PO BID [facility] Last Admin: 08/22/17 10:51 Dose: Not Given Meropenem 1g/NS 100mL IVPB (Meropenem 1g/Ns 100ml Ivpb) 1 gm in 100 mls @ 100 mls/hr IVPB Q12 [facility] PRN Reason: Protocol Stop: 08/29/17 13:48 Last Admin: 08/22/17 10:47 Dose: 100 mls/hr Insulin Human Lispro (Humalog Low) 0 units SC ACHS [facility] PRN Reason: Protocol Last Admin: 08/22/17 12:10 Dose: 1 units Methylprednisolone (Solu-Medrol) 20 mg IV Q12 [facility] Pantoprazole Sodium (Protonix Inj) 40 mg IVP DAILY [facility] Last Admin: 08/22/17 10:50 Dose: 40 mg - Labs Labs: 08/22/17 07:30 08/22/17 07:30 PT 11.2 Seconds (9.9-11.8) 08/19/17 21:30 INR 1.04 (0.93-1.08) 08/19/17 21:30 APTT 27.5 Seconds (23.7-30.8) 08/19/17 21:30 Attending/Attestation - Attestation I have personally seen and examined this patient.: Yes I have fully participated in the care of the patient.: Yes I have reviewed all pertinent clinical information, including history, physical exam and plan: Yes Notes (Text): I have seen and examined patient with resident. This is a 71 year old male with past medical history of legal blindness, severe COPD (on 4L of O2 at home), pulmonary hypertension, obstructive sleep apnea, psoriasis, HTN, NIDDM and CAD ( s/p stents) and being legally blind who was brought by patients niece for evaluation of fever, dyspnea, productive cough and generalized weakness and found to have HCAP, COPD exacerbation and UTI. Continue duonebs, solumedrol taper, IV antibiotics (conrad+doxy). Urine culture is growing EColi. Will follow up on ID recommendations. Continue cardizem, bosentan and lasix. Discussed in detail with the assembler wet wash. Will taper solumedrol to 40 q12. Patient is DNI DNR. Long-term prognosis is poor. Upon discharge patient will follow up with and Dr Hale . Dr Jamie Fairchild
--- NOTE | 2017-08-22 11:13 | PN ---
DATE: 08/22/2017 SUBJECTIVE: The patient is in bed in no acute distress, nontoxic. PHYSICAL EXAMINATION: VITAL SIGNS: On exam, temperature is 98, blood pressure is 120/70, and respiratory rate of 16. HEENT: Unremarkable. NECK: Supple. LUNGS: Decreased breath sounds. HEART: Normal S1 and S2. ABDOMEN: Soft and nontender. LABORATORY DATA: Reveals a white count of 14,200, hemoglobin of 10, and platelets of 246. Chemistries reveals a BUN of 28 and creatinine of 1.0. Urinalysis is noted. Microbiology reveals a gram-negative andrea in the urine. Sputum cultures are pending. Blood cultures have no growth. Review of orders reveals the patient to be on p.o. doxycycline and IV meropenem. ASSESSMENT AND PLAN: This is a 72-year-old male with past medical history significant for chronic obstructive lung disease, congestive heart failure, left lung mass, psoriasis, depression, hypertension, diabetes, blindness, gastroesophageal reflux disease, coronary artery disease, recent hospitalization, admitted with severe sepsis with a left lower lobe healthcare-associated pneumonia, possible gram positive cocci, possible gram negative andrea, although the procalcitonin is normal. The patient does have a gram negative andrea also in the urine as cause of a severe sepsis with acute kidney injury, day #3 of meropenem and doxycycline. We will check on identification sensitivity of gram negative andrea and will complete 4 to 7 days of antibiotics for healthcare-associated pneumonia. Jurgen Carreon MD
[2017-08-22] MEDS: MethylPREDNISolone 40 mg Vial IVP SCH (11:34)
--- NOTE | 2017-08-22 14:03 | PN ---
DATE: 08/22/2017 PULMONARY PROGRESS NOTE SUBJECTIVE: The patient states that he is feeling somewhat better, he no longer is coughing as much, no longer wheezing. He states that he has urinary tract infection now that is being treated. I once again discussed with him his medical history and problems. PHYSICAL EXAMINATION: GENERAL: He is comfortable at rest. VITAL SIGNS: Temperature is 98.6, heart rate 70, respiratory rate 18, blood pressure 120/70, and oxygen saturation 96% on room air. HEENT: Normocephalic and atraumatic. NECK: Supple. No JVD. No lymphadenopathy. CARDIOVASCULAR: Regular rhythm. Systolic ejection murmur at the lower left sternal border. LUNGS: Have rales at the left base in the left upper lobe. There is no wheezing this morning. ABDOMEN: Soft. Bowel sounds normoactive without mass, guarding, rebound, or organomegaly. EXTREMITIES: Reveal no clubbing, cyanosis, or edema. There is no Homans sign. SKIN: No acute changes. NEUROLOGICAL: Shows no focal findings. LYMPHATICS: There is no lymphadenopathy in the supraclavicular notch nor in the cervical, inguinal, or axillary areas. IMPRESSION: Left lower lobe pneumonia, mass in the left upper lobe, acute bronchitis, end-stage renal disease, pulmonary hypertension, and now urinary tract infection. PLAN: I have discussed with Dr. Jamie Fairchild. We will decrease the corticosteroids and see if we can discharge him at the earliest possible time. Shayan Payton MD
[2017-08-22] MEDS: MethylPREDNISolone 40 mg Vial IV SCH (21:58)
[2017-08-23] MEDS: Albuterol-Ipratrop 3 mg / 0.5 (3 ml) UD IH SCH ×4 (01:50→22:10)
[2017-08-23 07:43] LABS: HEMATOCRIT 35.9 % (42.0-52.0); MEAN CELL VOLUME 82.9 fl (80.0-105.0); MEAN CORPUSCULAR HEMOGLOBIN 24.2 pg (25.0-35.0); MEAN CORPUSCULAR HGB CONC 29.2 g/dl (31.0-37.0); RED CELL DISTRIBUTION WIDTH 16.6 % (11.5-14.5); WHITE BLOOD COUNT 15.5 10^3/ul (4.5-11.0)
[2017-08-23 07:49] LABS: ALB/GLOB RATIO 1.1 (1.1-1.8); ALKALINE PHOSPHATASE 107 U/L (38-126); ALT/SGPT 58 U/L (7-56); AST/SGOT 25 U/L (17-59); BILIRUBIN,TOTAL 0.3 mg/dL (0.2-1.3); BLOOD UREA NITROGEN 29 mg/dL (7-21); CALCIUM 9.2 mg/dL (8.4-10.5); CARBON DIOXIDE 40 mmol/L (21-33); CHLORIDE 94 mmol/L (95-110); GFR AFRICAN-AMERICAN > 60; GLUCOSE,RANDOM 167 mg/dL (70-110); POTASSIUM 4.3 mmol/L (3.6-5.0); SODIUM 139 mmol/L (132-148); TOTAL PROTEIN 6.5 g/dL (5.8-8.3)
[2017-08-23] MEDS: Insulin Lispro (humaLOG) LOW Coverage SC SCH ×4 (08:14→22:04)
[2017-08-23] MEDS: Meropenem 1g/NS 100mL IVPB 1 GM/100 ML PIGGYBACK IVPB SCH ×2 (10:38→21:02)
[2017-08-23] MEDS: diltiaZEM 300 mg/24 Hours CD Cap PO SCH (10:39)
[2017-08-23] MEDS: BOSENTAN 125 MG PO SCH ×2 (10:39→19:10)
[2017-08-23] MEDS: MethylPREDNISolone 40 mg Vial IV SCH (10:40)
--- NOTE | 2017-08-23 11:57 | PN ---
DATE: 08/23/2017 SUBJECTIVE: The patient is in bed in no acute distress, nontoxic. PHYSICAL EXAMINATION: VITAL SIGNS: Temperature is 98, blood pressure is 140/70, and respiratory rate of 18. HEENT: Unremarkable. NECK: Supple. LUNGS: Decreased breath sounds. HEART: Normal S1 and S2. ABDOMEN: Soft and nontender. LABORATORY EXAMINATION: Reveals a white count of 15,500, hemoglobin of 10, and platelets of 228. Coagulation is noted. Chemistries reveals a BUN of 29 and creatinine of 1.0. Urinalysis reveals 25-30 wbc's. Microbiology reveals the blood cultures of no growth. Sputum cultures are pending. The urine culture is E coli, which is ESBL positive. Review of orders reveals the patient to be on p.o. doxycycline and IV meropenem. ASSESSMENT AND PLAN: This is a 72-year-old male seen earlier in [facility], bed 2 with past medical history significant for end-stage chronic obstructive lung disease, congestive heart failure, left lung mass, psoriasis, depression, hypertension, diabetes, blindness with gastroesophageal reflux disease, coronary artery disease, recent hospitalization, admitted with severe sepsis with left lower lobe healthcare-associated pneumonia, possible Gram positive cocci, possible Gram negative andrea pneumonia, although the procalcitonin is normal and an extended-spectrum beta-lactamase Escherichia coli in urine in a patient with severe sepsis, acute kidney injury, day #4 of meropenem and doxycycline. The patient is having urinary symptoms and we will order a PSA, should have Urology evaluation. For the pneumonia will need 4-7 days of antibiotics, however, for symptomatic urinary tract infection with possible prostatitis he may need longer antibiotics based on Urology the PSA level. We will follow closely with you. Jurgen Carreon MD
--- NOTE | 2017-08-23 12:08 | CP.PCM.PN ---
<Vishal Jones - Last Filed: 08/23/17 12:12> Subjective - Date & Time of Evaluation Date of Evaluation: 08/23/17 Time of Evaluation: 09:45 - Subjective Subjective: Subjective: Patient seen and examined at bedside. Resting comfortably in chair next to bed. Patient states SOB has improved significantly relative to baseline. States that his nonradiating right elbow pain and right lower back discomfort have improved from baseline. Admits to urinary frequency. Denies f/c/cp/abdominal pain/n/v/d/c. Physical Examination: Constitutional Appears: No Acute Distress - Head Exam Head Exam: ATRAUMATIC, NORMOCEPHALIC - Eye Exam Eye Exam: absent: EOMI (patient blind) - ENT Exam ENT Exam: Mucous Membranes Moist - Neck Exam Neck exam: Positive for: Full Rom. Negative for: Lymphadenopathy, Tenderness, Thyromegaly - Respiratory Exam Respiratory Exam: wheezes- improved, absent: Rhonchi - Cardiovascular Exam Cardiovascular Exam: +S1, +S2. absent: Bradycardia, Tachycardia, Diastolic murmur, Gallop, Rubs, Systolic Murmur - GI/Abdominal Exam GI & Abdominal Exam: Soft. absent: Distended, Firm, Guarding, Organomegaly, Rebound, Tenderness - Extremities Exam Additional comments: FROM of the right elbow and of the lower back- no tenderness to palpation in either area scaling plaques b/l LE - Neurological Exam Neurological exam: Alert, Oriented x3 - Psychiatric Exam Psychiatric exam: Normal Affect, Normal Mood - Skin Skin Exam: Dry, Intact, Normal Color, Warm Assessment and Plan: COPD Exacerbation - Pulm consulted- appreciate recs - CXR read- discussed CT of chest- no need at this time - c/w Duoneb q2h prn and q6h scheduled - c/w Solu-Medrol 40 mg IVP Q12h - c/w BIPAP at night Pneumonia - CXR shows possible left-sided consolidation and lung mass; f/u official read - Elevated WBC likely due to IV steroids - ID consulted- antibiotics as per ID- patient started on doxycycline and meropenem, patient will need outpatient IV abx for esbl - procalcitonin 0.28 - F/u blood, urine cultures UTI - UA reviewed- neg nitrates, moderate leukocyte esterase, moderate urine bacteria, WBC 25-30 - urine culture shows ESBL - antibiotics as per ID- patient started on doxycycline and meropenem Right Elbow Pain, Right Lower Back Discomfort - patient has FROM and is NTTP in either area - positional relief encouraged - pain control with tylenol Atrial fibrillation - EKG showed a-fib with RVR on admission - Cont home med: Cardizem- may need to decrease dosage if HR further decreases - not on AC at home- high fall risk DM - ISS - Accuchecks ACHS - Carb consistent diet H/O Pulmonary HTN - off of bosentan, monitor closely H/O Diastolic CHF - Echo (02/23) showed EF 54% - Cont home med: Lasix GI/DVT PPx - Protonix - SCDs DNR/DNI Patient seen, case discussed with, and plan approved by attending physician, Dr. Fairchild. Objective - Vital Signs/Intake and Output Vital Signs (last 24 hours): Temp Pulse Resp BP Pulse Ox 98.2 F 82 20 149/73 93 L 08/23/17 06:00 08/23/17 10:39 08/23/17 06:00 08/23/17 10:39 08/23/17 06:00 Intake and Output: 08/23/17 08/23/17 06:59 18:59 Intake Total 700 Output Total 500 Balance 200 - Medications Medications: Current Medications Acetaminophen (Tylenol 325mg Tab) 650 mg PO Q6H PRN PRN Reason: Pain, moderate (4-7) Last Admin: 08/23/17 10:34 Dose: 650 mg Albuterol/Ipratropium (Duoneb 3 Mg/0.5 Mg (3 Ml) Ud) 3 ml IH Q2H PRN PRN Reason: Shortness of Breath Last Admin: 08/22/17 00:19 Dose: 3 ml Albuterol/Ipratropium (Duoneb 3 Mg/0.5 Mg (3 Ml) Ud) 3 ml IH [id number] [place] Last Admin: 08/23/17 07:52 Dose: 3 ml Cyanocobalamin (Vitamin B12 1000 Mcg Tab) 500 mcg PO DAILY [facility] Last Admin: 08/23/17 10:46 Dose: 500 mcg Diltiazem HCl (Cardizem Cd) 300 mg PO DAILY [facility] Last Admin: 08/23/17 10:39 Dose: 300 mg Doxycycline Hyclate (Doryx) 100 mg PO Q12 [place] PRN Reason: Protocol Stop: 08/29/17 22:01 Last Admin: 08/23/17 10:36 Dose: 100 mg Furosemide (Lasix) 40 mg PO BID [facility] Last Admin: 08/23/17 10:36 Dose: 40 mg Home Med (Home Med) 1 unit PO BID [facility] Last Admin: 08/23/17 10:39 Dose: 1 unit Meropenem 1g/NS 100mL IVPB (Meropenem 1g/Ns 100ml Ivpb) 1 gm in 100 mls @ 100 mls/hr IVPB Q12 [facility] PRN Reason: Protocol Stop: 08/29/17 13:48 Last Admin: 08/23/17 10:38 Dose: 100 mls/hr Insulin Human Lispro (Humalog Low) 0 units SC ACHS [facility] PRN Reason: Protocol Last Admin: 08/23/17 08:14 Dose: 1 units Methylprednisolone (Medrol) 12 mg PO BRKDIN [facility] Pantoprazole Sodium (Protonix Inj) 40 mg IVP DAILY [facility] Last Admin: 08/23/17 10:37 Dose: 40 mg - Labs Labs: 08/23/17 07:34 08/23/17 07:34 PT 11.2 Seconds (9.9-11.8) 08/19/17 21:30 INR 1.04 (0.93-1.08) 08/19/17 21:30 APTT 27.5 Seconds (23.7-30.8) 08/19/17 21:30 <Jamie Fairchild - Last Filed: 08/23/17 13:16> Objective - Vital Signs/Intake and Output Vital Signs (last 24 hours): Temp Pulse Resp BP Pulse Ox 98.2 F 82 20 149/73 93 L 08/23/17 06:00 08/23/17 10:39 08/23/17 06:00 08/23/17 10:39 08/23/17 06:00 Intake and Output: 08/23/17 08/23/17 06:59 18:59 Intake Total 700 Output Total 500 Balance 200 - Medications Medications: Current Medications Acetaminophen (Tylenol 325mg Tab) 650 mg PO Q6H PRN PRN Reason: Pain, moderate (4-7) Last Admin: 08/23/17 10:34 Dose: 650 mg Albuterol/Ipratropium (Duoneb 3 Mg/0.5 Mg (3 Ml) Ud) 3 ml IH Q2H PRN PRN Reason: Shortness of Breath Last Admin: 08/22/17 00:19 Dose: 3 ml Albuterol/Ipratropium (Duoneb 3 Mg/0.5 Mg (3 Ml) Ud) 3 ml IH [id number] [facility] Last Admin: 08/23/17 07:52 Dose: 3 ml Cyanocobalamin (Vitamin B12 1000 Mcg Tab) 500 mcg PO DAILY [facility] Last Admin: 08/23/17 10:46 Dose: 500 mcg Diltiazem HCl (Cardizem Cd) 300 mg PO DAILY [facility] Last Admin: 08/23/17 10:39 Dose: 300 mg Doxycycline Hyclate (Doryx) 100 mg PO Q12 [place] PRN Reason: Protocol Stop: 08/29/17 22:01 Last Admin: 08/23/17 10:36 Dose: 100 mg Furosemide (Lasix) 40 mg PO BID [facility] Last Admin: 08/23/17 10:36 Dose: 40 mg Home Med (Home Med) 1 unit PO BID [facility] Last Admin: 08/23/17 10:39 Dose: 1 unit Meropenem 1g/NS 100mL IVPB (Meropenem 1g/Ns 100ml Ivpb) 1 gm in 100 mls @ 100 mls/hr IVPB Q12 [place] PRN Reason: Protocol Stop: 08/29/17 13:48 Last Admin: 08/23/17 10:38 Dose: 100 mls/hr Insulin Human Lispro (Humalog Low) 0 units SC ACHS [place] PRN Reason: Protocol Last Admin: 08/23/17 12:59 Dose: Not Given Methylprednisolone (Medrol) 12 mg PO BRKDIN [facility] Pantoprazole Sodium (Protonix Inj) 40 mg IVP DAILY [facility] Last Admin: 08/23/17 10:37 Dose: 40 mg - Labs Labs: 08/23/17 07:34 08/23/17 07:34 PT 11.2 Seconds (9.9-11.8) 08/19/17 21:30 INR 1.04 (0.93-1.08) 08/19/17 21:30 APTT 27.5 Seconds (23.7-30.8) 08/19/17 21:30 Attending/Attestation - Attestation I have personally seen and examined this patient.: Yes I have fully participated in the care of the patient.: Yes I have reviewed all pertinent clinical information, including history, physical exam and plan: Yes Notes (Text): I have seen and examined patient with resident. This is a 71 year old male with past medical history of legal blindness, severe COPD (on 4L of O2 at home), pulmonary hypertension, obstructive sleep apnea, psoriasis, HTN, NIDDM and CAD ( s/p stents) and being legally blind who was brought by patients niece for evaluation of fever, dyspnea, productive cough and generalized weakness and found to have HCAP, COPD exacerbation and UTI. Continue duonebs, solumedrol taper, IV antibiotics (conrad+doxy). Urine culture is growing Esbl. Urology consult pending. Continue cardizem, bosentan and lasix. Discussed in detail with the food technology teacher. Will taper steroids. Patient is DNI DNR. Long-term prognosis is poor. Upon discharge patient will follow up with and Dr Hale . Dr Jamie Fairchild
[2017-08-23 18:16] VITALS: RESP 20
[2017-08-24] MEDS: Albuterol-Ipratrop 3 mg / 0.5 (3 ml) UD IH SCH ×4 (02:23→19:51)
[2017-08-24 07:02] LABS: HEMATOCRIT 37.3 % (42.0-52.0); MEAN CELL VOLUME 83.1 fl (80.0-105.0); MEAN CORPUSCULAR HEMOGLOBIN 24.1 pg (25.0-35.0); RED CELL DISTRIBUTION WIDTH 16.5 % (11.5-14.5); WHITE BLOOD COUNT 17.8 10^3/ul (4.5-11.0)
--- NOTE | 2017-08-24 07:15 | PN ---
SUBJECTIVE: The patient appears comfortable this morning. He is not short of breath at rest. PHYSICAL EXAMINATION VITAL SIGNS: Temperature is 98.2, pulse 84, respirations 18-20, blood pressure 155/87. Oxygen saturation on nasal cannula is 96%. HEENT: Normocephalic, atraumatic. NECK: No JVD. CARDIOVASCULAR: Systolic ejection murmur at the lower left sternal border. No S3 gallop. LUNGS: Less crackles at the left lower lobe. Minimal/less bilateral rhonchi. No wheezing this morning. EXTREMITIES: Mild edema. No cyanosis, no clubbing. Calves are nontender to palpation. GASTROINTESTINAL: Abdomen is soft, nontender and nondistended. Bowel sounds are positive. SKIN: No acute rash. NEUROLOGIC: Limited at the present time. IMPRESSION: 1. Left lower lobe pneumonia. 2. Acute bronchitis. 3. End-stage chronic obstructive pulmonary disease, on home oxygen. 4. Left upper lobe lung mass. 5. Pulmonary hypertension. 6. Coronary artery disease. PLAN: The patient appears comfortable this morning. He is not short of breath at rest. His cough is much less. He does state to feeling much better overall. On physical exam, his bronchospasm is certainly less. I will continue with the current nebulizer treatments and oral steroids (started yesterday) for now. The patient remains on antibiotic therapy-as per Infectious Disease. There are no temperatures noted--resolved. There remains a mild leukocytosis-which may be partly due to the steroids. Repeat a.m. labs are pending. Clinical status of the patient is definitely improved-compared to the initial presentation. However, again, unfortunately, the future status/prognosis for this patient does remain poor. All are aware. I will discuss the above with Dr. Fairchild this morning. Fabricio Edmond MD [facility]
[2017-08-24 07:35] LABS: ALKALINE PHOSPHATASE 114 U/L (38-126); ALT/SGPT 57 U/L (7-56); AST/SGOT 28 U/L (17-59); BILIRUBIN,TOTAL 0.3 mg/dL (0.2-1.3); BLOOD UREA NITROGEN 38 mg/dL (7-21); CALCIUM 9.3 mg/dL (8.4-10.5); CARBON DIOXIDE 38 mmol/L (21-33); CHLORIDE 93 mmol/L (98-107); GFR AFRICAN-AMERICAN > 60; GLUCOSE,RANDOM 161 mg/dL (70-110); POTASSIUM 4.3 mmol/L (3.6-5.0); SODIUM 141 mmol/L (132-148)
[2017-08-24] MEDS: Insulin Lispro (humaLOG) LOW Coverage SC SCH ×4 (08:28→21:06)
[2017-08-24] MEDS: Meropenem 1g/NS 100mL IVPB 1 GM/100 ML PIGGYBACK IVPB SCH ×2 (09:22→21:10)
[2017-08-24] MEDS: diltiaZEM 300 mg/24 Hours CD Cap PO SCH (09:22)
[2017-08-24] MEDS: BOSENTAN 125 MG PO SCH ×2 (11:22→17:44)
--- NOTE | 2017-08-24 12:35 | CP.PCM.PN ---
<Vishal Jones - Last Filed: 08/24/17 12:31> Subjective - Date & Time of Evaluation Date of Evaluation: 08/24/17 Time of Evaluation: 10:30 - Subjective Subjective: Subjective: Patient seen and examined at bedside. Resting comfortably in chair next to bed. Requests that we talk to niece. Patient states SOB has improved significantly relative to baseline. Admits to continued urinary frequency. Denies f/c/cp/ abdominal pain/n/v/d/c. Physical Examination: Constitutional Appears: No Acute Distress - Head Exam Head Exam: ATRAUMATIC, NORMOCEPHALIC - Eye Exam Eye Exam: absent: EOMI (patient blind) - ENT Exam ENT Exam: Mucous Membranes Moist - Neck Exam Neck exam: Positive for: Full Rom. Negative for: Lymphadenopathy, Tenderness, Thyromegaly - Respiratory Exam Respiratory Exam: wheezes- improved, absent: Rhonchi - Cardiovascular Exam Cardiovascular Exam: +S1, +S2. absent: Bradycardia, Tachycardia, Diastolic murmur, Gallop, Rubs, Systolic Murmur - GI/Abdominal Exam GI & Abdominal Exam: Soft. absent: Distended, Firm, Guarding, Organomegaly, Rebound, Tenderness - Extremities Exam Additional comments: FROM of the right elbow and of the lower back- no tenderness to palpation in either area scaling plaques b/l LE - Neurological Exam Neurological exam: Alert, Oriented x3 - Psychiatric Exam Psychiatric exam: Normal Affect, Normal Mood - Skin Skin Exam: Dry, Intact, Normal Color, Warm Assessment and Plan: COPD Exacerbation - Pulm consulted- appreciate recs - CXR read- discussed CT of chest- no need at this time - c/w Duoneb q2h prn and q6h scheduled - c/w Solu-Medrol 40 mg IVP Q12h - c/w BIPAP at night Pneumonia - CXR shows possible left-sided consolidation and lung mass; f/u official read - Elevated WBC likely due to IV steroids - ID consulted- antibiotics as per ID- patient started on doxycycline and meropenem, patient will need outpatient IV abx for esbl - procalcitonin 0.28 - blood culture no growth UTI - UA reviewed- neg nitrates, moderate leukocyte esterase, moderate urine bacteria, WBC 25-30 - urine culture shows ESBL - antibiotics as per ID- patient started on doxycycline and meropenem- awaiting recommendations for outpatient antibiotics - awaiting urology recommendations for possible prostatitis - PSA is WNL Right Elbow Pain, Right Lower Back Discomfort - improved from baseline - patient has FROM and is NTTP in either area - positional relief encouraged - pain control with tylenol Atrial fibrillation - EKG showed a-fib with RVR on admission - Cont home med: Cardizem- may need to decrease dosage if HR further decreases - not on AC at home- high fall risk DM - ISS - Accuchecks ACHS - Carb consistent diet H/O Pulmonary HTN - off of bosentan, monitor closely H/O Diastolic CHF - Echo (02/23) showed EF 54% - Cont home med: Lasix GI/DVT PPx - Protonix - SCDs DNR/DNI Patient seen, case discussed with, and plan approved by attending physician, Dr. Fairchild Objective - Vital Signs/Intake and Output Vital Signs (last 24 hours): Temp Pulse Resp BP Pulse Ox 98.1 F 80 20 150/88 97 08/24/17 08:10 08/24/17 09:22 08/24/17 08:10 08/24/17 09:23 08/24/17 08:10 Intake and Output: 08/24/17 08/24/17 06:59 18:59 Intake Total 100 400 Output Total 800 Balance -700 400 - Medications Medications: Current Medications Acetaminophen (Tylenol 325mg Tab) 650 mg PO Q6H PRN PRN Reason: Pain, moderate (4-7) Last Admin: 08/24/17 09:37 Dose: 650 mg Albuterol/Ipratropium (Duoneb 3 Mg/0.5 Mg (3 Ml) Ud) 3 ml IH Q2H PRN PRN Reason: Shortness of Breath Last Admin: 08/22/17 00:19 Dose: 3 ml Albuterol/Ipratropium (Duoneb 3 Mg/0.5 Mg (3 Ml) Ud) 3 ml IH [id number] [facility] Last Admin: 08/24/17 07:28 Dose: 3 ml Cyanocobalamin (Vitamin B12 1000 Mcg Tab) 500 mcg PO DAILY [facility] Last Admin: 08/24/17 09:25 Dose: 500 mcg Diltiazem HCl (Cardizem Cd) 300 mg PO DAILY [facility] Last Admin: 08/24/17 09:22 Dose: 300 mg Doxycycline Hyclate (Doryx) 100 mg PO Q12 [place] PRN Reason: Protocol Stop: 08/29/17 22:01 Last Admin: 08/24/17 09:23 Dose: 100 mg Furosemide (Lasix) 40 mg PO BID [facility] Last Admin: 08/24/17 09:23 Dose: 40 mg Home Med (Home Med) 1 unit PO BID [facility] Last Admin: 08/24/17 11:22 Dose: 1 unit Meropenem 1g/NS 100mL IVPB (Meropenem 1g/Ns 100ml Ivpb) 1 gm in 100 mls @ 100 mls/hr IVPB Q12 [place] PRN Reason: Protocol Stop: 08/29/17 13:48 Last Admin: 08/24/17 09:22 Dose: 100 mls/hr Insulin Human Lispro (Humalog Low) 0 units SC ACHS [facility] PRN Reason: Protocol Last Admin: 08/24/17 08:28 Dose: Not Given Methylprednisolone (Medrol) 12 mg PO BRKDIN [facility] Last Admin: 08/24/17 08:30 Dose: 12 mg Pantoprazole Sodium (Protonix Inj) 40 mg IVP DAILY [facility] Last Admin: 08/24/17 09:24 Dose: 40 mg - Labs Labs: 08/24/17 06:51 08/24/17 06:47 PT 11.2 Seconds (9.9-11.8) 08/19/17 21:30 INR 1.04 (0.93-1.08) 08/19/17 21:30 APTT 27.5 Seconds (23.7-30.8) 08/19/17 21:30 <Andriy Reyes - Last Filed: 08/24/17 18:38> Objective - Vital Signs/Intake and Output Vital Signs (last 24 hours): Temp Pulse Resp BP Pulse Ox 98 F 80 20 165/84 H 96 08/24/17 16:00 08/24/17 16:00 08/24/17 16:00 08/24/17 18:05 08/24/17 16:00 Intake and Output: 08/24/17 08/24/17 06:59 18:59 Intake Total 100 680 Output Total 800 1100 Balance -700 -420 - Medications Medications: Current Medications Acetaminophen (Tylenol 325mg Tab) 650 mg PO Q6H PRN PRN Reason: Pain, moderate (4-7) Last Admin: 08/24/17 09:37 Dose: 650 mg Albuterol/Ipratropium (Duoneb 3 Mg/0.5 Mg (3 Ml) Ud) 3 ml IH Q2H PRN PRN Reason: Shortness of Breath Last Admin: 08/22/17 00:19 Dose: 3 ml Albuterol/Ipratropium (Duoneb 3 Mg/0.5 Mg (3 Ml) Ud) 3 ml IH [id number] [facility] Last Admin: 08/24/17 13:26 Dose: 3 ml Cyanocobalamin (Vitamin B12 1000 Mcg Tab) 500 mcg PO DAILY [facility] Last Admin: 08/24/17 09:25 Dose: 500 mcg Diltiazem HCl (Cardizem Cd) 300 mg PO DAILY [facility] Last Admin: 08/24/17 09:22 Dose: 300 mg Doxycycline Hyclate (Doryx) 100 mg PO Q12 [place] PRN Reason: Protocol Stop: 08/29/17 22:01 Last Admin: 08/24/17 09:23 Dose: 100 mg Furosemide (Lasix) 40 mg PO BID [facility] Last Admin: 08/24/17 18:05 Dose: 40 mg Home Med (Home Med) 1 unit PO BID [facility] Last Admin: 08/24/17 17:44 Dose: 1 unit Meropenem 1g/NS 100mL IVPB (Meropenem 1g/Ns 100ml Ivpb) 1 gm in 100 mls @ 100 mls/hr IVPB Q12 [place] PRN Reason: Protocol Stop: 08/29/17 13:48 Last Admin: 08/24/17 09:22 Dose: 100 mls/hr Insulin Human Lispro (Humalog Low) 0 units SC ACHS [facility] PRN Reason: Protocol Last Admin: 08/24/17 16:53 Dose: 1 units Methylprednisolone (Medrol) 12 mg PO BRKDIN [facility] Last Admin: 08/24/17 16:53 Dose: 12 mg Pantoprazole Sodium (Protonix Inj) 40 mg IVP DAILY [facility] Last Admin: 08/24/17 09:24 Dose: 40 mg - Labs Labs: 08/24/17 06:51 08/24/17 06:47 PT 11.2 Seconds (9.9-11.8) 08/19/17 21:30 INR 1.04 (0.93-1.08) 08/19/17 21:30 APTT 27.5 Seconds (23.7-30.8) 08/19/17 21:30 Attending/Attestation - Attestation I have personally seen and examined this patient.: Yes I have fully participated in the care of the patient.: Yes I have reviewed all pertinent clinical information, including history, physical exam and plan: Yes Notes (Text): 08/24/17 18:35 Attending note; Patient seen and examined with resident. Patient is a 72 year old male with past medical history of legal blindness, severe COPD (on 4L of O2 at home), pulmonary hypertension, obstructive sleep apnea on BIPAP, psoriasis, HTN, NIDDM and CAD (s/p stents) a who was brought by patients niece for evaluation of fever, dyspnea, productive cough and generalized weakness and found to have HCAP, COPD exacerbation and ESBL UTI. Continue duonebs, solumedrol taper, IV antibiotics (conrad+doxy). Urine culture is growing ESBL. ESBL UTI ; rule out prostatitis .PSA is normal .Urology consult requested . Continue cardizem, bosentan and lasix. Patient is DNI DNR. Long-term prognosis is poor. Case discussed with patient's niece in detail. Upon discharge patient will follow up with and Dr Hale .
--- NOTE | 2017-08-24 14:49 | CP.PCM.PN ---
Subjective - Date & Time of Evaluation Date of Evaluation: 08/24/17 Time of Evaluation: 13:25 - Subjective Subjective: Feeling better, not in distress, no fevers, cough is improved, no dysuria currently. Objective - Vital Signs/Intake and Output Vital Signs (last 24 hours): Temp Pulse Resp BP Pulse Ox 98.1 F 80 20 150/88 97 08/24/17 08:10 08/24/17 09:22 08/24/17 08:10 08/24/17 09:23 08/24/17 08:10 Intake and Output: 08/24/17 08/24/17 06:59 18:59 Intake Total 100 400 Output Total 800 Balance -700 400 - Medications Medications: Current Medications Acetaminophen (Tylenol 325mg Tab) 650 mg PO Q6H PRN PRN Reason: Pain, moderate (4-7) Last Admin: 08/24/17 09:37 Dose: 650 mg Albuterol/Ipratropium (Duoneb 3 Mg/0.5 Mg (3 Ml) Ud) 3 ml IH Q2H PRN PRN Reason: Shortness of Breath Last Admin: 08/22/17 00:19 Dose: 3 ml Albuterol/Ipratropium (Duoneb 3 Mg/0.5 Mg (3 Ml) Ud) 3 ml IH [id number] [facility] Last Admin: 08/24/17 07:28 Dose: 3 ml Cyanocobalamin (Vitamin B12 1000 Mcg Tab) 500 mcg PO DAILY [facility] Last Admin: 08/24/17 09:25 Dose: 500 mcg Diltiazem HCl (Cardizem Cd) 300 mg PO DAILY [facility] Last Admin: 08/24/17 09:22 Dose: 300 mg Doxycycline Hyclate (Doryx) 100 mg PO Q12 [facility] PRN Reason: Protocol Stop: 08/29/17 22:01 Last Admin: 08/24/17 09:23 Dose: 100 mg Furosemide (Lasix) 40 mg PO BID [facility] Last Admin: 08/24/17 09:23 Dose: 40 mg Home Med (Home Med) 1 unit PO BID [facility] Last Admin: 08/24/17 11:22 Dose: 1 unit Meropenem 1g/NS 100mL IVPB (Meropenem 1g/Ns 100ml Ivpb) 1 gm in 100 mls @ 100 mls/hr IVPB Q12 [facility] PRN Reason: Protocol Stop: 08/29/17 13:48 Last Admin: 08/24/17 09:22 Dose: 100 mls/hr Insulin Human Lispro (Humalog Low) 0 units SC ACHS [facility] PRN Reason: Protocol Last Admin: 08/24/17 08:28 Dose: Not Given Methylprednisolone (Medrol) 12 mg PO BRKDIN [facility] Last Admin: 08/24/17 08:30 Dose: 12 mg Pantoprazole Sodium (Protonix Inj) 40 mg IVP DAILY [facility] Last Admin: 08/24/17 09:24 Dose: 40 mg - Labs Labs: 08/24/17 06:51 08/24/17 06:47 PT 11.2 Seconds (9.9-11.8) 08/19/17 21:30 INR 1.04 (0.93-1.08) 08/19/17 21:30 APTT 27.5 Seconds (23.7-30.8) 08/19/17 21:30 - Constitutional Appears: Non-toxic, No Acute Distress - Head Exam Head Exam: NORMAL INSPECTION - ENT Exam ENT Exam: Mucous Membranes Moist - Neck Exam Neck Exam: absent: Meningismus - Respiratory Exam Respiratory Exam: Decreased Breath Sounds - Cardiovascular Exam Cardiovascular Exam: +S1, +S2 - GI/Abdominal Exam GI & Abdominal Exam: Soft. absent: Tenderness Assessment and Plan - Assessment and Plan (Free Text) Plan: Assessment severe sepsis due to left lower lobe pneumonia and UTI with ESBL E. coli consider COPD exacerbation - no evidence of pneumonia on CXR and PCT is <0.05 HTN COPD GERD coronary artery disease S/P PCI and stents placed DM osbtructive sleep apnea Plan continue Doxycycline and Merrem day 5 - PSA is only 1.6 - recommend to complete 7-10 days of antibiotics will monitor clinically
[2017-08-24] MEDS ORDERED: POLYETHYLENE GLYCOL 3350 17 GM/Dose PACKET PO ONE (18:45)
[2017-08-25] MEDS: Albuterol-Ipratrop 3 mg / 0.5 (3 ml) UD IH SCH ×3 (01:27→13:14)
--- NOTE | 2017-08-25 02:40 | CON ---
DATE: 08/24/2017 CONSULTATION CHIEF COMPLAINT: Shortness of breath. HISTORY OF PRESENT ILLNESS: This is a 72-year-old male seen in [facility]. The patient was initially admitted with shortness of breath, exacerbation of COPD. He has multiple medical problems during his hospitalization, the patient was complaining of dysuria, urinary frequency and urgency. He was found to have a urinary infection and a consultation was requested for possible prostatitis. The patient is seen in his room. He is in no acute distress. He is answering questions appropriately. The patient reports prior to this admission, he had no voiding issues. Currently, he has some urinary frequency and urgency. He had a dysuria which has been improving. He reports voiding with a good force of stream and no straining. He is unaware of any hematuria, as the patient is legally blind. consultation was requested regarding the above. PAST MEDICAL HISTORY: Significant for COPD, legally blind, pulmonary hypertension, congestive heart failure, hypertension, developmental delay, gastroesophageal reflux, left lung mass, and psoriasis. MEDICATIONS: Include Cardizem, Doryx, DuoNeb, insulin coverage, Lasix, Medrol, meropenem, Protonix, Tylenol, vitamin B12. ALLERGIES: NO KNOWN DRUG ALLERGIES. FAMILY HISTORY: Noncontributory. SOCIAL HISTORY: Positive for extensive smoking history in the past, but he quit. Denies any current smoking or EtOH use. REVIEW OF SYSTEM: A 12-point review of systems was obtained, positive for cough and shortness of breath. Positive for urinary frequency, urgency, and dysuria. Positive for difficulty ambulating. Positive for skin rash and itching. Denies any flank or back pain. Other systems are negative. Positive for difficulty with vision and being legally blind. PHYSICAL EXAMINATION: GENERAL: The patient is awake and alert, answering questions appropriately. VITAL SIGNS: He is afebrile, temperature of 98, pulse of 80, BP 165/84, respirations 20. NECK: Supple with no adenopathy. CHEST: Reveals a normal inspiratory effort. CARDIAC: Shows positive S1, S2. There is some mild edema of his lower extremities. SKIN: Shows multiple psoriatic patches. GENITOURINARY: Phallus is normal. He has a phimotic foreskin which is unable to be retracted over the glans. Scrotum is normal. Testes bilaterally descended, nontender, no masses. The epididymides are normal. ABDOMEN: Obese, soft, nontender, nondistended. There is no hepatosplenomegaly. There is no costovertebral angle tenderness. LABORATORY DATA: WBC count went upto 17.8 today, hemoglobin 10.8, creatinine 1.1 with a GFR greater than 60. The patient had a PSA done on the , which was 1.6. Urinalysis showed 2-5 rbc's, 25-30 wbc's. Urine culture grew E. coli. Blood cultures were negative. The urine culture was ESBL positive on radiologic exam. No recent pertinent urologic imaging has been done. Chest x-ray from 08/20/2017, showed a right apical density and underlying mass cannot be excluded. IMPRESSION AND PLAN: This is a 72-year-old male admitted with shortness of breath, apparent exacerbation of chronic obstructive pulmonary disease. Chest x-ray is showing apical density. As per the chart, the patient is current DNR/DNI status. It is unclear what the status of this pulmonary finding is; however, the patient has been seen by Pulmonology. Urologically, the patient appears to have any ESBL, positive urine culture. Urinary infection is likely secondary to his phimosis, as the patient is voiding through his foreskin. He also has obesity and prepubic fat, which was causing his phallus to be recessed under his fat pad. The patient appears to be emptying adequately. His GFR is normal. His PSA is normal which would go against any prostatitis. Urologically, the plan would be to obtain a renal ultrasound or possibly an abdominopelvic CT scan, given the patient's rise in WBC count. The patient also had a positive sputum culture for E. coli. He currently is only on Doryx and most likely will need increased antibiotic coverage. The patient is being seen by Infectious Disease, and they will manage his antibiotic coverage. I discussed with the patient that likely his urine infection was caused by retracting his foreskin. He does report that he has not done this in many years. I would recommend an outpatient urologic followup after this acute admission. We will need to recheck his urine and discuss possible dorsal slit or other treatment, if he continues to re-infect his urine. Jase Malagon MD [facility] # [id number]
[2017-08-25 06:31] LABS: HEMATOCRIT 39.2 % (42.0-52.0); MEAN CELL VOLUME 83.4 fl (80.0-105.0); MEAN CORPUSCULAR HEMOGLOBIN 24.5 pg (25.0-35.0); MEAN CORPUSCULAR HGB CONC 29.3 g/dl (31.0-37.0); MEAN PLATELET VOLUME 9.9 fl (7.0-11.0); RED CELL DISTRIBUTION WIDTH 16.5 % (11.5-14.5); WHITE BLOOD COUNT 20.1 10^3/ul (4.5-11.0)
[2017-08-25 06:55] LABS: ALB/GLOB RATIO 1.1 (1.1-1.8); ALKALINE PHOSPHATASE 121 U/L (38-126); GFR AFRICAN-AMERICAN > 60; GLUCOSE,RANDOM 135 mg/dL (70-110); POTASSIUM 4.2 mmol/L (3.6-5.0)
[2017-08-25 07:13] LABS: ALT/SGPT 54 U/L (7-56); AST/SGOT 32 U/L (17-59); BILIRUBIN,TOTAL 0.4 mg/dL (0.2-1.3); BLOOD UREA NITROGEN 34 mg/dL (7-21); CALCIUM 9.4 mg/dL (8.4-10.5); CHLORIDE 92 mmol/L (98-107); SODIUM 140 mmol/L (132-148); TOTAL PROTEIN 7.1 g/dL (5.8-8.3)
--- NOTE | 2017-08-25 07:19 | PN ---
SUBJECTIVE: The patient appears comfortable this morning. He is not short of breath at rest. PHYSICAL EXAMINATION VITAL SIGNS: Temperature is 98.0, pulse 80, respirations 20, blood pressure 165/84. Oxygen saturation on nasal cannula is 96% to 97%. HEENT: Normocephalic, atraumatic. NECK: No JVD. CARDIOVASCULAR: Systolic ejection murmur at the lower left sternal border. No S3 gallop. LUNGS: Minimal/less crackles at the left lower lobe. Minimal/less rhonchi. No wheezing. EXTREMITIES: Mild edema. No cyanosis, no clubbing. Calves are nontender to palpation. GASTROINTESTINAL: Abdomen is soft, nontender and nondistended. Bowel sounds are positive. SKIN: No acute rash. NEUROLOGIC: Limited at the present time. IMPRESSION: 1. Left lower lobe pneumonia. 2. Acute bronchitis. 3. End-stage chronic obstructive pulmonary disease, on home oxygen. 4. Left upper lobe lung mass. 5. Pulmonary hypertension. 6. Coronary artery disease. PLAN: The patient appears comfortable this morning. He is not short of breath at rest. His cough is less. He does state to feeling much better overall. On physical exam, his bronchospasm is significantly less. I will continue with the current nebulizer treatments and change to oral prednisone (for ease of weaning). The patient remains on antibiotic therapy-as per Infectious Disease. The temperatures have now resolved. There remains a persistent leukocytosis-which may be partly due to the steroids. Clinical status of the patient is certainly improved-compared to the initial presentation. However, again, the future status/prognosis for this patient does remain poor. All are aware. I will discuss the above with the attending physician. Fabricio Edmond MD MTDTad
[2017-08-25 07:20] LABS: CARBON DIOXIDE 39 mmol/L (21-33)
[2017-08-25] MEDS: Insulin Lispro (humaLOG) LOW Coverage SC SCH ×3 (08:17→17:23)
[2017-08-25] MEDS: diltiaZEM 300 mg/24 Hours CD Cap PO SCH (09:50)
[2017-08-25] MEDS: BOSENTAN 125 MG PO SCH ×2 (09:51→17:25)
[2017-08-25] MEDS: Meropenem 1g/NS 100mL IVPB 1 GM/100 ML PIGGYBACK IVPB SCH (09:51)
[2017-08-25] MEDS ORDERED: POLYETHYLENE GLYCOL 3350 17 GM/Dose PACKET PO SCH (10:00)
--- NOTE | 2017-08-25 11:34 | CP.PCM.DIS ---
<Vishal Jones - Last Filed: 08/26/17 10:56> Provider - Provider Date of Admission: 08/19/17 22:59 Attending physician: Andriy Reyes MD Primary care physician: Jose C Ambrocio MD Time Spent in preparation of Discharge (in minutes): 45 Diagnosis - Discharge Diagnosis (1) COPD exacerbation Status: Acute Priority: Medium (2) Pneumonia Status: Acute Priority: Medium (3) CHF (congestive heart failure) Status: Chronic Priority: Medium (4) Lung mass Status: Chronic Priority: Medium (5) Urinary tract infection Status: Acute Priority: Medium (6) Atrial fibrillation Status: Acute (7) Diabetes Status: Acute Hospital Course - Lab Results Lab Results: Micro Results 08/20/17 15:30 Sputum Gram Stain - Final 08/20/17 15:30 Sputum Sputum Culture - Final Escherichia Coli Most Recent Lab Values WBC 20.1 10^3/ul (4.5-11.0) H 08/25/17 06:24 RBC 4.70 10^6/uL (3.5-6.1) 08/25/17 06:24 Hgb 11.5 g/dL (14.0-18.0) L 08/25/17 06:24 Hct 39.2 % (42.0-52.0) L 08/25/17 06:24 MCV 83.4 fl (80.0-105.0) 08/25/17 06:24 MCH 24.5 pg (25.0-35.0) L 08/25/17 06:24 MCHC 29.3 g/dl (31.0-37.0) L 08/25/17 06:24 RDW 16.5 % (11.5-14.5) H 08/25/17 06:24 Plt Count 287 10^3/uL (120.0-450.0) 08/25/17 06:24 MPV 9.9 fl (7.0-11.0) 08/25/17 06:24 Gran % 83.9 % (50.0-68.0) H 08/19/17 21:30 Lymph % (Auto) 7.0 % (22.0-35.0) L 08/19/17 21:30 [place] % (Auto) 8.3 % (1.0-6.0) H 08/19/17 21:30 Eos % (Auto) 0.6 % (1.5-5.0) L 08/19/17 21:30 Baso % (Auto) 0.2 % (0.0-3.0) 08/19/17 21:30 Gran # 9.90 (1.4-6.5) H 08/19/17 21:30 Lymph # 0.8 (1.2-3.4) L 08/19/17 21:30 [place] # 1.0 (0.1-0.6) H 08/19/17 21:30 Eos # 0.1 (0.0-0.7) 08/19/17 21: Baso # 0.02 K/mm3 (0.0-2.0) 08/19/17 21:30 PT 11.2 Seconds (9.9-11.8) 08/19/17:30 INR 1.04 (0.93-1.08) 08/19/17: APTT 27.5 Seconds (23.7-30.8) 08/19/17 21:30 pCO2 64 mm/Hg (35-45) H 08/19/17 23:01 pO2 59.0 mm/Hg (80-100) L 08/19/17 23: HCO3 41.5 mmol/L (21-28) H* 08/19/17 23:01 ABG pH 7.42 (7.35-7.45) 08/19/17 23:01 ABG Total CO2 43.5 mmol.L (22-28) H 08/19/17 23:01 ABG O2 Saturation 94.2 % (95-98) L 08/19/17 23:01 ABG Base Excess 14.0 mmol/L (-2.0-3.0) H 08/19/17 23:01 ABG Potassium 3.6 mmol/L (3.6-5.2) 08/19/17 23: Sodium 141.0 mmol/L (132-148) 08/19/17 23: Chloride 103.0 mmol/L (98-107) 08/19/17 23: Glucose 137 mg/dl (75-110) H 08/19/17 23:01 Lactate 0.8 mmol/L (0.7-2.1) 08/19/17 23:01 FiO2 35.0 % 08/19/17 23:01 Sodium 140 mmol/L (132-148) 08/25/17 06:24 Potassium 4.2 mmol/L (3.6-5.0) 08/25/17 06:24 Chloride 92 mmol/L (98-107) L 08/25/17 06:24 Carbon Dioxide 39 mmol/L (21-33) H 08/25/17 06:24 Anion Gap 13 (10-20) 08/25/17 06:24 BUN 34 mg/dL (7-21) H 08/25/17 06:24 Creatinine 1.0 mg/dL (0.8-1.5) 08/25/17 06:24 Est GFR ( Amer) > 60 08/25/17 06:24 Est GFR (Non-Af Amer) > 60 08/25/17 06:24 POC Glucose (mg/dL) 142 mg/dL (65-110) H 08/25/17 11:02 Random Glucose 135 mg/dL (70-110) H 08/25/17 06:24 Calcium 9.4 mg/dL (8.4-10.5) 08/25/17 06:24 Phosphorus 3.8 mg/dL (2.5-4.5) 08/20/17 06:15 Magnesium 1.8 mg/dL (1.7-2.2) 08/20/17 06:15 Total Bilirubin 0.4 mg/dL (0.2-1.3) 08/25/17 06:24 AST 32 U/L (17-59) 08/25/17 06:24 ALT 54 U/L (7-56) 08/25/17 06:24 Alkaline Phosphatase 121 U/L (38-126) 08/25/17 06:24 Lactate Dehydrogenase 326 U/L (333-699) L 08/19/17 21:30 Total Creatine Kinase < 20 U/L (35-230) L 08/19/17 21:30 Troponin I < 0.01 ng/mL 08/19/17 21:30 NT-Pro-B Natriuret Pep 496 pg/mL (0-450) H 08/19/17 21:30 Total Protein 7.1 g/dL (5.8-8.3) 08/25/17 06:24 Albumin 3.7 g/dL (3.0-4.8) 08/25/17 06:24 Globulin 3.5 gm/dL 08/25/17 06:24 Albumin/Globulin Ratio 1.1 (1.1-1.8) 08/25/17 06:24 Prostate Specific Ag 1.6 ng/mL (0.00-2.5) 08/23/17 08:58 Procalcitonin 0.28 NG/ML (0.19-0.49) 08/19/17 21:30 Arterial Blood Potassium 3.6 mmol/L (3.6-5.2) 08/19/17 23:01 Urine Color Yellow (YELLOW) 08/19/17 22:40 Urine Appearance Sl cloudy (CLEAR) 08/19/17 22:40 Urine pH 6.0 (4.7-8.0) 08/19/17 22:40 Ur Specific [place] 1.020 (1.005-1.035) 08/19/17 22:40 Urine Protein 100 mg/dL (<30 mg/dL) H 08/19/17 22:40 Urine Glucose (UA) Negative mg/dL (NEGATIVE) 08/19/17 22:40 Urine Ketones Trace mg/dL (NEGATIVE) H 08/19/17 22:40 Urine Blood Moderate (NEGATIVE) H 08/19/17 22:40 Urine Nitrate Negative (NEGATIVE) 08/19/17 22:40 Urine Bilirubin Negative (NEGATIVE) 08/19/17 22:40 Urine Urobilinogen 0.2 E.U./dL (<1 E.U./dL) 08/19/17 22:40 Ur Leukocyte Esterase Moderate Kristina/uL (NEGATIVE) H 08/19/17 22:40 Urine RBC 2 - 5 /hpf (0-2) 08/19/17 22:40 Urine WBC 25 - 30 /hpf (0-6) 08/19/17 22:40 Ur Epithelial Cells 1 - 3 /hpf (0-5) 08/19/17 22:40 Urine Bacteria Mod (NEG) 08/19/17 22:40 - Hospital Course Hospital Course: Patient is a 72 yo male with PMH of COPD, legally blind, pulmonary HTN, diastolic CHF with preserved EF, DM, HTN, developmental delay, GERD, left lung mass, psoriasis who admitted for evaluation and treatment of dyspnea and subjective fevers. With the use of physical examinations, lab work, and imaging the patient was diagnosed with and treated for COPD exacerbation, UTI, pneumonia along with the patients other chronic medical conditions. During their hospital stay the patient was seen by pulmnology, infectious disease, and urology whose recommendations were both appreciated and utilized in the care for this patient. During their hospital stay the patient underwent an CXR and EKG which were reviewed, appreciated, and utilized in the management of the patients clinical course. Patient was treated with antibiotics, duonebs, antibiotics, steroids, antihypertensive medications amongst other empiric/ therapeutic medications. At this time the patient is medically stable for discharge to TCU. Patient understands and appreciates discharge plan. Patient instructed to follow up with primary care physicians and referrals within three to five days from discharge. Furthermore, the patient is instructed to take medications as prescribed and to return to emergency room for evaluation of intractable headache, fever, chills, dizziness, chest pain, shortness of breath , abdominal pain, nausea, vomiting, diarrhea, constipation, and urinary symptoms. This is a brief summary of the patients hospital course. Please see patient chart for full details. Discharge Exam - Head Exam Head Exam: NORMAL INSPECTION - Additional Findings Additional findings: - Constitutional Appears: No Acute Distress - Head Exam Head Exam: ATRAUMATIC, NORMOCEPHALIC - Eye Exam Eye Exam: absent: EOMI (patient blind), PERRL - ENT Exam ENT Exam: Mucous Membranes Moist - Neck Exam Neck exam: Positive for: Full Rom. Negative for: Lymphadenopathy, Tenderness, Thyromegaly - Respiratory Exam Respiratory Exam: Mild Rales (R>L lung bases), Mild Wheezing (b/l). absent: Rhonchi - Cardiovascular Exam Cardiovascular Exam: Irregular Rhythm, +S1, +S2. absent: Bradycardia, Tachycardia, Diastolic murmur, Gallop, Rubs, Systolic Murmur - GI/Abdominal Exam GI & Abdominal Exam: Soft. absent: Distended, Firm, Guarding, Organomegaly, Rebound, Tenderness - Extremities Exam Additional comments: scaling plaques b/l LE - Neurological Exam Neurological exam: Alert, Oriented x3 - Psychiatric Exam Psychiatric exam: Normal Affect, Normal Mood - Skin Skin Exam: Dry, Intact, Normal Color, Warm Discharge Plan - Follow Up Plan Condition: FAIR Disposition: TRANSF TO SNF Patient education suggested?: Yes Instructions: Pneumococcal Vaccine for Adults (DC), Influenza Vaccine (DC), COPD (Chronic Obstructive Pulmonary Disease) (DC), Extended Spectrum Beta Lactamase (GEN), Fall Prevention (DC), Pneumonia (DC) Additional Instructions: Patient Instructions: Take medications as prescribed. Follow up with PMD and referrals within three to five days from discharge. Return to the emergency room for evaluation of intractable headache, fever, chills, dizziness, chest pain, shortness of breath, abdominal pain, nausea, vomiting, diarrhea, constipation, and urinary symptoms. Referrals: Jose C Ambrocio MD [Primary Care Provider] - <Andriy Reyes - Last Filed: 08/26/17 14:51> Provider - Provider Date of Admission: 08/19/17 22:59 Attending physician: Andriy Reyes MD Primary care physician: Jose C Ambrocio MD Hospital Course - Lab Results Lab Results: Micro Results 08/20/17 15:30 Sputum Gram Stain - Final 08/20/17 15:30 Sputum Sputum Culture - Final Escherichia Coli Most Recent Lab Values WBC 20.1 10^3/ul (4.5-11.0) H 08/25/17 06:24 RBC 4.70 10^6/uL (3.5-6.1) 08/25/17 06:24 Hgb 11.5 g/dL (14.0-18.0) L 08/25/17 06:24 Hct 39.2 % (42.0-52.0) L 08/25/17 06:24 MCV 83.4 fl (80.0-105.0) 08/25/17 06:24 MCH 24.5 pg (25.0-35.0) L 08/25/17 06:24 MCHC 29.3 g/dl (31.0-37.0) L 08/25/17 06:24 RDW 16.5 % (11.5-14.5) H 08/25/17 06:24 Plt Count 287 10^3/uL (120.0-450.0) 08/25/17 06:24 MPV 9.9 fl (7.0-11.0) 08/25/17 06:24 Gran % 83.9 % (50.0-68.0) H 08/19/17 21:30 Lymph % (Auto) 7.0 % (22.0-35.0) L 08/19/17 21:30 [place] % (Auto) 8.3 % (1.0-6.0) H 08/19/17 21:30 Eos % (Auto) 0.6 % (1.5-5.0) L 08/19/17 21:30 Baso % (Auto) 0.2 % (0.0-3.0) 08/19/17 21:30 Gran # 9.90 (1.4-6.5) H 08/19/17 21:30 Lymph # 0.8 (1.2-3.4) L 08/19/17 21:30 [place] # 1.0 (0.1-0.6) H 08/19/17 21:30 Eos # 0.1 (0.0-0.7) 08/19/17 21:30 Baso # 0.02 K/mm3 (0.0-2.0) 08/19/17 21:30 PT 11.2 Seconds (9.9-11.8) 08/19/17 21:30 INR 1.04 (0.93-1.08) 08/19/17 21:30 APTT 27.5 Seconds (23.7-30.8) 08/19/17 21:30 pCO2 64 mm/Hg (35-45) H 08/19/17 23:01 pO2 59.0 mm/Hg (80-100) L 08/19/17 23:01 HCO3 41.5 mmol/L (21-28) H* 08/19/17 23:01 ABG pH 7.42 (7.35-7.45) 08/19/17 23:01 ABG Total CO2 43.5 mmol.L (22-28) H 08/19/17 23:01 ABG O2 Saturation 94.2 % (95-98) L 08/19/17 23:01 ABG Base Excess 14.0 mmol/L (-2.0-3.0) H 08/19/17 23:01 ABG Potassium 3.6 mmol/L (3.6-5.2) 08/19/17 23: Sodium 141.0 mmol/L (132-148) 08/19/17 23:01 Chloride 103.0 mmol/L (98-107) 08/19/17 23:01 Glucose 137 mg/dl (75-110) H 08/19/17 23:01 Lactate 0.8 mmol/L (0.7-2.1) 08/19/17 23:01 FiO2 35.0 % 08/19/17 23:01 Sodium 140 mmol/L (132-148) 08/25/17 06:24 Potassium 4.2 mmol/L (3.6-5.0) 08/25/17 06:24 Chloride 92 mmol/L (98-107) L 08/25/17 06:24 Carbon Dioxide 39 mmol/L (21-33) H 08/25/17 06:24 Anion Gap 13 (10-20) 08/25/17 06:24 BUN 34 mg/dL (7-21) H 08/25/17 06:24 Creatinine 1.0 mg/dL (0.8-1.5) 08/25/17 06:24 Est GFR ( Amer) > 60 08/25/17 06:24 Est GFR (Non-Af Amer) > 60 08/25/17 06:24 POC Glucose (mg/dL) 200 mg/dL (65-110) H 08/25/17 22:01 Random Glucose 135 mg/dL (70-110) H 08/25/17 06:24 Calcium 9.4 mg/dL (8.4-10.5) 08/25/17 06:24 Phosphorus 3.8 mg/dL (2.5-4.5) 08/20/17 06:15 Magnesium 1.8 mg/dL (1.7-2.2) 08/20/17 06:15 Total Bilirubin 0.4 mg/dL (0.2-1.3) 08/25/17 06:24 AST 32 U/L (17-59) 08/25/17 06:24 ALT 54 U/L (7-56) 08/25/17 06:24 Alkaline Phosphatase 121 U/L (38-126) 08/25/17 06:24 Lactate Dehydrogenase 326 U/L (333-699) L 08/19/17 21:30 Total Creatine Kinase < 20 U/L (35-230) L 08/19/17 21:30 Troponin I < 0.01 ng/mL 08/19/17 21:30 NT-Pro-B Natriuret Pep 496 pg/mL (0-450) H 08/19/17 21:30 Total Protein 7.1 g/dL (5.8-8.3) 08/25/17 06:24 Albumin 3.7 g/dL (3.0-4.8) 08/25/17 06:24 Globulin 3.5 gm/dL 08/25/17 06:24 Albumin/Globulin Ratio 1.1 (1.1-1.8) 08/25/17 06:24 Prostate Specific Ag 1.6 ng/mL (0.00-2.5) 08/23/17 08:58 Procalcitonin 0.28 NG/ML (0.19-0.49) 08/19/17 21:30 Arterial Blood Potassium 3.6 mmol/L (3.6-5.2) 08/19/17 23:01 Urine Color Yellow (YELLOW) 08/19/17 22:40 Urine Appearance Sl cloudy (CLEAR) 08/19/17 22:40 Urine pH 6.0 (4.7-8.0) 08/19/17 22:40 Ur Specific [place] 1.020 (1.005-1.035) 08/19/17 22:40 Urine Protein 100 mg/dL (<30 mg/dL) H 08/19/17 22:40 Urine Glucose (UA) Negative mg/dL (NEGATIVE) 08/19/17 22:40 Urine Ketones Trace mg/dL (NEGATIVE) H 08/19/17 22:40 Urine Blood Moderate (NEGATIVE) H 08/19/17 22:40 Urine Nitrate Negative (NEGATIVE) 08/19/17 22:40 Urine Bilirubin Negative (NEGATIVE) 08/19/17 22:40 Urine Urobilinogen 0.2 E.U./dL (<1 E.U./dL) 08/19/17 22:40 Ur Leukocyte Esterase Moderate Kristina/uL (NEGATIVE) H 08/19/17 22:40 Urine RBC 2 - 5 /hpf (0-2) 08/19/17 22:40 Urine WBC 25 - 30 /hpf (0-6) 08/19/17 22:40 Ur Epithelial Cells 1 - 3 /hpf (0-5) 08/19/17 22:40 Urine Bacteria Mod (NEG) 08/19/17 22:40 Attending/Attestation - Attestation I have personally seen and examined this patient.: Yes I have fully participated in the care of the patient.: Yes I have reviewed all pertinent clinical information, including history, physical exam and plan: Yes Notes (Text): 08/26/17 14:49 Attending note; Patient seen and examined with resident. Patient is a 72 year old male with past medical history of legal blindness, severe COPD (on 4L of O2 at home), pulmonary hypertension, obstructive sleep apnea on BIPAP, psoriasis, HTN, NIDDM and CAD (s/p stents) a who was brought by patients niece for evaluation of fever, dyspnea, productive cough and generalized weakness and found to have HCAP, COPD exacerbation and ESBL UTI. Continue duonebs, solumedrol taper, IV antibiotics (conrad+doxy). Urine culture is growing ESBL. ESBL UTI ; rule out prostatitis .PSA is normal .Urology consult requested . Continue cardizem, bosentan and lasix. Patient is DNI DNR. Long-term prognosis is poor. Transfer to tcu today. Upon discharge patient will follow up with and Dr Hale .
--- NOTE | 2017-08-25 13:04 | CP.PCM.PN ---
Subjective - Date & Time of Evaluation Date of Evaluation: 08/25/17 Time of Evaluation: 11:55 - Subjective Subjective: Comfortable on a chair, no SOB at rest, less cough, no dysuria, no diarrhea. Objective - Vital Signs/Intake and Output Vital Signs (last 24 hours): Temp Pulse Resp BP Pulse Ox 97.9 F 68 20 133/79 94 L 08/25/17 07:55 08/25/17 07:55 08/25/17 07:55 08/25/17 07:55 08/25/17 07:55 Intake and Output: 08/25/17 08/25/17 06:59 18:59 Intake Total 940 280 Output Total 2500 200 Balance -1560 80 - Medications Medications: Current Medications Acetaminophen (Tylenol 325mg Tab) 650 mg PO Q6H PRN PRN Reason: Pain, moderate (4-7) Last Admin: 08/24/17 09:37 Dose: 650 mg Albuterol/Ipratropium (Duoneb 3 Mg/0.5 Mg (3 Ml) Ud) 3 ml IH Q2H PRN PRN Reason: Shortness of Breath Last Admin: 08/22/17 00:19 Dose: 3 ml Albuterol/Ipratropium (Duoneb 3 Mg/0.5 Mg (3 Ml) Ud) 3 ml IH [id number] [facility] Last Admin: 08/25/17 07:31 Dose: 3 ml Cyanocobalamin (Vitamin B12 1000 Mcg Tab) 500 mcg PO DAILY [facility] Last Admin: 08/24/17 09:25 Dose: 500 mcg Diltiazem HCl (Cardizem Cd) 300 mg PO DAILY [facility] Last Admin: 08/24/17 09:22 Dose: 300 mg Docusate Sodium (Colace) 100 mg PO TID [facility] Doxycycline Hyclate (Doryx) 100 mg PO Q12 [facility] PRN Reason: Protocol Stop: 08/29/17 22:01 Last Admin: 08/24/17 21:10 Dose: 100 mg Furosemide (Lasix) 40 mg PO BID [facility] Last Admin: 08/24/17 18:05 Dose: 40 mg Home Med (Home Med) 1 unit PO BID [facility] Last Admin: 08/24/17 17:44 Dose: 1 unit Meropenem 1g/NS 100mL IVPB (Meropenem 1g/Ns 100ml Ivpb) 1 gm in 100 mls @ 100 mls/hr IVPB Q12 [place] PRN Reason: Protocol Stop: 08/29/17 13:48 Last Admin: 08/24/17 21:10 Dose: 100 mls/hr Insulin Human Lispro (Humalog Low) 0 units SC ACHS [place] PRN Reason: Protocol Last Admin: 08/25/17 08:17 Dose: Not Given Pantoprazole Sodium (Protonix Inj) 40 mg IVP DAILY [facility] Last Admin: 08/24/17 09:24 Dose: 40 mg Polyethylene Glycol (Miralax) 17 gm PO DAILY [facility] Prednisone (Prednisone Tab) 20 mg PO DAILY [facility] - Labs Labs: 08/25/17 06:24 08/25/17 06:24 PT 11.2 Seconds (9.9-11.8) 08/19/17 21:30 INR 1.04 (0.93-1.08) 08/19/17 21:30 APTT 27.5 Seconds (23.7-30.8) 08/19/17 21:30 - Constitutional Appears: Non-toxic - Head Exam Head Exam: NORMAL INSPECTION - Neck Exam Neck Exam: absent: Meningismus - Respiratory Exam Respiratory Exam: Decreased Breath Sounds - Cardiovascular Exam Cardiovascular Exam: +S1, +S2 - GI/Abdominal Exam GI & Abdominal Exam: Soft. absent: Tenderness Assessment and Plan - Assessment and Plan (Free Text) Plan: Assessment severe sepsis due to left lower lobe pneumonia and UTI with ESBL E. coli consider COPD exacerbation - no evidence of pneumonia on CXR and PCT is <0.05 HTN COPD GERD coronary artery disease S/P PCI and stents placed DM osbtructive sleep apnea Plan continue Doxycycline and Merrem day 6 - PSA is only 1.6 - recommend to complete 7-10 days of antibiotics will continue to monitor clinically
[2017-08-25 16:48] VITALS: BP 128/66; PULSE 65; TEMP 98.2; O2SAT 95
[2017-08-25] MEDS ORDERED: POLYETHYLENE GLYCOL 3350 17 GM/Dose PACKET PO ONE (18:45)
--- NOTE | 2017-08-27 08:45 | PQF SEPSIS ---
This form is a permanent part of the medical record , ID noted Severe Sepsis due to LLL Pneumonia and UTI, please document if you concur. Clarification of your documentation is requested to better reflect the severity of illness and intensity of treatment of your patient. Indicators present [x] Temp < 96.8 or > 100.4 [] WBC count > 12,000/mm3 or <000/mm3 or 10% immature neutrophils [x] Heart Rate > 90 [x] Respiratory Rate > 20 [] Fever or hypothermia [] Chills [] Positive blood cultures [] Hypotension [] Metabolic acidosis (Elevated lactate level, anion gap or reduced blood pH) [] Acute confusion /Altered Mental Status [] Shock [] Other: [] Location in the medical record that reflects the above clinical findings: [] consult, progress notes Treatment Provided: [] PHYSICIAN'S RESPONSE Based on your medical judgment of the clinical indicators outlined above, are you treating this patient for a known or suspected: [] Sepsis / Septicemia Please specify organism if known [] [] SIRS (Systemic Inflammatory Response Syndrome) [] Severe Sepsis (Sepsis with Associated Organ Dysfunction) [] Fever of Unknown Origin [] Other, please indicate: [] [] If Unable to Determine, please check the box, sign and date. Present On Admission (POA) Indicator: [x] Present at the time of admission [] Not present at the time of admission [] Clinically Undetermined In responding to this query, please exercise your independent professional judgment. The fact that a question is asked does not imply that any particular answer is desired or expected. Thank you for your clarification on this documentation. If you have any questions please call:[ ] * Thank you, [X ] COLLEEN HARRISliberal arts dean MARINO
--- NOTE | 2017-08-28 10:20 | PQF SEPSIS ---
This form is a permanent part of the medical record DR HERNANDES, ID noted Severe Sepsis due to LLL Pneumonia and UTI. Please doucument if you concur. You forgot to check off dx. under Physician response on the previous query. Clarification of your documentation is requested to better reflect the severity of illness and intensity of treatment of your patient. Indicators present [] Temp < 96.8 or > 100.4 [] WBC count > 12,000/mm3 or <000/mm3 or 10% immature neutrophils [] Heart Rate > 90 [] Respiratory Rate > 20 [] Fever or hypothermia [] Chills [] Positive blood cultures [] Hypotension [] Metabolic acidosis (Elevated lactate level, anion gap or reduced blood pH) [] Acute confusion /Altered Mental Status [] Shock [] Other: [] Location in the medical record that reflects the above clinical findings: [] Treatment Provided: [] PHYSICIAN'S RESPONSE Based on your medical judgment of the clinical indicators outlined above, are you treating this patient for a known or suspected: [] Sepsis / Septicemia Please specify organism if known [] [] SIRS (Systemic Inflammatory Response Syndrome) [x] Severe Sepsis (Sepsis with Associated Organ Dysfunction) [] Fever of Unknown Origin [] Other, please indicate: [] [] If Unable to Determine, please check the box, sign and date. Present On Admission (POA) Indicator: [] Present at the time of admission [] Not present at the time of admission [] Clinically Undetermined In responding to this query, please exercise your independent professional judgment. The fact that a question is asked does not imply that any particular answer is desired or expected. Thank you for your clarification on this documentation. If you have any questions please call:[ ] * Thank you, [ X] COLLEEN utility tractor operator MARINO
== END 2017-08-25 20:09 | DRG 871 ==
LOC: ED 21:06 → ERH 22:59 → 2RNO 08-20 00:28 → 5RNO 08-24 00:41
PROVIDERS: ADMIT Hospitalist; ATTEND Internal Medicine
PROC: 5A09457 Assistance with Respiratory Ventilation, 24-96 Consecutive Hours, Continuous Positive Airway Pressure (ICD-10-PCS; principal; 2017-08-20)
PROC: 3E0F7GC Introduction of Other Therapeutic Substance into Respiratory Tract, Via Natural or Artificial Opening (ICD-10-PCS; 2017-08-20)
DX: A41.9 Sepsis, unspecified organism (principal); J18.9 Pneumonia, unspecified organism; N17.9 Acute kidney failure, unspecified; I11.0 Hypertensive heart disease with heart failure; N39.0 Urinary tract infection, site not specified; J44.1 Chronic obstructive pulmonary disease with (acute) exacerbation; I50.32 Chronic diastolic (congestive) heart failure; Z99.81 Dependence on supplemental oxygen; J44.0 Chronic obstructive pulmonary disease with (acute) lower respiratory infection; E11.9 Type 2 diabetes mellitus without complications; B96.20 Unspecified Escherichia coli [E. coli] as the cause of diseases classified elsewhere; R65.20 Severe sepsis without septic shock; I48.91 Unspecified atrial fibrillation; I27.20 Pulmonary hypertension, unspecified; K21.9 Gastro-esophageal reflux disease without esophagitis; I25.10 Atherosclerotic heart disease of native coronary artery without angina pectoris; L40.9 Psoriasis, unspecified; J20.9 Acute bronchitis, unspecified; Z66 Do not resuscitate; Z16.12 Extended spectrum beta lactamase (ESBL) resistance; Y95 Nosocomial condition; R91.8 Other nonspecific abnormal finding of lung field; G47.33 Obstructive sleep apnea (adult) (pediatric); N47.1 Phimosis; M25.521 Pain in right elbow; H54.8 Legal blindness, as defined in USA; F32.9 Major depressive disorder, single episode, unspecified; Z79.84 Long term (current) use of oral hypoglycemic drugs; Z95.5 Presence of coronary angioplasty implant and graft; Z87.891 Personal history of nicotine dependence

== ENCOUNTER 2017-08-25 20:12 | Inpatient (IN) | payer MEDICARE, OTHER ==
[2017-08-25] MEDS ORDERED: Albuterol-Ipratrop 3 mg / 0.5 (3 ml) UD IH PRN (20:16)
[2017-08-25] MEDS ORDERED: Meropenem 1g/NS 100mL IVPB 1 GM/100 ML PIGGYBACK IVPB SCH (22:00)
[2017-08-26] MEDS: Albuterol-Ipratrop 3 mg / 0.5 (3 ml) UD IH SCH ×4 (01:50→19:15)
[2017-08-26] MEDS ORDERED: Pneumococcal 23-Valent Vaccine IM ONE (02:13)
[2017-08-26] MEDS ORDERED: Influenza Vaccine 60 mcg/0.5 mL SYR (4YR UP) IM ONE (02:13)
[2017-08-26] MEDS: Insulin Lispro (humaLOG) LOW Coverage SC SCH ×5 (04:48→23:02)
[2017-08-26] MEDS: Pantoprazole 40 mg EC Tab PO SCH (05:51)
[2017-08-26] MEDS: Meropenem 1g/NS 100mL IVPB 1 GM/100 ML PIGGYBACK IVPB SCH ×2 (05:51→17:39)
[2017-08-26 05:59] LABS: BASO # 0.02 K/mm3 (0.0-2.0); BASO % 0.1 % (0.0-3.0); EOS # 0.4 (0.0-0.7); EOS % 2.3 % (1.5-5.0); GRAN # 12.88 (1.4-6.5); GRAN % 76.8 % (50.0-68.0); HEMATOCRIT 36.1 % (42.0-52.0); LYMPH # 2.3 (1.2-3.4); LYMPH % 13.8 % (22.0-35.0); MEAN CELL VOLUME 83.2 fl (80.0-105.0); MEAN CORPUSCULAR HEMOGLOBIN 24.4 pg (25.0-35.0); MEAN CORPUSCULAR HGB CONC 29.4 g/dl (31.0-37.0); MEAN PLATELET VOLUME 10.1 fl (7.0-11.0); MONO # 1.2 (0.1-0.6); RED CELL DISTRIBUTION WIDTH 16.5 % (11.5-14.5); WHITE BLOOD COUNT 16.8 10^3/ul (4.5-11.0)
[2017-08-26 06:13] LABS: ALB/GLOB RATIO 1.1 (1.1-1.8); ALKALINE PHOSPHATASE 110 U/L (38-126); ALT/SGPT 69 U/L (7-56); AST/SGOT 33 U/L (17-59); BILIRUBIN,TOTAL 0.4 mg/dL (0.2-1.3); BLOOD UREA NITROGEN 27 mg/dL (7-21); CHLORIDE 92 mmol/L (95-110); GFR AFRICAN-AMERICAN > 60; GLUCOSE,RANDOM 130 mg/dL (70-110); SODIUM 137 mmol/L (132-148); TOTAL PROTEIN 6.3 g/dL (5.8-8.3)
[2017-08-26 06:21] LABS: CARBON DIOXIDE 39 mmol/L (21-33)
--- NOTE | 2017-08-26 08:28 | PN ---
PULMONARY NOTE DATE: 08/26/2017 SUBJECTIVE: The patient appears comfortable this morning. He is out of bed, sitting in the chair. He is not short of breath at rest. OBJECTIVE: VITAL SIGNS: Temperature 98.9, pulse 75, respirations 18/20, and blood pressure 129/77. Oxygen saturation on nasal cannula is 95%. HEENT: Normocephalic and atraumatic. NECK: No JVD. CARDIOVASCULAR: Systolic ejection murmur at the lower left sternal border. No S3 or gallop. LUNGS: Less crackles at the lower lobe. Less rhonchi. No wheezing. EXTREMITIES: Mild edema. No cyanosis. No clubbing. Calves are nontender to palpation. GASTROINTESTINAL: Abdomen is soft, nontender, and nondistended. Bowel sounds are positive. SKIN: No acute rash. NEUROLOGIC: Limited at the present time. IMPRESSION: 1. Left lower lobe pneumonia. 2. Acute bronchitis. 3. End-stage chronic obstructive pulmonary disease, on home oxygen. 4. Left upper lobe lung mass. 5. Pulmonary hypertension. 6. Coronary artery disease. PLAN: The patient appears comfortable this morning. He is not short of breath at rest. His cough is less. He does state that he is feeling much better overall. On physical exam, his bronchospasm is less. In addition, the alveolar-arterial gradient is also less. I will continue the current nebulizer treatments and current oral steroids for now. The patient also remains on his tracleer for his pulmonary hypertension. I would continue with the antibiotic coverage as per Infectious Disease. Inputs are noted. Clinical status of the patient is certainly improved - compared to the initial presentation. However, again, the overall status/prognosis for this patient does remain poor. All are aware. I will discuss the above with the attending physician. Fabricio Edmond MD MARINO
--- NOTE | 2017-08-26 09:56 | CP.PCM.HP ---
<Vishal Jones - Last Filed: 08/26/17 10:48> History of Present Illness - History of Present Illness History of Present Illness: Subjective: Patient is a 72 yo male with PMH of COPD, legally blind, pulmonary HTN, diastolic CHF with preserved EF, DM, HTN, developmental delay, GERD, left lung mass, psoriasis who admitted for evaluation and treatment of dyspnea and subjective fevers. With the use of physical examinations, lab work, and imaging the patient was diagnosed with and treated for COPD exacerbation, UTI, pneumonia along with the patients other chronic medical conditions. During their hospital stay the patient was seen by pulmnology, infectious disease, and urology whose recommendations were both appreciated and utilized in the care for this patient. During their hospital stay the patient underwent an CXR and EKG which were reviewed, appreciated, and utilized in the management of the patients clinical course. Patient was treated with antibiotics, duonebs, antibiotics, steroids, antihypertensive medications amongst other empiric/ therapeutic medications. The patient was medically stable for discharge to TCU. Patient seen and examined at bedside. Patient was resting comfortably in chair. Offers no new complaints at this time. Denies f/c/cp/sob/abdominal pain/n/v/d/c / urinary symptoms. PMH: COPD, legally blind, pulmonary HTN, diastolic CHF with preserved EF, DM, HTN, developmental delay, GERD, left lung mass, psoriasis Surg: Hernia Repair FHx: DM1 (sister) All: NKDA SH: Prior 3 ppd smoker, quit 25 yrs ago; Denied EtOH and illicit drug use Medications: please see MAR Physical Examination: - Head Exam Head Exam: NORMAL INSPECTION - Additional Findings Additional findings: - Constitutional Appears: No Acute Distress - Head Exam Head Exam: ATRAUMATIC, NORMOCEPHALIC - Eye Exam Eye Exam: absent: EOMI (patient blind), PERRL - ENT Exam ENT Exam: Mucous Membranes Moist - Neck Exam Neck exam: Positive for: Full Rom. Negative for: Lymphadenopathy, Tenderness, Thyromegaly - Respiratory Exam Respiratory Exam: Mild Rales (R>L lung bases), Mild Wheezing (b/l). absent: Rhonchi - Cardiovascular Exam Cardiovascular Exam: Irregular Rhythm, +S1, +S2. absent: Bradycardia, Tachycardia, Diastolic murmur, Gallop, Rubs, Systolic Murmur - GI/Abdominal Exam GI & Abdominal Exam: Soft. absent: Distended, Firm, Guarding, Organomegaly, Rebound, Tenderness - Extremities Exam Additional comments: scaling plaques b/l LE - Neurological Exam Neurological exam: Alert, Oriented x3 - Psychiatric Exam Psychiatric exam: Normal Affect, Normal Mood - Skin Skin Exam: Dry, Intact, Normal Color, Warm Assessment and Plan: COPD Exacerbation - Pulm consulted- recommendations appreciated - c/w Duoneb q2h prn and q6h scheduled - c/w prednisone - c/w BIPAP at night Pneumonia - Elevated WBC likely due to steroids - c/w doxycycline and meropenem, patient will need outpatient IV abx for esbl UTI - Elevated WBC likely due to steroids - starting doxycycline and meropenem- awaiting recommendations for outpatient antibiotics - awaiting urology recommendations for possible prostatitis- recs include getting CT of abdomen - PSA is WNL Right Elbow Pain, Right Lower Back Discomfort - patient has FROM and is NTTP in either area - positional relief encouraged - pain control with tylenol Atrial fibrillation - c/w Cardizem- may need to decrease dosage if HR further decreases - not on AC at home- high fall risk DM - ISS - Accuchecks ACHS - Carb consistent diet H/O Pulmonary HTN - c/w home bosentan - monitor closely H/O Diastolic CHF - C/w Lasix Constipation - c/w miralax and colace GI/DVT PPx - Protonix - SCDs DNR/DNI Patient seen, case discussed with, and plan approved by attending physician, Dr. Reyes. Present on Admission - Present on Admission Any Indicators Present on Admission: No Past Patient History - Infectious Disease Hx of Infectious Diseases: None - Tetanus Immunizations Tetanus Immunization: Up to Date - Past Social History Smoking Status: Former Smoker - CARDIAC Hx Cardiac Disorders: Yes Hx Congestive Heart Failure: Yes Hx Hypertension: Yes - PULMONARY Hx Chronic Obstructive Pulmonary Disease (COPD): Yes (end stage) - NEUROLOGICAL Hx Neurological Disorder: Yes (Blind since the age of 1.) - HEENT Hx Blind: Yes (since age 1) - RENAL Hx Renal Failure: Yes - ENDOCRINE/METABOLIC Hx Diabetes Mellitus Type 2: Yes (niddm) - HEMATOLOGICAL/ONCOLOGICAL Hx Blood Disorders: Yes Hx Cancer: Yes (lung mass) - INTEGUMENTARY Hx Dermatological Problems: Yes (Reddened, flush skin, dry and taut. Thickened, whitish-yellowish skin patch) Hx Psoriasis: Yes Other/Comment: Generalized body surface area, including extremities and torso with reddened, flushed skin with dry, whitish-yellow, thick, scaly, flaky patches. - MUSCULOSKELETAL/RHEUMATOLOGICAL Hx Falls: Yes - GASTROINTESTINAL Hx Gastrointestinal Disorders: Yes - GENITOURINARY/GYNECOLOGICAL Hx Genitourinary Disorders: Yes Hx Reproductive Disorders: No - PSYCHIATRIC Hx Psychophysiologic Disorder: Yes Hx Substance Use: No (NONE NOTED) - SURGICAL HISTORY Hx Appendectomy: Yes - ANESTHESIA Hx Anesthesia Reactions: No Hx Malignant Hyperthermia: No Meds Allergies/Adverse Reactions: Allergies Allergy/AdvReac Type Severity Reaction Status Date / Time No Known Allergies Allergy Verified 08/25/17 20:15 Results - Vital Signs Recent Vital Signs: Last Vital Signs Temp 98.9 F 08/26/17 01:29 Pulse 75 08/26/17 01:54 Resp 20 08/26/17 01:29 BP 129/77 08/26/17 01:29 Pulse Ox - Labs Result Diagrams: 08/26/17 05:30 08/26/17 05:30 Labs: Laboratory Results - last 24 hr 08/26/17 08/26/17 05:30 05:30 WBC 16.8 H RBC 4.34 Hgb 10.6 L Hct 36.1 L MCV 83.2 MCH 24.4 L MCHC 29.4 L RDW 16.5 H Plt Count 260 MPV 10.1 Gran % 76.8 H Lymph % (Auto) 13.8 L Bullock % (Auto) 7.0 H Eos % (Auto) 2.3 Baso % (Auto) 0.1 Gran # 12.88 H Lymph # 2.3 Bullock # 1.2 H Eos # 0.4 Baso # 0.02 Sodium 137 Potassium 4.0 Chloride 92 L Carbon Dioxide 39 H Anion Gap 10 BUN 27 H Creatinine 1.0 Est GFR ( Amer) > 60 Est GFR (Non-Af Amer) > 60 Random Glucose 130 H Calcium 9.0 Total Bilirubin 0.4 AST 33 ALT 69 H Alkaline Phosphatase 110 Total Protein 6.3 Albumin 3.3 Globulin 3.0 Albumin/Globulin Ratio 1.1 <Andriy Reyes - Last Filed: 08/26/17 14:57> Results - Vital Signs Recent Vital Signs: Last Vital Signs Temp 98.9 F 08/26/17 01:29 Pulse 75 08/26/17 01:54 Resp 20 08/26/17 01:29 BP 114/62 08/26/17 10:28 Pulse Ox - Labs Result Diagrams: 08/26/17 05:30 08/26/17 05:30 Labs: Laboratory Results - last 24 hr 08/26/17 08/26/17 05:30 05:30 WBC 16.8 H RBC 4.34 Hgb 10.6 L Hct 36.1 L MCV 83.2 MCH 24.4 L MCHC 29.4 L RDW 16.5 H Plt Count 260 MPV 10.1 Gran % 76.8 H Lymph % (Auto) 13.8 L Bullock % (Auto) 7.0 H Eos % (Auto) 2.3 Baso % (Auto) 0.1 Gran # 12.88 H Lymph # 2.3 Bullock # 1.2 H Eos # 0.4 Baso # 0.02 Sodium 137 Potassium 4.0 Chloride 92 L Carbon Dioxide 39 H Anion Gap 10 BUN 27 H Creatinine 1.0 Est GFR ( Amer) > 60 Est GFR (Non-Af Amer) > 60 Random Glucose 130 H Calcium 9.0 Total Bilirubin 0.4 AST 33 ALT 69 H Alkaline Phosphatase 110 Total Protein 6.3 Albumin 3.3 Globulin 3.0 Albumin/Globulin Ratio 1.1 Attending/Attestation - Attestation I have personally seen and examined this patient.: Yes I have fully participated in the care of the patient.: Yes I have reviewed all pertinent clinical information: Yes Notes (Text): 08/26/17 14:54 Attending note; Patient seen and examined with resident in TCU. Patient is a 72 year old male with past medical history of legal blindness, severe COPD (on 4L of O2 at home), pulmonary hypertension, obstructive sleep apnea on BIPAP, psoriasis, HTN, NIDDM and CAD (s/p stents) a who was brought by patients niece for evaluation of fever, dyspnea, productive cough and generalized weakness and found to have HCAP, COPD exacerbation and ESBL UTI. Significant improvement in respiratory status. Continue oxygen during daytime and BiPAP at night. Continue duonebs, prednisone, IV antibiotics (conrad+doxy). ESBL UTI ; rule out prostatitis .PSA is normal .Urology consult appreciated. CT abdomen and pelvis requested. Patient will do it tomorrow. Continue cardizem, bosentan and lasix. Patient is DNI DNR. Long-term prognosis is poor. Case discussed with PMD in detail. Upon discharge patient will follow up with and Dr Hale . 08/26/17 14:56
[2017-08-26] MEDS: POLYETHYLENE GLYCOL 3350 17 GM/Dose PACKET PO SCH (10:27)
[2017-08-26] MEDS: diltiaZEM 300 mg/24 Hours CD Cap PO SCH (10:28)
[2017-08-26] MEDS: BOSENTAN 125 MG PO SCH ×2 (10:31→17:39)
--- NOTE | 2017-08-26 12:23 | CP.PCM.CON ---
History of Present Illness - History of Present Illness History of Present Illness: 71 year old male with PMH of HTN, COPD, GERD, coronary artery disease S/P PCI and stents placed, DM, obstructive sleep apnea was initially admitted in [facility] because of pneumonia and UTI with ESBL E. coli. He has been doing well and is now transferred to [facility] for continued medical therapy and physical rehab. Infectious diseases consult is requested to continue his antibiotic therapy. Currently he is comfortable on a chair, not in distress, afebrile, no nausea or vomiting, no chest pain, no SOB, on headache or dizziness , no abdominal pain, no diarrhea, no dysuria. Review of Systems - Review of Systems All systems: reviewed and no additional remarkable complaints except (as per HPI ) Past Patient History - Infectious Disease Hx of Infectious Diseases: None - Tetanus Immunizations Tetanus Immunization: Up to Date - Past Social History Smoking Status: Former Smoker - CARDIAC Hx Cardiac Disorders: Yes Hx Congestive Heart Failure: Yes Hx Hypertension: Yes - PULMONARY Hx Chronic Obstructive Pulmonary Disease (COPD): Yes (end stage) - NEUROLOGICAL Hx Neurological Disorder: Yes (Blind since the age of 1.) - HEENT Hx Blind: Yes (since age 1) - RENAL Hx Renal Failure: Yes - ENDOCRINE/METABOLIC Hx Diabetes Mellitus Type 2: Yes (niddm) - HEMATOLOGICAL/ONCOLOGICAL Hx Blood Disorders: Yes Hx Cancer: Yes (lung mass) - INTEGUMENTARY Hx Dermatological Problems: Yes (Reddened, flush skin, dry and taut. Thickened, whitish-yellowish skin patch) Hx Psoriasis: Yes Other/Comment: Generalized body surface area, including extremities and torso with reddened, flushed skin with dry, whitish-yellow, thick, scaly, flaky patches. - MUSCULOSKELETAL/RHEUMATOLOGICAL Hx Falls: Yes (past) - GASTROINTESTINAL Hx Gastrointestinal Disorders: Yes (reflux) - GENITOURINARY/GYNECOLOGICAL Hx Genitourinary Disorders: Yes Other/Comment: urinary urgency/frequency - PSYCHIATRIC Hx Psychophysiologic Disorder: Yes Hx Substance Use: No (NONE NOTED) - SURGICAL HISTORY Hx Appendectomy: Yes - ANESTHESIA Hx Anesthesia Reactions: No Hx Malignant Hyperthermia: No Meds Allergies/Adverse Reactions: Allergies Allergy/AdvReac Type Severity Reaction Status Date / Time No Known Allergies Allergy Verified 08/25/17 20:15 - Medications Medications: Current Medications Acetaminophen (Tylenol 325mg Tab) 650 mg PO Q6H PRN; Protocol PRN Reason: Pain, moderate (4-7) Albuterol/Ipratropium (Duoneb 3 Mg/0.5 Mg (3 Ml) Ud) 3 ml IH Q2H PRN; Protocol PRN Reason: Shortness of Breath Albuterol/Ipratropium (Duoneb 3 Mg/0.5 Mg (3 Ml) Ud) 3 ml IH [id number] [place] PRN Reason: Protocol Cyanocobalamin (Vitamin B12 1000 Mcg Tab) 1,000 mcg PO DAILY [facility] PRN Reason: Protocol Diltiazem HCl (Cardizem Cd) 300 mg PO DAILY [facility] PRN Reason: Protocol Docusate Sodium (Colace) 100 mg PO TID [place] PRN Reason: Protocol Doxycycline Hyclate (Doryx) 100 mg PO Q12 [facility] PRN Reason: Protocol Furosemide (Lasix) 40 mg PO BID [facility] PRN Reason: Protocol Meropenem 1g/NS 100mL IVPB (Meropenem 1g/Ns 100ml Ivpb) 1 gm in 100 mls @ 100 mls/hr IVPB Q12 [facility] PRN Reason: Protocol Stop: 08/30/17 22:01 Insulin Human Lispro (Humalog Low) 0 units SC ACHS [facility] PRN Reason: Protocol Non-Formulary Medication (Bosentan [Tracleer]) 125 mg PO BID [facility] Pantoprazole Sodium (Protonix Inj) 40 mg IVP 0600 [facility] PRN Reason: Protocol Polyethylene Glycol (Miralax) 17 gm PO DAILY [facility] PRN Reason: Protocol Prednisone (Prednisone Tab) 20 mg PO 0800 [place] PRN Reason: Protocol Physical Exam - Constitutional Appears: Non-toxic, No Acute Distress - Head Exam Head Exam: NORMAL INSPECTION - ENT Exam ENT Exam: Mucous Membranes Moist - Neck Exam Neck exam: Negative for: Lymphadenopathy, Meningismus - Respiratory Exam Respiratory Exam: Decreased Breath Sounds - Cardiovascular Exam Cardiovascular Exam: +S1, +S2 - GI/Abdominal Exam GI & Abdominal Exam: Soft. absent: Tenderness Results - Labs Result Diagrams: 08/26/17 05:30 08/26/17 05:30 Assessment & Plan - Assessment and Plan (Free Text) Plan: Assessment severe sepsis due to left lower lobe pneumonia and UTI with ESBL E. coli, clinically improving consider COPD exacerbation - no evidence of pneumonia on CXR and PCT is <0.05 HTN COPD GERD coronary artery disease S/P PCI and stents placed DM osbtructive sleep apnea Plan continue Doxycycline and Merrem day 7 - PSA is only 1.6 - recommend to complete 7-10 days of antibiotics will continue to monitor clinically
[2017-08-27] MEDS: Albuterol-Ipratrop 3 mg / 0.5 (3 ml) UD IH SCH ×4 (01:25→19:34)
[2017-08-27] MEDS: Meropenem 1g/NS 100mL IVPB 1 GM/100 ML PIGGYBACK IVPB SCH ×2 (05:13→17:47)
[2017-08-27] MEDS: Pantoprazole 40 mg EC Tab PO SCH (05:13)
[2017-08-27] MEDS: Insulin Lispro (humaLOG) LOW Coverage SC SCH (06:33)
[2017-08-27 08:11] LABS: BASO # 0.02 K/mm3 (0.0-2.0); BASO % 0.1 % (0.0-3.0); EOS # 0.3 (0.0-0.7); EOS % 1.8 % (1.5-5.0); GRAN # 12.37 (1.4-6.5); GRAN % 77.8 % (50.0-68.0); HEMATOCRIT 36.2 % (42.0-52.0); LYMPH # 1.8 (1.2-3.4); LYMPH % 11.4 % (22.0-35.0); MEAN CELL VOLUME 82.8 fl (80.0-105.0); MEAN CORPUSCULAR HEMOGLOBIN 24.5 pg (25.0-35.0); MEAN CORPUSCULAR HGB CONC 29.6 g/dl (31.0-37.0); MEAN PLATELET VOLUME 9.6 fl (7.0-11.0); MONO # 1.4 (0.1-0.6); MONO % 8.9 % (1.0-6.0); RED CELL DISTRIBUTION WIDTH 16.2 % (11.5-14.5); WHITE BLOOD COUNT 15.9 10^3/ul (4.5-11.0)
[2017-08-27 08:22] LABS: ALB/GLOB RATIO 1.1 (1.1-1.8); ALKALINE PHOSPHATASE 127 U/L (38-126); ALT/SGPT 53 U/L (7-56); AST/SGOT 19 U/L (17-59); BILIRUBIN,TOTAL 0.5 mg/dL (0.2-1.3); BLOOD UREA NITROGEN 25 mg/dL (7-21); CALCIUM 9.2 mg/dL (8.4-10.5); CARBON DIOXIDE 38 mmol/L (21-33); CHLORIDE 93 mmol/L (98-107); GFR AFRICAN-AMERICAN > 60; GLUCOSE,RANDOM 148 mg/dL (70-110); SODIUM 138 mmol/L (132-148); TOTAL PROTEIN 6.6 g/dL (5.8-8.3)
--- NOTE | 2017-08-27 08:31 | PN ---
DATE: 08/27/2017 PULMONARY PROGRESS NOTE SUBJECTIVE: The patient appears comfortable this morning. He is out of bed, sitting in the chair. He is not short of breath at rest. PHYSICAL EXAMINATION: VITAL SIGNS: Temperature is 96.7, pulse is 71, respirations are 18/20, and blood pressure is 129/72. Oxygen saturation on nasal cannula is 99%. HEENT: Normocephalic and atraumatic. NECK: No JVD. CARDIOVASCULAR: Systolic ejection murmur at the lower left sternal border. No S3 gallop. LUNGS: Less crackles at the left lower lobe. Less rhonchi. No wheezing. EXTREMITIES: Mild edema. No cyanosis and no clubbing. Calves are nontender to palpation. GASTROINTESTINAL: Abdomen is soft, nontender and nondistended. Bowel sounds are positive. SKIN: No acute rash. NEUROLOGIC: Exam limited at the present time. IMPRESSION 1. Left lower lobe pneumonia. 2. Acute bronchitis. 3. End-stage chronic obstructive pulmonary disease, on home oxygen. 4. Left upper lobe lung mass. 5. Pulmonary hypertension. 6. Coronary artery disease. PLAN: The patient appears comfortable this morning. He is out of bed, sitting in the chair. He is not short of breath at rest. He does state to feeling much better overall. On physical exam, his bronchospasm is certainly less. In addition, the oxygen saturation on nasal cannula is now 99%. I will continue the current nebulizer treatments and current oral steroids for now. The patient remains on his Tracleer for his pulmonary hypertension. I would continue with the antibiotic coverage as per Infectious Disease. There are no temperatures noted. I would continue with his physical therapy. Clinical status of the patient is certainly improved - compared to the initial presentation. However, again, the overall status/prognosis for this patient does remain poor. I will discuss the above with the attending physician. Fabricio Edmond MD MARINO
[2017-08-27] MEDS: diltiaZEM 300 mg/24 Hours CD Cap PO SCH (09:39)
[2017-08-27] MEDS: POLYETHYLENE GLYCOL 3350 17 GM/Dose PACKET PO SCH (09:41)
[2017-08-27] MEDS: BOSENTAN 125 MG PO SCH ×2 (09:44→17:49)
[2017-08-27] MEDS ORDERED: Insulin Lispro (humaLOG) MEDIUM Coverage SC SCH ×2 (11:30→16:30)
[2017-08-27] MEDS: Insulin Lispro (humaLOG) MEDIUM Coverage SC SCH ×3 (11:42→22:22)
--- NOTE | 2017-08-27 19:43 | CP.PCM.PN ---
Subjective - Date & Time of Evaluation Date of Evaluation: 08/27/17 Time of Evaluation: 09:55 - Subjective Subjective: Comfortable, afebrile, not in distress, improved breathing, no dysuria, no abdominal pain. Objective - Vital Signs/Intake and Output Vital Signs (last 24 hours): Temp Pulse Resp BP Pulse Ox 96.7 F L 71 20 139/72 99 08/27/17 06:00 08/27/17 06:00 08/27/17 06:00 08/27/17 06:00 08/27/17 06:00 Intake and Output: 08/27/17 08/27/17 06:59 18:59 Intake Total 540 Balance 540 - Medications Medications: Current Medications Acetaminophen (Tylenol 325mg Tab) 650 mg PO Q6H PRN; Protocol PRN Reason: Pain, moderate (4-7) Last Admin: 08/27/17 08:09 Dose: 650 mg Albuterol/Ipratropium (Duoneb 3 Mg/0.5 Mg (3 Ml) Ud) 3 ml IH Q2H PRN; Protocol PRN Reason: Shortness of Breath Albuterol/Ipratropium (Duoneb 3 Mg/0.5 Mg (3 Ml) Ud) 3 ml IH [id number] [place] PRN Reason: Protocol Last Admin: 08/27/17 07:18 Dose: 3 ml Cyanocobalamin (Vitamin B12 1000 Mcg Tab) 1,000 mcg PO DAILY [place] PRN Reason: Protocol Last Admin: 08/26/17 10:28 Dose: 1,000 mcg Diltiazem HCl (Cardizem Cd) 300 mg PO DAILY [place] PRN Reason: Protocol Last Admin: 08/26/17 10:28 Dose: 300 mg Docusate Sodium (Colace) 100 mg PO TID [place] PRN Reason: Protocol Last Admin: 08/26/17 17:39 Dose: Not Given Doxycycline Hyclate (Doryx) 100 mg PO Q12 [place] PRN Reason: Protocol Last Admin: 08/26/17 22:00 Dose: 100 mg Furosemide (Lasix) 40 mg PO DAILY [place] PRN Reason: Protocol Meropenem 1g/NS 100mL IVPB (Meropenem 1g/Ns 100ml Ivpb) 1 gm in 100 mls @ 100 mls/hr IVPB 0600,1800 [place] PRN Reason: Protocol Stop: 08/31/17 06:01 Last Admin: 08/27/17 05:13 Dose: 100 mls/hr Insulin Human Lispro (Humalog Med) 0 units SC ACHS [facility] PRN Reason: Protocol (Bosentan [Tracleer] (125 Mg) 125 mg PO BID [facility] Last Admin: 08/26/17 17:39 Dose: 125 mg Pantoprazole Sodium (Protonix Ec Tab) 40 mg PO 0600 [facility] Last Admin: 08/27/17 05:13 Dose: 40 mg Polyethylene Glycol (Miralax) 17 gm PO DAILY [place] PRN Reason: Protocol Last Admin: 08/26/17 10:27 Dose: 17 gm Prednisone (Prednisone Tab) 20 mg PO 0800 [facility] PRN Reason: Protocol Last Admin: 08/27/17 08:09 Dose: 20 mg - Labs Labs: 08/27/17 07:40 08/27/17 07:40 - Constitutional Appears: Non-toxic, No Acute Distress - Head Exam Head Exam: NORMAL INSPECTION - ENT Exam ENT Exam: Mucous Membranes Moist - Neck Exam Neck Exam: absent: Meningismus - Respiratory Exam Respiratory Exam: Decreased Breath Sounds - Cardiovascular Exam Cardiovascular Exam: +S1, +S2 - GI/Abdominal Exam GI & Abdominal Exam: Soft. absent: Tenderness Assessment and Plan - Assessment and Plan (Free Text) Plan: Assessment severe sepsis due to left lower lobe pneumonia and UTI with ESBL E. coli, clinically improving consider COPD exacerbation - no evidence of pneumonia on CXR and PCT is <0.05 HTN COPD GERD coronary artery disease S/P PCI and stents placed DM osbtructive sleep apnea Plan continue Doxycycline and Merrem day 9 - PSA is only 1.6 - recommend to complete up to 10 days of antibiotics will continue to monitor clinically
[2017-08-28] MEDS: Albuterol-Ipratrop 3 mg / 0.5 (3 ml) UD IH SCH ×4 (01:37→20:15)
[2017-08-28] MEDS: Pantoprazole 40 mg EC Tab PO SCH (05:51)
[2017-08-28] MEDS: Meropenem 1g/NS 100mL IVPB 1 GM/100 ML PIGGYBACK IVPB SCH ×2 (05:51→18:35)
[2017-08-28] MEDS: Insulin Lispro (humaLOG) MEDIUM Coverage SC SCH ×4 (06:53→22:04)
[2017-08-28 07:55] LABS: BASO # 0.03 K/mm3 (0.0-2.0); BASO % 0.2 % (0.0-3.0); EOS # 0.3 (0.0-0.7); EOS % 1.9 % (1.5-5.0); GRAN # 12.54 (1.4-6.5); HEMATOCRIT 36.4 % (42.0-52.0); LYMPH # 2.2 (1.2-3.4); LYMPH % 13.2 % (22.0-35.0); MEAN CELL VOLUME 82.9 fl (80.0-105.0); MEAN CORPUSCULAR HEMOGLOBIN 24.8 pg (25.0-35.0); MEAN CORPUSCULAR HGB CONC 29.9 g/dl (31.0-37.0); MEAN PLATELET VOLUME 9.6 fl (7.0-11.0); MONO # 1.3 (0.1-0.6); MONO % 7.7 % (1.0-6.0); RED CELL DISTRIBUTION WIDTH 16.2 % (11.5-14.5); WHITE BLOOD COUNT 16.3 10^3/ul (4.5-11.0)
[2017-08-28 08:07] LABS: ALB/GLOB RATIO 1.1 (1.1-1.8); ALKALINE PHOSPHATASE 117 U/L (38-126); ALT/SGPT 42 U/L (7-56); AST/SGOT 16 U/L (17-59); BILIRUBIN,TOTAL 0.4 mg/dL (0.2-1.3); BLOOD UREA NITROGEN 22 mg/dL (7-21); CALCIUM 9.4 mg/dL (8.4-10.5); CARBON DIOXIDE 38 mmol/L (21-33); CHLORIDE 94 mmol/L (98-107); GFR AFRICAN-AMERICAN > 60; GLUCOSE,RANDOM 148 mg/dL (70-110); POTASSIUM 4.4 mmol/L (3.6-5.0); SODIUM 138 mmol/L (132-148); TOTAL PROTEIN 6.4 g/dL (5.8-8.3)
--- NOTE | 2017-08-28 08:54 | PN ---
DATE: 08/28/2017 SUBJECTIVE: The patient appears comfortable this morning. He is out of bed, sitting in the chair. He is not short of breath. OBJECTIVE: VITALS (Last noted in the computer): Temperature is 97.1, pulse 71, respirations 20, blood pressure 123/66. Oxygen saturation on nasal cannula is 99%. HEENT: Normocephalic, atraumatic. No JVD. CARDIOVASCULAR: Systolic ejection murmur at the lower left sternal border. No S3 gallop. LUNGS: Minimal crackles at the left lower lobe. Minimal rhonchi. No wheezing. EXTREMITIES: Mild edema. No cyanosis, no clubbing. Calves are nontender to palpation. GASTROINTESTINAL: Abdomen is soft, nontender and nondistended. Bowel sounds are positive. SKIN: No acute rash. NEUROLOGIC: Exam limited at the present time. IMPRESSION: 1. Left lower lobe pneumonia. 2. Acute bronchitis. 3. End-stage chronic obstructive pulmonary disease, on home oxygen. 4. Left upper lobe lung mass. 5. Pulmonary hypertension. 6. Coronary artery disease. PLAN: The patient appears comfortable this morning. He is not short of breath at rest. He is out of bed, sitting in the chair. He does state to feeling much better overall. On physical exam, his bronchospasm is certainly less. In addition, the alveolar arterial gradient is also less. I will continue the current nebulizer treatments and oral steroids for now. The patient remains on antibiotic therapy - as per infectious disease. Input by Dr. Quarles is noted. Clinical status of the patient has significantly improved - compared to the initial presentation. However, again, the overall status/prognosis for this patient does remain poor. All are aware. I will discuss the above with the attending physician. Fabricio Edmond MD [id number]
[2017-08-28] MEDS: diltiaZEM 300 mg/24 Hours CD Cap PO SCH (09:53)
[2017-08-28] MEDS: POLYETHYLENE GLYCOL 3350 17 GM/Dose PACKET PO SCH (09:56)
[2017-08-28] MEDS: BOSENTAN 125 MG PO SCH ×2 (10:03→18:30)
--- NOTE | 2017-08-28 11:04 | PN ---
DATE: 08/28/2017 SUBJECTIVE: The patient was seen early this morning, in no acute distress. The patient is seen in room #315. No fevers or chills. OBJECTIVE: VITAL SIGNS: Temperature is 97, blood pressure is 120/60 and respiratory rate of 16. EXAMINATION OF HEENT: Unremarkable. NECK: Supple. LUNGS: Have decreased breath sounds. HEART EXAM: Normal S1 and S2. ABDOMINAL EXAMINATION: Soft and nontender. LABORATORY EXAMINATION: Reveals a 16,000 WBC; hemoglobin of 10 and platelets of 247. BUN of 22 and creatinine of 0.9. ASSESSMENT AND PLAN: This is a 72-year-old male with severe sepsis due to left lower lobe pneumonia, urinary tract infection with extended-spectrum beta-lactamase, clinically improving; chronic obstructive pulmonary disease exacerbation and hypertension and gastroesophageal reflux disease and coronary artery disease with status post PCR and stent placement with diabetes mellitus, obstructive sleep apnea; on day #10 of doxycycline, meropenem and today will be the last day of antibiotics. Jurgen Carreon MD
--- NOTE | 2017-08-28 12:33 | CP.PCM.PN ---
<Vishal Jones - Last Filed: 08/28/17 12:17> Subjective - Date & Time of Evaluation Date of Evaluation: 08/28/17 Time of Evaluation: 09:45 - Subjective Subjective: Subjective: Patient seen and examined at bedside. Resting comfortably in bed. No acute overnight events. Patient states that his SOB has improved relative to baseline. Offers no new complaints at this time. States that he will have the CT completed when he feels ready. He was concerned about feeling claustrophobic in the CT machine. Reassurance was provided. Denies fever, chills, chest pain, abdominal pain, nausea, vomiting, diarrhea, constipation, and urinary symptoms. Physical Examination: - Head Exam Head Exam: NORMAL INSPECTION - Additional Findings Additional findings: - Constitutional Appears: No Acute Distress - Head Exam Head Exam: ATRAUMATIC, NORMOCEPHALIC - Eye Exam Eye Exam: absent: EOMI (patient blind), PERRL - ENT Exam ENT Exam: Mucous Membranes Moist - Neck Exam Neck exam: Positive for: Full Rom. Negative for: Lymphadenopathy, Tenderness, Thyromegaly - Respiratory Exam Respiratory Exam: Mild Rales (R>L lung bases), Mild Wheezing (b/l). absent: Rhonchi - Cardiovascular Exam Cardiovascular Exam: Irregular Rhythm, +S1, +S2. absent: Bradycardia, Tachycardia, Diastolic murmur, Gallop, Rubs, Systolic Murmur - GI/Abdominal Exam GI & Abdominal Exam: Soft. absent: Distended, Firm, Guarding, Organomegaly, Rebound, Tenderness - Extremities Exam Additional comments: scaling plaques b/l LE - Neurological Exam Neurological exam: Alert, Oriented x3 - Psychiatric Exam Psychiatric exam: Normal Affect, Normal Mood - Skin Skin Exam: Dry, Intact, Normal Color, Warm Assessment and Plan: COPD Exacerbation - pulmonology consulted- appreciate recommendations - c/w Duoneb q2h prn and q6h scheduled - c/w prednisone - c/w BIPAP at night Pneumonia - Elevated WBC likely due to steroids - c/w doxycycline and meropenem, patient will need outpatient IV abx for esbl UTI - Elevated WBC likely due to steroids - c/w doxycycline and meropenem day #10- last day of antibiotics - follow with urology outpatient, Infectious disease consulted- recommendations appreciated- Rx for CT of abdomen pelvis left with nurse - PSA is WNL Right Elbow Pain, Right Lower Back Discomfort - patient has FROM and is NTTP in either area - positional relief encouraged - pain control with tylenol Atrial fibrillation - c/w Cardizem- may need to decrease dosage if HR further decreases - not on AC at home- high fall risk Diabetes - ISS - Accuchecks ACHS - Carb consistent diet History of Anemia - Hgb trended, reviewed, and appreciated - at baseline - will monitor via CBC History of Pulmonary HTN - c/w home bosentan - monitor closely History of Diastolic CHF - C/w Lasix Constipation - c/w miralax and colace GI/DVT PPx - Protonix - SCDs DNR/DNI Patient seen, case discussed with, and plan approved by attending physician, Dr. Reyes. Objective - Vital Signs/Intake and Output Vital Signs (last 24 hours): Temp Pulse Resp BP Pulse Ox 97.1 F L 73 20 115/69 99 08/27/17 10:56 08/28/17 09:53 08/27/17 10:56 08/28/17 09:55 08/27/17 10:56 Intake and Output: 08/28/17 08/28/17 06:59 18:59 Intake Total 520 Balance 520 - Medications Medications: Current Medications Acetaminophen (Tylenol 325mg Tab) 650 mg PO Q6H PRN; Protocol PRN Reason: Pain, moderate (4-7) Last Admin: 08/28/17 05:55 Dose: 650 mg Albuterol/Ipratropium (Duoneb 3 Mg/0.5 Mg (3 Ml) Ud) 3 ml IH Q2H PRN; Protocol PRN Reason: Shortness of Breath Albuterol/Ipratropium (Duoneb 3 Mg/0.5 Mg (3 Ml) Ud) 3 ml IH [id number] SYDNEY PRN Reason: Protocol Last Admin: 08/28/17 07:10 Dose: 3 ml Cyanocobalamin (Vitamin B12 1000 Mcg Tab) 1,000 mcg PO DAILY [place]NEY PRN Reason: Protocol Last Admin: 08/28/17 09:56 Dose: 1,000 mcg Diltiazem HCl (Cardizem Cd) 300 mg PO DAILY [place]NEY PRN Reason: Protocol Last Admin: 08/28/17 09:53 Dose: 300 mg Docusate Sodium (Colace) 100 mg PO TID SYDNEY PRN Reason: Protocol Last Admin: 08/28/17 09:54 Dose: 100 mg Doxycycline Hyclate (Doryx) 100 mg PO Q12 [place]NEY PRN Reason: Protocol Last Admin: 08/28/17 09:54 Dose: 100 mg Furosemide (Lasix) 40 mg PO DAILY [facility]NEY PRN Reason: Protocol Last Admin: 08/28/17 09:55 Dose: 40 mg Meropenem 1g/NS 100mL IVPB (Meropenem 1g/Ns 100ml Ivpb) 1 gm in 100 mls @ 100 mls/hr IVPB 0600,1800 SYDNEY PRN Reason: Protocol Stop: 08/31/17 06:01 Last Admin: 08/28/17 05:51 Dose: 100 mls/hr Insulin Human Lispro (Humalog Med) 0 units SC ACHS SYDNEY PRN Reason: Protocol Last Admin: 08/28/17 06:53 Dose: Not Given (Bosentan [Tracleer] (125 Mg) 125 mg PO BID SY[place]NEY Last Admin: 08/28/17 10:03 Dose: 125 mg Pantoprazole Sodium (Protonix Ec Tab) 40 mg PO 0600 [facility] Last Admin: 08/28/17 05:51 Dose: 40 mg Polyethylene Glycol (Miralax) 17 gm PO DAILY [place]NEY PRN Reason: Protocol Last Admin: 08/28/17 09:56 Dose: 17 gm Prednisone (Prednisone Tab) 20 mg PO 0800 [place] PRN Reason: Protocol Last Admin: 08/28/17 09:56 Dose: 20 mg - Labs Labs: 08/28/17 07:48 08/28/17 07:48 <Andriy Reyes - Last Filed: 08/28/17 15:53> Objective - Vital Signs/Intake and Output Vital Signs (last 24 hours): Temp Pulse Resp BP Pulse Ox 97.1 F L 73 20 115/69 99 08/27/17 10:56 08/28/17 09:53 08/27/17 10:56 08/28/17 09:55 08/27/17 10:56 Intake and Output: 08/28/17 08/28/17 06:59 18:59 Intake Total 520 Balance 520 - Medications Medications: Current Medications Acetaminophen (Tylenol 325mg Tab) 650 mg PO Q6H PRN; Protocol PRN Reason: Pain, moderate (4-7) Last Admin: 08/28/17 05:55 Dose: 650 mg Albuterol/Ipratropium (Duoneb 3 Mg/0.5 Mg (3 Ml) Ud) 3 ml IH Q2H PRN; Protocol PRN Reason: Shortness of Breath Albuterol/Ipratropium (Duoneb 3 Mg/0.5 Mg (3 Ml) Ud) 3 ml IH [id number] SYDNEY PRN Reason: Protocol Last Admin: 08/28/17 13:02 Dose: Not Given Cyanocobalamin (Vitamin B12 1000 Mcg Tab) 1,000 mcg PO DAILY [place] PRN Reason: Protocol Last Admin: 08/28/17 09:56 Dose: 1,000 mcg Diltiazem HCl (Cardizem Cd) 300 mg PO DAILY [place] PRN Reason: Protocol Last Admin: 08/28/17 09:53 Dose: 300 mg Docusate Sodium (Colace) 100 mg PO TID [place]NEY PRN Reason: Protocol Last Admin: 08/28/17 14:51 Dose: Not Given Doxycycline Hyclate (Doryx) 100 mg PO Q12 [place] PRN Reason: Protocol Last Admin: 08/28/17 09:54 Dose: 100 mg Furosemide (Lasix) 40 mg PO DAILY [place] PRN Reason: Protocol Last Admin: 08/28/17 09:55 Dose: 40 mg Meropenem 1g/NS 100mL IVPB (Meropenem 1g/Ns 100ml Ivpb) 1 gm in 100 mls @ 100 mls/hr IVPB 0600,1800 [facility] PRN Reason: Protocol Stop: 08/31/17 06:01 Last Admin: 08/28/17 05:51 Dose: 100 mls/hr Insulin Human Lispro (Humalog Med) 0 units SC ACHS SYDNEY PRN Reason: Protocol Last Admin: 08/28/17 06:53 Dose: Not Given (Bosentan [Tracleer] (125 Mg) 125 mg PO BID SY[place]NEY Last Admin: 08/28/17 10:03 Dose: 125 mg Pantoprazole Sodium (Protonix Ec Tab) 40 mg PO 0600 [facility] Last Admin: 08/28/17 05:51 Dose: 40 mg Polyethylene Glycol (Miralax) 17 gm PO DAILY [place]NEY PRN Reason: Protocol Last Admin: 08/28/17 09:56 Dose: 17 gm Prednisone (Prednisone Tab) 20 mg PO 0800 [place] PRN Reason: Protocol Last Admin: 08/28/17 09:56 Dose: 20 mg - Labs Labs: 08/28/17 07:48 08/28/17 07:48 Attending/Attestation - Attestation I have personally seen and examined this patient.: Yes I have fully participated in the care of the patient.: Yes I have reviewed all pertinent clinical information, including history, physical exam and plan: Yes Notes (Text): 08/28/17 15:52 Attending note; Patient seen and examined with resident in TCU. Patient is a 72 year old male with past medical history of legal blindness, severe COPD (on 4L of O2 at home), pulmonary hypertension, obstructive sleep apnea on BIPAP, psoriasis, HTN, NIDDM and CAD (s/p stents) a who was brought by patients niece for evaluation of fever, dyspnea, productive cough and generalized weakness and found to have HCAP, COPD exacerbation and ESBL UTI. Significant improvement in respiratory status. Continue oxygen during daytime and BiPAP at night. Continue duonebs, prednisone, IV antibiotics (conrad+doxy). needs to complete 10 days of Meropenem. ESBL UTI ; rule out prostatitis .PSA is normal .Urology consult appreciated. CT abdomen and pelvis requested. Patient is not ready for CT scan yet. Continue cardizem, bosentan and lasix. Patient is DNI DNR. Long-term prognosis is poor. Case discussed with PMD in detail. case discussed with immigration case worker in detail. Upon discharge patient will follow up with and Dr Hale . 08/28/17 15:53
[2017-08-29] MEDS: Albuterol-Ipratrop 3 mg / 0.5 (3 ml) UD IH SCH ×4 (03:22→20:13)
[2017-08-29] MEDS: Meropenem 1g/NS 100mL IVPB 1 GM/100 ML PIGGYBACK IVPB SCH (05:56)
[2017-08-29] MEDS: Pantoprazole 40 mg EC Tab PO SCH (05:56)
[2017-08-29] MEDS: Insulin Lispro (humaLOG) MEDIUM Coverage SC SCH ×4 (06:47→22:15)
--- NOTE | 2017-08-29 07:29 | PN ---
DATE: 08/29/2017 PULMONARY PROGRESS NOTE SUBJECTIVE: The patient appears comfortable this morning. He is out of bed, sitting in the chair. He is not short of breath at rest. PHYSICAL EXAMINATION: VITAL SIGNS: Temperature is 98.3, pulse is 68, respirations are 18/20, and blood pressure is 135/70. Oxygen saturation on room air is 90%. Oxygen saturation on nasal cannula is 95% to 97%. HEENT: Normocephalic and atraumatic. No JVD. CARDIOVASCULAR: Systolic ejection murmur at the lower left sternal border. No S3 gallop. LUNGS: Less crackles at the left lower lobe. Less rhonchi. No wheezing. EXTREMITIES: Mild edema. No cyanosis and no clubbing. Calves are nontender to palpation. GASTROINTESTINAL: Abdomen is soft, nontender and nondistended. Bowel sounds are positive. SKIN: No acute rash. NEUROLOGIC: Exam is limited at the present time. IMPRESSION 1. Left lower lobe pneumonia. 2. Acute bronchitis. 3. End-stage chronic obstructive pulmonary disease, on home oxygen. 4. Left upper lobe lung mass. 5. Pulmonary hypertension. 6. Coronary artery disease. PLAN: The patient appears comfortable this morning. He is not short of breath at rest. He is out of bed, sitting in the chair. He does state to feeling much better overall. On physical exam, his bronchospasm continues to slowly resolve. I will continue the current nebulizer treatments and decrease the oral steroids this morning. The patient also remains on antibiotic therapy - as per infectious disease. Input by Dr. Carreon is noted. Clinical status of the patient is certainly improved - compared to the initial presentation. However, again, the future status/prognosis for this patient does remain poor. All are aware. I will discuss the above with the attending physician. Fabricio Edmond MD MTDD
[2017-08-29 09:07] LABS: BASO # 0.02 K/mm3 (0.0-2.0); BASO % 0.1 % (0.0-3.0); EOS # 0.2 (0.0-0.7); EOS % 1.5 % (1.5-5.0); GRAN # 12.62 (1.4-6.5); GRAN % 79.6 % (50.0-68.0); HEMATOCRIT 35.7 % (42.0-52.0); LYMPH % 12.3 % (22.0-35.0); MEAN CELL VOLUME 83.8 fl (80.0-105.0); MEAN CORPUSCULAR HEMOGLOBIN 24.9 pg (25.0-35.0); MEAN CORPUSCULAR HGB CONC 29.7 g/dl (31.0-37.0); MONO % 6.5 % (1.0-6.0); RED CELL DISTRIBUTION WIDTH 16.3 % (11.5-14.5); WHITE BLOOD COUNT 15.9 10^3/ul (4.5-11.0)
[2017-08-29 09:27] LABS: ALB/GLOB RATIO 1.1 (1.1-1.8); ALKALINE PHOSPHATASE 108 U/L (38-126); ALT/SGPT 35 U/L (7-56); AST/SGOT 18 U/L (17-59); BILIRUBIN,TOTAL 0.3 mg/dL (0.2-1.3); BLOOD UREA NITROGEN 23 mg/dL (7-21); CALCIUM 9.3 mg/dL (8.4-10.5); CARBON DIOXIDE 36 mmol/L (21-33); CHLORIDE 94 mmol/L (98-107); GFR AFRICAN-AMERICAN > 60; GLUCOSE,RANDOM 199 mg/dL (70-110); POTASSIUM 4.4 mmol/L (3.6-5.0); SODIUM 137 mmol/L (132-148); TOTAL PROTEIN 6.5 g/dL (5.8-8.3)
[2017-08-29] MEDS: POLYETHYLENE GLYCOL 3350 17 GM/Dose PACKET PO SCH (10:16)
[2017-08-29] MEDS: diltiaZEM 300 mg/24 Hours CD Cap PO SCH (10:18)
[2017-08-29] MEDS: BOSENTAN 125 MG PO SCH ×2 (10:50→17:28)
--- NOTE | 2017-08-29 12:16 | PN ---
DATE: 08/29/2017 SUBJECTIVE: The patient is in bed in no acute distress, nontoxic. PHYSICAL EXAMINATION: VITAL SIGNS: Temperature is 98, blood pressure is 130/70, respiratory rate of 16. HEENT: Unremarkable. NECK: Supple. LUNGS: Have decreased breath sounds. HEART: Normal S1, S2. ABDOMEN: Soft. LABORATORY EXAMINATION: Reveals a white count of 15,900 and chemistries reveal the patient has a BUN of 22, creatinine of 0.9. Review of orders reveals the patient to be on doxycycline and meropenem and prednisone. ASSESSMENT AND PLAN: This is a 72-year-old male with severe sepsis due to left lower lobe pneumonia, urinary tract infection, extended-spectrum beta-lactamases improving, chronic obstructive lung disease and hypertension, gastroesophageal reflux disease and coronary artery disease and status post percutaneous coronary intervention and stent placement with diabetes and obstructive sleep apnea. We will discontinue the antibiotics. The patient has had adequate antibiotics, today is day number 11. Jurgen Carreon MD
[2017-08-30] MEDS: Albuterol-Ipratrop 3 mg / 0.5 (3 ml) UD IH SCH ×4 (01:10→20:31)
[2017-08-30] MEDS: Pantoprazole 40 mg EC Tab PO SCH (05:26)
[2017-08-30] MEDS: Insulin Lispro (humaLOG) MEDIUM Coverage SC SCH ×4 (06:34→22:21)
[2017-08-30 06:54] LABS: BASO # 0.02 K/mm3 (0.0-2.0); BASO % 0.1 % (0.0-3.0); EOS # 0.3 (0.0-0.7); EOS % 1.7 % (1.5-5.0); GRAN # 13.65 (1.4-6.5); GRAN % 78.8 % (50.0-68.0); HEMATOCRIT 36.4 % (42.0-52.0); LYMPH # 2.2 (1.2-3.4); LYMPH % 12.4 % (22.0-35.0); MEAN CELL VOLUME 83.5 fl (80.0-105.0); MEAN CORPUSCULAR HEMOGLOBIN 24.8 pg (25.0-35.0); MEAN CORPUSCULAR HGB CONC 29.7 g/dl (31.0-37.0); MEAN PLATELET VOLUME 10.4 fl (7.0-11.0); MONO # 1.2 (0.1-0.6); RED CELL DISTRIBUTION WIDTH 16.3 % (11.5-14.5); WHITE BLOOD COUNT 17.3 10^3/ul (4.5-11.0)
[2017-08-30 06:57] LABS: ALB/GLOB RATIO 1.1 (1.1-1.8); ALKALINE PHOSPHATASE 121 U/L (38-126); ALT/SGPT 37 U/L (7-56); AST/SGOT 20 U/L (17-59); BILIRUBIN,TOTAL 0.4 mg/dL (0.2-1.3); BLOOD UREA NITROGEN 25 mg/dL (7-21); CALCIUM 9.7 mg/dL (8.4-10.5); CARBON DIOXIDE 37 mmol/L (21-33); CHLORIDE 94 mmol/L (98-107); GFR AFRICAN-AMERICAN > 60; GLUCOSE,RANDOM 125 mg/dL (70-110); POTASSIUM 4.2 mmol/L (3.6-5.0); SODIUM 138 mmol/L (132-148); TOTAL PROTEIN 6.8 g/dL (5.8-8.3)
[2017-08-30] MEDS: BOSENTAN 125 MG PO SCH ×2 (09:01→17:40)
[2017-08-30] MEDS: diltiaZEM 300 mg/24 Hours CD Cap PO SCH (09:02)
[2017-08-30] MEDS: POLYETHYLENE GLYCOL 3350 17 GM/Dose PACKET PO SCH (09:06)
--- NOTE | 2017-08-30 10:15 | PN ---
DATE: PULMONARY NOTE SUBJECTIVE: The patient appears comfortable this morning. He is out of bed, sitting in the chair. He is not short of breath. OBJECTIVE: VITAL SIGNS: Temperature is 98.1, pulse 66, respirations 18/20, blood pressure 121/78. Oxygen saturation on nasal cannula is 96%. HEENT: Normocephalic, atraumatic. NECK: No JVD. CARDIOVASCULAR: Systolic ejection murmur at the lower left sternal border. No S3 gallop. LUNGS: Minimal crackles at the left lower lobe. Minimal rhonchi. No wheezing. EXTREMITIES: Mild edema. No cyanosis, no clubbing. Calves are nontender to palpation. GASTROINTESTINAL: Abdomen is soft, nontender and nondistended. Bowel sounds are positive. SKIN: No acute rash. NEUROLOGIC: Limited at the present time. IMPRESSION: 1. Left lower lobe pneumonia. 2. Acute bronchitis. 3. End-stage chronic obstructive pulmonary disease, on home oxygen. 4. Left upper lobe lung mass. 5. Pulmonary hypertension. 6. Coronary artery disease. PLAN: The patient appears comfortable this morning. He is not short of breath at rest. He is out of bed, sitting in the chair. He states to feeling much better overall. On physical exam, his bronchospasm continues to slowly resolve. In addition, there is no significant alveolar-arterial gradient. I will continue the current nebulizer treatments and oral steroids (decreased yesterday) for now. The patient also remains on his Tracleer for his pulmonary hypertension. The patient is now off antibiotic therapy - as per Infectious Disease. Input by Dr. Carreon is noted. There are no temperatures noted. There is a mild leukocytosis - which may be partly due to the steroids. Clinical status of the patient is certainly improved - compared to the initial presentation. However, again, the future status/prognosis for this chronically ill patient remains poor. All are aware. I will discuss the above with the attending physician. Fabricio Edmond MD MTDD
--- NOTE | 2017-08-30 10:46 | CP.PCM.PN ---
<Donya Ovalles - Last Filed: 08/30/17 12:07> Subjective - Date & Time of Evaluation Date of Evaluation: 08/30/17 Time of Evaluation: 10:44 - Subjective Subjective: Hospitalist Service Progress Note: Patient seen and examined at bedside. Per nursing no acute events overnight. Patient is doing well, without complaints at this time. Denies headaches, dizziness, cp, palpitations, sob, abdominal pain, urinary symptoms, changes in bowel habits. Objective - Vital Signs/Intake and Output Vital Signs (last 24 hours): Temp Pulse Resp BP Pulse Ox 98.1 F 66 20 121/78 96 08/30/17 06:00 08/30/17 09:02 08/30/17 06:00 08/30/17 09:03 08/30/17 06:00 - Medications Medications: Current Medications Acetaminophen (Tylenol 325mg Tab) 650 mg PO Q6H PRN; Protocol PRN Reason: Pain, moderate (4-7) Last Admin: 08/30/17 05:30 Dose: 650 mg Albuterol/Ipratropium (Duoneb 3 Mg/0.5 Mg (3 Ml) Ud) 3 ml IH Q2H PRN; Protocol PRN Reason: Shortness of Breath Albuterol/Ipratropium (Duoneb 3 Mg/0.5 Mg (3 Ml) Ud) 3 ml IH [id number] SYDNEY PRN Reason: Protocol Last Admin: 08/30/17 07:17 Dose: 3 ml Cyanocobalamin (Vitamin B12 1000 Mcg Tab) 1,000 mcg PO DAILY [place]NEY PRN Reason: Protocol Last Admin: 08/30/17 09:03 Dose: 1,000 mcg Diltiazem HCl (Cardizem Cd) 300 mg PO DAILY [place] PRN Reason: Protocol Last Admin: 08/30/17 09:02 Dose: 300 mg Docusate Sodium (Colace) 100 mg PO TID [place]DNEY PRN Reason: Protocol Last Admin: 08/30/17 09:02 Dose: Not Given Furosemide (Lasix) 40 mg PO DAILY [place]NEY PRN Reason: Protocol Last Admin: 08/30/17 09:03 Dose: 40 mg Insulin Human Lispro (Humalog Med) 0 units SC ACHS SYDNEY PRN Reason: Protocol Last Admin: 08/30/17 06:34 Dose: Not Given (Bosentan [Tracleer] (125 Mg) 125 mg PO BID [facility] Last Admin: 08/30/17 09:01 Dose: 125 mg Pantoprazole Sodium (Protonix Ec Tab) 40 mg PO 0600 [facility] Last Admin: 08/30/17 05:26 Dose: 40 mg Polyethylene Glycol (Miralax) 17 gm PO DAILY [facility] PRN Reason: Protocol Last Admin: 08/30/17 09:06 Dose: Not Given Prednisone (Prednisone Tab) 15 mg PO DAILY [facility] Last Admin: 08/30/17 09:04 Dose: 15 mg - Labs Labs: 08/30/17 06:00 08/30/17 06:00 - Constitutional Appears: Non-toxic, No Acute Distress, Older Than Stated Age, Chronically Ill - Head Exam Head Exam: ATRAUMATIC, NORMAL INSPECTION - Eye Exam Eye Exam: EOMI, Normal appearance Pupil Exam: NORMAL ACCOMODATION - ENT Exam ENT Exam: Mucous Membranes Moist - Neck Exam Neck Exam: Full ROM - Respiratory Exam Respiratory Exam: Decreased Breath Sounds, Wheezes, NORMAL BREATHING PATTERN. absent: Rales, Rhonchi - Cardiovascular Exam Cardiovascular Exam: Irregular Rhythm, +S1, +S2 - GI/Abdominal Exam GI & Abdominal Exam: Soft. absent: Guarding, Rigid, Tenderness, Rebound - Extremities Exam Extremities Exam: absent: Calf Tenderness Additional comments: scaling plaques b/l LE - Back Exam Back Exam: NORMAL INSPECTION - Neurological Exam Neurological Exam: Alert, Awake, Oriented x3 - Psychiatric Exam Psychiatric exam: Normal Affect, Normal Mood - Skin Skin Exam: Normal Color, Warm Assessment and Plan - Assessment and Plan (Free Text) Assessment: Patient is a 72 year old male with past medical history of legal blindness, severe COPD (on 4L of O2 at home), pulmonary hypertension, obstructive sleep apnea on BIPAP, psoriasis, HTN, NIDDM and CAD (s/p stents) a who was brought by patients niece for evaluation of fever, dyspnea, productive cough and generalized weakness and found to have HCAP, COPD exacerbation and ESBL UTI. Plan: 1. COPD Exacerbation - c/w Duoneb q2h prn and q6h scheduled - c/w prednisone - c/w oxygen in daytime; BIPAP at night - Pulm on consult, f/u recommendations 2. Pneumonia - Elevated WBC likely due to steroids - Completed merrem for 11 days - ID on consult, f/u recommendations 3. UTI - Elevated WBC likely due to steroids - Doxycycline and meropenem day #11- completed - CT abd/pelvis showing no acute intraabdominal pathology or abscess - Infectious disease consulted- recommendations appreciated - PSA is WNL - Follow with urology outpatient 4. Right Elbow Pain, Right Lower Back Discomfort - patient has Full ROM and is NTTP in either area - positional relief encouraged - pain control with tylenol as needed 5. Atrial fibrillation - c/w Cardizem 300mg daily - not on AC at home- high fall risk 6. Diabetes - ISS - Accuchecks ACHS - Carb consistent diet 7. History of Anemia - Hgb trended, reviewed, and appreciated - at baseline - will monitor via CBC 8. History of Pulmonary HTN - c/w home bosentan - monitor closely 9. History of Diastolic CHF - C/w Lasix 10. Constipation - c/w miralax and colace GI/DVT PPx - Protonix - SCDs <Andriy Reyes - Last Filed: 08/30/17 12:31> Objective - Vital Signs/Intake and Output Vital Signs (last 24 hours): Temp Pulse Resp BP Pulse Ox 98.1 F 66 20 121/78 96 08/30/17 06:00 08/30/17 09:02 08/30/17 06:00 08/30/17 09:03 08/30/17 06:00 - Medications Medications: Current Medications Acetaminophen (Tylenol 325mg Tab) 650 mg PO Q6H PRN; Protocol PRN Reason: Pain, moderate (4-7) Last Admin: 08/30/17 05:30 Dose: 650 mg Albuterol/Ipratropium (Duoneb 3 Mg/0.5 Mg (3 Ml) Ud) 3 ml IH Q2H PRN; Protocol PRN Reason: Shortness of Breath Albuterol/Ipratropium (Duoneb 3 Mg/0.5 Mg (3 Ml) Ud) 3 ml IH [id number] SYDNYE PRN Reason: Protocol Last Admin: 08/30/17 07:17 Dose: 3 ml Cyanocobalamin (Vitamin B12 1000 Mcg Tab) 1,000 mcg PO DAILY [place]NEY PRN Reason: Protocol Last Admin: 08/30/17 09:03 Dose: 1,000 mcg Diltiazem HCl (Cardizem Cd) 300 mg PO DAILY [place] PRN Reason: Protocol Last Admin: 08/30/17 09:02 Dose: 300 mg Docusate Sodium (Colace) 100 mg PO TID [place] PRN Reason: Protocol Last Admin: 08/30/17 09:02 Dose: Not Given Furosemide (Lasix) 40 mg PO DAILY [place] PRN Reason: Protocol Last Admin: 08/30/17 09:03 Dose: 40 mg Insulin Human Lispro (Humalog Med) 0 units SC ACHS SY[place] PRN Reason: Protocol Last Admin: 08/30/17 06:34 Dose: Not Given (Bosentan [Tracleer] (125 Mg) 125 mg PO BID [place] Last Admin: 08/30/17 09:01 Dose: 125 mg Pantoprazole Sodium (Protonix Ec Tab) 40 mg PO 0600 [facility] Last Admin: 08/30/17 05:26 Dose: 40 mg Polyethylene Glycol (Miralax) 17 gm PO DAILY [place] PRN Reason: Protocol Last Admin: 08/30/17 09:06 Dose: Not Given Prednisone (Prednisone Tab) 15 mg PO DAILY [facility] Last Admin: 08/30/17 09:04 Dose: 15 mg - Labs Labs: 08/30/17 06:00 08/30/17 06:00 Attending/Attestation - Attestation I have personally seen and examined this patient.: Yes I have fully participated in the care of the patient.: Yes I have reviewed all pertinent clinical information, including history, physical exam and plan: Yes Notes (Text): 08/30/17 12:30 Attending note; Patient seen and examined with resident in TCU. Patient is a 72 year old male with past medical history of legal blindness, severe COPD (on 4L of O2 at home), pulmonary hypertension, obstructive sleep apnea on BIPAP, psoriasis, HTN, NIDDM and CAD (s/p stents) a who was brought by patients niece for evaluation of fever, dyspnea, productive cough and generalized weakness and found to have HCAP, COPD exacerbation and ESBL UTI. Significant improvement in respiratory status. Continue oxygen during daytime and BiPAP at night. Continue duonebs, prednisone. currently on tapering dose of by mouth prednisone. Pulmonary evaluation appreciated. ESBL UTI ; completed 10 days' course of doxycycline and IV meropenem. PSA is normal .Urology consult appreciated. CT abdomen and pelvis is negative for any abscess. Continue cardizem, bosentan and lasix. Patient is DNI DNR. Long-term prognosis is poor. Upon discharge patient will follow up with and Dr Hale .
--- NOTE | 2017-08-30 11:49 | PN ---
DATE: 08/30/2017 SUBJECTIVE: The patient is in bed, in no acute distress, nontoxic. OBJECTIVE: VITAL SIGNS: On exam, temperature is 98, blood pressure is 120/70, respiratory rate of 17 and heart rate of 77. EXAMINATION OF HEENT: Unremarkable. NECK: Supple. LUNGS: Decreased breath sounds. HEART EXAM: Normal S1 and S2. ABDOMINAL EXAMINATION: Soft and nontender. LABORATORY EXAMINATION: Reveals his white count is 17,300; hemoglobin of 10 and platelets of 284. BUN of 25 and creatinine of 0.9. Microbiology: Sputum with E. coli, urine with E. coli and ESBL in the urine also and the sputum. REVIEW OF ORDERS: The patient is on prednisone. ASSESSMENT AND PLAN: A 72-year-old male, seen earlier this morning in #[id number] with severe sepsis due to left lower lobe pneumonia, urinary tract infection with extended-spectrum beta-lactamase, improving; chronic obstructive lung disease; hypertension; gastroesophageal reflux disease; coronary artery disease, status post percutaneous coronary intervention and stent placement in a patient with diabetes and obstructive sleep apnea, currently off of antibiotics. The patient has had 11 days of meropenem, now off of antibiotics, afebrile; however, he is at risk for developing nosocomial infections. Jurgen Carreon MD
[2017-08-31] MEDS: Albuterol-Ipratrop 3 mg / 0.5 (3 ml) UD IH SCH ×4 (01:41→20:53)
[2017-08-31] MEDS: Pantoprazole 40 mg EC Tab PO SCH (05:34)
[2017-08-31] MEDS: Insulin Lispro (humaLOG) MEDIUM Coverage SC SCH ×4 (06:59→21:56)
[2017-08-31 07:06] LABS: BASO # 0.03 K/mm3 (0.0-2.0); BASO % 0.2 % (0.0-3.0); EOS # 0.3 (0.0-0.7); EOS % 1.9 % (1.5-5.0); GRAN # 13.72 (1.4-6.5); GRAN % 79.9 % (50.0-68.0); HEMATOCRIT 36.5 % (42.0-52.0); LYMPH # 1.9 (1.2-3.4); LYMPH % 11.3 % (22.0-35.0); MEAN CELL VOLUME 83.5 fl (80.0-105.0); MEAN CORPUSCULAR HEMOGLOBIN 24.5 pg (25.0-35.0); MEAN CORPUSCULAR HGB CONC 29.3 g/dl (31.0-37.0); MEAN PLATELET VOLUME 9.8 fl (7.0-11.0); MONO # 1.2 (0.1-0.6); MONO % 6.7 % (1.0-6.0); RED CELL DISTRIBUTION WIDTH 16.3 % (11.5-14.5); WHITE BLOOD COUNT 17.2 10^3/ul (4.5-11.0)
[2017-08-31 07:21] LABS: ALKALINE PHOSPHATASE 120 U/L (38-126); ALT/SGPT 36 U/L (7-56); AST/SGOT 29 U/L (17-59); BILIRUBIN,TOTAL 0.4 mg/dL (0.2-1.3); BLOOD UREA NITROGEN 23 mg/dL (7-21); CALCIUM 9.6 mg/dL (8.4-10.5); CARBON DIOXIDE 38 mmol/L (21-33); CHLORIDE 94 mmol/L (98-107); GFR AFRICAN-AMERICAN > 60; GLUCOSE,RANDOM 126 mg/dL (70-110); SODIUM 139 mmol/L (132-148); TOTAL PROTEIN 6.7 g/dL (5.8-8.3)
--- NOTE | 2017-08-31 08:40 | PN ---
PULMONARY NOTE DATE: 08/31/2017 SUBJECTIVE: The patient appears comfortable this morning. He is not short of breath at rest. OBJECTIVE: VITAL SIGNS (last noted in the computer): Temperature is 97.9, pulse 72, respirations 18, blood pressure 115/65. Oxygen saturation on nasal cannula is 99%. HEENT: Normocephalic, atraumatic. No JVD. CARDIOVASCULAR: Systolic ejection murmur at the lower left sternal border. No S3 gallop. LUNGS: Minimal crackles at the left lower lobe. Minimal/less rhonchi. No wheezing. EXTREMITIES: Mild edema. No cyanosis. No clubbing. Calves are nontender to palpation. GI: Abdomen is soft, nontender, and nondistended. Bowel sounds are positive. SKIN: No acute rash. NEUROLOGIC: Limited at the present time. IMPRESSION: 1. Left lower lobe pneumonia. 2. Acute bronchitis. 3. End-stage chronic obstructive pulmonary disease, on home oxygen. 4. Left upper lobe lung mass. 5. Pulmonary hypertension. 6. Coronary artery disease. PLAN: The patient appears more comfortable this morning. He is not short of breath at rest. He is out of bed, sitting in the chair. He does state to feeling much better overall. On physical exam, his bronchospasm continues to slowly resolve. In addition, the alveolar arterial gradient also continues to resolve. I will continue the current nebulizer treatments and oral steroids (decreased yesterday) for now. The patient also remains on his Tracleer for his pulmonary hypertension. The patient is now off antibiotic therapy - as per Infectious Disease. Input by Dr. Carreon is noted. Clinical status of the patient is certainly improved - compared to the initial presentation. However, again, the future status/prognosis for this patient does remain poor. All are aware. I will discuss the above with the attending physician. Fabricio Edmond MD MTDTad
[2017-08-31] MEDS: POLYETHYLENE GLYCOL 3350 17 GM/Dose PACKET PO SCH (09:56)
[2017-08-31] MEDS: diltiaZEM 300 mg/24 Hours CD Cap PO SCH (09:56)
[2017-08-31] MEDS: BOSENTAN 125 MG PO SCH ×2 (09:57→17:17)
[2017-08-31] MEDS: Hydrocerin(120 gm) TOP SCH ×2 (12:07→17:13)
[2017-08-31] MEDS: Hydrocortisone 1% Cream (30 GM) TOP SCH ×2 (12:07→17:12)
[2017-09-01] MEDS: Albuterol-Ipratrop 3 mg / 0.5 (3 ml) UD IH SCH ×4 (01:20→19:17)
[2017-09-01] MEDS: Insulin Lispro (humaLOG) MEDIUM Coverage SC SCH ×4 (06:37→22:57)
[2017-09-01] MEDS: Pantoprazole 40 mg EC Tab PO SCH (06:37)
[2017-09-01 07:13] LABS: BASO # 0.02 K/mm3 (0.0-2.0); BASO % 0.1 % (0.0-3.0); EOS # 0.3 (0.0-0.7); EOS % 1.9 % (1.5-5.0); GRAN # 13.59 (1.4-6.5); GRAN % 81.6 % (50.0-68.0); HEMATOCRIT 35.9 % (42.0-52.0); LYMPH # 1.6 (1.2-3.4); LYMPH % 9.7 % (22.0-35.0); MEAN CELL VOLUME 83.9 fl (80.0-105.0); MEAN CORPUSCULAR HEMOGLOBIN 24.8 pg (25.0-35.0); MEAN CORPUSCULAR HGB CONC 29.5 g/dl (31.0-37.0); MEAN PLATELET VOLUME 10.2 fl (7.0-11.0); MONO # 1.1 (0.1-0.6); MONO % 6.7 % (1.0-6.0); RED CELL DISTRIBUTION WIDTH 16.5 % (11.5-14.5); WHITE BLOOD COUNT 16.7 10^3/ul (4.5-11.0)
[2017-09-01 07:35] LABS: ALKALINE PHOSPHATASE 120 U/L (38-126); ALT/SGPT 37 U/L (7-56); AST/SGOT 20 U/L (17-59); BILIRUBIN,TOTAL 0.5 mg/dL (0.2-1.3); BLOOD UREA NITROGEN 22 mg/dL (7-21); CALCIUM 9.7 mg/dL (8.4-10.5); CARBON DIOXIDE 37 mmol/L (21-33); CHLORIDE 95 mmol/L (95-110); GFR AFRICAN-AMERICAN > 60; GLUCOSE,RANDOM 137 mg/dL (70-110); SODIUM 138 mmol/L (132-148); TOTAL PROTEIN 6.8 g/dL (5.8-8.3)
--- NOTE | 2017-09-01 08:16 | PN ---
SUBJECTIVE: The patient appears comfortable this morning. He is out of bed, sitting in a chair. He is not short of breath. PHYSICAL EXAMINATION: VITAL SIGNS (Last noted in the computer): Temperature is 99.5, pulse 71, respirations 18/20, blood pressure 112/58. Oxygen saturation on nasal cannula is 95%. HEENT: Normocephalic, atraumatic. NECK: No JVD. CARDIOVASCULAR: Systolic ejection murmur at the lower left sternal border. No S3 gallop. LUNGS: Minimal/less crackles at the left lower lobe. Minimal/less rhonchi. No wheezing. EXTREMITIES: Mild edema. No cyanosis, no clubbing. Calves are nontender to palpation. GASTROINTESTINAL: Abdomen is soft, nontender and nondistended. Bowel sounds are positive. SKIN: No acute rash. NEUROLOGIC: Limited at the present time. IMPRESSION: 1. Left lower lobe pneumonia. 2. Acute bronchitis. 3. End-stage chronic obstructive pulmonary disease, on home oxygen. 4. Left upper lobe lung mass. 5. Pulmonary hypertension. 6. Coronary artery disease. PLAN: The patient appears comfortable this morning. He is out of bed, sitting in the chair. He is not short of breath at rest. He does state to feeling much, much better overall. On physical exam, his bronchospasm is now minimal. In addition, there is no significant alveolar-arterial gradient. I will continue the current nebulizer treatments and low-dose oral steroids for now. The patient also remains on his Tracleer-for his pulmonary hypertension. Input by Dr. Carreon is also noted. Clinical status of the patient is certainly improved-compared to the initial presentation. However, again, the future status/prognosis of this patient does remain poor. All are aware. I will discuss the above with the attending physician. Fabricio Edmond MD MTDD
[2017-09-01] MEDS: diltiaZEM 300 mg/24 Hours CD Cap PO SCH (09:52)
[2017-09-01] MEDS: Hydrocerin(120 gm) TOP SCH ×2 (09:54→18:42)
[2017-09-01] MEDS: Hydrocortisone 1% Cream (30 GM) TOP SCH ×2 (09:54→18:41)
[2017-09-01] MEDS: POLYETHYLENE GLYCOL 3350 17 GM/Dose PACKET PO SCH (09:55)
[2017-09-01] MEDS: BOSENTAN 125 MG PO SCH ×2 (11:18→18:40)
--- NOTE | 2017-09-01 11:24 | CP.PCM.PN ---
Subjective - Date & Time of Evaluation Date of Evaluation: 09/01/17 Time of Evaluation: 11:20 - Subjective Subjective: Comfortable in bed, not in distress, afebrile. Objective - Vital Signs/Intake and Output Vital Signs (last 24 hours): Temp Pulse Resp BP Pulse Ox 99.5 F 71 20 112/58 L 95 08/31/17 17:43 08/31/17 17:43 08/31/17 17:43 08/31/17 17:43 08/31/17 17:43 Intake and Output: 09/01/17 09/01/17 06:59 18:59 Intake Total 550 Balance 550 - Medications Medications: Current Medications Acetaminophen (Tylenol 325mg Tab) 650 mg PO Q6H PRN; Protocol PRN Reason: Pain, moderate (4-7) Last Admin: 09/01/17 06:54 Dose: 650 mg Albuterol/Ipratropium (Duoneb 3 Mg/0.5 Mg (3 Ml) Ud) 3 ml IH Q2H PRN; Protocol PRN Reason: Shortness of Breath Albuterol/Ipratropium (Duoneb 3 Mg/0.5 Mg (3 Ml) Ud) 3 ml IH [id number] [facility] PRN Reason: Protocol Last Admin: 09/01/17 07:23 Dose: 3 ml Cyanocobalamin (Vitamin B12 1000 Mcg Tab) 1,000 mcg PO DAILY [facility] PRN Reason: Protocol Last Admin: 08/31/17 09:56 Dose: 1,000 mcg Diltiazem HCl (Cardizem Cd) 300 mg PO DAILY [facility] PRN Reason: Protocol Last Admin: 08/31/17 09:56 Dose: 300 mg Docusate Sodium (Colace) 100 mg PO TID [facility] PRN Reason: Protocol Last Admin: 08/31/17 17:12 Dose: Not Given Furosemide (Lasix) 40 mg PO DAILY [facility] PRN Reason: Protocol Last Admin: 08/31/17 09:56 Dose: 40 mg Heparin Sodium (Porcine) (Heparin) 5,000 units SC Q12 [facility] PRN Reason: Protocol Last Admin: 08/31/17 21:35 Dose: 5,000 units Hydrocortisone (Cortizone 1% Cream) 0 gm TOP BID [facility] Last Admin: 08/31/17 17:12 Dose: 1 applic Insulin Human Lispro (Humalog Med) 0 units SC ACHS [facility] PRN Reason: Protocol Last Admin: 09/01/17 06:37 Dose: Not Given Multi-Ingredient Cream (Hydrocerin Cream) 0 ea TOP BID [facility] Last Admin: 08/31/17 17:13 Dose: 1 applic (Bosentan [Tracleer] (125 Mg) 125 mg PO BID [facility] Last Admin: 08/31/17 17:17 Dose: 125 mg Pantoprazole Sodium (Protonix Ec Tab) 40 mg PO 0600 [facility] Last Admin: 09/01/17 06:37 Dose: 40 mg Polyethylene Glycol (Miralax) 17 gm PO DAILY [facility] PRN Reason: Protocol Last Admin: 08/31/17 09:56 Dose: 17 gm Prednisone (Prednisone Tab) 15 mg PO DAILY [facility] Last Admin: 08/31/17 09:55 Dose: 15 mg - Labs Labs: 09/01/17 07:00 09/01/17 07:00 - Constitutional Appears: Non-toxic, No Acute Distress - Head Exam Head Exam: NORMAL INSPECTION - ENT Exam ENT Exam: Mucous Membranes Moist - Neck Exam Neck Exam: absent: Meningismus - Respiratory Exam Respiratory Exam: Decreased Breath Sounds - Cardiovascular Exam Cardiovascular Exam: +S1, +S2 - GI/Abdominal Exam GI & Abdominal Exam: Soft. absent: Tenderness Assessment and Plan - Assessment and Plan (Free Text) Plan: Assessment S/P severe sepsis due to left lower lobe pneumonia and UTI with ESBL E. coli consider COPD exacerbation HTN COPD GERD coronary artery disease S/P PCI and stents placed DM osbtructive sleep apnea Plan S/P Doxycycline and Merrem x 11 days - PSA is only 1.6 - continue to monitor off antibiotics since he is at risk for hospital-acquired infections Reviewed Dr. Edmond's recommendations - patient to continue on PO Prednisone
--- NOTE | 2017-09-01 11:33 | CP.PCM.PN ---
<Dmitri Zurita - Last Filed: 09/01/17 11:29> Subjective - Date & Time of Evaluation Date of Evaluation: 09/01/17 Time of Evaluation: 06:00 - Subjective Subjective: Patient seen and examined in chair. Denied any acute events overnight. Patient is doing well, without complaints at this time and knows he will be going home tomorrow. Denies any CP, SOB, dizziness, headache, fever sore or any other complaints. Objective - Vital Signs/Intake and Output Vital Signs (last 24 hours): Temp Pulse Resp BP Pulse Ox 98.1 F 69 20 132/70 96 09/01/17 10:12 09/01/17 10:12 09/01/17 10:12 09/01/17 10:12 09/01/17 10:12 Intake and Output: 09/01/17 09/01/17 06:59 18:59 Intake Total 550 Balance 550 - Medications Medications: Current Medications Acetaminophen (Tylenol 325mg Tab) 650 mg PO Q6H PRN; Protocol PRN Reason: Pain, moderate (4-7) Last Admin: 09/01/17 06:54 Dose: 650 mg Albuterol/Ipratropium (Duoneb 3 Mg/0.5 Mg (3 Ml) Ud) 3 ml IH Q2H PRN; Protocol PRN Reason: Shortness of Breath Albuterol/Ipratropium (Duoneb 3 Mg/0.5 Mg (3 Ml) Ud) 3 ml IH [id number] [facility] PRN Reason: Protocol Last Admin: 09/01/17 07:23 Dose: 3 ml Cyanocobalamin (Vitamin B12 1000 Mcg Tab) 1,000 mcg PO DAILY [facility] PRN Reason: Protocol Last Admin: 09/01/17 09:56 Dose: 1,000 mcg Diltiazem HCl (Cardizem Cd) 300 mg PO DAILY [facility] PRN Reason: Protocol Last Admin: 09/01/17 09:52 Dose: 300 mg Docusate Sodium (Colace) 100 mg PO TID [facility] PRN Reason: Protocol Last Admin: 09/01/17 09:53 Dose: Not Given Furosemide (Lasix) 40 mg PO DAILY [facility] PRN Reason: Protocol Last Admin: 09/01/17 09:54 Dose: 40 mg Heparin Sodium (Porcine) (Heparin) 5,000 units SC Q12 [facility] PRN Reason: Protocol Last Admin: 09/01/17 11:17 Dose: 5,000 units Hydrocortisone (Cortizone 1% Cream) 0 gm TOP BID [facility] Last Admin: 09/01/17 09:54 Dose: 1 applic Insulin Human Lispro (Humalog Med) 0 units SC ACHS [facility] PRN Reason: Protocol Last Admin: 09/01/17 11:17 Dose: Not Given Multi-Ingredient Cream (Hydrocerin Cream) 0 ea TOP BID [facility] Last Admin: 09/01/17 09:54 Dose: 1 applic (Bosentan [Tracleer] (125 Mg) 125 mg PO BID [facility] Pantoprazole Sodium (Protonix Ec Tab) 40 mg PO 0600 [facility] Last Admin: 09/01/17 06:37 Dose: 40 mg Polyethylene Glycol (Miralax) 17 gm PO DAILY [facility] PRN Reason: Protocol Last Admin: 09/01/17 09:55 Dose: Not Given Prednisone (Prednisone Tab) 15 mg PO DAILY [facility] Last Admin: 09/01/17 09:55 Dose: 15 mg - Labs Labs: 09/01/17 07:00 09/01/17 07:00 - Constitutional Appears: Non-toxic, No Acute Distress - Head Exam Head Exam: ATRAUMATIC, NORMAL INSPECTION, NORMOCEPHALIC - Eye Exam Pupil Exam: NORMAL ACCOMODATION - ENT Exam ENT Exam: Mucous Membranes Moist, Normal Exam - Neck Exam Neck Exam: Full ROM, Normal Inspection. absent: Lymphadenopathy, Tenderness - Respiratory Exam Respiratory Exam: NORMAL BREATHING PATTERN Additional comments: Very minimal rhonchi at lower lung bases - Cardiovascular Exam Cardiovascular Exam: Irregular Rhythm, +S1, +S2 ( ) - GI/Abdominal Exam GI & Abdominal Exam: Soft. absent: Distended - Extremities Exam Extremities Exam: absent: Tenderness Additional comments: psoriasis plaques bilaterally - Back Exam Back Exam: NORMAL INSPECTION - Neurological Exam Neurological Exam: Alert, Awake, Oriented x3 Assessment and Plan - Assessment and Plan (Free Text) Assessment: Patient is a 72 year old male with past medical history of legal blindness, severe COPD (on 4L of O2 at home), pulmonary hypertension, obstructive sleep apnea on BIPAP, psoriasis, HTN, NIDDM and CAD (s/p stents) a who was brought by patients niece for evaluation of fever, dyspnea, productive cough and generalized weakness and found to have HCAP, COPD exacerbation and ESBL UTI. He is being treated for COPD exacerbation, pneumonia and UTI. Plan: 1. COPD Exacerbation - continue Duoneb q2h prn and q6h scheduled - continue prednisone 15 mg - continue oxygen in daytime; BIPAP at night - Pulmonary Consult: Mayito: continue nebulizer treatments, continue low dose steroids 2. Pneumonia - Elevated WBC likely due to steroids - Completed merrem for 11 days - ID on consult: Natalie: continue to monitor off antibiotics since he is at risk for hospital-acquired infections 3. UTI - Elevated WBC likely due to steroids - Doxycycline and meropenem day #11- completed - CT abd/pelvis showing no acute intraabdominal pathology or abscess - Infectious disease consulted- recommendations appreciated - PSA is WNL - Follow with urology as an outpatient 4. Right Elbow Pain, Right Lower Back Discomfort - patient has Full ROM and is NTTP in either area - positional relief encouraged - pain control with tylenol as needed 5. Atrial fibrillation - c/w Cardizem 300mg daily - not on anticoagulation at home- high fall risk 6. Diabetes - ISS - Accuchecks ACHS - Carb consistent diet 7. History of Anemia - Hgb 10.6 - will monitor via CBC 8. History of Pulmonary HTN - c/w home bosentan - monitor closely 9. History of Diastolic CHF - C/w Lasix 10. Constipation - c/w miralax and colace 11. Psoriasis -Continue on Eucerin -Continue 1% hydrocortisone GI/DVT PPx - Protonix - SCDs <Jamie Fairchild - Last Filed: 09/01/17 18:28> Objective - Vital Signs/Intake and Output Vital Signs (last 24 hours): Temp Pulse Resp BP Pulse Ox 99.3 F 74 26 H 99/56 L 93 L 09/01/17 16:25 09/01/17 16:25 09/01/17 16:25 09/01/17 16:25 09/01/17 16:25 Intake and Output: 09/01/17 09/01/17 06:59 18:59 Intake Total 550 Balance 550 - Medications Medications: Current Medications Acetaminophen (Tylenol 325mg Tab) 650 mg PO Q6H PRN; Protocol PRN Reason: Pain, moderate (4-7) Last Admin: 09/01/17 06:54 Dose: 650 mg Albuterol/Ipratropium (Duoneb 3 Mg/0.5 Mg (3 Ml) Ud) 3 ml IH Q2H PRN; Protocol PRN Reason: Shortness of Breath Albuterol/Ipratropium (Duoneb 3 Mg/0.5 Mg (3 Ml) Ud) 3 ml IH [id number] [place] PRN Reason: Protocol Last Admin: 09/01/17 13:05 Dose: 3 ml Cyanocobalamin (Vitamin B12 1000 Mcg Tab) 1,000 mcg PO DAILY [facility] PRN Reason: Protocol Last Admin: 09/01/17 09:56 Dose: 1,000 mcg Diltiazem HCl (Cardizem Cd) 300 mg PO DAILY [facility] PRN Reason: Protocol Last Admin: 09/01/17 09:52 Dose: 300 mg Docusate Sodium (Colace) 100 mg PO TID [facility] PRN Reason: Protocol Last Admin: 09/01/17 09:53 Dose: Not Given Furosemide (Lasix) 40 mg PO DAILY [facility] PRN Reason: Protocol Last Admin: 09/01/17 09:54 Dose: 40 mg Heparin Sodium (Porcine) (Heparin) 5,000 units SC Q12 [facility] PRN Reason: Protocol Last Admin: 09/01/17 11:17 Dose: 5,000 units Hydrocortisone (Cortizone 1% Cream) 0 gm TOP BID [facility] Last Admin: 09/01/17 09:54 Dose: 1 applic Insulin Human Lispro (Humalog Med) 0 units SC ACHS [facility] PRN Reason: Protocol Last Admin: 09/01/17 11:17 Dose: Not Given Multi-Ingredient Cream (Hydrocerin Cream) 0 ea TOP BID [facility] Last Admin: 09/01/17 09:54 Dose: 1 applic (Bosentan [Tracleer] (125 Mg) 125 mg PO BID [facility] Pantoprazole Sodium (Protonix Ec Tab) 40 mg PO 0600 [facility] Last Admin: 09/01/17 06:37 Dose: 40 mg Polyethylene Glycol (Miralax) 17 gm PO DAILY [facility] PRN Reason: Protocol Last Admin: 09/01/17 09:55 Dose: Not Given Prednisone (Prednisone Tab) 15 mg PO DAILY [facility] Last Admin: 09/01/17 09:55 Dose: 15 mg - Labs Labs: 09/01/17 07:00 09/01/17 07:00 Attending/Attestation - Attestation I have personally seen and examined this patient.: Yes I have fully participated in the care of the patient.: Yes I have reviewed all pertinent clinical information, including history, physical exam and plan: Yes Notes (Text): I have seen and examined the patient at bedside. Briefly this is 72 year old male with history of legal blindness, severe COPD (on 4L of O2 at home), pulmonary hypertension, obstructive sleep apnea on BIPAP, psoriasis, HTN, NIDDM and CAD (s/p stents) a who was brought by patients niece for evaluation of fever , dyspnea, productive cough and generalized weakness and found to have HCAP, COPD exacerbation and ESBL UTI. There is significant improvement in respiratory status. Continue oxygen during daytime and BiPAP at night. Continue duonebs and prednisone. He has completed antibiotics course of ESBL UTI. Urology consult appreciated. CT abdomen and pelvis is negative for any abscess. Continue cardizem, bosentan and lasix. Patient is DNI DNR. Long-term prognosis is poor. Upon discharge patient will follow up with and Dr Hale. Plan is dc home tomorrow. Dr Jamie Fairchild
[2017-09-02] MEDS: Albuterol-Ipratrop 3 mg / 0.5 (3 ml) UD IH SCH ×3 (03:00→13:07)
[2017-09-02] MEDS: Insulin Lispro (humaLOG) MEDIUM Coverage SC SCH ×2 (07:04→11:17)
[2017-09-02] MEDS: Pantoprazole 40 mg EC Tab PO SCH (07:42)
--- NOTE | 2017-09-02 09:35 | PN ---
DATE: 09/02/2017 PULMONARY PROGRESS NOTE SUBJECTIVE: The patient appears comfortable this morning. He is out of bed, sitting in the chair. He is not short of breath. He states he is feeling much better overall. PHYSICAL EXAMINATION: ]VITAL SIGNS: Last temperature recorded 99.3, pulse this morning 80, respirations of 18/20 and the last blood pressure recorded in the chart 99/56. Oxygen saturation on nasal cannula is between 93% to 96%. HEENT: Normocephalic and atraumatic. NECK: No JVD. CARDIOVASCULAR: Systolic ejection murmur at the lower left sternal border. No S3 gallop. LUNGS: Minimal crackles at the left lower lobe. Minimal rhonchi. No wheezing. EXTREMITIES: Mild edema. No cyanosis and no clubbing. Calves are nontender to palpation. GASTROINTESTINAL: Abdomen is soft, nontender and nondistended. Bowel sounds are positive. SKIN: No acute rash. NEUROLOGIC: Exam limited at the present time. IMPRESSION 1. Left lower lobe pneumonia. 2. Acute bronchitis. 3. End-stage chronic obstructive pulmonary disease, on home oxygen. 4. Left upper lobe lung mass. 5. Pulmonary hypertension. 6. Coronary artery disease. PLAN: The patient appears comfortable this morning. He is out of bed, sitting in the chair. He is not short of breath at rest. He does state to feeling much better overall. On physical exam, his bronchospasm is now minimal. In addition, there is no significant alveolar-arterial gradient. I will continue the current nebulizer treatments and low-dose oral steroids for now. I will also continue with the Tracleer--- for his pulmonary hypertension. The patient remains off antibiotic therapy - as per infectious disease. There are no temperatures noted. The last leukocytosis was decreased. The clinical status of the patient is significantly improved - compared to the initial presentation. However, again, the future status/prognosis for this patient does remain poor. All are aware. I will discuss the above with Dr. Fairchild. Fabricio Edmond MD [facility]
[2017-09-02 09:40] LABS: BASO # 0.02 K/mm3 (0.0-2.0); BASO % 0.1 % (0.0-3.0); EOS # 0.3 (0.0-0.7); EOS % 1.9 % (1.5-5.0); GRAN # 13.55 (1.4-6.5); GRAN % 81.9 % (50.0-68.0); HEMATOCRIT 36.5 % (42.0-52.0); LYMPH # 1.5 (1.2-3.4); LYMPH % 9.2 % (22.0-35.0); MEAN CELL VOLUME 83.9 fl (80.0-105.0); MEAN CORPUSCULAR HEMOGLOBIN 24.8 pg (25.0-35.0); MEAN CORPUSCULAR HGB CONC 29.6 g/dl (31.0-37.0); MEAN PLATELET VOLUME 10.6 fl (7.0-11.0); MONO # 1.2 (0.1-0.6); MONO % 6.9 % (1.0-6.0); RED CELL DISTRIBUTION WIDTH 16.2 % (11.5-14.5); WHITE BLOOD COUNT 16.6 10^3/ul (4.5-11.0)
[2017-09-02 09:52] LABS: ALKALINE PHOSPHATASE 119 U/L (38-126); ALT/SGPT 39 U/L (7-56); AST/SGOT 26 U/L (17-59); BILIRUBIN,TOTAL 0.5 mg/dL (0.2-1.3); BLOOD UREA NITROGEN 20 mg/dL (7-21); CARBON DIOXIDE 37 mmol/L (21-33); CHLORIDE 93 mmol/L (98-107); GFR AFRICAN-AMERICAN > 60; GLUCOSE,RANDOM 205 mg/dL (70-110); POTASSIUM 4.4 mmol/L (3.6-5.0); SODIUM 137 mmol/L (132-148)
[2017-09-02] MEDS: diltiaZEM 300 mg/24 Hours CD Cap PO SCH (10:45)
[2017-09-02] MEDS: POLYETHYLENE GLYCOL 3350 17 GM/Dose PACKET PO SCH (10:46)
[2017-09-02] MEDS: Hydrocortisone 1% Cream (30 GM) TOP SCH (10:46)
[2017-09-02] MEDS: Hydrocerin(120 gm) TOP SCH (10:46)
[2017-09-02] MEDS: BOSENTAN 125 MG PO SCH (10:53)
--- NOTE | 2017-09-02 11:15 | CP.PCM.DIS ---
<Dmitri Zurita - Last Filed: 09/03/17 14:02> Provider - Provider Date of Admission: 08/25/17 20:12 Attending physician: Jamie Fairchild MD Primary care physician: Jose C Ambrocio MD Consults: Pulmonary: Dr. Edmond ID: Dr. [email or web address] Time Spent in preparation of Discharge (in minutes): 70 Hospital Course - Lab Results Lab Results: Most Recent Lab Values WBC 16.6 10^3/ul (4.5-11.0) H 09/02/17 09:00 RBC 4.35 10^6/uL (3.5-6.1) 09/02/17 09:00 Hgb 10.8 g/dL (14.0-18.0) L 09/02/17 09:00 Hct 36.5 % (42.0-52.0) L 09/02/17 09:00 MCV 83.9 fl (80.0-105.0) 09/02/17 09:00 MCH 24.8 pg (25.0-35.0) L 09/02/17 09:00 MCHC 29.6 g/dl (31.0-37.0) L 09/02/17 09:00 RDW 16.2 % (11.5-14.5) H 09/02/17 09:00 Plt Count 213 10^3/uL (120.0-450.0) 09/02/17 09:00 MPV 10.6 fl (7.0-11.0) 09/02/17 09:00 Gran % 81.9 % (50.0-68.0) H 09/02/17 09:00 Lymph % (Auto) 9.2 % (22.0-35.0) L 09/02/17 09:00 [place] % (Auto) 6.9 % (1.0-6.0) H 09/02/17 09:00 Eos % (Auto) 1.9 % (1.5-5.0) 09/02/17 09:00 Baso % (Auto) 0.1 % (0.0-3.0) 09/02/17 09:00 Gran # 13.55 (1.4-6.5) H 09/02/17 09:00 Lymph # 1.5 (1.2-3.4) 09/02/17 09:00 [place] # 1.2 (0.1-0.6) H 09/02/17 09:00 Eos # 0.3 (0.0-0.7) 09/02/17 09:00 Baso # 0.02 K/mm3 (0.0-2.0) 09/02/17 09:00 Sodium 137 mmol/L (132-148) 09/02/17 09:00 Potassium 4.4 mmol/L (3.6-5.0) 09/02/17 09:00 Chloride 93 mmol/L (98-107) L 09/02/17 09:00 Carbon Dioxide 37 mmol/L (21-33) H 09/02/17 09:00 Anion Gap 11 (10-20) 09/02/17 09:00 BUN 20 mg/dL (7-21) 09/02/17 09:00 Creatinine 1.0 mg/dL (0.8-1.5) 09/02/17 09:00 Est GFR ( Amer) > 60 09/02/17 09:00 Est GFR (Non-Af Amer) > 60 09/02/17 09:00 POC Glucose (mg/dL) 117 mg/dL (65-110) H 09/01/17 11:15 Random Glucose 205 mg/dL (70-110) H 09/02/17 09:00 Calcium 10.0 mg/dL (8.4-10.5) 09/02/17 09:00 Total Bilirubin 0.5 mg/dL (0.2-1.3) 09/02/17 09:00 AST 26 U/L (17-59) 09/02/17 09:00 ALT 39 U/L (7-56) 09/02/17 09:00 Alkaline Phosphatase 119 U/L (38-126) 09/02/17 09:00 Total Protein 7.0 g/dL (5.8-8.3) 09/02/17 09:00 Albumin 3.5 g/dL (3.0-4.8) 09/02/17 09:00 Globulin 3.5 gm/dL 09/02/17 09:00 Albumin/Globulin Ratio 1.0 (1.1-1.8) L 09/02/17 09:00 - Hospital Course Hospital Course: Patient is a 72 year old male with past medical history of legal blindness, severe COPD (on 4L of O2 at home), pulmonary hypertension, obstructive sleep apnea on BIPAP, psoriasis, HTN, NIDDM and CAD (s/p stents) a who was brought by patients niece for evaluation of fever, dyspnea, productive cough and generalized weakness and found to have HCAP, COPD exacerbation and ESBL UTI. He was treated for COPD exacerbation, pneumonia and UTI. Duonebs were given, oral steroids administered as well. Oxygen was continued. Pulmonary was consulted and recommendations were followed. For Pneumonia patient completed meropenem for 11 days, ID was consulted. For the UTI patient received DOxy and meropenem. CT abdomen/pelvis was done and no abcess was found. Elbow xray was done for right elbow pain and tylenol was given for the pain. Patient was continued on home medications. Lower extremity ultrasound was done and negative. Hemoglobin and blood was monitored. Patient was given medicine for psoriasis and the itchiness. Patient received PT/OT in the TCU. Patients breathing improved over the hospital stay and was discharged. I spoke to the patients niece and she was aware of the plan. I contacted the pharmacy to see if he needed any new prescriptions. He was given new prescriptions for whatever was needed. All questions and concerns were addressed. Discharge Exam - Head Exam Head Exam: ATRAUMATIC, NORMAL INSPECTION, NORMOCEPHALIC Discharge Plan - Discharge Medications Prescriptions: Hydrocortisone 1% Cream [Cortizone 1% Cream] 1 appl TOP BID 30 Days tube Methylprednisolone [Medrol Dose Pack (21 tabs)] 4 mg PO DAILY #21 mg - Follow Up Plan Condition: GOOD Disposition: DISCHARGED TO HOME CARE Instructions: Fall Prevention for Older Adults (GEN), COPD (Chronic Obstructive Pulmonary Disease) (DC), Bacterial Pneumonia (DC), Extended Spectrum Beta Lactamase (GEN), Chronic Lung Disease and Infection Prevention (DC ) Referrals: Jose C Ambrocio MD [Primary Care Provider] - <Jamie Fairchild - Last Filed: 09/03/17 14:21> Provider - Provider Date of Admission: 08/25/17 20:12 Attending physician: Jamie Fairchild MD Primary care physician: Jose C Ambrocio MD Hospital Course - Lab Results Lab Results: Most Recent Lab Values WBC 16.6 10^3/ul (4.5-11.0) H 09/02/17 09:00 RBC 4.35 10^6/uL (3.5-6.1) 09/02/17 09:00 Hgb 10.8 g/dL (14.0-18.0) L 09/02/17 09:00 Hct 36.5 % (42.0-52.0) L 09/02/17 09:00 MCV 83.9 fl (80.0-105.0) 09/02/17 09:00 MCH 24.8 pg (25.0-35.0) L 09/02/17 09:00 MCHC 29.6 g/dl (31.0-37.0) L 09/02/17 09:00 RDW 16.2 % (11.5-14.5) H 09/02/17 09:00 Plt Count 213 10^3/uL (120.0-450.0) 09/02/17 09:00 MPV 10.6 fl (7.0-11.0) 09/02/17 09:00 Gran % 81.9 % (50.0-68.0) H 09/02/17 09:00 Lymph % (Auto) 9.2 % (22.0-35.0) L 09/02/17 09:00 [place] % (Auto) 6.9 % (1.0-6.0) H 09/02/17 09:00 Eos % (Auto) 1.9 % (1.5-5.0) 09/02/17 09:00 Baso % (Auto) 0.1 % (0.0-3.0) 09/02/17 09:00 Gran # 13.55 (1.4-6.5) H 09/02/17 09:00 Lymph # 1.5 (1.2-3.4) 09/02/17 09:00 [place] # 1.2 (0.1-0.6) H 09/02/17 09:00 Eos # 0.3 (0.0-0.7) 09/02/17 09:00 Baso # 0.02 K/mm3 (0.0-2.0) 09/02/17 09:00 Sodium 137 mmol/L (132-148) 09/02/17 09:00 Potassium 4.4 mmol/L (3.6-5.0) 09/02/17 09:00 Chloride 93 mmol/L (98-107) L 09/02/17 09:00 Carbon Dioxide 37 mmol/L (21-33) H 09/02/17 09:00 Anion Gap 11 (10-20) 09/02/17 09:00 BUN 20 mg/dL (7-21) 09/02/17 09:00 Creatinine 1.0 mg/dL (0.8-1.5) 09/02/17 09:00 Est GFR ( Amer) > 60 09/02/17 09:00 Est GFR (Non-Af Amer) > 60 09/02/17 09:00 POC Glucose (mg/dL) 148 mg/dL (65-110) H 09/02/17 10:55 Random Glucose 205 mg/dL (70-110) H 09/02/17 09:00 Calcium 10.0 mg/dL (8.4-10.5) 09/02/17 09:00 Total Bilirubin 0.5 mg/dL (0.2-1.3) 09/02/17 09:00 AST 26 U/L (17-59) 09/02/17 09:00 ALT 39 U/L (7-56) 09/02/17 09:00 Alkaline Phosphatase 119 U/L (38-126) 09/02/17 09:00 Total Protein 7.0 g/dL (5.8-8.3) 09/02/17 09:00 Albumin 3.5 g/dL (3.0-4.8) 09/02/17 09:00 Globulin 3.5 gm/dL 09/02/17 09:00 Albumin/Globulin Ratio 1.0 (1.1-1.8) L 09/02/17 09:00 Attending/Attestation - Attestation I have personally seen and examined this patient.: Yes I have fully participated in the care of the patient.: Yes I have reviewed all pertinent clinical information, including history, physical exam and plan: Yes Notes (Text): I have seen and examined the patient at bedside. Briefly this is 72 year old male with history of legal blindness, severe COPD (on 4L of O2 at home), pulmonary hypertension, obstructive sleep apnea on BIPAP, psoriasis, HTN, NIDDM and CAD (s/p stents) a who was brought by patients niece for evaluation of fever , dyspnea, productive cough and generalized weakness and found to have HCAP, COPD exacerbation and ESBL UTI. There is significant improvement in respiratory status. Continue BiPAP at night. He has completed antibiotics course of ESBL UTI. CT abdomen and pelvis is negative for any abscess. Continue cardizem, bosentan and lasix. Patient is DNI DNR. Long-term prognosis is poor. Upon discharge patient will follow up with and Dr Hale. Dr Jamie Fairchild
--- NOTE | 2017-09-02 12:52 | RAD ---
PROCEDURE: Radiographs of the right elbow. HISTORY: Pain in elbow COMPARISON: No prior. FINDINGS: BONES: Coronoid process and posterior olecranon spurring/triceps insertional enthesophyte present. No fracture. JOINTS: Mild arthrosis osteoarthritis. SOFT TISSUES: Normal. JOINT EFFUSION: None. OTHER FINDINGS: None. IMPRESSION: No fracture or dislocation. Arthrosis
--- NOTE | 2017-09-02 13:00 | CP.PCM.PN ---
Subjective - Date & Time of Evaluation Date of Evaluation: 09/02/17 Time of Evaluation: 11:20 - Subjective Subjective: Comfortable, afebrile, no nausea, no diarrhea, tolerating physical therapy well. Objective - Vital Signs/Intake and Output Vital Signs (last 24 hours): Temp Pulse Resp BP Pulse Ox 99.3 F 74 26 H 99/56 L 93 L 09/01/17 16:25 09/01/17 16:25 09/01/17 16:25 09/01/17 16:25 09/01/17 16:25 Intake and Output: 09/02/17 09/02/17 06:59 18:59 Intake Total 640 Balance 640 - Medications Medications: Current Medications Acetaminophen (Tylenol 325mg Tab) 650 mg PO Q6H PRN; Protocol PRN Reason: Pain, moderate (4-7) Last Admin: 09/01/17 21:36 Dose: 650 mg Albuterol/Ipratropium (Duoneb 3 Mg/0.5 Mg (3 Ml) Ud) 3 ml IH Q2H PRN; Protocol PRN Reason: Shortness of Breath Albuterol/Ipratropium (Duoneb 3 Mg/0.5 Mg (3 Ml) Ud) 3 ml IH [id number] [place] PRN Reason: Protocol Last Admin: 09/02/17 07:29 Dose: 3 ml Cyanocobalamin (Vitamin B12 1000 Mcg Tab) 1,000 mcg PO DAILY [place] PRN Reason: Protocol Last Admin: 09/01/17 09:56 Dose: 1,000 mcg Diltiazem HCl (Cardizem Cd) 300 mg PO DAILY [place] PRN Reason: Protocol Last Admin: 09/01/17 09:52 Dose: 300 mg Docusate Sodium (Colace) 100 mg PO TID [place] PRN Reason: Protocol Last Admin: 09/01/17 18:41 Dose: Not Given Furosemide (Lasix) 40 mg PO DAILY [place] PRN Reason: Protocol Last Admin: 09/01/17 09:54 Dose: 40 mg Heparin Sodium (Porcine) (Heparin) 5,000 units SC Q12 [place] PRN Reason: Protocol Last Admin: 09/01/17 21:35 Dose: 5,000 units Hydrocortisone (Cortizone 1% Cream) 0 gm TOP BID [facility] Last Admin: 09/01/17 18:41 Dose: 1 applic Insulin Human Lispro (Humalog Med) 0 units SC ACHS [facility] PRN Reason: Protocol Last Admin: 09/02/17 07:04 Dose: Not Given Multi-Ingredient Cream (Hydrocerin Cream) 0 ea TOP BID [facility] Last Admin: 09/01/17 18:42 Dose: 1 applic (Bosentan [Tracleer] (125 Mg) 125 mg PO BID [facility] Last Admin: 09/01/17 18:40 Dose: 125 mg Pantoprazole Sodium (Protonix Ec Tab) 40 mg PO 0600 [facility] Last Admin: 09/02/17 07:42 Dose: 40 mg Polyethylene Glycol (Miralax) 17 gm PO DAILY [facility] PRN Reason: Protocol Last Admin: 09/01/17 09:55 Dose: Not Given Prednisone (Prednisone Tab) 15 mg PO DAILY [facility] Last Admin: 09/01/17 09:55 Dose: 15 mg - Labs Labs: 09/01/17 07:00 09/01/17 07:00 - Constitutional Appears: Non-toxic - Head Exam Head Exam: NORMAL INSPECTION - ENT Exam ENT Exam: Mucous Membranes Moist - Neck Exam Neck Exam: absent: Meningismus - Respiratory Exam Respiratory Exam: Decreased Breath Sounds - Cardiovascular Exam Cardiovascular Exam: +S1, +S2 - GI/Abdominal Exam GI & Abdominal Exam: Soft. absent: Tenderness Assessment and Plan - Assessment and Plan (Free Text) Plan: Assessment S/P severe sepsis due to left lower lobe pneumonia and UTI with ESBL E. coli consider COPD exacerbation HTN COPD GERD coronary artery disease S/P PCI and stents placed DM osbtructive sleep apnea Plan S/P Doxycycline and Merrem x 11 days - PSA is only 1.6 - continue to monitor off antibiotics since he is at risk for hospital-acquired infections (while he is in the hospital) Reviewed Dr. Edmond's recommendations - patient to continue on PO Prednisone
[2017-09-02 16:02] VITALS: BP 125/68; PULSE 75; RESP 20; TEMP 98.4; O2SAT 92
--- NOTE | 2017-09-02 18:37 | US ---
HISTORY: Leg pain and swelling. Evaluate for DVT PHYSICIAN(S): Tremaine Silva MD. TECHNIQUE: Duplex sonography and color-flow Doppler with graded compression were used to evaluate the deep venous systems of both lower extremities. The exam is limited by edema. FINDINGS: The visualized deep venous systems of both lower extremities are sonographically normal and compressible. Normal wave forms and augmentation are seen. There is no sonographic evidence for deep venous thrombosis in the visualized segments of both lower extremities. IMPRESSION: No sonographic evidence for deep venous thrombosis in the visualized segments of both lower extremities.
== END 2017-09-02 16:35 | disposition home health service (06) | DRG 194 ==
LOC: TRCU 20:12
PROVIDERS: ADMIT Hospitalist; ATTEND Hospitalist
PROC: 3E03329 Introduction of Other Anti-infective into Peripheral Vein, Percutaneous Approach (ICD-10-PCS; 2017-08-25)
PROC: 5A09357 Assistance with Respiratory Ventilation, Less than 24 Consecutive Hours, Continuous Positive Airway Pressure (ICD-10-PCS; 2017-08-26)
PROC: F07Z9FZ Gait Training/Functional Ambulation Treatment using Assistive, Adaptive, Supportive or Protective Equipment (ICD-10-PCS; principal; 2017-08-27)
PROC: F07Z8ZZ Transfer Training Treatment (ICD-10-PCS; 2017-08-27)
PROC: F07L6ZZ Therapeutic Exercise Treatment of Musculoskeletal System - Lower Back / Lower Extremity (ICD-10-PCS; 2017-08-27)
PROC: F08Z2ZZ Grooming/Personal Hygiene Treatment (ICD-10-PCS; 2017-08-31)
PROC: F08Z1FZ Dressing Techniques Treatment using Assistive, Adaptive, Supportive or Protective Equipment (ICD-10-PCS; 2017-08-31)
DX: J18.9 Pneumonia, unspecified organism (principal); J44.1 Chronic obstructive pulmonary disease with (acute) exacerbation; N39.0 Urinary tract infection, site not specified; I50.32 Chronic diastolic (congestive) heart failure; J44.0 Chronic obstructive pulmonary disease with (acute) lower respiratory infection; I11.0 Hypertensive heart disease with heart failure; B96.20 Unspecified Escherichia coli [E. coli] as the cause of diseases classified elsewhere; E11.9 Type 2 diabetes mellitus without complications; Z79.2 Long term (current) use of antibiotics; J20.9 Acute bronchitis, unspecified; I27.20 Pulmonary hypertension, unspecified; K21.9 Gastro-esophageal reflux disease without esophagitis; L40.9 Psoriasis, unspecified; I48.91 Unspecified atrial fibrillation; K59.00 Constipation, unspecified; G47.33 Obstructive sleep apnea (adult) (pediatric); I25.10 Atherosclerotic heart disease of native coronary artery without angina pectoris; H54.8 Legal blindness, as defined in USA; Z16.12 Extended spectrum beta lactamase (ESBL) resistance; M25.521 Pain in right elbow; D64.9 Anemia, unspecified; Z66 Do not resuscitate; Z79.4 Long term (current) use of insulin; Z99.81 Dependence on supplemental oxygen; Z95.5 Presence of coronary angioplasty implant and graft; Z87.891 Personal history of nicotine dependence

== ENCOUNTER 2017-09-08 03:39 | Inpatient (IN) | payer MEDICARE, OTHER ==
[2017-09-08 03:39] VITALS: BMI 27.3
--- NOTE | 2017-09-08 03:48 | ED PDOC ---
Arrival/HPI - General Chief Complaint: Shortness Of Breath Time Seen by Provider: 09/08/17 03:40 Historian: Patient - History of Present Illness Narrative History of Present Illness (Text): 09/08/17 03:48 Tremaine Salgado is a 72 year old male, whose past medical history includes COPD, CHF, hypertension, diabetes, blindness, GERD, CAD, left lung mass, and psoriasis , who presents to the Emergency department brought in by EMS accompanied by family for chest pain. As per relative, patient began complaining of chest pain , radiating to right arm with associated shortness of breath yesterday. Relative states patient had Tylenol and Tramadol without relief. Patient was recently discharged from the hospital on 09/02/2017 following treatment for pneumonia and COPD exacerbation. Limited HPI and ROS secondary to patient's acuity of condition. PMD: Dr. 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 Thickened, whitish-yellowish skin patch) Hx Psoriasis: Yes Other/Comment: Generalized body surface area, including extremities and torso with reddened, flushed skin with dry, whitish-yellow, thick, scaly, flaky patches. - Musculoskeletal/Rheumatological Hx Falls: Yes (past) - Gastrointestinal Hx Gastrointestinal Disorders: Yes (reflux) - Genitourinary/Gynecological Hx Genitourinary Disorders: Yes Other/Comment: urinary urgency/frequency - Psychiatric Hx Psychophysiologic Disorder: Yes Hx Substance Use: No (NONE NOTED) - Surgical History Hx Appendectomy: Yes - Anesthesia Hx Anesthesia Reactions: No Hx Malignant Hyperthermia: No - Suicidal Assessment Feels Threatened In Home Enviroment: No Family/Social History - Physician Review Nursing Documentation Reviewed: Yes Family/Social History: Unknown Family HX Smoking Status: Former Smoker Hx Alcohol Use: Yes Hx Substance Use: No (NONE NOTED) Hx Substance Use Treatment: No Allergies/Home Meds Allergies/Adverse Reactions: Allergies No Known Allergies Allergy (Verified 08/25/17 20:15) Home Medications: Home Meds Medication Instructions Recorded Confirmed Bosentan [Tracleer] 125 mg PO BID 08/19/17 09/08/17 Cyanocobalamin (Vitamin B-12) 500 mcg PO DAILY 08/19/17 09/08/17 [Vitamin B-12] Furosemide [Lasix] 40 mg PO BID 08/19/17 09/08/17 [id number] [Cardizem CD] 300 mg PO DAILY 08/19/17 09/08/17 Alprazolam [Xanax] 0.25 mg PO BID 09/08/17 09/08/17 Esomeprazole Magnesium [Nexium] 40 mg PO DAILY 09/08/17 09/08/17 Sitagliptin Phos/Metformin HCl 1 each PO BID 09/08/17 09/08/17 [Janumet 50-500 mg Tablet] predniSONE [Prednisone] See Taper PO DAILY 09/08/17 09/08/17 Review of Systems - Review of Systems Systems not reviewed;Unavailable: Acuity of Condition Respiratory: SOB Cardiovascular: Chest Pain Physical Exam Vital Signs Reviewed: Yes Vital Signs Temp Pulse Resp BP Pulse Ox 09/08/17 06:29 76 23 132/66 94 L 09/08/17 04:07 98.0 F 99 H 17 130/76 95 09/08/17 03:49 26 H Temperature: Afebrile Blood Pressure: Normal Pulse: Regular Respiratory Rate: Normal Pain Distress: None Finger Stick Blood Glucose: 56 - Systems Exam Head: Present: Atraumatic, Normocephalic Pupils: Present: PERRL Extroacular Muscles: Present: EOMI Conjunctiva: Present: Normal Mouth: Present: Moist Mucous Membranes Neck: Present: Normal Range of Motion Respiratory/Chest: Present: Wheezes. No: Respiratory Distress, Accessory Muscle Use Cardiovascular: Present: Regular Rate and Rhythm, Normal S1, S2. No: Murmurs Abdomen: Present: Normal Bowel Sounds. No: Tenderness, Distention, Peritoneal Signs Back: Present: Normal Inspection Upper Extremity: Present: Normal Inspection. No: Cyanosis, Edema Lower Extremity: Present: Normal Inspection. No: Edema Neurological: Present: GCS=15, CN II-XII Intact, Speech Normal Skin: Present: Warm, Dry, Normal Color. No: Rashes Psychiatric: Present: Alert, Oriented x 3, Normal Insight, Normal Concentration Medical Decision Making ED Course and Treatment: 09/08/17 03:48 Impression: 72 year old male complaining of chest pain and shortness of breath tonight. Differential Diagnosis included but are not limited to: COPD vs. lung mass vs. pneumonia vs. CHF vs. ACS Plan: -- EKG -- Chest X-ray -- Labs, cardiac enzymes, BNP, blood cultures -- Reassess and disposition Prior Visits: Notes and results from previous visits were reviewed. On 08/19/17, pt was seen in the Emergency department for shortness of breath. Pt was admitted to the hospital for further evaluation. Progress Notes: Reviewed EKG, NSR at 93 bpm. Prolonged QT. Non-specific ST/T wave changes. 09/08/17 04:51 Reviewed radiology, Chest X-ray shows no acute change from previous for 09/08/17 , lung mass present. 09/08/17 05:36 Case discussed with chief medical officer vocational psychologist, who is aware and agrees with plan. 09/08/17 05:[address] Lezama, who is aware and agrees with plan. Accepts pt in to hospitalist service. Pt was admitted to Telemetry for chest pain and COPD. - Lab Interpretations Microbiology Results: Microbiology Results 09/08/17 05:00 Blood-Venous Blood Culture - Preliminary NO GROWTH AFTER 24 HOURS 09/08/17 04:30 Blood-Venous Blood Culture - Preliminary NO GROWTH AFTER 24 HOURS Lab Results: 09/08/17 03:50 09/08/17 03:50 Lab Results 09/08/17 03:50: Sodium 141, Chloride 93 L, Potassium 3.8, Carbon Dioxide 42 H, Anion Gap 10, BUN 17, Creatinine 1.0, Est GFR ( Amer) > 60, Est GFR (Non- Af Amer) > 60, Random Glucose 133 H, Calcium 9.5, Total Bilirubin 0.6, AST 19, ALT 39, Alkaline Phosphatase 108, Lactate Dehydrogenase 339, Total Creatine Kinase < 20 L, Troponin I < 0.01, NT-Pro-B Natriuret Pep 444, Total Protein 6.7 , Albumin 3.4, Globulin 3.3, Albumin/Globulin Ratio 1.0 L 09/08/17 03:50: pO2 39, VBG pH 7.34, VBG pCO2 84.0 H*, VBG HCO3 45.3 H, VBG Total CO2 47.9 H, VBG O2 Sat (Calc) 78.2 H, VBG Base Excess 15.3 H, VBG Potassium 3.7, Sodium 140.0, Chloride 100.0, Glucose 134 H, Lactate 0.9, FiO2 21.0, Venous Blood Potassium 3.7 09/08/17 03:50: PT 12.2, INR 1.11 H, APTT 26.4 09/08/17 03:50: WBC 16.0 H, RBC 4.13, Hgb 10.4 L, Hct 36.1 L, MCV 87.4 D, MCH 25.2, MCHC 28.8 L, RDW 16.8 H, Plt Count 231, MPV 10.4, Gran % 79.6 H, Lymph % ( Auto) 12.1 L, [place] % (Auto) 6.3 H, Eos % (Auto) 1.8, Baso % (Auto) 0.2, Gran # 12.77 H, Lymph # 1.9, [place] # 1.0 H, Eos # 0.3, Baso # 0.03 09/08/17 03:43: POC Glucose (mg/dL) 56 L 09/08/17 03:02: TSH 3rd Generation 2.58 09/08/17 03:02: Triglycerides 156, Cholesterol 137, LDL Cholesterol Direct 75, HDL Cholesterol 31 09/08/17 03:02: Hemoglobin A1c 7.0 H I have reviewed the lab results: Yes - RAD Interpretation Radiology Orders: 09/08/17 03:49 CHEST PORTABLE [RAD] Stat Binder Lockstitch: ED Physician - EKG Interpretation Interpreted by ED Physician: Yes Type: 12 lead EKG - Medication Orders Current Medication Orders: Albuterol/Ipratropium (Duoneb 3 Mg/0.5 Mg (3 Ml) Ud) 3 ml IH [id number] [place] Last Admin: 09/09/17 21:12 Dose: 3 ml Albuterol/Ipratropium (Duoneb 3 Mg/0.5 Mg (3 Ml) Ud) 3 ml IH Q2H PRN PRN Reason: Shortness of Breath Alprazolam (Xanax) 0.25 mg PO BID [facility] PRN Reason: Protocol Stop: 09/15/17 10:01 Last Admin: 09/09/17 18:05 Dose: 0.25 mg Behavioural Document 09/09/17 18:05 (Rec: 09/09/17 18:05 [id number] Maintenance Maintenance Dose Yes Nonmedicinal Nonmedicinal Interventions Therapeutic Communication Behavior Behavior for Medication: Anxiety Re-Assess: Reassess Psych Meds Document 09/09/17 19:05 SWE (Rec: 09/09/17 19:39 SWE [id number]) Reassess Psych Med Effective Cyanocobalamin (Vitamin B12 1000 Mcg Tab) 500 mcg PO DAILY [facility] Last Admin: 09/09/17 10:19 Dose: 500 mcg Diltiazem HCl (Cardizem Cd) 300 mg PO DAILY [facility] Last Admin: 09/09/17 10:14 Dose: 300 mg MAR Pulse and Blood Pressure Document 09/09/17 10:14 GOVIND (Rec: 09/09/17 10:14 GOVIND [id number]) Pulse Pulse Rate (60-90) 74 Blood Pressure Blood Pressure (100/60-150/90) 116/63 Docusate Sodium (Colace) 100 mg PO TID [facility] Last Admin: 09/09/17 20:00 Dose: Not Given Non-Admin Reason: Patient Refused Doxycycline Hyclate (Doryx) 100 mg PO Q12 [facility] PRN Reason: Protocol Last Admin: 09/09/17 21:16 Dose: 100 mg Furosemide (Lasix) 40 mg PO BID [facility] Last Admin: 09/09/17 18:05 Dose: 40 mg MAR Blood Pressure Document 09/09/17 18:05 (Rec: 09/09/17 18:07 [id number] Blood Pressure Blood Pressure (100/60-150/90) 105/58 Home Med (Home Med) 1 unit PO BID [facility] Last Admin: 09/09/17 18:10 Dose: 1 unit Hydrocortisone (Cortizone 1% Cream) 0 gm TOP BID [facility] Last Admin: 09/09/17 18:13 Dose: Not Given Non-Admin Reason: Patient Refused Insulin Human Lispro (Humalog Med) 0 units SC ACHS [facility] PRN Reason: Protocol Last Admin: 09/09/17 18:04 Dose: 3 units MAR Blood Glucose Document 09/09/17 18:04 MF (Rec: 09/09/17 18:05 [facility] [email or web address]) Blood Glucose Finger Stick Blood Glucose (70-120) 222 Subcutaneous Administrations Document 09/09/17 18:04 (Rec: 09/09/17 18:05 [facility] [email or web address]) Injection Site MAR Injection Site Left Deltoid Charges for Administration # of Subcutaneous Administrations 1 Methylprednisolone (Solu-Medrol) 30 mg IVP Q12 [facility] Last Admin: 09/09/17 21:17 Dose: 30 mg IVP Administration Document 09/09/17 21:17 SWE (Rec: 09/09/17 21:16 SWE [id number]) Charges for Administration # of IVP Administrations 1 Multi-Ingredient Cream (Hydrocerin Cream) 0 ea TOP BID [facility] Last Admin: 09/09/17 18:13 Dose: Not Given Non-Admin Reason: Patient Refused Pantoprazole Sodium (Protonix Inj) 40 mg IVP DAILY [facility] Last Admin: 09/09/17 10:15 Dose: 40 mg IVP Administration Document 09/09/17 10:15 GOVIND (Rec: 09/09/17 10:15 GOVIND [id number]) Charges for Administration # of IVP Administrations 1 Discontinued Medications Acetaminophen (Tylenol 325mg Tab) 650 mg PO STAT STA Stop: 09/08/17 21:04 Last Admin: 09/08/17 21:19 Dose: 650 mg MAR Pain/Vitals Document 09/08/17 21:19 LUL (Rec: 09/08/17 21:19 ZARAL [id number]) Pain Reassessment Is This A Pain ReAssessment? No Sleep Is patient sleeping during reassessment? No Presence of Pain Presence of Pain Yes Acetaminophen (Tylenol 325mg Tab) 650 mg PO ONCE ONE Stop: 09/09/17 11:09 Last Admin: 09/09/17 11:29 Dose: 650 mg MAR Pain/Vitals Document 09/09/17 11:29 GOVIND (Rec: 09/09/17 11:29 GOVIND [id number]) Pain Reassessment Is This A Pain ReAssessment? No Sleep Is patient sleeping during reassessment? No Presence of Pain Presence of Pain Yes Pain Scale Used Pain Scale Used Numeric Location Left, Right or Bilateral Right Pain Location Body Site Arm Description Chronic Intensity 6 Aggravating Factors None Alleviating Factors Medication Re-Assess: IRLANDA Pain/Vitals Document 09/09/17 12:29 GOVIND (Rec: 09/09/17 13:17 GOVIND [id number]) Pain Reassessment Is This A Pain ReAssessment? Yes Sleep Is patient sleeping during reassessment? No Presence of Pain Presence of Pain No Albuterol/Ipratropium (Duoneb 3 Mg/0.5 Mg (3 Ml) Ud) 3 ml IH Q2 PRN PRN Reason: Shortness of Breath Stop: 09/08/17 12:01 Dextrose (Dextrose 50% Inj) 50 ml IVP ONCE ONE Stop: 09/08/17 06:24 Bosentan [Tracleer] (125 Mg) 125 mg PO BID [place] Last Admin: 09/08/17 12:04 Dose: - Scribe Statement The provider has reviewed the documentation as recorded by the Elizabeth Hammer Provider Scribe Attestation: All medical record entries made by the Scribwilmer were at my direction and personally dictated by me. I have reviewed the chart and agree that the record accurately reflects my personal performance of the history, physical exam, medical decision making, and the department course for this patient. I have also personally directed, reviewed, and agree with the discharge instructions and disposition. Disposition/Present on Arrival - Present on Arrival Any Indicators Present on Arrival: No History of DVT/PE: Yes History of Uncontrolled Diabetes: Yes Urinary Catheter: Yes History of Decub. Ulcer: No History Surgical Site Infection Following: None - Disposition Have Diagnosis and Disposition been Completed?: Yes Diagnosis: COPD exacerbation, Hypercapnia Disposition: HOSPITALIZED Disposition Time: 05:40 Condition: FAIR
[2017-09-08] MEDS ORDERED: Dextrose 50% SYRINGE Inj (50 ml) ONE (03:51)
[2017-09-08 03:59] LABS: VENOUS BLOOD GAS BASE EXCESS 15.3 mmol/L (0.0-2.0); VENOUS BLOOD PH 7.34 (7.32-7.43)
[2017-09-08 04:08] LABS: INR 1.11 (0.93-1.08); PARTIAL THROMBOPLASTIN TIME 26.4 Seconds (25.1-36.5)
[2017-09-08 04:09] LABS: ALKALINE PHOSPHATASE 108 U/L (38-126); ALT/SGPT 39 U/L (7-56); AST/SGOT 19 U/L (17-59); BILIRUBIN,TOTAL 0.6 mg/dL (0.2-1.3); BLOOD UREA NITROGEN 17 mg/dL (7-21); CALCIUM 9.5 mg/dL (8.4-10.5); CHLORIDE 93 mmol/L (98-107); GFR AFRICAN-AMERICAN > 60; GLUCOSE,RANDOM 133 mg/dL (70-110); POTASSIUM 3.8 mmol/L (3.6-5.0); SODIUM 141 mmol/L (132-148); TOTAL PROTEIN 6.7 g/dL (5.8-8.3)
[2017-09-08 04:34] LABS: CARBON DIOXIDE 42 mmol/L (21-33); TROPONIN I < 0.01 ng/mL
[2017-09-08 04:55] LABS: BASO # 0.03 K/mm3 (0.0-2.0); BASO % 0.2 % (0.0-3.0); EOS # 0.3 (0.0-0.7); EOS % 1.8 % (1.5-5.0); GRAN # 12.77 (1.4-6.5); GRAN % 79.6 % (50.0-68.0); HEMATOCRIT 36.1 % (42.0-52.0); LYMPH # 1.9 (1.2-3.4); LYMPH % 12.1 % (22.0-35.0); MEAN CELL VOLUME 87.4 fl (80.0-105.0); MEAN CORPUSCULAR HEMOGLOBIN 25.2 pg (25.0-35.0); MEAN CORPUSCULAR HGB CONC 28.8 g/dl (31.0-37.0); MEAN PLATELET VOLUME 10.4 fl (7.0-11.0); MONO % 6.3 % (1.0-6.0); RED CELL DISTRIBUTION WIDTH 16.8 % (11.5-14.5)
[2017-09-08] MEDS ORDERED: Albuterol-Ipratrop 3 mg / 0.5 (3 ml) UD IH PRN ×2 (06:01→07:33)
--- NOTE | 2017-09-08 06:14 | CP.PCM.HP ---
<Mirza Terrazas - Last Filed: 09/08/17 19:54> History of Present Illness - History of Present Illness History of Present Illness: This is a 72 year old male with a past medical history of COPD (Home o2: 4L), CHF, Hypertension, type II diabetes, blindness, GERD, cad, left lung mass and psoriasis that comes in complaining of chest pain that radiates to the left arm. The patient reports it worsening with movement and rates it a 8/10 in severity. The patient had been reporting some fatigue earlier in the day. The patient reports taking Tramadol prescribed to him and going to sleep. The patient during the middle of the night awoke due to the chest pain. The patient 's pushed his life alert and was transported to the hospital. The patient denies any lightheadedness, dizziness, changes in vision, syncopal episodes, abdominal pain, nausea, vomiting, numbness or tingling in the hands or feet, sick contacts, or any other complaints. PMD: Dr. Ambrocio Past medical history: See hpi Allergies:NKDA Past surgical history: hernia repair Family history: Sister(Diabetes) Social history: 3ppd smoker. Quit 25 years ago. Denies illicit drug use. Medications: See MAR Present on Admission - Present on Admission Any Indicators Present on Admission: No Review of Systems - Constitutional Constitutional: absent: Chills, Daytime Sleepiness, Night Sweats, Weakness - EENT Eyes: absent: Blurred Vision, Loss of Peripheral Vision, Sees Flashes, Other Visual Disturbances, Loss of Vision Ears: absent: Ear Discharge, Dizziness Nose/Mouth/Throat: absent: Nasal Congestion, Nasal Trauma, Nose Pain, Bleeding Gums, Mouth Pain, Tongue Swelling, Facial Pain - Cardiovascular Cardiovascular: Chest Pain, Chest Pain at Rest. absent: Leg Edema, Orthopnea, Palpitations, Pedal Edema - Respiratory Respiratory: absent: Cough, Dyspnea, Dyspnea on Exertion, Chest Congestion, Change in Mucous Color - Gastrointestinal Gastrointestinal: absent: Belching, Cramping, Diarrhea, Dyspepsia, Loose Stools , Melena, Nausea, Vomiting - Musculoskeletal Musculoskeletal: absent: Back Pain, Muscle Weakness, Neck Pain, Numbness, Stiffness, Tingling - Neurological Neurological: absent: Numbness, Lack of Coordination, Restless Legs, Vertigo, Weakness - Psychiatric Psychiatric: absent: Anxiety, Confusion, Depression Past Patient History - Infectious Disease Hx of Infectious Diseases: None - Tetanus Immunizations Tetanus Immunization: Up to Date - Past Social History Smoking Status: Former Smoker - CARDIAC Hx Cardiac Disorders: Yes Hx Congestive Heart Failure: Yes Hx Hypertension: Yes - PULMONARY Hx Chronic Obstructive Pulmonary Disease (COPD): Yes (end stage) - NEUROLOGICAL Hx Neurological Disorder: Yes (Blind since the age of 1.) - HEENT Hx Blind: Yes (since age 1) - RENAL Hx Renal Failure: Yes (renal failure) - ENDOCRINE/METABOLIC Hx Diabetes Mellitus Type 2: Yes - HEMATOLOGICAL/ONCOLOGICAL Hx Blood Disorders: Yes Hx Cancer: Yes (lung mass) - INTEGUMENTARY Hx Dermatological Problems: Yes (Reddened, flush skin, dry and taut. Thickened, whitish-yellowish skin patch) Hx Psoriasis: Yes Other/Comment: Generalized body surface area, including extremities and torso with reddened, flushed skin with dry, whitish-yellow, thick, scaly, flaky patches. - MUSCULOSKELETAL/RHEUMATOLOGICAL Hx Falls: Yes (past) - GASTROINTESTINAL Hx Gastrointestinal Disorders: Yes (reflux) - GENITOURINARY/GYNECOLOGICAL Hx Genitourinary Disorders: Yes Other/Comment: urinary urgency/frequency - PSYCHIATRIC Hx Psychophysiologic Disorder: Yes Hx Substance Use: No (NONE NOTED) - SURGICAL HISTORY Hx Appendectomy: Yes - ANESTHESIA Hx Anesthesia Reactions: No Hx Malignant Hyperthermia: No Meds Allergies/Adverse Reactions: Allergies Allergy/AdvReac Type Severity Reaction Status Date / Time No Known Allergies Allergy Verified 08/25/17 20:15 Results - Vital Signs Recent Vital Signs: Last Vital Signs Temp 98.0 F 09/08/17 04:07 Pulse 99 H 09/08/17 04:07 Resp 17 09/08/17 04:07 BP 130/76 09/08/17 04:07 Pulse Ox 95 09/08/17 04:07 - Labs Result Diagrams: 09/08/17 03:50 09/08/17 03:50 Labs: Laboratory Results - last 24 hr 09/08/17 09/08/17 09/08/17 03:50 03:50 03:50 WBC 16.0 H RBC 4.13 Hgb 10.4 L Hct 36.1 L MCV 87.4 D MCH 25.2 MCHC 28.8 L RDW 16.8 H Plt Count 231 MPV 10.4 Gran % 79.6 H Lymph % (Auto) 12.1 L [place] % (Auto) 6.3 H Eos % (Auto) 1.8 Baso % (Auto) 0.2 Gran # 12.77 H Lymph # 1.9 [place] # 1.0 H Eos # 0.3 Baso # 0.03 PT 12.2 INR 1.11 H APTT 26.4 pO2 39 VBG pH 7.34 VBG pCO2 84.0 H* VBG HCO3 45.3 H VBG Total CO2 47.9 H VBG O2 Sat (Calc) 78.2 H VBG Base Excess 15.3 H VBG Potassium 3.7 Sodium 140.0 Chloride 100.0 Glucose 134 H Lactate 0.9 FiO2 21.0 Potassium Carbon Dioxide Anion Gap BUN Creatinine Est GFR ( Amer) Est GFR (Non-Af Amer) Random Glucose Calcium Total Bilirubin AST ALT Alkaline Phosphatase Lactate Dehydrogenase Total Creatine Kinase Troponin I NT-Pro-B Natriuret Pep Total Protein Albumin Globulin Albumin/Globulin Ratio Venous Blood Potassium 3.7 09/08/17 03:50 WBC RBC Hgb Hct MCV MCH MCHC RDW Plt Count MPV Gran % Lymph % (Auto) [place] % (Auto) Eos % (Auto) Baso % (Auto) Gran # Lymph # Phillips # Eos # Baso # PT INR APTT pO2 VBG pH VBG pCO2 VBG HCO3 VBG Total CO2 VBG O2 Sat (Calc) VBG Base Excess VBG Potassium Sodium 141 Chloride 93 L Glucose Lactate FiO2 Potassium 3.8 Carbon Dioxide 42 H Anion Gap 10 BUN 17 Creatinine 1.0 Est GFR ( Amer) > 60 Est GFR (Non-Af Amer) > 60 Random Glucose 133 H Calcium 9.5 Total Bilirubin 0.6 AST 19 ALT 39 Alkaline Phosphatase 108 Lactate Dehydrogenase 339 Total Creatine Kinase < 20 L Troponin I < 0.01 NT-Pro-B Natriuret Pep 444 Total Protein 6.7 Albumin 3.4 Globulin 3.3 Albumin/Globulin Ratio 1.0 L Venous Blood Potassium Assessment & Plan - Assessment and Plan (Free Text) Assessment: This is a 72 year old male with a past medical history of COPD, chf, hypertension, diabetes, blindness, gerd, CAD, left lung mass, psoriasis, and atrial fibrillation who comes in for copd exacerbation and chest pain. Plan: 1.COPD exacerbation -Duonebs prn. Scheduled Steroids -Doxycline and Meropenem. -BIPAP at night 2. Chest pain r/o acs -EKG done in e.d. showed nsr with no acute st-t changes -Trend troponins. -TSH, Lipid panel, hemoglobin a1c ordered . F/U with results. -Cardiology consulted. Will f/u with rec's. 3.h/o Atrial fibrillation -continue with Cardizem 4. DM -ISS -Accuchecks ACHS 5. Pulmonary hypertension -Continue home meds 6.h/o Diastolic CHF -continue with Lasix 7. Constipation -continue with home meds GI ppx -Protonix DVT ppx -SCD's <LezamaMoirs melendezlazara - Last Filed: 09/08/17 22:54> Results - Vital Signs Recent Vital Signs: Last Vital Signs Temp 99.2 F 09/08/17 16:53 Pulse 74 09/08/17 22:00 Resp 18 09/08/17 16:53 BP 111/59 L 09/08/17 17:31 Pulse Ox 98 09/08/17 16:53 - Labs Result Diagrams: 09/08/17 03:50 09/08/17 03:50 Labs: Laboratory Results - last 24 hr 09/08/17 09/08/17 09/08/17 06:15 06:25 08:10 pCO2 63 H pO2 71.0 L HCO3 37.3 H ABG pH 7.38 ABG Total CO2 39.2 H ABG O2 Saturation 96.9 ABG O2 Content 12.3 L ABG Base Excess 10.5 H ABG Hemoglobin 9.3 L ABG Carboxyhemoglobin 2.7 H POC ABG HHb (Measured) 3.0 ABG Methemoglobin 1.2 ABG O2 Capacity 12.7 L Hgb O2 Saturation 93.1 L FiO2 45.0 POC Glucose (mg/dL) 206 H 239 H Troponin I 09/08/17 09/08/17 09/08/17 12:30 16:07 20:32 pCO2 pO2 HCO3 ABG pH ABG Total CO2 ABG O2 Saturation ABG O2 Content ABG Base Excess ABG Hemoglobin ABG Carboxyhemoglobin POC ABG HHb (Measured) ABG Methemoglobin ABG O2 Capacity Hgb O2 Saturation FiO2 POC Glucose (mg/dL) 162 H Troponin I < 0.01 < 0.01 09/08/17 20:57 pCO2 pO2 HCO3 ABG pH ABG Total CO2 ABG O2 Saturation ABG O2 Content ABG Base Excess ABG Hemoglobin ABG Carboxyhemoglobin POC ABG HHb (Measured) ABG Methemoglobin ABG O2 Capacity Hgb O2 Saturation FiO2 POC Glucose (mg/dL) 207 H Troponin I Attending/Attestation - Attestation I have personally seen and examined this patient.: Yes I have fully participated in the care of the patient.: Yes I have reviewed all pertinent clinical information: Yes Notes (Text): 09/08/17 22:52 Patient was seen when he was in the ER. Agree with history, physical examination, assessment and plan. Medial record was reviewed. My impressions are as follows: SOB chest pain. COPD Leukocytosis. Anemia. Left Lung mass. CAD CHF HTN DM Blindness GERD Psoriasis. Appendectomy.
[2017-09-08 06:22] LABS: ARTERIAL BLOOD GAS HCO3 37.3 mmol/L (21-28); ARTERIAL BLOOD GAS O2 CAPACITY 12.7 mL/dl (16-24); ARTERIAL BLOOD GAS O2 CONTENT 12.3 ML/dl (15-23); ARTERIAL BLOOD GAS PH 7.38 (7.35-7.45); ARTERIAL BLOOD HGB O2 SAT 93.1 % (95.0-98.0); CARBOXYHEMOGLOBIN 2.7 % (0.5-1.5); METHEMOGLOBIN 1.2 % (0.0-3.0)
[2017-09-08] MEDS ORDERED: Dextrose 50% SYRINGE Inj (50 ml) IVP ONE (06:23)
[2017-09-08 06:44] LABS: CHOLESTEROL 137 mg/dL (130-200)
[2017-09-08] MEDS: Albuterol-Ipratrop 3 mg / 0.5 (3 ml) UD IH SCH ×3 (07:51→19:57)
--- NOTE | 2017-09-08 07:54 | RAD ---
HISTORY: sob COMPARISON: Chest radiographs 08/20/2017. FINDINGS: LUNGS: Patellar prominent right paratracheal soft tissues reflecting probable substernal thyroid gland or great vessel ectasis is unchanged in the interval. CT can be utilized for further characterization here. Further, no interval changes appreciated in right basilar airspace disease with linear atelectasis identified at the left base. PLEURA: The right pleural effusion not excluded. One is not seen at the left. CARDIOVASCULAR: Cardiac silhouette appears stable. Pulmonary venous congestion persists did and does not appear simply change. In fact, interstitial markings may be increased at the in the periphery of the bilateral bases, left greater than right. OSSEOUS STRUCTURES: No significant abnormalities. VISUALIZED UPPER ABDOMEN: Normal. OTHER FINDINGS: None. IMPRESSION: Persistent CHF pattern with right basilar airspace disease unchanged and probable small right pleural effusion. Continued clinical and radiographic monitor advised.
[2017-09-08] MEDS: Insulin Lispro (humaLOG) MEDIUM Coverage SC SCH ×4 (08:23→21:53)
--- NOTE | 2017-09-08 09:41 | CON ---
PULMONARY CONSULTATION DATE: 09/08/2017 CONSULTATION REQUESTED BY: Dr. Fairchidl REASON FOR CONSULTATION: Chronic obstructive pulmonary disease. HISTORY OF PRESENT ILLNESS: History is obtained via extensive discussion with the niece (Racheal). I have also discussed the case with the patient at length, and reviewed the chart at length. The patient is a 72-year-old chronically ill male, with past medical history significant for end-stage chronic obstructive pulmonary disease, on home oxygen, recurrent bronchitis, recurrent respiratory failure, left upper lobe lung mass (the patient and family refused workup in the past), pulmonary hypertension, coronary artery disease, who presents to [facility] with main complaint of chest pain-- upon awakening earlier this morning. Apparently, at approximately 3:00 a.m., the patient awoke with chest pain. He does state that the chest pain is worsened with movement or twisting. He was thus admitted for additional evaluation. Again, I did discuss the case with the niece (power of employee benefits attorney, who lives with the patient), and the patient at length. The patient is not short of breath at rest. He has chronic dyspnea on exertion - which has not changed. He also has a chronic cough with minimal sputum production - again not changed. As above, the patient did present with chest pain. He denies chest pain at the time of my examination. There is no history of coughing up of blood. The chest pain does worsen with movement, twisting, or coughing. There is no history of temperatures, chills or infectious exposure. There is no history of night sweats, weight loss or appetite change prior to the above events. No history of leg or calf pains. No history of syncope or diaphoresis. No history of recent travel or trauma. REVIEW OF SYSTEMS: No history of nausea, vomiting or diarrhea. No acute urinary symptoms. No new neurologic complaints. Rest of the review of systems is negative. ALLERGIES: NO KNOWN ALLERGIES. SOCIAL HISTORY: Positive for extensive tobacco usage. No alcohol. FAMILY HISTORY: No inheritable diseases. HOME MEDICATIONS: Include Colace, prednisone, Xanax, Lasix, Tracleer and Cardizem. PHYSICAL EXAMINATION GENERAL: The patient appears comfortable at rest. He is not short of breath. He is not using accessory muscles for breathing. VITAL SIGNS: Temperature is 98.0, pulse 76, respirations 20, blood pressure 132/66. Oxygen saturations - currently on nasal cannula - 95%. HEENT: Normocephalic, atraumatic. No JVD. CARDIOVASCULAR: Systolic ejection murmur at the lower left sternal border. No S3 gallop. LUNGS: Decreased breath sounds at the bases. Minimal rhonchi. No wheezing. EXTREMITIES: Mild edema. No cyanosis, no clubbing. Calves are nontender to palpation. GI: Abdomen is soft, nontender and nondistended. Bowel sounds are positive. SKIN: No acute rash. NEUROLOGIC: Exam limited at the present time. PERTINENT LABORATORY DATA: Chest x-ray was done early this morning and reviewed. I did compare this chest x-ray to the last chest x-ray done on 08/20/2017. There are chronic changes noted at both lower lobes. There is also a left upper lobe lung mass noted. I do not appreciate any new or significant changes compared to the previous films. CBC: White count 16.0, hemoglobin 10.4, hematocrit 36.1, platelets of 231. Arterial blood gas was done on 45% oxygen. Results are: PH 7.38, pCO2 63, pO2 of 71. Complete metabolic profile: Chloride 93 carbon dioxide 42, glucose 133. Rest of the metabolic profiles within normal limits. IMPRESSION 1. Chest pain - resolving. 2. End-stage chronic obstructive pulmonary disease. 3. Left upper lobe lung mass - the patient/family refused workup in the past. 4. Pulmonary hypertension. 5. Coronary artery disease. PLAN: Again, I did discuss the case with the patient and niece at length. I have also reviewed the chart at length. Apparently, at approximately 3:00 a.m. this morning, the patient awoke with chest pain. He does state that the chest pain is worsened with movement, twisting, or coughing. He was thus admitted for additional evaluation. I did review the chest x-ray as above. I do not appreciate any new or significant changes compared to the previous films. On physical exam, the patient is not in significant bronchospasm. I will start the patient on DuoNeb treatments and decrease the intravenous steroids this morning. The patient also remains on his Tracleer - for his pulmonary hypertension. As above, the patient denies chest pain at the time of my examination. Dr. Loyd (Cardiology) has been called on consult. Again, I did have a long discussion with the niece Racheal (power of employee benefits attorney) this morning. The niece is well aware of the patient's very poor overall outlook. She even inquired about possible hospice placement. The patient is currently a DNR/DNI status. The patient will be admitted to telemetry for additional evaluation. He does feel better this morning, and is clinically improved. Additional pulmonary intervention will be based on the clinical status of the patient. I will discuss the above with the attending physician. Thank you very much for this pulmonary consultation. Fabricio Edmond MD MTDD
[2017-09-08] MEDS ORDERED: BOSENTAN 125 MG PO SCH (10:00)
[2017-09-08] MEDS ORDERED: levoFLOXacin 500 mg in D5W 500 MG/100 ML BAG IVPB SCH (10:00)
[2017-09-08] MEDS ORDERED: Meropenem 1g/NS 100mL IVPB 1 GM/100 ML PIGGYBACK IVPB SCH (10:00)
[2017-09-08] MEDS ORDERED: MethylPREDNISolone 40 mg Vial IVP SCH (10:00)
[2017-09-08] MEDS: MethylPREDNISolone 40 mg Vial IVP SCH ×2 (10:54→21:20)
[2017-09-08] MEDS: diltiaZEM 300 mg/24 Hours CD Cap PO SCH (10:55)
[2017-09-08] MEDS: Hydrocerin(120 gm) TOP SCH ×2 (12:04→17:32)
[2017-09-08] MEDS: Hydrocortisone 1% Cream (30 GM) TOP SCH ×2 (12:04→17:32)
--- NOTE | 2017-09-08 16:44 | CARD ---
APPROVED REPORT EKG Measurement Heart [id number] <Conclusion> Normal sinus rhythm Nonspecific ST and T wave abnormality Prolonged QT Abnormal ECG
[2017-09-08] MEDS: BOSENTAN 125 MG PO SCH (18:57)
--- NOTE | 2017-09-08 21:34 | CON ---
INDICATIONS: Chest pain. HISTORY OF PRESENT ILLNESS: This is a 72-year-old man known to us from prior admissions, admitted through the emergency room with chest pain which he described as a discomfort across the upper chest associated with some shortness of breath. This awoke him from sleep. He called the medics, and was taken to the emergency room. He is admitted to telemetry. This morning, he feels comfortable without chest pain. He has chronic shortness of breath, this was a bit worse recently. There was no orthopnea, PND, syncope, presyncope, lightheadedness, dizziness, vertigo, palpitations, edema, claudication, fever, chills, sputum production, hemoptysis, abdominal pain, nausea, vomiting, diarrhea, constipation, or melena. PAST MEDICAL HISTORY: Notable for COPD on home O2, bronchitis, right upper lobe mass, nonsustained VT, paroxysmal atrial fibrillation, coronary artery disease with remote coronary intervention, sleep apnea, pulmonary hypertension, legally blind, gallbladder surgery, former smoker, former alcohol user. MEDICATIONS AT THE TIME OF ADMISSION: Include Tracleer, vitamin B12, Lasix, Cardizem CD, Xanax, Nexium, Janumet, prednisone. ALLERGIES: THERE ARE NO KNOWN MEDICATION ALLERGIES. SOCIAL HISTORY: He lives at home. He is legally blind. He has assistance of his family. He is a former smoker, former alcohol user. FAMILY HISTORY: Noncontributory. REVIEW OF SYSTEMS: A 10-point review of systems is otherwise unremarkable except as noted above. PHYSICAL EXAMINATION: GENERAL: He is a well-developed male lying in bed in telemetry, in no acute distress. VITAL SIGNS: Notable for sinus rhythm, 76 beats per minute; temperature 98 degrees; blood pressure 132/66; respirations 23; O2 sat 94% using BiPAP and nasal cannula. HEENT: Reveals neck vein distention. No thyromegaly. No carotid bruit appreciated. Mucous membranes are moist. Conjunctivae pink. NECK: Supple. LUNGS: Lung soto with scattered rhonchi. HEART: Examination of the heart reveals normal first and second heart sounds. Soft systolic murmur along the left sternal border. PMI is not palpable. ABDOMEN: Soft. Bowel sounds present. No mass, organomegaly, tenderness, rebound, guarding, CVA tenderness, or palpable abdominal aortic aneurysm. EXTREMITIES: Revealed no cyanosis, clubbing, or edema. NEUROLOGIC: Awake, alert, oriented, blind. PSYCHIATRIC: Normal as to mood and affect. SKIN: Warm and dry. No rash or cellulitis. LABORATORY AND IMAGING: A chest x-ray reveals increased markings, which appeared chronic. It is read as congestive heart failure, possible pleural effusion on the right. It does not mention of left upper lobe mass, which can be seen and was present on CT scan dating back to 2014. EKG reveals regular sinus rhythm, no acute changes. White count 16,000, hemoglobin 10.4, hematocrit 36.1, platelet count 231,000. PT, INR, PTT unremarkable. Blood gases are noted. Electrolytes, BUN, creatinine, blood sugar noted. LFTs are unremarkable. CK less than 20. Troponin less than 0.01. BNP 444. TSH normal. IMPRESSION: Tremaine Salgado is a 72-year-old man with severe end-stage chronic obstructive pulmonary disease on home O2 with frequent respiratory failure and bronchitis with a right upper lobe mass, which he has declined additional workup for; history of coronary artery disease and remote coronary intervention, admitted with chest pain. The first troponin is negative. The EKG does not show acute changes. Additional past medical history includes paroxysmal atrial fibrillation, sleep apnea, pulmonary hypertension, gallbladder surgery. An echocardiogram in February of this year revealed normal left ventricular function, right ventricular enlargement, moderate pulmonary hypertension. He has been in DNR/DNI status. PLAN: At this time, I agree with current plans. We will rule out myocardial infarction. He has had several admissions for this in the recent past. We will continue his usual cardiac medications including Cardizem. I will put him on aspirin. He is getting pulmonary medications. He will have a pulmonary consultation. He is on Lasix 40 b.i.d. He is getting albuterol, Tracleer, methylprednisolone, Protonix, meropenem, insulin coverage. I have discussed the case with Dr. Reyes. I will follow along with you. Overall, a conservative course of cardiac care is anticipated. Aramis Loyd MD MARINO
[2017-09-09] MEDS: Albuterol-Ipratrop 3 mg / 0.5 (3 ml) UD IH SCH ×4 (01:24→21:12)
[2017-09-09 07:11] LABS: GRAN # 11.88 (1.4-6.5); GRAN % 91.6 % (50.0-68.0); HEMATOCRIT 33.8 % (42.0-52.0); LYMPH # 0.7 (1.2-3.4); LYMPH % 5.2 % (22.0-35.0); MEAN CORPUSCULAR HEMOGLOBIN 25.7 pg (25.0-35.0); MEAN CORPUSCULAR HGB CONC 29.9 g/dl (31.0-37.0); MONO # 0.4 (0.1-0.6); MONO % 3.2 % (1.0-6.0); PLATELET COUNT 186 10^3/uL (120.0-450.0); RED CELL DISTRIBUTION WIDTH 16.3 % (11.5-14.5)
--- NOTE | 2017-09-09 07:18 | PN ---
SUBJECTIVE: The patient appears comfortable this morning. He is out of bed, sitting in the chair. He is not short of breath at rest. His chest pain is resolving. PHYSICAL EXAMINATION: VITAL SIGNS: Temperature is 97.4, pulse 63, respirations 18/20, blood pressure 131/57. Oxygen saturation on nasal cannula is 99%. HEENT: Normocephalic, atraumatic. NECK: No JVD. CARDIOVASCULAR: Systolic ejection murmur at the lower left sternal border. No S3 gallop. LUNGS: Decreased breath sounds at the bases. Less rhonchi. No wheezing. EXTREMITIES: Mild edema. No cyanosis, no clubbing. Calves are nontender to palpation. GASTROINTESTINAL: Abdomen is soft, nontender and nondistended. Bowel sounds are positive. SKIN: No acute rash. NEUROLOGIC: Limited at the present time. IMPRESSION: 1. Chest pain-resolving. 2. End-stage chronic obstructive pulmonary disease. 3. Left upper lobe lung mass- patient/family refused workup in the past. 4. Pulmonary hypertension. 5. Coronary artery disease. PLAN: The patient appears comfortable this morning. He is out of bed, sitting in the chair. He is not short of breath at rest. He states that his chest pain has significantly decreased. He states to feeling much better overall. On physical exam, his bronchospasm is mild( at this point in time). In addition, the oxygen saturation on nasal cannula is now 99%. I will continue with the current nebulizer treatments and low-dose intravenous steroids (decreased yesterday) for now. Cardiology evaluation is ongoing. Input by Dr. Loyd is noted. Clinical status of the patient is certainly improved-compared to the initial presentation. However, again, the future status/prognosis for this patient does remain poor. All are aware. I will discuss the above with the attending physician. Fabricio Edmond MD MTDD
[2017-09-09 07:43] LABS: ALKALINE PHOSPHATASE 91 U/L (38-126); ALT/SGPT 34 U/L (7-56); AST/SGOT 18 U/L (17-59); BILIRUBIN,TOTAL 0.4 mg/dL (0.2-1.3); BLOOD UREA NITROGEN 23 mg/dL (7-21); CALCIUM 9.5 mg/dL (8.4-10.5); CHLORIDE 93 mmol/L (98-107); GFR AFRICAN-AMERICAN > 60; GLUCOSE,RANDOM 170 mg/dL (70-110); POTASSIUM 4.6 mmol/L (3.6-5.0); SODIUM 140 mmol/L (132-148); TOTAL PROTEIN 6.7 g/dL (5.8-8.3)
[2017-09-09 07:49] LABS: CARBON DIOXIDE 40 mmol/L (21-33)
[2017-09-09] MEDS: Insulin Lispro (humaLOG) MEDIUM Coverage SC SCH ×3 (08:12→18:04)
[2017-09-09 08:56] LABS: ANISOCYTOSIS SLIGHT; BAND 1 % (0-2); HYPOCHROMIA SLIGHT; NEUTROPHIL 92 % (50.0-70.0); PLATELET ESTIMATE NORMAL (NORMAL)
[2017-09-09 08:57] LABS: LARGE PLATELETS PRESENT
[2017-09-09] MEDS: diltiaZEM 300 mg/24 Hours CD Cap PO SCH (10:14)
[2017-09-09] MEDS: Hydrocortisone 1% Cream (30 GM) TOP SCH ×3 (10:15→18:13)
[2017-09-09] MEDS: MethylPREDNISolone 40 mg Vial IVP SCH ×2 (10:15→21:17)
[2017-09-09] MEDS: BOSENTAN 125 MG PO SCH ×2 (10:16→18:10)
[2017-09-09] MEDS: Hydrocerin(120 gm) TOP SCH ×3 (10:16→18:13)
--- NOTE | 2017-09-09 10:52 | CP.PCM.PN ---
<Dmitri Zurita - Last Filed: 09/09/17 13:11> Subjective - Date & Time of Evaluation Date of Evaluation: 09/09/17 Time of Evaluation: 06:00 - Subjective Subjective: Patient seen and evaluated bedside, aptient was seated comfortably in bed with no complaints. No acute events overnight. Patient stated breathing has improved , patient also has been getting physical therapy and moving around. Objective - Vital Signs/Intake and Output Vital Signs (last 24 hours): Temp Pulse Resp BP Pulse Ox 97.4 F L 74 20 116/63 99 09/09/17 06:00 09/09/17 10:14 09/09/17 06:00 09/09/17 10:14 09/09/17 06:00 Intake and Output: 09/09/17 09/09/17 06:59 18:59 Intake Total 300 Output Total 1450 Balance -1150 - Medications Medications: Current Medications Albuterol/Ipratropium (Duoneb 3 Mg/0.5 Mg (3 Ml) Ud) 3 ml IH [id number] [facility] Last Admin: 09/09/17 08:13 Dose: 3 ml Albuterol/Ipratropium (Duoneb 3 Mg/0.5 Mg (3 Ml) Ud) 3 ml IH Q2H PRN PRN Reason: Shortness of Breath Alprazolam (Xanax) 0.25 mg PO BID [facility] PRN Reason: Protocol Stop: 09/15/17 10:01 Last Admin: 09/09/17 10:13 Dose: 0.25 mg Cyanocobalamin (Vitamin B12 1000 Mcg Tab) 500 mcg PO DAILY [facility] Last Admin: 09/09/17 10:19 Dose: 500 mcg Diltiazem HCl (Cardizem Cd) 300 mg PO DAILY [facility] Last Admin: 09/09/17 10:14 Dose: 300 mg Docusate Sodium (Colace) 100 mg PO TID [facility] Last Admin: 09/09/17 10:14 Dose: Not Given Doxycycline Hyclate (Doryx) 100 mg PO Q12 [facility] PRN Reason: Protocol Last Admin: 09/09/17 10:16 Dose: 100 mg Furosemide (Lasix) 40 mg PO BID [facility] Last Admin: 09/09/17 10:14 Dose: 40 mg Home Med (Home Med) 1 unit PO BID [facility] Last Admin: 09/09/17 10:16 Dose: 1 unit Hydrocortisone (Cortizone 1% Cream) 0 gm TOP BID [facility] Last Admin: 09/09/17 10:15 Dose: 1 applic Insulin Human Lispro (Humalog Med) 0 units SC ACHS [facility] PRN Reason: Protocol Last Admin: 09/09/17 08:12 Dose: 1 units Methylprednisolone (Solu-Medrol) 30 mg IVP Q12 [facility] Last Admin: 09/09/17 10:15 Dose: 30 mg Multi-Ingredient Cream (Hydrocerin Cream) 0 ea TOP BID [facility] Last Admin: 09/09/17 10:16 Dose: 1 appl Pantoprazole Sodium (Protonix Inj) 40 mg IVP DAILY [facility] Last Admin: 09/09/17 10:15 Dose: 40 mg - Labs Labs: 09/09/17 06:40 09/09/17 06:40 PT 12.2 SECONDS (9.4-12.5) 09/08/17 03:50 INR 1.11 (0.93-1.08) H 09/08/17 03:50 APTT 26.4 Seconds (25.1-36.5) 09/08/17 03:50 - Constitutional Appears: No Acute Distress, Chronically Ill - Head Exam Head Exam: ATRAUMATIC, NORMAL INSPECTION, NORMOCEPHALIC - Eye Exam Additional comments: patient decreased visual acuity - ENT Exam ENT Exam: Normal Exam - Neck Exam Neck Exam: Normal Inspection - Respiratory Exam Respiratory Exam: Clear to Ausculation Bilateral, NORMAL BREATHING PATTERN - Cardiovascular Exam Cardiovascular Exam: REGULAR RHYTHM, +S1, +S2 - GI/Abdominal Exam GI & Abdominal Exam: Normal Bowel Sounds - Extremities Exam Additional comments: psoratiac plaques on lower extremeties - Neurological Exam Neurological Exam: Alert, Awake, Oriented x3 - Psychiatric Exam Psychiatric exam: Normal Affect - Skin Skin Exam: Normal Color Assessment and Plan - Assessment and Plan (Free Text) Assessment: This is a 72 year old male with a past medical history of COPD, chf, hypertension, diabetes, blindness, gerd, CAD, left lung mass, psoriasis, and atrial fibrillation who comes in for copd exacerbation and chest pain. Plan: 1.COPD exacerbation -Duonebs prn. Scheduled Steroids -methylprednisoline 30mg q12 -Doxycline continue -BIPAP at night -Pulmonary consult, [place], follow recs 2. Chest pain r/o acs -EKG done in e.d. showed nsr with no acute st-t changes -Troponins negative x3 -TSH: 2.58 -Lipids: total cholesterol 137 -A1c: 7.0 3.h/o Atrial fibrillation -continue with Cardizem 4. DM -ISS -Accuchecks ACHS 5. Pulmonary hypertension -Continue home meds 6.h/o Diastolic CHF -continue with Lasix 7. Constipation -continue with home meds GI ppx -Protonix DVT ppx -SCD's <Andriy Reyes - Last Filed: 09/09/17 14:16> Objective - Vital Signs/Intake and Output Vital Signs (last 24 hours): Temp Pulse Resp BP Pulse Ox 99.2 F 87 19 122/58 L 99 09/09/17 11:56 09/09/17 11:56 09/09/17 11:56 09/09/17 11:56 09/09/17 06:00 Intake and Output: 09/09/17 09/09/17 06:59 18:59 Intake Total 300 Output Total 1450 Balance -1150 - Medications Medications: Current Medications Albuterol/Ipratropium (Duoneb 3 Mg/0.5 Mg (3 Ml) Ud) 3 ml IH [id number] [facility] Last Admin: 09/09/17 13:30 Dose: 3 ml Albuterol/Ipratropium (Duoneb 3 Mg/0.5 Mg (3 Ml) Ud) 3 ml IH Q2H PRN PRN Reason: Shortness of Breath Alprazolam (Xanax) 0.25 mg PO BID [facility] PRN Reason: Protocol Stop: 09/15/17 10:01 Last Admin: 09/09/17 10:13 Dose: 0.25 mg Cyanocobalamin (Vitamin B12 1000 Mcg Tab) 500 mcg PO DAILY [facility] Last Admin: 09/09/17 10:19 Dose: 500 mcg Diltiazem HCl (Cardizem Cd) 300 mg PO DAILY [facility] Last Admin: 09/09/17 10:14 Dose: 300 mg Docusate Sodium (Colace) 100 mg PO TID [facility] Last Admin: 09/09/17 13:17 Dose: Not Given Doxycycline Hyclate (Doryx) 100 mg PO Q12 [facility] PRN Reason: Protocol Last Admin: 09/09/17 10:16 Dose: 100 mg Furosemide (Lasix) 40 mg PO BID [facility] Last Admin: 09/09/17 10:14 Dose: 40 mg Home Med (Home Med) 1 unit PO BID [facility] Last Admin: 09/09/17 10:16 Dose: 1 unit Hydrocortisone (Cortizone 1% Cream) 0 gm TOP BID [facility] Last Admin: 09/09/17 10:15 Dose: 1 applic Insulin Human Lispro (Humalog Med) 0 units SC ACHS [facility] PRN Reason: Protocol Last Admin: 09/09/17 11:55 Dose: Not Given Methylprednisolone (Solu-Medrol) 30 mg IVP Q12 [facility] Last Admin: 09/09/17 10:15 Dose: 30 mg Multi-Ingredient Cream (Hydrocerin Cream) 0 ea TOP BID [facility] Last Admin: 09/09/17 10:16 Dose: 1 appl Pantoprazole Sodium (Protonix Inj) 40 mg IVP DAILY [facility] Last Admin: 09/09/17 10:15 Dose: 40 mg - Labs Labs: 09/09/17 06:40 09/09/17 06:40 PT 12.2 SECONDS (9.4-12.5) 09/08/17 03:50 INR 1.11 (0.93-1.08) H 09/08/17 03:50 APTT 26.4 Seconds (25.1-36.5) 09/08/17 03:50 Attending/Attestation - Attestation I have personally seen and examined this patient.: Yes I have fully participated in the care of the patient.: Yes I have reviewed all pertinent clinical information, including history, physical exam and plan: Yes Notes (Text): 09/09/17 14:14 Attending note ; Patient seen and examined with resident . Patient is a 72 year old male with a past medical history of COPD, oxygen dependent, BiPAP dependent, severe pulmonary hypertension, chf, hypertension, diabetes, blindness, gerd, CAD, left lung mass, psoriasis is admitted copd exacerbation and chest pain. Pulmonary evaluation appreciated. Taper IV steroids. Continue DuoNeb. Clinically improving. Chest pain; resolved. Mostly musculoskeletal pain. Cardiac enzymes negative. Case discussed with roving inspector in detail. Needs close outpatient follow-up. Possible discharge home tomorrow if clinically stable. Patient will follow-up with PMD upon discharge. Follow-up with pulmonary .
--- NOTE | 2017-09-09 14:01 | PN ---
DATE: 09/09/2017 SUBJECTIVE: The patient is seen sitting in a chair on telemetry. He is comfortable at the present time. He denies any chest pain. CURRENT MEDICATIONS: Include diltiazem 300 mg daily, Colace, doxycycline, DuoNeb inhaler, Tracleer 125 mg daily, insulin coverage, Lasix 40 mg b.i.d., Protonix 40 mg daily, Solu-Medrol, and Xanax p.r.n. PHYSICAL EXAMINATION: GENERAL: He is an elderly man who appears comfortable at rest. VITAL SIGNS: Blood pressure 116/60 with pulse of 74 and sinus, respirations are 14, and he has intermittent sinus bradycardia. HEAD AND NECK: JVD is present. CHEST: Bilateral scattered rhonchi heard. HEART: PMI displaced laterally with systolic murmur at the low left sternal border. GASTROINTESTINAL: The abdomen is soft and nontender with normoactive bowel sounds. EXTREMITIES: No edema. DIAGNOSTIC DATA: Potassium of 4.6, BUN and creatinine are 23 and 0.9, and glucose is 170. White count is 13.0, hemoglobin and hematocrit are 10.1 and 33.8 with the platelet count of 186,000. Intake and output of 300/1450 from yesterday. IMPRESSION: 1. Coronary artery disease, status post remote percutaneous coronary intervention and recent chest pain. Cardiac enzymes have been negative. 2. Pulmonary hypertension. 3. Severe chronic obstructive pulmonary disease. 4. Lung mass, refusing workup. RECOMMENDATIONS: His current cardiac management appears most appropriate at this time. Conservative care will continue. If he has recurrent chest pain with EKG changes or something more suspicious for acute cardiac ischemia, further evaluation with stress testing or catheterization can be considered, however, at this time conservative care appears most appropriate. I will be happy to follow along as needed. Severo Caldera MD
[2017-09-10] MEDS: Insulin Lispro (humaLOG) MEDIUM Coverage SC SCH ×3 (00:15→11:40)
[2017-09-10] MEDS: Albuterol-Ipratrop 3 mg / 0.5 (3 ml) UD IH SCH ×3 (01:21→13:22)
[2017-09-10 06:13] VITALS: TEMP 96.4; O2SAT 100
[2017-09-10 06:40] LABS: GRAN # 13.71 (1.4-6.5); GRAN % 92.2 % (50.0-68.0); HEMATOCRIT 33.3 % (42.0-52.0); LYMPH # 0.7 (1.2-3.4); MEAN CELL VOLUME 85.2 fl (80.0-105.0); MEAN CORPUSCULAR HEMOGLOBIN 25.1 pg (25.0-35.0); MEAN CORPUSCULAR HGB CONC 29.4 g/dl (31.0-37.0); MEAN PLATELET VOLUME 10.3 fl (7.0-11.0); MONO # 0.4 (0.1-0.6); MONO % 2.8 % (1.0-6.0); RED CELL DISTRIBUTION WIDTH 16.3 % (11.5-14.5); WHITE BLOOD COUNT 14.9 10^3/ul (4.5-11.0)
[2017-09-10 06:53] LABS: ALKALINE PHOSPHATASE 83 U/L (38-126); ALT/SGPT 26 U/L (7-56); AST/SGOT 16 U/L (17-59); BILIRUBIN,TOTAL 0.4 mg/dL (0.2-1.3); BLOOD UREA NITROGEN 27 mg/dL (7-21); CHLORIDE 91 mmol/L (98-107); GFR AFRICAN-AMERICAN > 60; GLUCOSE,RANDOM 183 mg/dL (70-110); POTASSIUM 4.3 mmol/L (3.6-5.0); SODIUM 139 mmol/L (132-148); TOTAL PROTEIN 6.3 g/dL (5.8-8.3)
[2017-09-10 07:13] LABS: CARBON DIOXIDE 40 mmol/L (21-33)
--- NOTE | 2017-09-10 08:55 | CP.PCM.PN ---
Subjective - Date & Time of Evaluation Date of Evaluation: 09/10/17 Time of Evaluation: 07:00 - Subjective Subjective: Stable on 2R. No CP. + shoulder pain at times. V/S noted. RSR/S. Binu PE: Lungs: clear Cor.: S1S2 Abd.: soft Ext.: no edema Neuro.: alert I/O = 120/1700 Labs noted. Trops neg. x 3 Objective - Vital Signs/Intake and Output Vital Signs (last 24 hours): Temp Pulse Resp BP Pulse Ox 96.4 F L 54 L 15 131/68 100 09/10/17 06:00 09/10/17 06:00 09/10/17 06:00 09/10/17 06:00 09/10/17 06:00 Intake and Output: 09/10/17 09/10/17 06:59 18:59 Intake Total 120 Output Total 1700 Balance -1580 - Medications Medications: Current Medications Albuterol/Ipratropium (Duoneb 3 Mg/0.5 Mg (3 Ml) Ud) 3 ml IH [id number] [facility] Last Admin: 09/10/17 07:52 Dose: 3 ml Albuterol/Ipratropium (Duoneb 3 Mg/0.5 Mg (3 Ml) Ud) 3 ml IH Q2H PRN PRN Reason: Shortness of Breath Alprazolam (Xanax) 0.25 mg PO BID [facility] PRN Reason: Protocol Stop: 09/15/17 10:01 Last Admin: 09/09/17 18:05 Dose: 0.25 mg Aspirin (Aspirin Chewable) 81 mg PO DAILY [facility] Cyanocobalamin (Vitamin B12 1000 Mcg Tab) 500 mcg PO DAILY [facility] Last Admin: 09/09/17 10:19 Dose: 500 mcg Diltiazem HCl (Cardizem Cd) 300 mg PO DAILY [facility] Last Admin: 09/09/17 10:14 Dose: 300 mg Docusate Sodium (Colace) 100 mg PO TID [facility] Last Admin: 09/09/17 20:00 Dose: Not Given Doxycycline Hyclate (Doryx) 100 mg PO Q12 [facility] PRN Reason: Protocol Last Admin: 09/09/17 21:16 Dose: 100 mg Furosemide (Lasix) 40 mg PO BID [facility] Last Admin: 09/09/17 18:05 Dose: 40 mg Home Med (Home Med) 1 unit PO BID [facility] Last Admin: 09/09/17 18:10 Dose: 1 unit Hydrocortisone (Cortizone 1% Cream) 0 gm TOP BID [facility] Last Admin: 09/09/17 18:13 Dose: Not Given Insulin Human Lispro (Humalog Med) 0 units SC ACHS [facility] PRN Reason: Protocol Last Admin: 09/10/17 00:15 Dose: Not Given Methylprednisolone (Solu-Medrol) 30 mg IVP Q12 [facility] Last Admin: 09/09/17 21:17 Dose: 30 mg Multi-Ingredient Cream (Hydrocerin Cream) 0 ea TOP BID [facility] Last Admin: 09/09/17 18:13 Dose: Not Given Pantoprazole Sodium (Protonix Inj) 40 mg IVP DAILY [facility] Last Admin: 09/09/17 10:15 Dose: 40 mg - Labs Labs: 09/10/17 06:15 09/10/17 06:15 PT 12.2 SECONDS (9.4-12.5) 09/08/17 03:50 INR 1.11 (0.93-1.08) H 09/08/17 03:50 APTT 26.4 Seconds (25.1-36.5) 09/08/17 03:50 Assessment and Plan - Assessment and Plan (Free Text) Assessment: Chest Pain, neg. trops x3 sets COPD/Home O2/Bronchitis Lung mass, he declines w/u CAD/PCI PAF NSVT PH, moderate on echo 02/23 GB Surgery Former Smoker Former ETOH Plan: Pulm tx./As per Dr. Edmond ASA Continue diltiazem. Lasix OOB to chair as randa./PT
[2017-09-10] MEDS: diltiaZEM 300 mg/24 Hours CD Cap PO SCH (10:55)
[2017-09-10] MEDS: MethylPREDNISolone 40 mg Vial IVP SCH (10:57)
[2017-09-10] MEDS: Hydrocerin(120 gm) TOP SCH (10:58)
[2017-09-10] MEDS: Hydrocortisone 1% Cream (30 GM) TOP SCH (13:25)
[2017-09-10] MEDS: BOSENTAN 125 MG PO SCH (13:29)
[2017-09-10 14:13] VITALS: BP 115/57; PULSE 74; RESP 16
--- NOTE | 2017-09-10 14:29 | CP.PCM.DIS ---
<Dmitri Zurita - Last Filed: 09/11/17 14:10> Provider - Provider Date of Admission: 09/08/17 05:46 Attending physician: Andriy Reyes MD Primary care physician: Jose C Ambrocio MD Consults: Pulmonology Cardiology Time Spent in preparation of Discharge (in minutes): 70 Hospital Course - Lab Results Lab Results: Most Recent Lab Values WBC 14.9 10^3/ul (4.5-11.0) H 09/10/17 06:15 RBC 3.91 10^6/uL (3.5-6.1) 09/10/17 06:15 Hgb 9.8 g/dL (14.0-18.0) L 09/10/17 06:15 Hct 33.3 % (42.0-52.0) L 09/10/17 06:15 MCV 85.2 fl (80.0-105.0) 09/10/17 06:15 MCH 25.1 pg (25.0-35.0) 09/10/17 06:15 MCHC 29.4 g/dl (31.0-37.0) L 09/10/17 06:15 RDW 16.3 % (11.5-14.5) H 09/10/17 06:15 Plt Count 217 10^3/uL (120.0-450.0) 09/10/17 06:15 MPV 10.3 fl (7.0-11.0) 09/10/17 06:15 Gran % 92.2 % (50.0-68.0) H 09/10/17 06:15 Lymph % (Auto) 5.0 % (22.0-35.0) L 09/10/17 06:15 [place] % (Auto) 2.8 % (1.0-6.0) 09/10/17 06:15 Eos % (Auto) 0.0 % (1.5-5.0) L 09/10/17 06:15 Baso % (Auto) 0.0 % (0.0-3.0) 09/10/17 06:15 Gran # 13.71 (1.4-6.5) H 09/10/17 06:15 Lymph # 0.7 (1.2-3.4) L 09/10/17 06:15 [place] # 0.4 (0.1-0.6) 09/10/17 06:15 Eos # 0.0 (0.0-0.7) 09/10/17 06:15 Baso # 0.00 K/mm3 (0.0-2.0) 09/10/17 06:15 Neutrophils % (Manual) 92 % (50.0-70.0) H 09/09/17 06:40 Band Neutrophils % 1 % (0-2) 09/09/17 06:40 Lymphocytes % (Manual) 6 % (22.0-35.0) L 09/09/17 06:40 Monocytes % (Manual) 1 % (1.0-6.0) 09/09/17 06:40 Platelet Evaluation Normal (NORMAL) 09/09/17 06:40 Large Platelets Present 09/09/17 06:40 Hypochromasia Slight 09/09/17 06:40 Anisocytosis (manual) Slight 09/09/17 06:40 PT 12.2 SECONDS (9.4-12.5) 09/08/17 03:50 INR 1.11 (0.93-1.08) H 09/08/17 03:50 APTT 26.4 Seconds (25.1-36.5) 09/08/17 03:50 pCO2 63 mm/Hg (35-45) H 09/08/17 06:15 pO2 71.0 mm/Hg (80-100) L 09/08/17 06:15 HCO3 37.3 mmol/L (21-28) H 09/08/17 06:15 ABG pH 7.38 (7.35-7.45) 09/08/17 06:15 ABG Total CO2 39.2 mmol.L (22-28) H 09/08/17 06:15 ABG O2 Saturation 96.9 % (95-98) 09/08/17 06:15 ABG O2 Content 12.3 ML/dl (15-23) L 09/08/17 06:15 ABG Base Excess 10.5 mmol/L (-2.0-3.0) H 09/08/17 06:15 ABG Hemoglobin 9.3 g/dL (11.7-17.4) L 09/08/17 06:15 ABG Carboxyhemoglobin 2.7 % (0.5-1.5) H 09/08/17 06:15 POC ABG HHb (Measured) 3.0 % (0-5) 09/08/17 06:15 ABG Methemoglobin 1.2 % (0.0-3.0) 09/08/17 06:15 ABG O2 Capacity 12.7 mL/dl (16-24) L 09/08/17 06:15 VBG pH 7.34 (7.32-7.43) 09/08/17 03:50 VBG pCO2 84.0 (40-60) H* 09/08/17 03:50 VBG HCO3 45.3 mmol/l (21-28) H 09/08/17 03:50 VBG Total CO2 47.9 mmol.L (22-28) H 09/08/17 03:50 VBG O2 Sat (Calc) 78.2 % (40-65) H 09/08/17 03:50 VBG Base Excess 15.3 mmol/L (0.0-2.0) H 09/08/17 03:50 VBG Potassium 3.7 mmol/L (3.6-5.2) 09/08/17 03:50 Hgb O2 Saturation 93.1 % (95.0-98.0) L 09/08/17 06:15 Sodium 140.0 mmol/L (132-148) 09/08/17 03:50 Chloride 100.0 mmol/L (98-107) 09/08/17 03:50 Glucose 134 mg/dl (75-110) H 09/08/17 03:50 Lactate 0.9 mmol/L (0.7-2.1) 09/08/17 03:50 FiO2 45.0 % 09/08/17 06:15 Sodium 139 mmol/L (132-148) 09/10/17 06:15 Potassium 4.3 mmol/L (3.6-5.0) 09/10/17 06:15 Chloride 91 mmol/L (98-107) L 09/10/17 06:15 Carbon Dioxide 40 mmol/L (21-33) H 09/10/17 06:15 Anion Gap 12 (10-20) 09/10/17 06:15 BUN 27 mg/dL (7-21) H 09/10/17 06:15 Creatinine 1.0 mg/dL (0.8-1.5) 09/10/17 06:15 Est GFR ( Amer) > 60 09/10/17 06:15 Est GFR (Non-Af Amer) > 60 09/10/17 06:15 POC Glucose (mg/dL) 140 mg/dL (65-110) H 09/10/17 11:28 Random Glucose 183 mg/dL (70-110) H 09/10/17 06:15 Hemoglobin A1c 7.0 % (4.2-6.5) H 09/08/17 03:02 Calcium 9.0 mg/dL (8.4-10.5) 09/10/17 06:15 Total Bilirubin 0.4 mg/dL (0.2-1.3) 09/10/17 06:15 AST 16 U/L (17-59) L 09/10/17 06:15 ALT 26 U/L (7-56) 09/10/17 06:15 Alkaline Phosphatase 83 U/L (38-126) 09/10/17 06:15 Lactate Dehydrogenase 339 U/L (333-699) 09/08/17 03:50 Total Creatine Kinase < 20 U/L (35-230) L 09/08/17 03:50 Troponin I < 0.01 ng/mL 09/08/17 20:32 NT-Pro-B Natriuret Pep 444 pg/mL (0-450) 09/08/17 03:50 Total Protein 6.3 g/dL (5.8-8.3) 09/10/17 06:15 Albumin 3.2 g/dL (3.0-4.8) 09/10/17 06:15 Globulin 3.1 gm/dL 09/10/17 06:15 Albumin/Globulin Ratio 1.0 (1.1-1.8) L 09/10/17 06:15 Triglycerides 156 mg/dL (35-160) 09/08/17 03:02 Cholesterol 137 mg/dL (130-200) 09/08/17 03:02 LDL Cholesterol Direct 75 mg/dL (0-129) 09/08/17 03:02 HDL Cholesterol 31 mg/dL (29-60) 09/08/17 03:02 TSH 3rd Generation 2.58 mIU/mL (0.46-4.68) 09/08/17 03:02 Venous Blood Potassium 3.7 mmol/L (3.6-5.2) 09/08/17 03:50 - Hospital Course Hospital Course: This is a 72 year old male with a past medical history of COPD, chf, hypertension, diabetes, blindness, gerd, CAD, left lung mass, psoriasis, and atrial fibrillation who came in for copd exacerbation and chest pain. EKG was done and obtained. Blood work was ordred, home meds constinued. Patient started on antibiotics and bipap. Cardiology and Pulmonology were consulted. Troponins were trended and negative times 3. A1C, TSH and Lipid panel were obtained. He was place don insulin sliding scale. Patients clinical course improved, breathing improved, chest pain resolved and was discharged to home with medications reconciled. Spoke to the patients niece and she was aware of the plan. Discharge Exam - Head Exam Head Exam: ATRAUMATIC, NORMAL INSPECTION, NORMOCEPHALIC - Eye Exam Eye Exam: EOMI, Normal appearance, PERRL Pupil Exam: NORMAL ACCOMODATION, PERRL - Respiratory Exam Respiratory Exam: NORMAL BREATHING PATTERN - Cardiovascular Exam Cardiovascular Exam: REGULAR RHYTHM, +S1, +S2 - GI/Abdominal Exam GI & Abdominal Exam: Normal Bowel Sounds - Extremities Exam Extremities exam: pedal edema - Neurological Exam Neurological exam: Alert, Oriented x3 - Psychiatric Exam Psychiatric exam: Normal Affect - Skin Skin Exam: Normal Color Discharge Plan - Follow Up Plan Condition: FAIR Disposition: DISCHARGED TO HOME CARE Instructions: Chest Pain (GEN) Additional Instructions: 1. Follow up with PMd dR. Ambrocio in 1 week. 2. Follow up with Dr. Edmond in 3 days. If you have a temperature over 101, trouble breathing, feel extremely weak, have chest pain that may possibly radiate to your arms please go to your nearest Emergency Department. Referrals: Jose C Ambrocio MD [Primary Care Provider] - <Andriy Reyes - Last Filed: 09/11/17 15:53> Provider - Provider Date of Admission: 09/08/17 05:46 Attending physician: Andriy Reyes MD Primary care physician: Jose C Ambrocio MD Hospital Course - Lab Results Lab Results: Most Recent Lab Values WBC 14.9 10^3/ul (4.5-11.0) H 09/10/17 06:15 RBC 3.91 10^6/uL (3.5-6.1) 09/10/17 06:15 Hgb 9.8 g/dL (14.0-18.0) L 09/10/17 06:15 Hct 33.3 % (42.0-52.0) L 09/10/17 06:15 MCV 85.2 fl (80.0-105.0) 09/10/17 06:15 MCH 25.1 pg (25.0-35.0) 09/10/17 06:15 MCHC 29.4 g/dl (31.0-37.0) L 09/10/17 06:15 RDW 16.3 % (11.5-14.5) H 09/10/17 06:15 Plt Count 217 10^3/uL (120.0-450.0) 09/10/17 06:15 MPV 10.3 fl (7.0-11.0) 09/10/17 06:15 Gran % 92.2 % (50.0-68.0) H 09/10/17 06:15 Lymph % (Auto) 5.0 % (22.0-35.0) L 09/10/17 06:15 [place] % (Auto) 2.8 % (1.0-6.0) 09/10/17 06:15 Eos % (Auto) 0.0 % (1.5-5.0) L 09/10/17 06:15 Baso % (Auto) 0.0 % (0.0-3.0) 09/10/17 06:15 Gran # 13.71 (1.4-6.5) H 09/10/17 06:15 Lymph # 0.7 (1.2-3.4) L 09/10/17 06:15 [place] # 0.4 (0.1-0.6) 09/10/17 06:15 Eos # 0.0 (0.0-0.7) 09/10/17 06:15 Baso # 0.00 K/mm3 (0.0-2.0) 09/10/17 06:15 Neutrophils % (Manual) 92 % (50.0-70.0) H 09/09/17 06:40 Band Neutrophils % 1 % (0-2) 09/09/17 06:40 Lymphocytes % (Manual) 6 % (22.0-35.0) L 09/09/17 06:40 Monocytes % (Manual) 1 % (1.0-6.0) 09/09/17 06:40 Platelet Evaluation Normal (NORMAL) 09/09/17 06:40 Large Platelets Present 09/09/17 06:40 Hypochromasia Slight 09/09/17 06:40 Anisocytosis (manual) Slight 09/09/17 06:40 PT 12.2 SECONDS (9.4-12.5) 09/08/17 03:50 INR 1.11 (0.93-1.08) H 09/08/17 03:50 APTT 26.4 Seconds (25.1-36.5) 09/08/17 03:50 pCO2 63 mm/Hg (35-45) H 09/08/17 06:15 pO2 71.0 mm/Hg (80-100) L 09/08/17 06:15 HCO3 37.3 mmol/L (21-28) H 09/08/17 06:15 ABG pH 7.38 (7.35-7.45) 09/08/17 06:15 ABG Total CO2 39.2 mmol.L (22-28) H 09/08/17 06:15 ABG O2 Saturation 96.9 % (95-98) 09/08/17 06:15 ABG O2 Content 12.3 ML/dl (15-23) L 09/08/17 06:15 ABG Base Excess 10.5 mmol/L (-2.0-3.0) H 09/08/17 06:15 ABG Hemoglobin 9.3 g/dL (11.7-17.4) L 09/08/17 06:15 ABG Carboxyhemoglobin 2.7 % (0.5-1.5) H 09/08/17 06:15 POC ABG HHb (Measured) 3.0 % (0-5) 09/08/17 06:15 ABG Methemoglobin 1.2 % (0.0-3.0) 09/08/17 06:15 ABG O2 Capacity 12.7 mL/dl (16-24) L 09/08/17 06:15 VBG pH 7.34 (7.32-7.43) 09/08/17 03:50 VBG pCO2 84.0 (40-60) H* 09/08/17 03:50 VBG HCO3 45.3 mmol/l (21-28) H 09/08/17 03:50 VBG Total CO2 47.9 mmol.L (22-28) H 09/08/17 03:50 VBG O2 Sat (Calc) 78.2 % (40-65) H 09/08/17 03:50 VBG Base Excess 15.3 mmol/L (0.0-2.0) H 09/08/17 03:50 VBG Potassium 3.7 mmol/L (3.6-5.2) 09/08/17 03:50 Hgb O2 Saturation 93.1 % (95.0-98.0) L 09/08/17 06:15 Sodium 140.0 mmol/L (132-148) 09/08/17 03:50 Chloride 100.0 mmol/L (98-107) 09/08/17 03:50 Glucose 134 mg/dl (75-110) H 09/08/17 03:50 Lactate 0.9 mmol/L (0.7-2.1) 09/08/17 03:50 FiO2 45.0 % 09/08/17 06:15 Sodium 139 mmol/L (132-148) 09/10/17 06:15 Potassium 4.3 mmol/L (3.6-5.0) 09/10/17 06:15 Chloride 91 mmol/L (98-107) L 09/10/17 06:15 Carbon Dioxide 40 mmol/L (21-33) H 09/10/17 06:15 Anion Gap 12 (10-20) 09/10/17 06:15 BUN 27 mg/dL (7-21) H 09/10/17 06:15 Creatinine 1.0 mg/dL (0.8-1.5) 09/10/17 06:15 Est GFR ( Amer) > 60 09/10/17 06:15 Est GFR (Non-Af Amer) > 60 09/10/17 06:15 POC Glucose (mg/dL) 140 mg/dL (65-110) H 09/10/17 11:28 Random Glucose 183 mg/dL (70-110) H 09/10/17 06:15 Hemoglobin A1c 7.0 % (4.2-6.5) H 09/08/17 03:02 Calcium 9.0 mg/dL (8.4-10.5) 09/10/17 06:15 Total Bilirubin 0.4 mg/dL (0.2-1.3) 09/10/17 06:15 AST 16 U/L (17-59) L 09/10/17 06:15 ALT 26 U/L (7-56) 09/10/17 06:15 Alkaline Phosphatase 83 U/L (38-126) 09/10/17 06:15 Lactate Dehydrogenase 339 U/L (333-699) 09/08/17 03:50 Total Creatine Kinase < 20 U/L (35-230) L 09/08/17 03:50 Troponin I < 0.01 ng/mL 09/08/17 20:32 NT-Pro-B Natriuret Pep 444 pg/mL (0-450) 09/08/17 03:50 Total Protein 6.3 g/dL (5.8-8.3) 09/10/17 06:15 Albumin 3.2 g/dL (3.0-4.8) 09/10/17 06:15 Globulin 3.1 gm/dL 09/10/17 06:15 Albumin/Globulin Ratio 1.0 (1.1-1.8) L 09/10/17 06:15 Triglycerides 156 mg/dL (35-160) 09/08/17 03:02 Cholesterol 137 mg/dL (130-200) 09/08/17 03:02 LDL Cholesterol Direct 75 mg/dL (0-129) 09/08/17 03:02 HDL Cholesterol 31 mg/dL (29-60) 09/08/17 03:02 TSH 3rd Generation 2.58 mIU/mL (0.46-4.68) 09/08/17 03:02 Venous Blood Potassium 3.7 mmol/L (3.6-5.2) 09/08/17 03:50 Attending/Attestation - Attestation I have personally seen and examined this patient.: Yes I have fully participated in the care of the patient.: Yes I have reviewed all pertinent clinical information, including history, physical exam and plan: Yes Notes (Text): 09/11/17 15:51 Discharge summary for 09/10/17. Attending note; Patient seen and examined with resident. Patient is a 72 year old male with a past medical history of COPD, oxygen dependent, BiPAP dependent, severe pulmonary hypertension, chf, hypertension, diabetes, blindness, gerd, CAD, left lung mass, psoriasis is admitted copd exacerbation and chest pain. Pulmonary evaluation appreciated. Treated with roids. Continue DuoNeb. Clinically improving. back to baseline . Continue oxygen during daytime and BiPAP at night. Chest pain; resolved. Mostly musculoskeletal pain. Cardiac enzymes negative. Case discussed with recenterer in detail. Discharge home today . Patient will follow-up with PMD upon discharge. Follow-up with pulmonary . Diagnosis ; Atypical chest pain COPD pulmonary hypertension oxygen and BiPAP dependent Diabetes CAD
== END 2017-09-10 17:10 | disposition home health service (06) | DRG 191 ==
LOC: ED 03:39 → ERH 05:46 → 2RSO 06:50
PROVIDERS: ADMIT Hospitalist; ATTEND Internal Medicine
PROC: 5A09357 Assistance with Respiratory Ventilation, Less than 24 Consecutive Hours, Continuous Positive Airway Pressure (ICD-10-PCS; principal; 2017-09-10)
DX: J44.1 Chronic obstructive pulmonary disease with (acute) exacerbation (principal); I50.30 Unspecified diastolic (congestive) heart failure; I47.2 Ventricular tachycardia; I11.0 Hypertensive heart disease with heart failure; I27.20 Pulmonary hypertension, unspecified; I48.0 Paroxysmal atrial fibrillation; E11.9 Type 2 diabetes mellitus without complications; H54.8 Legal blindness, as defined in USA; K21.9 Gastro-esophageal reflux disease without esophagitis; L40.9 Psoriasis, unspecified; I25.10 Atherosclerotic heart disease of native coronary artery without angina pectoris; K59.00 Constipation, unspecified; R91.8 Other nonspecific abnormal finding of lung field; Z66 Do not resuscitate; R07.89 Other chest pain; Z99.81 Dependence on supplemental oxygen; Z87.891 Personal history of nicotine dependence; Z79.84 Long term (current) use of oral hypoglycemic drugs

== ENCOUNTER 2017-10-01 06:46 | Inpatient (IN) | payer MEDICARE, OTHER ==
--- NOTE | 2017-10-01 07:39 | ED PDOC ---
Arrival/HPI - General Chief Complaint: Shortness Of Breath Time Seen by Provider: 10/01/17 07:17 Historian: Patient - History of Present Illness Narrative History of Present Illness (Text): 10/01/17 07:20 A 72 year old male whose past medical history includes COPD, Pneumonia, Atrial fibrillation, CHF, cellulitis, lung mass, anemia, hypercapnic respiratory failure, and hypercapnia, presents to the emergency department via EMS accompanied by status post fall and difficulty breathing. The patient's states the patient was attempting to put his life alert on the night stand while in bed and he fell off the bed last night. The patient denies hitting anything during the fall, but has left sided back pain. This morning the patient had difficulty breathing and that is when his called for EMS services. The patient's notes that the patient is on around the clock oxygen about 4L a day and is on bipap at night. She notes the patient has had a decreased apetite for the last 4 days. The patient admits to having a chronic wet cough and right sided musculoskeletal pain. He denies any sick contacts at home, fever, runny nose, chest pain, or any other complaints at this time. Upon evaluation the patient states he is "feeling better, at least for now." Time/Duration: 24 hours Symptom Course: Improving Activities at Onset: Rest Context: Home Past Medical History - Provider Review Nursing Documentation Reviewed: Yes - Infectious Disease Hx of Infectious Diseases: None - Tetanus Immunization Tetanus Immunization: Up to Date - Reproductive Currently : No Currently Lactating: No - Cardiac Hx Cardiac Disorders: Yes Hx Congestive Heart Failure: Yes Hx Hypertension: Yes - Pulmonary Hx Chronic Obstructive Pulmonary Disease (COPD): Yes (end stage) - Neurological Hx Neurological Disorder: Yes (Blind since the age of 1.) - HEENT Hx Blind: Yes (since age 1) - Renal Hx Renal Failure: Yes (renal failure) - Endocrine/Metabolic Hx Diabetes Mellitus Type 2: Yes - Hematological/Oncological Hx Blood Disorders: Yes Hx Cancer: Yes (lung mass) - Integumentary Hx Dermatological Disorder: Yes (Reddened, flush skin, dry and taut. Thickened, whitish-yellowish skin patch) Hx Psoriasis: Yes Other/Comment: Generalized body surface area, including extremities and torso with reddened, flushed skin with dry, whitish-yellow, thick, scaly, flaky patches. - Musculoskeletal/Rheumatological Hx Falls: Yes (past) - Gastrointestinal Hx Gastrointestinal Disorders: Yes (reflux) - Genitourinary/Gynecological Hx Genitourinary Disorders: Yes Other/Comment: urinary urgency/frequency - Psychiatric Hx Psychophysiologic Disorder: Yes Hx Substance Use: No (NONE NOTED) - Surgical History Hx Appendectomy: Yes - Anesthesia Hx Anesthesia Reactions: No Hx Malignant Hyperthermia: No - Suicidal Assessment Feels Threatened In Home Enviroment: No Family/Social History - Physician Review Nursing Documentation Reviewed: Yes Family/Social History: No Known Family HX Smoking Status: Former Smoker Hx Alcohol Use: Yes Hx Substance Use: No (NONE NOTED) Hx Substance Use Treatment: No Allergies/Home Meds Allergies/Adverse Reactions: Allergies No Known Allergies Allergy (Verified 08/25/17 20:15) Home Medications: Home Meds Medication Instructions Recorded Confirmed ALPRAZolam [Xanax] 0.25 mg PO BID 10/01/17 10/01/17 Bosentan [Tracleer] 125 mg PO BID 10/01/17 10/01/17 Cyanocobalamin [Vitamin B12] 500 mcg PO DAILY 10/01/17 10/01/17 Diltiazem HCl [Diltiazem ER] 300 mg PO DAILY 10/01/17 10/01/17 Esomeprazole Magnesium [Nexium] 40 mg PO DAILY 10/01/17 10/01/17 Furosemide [Lasix] 40 mg PO BID 10/01/17 10/01/17 Sitagliptin Phos/Metformin HCl 1 each PO BID 10/01/17 10/01/17 [Janumet 50-500 mg Tablet] predniSONE [Prednisone] 10 mg PO DAILY 10/01/17 10/01/17 traMADol [Ultram] 50 mg PO Q8H PRN 10/01/17 10/01/17 Review of Systems - Physician Review All systems were reviewed & negative as marked: Yes - Review of Systems Constitutional: absent: Fevers ENT: absent: Rhinorrhea Respiratory: Cough, Sputum, Other (difficulty breathing) Cardiovascular: absent: Chest Pain Musculoskeletal: Other (chronic right sided pain) Physical Exam Vital Signs Reviewed: Yes Vital Signs Temp Pulse Resp BP Pulse Ox 10/01/17 06:55 20 100 10/01/17 06:54 97.4 F L 88 24 136/79 100 Temperature: Hypothermic Blood Pressure: Normal Pulse: Regular Respiratory Rate: Normal Appearance: Positive for: Well-Appearing, Non-Toxic, Comfortable Pain Distress: None Mental Status: Positive for: Alert and Oriented X 3 - Systems Exam Head: Present: Atraumatic, Normocephalic Pupils: Present: PERRL Extroacular Muscles: Present: EOMI Conjunctiva: Present: Normal Mouth: Present: Moist Mucous Membranes Neck: Present: Normal Range of Motion Respiratory/Chest: Present: Wheezes (right side expiratory wheezing ), Rhonchi ( right side ), Tender to Palpation (tenderness to left side posterior ribs; no crepitus, no step off ) Cardiovascular: Present: Regular Rate and Rhythm, Normal S1, S2. No: Murmurs Abdomen: Present: Normal Bowel Sounds. No: Tenderness, Distention, Peritoneal Signs Upper Extremity: Present: Normal Inspection. No: Cyanosis, Edema Lower Extremity: Present: Normal Inspection. No: Edema Neurological: Present: GCS=15, CN II-XII Intact, Speech Normal Skin: Present: Dry, Other (flaky) Psychiatric: Present: Alert, Oriented x 3, Normal Insight, Normal Concentration Medical Decision Making ED Course and Treatment: 10/01/17 07:23 Impression: A 72 year old male with difficulty breathing status post fall. Differential Diagnosis included but are not limited to: COPD on exacerbation vs. Pneumonia vs. Mechanical fall rule out rib fracture Plan: -- VBG -- Chest X-ray -- Chest CT -- EKG -- Duoneb, Solu-medrol -- Rapid Flu test -- O2 via Nasal cannula -- Labs -- BiPAP -- Dr. Edmond came to evaluate patient on patient's arrival. He recommended placing patient on telemetry. He entered orders. -- Reassess and disposition Progress Notes: EKG: Ordered, reviewed, and independently interpreted the EKG. Rate : 77 BPM Rhythm : NSR Interpretation : No ST-segment elevations or depressions, no T-wave inversions, normal intervals. 10/01/17 09:46 Patient's CXR shows right pleural effusion and right upper disease that is unchanged from previous CXR. WBC 21. No fever. Patient's WBC is consistently elevated. Rib xray was unable to be performed because patient would not lay flat because of respiratory distress and can't stand up as per windshield technician. I discussed case at this time for hand off with Dr. Karla Fairchild. She agrees to place patient in telemetry. 10/01/17 09:53 I discussed case with Dr. Edmond again who agrees to start Rocephin 1gm q24hr and a CBC in the AM. First does of Rocephin given now. - Critical Care Critical Care Minutes: 30 minutes - Lab Interpretations Lab Results: 10/01/17 07:28 10/01/17 07:28 Lab Results 10/01/17 07:30: Influenza Typ A,B (EIA) Negative for flu a/b 10/01/17 07:28: Sodium 141, Chloride 96 L, Potassium 4.2, Carbon Dioxide 37 H, Anion Gap 8 L, BUN 19, Creatinine 0.8, Est GFR ( Amer) > 60, Est GFR (Non -Af Amer) > 60, Random Glucose 133 H, Calcium 10.4, Lactate Dehydrogenase 412, Total Creatine Kinase < 20 L, Troponin I < 0.01, NT-Pro-B Natriuret Pep 569 H 10/01/17 07:28: pO2 86 H, VBG pH 7.36, VBG pCO2 75.0 H*, VBG HCO3 42.4 H, VBG Total CO2 44.7 H, VBG O2 Sat (Calc) 97.9 H, VBG Base Excess 13.4 H, VBG Potassium 4.6, Sodium 139.0, Chloride 99.0, Glucose 132 H, Lactate 1.3, FiO2 21.0, Venous Blood Potassium 4.6 10/01/17 07:28: PT 11.8, INR 1.07, APTT 27.0 10/01/17 07:28: WBC 21.3 H D, RBC 4.58, Hgb 11.5 L, Hct 40.1 L, MCV 87.6, MCH 25.1, MCHC 28.7 L, RDW 16.2 H, Plt Count 264, MPV 10.2, Gran % 87.0 H, Lymph % ( Auto) 6.1 L, [place] % (Auto) 6.0, Eos % (Auto) 0.8 L, Baso % (Auto) 0.1, Gran # 18.54 H, Lymph # 1.3, [place] # 1.3 H, Eos # 0.2, Baso # 0.03 - RAD Interpretation Radiology Orders: 10/01/17 07:28 CHEST PORTABLE [RAD] Stat - Medication Orders Current Medication Orders: Albuterol/Ipratropium (Duoneb 3 Mg/0.5 Mg (3 Ml) Ud) 3 ml IH [id number] [place] Albuterol/Ipratropium (Duoneb 3 Mg/0.5 Mg (3 Ml) Ud) 3 ml IH Q2H PRN PRN Reason: Shortness of Breath Budesonide (Pulmicort Respules) 0.5 mg IH [id number] [place] Methylprednisolone (Solu-Medrol) 40 mg IVP Q12 [place] Discontinued Medications Albuterol/Ipratropium (Duoneb 3 Mg/0.5 Mg (3 Ml) Ud) 3 ml IH Q15M [place] Stop: 10/01/17 08:01 Last Admin: 10/01/17 08:34 Dose: 3 ml Ketorolac Tromethamine (Toradol) 30 mg IVP STAT STA Stop: 10/01/17 08:58 Last Admin: 10/01/17 09:03 Dose: 30 mg MAR Pain Assessment Document 10/01/17 09:03 [facility] (Rec: 10/01/17 09:03 [facility] [id number]) Pain Reassessment Is this a pain reassessment? Yes Sleep Is patient sleeping during reassessment? No Presence of Pain Presence of Pain Yes Pain Scale Used Pain Scale Used Numeric Location Pain Location Body Site Back Description Description Constant Intensity of Pain at present 10 IVP Administration Document 10/01/17 09:03 [facility] (Rec: 10/01/17 09:03 [facility] [id number]) Charges for Administration # of IVP Administrations 1 Methylprednisolone (Solu-Medrol) 125 mg IVP STAT STA Stop: 10/01/17 07:29 Last Admin: 10/01/17 07:56 Dose: 125 mg IVP Administration Document 10/01/17 07:56 [facility] (Rec: 10/01/17 08:00 [facility] [id number]) Charges for Administration # of IVP Administrations 1 - Scribe Statement The provider has reviewed the documentation as recorded by the Scribe Haley Osborne Provider Scribe Attestation: All medical record entries made by the Scribe were at my direction and personally dictated by me. I have reviewed the chart and agree that the record accurately reflects my personal performance of the history, physical exam, medical decision making, and the department course for this patient. I have also personally directed, reviewed, and agree with the discharge instructions and disposition. Disposition/Present on Arrival - Present on Arrival Any Indicators Present on Arrival: Yes History of DVT/PE: Yes History of Uncontrolled Diabetes: Yes Urinary Catheter: Yes History of Decub. Ulcer: No History Surgical Site Infection Following: None - Disposition Have Diagnosis and Disposition been Completed?: Yes Diagnosis: COPD exacerbation Disposition: HOSPITALIZED Disposition Time: 09:34 Patient Plan: Admission, Observation, Telemetry Patient Problems: Current Active Problems Problem Status Onset COPD exacerbation Acute Condition: FAIR
[2017-10-01] MEDS: Albuterol-Ipratrop 3 mg / 0.5 (3 ml) UD IH SCH ×5 (07:56→19:43)
[2017-10-01] MEDS ORDERED: Albuterol-Ipratrop 3 mg / 0.5 (3 ml) UD IH PRN (08:05)
[2017-10-01 08:16] LABS: VENOUS BLOOD GAS BASE EXCESS 13.4 mmol/L (0.0-2.0); VENOUS BLOOD PH 7.36 (7.32-7.43)
[2017-10-01 08:23] LABS: BASO # 0.03 K/mm3 (0.0-2.0); BASO % 0.1 % (0.0-3.0); EOS # 0.2 (0.0-0.7); EOS % 0.8 % (1.5-5.0); GRAN # 18.54 (1.4-6.5); HEMATOCRIT 40.1 % (42.0-52.0); LYMPH # 1.3 (1.2-3.4); LYMPH % 6.1 % (22.0-35.0); MEAN CELL VOLUME 87.6 fl (80.0-105.0); MEAN CORPUSCULAR HEMOGLOBIN 25.1 pg (25.0-35.0); MEAN CORPUSCULAR HGB CONC 28.7 g/dl (31.0-37.0); MEAN PLATELET VOLUME 10.2 fl (7.0-11.0); MONO # 1.3 (0.1-0.6); RED CELL DISTRIBUTION WIDTH 16.2 % (11.5-14.5); WHITE BLOOD COUNT 21.3 10^3/ul (4.5-11.0)
[2017-10-01 08:24] LABS: BLOOD UREA NITROGEN 19 mg/dL (7-21); CALCIUM 10.4 mg/dL (8.4-10.5); CARBON DIOXIDE 37 mmol/L (21-33); CHLORIDE 96 mmol/L (98-107); GFR AFRICAN-AMERICAN > 60; GLUCOSE,RANDOM 133 mg/dL (70-110); POTASSIUM 4.2 mmol/L (3.6-5.0); SODIUM 141 mmol/L (132-148)
[2017-10-01 08:27] LABS: TROPONIN I < 0.01 ng/mL
[2017-10-01 08:30] LABS: ARTERIAL BLOOD GAS O2 CAPACITY 15.3 mL/dl (16-24); ARTERIAL BLOOD GAS O2 CONTENT 13.5 ML/dl (15-23); ARTERIAL BLOOD GAS PH 7.37 (7.35-7.45); CARBOXYHEMOGLOBIN 2.5 % (0.5-1.5); HHB 11.5 % (0-5); METHEMOGLOBIN 1.1 % (0.0-3.0)
[2017-10-01 08:30] LABS: INR 1.07 (0.93-1.08)
--- NOTE | 2017-10-01 09:20 | CARD ---
APPROVED REPORT EKG Measurement Heart [id number] <Conclusion> Normal sinus rhythm with sinus arrhythmia Nonspecific ST and T wave abnormality Wandering baseline Probably no change
[2017-10-01] MEDS ORDERED: cefTRIAXone 1 gm 1 GM/100 ML BAG IVPB STA (09:52)
--- NOTE | 2017-10-01 09:53 | CON ---
DATE: 10/01/2017 PULMONARY CONSULTATION REASON FOR CONSULTATION: Chronic obstructive pulmonary disease. REFERRING PHYSICIAN: Andriy Reyes MD History is obtained via extensive discussion with the niece. I have also discussed the case with the patient at length and reviewed the chart at length. HISTORY OF PRESENT ILLNESS: The patient is a 72-year-old chronically ill male, with past medical history significant for end-stage chronic obstructive pulmonary disease, on home oxygen, multiple episodes of respiratory failure, multiple pneumonias in the past, cardiac arrhythmias, left upper lobe lung mass (the patient and family refused workup in the past), pulmonary hypertension, coronary artery disease, who presents to [facility] with increasing shortness of breath at rest and dyspnea on exertion, starting this morning. The patient does have a frequent history of falls at home, and did fall last night. The patient does have a chronic cough with minimal sputum production-unchanged. There is no history of chest pain, coughing up of blood, or chest pain - made worse with deep respirations. There is no history of temperatures, chills or infectious exposure. There is no history of night sweats. The patient has lost weight with decreased appetite over the past few months. No history of calf pains. No history of syncope or diaphoresis. No history of recent travel. REVIEW OF SYSTEMS: No history of nausea, vomiting or diarrhea. No acute urinary symptoms. No new neurologic complaints. The patient does have chronic musculoskeletal pain - in the left chest/shoulder area. Rest of the review of systems is noncontributory. ALLERGIES: NO KNOWN ALLERGIES. SOCIAL HISTORY: Positive for extensive tobacco usage. No alcohol. FAMILY HISTORY: No inheritable diseases. MEDICATIONS: Home medications include Lasix, Ultram diltiazem, prednisone, Nexium, Xanax, Tracleer and DuoNebs. PHYSICAL EXAMINATION: GENERAL: The patient is mildly short of breath at rest, but in no acute distress. He is awake and alert, and conversive. VITAL SIGNS: Temperature is 97.4, pulse is 88, respirations are 20/22, and blood pressure is 136/79. Oxygen saturation on nasal cannula is 92%. HEENT: Normocephalic and atraumatic. NECK: No JVD. CARDIOVASCULAR: Systolic ejection murmur at the lower left sternal border. No S3 gallop. LUNGS: Decreased breath sounds at the bases. Minimal bilateral rhonchi. No wheezing. EXTREMITIES: Mild edema. No cyanosis and no clubbing. Calves are nontender to palpation. GASTROINTESTINAL: Abdomen is soft, nontender and nondistended. Bowel sounds are positive. SKIN: No acute rash. NEUROLOGIC: Exam is limited at the present time. PERTINENT LABORATORY DATA: Chest x-ray was done this morning and reviewed. There are chronic changes noted in the right lower lobe. There is also a left upper lobe lung mass - also seen on previous films. The film today is not significantly changed from the previous films. All other admitting labs are pending. IMPRESSION 1. Recurrent bronchitis. 2. Frequent falls at home. 3. End-stage chronic obstructive pulmonary disease. 4. Left upper lobe lung mass - the patient/family refused workup in the past. 5. Pulmonary hypertension. 6. Coronary artery disease. PLAN: The patient presents to [facility] with main complaints of increasing shortness of breath at rest and dyspnea on exertion - starting this morning. As above, he also fell last night. He does complain of some left rib pain. Other than the above, the patient offers no new pulmonary symptoms. I did review the chest x-ray as above. The chest x-ray is not significantly changed from the previous film. On physical exam, the patient is in [id number] bronchospasm. I will start the patient on nebulizer treatments and low-dose intravenous steroids. As above, all admitting labs are pending. The patient will be admitted for close observation. Again, I did discuss the case with the niece (power of supervisor green end department) at length. I know the patient and niece well for many years. Over the past 6 months, the patient's overall clinical status continues to decline. The niece and I did talk about transitioning the patient to hospice care. Overall status/prognosis for this patient remains very poor. I will discuss the above with the attending physician. Thank you very much for this pulmonary consultation. Fabricio Edmond MD MTDTad
[2017-10-01] MEDS: MethylPREDNISolone 40 mg Vial IVP SCH ×2 (10:11→21:13)
--- NOTE | 2017-10-01 10:59 | CP.PCM.HP ---
<Mirza Terrazas - Last Filed: 10/01/17 15:44> History of Present Illness - History of Present Illness History of Present Illness: Patient is a 72 yo male with PMH of COPD( on 4 Liters during the day and BIPAP at night), legally blind, pulmonary HTN, diastolic CHF with preserved EF, DM, HTN, developmental delay, GERD, left lung mass, psoriasis who comes in status post fall and shortness of breath. The patient reports feeling short of breath for the past couple of days. The patient reports trying to put on his life alert from the night stand next to his bed last when he fell on the floor. The patient only reports some left sided posterior rib pain at this time. The patient also reports a productive cough(white phlegm) for the past couple of days as well. The patient denies any alleviating or modifying factors. The patient denies any chest pain, lightheadedness, dizziness, changes in vision, abdominal pain, vomiting, fevers, chills, or any other complaints. PMH: COPD, legally blind, pulmonary HTN, diastolic CHF with preserved EF, DM, HTN, developmental delay, GERD, left lung mass, psoriasis Surg: Hernia Repair FHx: DM1 (sister) All: NKDA SH: Prior 3 ppd smoker, quit 25 yrs ago; Denied EtOH and illicit drug use Medications: please see MAR Present on Admission - Present on Admission Any Indicators Present on Admission: No Review of Systems - Constitutional Constitutional: As Per HPI - EENT Eyes: As Per HPI Ears: As Per HPI Nose/Mouth/Throat: As Per HPI - Cardiovascular Cardiovascular: As Per HPI - Respiratory Respiratory: As Per HPI - Gastrointestinal Gastrointestinal: As Per HPI - Genitourinary Genitourinary: As Per HPI - Musculoskeletal Musculoskeletal: As Per HPI - Integumentary Integumentary: As Per HPI - Neurological Neurological: As Per HPI - Psychiatric Psychiatric: As Per HPI - Endocrine Endocrine: As Per HPI - Hematologic/Lymphatic Hematologic: As Per HPI Past Patient History - Infectious Disease Hx of Infectious Diseases: None - Tetanus Immunizations Tetanus Immunization: Up to Date - Past Social History Smoking Status: Former Smoker - CARDIAC Hx Cardiac Disorders: Yes Hx Congestive Heart Failure: Yes Hx Hypertension: Yes - PULMONARY Hx Chronic Obstructive Pulmonary Disease (COPD): Yes (end stage) - NEUROLOGICAL Hx Neurological Disorder: Yes (Blind since the age of 1.) - HEENT Hx Blind: Yes (since age 1) - RENAL Hx Renal Failure: Yes (renal failure) - ENDOCRINE/METABOLIC Hx Diabetes Mellitus Type 2: Yes - HEMATOLOGICAL/ONCOLOGICAL Hx Blood Disorders: Yes Hx Cancer: Yes (lung mass) - INTEGUMENTARY Hx Dermatological Problems: Yes (Reddened, flush skin, dry and taut. Thickened, whitish-yellowish skin patch) Hx Psoriasis: Yes Other/Comment: Generalized body surface area, including extremities and torso with reddened, flushed skin with dry, whitish-yellow, thick, scaly, flaky patches. - MUSCULOSKELETAL/RHEUMATOLOGICAL Hx Falls: Yes (past) - GASTROINTESTINAL Hx Gastrointestinal Disorders: Yes (reflux) - GENITOURINARY/GYNECOLOGICAL Hx Genitourinary Disorders: Yes Other/Comment: urinary urgency/frequency - PSYCHIATRIC Hx Psychophysiologic Disorder: Yes Hx Substance Use: No (NONE NOTED) - SURGICAL HISTORY Hx Appendectomy: Yes - ANESTHESIA Hx Anesthesia Reactions: No Hx Malignant Hyperthermia: No Meds Allergies/Adverse Reactions: Allergies Allergy/AdvReac Type Severity Reaction Status Date / Time No Known Allergies Allergy Verified 08/25/17 20:15 Physical Exam - Head Exam Head Exam: ATRAUMATIC, NORMAL INSPECTION, NORMOCEPHALIC - Eye Exam Eye Exam: EOMI, Normal appearance, PERRL. absent: Periorbital tenderness Pupil Exam: NORMAL ACCOMODATION, PERRL. absent: Irregular, Unequal - ENT Exam ENT Exam: Mucous Membranes Moist, Normal Exam, Normal Oropharynx - Neck Exam Neck exam: Positive for: Normal Inspection. Negative for: Lymphadenopathy, Thyromegaly - Respiratory Exam Respiratory Exam: Decreased Breath Sounds, Rhonchi - Cardiovascular Exam Cardiovascular Exam: REGULAR RHYTHM, +S1, +S2 - GI/Abdominal Exam GI & Abdominal Exam: Normal Bowel Sounds, Soft. absent: Guarding, Mass - Extremities Exam Extremities exam: Positive for: pedal pulses present. Negative for: pedal edema , tenderness - Back Exam Back exam: NORMAL INSPECTION. absent: CVA tenderness (L), CVA tenderness (R), paraspinal tenderness - Neurological Exam Neurological exam: Alert, CN II-XII Intact, Oriented x3 - Psychiatric Exam Psychiatric exam: Normal Affect, Normal Mood - Skin Skin Exam: Dry, Intact Results - Vital Signs Recent Vital Signs: Last Vital Signs Temp 97.4 F L 10/01/17 06:54 Pulse 111 H 10/01/17 09:00 Resp 24 10/01/17 09:00 BP 99/78 L 10/01/17 09:00 Pulse Ox 95 10/01/17 09:00 - Labs Result Diagrams: 10/01/17 07:28 10/01/17 07:28 Labs: Laboratory Results - last 24 hr 10/01/17 08:20 pCO2 71 H* pO2 50.0 L HCO3 41.0 H* ABG pH 7.37 ABG Total CO2 43.2 H ABG O2 Saturation 88.1 L ABG O2 Content 13.5 L ABG Base Excess 13.0 H ABG Hemoglobin 11.3 L ABG Carboxyhemoglobin 2.5 H POC ABG HHb (Measured) 11.5 H ABG Methemoglobin 1.1 ABG O2 Capacity 15.3 L Hgb O2 Saturation 85.0 L FiO2 35.0 Assessment & Plan - Assessment and Plan (Free Text) Assessment: This is a 72 year old male with a past medical history of COPD, chf, hypertension, diabetes, blindness, gerd, CAD, left lung mass, psoriasis, and atrial fibrillation who comes in for copd exacerbation . Plan: 1.COPD exacerbation -Duonebs prn. Scheduled Steroids -Rocephin and Azithromycin started. -Continue BIPAP currently. Will switch to nasal cannula 4 Liters upon reassessment of ABG. 2. Rib pain - rib series ordered. Patient currently in pain and unable to sit still for series -Will do rib series tomorrow. 3.h/o Atrial fibrillation -continue home meds 4. DM -ISS -Accuchecks ACHS 5. Pulmonary hypertension -Continue home meds 6.h/o Diastolic CHF -continue with Lasix 7. Constipation -continue with home meds GI ppx -Protonix DVT ppx -SCD's <Jamie Fairchild B - Last Filed: 10/03/17 18:20> Results - Vital Signs Recent Vital Signs: Last Vital Signs Temp 98.1 F 10/03/17 12:00 Pulse 47 L 10/03/17 12:00 Resp 18 10/03/17 12:00 BP 135/65 10/03/17 12:00 Pulse Ox 95 10/03/17 06:00 - Labs Result Diagrams: 10/03/17 07:00 10/03/17 07:00 Labs: Laboratory Results - last 24 hr 10/03/17 10/03/17 07:00 07:00 WBC 22.1 H RBC 4.15 Hgb 10.2 L Hct 34.6 L MCV 83.4 MCH 24.6 L MCHC 29.5 L RDW 16.1 H Plt Count 294 MPV 10.9 Gran % 93.0 H Lymph % (Auto) 4.2 L [place] % (Auto) 2.8 Eos % (Auto) 0.0 L Baso % (Auto) 0.0 Gran # 20.52 H Lymph # 0.9 L [place] # 0.6 Eos # 0.0 Baso # 0.01 Neutrophils % (Manual) 95 H Lymphocytes % (Manual) 4 L Monocytes % (Manual) 1 Toxic Granulation 1+ Platelet Evaluation Normal Hypochromasia 1+ Anisocytosis (manual) Slight Sodium 133 Potassium 4.8 Chloride 90 L Carbon Dioxide 36 H Anion Gap 12 BUN 34 H Creatinine 1.0 Est GFR ( Amer) > 60 Est GFR (Non-Af Amer) > 60 Random Glucose 186 H Calcium 9.9 Total Bilirubin 0.4 AST 22 ALT 20 Alkaline Phosphatase 125 Total Protein 7.3 Albumin 3.5 Globulin 3.8 Albumin/Globulin Ratio 0.9 L Attending/Attestation - Attestation I have personally seen and examined this patient.: Yes I have fully participated in the care of the patient.: Yes I have reviewed all pertinent clinical information: Yes Notes (Text): I have seen and examined patient with resident. This is a 71 year old male with past medical history of legal blindness, severe COPD (on 4L of O2 at home), pulmonary hypertension, obstructive sleep apnea, psoriasis, HTN, NIDDM and CAD ( s/p stents) and being legally blind who was brought by patients niece for evaluation of dyspnea, productive cough, generalized weakness and had a mechanical fall. He will be admitted for COPD exacerbation. Will start duonebs , solumedrol and doxy. Continue cardizem, bosentan and lasix. Patient is DNI DNR. Long-term prognosis is poor. As he had a mechanical fall and developed pain on the left side, will order rib series. Follow up with within 3-[address] Hale within 2-[address] Jamie Fairchild
--- NOTE | 2017-10-01 11:12 | RAD ---
HISTORY: SOB. COMPARISON: Comparison chest 09/08/2017. FINDINGS: LUNGS: Patchy infiltrates seen in the right upper and right lower lobes. Mild left basilar atelectasis and/or developing infiltrate. . There may also be right-sided effusion PLEURA: As above. No pneumothorax apparent. CARDIOVASCULAR: Heart remains enlarged. OSSEOUS STRUCTURES: No significant abnormalities. VISUALIZED UPPER ABDOMEN: Normal. OTHER FINDINGS: None. IMPRESSION: Patchy infiltrate changes seen throughout the right upper and right lower lobe with mild left basilar atelectasis and/or developing infiltrate. Questionable right effusion.
[2017-10-01 12:56] VITALS: BMI 27.0
[2017-10-01] MEDS ORDERED: BOSENTAN 125 MG PO SCH ×3 (18:00→19:31)
[2017-10-01] MEDS: Insulin Reg-MEDIUM-Coverage SC SCH ×2 (18:07→21:12)
[2017-10-01] MEDS: Budesonide 0.5 mg/2 ml Inhal Susp UD IH SCH (19:43)
[2017-10-01] MEDS: BOSENTAN 125 MG PO SCH (20:07)
[2017-10-02] MEDS: Albuterol-Ipratrop 3 mg / 0.5 (3 ml) UD IH SCH ×4 (01:06→19:59)
[2017-10-02 07:14] LABS: BASO # 0.01 K/mm3 (0.0-2.0); GRAN # 18.21 (1.4-6.5); GRAN % 88.5 % (50.0-68.0); HEMATOCRIT 35.7 % (42.0-52.0); LYMPH # 1.2 (1.2-3.4); LYMPH % 5.9 % (22.0-35.0); MEAN CORPUSCULAR HGB CONC 29.4 g/dl (31.0-37.0); MEAN PLATELET VOLUME 10.5 fl (7.0-11.0); MONO # 1.2 (0.1-0.6); MONO % 5.6 % (1.0-6.0); RED CELL DISTRIBUTION WIDTH 16.1 % (11.5-14.5); WHITE BLOOD COUNT 20.6 10^3/ul (4.5-11.0)
[2017-10-02 07:36] LABS: ALB/GLOB RATIO 0.9 (1.1-1.8); ALKALINE PHOSPHATASE 125 U/L (38-126); ALT/SGPT 29 U/L (7-56); AST/SGOT 23 U/L (17-59); BILIRUBIN,TOTAL 0.4 mg/dL (0.2-1.3); BLOOD UREA NITROGEN 31 mg/dL (7-21); CALCIUM 10.1 mg/dL (8.4-10.5); CARBON DIOXIDE 36 mmol/L (21-33); CHLORIDE 92 mmol/L (98-107); GFR AFRICAN-AMERICAN > 60; GLUCOSE,RANDOM 122 mg/dL (70-110); POTASSIUM 4.5 mmol/L (3.6-5.0); SODIUM 137 mmol/L (132-148); TOTAL PROTEIN 7.3 g/dL (5.8-8.3)
[2017-10-02] MEDS: Budesonide 0.5 mg/2 ml Inhal Susp UD IH SCH ×2 (07:38→19:59)
[2017-10-02] MEDS: Insulin Reg-MEDIUM-Coverage SC SCH ×4 (07:55→23:09)
[2017-10-02] MEDS: MethylPREDNISolone 40 mg Vial IVP SCH ×2 (09:07→21:29)
[2017-10-02] MEDS: diltiaZEM 300 mg/24 Hours CD Cap PO SCH (09:31)
[2017-10-02] MEDS ORDERED: diltiaZEM 300 mg/24 Hours CD Cap PO SCH (10:00)
[2017-10-02] MEDS: BOSENTAN 125 MG PO SCH ×2 (10:30→17:15)
--- NOTE | 2017-10-02 11:28 | RAD ---
PROCEDURE: Left ribs HISTORY: left rib pain r/o fracture COMPARISON: TECHNIQUE: Three views FINDINGS: Minimally displaced fractures are seen of the lateral aspect of the 8th 9th 10th and 11th ribs. There is no pneumothorax. IMPRESSION: Nondisplaced fractures in the left lower rib cage
--- NOTE | 2017-10-02 11:33 | CP.PCM.PN ---
<Mirza Terrazas - Last Filed: 10/02/17 18:34> Subjective - Date & Time of Evaluation Date of Evaluation: 10/02/17 Time of Evaluation: 08:30 - Subjective Subjective: Patient seen and examined at bedside. Per nursing no acute events occurred overnight. The patient still reports posterior left rib pain. The patient also reports breathing a little better today. The patient is tolerating food and passing bowels with no complaints. The patient denies any chest pain, lightheadedness, dizziness, changes in vision, fevers, chills, abdominal pain, or any other complaints. Objective - Vital Signs/Intake and Output Vital Signs (last 24 hours): Temp Pulse Resp BP Pulse Ox 98.3 F 82 20 128/68 99 10/02/17 06:00 10/02/17 09:31 10/02/17 06:00 10/02/17 09:31 10/02/17 06:00 Intake and Output: 10/02/17 10/02/17 06:59 18:59 Intake Total 240 Output Total 375 Balance -135 - Medications Medications: Current Medications Albuterol/Ipratropium (Duoneb 3 Mg/0.5 Mg (3 Ml) Ud) 3 ml IH [id number] [facility] Last Admin: 10/02/17 07:38 Dose: 3 ml Albuterol/Ipratropium (Duoneb 3 Mg/0.5 Mg (3 Ml) Ud) 3 ml IH Q2H PRN PRN Reason: Shortness of Breath Azithromycin (Zithromax) 500 mg PO DAILY [facility] PRN Reason: Protocol Last Admin: 10/02/17 09:06 Dose: 500 mg Benzonatate (Tessalon Perles) 100 mg PO TID [facility] Last Admin: 10/02/17 09:33 Dose: Not Given Budesonide (Pulmicort Respules) 0.5 mg IH [id number] [facility] Last Admin: 10/02/17 07:38 Dose: 0.5 mg Cyanocobalamin (Vitamin B12 1000 Mcg Tab) 500 mcg PO DAILY [facility] Last Admin: 10/02/17 09:05 Dose: 500 mcg Diltiazem HCl (Cardizem Cd) 300 mg PO DAILY [facility] Last Admin: 10/02/17 09:31 Dose: 300 mg Furosemide (Lasix) 40 mg PO BID [facility] Last Admin: 10/01/17 18:04 Dose: 40 mg Heparin Sodium (Porcine) (Heparin) 5,000 units SC Q12 [facility] PRN Reason: Protocol Last Admin: 10/02/17 09:06 Dose: 5,000 units Home Med (Home Med) 1 unit PO BID [facility] Last Admin: 10/01/17 20:07 Dose: 1 unit Insulin Human Regular (Humulin R Med) 0 units SC ACHS [place] PRN Reason: Protocol Last Admin: 10/02/17 07:55 Dose: Not Given Methylprednisolone (Solu-Medrol) 40 mg IVP Q12 [facility] Last Admin: 10/02/17 09:07 Dose: 40 mg Tramadol HCl (Ultram) 50 mg PO Q8H PRN PRN Reason: Pain, moderate (4-7) Last Admin: 10/02/17 09:05 Dose: 50 mg - Labs Labs: 10/02/17 06:50 10/02/17 06:50 PT 11.8 SECONDS (9.4-12.5) 10/01/17 07:28 INR 1.07 (0.93-1.08) 10/01/17 07:28 APTT 27.0 Seconds (25.1-36.5) 10/01/17 07:28 - Head Exam Head Exam: ATRAUMATIC, NORMAL INSPECTION, NORMOCEPHALIC - Eye Exam Eye Exam: EOMI, Normal appearance, PERRL. absent: Periorbital tenderness Pupil Exam: NORMAL ACCOMODATION, PERRL. absent: Irregular, Unequal - ENT Exam ENT Exam: Mucous Membranes Moist, Normal Exam, Normal Oropharynx - Neck Exam Neck Exam: Normal Inspection. absent: Lymphadenopathy, Thyromegaly - Respiratory Exam Respiratory Exam: Clear to Ausculation Bilateral, NORMAL BREATHING PATTERN. absent: Chest Wall Tenderness, Prolonged Expiratory Phase, Respiratory Distress - Cardiovascular Exam Cardiovascular Exam: REGULAR RHYTHM, RRR, +S1, +S2. absent: Gallop, Rubs - GI/Abdominal Exam GI & Abdominal Exam: Soft, Normal Bowel Sounds - Extremities Exam Extremities Exam: absent: Pedal Edema Additional comments: Psoriasis on the anterior shins bilaterally. - Back Exam Back Exam: NORMAL INSPECTION. absent: CVA tenderness (L), CVA tenderness (R), paraspinal tenderness - Neurological Exam Neurological Exam: Alert, Awake, Oriented x3 - Psychiatric Exam Psychiatric exam: Normal Affect, Normal Mood - Skin Skin Exam: Dry, Intact, Normal Color Assessment and Plan - Assessment and Plan (Free Text) Assessment: This is a 72 year old male with a past medical history of COPD, chf, hypertension, diabetes, blindness, gerd, CAD, left lung mass, psoriasis, and atrial fibrillation who comes in for copd exacerbation . Plan: 1.COPD exacerbation -Continue Duonebs prn. Scheduled Steroids -Rocephin and Azithromycin started. -Continue 4 Liters Nasal Cannula. Patient oxygen saturation is 99%. Will continue to monitor closely. -Palliative consult ordered. Will f/u with rec's. 2. Rib pain - Scheduled for rib series today. Will follow up with results. 3.h/o Atrial fibrillation -continue home meds 4. DM -ISS -Accuchecks ACHS 5. Pulmonary hypertension -Continue home meds 6.h/o Diastolic CHF -continue with Lasix 7. Constipation -continue with home meds GI ppx -Protonix DVT ppx -SCD's <Jamie Fairchild - Last Filed: 10/03/17 18:23> Objective - Vital Signs/Intake and Output Vital Signs (last 24 hours): Temp Pulse Resp BP Pulse Ox 98.1 F 47 L 18 120/60 95 10/03/17 12:00 10/03/17 12:00 10/03/17 12:00 10/03/17 18:06 10/03/17 06:00 Intake and Output: 10/03/17 10/03/17 06:59 18:59 Intake Total 900 Output Total 500 975 Balance -500 -75 - Medications Medications: Current Medications Acetaminophen (Tylenol 325mg Tab) 650 mg PO Q6H PRN PRN Reason: Pain, moderate (4-7) Last Admin: 10/02/17 23:00 Dose: 650 mg Albuterol/Ipratropium (Duoneb 3 Mg/0.5 Mg (3 Ml) Ud) 3 ml IH [id number] [facility] Last Admin: 10/03/17 13:45 Dose: 3 ml Albuterol/Ipratropium (Duoneb 3 Mg/0.5 Mg (3 Ml) Ud) 3 ml IH Q2H PRN PRN Reason: Shortness of Breath Azithromycin (Zithromax) 250 mg PO DAILY [facility] PRN Reason: Protocol Last Admin: 10/03/17 10:08 Dose: 250 mg Benzonatate (Tessalon Perles) 100 mg PO TID [facility] Last Admin: 10/03/17 17:27 Dose: Not Given Budesonide (Pulmicort Respules) 0.5 mg IH [id number] [facility] Last Admin: 10/03/17 08:42 Dose: 0.5 mg Cyanocobalamin (Vitamin B12 1000 Mcg Tab) 500 mcg PO DAILY [facility] Last Admin: 10/03/17 10:07 Dose: 500 mcg Diltiazem HCl (Cardizem Cd) 300 mg PO DAILY [facility] Last Admin: 10/03/17 09:52 Dose: 300 mg Furosemide (Lasix) 40 mg PO BID [facility] Last Admin: 10/03/17 18:06 Dose: 40 mg Heparin Sodium (Porcine) (Heparin) 5,000 units SC Q12 [facility] PRN Reason: Protocol Last Admin: 10/03/17 09:53 Dose: 5,000 units Home Med (Home Med) 1 unit PO BID [facility] Last Admin: 10/03/17 18:05 Dose: 1 unit Ceftriaxone Sodium (Rocephin 1 Gram Ivpb) 1 gm in 100 mls @ 100 mls/hr IVPB DAILY [facility] PRN Reason: Protocol Last Admin: 10/03/17 12:33 Dose: 100 mls/hr Insulin Human Regular (Humulin R Med) 0 units SC ACHS [facility] PRN Reason: Protocol Last Admin: 10/03/17 18:05 Dose: 5 units Methylprednisolone (Solu-Medrol) 40 mg IVP Q12 [facility] Last Admin: 10/03/17 10:06 Dose: 40 mg Tramadol HCl (Ultram) 50 mg PO Q8H PRN PRN Reason: Pain, moderate (4-7) Last Admin: 10/03/17 10:13 Dose: 50 mg - Labs Labs: 10/03/17 07:00 10/03/17 07:00 PT 11.8 SECONDS (9.4-12.5) 10/01/17 07:28 INR 1.07 (0.93-1.08) 10/01/17 07:28 APTT 27.0 Seconds (25.1-36.5) 10/01/17 07:28 Attending/Attestation - Attestation I have personally seen and examined this patient.: Yes I have fully participated in the care of the patient.: Yes I have reviewed all pertinent clinical information, including history, physical exam and plan: Yes Notes (Text): I have seen and examined patient with resident. This is a 71 year old male with past medical history of legal blindness, severe COPD (on 4L of O2 at home), pulmonary hypertension, obstructive sleep apnea, psoriasis, HTN, NIDDM and CAD ( s/p stents) and being legally blind who was brought by patients niece for evaluation of dyspnea, productive cough, generalized weakness and had a mechanical fall. Will continue duonebs, solumedrol and doxy. Continue cardizem , bosentan and lasix. Patient is DNI DNR. Long-term prognosis is poor. As he had a mechanical fall and developed pain on the left side, rib series was ordered however it was not done as patient was in significant amount of pain. Pain meds were offered but he refused to take anything stronger than tramdol or tylenol. I had a detailed discussion with patients niece Racheal and Palliative care nurse. Racheal wants to discuss with Dr Edmond before making any decision. Follow up with within 3-[address] Hale within 2-[address] Jamie Fairchild
--- NOTE | 2017-10-02 13:49 | CP.PCM.CON ---
History of Present Illness - History of Present Illness History of Present Illness: Palliative consult requested by Dr Janelle Perdomo Reason: Goals of care/hospice discussion 72 year old male with history of COPD, O2& BIPAP dependency, pulmonary HTN, CHF who presented with shortness of breath, productive cough, s/p fall resulting in injury and left rib. He denied dizziness, chest pain, vomiting ,fevers or chills. Chest x ray revealed patchy infiltrates throughout right right upper/ lower lobes with mild bibasilar atelectasis. Rib xray showed non displaced fractures ot 8th,9th,10th and 11th ribs. Labs; WBC 21.3, BNP 569. PMHx: end stage COPD, pulmonary HTN,CHF, DM, CKD, anemia, GERD, blindness. Family History: Sister-DM. Social History: Former heavy smoker, no alcohol or drug use. Lives with his niece, Racheal Vitale. Review of Systems: As per HPI, all other systems reviewed and are negative. Advance Care Planning: The patient has designated his niece Racheal Vitale as health care proxy. She and the patient affirm he is DNR/DNI. Past Patient History - Infectious Disease Hx of Infectious Diseases: None - Tetanus Immunizations Tetanus Immunization: Up to Date - Past Social History Smoking Status: Former Smoker - CARDIAC Hx Cardiac Disorders: Yes Hx Congestive Heart Failure: Yes Hx Hypertension: Yes - PULMONARY Hx Chronic Obstructive Pulmonary Disease (COPD): Yes (end stage) - NEUROLOGICAL Hx Neurological Disorder: Yes (Blind since the age of 1.) - HEENT Hx Blind: Yes (since age 1) - RENAL Hx Renal Failure: Yes (renal failure) - ENDOCRINE/METABOLIC Hx Diabetes Mellitus Type 2: Yes - HEMATOLOGICAL/ONCOLOGICAL Hx Blood Disorders: Yes Hx Cancer: Yes (lung mass) - INTEGUMENTARY Hx Dermatological Problems: Yes (Reddened, flush skin, dry and taut. Thickened, whitish-yellowish skin patch) Hx Psoriasis: Yes Other/Comment: Generalized body surface area, including extremities and torso with reddened, flushed skin with dry, whitish-yellow, thick, scaly, flaky patches. - MUSCULOSKELETAL/RHEUMATOLOGICAL Hx Falls: Yes (past) - GASTROINTESTINAL Hx Gastrointestinal Disorders: Yes (reflux) - GENITOURINARY/GYNECOLOGICAL Hx Genitourinary Disorders: Yes Other/Comment: urinary urgency/frequency - PSYCHIATRIC Hx Psychophysiologic Disorder: Yes Hx Substance Use: No (NONE NOTED) - SURGICAL HISTORY Hx Appendectomy: Yes - ANESTHESIA Hx Anesthesia Reactions: No Hx Malignant Hyperthermia: No Meds Allergies/Adverse Reactions: Allergies Allergy/AdvReac Type Severity Reaction Status Date / Time No Known Allergies Allergy Verified 08/25/17 20:15 - Medications Medications: Current Medications Albuterol/Ipratropium (Duoneb 3 Mg/0.5 Mg (3 Ml) Ud) 3 ml IH [id number] [facility] Last Admin: 10/02/17 07:38 Dose: 3 ml Albuterol/Ipratropium (Duoneb 3 Mg/0.5 Mg (3 Ml) Ud) 3 ml IH Q2H PRN PRN Reason: Shortness of Breath Azithromycin (Zithromax) 500 mg PO DAILY [facility] PRN Reason: Protocol Last Admin: 10/02/17 09:06 Dose: 500 mg Benzonatate (Tessalon Perles) 100 mg PO TID [facility] Last Admin: 10/02/17 09:33 Dose: Not Given Budesonide (Pulmicort Respules) 0.5 mg IH [id number] [facility] Last Admin: 10/02/17 07:38 Dose: 0.5 mg Cyanocobalamin (Vitamin B12 1000 Mcg Tab) 500 mcg PO DAILY [facility] Last Admin: 10/02/17 09:05 Dose: 500 mcg Diltiazem HCl (Cardizem Cd) 300 mg PO DAILY [facility] Last Admin: 10/02/17 09:31 Dose: 300 mg Furosemide (Lasix) 40 mg PO BID [facility] Last Admin: 10/01/17 18:04 Dose: 40 mg Heparin Sodium (Porcine) (Heparin) 5,000 units SC Q12 [facility] PRN Reason: Protocol Last Admin: 10/02/17 09:06 Dose: 5,000 units Home Med (Home Med) 1 unit PO BID [facility] Last Admin: 10/02/17 10:30 Dose: 1 unit Insulin Human Regular (Humulin R Med) 0 units SC ACHS [facility] PRN Reason: Protocol Last Admin: 10/02/17 11:29 Dose: Not Given Methylprednisolone (Solu-Medrol) 40 mg IVP Q12 [facility] Last Admin: 10/02/17 09:07 Dose: 40 mg Tramadol HCl (Ultram) 50 mg PO Q8H PRN PRN Reason: Pain, moderate (4-7) Last Admin: 10/02/17 09:05 Dose: 50 mg Physical Exam - Constitutional Appears: Chronically Ill - Head Exam Head Exam: NORMAL INSPECTION - ENT Exam ENT Exam: Mucous Membranes Moist - Neck Exam Neck exam: Positive for: Normal Inspection - Respiratory Exam Respiratory Exam: Decreased Breath Sounds, Rhonchi, Wheezes - Cardiovascular Exam Cardiovascular Exam: REGULAR RHYTHM, +S1, +S2 - GI/Abdominal Exam GI & Abdominal Exam: Normal Bowel Sounds, Soft - Extremities Exam Extremities exam: Positive for: pedal edema Additional comments: decreased capillary refill - Back Exam Back exam: NORMAL INSPECTION - Neurological Exam Neurological exam: Alert, Oriented x3 - Skin Skin Exam: Dry, Pallor - Additional Findings Additional findings: palliative performance scale rating 40% Results - Vital Signs Recent Vital Signs: Last Vital Signs Temp 98.3 F 10/02/17 06:00 Pulse 82 10/02/17 09:31 Resp 20 10/02/17 06:00 BP 128/68 10/02/17 09:31 Pulse Ox 99 10/02/17 06:00 - Labs Result Diagrams: 10/02/17 06:50 10/02/17 06:50 Labs: Laboratory Results - last 24 hr 10/02/17 10/02/17 06:50 06:50 WBC 20.6 H RBC 4.20 Hgb 10.5 L Hct 35.7 L MCV 85.0 MCH 25.0 MCHC 29.4 L RDW 16.1 H Plt Count 293 MPV 10.5 Gran % 88.5 H Lymph % (Auto) 5.9 L Frio % (Auto) 5.6 Eos % (Auto) 0.0 L Baso % (Auto) 0.0 Gran # 18.21 H Lymph # 1.2 Frio # 1.2 H Eos # 0.0 Baso # 0.01 Sodium 137 Potassium 4.5 Chloride 92 L Carbon Dioxide 36 H Anion Gap 13 BUN 31 H Creatinine 1.2 Est GFR ( Amer) > 60 Est GFR (Non-Af Amer) 59 Random Glucose 122 H Calcium 10.1 Total Bilirubin 0.4 AST 23 ALT 29 Alkaline Phosphatase 125 Total Protein 7.3 Albumin 3.4 Globulin 3.9 Albumin/Globulin Ratio 0.9 L Assessment & Plan - Assessment and Plan (Free Text) Assessment: 72 kristen old male with history of end stage COPD, pulmonary hypertension, pneumonia, DM, CKD who is admitted with COPD exacerbation, hypercapnia, fractures of left lower rib cage and pneumonia. The patient is alert.Complains of pain left lower rib cage. He and I have met on previous admissions. He does not like to discuss goals of care. He directs all health care related questions to his niece, Racheal Vitale. I spoke with Racheal via phone. She and I have had numerous conversations about Tremaine's health and prognosis. Racheal admits that Eliud health is deteriorating rapidly. Clarification of Palliative services vs. Hospice services explained in detail. Questions answered. Racheal understands that Tremaine's health is failing and that he should transition to hospice care, but not ready to make decision at this time. Racheal intends to speak with Tremaine as well as Dr. Edmond before deciding whether to proceed with hospice care. Time spent with niece in goals of care decision and advance care planning, 30 minutes
--- NOTE | 2017-10-02 15:30 | PN ---
DATE: 10/02/2017 PULMONARY PROGRESS NOTE SUBJECTIVE: The patient was seen and examined at bedside. He is receiving currently inhalation treatment with DuoNeb and budesonide. He is on azithromycin as well as methylprednisolone intravenously. PHYSICAL EXAMINATION: VITAL SIGNS: Temperature 98.4, pulse is 88, respirations are 20, and blood pressure is 130/70. HEAD, EAR, NOSE, AND THROAT: Within normal limits. NECK: Supple with no jugular vein distension. CARDIOVASCULAR: S1 and S2. Probable S3. LUNGS: Diminished breath sounds at both bases, with scattered rhonchi and end expiratory wheezes. EXTREMITIES: Mild edema. No cyanosis. GASTROINTESTINAL: Soft and nontender. There is no organomegaly. SKIN: Clear. No acute skin rash. NEUROLOGIC: Awake, alert, and cooperative, moving all extremities. ASSESSMENT: 1. Status post fall at home. 2. End-stage chronic obstructive pulmonary disease. 3. Recurrent bronchitis. 4. Left upper lobe lung mass. The patient and family refused workup in the past for secondary pulmonary hypertension. PLAN: The patient's pulmonary condition has improved since yesterday. He is receiving intravenous antibiotics as well as diuretics and nebulizer treatment with inhaled steroids with this treatment. His condition is slowly improving. The patient will be able to be transferred to transitional care unit soon. We will continue following closely. Luke Coulter MD
[2017-10-03] MEDS: Albuterol-Ipratrop 3 mg / 0.5 (3 ml) UD IH SCH ×4 (02:04→20:39)
[2017-10-03 07:41] LABS: BASO # 0.01 K/mm3 (0.0-2.0); GRAN # 20.52 (1.4-6.5); HEMATOCRIT 34.6 % (42.0-52.0); LYMPH # 0.9 (1.2-3.4); LYMPH % 4.2 % (22.0-35.0); MEAN CELL VOLUME 83.4 fl (80.0-105.0); MEAN CORPUSCULAR HEMOGLOBIN 24.6 pg (25.0-35.0); MEAN CORPUSCULAR HGB CONC 29.5 g/dl (31.0-37.0); MEAN PLATELET VOLUME 10.9 fl (7.0-11.0); MONO # 0.6 (0.1-0.6); MONO % 2.8 % (1.0-6.0); PLATELET COUNT 294 10^3/uL (120.0-450.0); RED CELL DISTRIBUTION WIDTH 16.1 % (11.5-14.5); WHITE BLOOD COUNT 22.1 10^3/ul (4.5-11.0)
[2017-10-03 07:47] LABS: ALB/GLOB RATIO 0.9 (1.1-1.8); ALKALINE PHOSPHATASE 125 U/L (38-126); ALT/SGPT 20 U/L (7-56); AST/SGOT 22 U/L (17-59); BILIRUBIN,TOTAL 0.4 mg/dL (0.2-1.3); BLOOD UREA NITROGEN 34 mg/dL (7-21); CALCIUM 9.9 mg/dL (8.4-10.5); CARBON DIOXIDE 36 mmol/L (21-33); CHLORIDE 90 mmol/L (98-107); GFR AFRICAN-AMERICAN > 60; GLUCOSE,RANDOM 186 mg/dL (70-110); POTASSIUM 4.8 mmol/L (3.6-5.0); SODIUM 133 mmol/L (132-148); TOTAL PROTEIN 7.3 g/dL (5.8-8.3)
[2017-10-03] MEDS: Insulin Reg-MEDIUM-Coverage SC SCH ×4 (08:05→21:31)
[2017-10-03] MEDS: Budesonide 0.5 mg/2 ml Inhal Susp UD IH SCH ×2 (08:42→20:40)
[2017-10-03] MEDS: diltiaZEM 300 mg/24 Hours CD Cap PO SCH (09:52)
[2017-10-03] MEDS: BOSENTAN 125 MG PO SCH ×2 (10:01→18:05)
[2017-10-03] MEDS: MethylPREDNISolone 40 mg Vial IVP SCH ×2 (10:06→21:34)
[2017-10-03 10:13] LABS: ANISOCYTOSIS SLIGHT; NEUTROPHIL 95 % (50.0-70.0); PLATELET ESTIMATE NORMAL (NORMAL); TOXIC GRANULATION 1+
[2017-10-03 10:14] LABS: HYPOCHROMIA 1+
--- NOTE | 2017-10-03 10:21 | PN ---
DATE: 10/03/2017 PULMONARY PROGRESS NOTE SUBJECTIVE: The patient was seen and examined at bedside. He is actually sitting up in chair. He is not in respiratory distress. PHYSICAL EXAMINATION: VITAL SIGNS: As follows, temperature 98, pulse 64, respirations 19, pulse oximetry is 95 on nasal cannula. His intake and output is positive 360. HEAD, EARS, NOSE AND THROAT: Within normal limits. NECK: Supple with no jugular vein distention. CHEST: Symmetrical. CARDIOVASCULAR: S1 and S2. No S3. Irregular. PULMONARY: Diminished breath sounds bilaterally with coarse rhonchi bilaterally and few expiratory wheezes. GI: Soft and nontender. No organomegaly. EXTREMITIES: 1+ pedal edema. SKIN: No new skin rashes. NEUROLOGIC: Limited at the present time. LABORATORY DATA: I have examined his today's blood work. His sodium is 133, potassium 4.8, chloride 90. WBCs are elevated at 22,000, hemoglobin of 10.2, slightly reduced. ASSESSMENT: 1. End-stage chronic obstructive pulmonary disease. 2. Status post fall at home. 3. Recurrent bronchitis. 4. Left upper lobe mass. PLAN: The patient is improving gradually with current treatment with low-dose steroids, antibiotics, aerosol therapy as well as diuretics. Elevated WBCs possibly due to administration of intervenous steroids. I would taper the steroids gradually. Continue the rest of medications and follow on a p.r.n. basis. Luke Coulter MD
--- NOTE | 2017-10-03 11:08 | CP.PCM.PN ---
<Omer Carter - Last Filed: 10/03/17 11:00> Subjective - Date & Time of Evaluation Date of Evaluation: 10/03/17 Time of Evaluation: 11:00 - Subjective Subjective: Pt seen and examined at bedside. Pt with no acute complaints or overnight events. Pt does admit to mild tenderness of ribs. Denies CP, SOB, N/V/D, fever, chills. Objective - Vital Signs/Intake and Output Vital Signs (last 24 hours): Temp Pulse Resp BP Pulse Ox 98.8 F 64 19 130/70 95 10/03/17 06:00 10/03/17 06:00 10/03/17 06:00 10/03/17 10:02 10/03/17 06:00 Intake and Output: 10/03/17 10/03/17 06:59 18:59 Intake Total 360 Output Total 500 200 Balance -500 160 - Medications Medications: Current Medications Acetaminophen (Tylenol 325mg Tab) 650 mg PO Q6H PRN PRN Reason: Pain, moderate (4-7) Last Admin: 10/02/17 23:00 Dose: 650 mg Albuterol/Ipratropium (Duoneb 3 Mg/0.5 Mg (3 Ml) Ud) [id number] [facility] Last Admin: 10/03/17 08:43 Dose: 3 ml Albuterol/Ipratropium (Duoneb 3 Mg/0.5 Mg (3 Ml) Ud) 3 ml IH Q2H PRN PRN Reason: Shortness of Breath Azithromycin (Zithromax) [address] [facility] PRN Reason: Protocol Last Admin: 10/03/17 10:08 Dose: 250 mg Benzonatate (Tessalon Perles) [address] [facility] Last Admin: 10/03/17 10:06 Dose: 100 mg Budesonide (Pulmicort Respules) 0.[id number] [facility] Last Admin: 10/03/17 08:42 Dose: 0.5 mg Cyanocobalamin (Vitamin B12 1000 Mcg Tab) [address] [facility] Last Admin: 10/03/17 10:07 Dose: 500 mcg Diltiazem HCl (Cardizem Cd) [address] [facility] Last Admin: 10/03/17 09:52 Dose: 300 mg Furosemide (Lasix) [address] [facility] Last Admin: 10/03/17 10:02 Dose: 40 mg Heparin Sodium (Porcine) (Heparin) 5,000 units SC Q12 [facility] PRN Reason: Protocol Last Admin: 10/03/17 09:53 Dose: 5,000 units Home Med (Home Med) [address] [facility] Last Admin: 10/03/17 10:01 Dose: 1 unit Insulin Human Regular (Humulin R Med) [address] [facility] PRN Reason: Protocol Last Admin: 10/03/17 08:05 Dose: 1 units Methylprednisolone (Solu-Medrol) [address] [facility] Last Admin: 10/03/17 10:06 Dose: 40 mg Tramadol HCl (Ultram) 50 mg PO Q8H PRN PRN Reason: Pain, moderate (4-7) Last Admin: 10/03/17 10:13 Dose: 50 mg - Labs Labs: 10/03/17 07:00 10/03/17 07:00 PT 11.8 SECONDS (9.4-12.5) 10/01/17 07:28 INR 1.07 (0.93-1.08) 10/01/17 07:28 APTT 27.0 Seconds (25.1-36.5) 10/01/17 07:28 - Constitutional Appears: Non-toxic, No Acute Distress - Head Exam Head Exam: ATRAUMATIC, NORMAL INSPECTION, NORMOCEPHALIC - ENT Exam ENT Exam: Mucous Membranes Moist - Respiratory Exam Respiratory Exam: Decreased Breath Sounds, NORMAL BREATHING PATTERN. absent: Rhonchi, Wheezes - Cardiovascular Exam Cardiovascular Exam: RRR, +S1, +S2 - GI/Abdominal Exam GI & Abdominal Exam: Soft, Normal Bowel Sounds. absent: Tenderness - Extremities Exam Extremities Exam: absent: Calf Tenderness, Pedal Edema - Neurological Exam Neurological Exam: Alert, Awake, Oriented x3 - Psychiatric Exam Psychiatric exam: Normal Affect, Normal Mood - Skin Skin Exam: Intact, Normal Color, Warm Assessment and Plan - Assessment and Plan (Free Text) Plan: 72 year old male with a past medical history of COPD, CHF, hypertension, diabetes, blindness, GERD, CAD, left lung mass, psoriasis, and atrial fibrillation who presents for COPD exacerbation. Chest x-ray showed nondisplaced fracture of left ribs. Nursing staff made aware to give patient rib support belt. Pt's prognosis also discussed with patient niece. 1.COPD exacerbation -Continue Duonebs prn. -Solumedrol 40 mg q12h -Continue Rocephin and Azithromycin - Blood cx negative at this time - O2 as needed - Pulmonology, Dr. Edmond following 2. Rib pain -Nondisplaced frx of left ribs -Support belt 3.h/o Atrial fibrillation - continue home meds 4. DM -ISS -Accuchecks ACHS 5. Pulmonary hypertension -Continue home meds 6. h/o Diastolic CHF -continue with Lasix 7. Constipation -continue with home meds 8. PPX - Protonix - SCDs Raul, PGY-2 <Jamie Fairchild - Last Filed: 10/03/17 18:28> Objective - Vital Signs/Intake and Output Vital Signs (last 24 hours): Temp Pulse Resp BP Pulse Ox 98.1 F 47 L 18 120/60 95 10/03/17 12:00 10/03/17 12:00 10/03/17 12:00 10/03/17 18:06 10/03/17 06:00 Intake and Output: 10/03/17 10/03/17 06:59 18:59 Intake Total 900 Output Total 500 975 Balance -500 -75 - Medications Medications: Current Medications Acetaminophen (Tylenol 325mg Tab) 650 mg PO Q6H PRN PRN Reason: Pain, moderate (4-7) Last Admin: 10/02/17 23:00 Dose: 650 mg Albuterol/Ipratropium (Duoneb 3 Mg/0.5 Mg (3 Ml) Ud) [id number] [facility] Last Admin: 10/03/17 13:45 Dose: 3 ml Albuterol/Ipratropium (Duoneb 3 Mg/0.5 Mg (3 Ml) Ud) 3 ml IH Q2H PRN PRN Reason: Shortness of Breath Azithromycin (Zithromax) 250 mg PO DAILY [facility] PRN Reason: Protocol Last Admin: 10/03/17 10:08 Dose: 250 mg Benzonatate (Tessalon Perles) [address] [facility] Last Admin: 10/03/17 17:27 Dose: Not Given Budesonide (Pulmicort Respules) 0.[id number] [facility] Last Admin: 10/03/17 08:42 Dose: 0.5 mg Cyanocobalamin (Vitamin B12 1000 Mcg Tab) [address] [facility] Last Admin: 10/03/17 10:07 Dose: 500 mcg Diltiazem HCl (Cardizem Cd) [address] [facility] Last Admin: 10/03/17 09:52 Dose: 300 mg Furosemide (Lasix) [address] [facility] Last Admin: 10/03/17 18:06 Dose: 40 mg Heparin Sodium (Porcine) (Heparin) 5,[address] [facility] PRN Reason: Protocol Last Admin: 10/03/17 09:53 Dose: 5,000 units Home Med (Home Med) [address] [facility] Last Admin: 10/03/17 18:05 Dose: 1 unit Ceftriaxone Sodium (Rocephin 1 Gram Ivpb) 1 gm in 100 mls @ 100 mls/hr IVPB DAILY [facility] PRN Reason: Protocol Last Admin: 10/03/17 12:33 Dose: 100 mls/hr Insulin Human Regular (Humulin R Med) [address] [facility] PRN Reason: Protocol Last Admin: 10/03/17 18:05 Dose: 5 units Methylprednisolone (Solu-Medrol) [address] [facility] Last Admin: 10/03/17 10:06 Dose: 40 mg Tramadol HCl (Ultram) 50 mg PO Q8H PRN PRN Reason: Pain, moderate (4-7) Last Admin: 10/03/17 10:13 Dose: 50 mg - Labs Labs: 10/03/17 07:00 10/03/17 07:00 PT 11.8 SECONDS (9.4-12.5) 10/01/17 07:28 INR 1.07 (0.93-1.08) 10/01/17 07:28 APTT 27.0 Seconds (25.1-36.5) 10/01/17 07:28 Attending/Attestation - Attestation I have personally seen and examined this patient.: Yes I have fully participated in the care of the patient.: Yes I have reviewed all pertinent clinical information, including history, physical exam and plan: Yes Notes (Text): I have seen and examined patient with resident. This is a 71 year old male with past medical history of legal blindness, severe COPD (on 4L of O2 at home), pulmonary hypertension, obstructive sleep apnea, psoriasis, HTN, NIDDM and CAD ( s/p stents) and being legally blind who was brought by patients niece for evaluation of dyspnea, productive cough, generalized weakness and had a mechanical fall. Will continue duonebs, solumedrol and doxy. Continue cardizem , bosentan and lasix. Patient is DNI DNR. Long-term prognosis is poor. As he had a mechanical fall and developed pain on the left side, rib series was ordered which revealed multiple rib fractures on 8,9, 10th and 11 ribs. Support belt was ordered. Continue analgesics including tramadol and tylenol. Discussed with the patient regarding option of intercostal nerve block however patient refused. Will order incentive spirometry. Patient reports that he still feels weak. PT eval ordered. I had a detailed discussion with patients amalia Springer and Palliative care nurse. Racheal wants to discuss with Dr Edmond before making any decision. Follow up with within 3-[address] Hale within 2-3 weeks. Plan to dc in am. Dr Jamie Fairchild
[2017-10-03] MEDS: cefTRIAXone 1 gm 1 GM/100 ML BAG IVPB SCH (12:33)
[2017-10-04] MEDS: Albuterol-Ipratrop 3 mg / 0.5 (3 ml) UD IH SCH ×4 (02:45→19:37)
[2017-10-04 07:07] LABS: BASO # 0.01 K/mm3 (0.0-2.0); GRAN # 23.44 (1.4-6.5); GRAN % 92.9 % (50.0-68.0); HEMATOCRIT 34.1 % (42.0-52.0); LYMPH # 0.9 (1.2-3.4); LYMPH % 3.5 % (22.0-35.0); MEAN CELL VOLUME 83.2 fl (80.0-105.0); MEAN CORPUSCULAR HEMOGLOBIN 25.1 pg (25.0-35.0); MEAN CORPUSCULAR HGB CONC 30.2 g/dl (31.0-37.0); MEAN PLATELET VOLUME 10.2 fl (7.0-11.0); MONO # 0.9 (0.1-0.6); MONO % 3.6 % (1.0-6.0); RED CELL DISTRIBUTION WIDTH 16.1 % (11.5-14.5)
[2017-10-04 07:39] LABS: ALKALINE PHOSPHATASE 134 U/L (38-126); ALT/SGPT 38 U/L (7-56); AST/SGOT 32 U/L (17-59); BILIRUBIN,TOTAL 0.4 mg/dL (0.2-1.3); BLOOD UREA NITROGEN 32 mg/dL (7-21); CALCIUM 9.8 mg/dL (8.4-10.5); CARBON DIOXIDE 35 mmol/L (21-33); CHLORIDE 91 mmol/L (98-107); GFR AFRICAN-AMERICAN > 60; GLUCOSE,RANDOM 188 mg/dL (70-110); POTASSIUM 4.6 mmol/L (3.6-5.0); SODIUM 134 mmol/L (132-148); TOTAL PROTEIN 7.1 g/dL (5.8-8.3)
[2017-10-04] MEDS: Budesonide 0.5 mg/2 ml Inhal Susp UD IH SCH ×2 (07:51→19:38)
[2017-10-04 08:11] LABS: WHITE BLOOD COUNT 25.2 10^3/ul (4.5-11.0)
[2017-10-04] MEDS: Insulin Reg-MEDIUM-Coverage SC SCH ×4 (08:45→22:28)
--- NOTE | 2017-10-04 09:45 | PN ---
DATE: 10/04/2017 PULMONARY PROGRESS NOTE SUBJECTIVE: The patient was seen and examined at the bedside. He is currently receiving inhalation with DuoNeb. He is also on azithromycin, Solu-Medrol, and budesonide. PHYSICAL EXAMINATION: VITAL SIGNS: Temperature 98, pulse 68, respirations 20, and pulse oximetry is reduced to 92% on nasal cannula. Intake and output is -600 mL. HEENT: Normocephalic, atraumatic. NECK: Supple with no jugular vein distention. CARDIOVASCULAR: S1 and S2. II/ systolic ejection murmur, irregular. LUNGS: Scattered coarse rhonchi bilaterally. Few end-expiratory wheezes. ABDOMEN: Soft and nontender. No organomegaly. EXTREMITIES: 1+ pedal edema. SKIN: Some cyanosis of toes due to poor circulation. NEUROLOGIC: Limited at present time. ASSESSMENT: 1. Exacerbation of end-stage chronic obstructive pulmonary disease. 2. Congestive heart failure. 3. Chronic hypoxia. PLAN: The patient is on intravenous steroids. I will start tapering the steroids. At this point, his condition is stabilizing and slightly improving. Today, his blood work was reviewed. His serum sodium is 134, potassium is 4.6, chloride is reduced to 91, BUN is slightly elevated at 32, and blood sugar is elevated at 188. With changes in treatment as indicated, however, his condition should continue to improve instead of he may be due for transfer to Transitional Care Unit. Luke Coulter MD
[2017-10-04] MEDS: MethylPREDNISolone 40 mg Vial IVP SCH ×2 (09:54→22:45)
[2017-10-04] MEDS: cefTRIAXone 1 gm 1 GM/100 ML BAG IVPB SCH (09:55)
[2017-10-04] MEDS: diltiaZEM 300 mg/24 Hours CD Cap PO SCH (09:56)
--- NOTE | 2017-10-04 11:00 | CP.PCM.PN ---
<Omer Carter - Last Filed: 10/04/17 10:57> Subjective - Date & Time of Evaluation Date of Evaluation: 10/04/17 Time of Evaluation: 10:57 - Subjective Subjective: Pt seen and examined at bedside. Pt doing well overnight with no acute events. Pt complaining of right arm pain and improved rib pain. Denies CP, SOB, N/V/D, fever, chills. Objective - Vital Signs/Intake and Output Vital Signs (last 24 hours): Temp Pulse Resp BP Pulse Ox 98.0 F 86 20 116/61 92 L 10/04/17 06:00 10/04/17 09:56 10/04/17 06:00 10/04/17 09:56 10/04/17 06:00 Intake and Output: 10/04/17 10/04/17 06:59 18:59 Intake Total 540 Output Total 1200 Balance -660 - Medications Medications: Current Medications Acetaminophen (Tylenol 325mg Tab) 650 mg PO Q6H PRN PRN Reason: Pain, moderate (4-7) Last Admin: 10/04/17 07:52 Dose: 650 mg Albuterol/Ipratropium (Duoneb 3 Mg/0.5 Mg (3 Ml) Ud) 3 ml IH [id number] [facility] Last Admin: 10/04/17 07:50 Dose: 3 ml Albuterol/Ipratropium (Duoneb 3 Mg/0.5 Mg (3 Ml) Ud) 3 ml IH Q2H PRN PRN Reason: Shortness of Breath Azithromycin (Zithromax) 250 mg PO DAILY [facility] PRN Reason: Protocol Last Admin: 10/04/17 09:55 Dose: 250 mg Benzonatate (Tessalon Perles) 100 mg PO TID [facility] Last Admin: 10/04/17 09:55 Dose: 100 mg Budesonide (Pulmicort Respules) 0.5 mg IH [id number] [facility] Last Admin: 10/04/17 07:51 Dose: 0.5 mg Cyanocobalamin (Vitamin B12 1000 Mcg Tab) 500 mcg PO DAILY [facility] Last Admin: 10/04/17 09:56 Dose: 500 mcg Diltiazem HCl (Cardizem Cd) 300 mg PO DAILY [facility] Last Admin: 10/04/17 09:56 Dose: 300 mg Furosemide (Lasix) 40 mg PO BID [facility] Last Admin: 10/04/17 09:56 Dose: 40 mg Heparin Sodium (Porcine) (Heparin) 5,000 units SC Q12 [facility] PRN Reason: Protocol Last Admin: 10/04/17 09:54 Dose: 5,000 units Home Med (Home Med) 1 unit PO BID [facility] Last Admin: 10/03/17 18:05 Dose: 1 unit Ceftriaxone Sodium (Rocephin 1 Gram Ivpb) 1 gm in 100 mls @ 100 mls/hr IVPB DAILY [facility] PRN Reason: Protocol Last Admin: 10/04/17 09:55 Dose: 100 mls/hr Insulin Human Regular (Humulin R Med) 0 units SC ACHS [facility] PRN Reason: Protocol Last Admin: 10/04/17 08:45 Dose: Not Given Methylprednisolone (Solu-Medrol) 20 mg IVP Q12 [facility] Last Admin: 10/04/17 09:54 Dose: 20 mg Tramadol HCl (Ultram) 50 mg PO Q8H PRN PRN Reason: Pain, moderate (4-7) Last Admin: 10/04/17 03:50 Dose: 50 mg - Labs Labs: 10/04/17 06:30 10/04/17 06:30 PT 11.8 SECONDS (9.4-12.5) 10/01/17 07:28 INR 1.07 (0.93-1.08) 10/01/17 07:28 APTT 27.0 Seconds (25.1-36.5) 10/01/17 07:28 - Constitutional Appears: Non-toxic, No Acute Distress - Head Exam Head Exam: ATRAUMATIC, NORMAL INSPECTION - ENT Exam ENT Exam: Mucous Membranes Moist - Respiratory Exam Respiratory Exam: Clear to Ausculation Bilateral, NORMAL BREATHING PATTERN. absent: Rales, Rhonchi, Wheezes - Cardiovascular Exam Cardiovascular Exam: RRR, +S1, +S2 - GI/Abdominal Exam GI & Abdominal Exam: Soft, Normal Bowel Sounds. absent: Tenderness - Extremities Exam Extremities Exam: absent: Calf Tenderness, Pedal Edema - Neurological Exam Neurological Exam: Alert, Awake, Oriented x3 - Psychiatric Exam Psychiatric exam: Normal Affect, Normal Mood - Skin Skin Exam: Intact, Normal Color, Warm Assessment and Plan - Assessment and Plan (Free Text) Plan: 72 year old male with a past medical history of COPD, CHF, hypertension, diabetes, blindness, GERD, CAD, left lung mass, psoriasis, and atrial fibrillation who presents for COPD exacerbation. Chest x-ray showed nondisplaced fracture of left 8-11 ribs. Rib support belt recommended to patient. Pt's prognosis remains poor at this time. Will taper steroids as per pulm. Pt will also have TCU evaluation. 1.COPD exacerbation -Continue Duonebs prn. -Taper Solumedrol to 20 mg q12h -Continue Rocephin and Azithromycin - Blood cx negative at this time - O2 as needed - Pulmonology, Dr. Edmond following 2. Rib pain -Nondisplaced frx of left 8-11 ribs -Support belt 3.h/o Atrial fibrillation - continue home meds 4. DM -ISS -Accuchecks ACHS 5. Pulmonary hypertension -Continue home meds 6. h/o Diastolic CHF -continue with Lasix 7. Constipation -continue with home meds 8. PPX - Protonix - SCDs Raul, PGY-2 <Jamie Fairchild B - Last Filed: 10/04/17 15:10> Objective - Vital Signs/Intake and Output Vital Signs (last 24 hours): Temp Pulse Resp BP Pulse Ox 97.8 F 63 18 136/67 92 L 10/04/17 12:00 10/04/17 12:00 10/04/17 12:00 10/04/17 12:00 10/04/17 06:00 Intake and Output: 10/04/17 10/04/17 06:59 18:59 Intake Total 840 Output Total 2100 Balance -1260 - Medications Medications: Current Medications Acetaminophen (Tylenol 325mg Tab) 650 mg PO Q6H PRN PRN Reason: Pain, moderate (4-7) Last Admin: 10/04/17 07:52 Dose: 650 mg Albuterol/Ipratropium (Duoneb 3 Mg/0.5 Mg (3 Ml) Ud) 3 ml IH [id number] [facility] Last Admin: 10/04/17 14:37 Dose: 3 ml Albuterol/Ipratropium (Duoneb 3 Mg/0.5 Mg (3 Ml) Ud) 3 ml IH Q2H PRN PRN Reason: Shortness of Breath Azithromycin (Zithromax) 250 mg PO DAILY [facility] PRN Reason: Protocol Last Admin: 10/04/17 09:55 Dose: 250 mg Benzonatate (Tessalon Perles) 100 mg PO TID [facility] Last Admin: 10/04/17 13:06 Dose: 100 mg Budesonide (Pulmicort Respules) 0.5 mg IH [id number] [facility] Last Admin: 10/04/17 07:51 Dose: 0.5 mg Cyanocobalamin (Vitamin B12 1000 Mcg Tab) 500 mcg PO DAILY [facility] Last Admin: 10/04/17 09:56 Dose: 500 mcg Diltiazem HCl (Cardizem Cd) 300 mg PO DAILY [facility] Last Admin: 10/04/17 09:56 Dose: 300 mg Furosemide (Lasix) 40 mg PO BID [facility] Last Admin: 10/04/17 09:56 Dose: 40 mg Heparin Sodium (Porcine) (Heparin) 5,000 units SC Q12 [facility] PRN Reason: Protocol Last Admin: 10/04/17 09:54 Dose: 5,000 units Home Med (Home Med) 1 unit PO BID [facility] Last Admin: 10/04/17 13:07 Dose: 1 unit Ceftriaxone Sodium (Rocephin 1 Gram Ivpb) 1 gm in 100 mls @ 100 mls/hr IVPB DAILY [facility] PRN Reason: Protocol Last Admin: 10/04/17 09:55 Dose: 100 mls/hr Insulin Human Regular (Humulin R Med) 0 units SC ACHS [facility] PRN Reason: Protocol Last Admin: 10/04/17 12:41 Dose: Not Given Methylprednisolone (Solu-Medrol) 20 mg IVP Q12 [facility] Last Admin: 10/04/17 09:54 Dose: 20 mg Tramadol HCl (Ultram) 50 mg PO Q8H PRN PRN Reason: Pain, moderate (4-7) Last Admin: 10/04/17 03:50 Dose: 50 mg - Labs Labs: 10/04/17 06:30 10/04/17 06:30 PT 11.8 SECONDS (9.4-12.5) 10/01/17 07:28 INR 1.07 (0.93-1.08) 10/01/17 07:28 APTT 27.0 Seconds (25.1-36.5) 10/01/17 07:28 Attending/Attestation - Attestation I have personally seen and examined this patient.: Yes I have fully participated in the care of the patient.: Yes I have reviewed all pertinent clinical information, including history, physical exam and plan: Yes Notes (Text): I have seen and examined patient with resident. This is a 71 year old male with past medical history of legal blindness, severe COPD (on 4L of O2 at home), pulmonary hypertension, obstructive sleep apnea, psoriasis, HTN, NIDDM and CAD ( s/p stents) and being legally blind who was brought by patients niece for evaluation of dyspnea, productive cough, generalized weakness and had a mechanical fall. Will continue duonebs, tapering doses of solumedrol and doxy. Continue cardizem, bosentan and lasix. Patient is DNI DNR. Long-term prognosis is poor. As he had a mechanical fall and developed pain on the left side, rib series was ordered which revealed multiple rib fractures on 8,9, 10th and 11 ribs. Support belt was ordered. Continue analgesics including tramadol and tylenol. Discussed with the patient regarding option of intercostal nerve block however patient refused. Encourage him to use incentive spirometry. Patient reports that he still feels weak. PT recommended TCU. TCU eval pending. I had a detailed discussion with patients amalia Springer over the phone. She wants to talk to Dr Edmond before making any decision regarding hospice. Follow up with within 3-[address] Hale within 2-3 weeks. Plan to dc in am. Dr Jamie Fairchild
[2017-10-04] MEDS: BOSENTAN 125 MG PO SCH ×2 (13:07→23:20)
[2017-10-04] MEDS ORDERED: Benzocaine/Menthol (Cepacol) Lozenge MT PRN (23:03)
[2017-10-05] MEDS: Albuterol-Ipratrop 3 mg / 0.5 (3 ml) UD IH SCH ×4 (02:16→20:31)
--- NOTE | 2017-10-05 06:47 | PN ---
PULMONARY PROGRESS NOTE SUBJECTIVE: The patient appears comfortable this morning. He is not short of breath at rest. PHYSICAL EXAMINATION: VITAL SIGNS: Temperature is 99.2, pulse is 74, respirations 18, blood pressure 126/72. Oxygen saturation on nasal cannula is 92% to 94%. HEENT: Normocephalic, atraumatic. NECK: No JVD. CARDIOVASCULAR: Systolic ejection murmur at the lower left sternal border. No S3 gallop. LUNGS: Decreased breath sounds at the bases. Much less/minimal rhonchi. No wheezing. EXTREMITIES: Mild edema. No cyanosis, no clubbing. Calves are nontender to palpation. GI: Abdomen is soft, nontender and nondistended. Bowel sounds are positive. SKIN: No acute rash. NEUROLOGIC: Limited at the present time. IMPRESSION: 1. Recurrent bronchitis. 2. Multiple left-sided rib fractures. Status post fall at home. 3. End-stage chronic obstructive pulmonary disease. 4. Left upper lobe lung mass. 5. Pulmonary hypertension. 6. Coronary artery disease. PLAN: The patient appears comfortable this morning. He is not short of breath at rest. He does state to feeling better overall. He also states that his rib pain is less. On physical exam, only minimal bronchospasm remains. I will continue with the current nebulizer treatments and low-dose intravenous steroids (decreased yesterday) for now. The patient also remains on antibiotic therapy. There are no temperatures noted. Repeat a.m. labs are pending. Input by Cydney Wolfe (Palliative Care) is noted. The patient may very well be transitioned to hospice in the near future. I will try to touch base with the niece (Racheal) sometime today. Clinical status of the patient is certainly improved-compared to the initial presentation. However, again, the future/overall status/prognosis for this patient does remain very poor. All are aware. I will discuss the above with Dr. Fairchild. Fabricio Edmond MD [facility]
[2017-10-05 06:53] LABS: BASO # 0.03 K/mm3 (0.0-2.0); BASO % 0.1 % (0.0-3.0); GRAN % 93.7 % (50.0-68.0); HEMATOCRIT 36.5 % (42.0-52.0); LYMPH # 0.9 (1.2-3.4); LYMPH % 2.9 % (22.0-35.0); MEAN CELL VOLUME 83.9 fl (80.0-105.0); MEAN CORPUSCULAR HEMOGLOBIN 25.1 pg (25.0-35.0); MEAN CORPUSCULAR HGB CONC 29.9 g/dl (31.0-37.0); MEAN PLATELET VOLUME 10.5 fl (7.0-11.0); MONO % 3.3 % (1.0-6.0); RED CELL DISTRIBUTION WIDTH 16.2 % (11.5-14.5)
[2017-10-05 07:06] LABS: WHITE BLOOD COUNT 29.9 10^3/ul (4.5-11.0)
[2017-10-05 07:13] LABS: ALKALINE PHOSPHATASE 140 U/L (38-126); ALT/SGPT 76 U/L (7-56); AST/SGOT 48 U/L (17-59); BILIRUBIN,TOTAL 0.5 mg/dL (0.2-1.3); BLOOD UREA NITROGEN 36 mg/dL (7-21); CALCIUM 10.1 mg/dL (8.4-10.5); CARBON DIOXIDE 35 mmol/L (21-33); CHLORIDE 92 mmol/L (98-107); GFR AFRICAN-AMERICAN > 60; GLUCOSE,RANDOM 219 mg/dL (70-110); POTASSIUM 4.8 mmol/L (3.6-5.0); SODIUM 134 mmol/L (132-148); TOTAL PROTEIN 7.2 g/dL (5.8-8.3)
[2017-10-05] MEDS: Budesonide 0.5 mg/2 ml Inhal Susp UD IH SCH ×2 (08:04→20:31)
[2017-10-05] MEDS: Insulin Reg-MEDIUM-Coverage SC SCH ×4 (09:19→21:54)
[2017-10-05] MEDS: MethylPREDNISolone 40 mg Vial IVP SCH ×2 (09:20→21:41)
[2017-10-05] MEDS: diltiaZEM 300 mg/24 Hours CD Cap PO SCH (09:21)
[2017-10-05] MEDS: cefTRIAXone 1 gm 1 GM/100 ML BAG IVPB SCH (10:11)
[2017-10-05] MEDS: BOSENTAN 125 MG PO SCH ×2 (10:13→18:05)
--- NOTE | 2017-10-05 13:48 | CP.PCM.PN ---
<Mirza Terrazas - Last Filed: 10/05/17 18:38> Subjective - Date & Time of Evaluation Date of Evaluation: 10/05/17 Time of Evaluation: 06:45 - Subjective Subjective: Patient seen and examined at bedside. Patient reports feeling better than yesterday. He reports an improvement in shortness of breath. Patient still reports some rib pain. Patient denies chest pain, lightheadedness, dizziness, nausea, vomiting, headaches, or any other complaints. Objective - Vital Signs/Intake and Output Vital Signs (last 24 hours): Temp Pulse Resp BP Pulse Ox 98.8 F 64 20 128/77 92 L 10/05/17 13:40 10/05/17 13:40 10/05/17 13:40 10/05/17 13:40 10/05/17 06:00 Intake and Output: 10/05/17 10/05/17 06:59 18:59 Intake Total 1440 Output Total 875 Balance 565 - Medications Medications: Current Medications Acetaminophen (Tylenol 325mg Tab) 650 mg PO Q6H PRN PRN Reason: Pain, moderate (4-7) Last Admin: 10/05/17 13:32 Dose: 650 mg Albuterol/Ipratropium (Duoneb 3 Mg/0.5 Mg (3 Ml) Ud) 3 ml IH [id number] [facility] Last Admin: 10/05/17 08:04 Dose: 3 ml Albuterol/Ipratropium (Duoneb 3 Mg/0.5 Mg (3 Ml) Ud) 3 ml IH Q2H PRN PRN Reason: Shortness of Breath Azithromycin (Zithromax) 250 mg PO DAILY [facility] PRN Reason: Protocol Last Admin: 10/05/17 09:22 Dose: 250 mg Benzocaine/Menthol (Cepacol Sore Throat) 1 padmini MT Q4H PRN PRN Reason: Sore Throat Last Admin: 10/04/17 23:20 Dose: 1 padmini Benzonatate (Tessalon Perles) 100 mg PO TID [facility] Last Admin: 10/05/17 13:16 Dose: 100 mg Budesonide (Pulmicort Respules) 0.5 mg IH [id number] [facility] Last Admin: 10/05/17 08:04 Dose: 0.5 mg Cyanocobalamin (Vitamin B12 1000 Mcg Tab) 500 mcg PO DAILY [facility] Last Admin: 10/05/17 09:22 Dose: 500 mcg Diltiazem HCl (Cardizem Cd) 300 mg PO DAILY [facility] Last Admin: 10/05/17 09:21 Dose: 300 mg Furosemide (Lasix) 40 mg PO BID [facility] Last Admin: 10/05/17 09:22 Dose: 40 mg Heparin Sodium (Porcine) (Heparin) 5,000 units SC Q12 [facility] PRN Reason: Protocol Last Admin: 10/05/17 09:20 Dose: 5,000 units Home Med (Home Med) 1 unit PO BID [facility] Last Admin: 10/05/17 10:13 Dose: 1 unit Ceftriaxone Sodium (Rocephin 1 Gram Ivpb) 1 gm in 100 mls @ 100 mls/hr IVPB DAILY [facility] PRN Reason: Protocol Last Admin: 10/05/17 10:11 Dose: 100 mls/hr Insulin Human Regular (Humulin R Med) 0 units SC ACHS [facility] PRN Reason: Protocol Last Admin: 10/05/17 12:35 Dose: Not Given Methylprednisolone (Solu-Medrol) 20 mg IVP Q12 [facility] Last Admin: 10/05/17 09:20 Dose: 20 mg Non-Formulary Medication (Sitagliptin Phos/Metformin Hcl [Janumet 50-500 Mg Tablet]) 1 each PO BID [facility] Tramadol HCl (Ultram) 50 mg PO Q8H PRN PRN Reason: Pain, moderate (4-7) Last Admin: 10/05/17 10:12 Dose: 50 mg - Labs Labs: 10/05/17 05:00 10/05/17 06:30 PT 11.8 SECONDS (9.4-12.5) 10/01/17 07:28 INR 1.07 (0.93-1.08) 10/01/17 07:28 APTT 27.0 Seconds (25.1-36.5) 10/01/17 07:28 - Head Exam Head Exam: ATRAUMATIC, NORMAL INSPECTION, NORMOCEPHALIC - Eye Exam Eye Exam: EOMI, Normal appearance, PERRL Pupil Exam: NORMAL ACCOMODATION - ENT Exam ENT Exam: Mucous Membranes Moist, Normal Exam, Normal Oropharynx - Respiratory Exam Respiratory Exam: Clear to Ausculation Bilateral, NORMAL BREATHING PATTERN. absent: Chest Wall Tenderness, Prolonged Expiratory Phase, Respiratory Distress - Cardiovascular Exam Cardiovascular Exam: REGULAR RHYTHM, +S1, +S2 - GI/Abdominal Exam GI & Abdominal Exam: Soft, Normal Bowel Sounds. absent: Rigid, Hyperactive Bowel Sounds - Back Exam Back Exam: NORMAL INSPECTION. absent: CVA tenderness (L), CVA tenderness (R), paraspinal tenderness - Neurological Exam Neurological Exam: Alert, Awake, CN II-XII Intact, Oriented x3 - Psychiatric Exam Psychiatric exam: Normal Affect, Normal Mood - Skin Skin Exam: Dry, Intact, Normal Color, Rash. absent: Diaphoretic, Pallor, Pallor Assessment and Plan - Assessment and Plan (Free Text) Assessment: 72 year old male with a past medical history of COPD, CHF, hypertension, diabetes, blindness, GERD, CAD, left lung mass, psoriasis, and atrial fibrillation who presents for COPD exacerbation. Chest x-ray showed nondisplaced fracture of left 8-11 ribs. Rib support belt recommended to patient. Pt's prognosis remains poor at this time. Will taper steroids as per pulm. Pt will also have TCU evaluation. Plan: 1.COPD exacerbation -Continue Duonebs prn. -Taper Solumedrol to 20 mg q12h -Continue Rocephin and Azithromycin - Blood cx negative at this time - O2 as needed - Pulmonology, Dr. Edmond following 2. Rib pain -Nondisplaced frx of left 8-11 ribs -Support belt -PT eval recommended TCU. TCU eval pending. Will f/u with rec's 3.h/o Atrial fibrillation - continue home meds 4. DM -Janumet started. -ISS -Accuchecks ACHS 5. Pulmonary hypertension -Continue home meds 6. h/o Diastolic CHF -continue with Lasix 7. Constipation -continue with home meds 8. PPX - Protonix - SCDs <Jamie Fairchild - Last Filed: 10/06/17 14:42> Objective - Vital Signs/Intake and Output Vital Signs (last 24 hours): Temp Pulse Resp BP Pulse Ox 97.1 F L 64 19 138/75 95 10/06/17 12:00 10/06/17 12:00 10/06/17 12:00 10/06/17 12:00 10/06/17 06:00 Intake and Output: 10/06/17 10/06/17 06:59 18:59 Intake Total 120 Output Total 450 Balance -330 - Medications Medications: Current Medications Acetaminophen (Tylenol 325mg Tab) 650 mg PO Q6H PRN PRN Reason: Pain, moderate (4-7) Last Admin: 10/06/17 11:36 Dose: 650 mg Azithromycin (Zithromax) 250 mg PO DAILY [facility] PRN Reason: Protocol Last Admin: 10/06/17 10:59 Dose: 250 mg Benzocaine/Menthol (Cepacol Sore Throat) 1 padmini MT Q4H PRN PRN Reason: Sore Throat Last Admin: 10/04/17 23:20 Dose: 1 padmini Benzonatate (Tessalon Perles) 100 mg PO TID [facility] Last Admin: 10/06/17 11:00 Dose: 100 mg Budesonide (Pulmicort Respules) 0.5 mg IH [id number] [facility] Last Admin: 10/06/17 08:07 Dose: 0.5 mg Cyanocobalamin (Vitamin B12 1000 Mcg Tab) 500 mcg PO DAILY [facility] Last Admin: 10/06/17 11:00 Dose: 500 mcg Diltiazem HCl (Cardizem Cd) 300 mg PO DAILY [facility] Last Admin: 10/06/17 11:00 Dose: 300 mg Furosemide (Lasix) 40 mg PO BID [facility] Last Admin: 10/06/17 11:00 Dose: 40 mg Heparin Sodium (Porcine) (Heparin) 5,000 units SC Q12 [facility] PRN Reason: Protocol Last Admin: 10/06/17 11:01 Dose: 5,000 units Home Med (Home Med) 1 unit PO BID [facility] Last Admin: 10/05/17 18:05 Dose: 1 unit Dextrose/Sodium Chloride (Dextrose 5%/0.45% Ns 1000 Ml) 1,000 mls @ 50 mls/hr IV .Q20H [facility] Last Admin: 10/06/17 11:18 Dose: 50 mls/hr Cefepime HCl (Maxipime 1gm) 1 gm in 100 mls @ 100 mls/hr IVPB Q24H [facility] PRN Reason: Protocol Insulin Human Regular (Humulin R Med) 0 units SC ACHS [facility] PRN Reason: Protocol Last Admin: 10/06/17 12:23 Dose: Not Given Levalbuterol HCl (Xopenex) 0.63 mg IH [id number] [facility] Last Admin: 10/06/17 13:57 Dose: 0.63 mg Levalbuterol HCl (Xopenex) 0.63 mg IH Q2 PRN PRN Reason: Shortness of Breath Metformin HCl (Glucophage) 500 mg PO BID [facility] Last Admin: 10/06/17 11:01 Dose: 500 mg Methylprednisolone (Solu-Medrol) 20 mg IVP Q12 [facility] Last Admin: 10/06/17 11:01 Dose: 20 mg Sitagliptin Phosphate (Januvia) 50 mg PO BID [facility] Last Admin: 10/06/17 11:00 Dose: 50 mg Tramadol HCl (Ultram) 50 mg PO Q8H PRN PRN Reason: Pain, moderate (4-7) Last Admin: 10/06/17 12:12 Dose: 50 mg - Labs Labs: 10/06/17 07:00 10/06/17 07:00 PT 11.8 SECONDS (9.4-12.5) 10/01/17 07:28 INR 1.07 (0.93-1.08) 10/01/17 07:28 APTT 27.0 Seconds (25.1-36.5) 10/01/17 07:28 Attending/Attestation - Attestation I have personally seen and examined this patient.: Yes I have fully participated in the care of the patient.: Yes I have reviewed all pertinent clinical information, including history, physical exam and plan: Yes Notes (Text): I have seen and examined patient with resident. This is a 71 year old male with past medical history of legal blindness, severe COPD (on 4L of O2 at home), pulmonary hypertension, obstructive sleep apnea, psoriasis, HTN, NIDDM and CAD ( s/p stents) and being legally blind who was brought by patients niece for evaluation of dyspnea, productive cough, generalized weakness and had a mechanical fall. Will continue duonebs, tapering doses of solumedrol and doxy. Continue cardizem, bosentan and lasix. Patient is DNI DNR. Long-term prognosis is poor. As he had a mechanical fall and developed pain on the left side, rib series was ordered which revealed multiple rib fractures on 8,9, 10th and 11 ribs. Support belt was ordered. Continue analgesics including tramadol and tylenol. Discussed with the patient regarding option of intercostal nerve block however patient refused. Encourage him to use incentive spirometry. Patient reports that he still feels weak. PT recommended TCU. TCU eval still pending. I had a detailed discussion with patients amalia Springer over the phone. She wants to talk to Dr Edmond before making any decision regarding hospice. Follow up with within 3-[address] Hale within 2-3 weeks. Plan to dc in am. Dr Jamie Fairchild
[2017-10-05] MEDS ORDERED: cefTRIAXone 1 gm 1 GM/100 ML BAG IVPB SCH (16:39)
[2017-10-05] MEDS ORDERED: SITAGLIPTIN PHOS PO SCH (18:00)
[2017-10-05] MEDS ORDERED: [UNRECOGNIZED DRUG - OTHER] PO SCH (18:00)
[2017-10-05] MEDS ORDERED: METFORMIN HCL PO SCH (18:00)
[2017-10-06] MEDS: Albuterol-Ipratrop 3 mg / 0.5 (3 ml) UD IH SCH (02:40)
[2017-10-06] MEDS ORDERED: Levalbuterol 0.63 MG/3 ML Inhal Soln UD IH PRN (06:36)
--- NOTE | 2017-10-06 07:02 | PN ---
PULMONARY PROGRESS NOTE SUBJECTIVE: The patient is out of bed, sitting in the chair. He appears very comfortable. He is not short of breath at rest. PHYSICAL EXAMINATION: VITAL SIGNS: Temperature is 97.0, pulse is 74, respirations 19, blood pressure 126/86. Oxygen saturation on nasal cannula is 95%. HEENT: Normocephalic, atraumatic. NECK: No JVD. CARDIOVASCULAR: Systolic ejection murmur at the lower left sternal border. No S3 gallop. LUNGS: Decreased breath sounds at the bases. Very minimal/less rhonchi. No wheezing. EXTREMITIES: Mild edema, no cyanosis, no clubbing. Calves are nontender to palpation. GI: Abdomen is soft, nontender and nondistended. Bowel sounds are positive. SKIN: No acute rash. NEUROLOGIC: Limited at the present time. IMPRESSION: 1. Recurrent bronchitis. 2. Multiple left-sided rib fractures. Status post fall at home. 3. End-stage chronic obstructive pulmonary disease. 4. Left upper lobe lung mass. 5. Pulmonary hypertension. 6. Coronary artery disease. 7. Ventricular tachycardia. PLAN: The patient appears comfortable this morning. He is not short of breath at rest. He is out of bed, sitting in the chair. He does state to feeling much better overall. On physical exam, his bronchospasm continues to resolve. In addition, there is no significant alveolar-arterial gradient. I did discuss the case with the night nurse at length. Apparently, the patient had a run of ventricular tachycardia (approximately 20 beats) during the last shift. I will now change the nebulizer treatments to half-strength Xopenex. Repeat a.m. labs are pending. In particular, we will follow the electrolytes closely. Clinical status of the patient is certainly improved-compared to the initial presentation. However, again, the overall/future status/prognosis for this patient remains very poor. All are aware. Hopefully, I will discuss the case again with Racheal (the niece) this morning. I will also discuss the case with the attending physician later this morning. Fabricio Edmond MD [facility]
[2017-10-06 07:13] LABS: BASO # 0.02 K/mm3 (0.0-2.0); BASO % 0.1 % (0.0-3.0); GRAN # 27.36 (1.4-6.5); GRAN % 90.3 % (50.0-68.0); HEMATOCRIT 36.7 % (42.0-52.0); LYMPH # 1.3 (1.2-3.4); LYMPH % 4.2 % (22.0-35.0); MEAN CELL VOLUME 83.2 fl (80.0-105.0); MEAN CORPUSCULAR HEMOGLOBIN 24.9 pg (25.0-35.0); MEAN PLATELET VOLUME 10.3 fl (7.0-11.0); MONO # 1.7 (0.1-0.6); MONO % 5.4 % (1.0-6.0); RED CELL DISTRIBUTION WIDTH 16.3 % (11.5-14.5)
[2017-10-06] MEDS: Insulin Reg-MEDIUM-Coverage SC SCH ×4 (07:22→21:45)
[2017-10-06 07:31] LABS: ALKALINE PHOSPHATASE 138 U/L (38-126); ALT/SGPT 81 U/L (7-56); AST/SGOT 38 U/L (17-59); BILIRUBIN,TOTAL 0.5 mg/dL (0.2-1.3); BLOOD UREA NITROGEN 36 mg/dL (7-21); CALCIUM 10.3 mg/dL (8.4-10.5); CARBON DIOXIDE 36 mmol/L (21-33); CHLORIDE 90 mmol/L (98-107); GFR AFRICAN-AMERICAN > 60; GLUCOSE,RANDOM 135 mg/dL (70-110); MAGNESIUM 2.3 mg/dL (1.7-2.2); POTASSIUM 4.3 mmol/L (3.6-5.0); SODIUM 136 mmol/L (132-148); TOTAL PROTEIN 7.2 g/dL (5.8-8.3)
[2017-10-06 07:36] LABS: TROPONIN I < 0.01 ng/mL
[2017-10-06 07:41] LABS: WHITE BLOOD COUNT 30.3 10^3/ul (4.5-11.0)
[2017-10-06] MEDS: Budesonide 0.5 mg/2 ml Inhal Susp UD IH SCH ×2 (08:07→19:50)
[2017-10-06] MEDS: Levalbuterol 0.63 MG/3 ML Inhal Soln UD IH SCH ×3 (08:07→19:50)
[2017-10-06] MEDS: BOSENTAN 125 MG PO SCH ×2 (10:30→18:07)
[2017-10-06] MEDS: diltiaZEM 300 mg/24 Hours CD Cap PO SCH (11:00)
[2017-10-06] MEDS: MethylPREDNISolone 40 mg Vial IVP SCH ×2 (11:01→21:45)
[2017-10-06] MEDS: Dextrose 5%/0.45% NS 1,000 ML IV SCH (11:18)
--- NOTE | 2017-10-06 14:05 | CP.PCM.PN ---
<Mirza Trerazas - Last Filed: 10/06/17 14:05> Subjective - Date & Time of Evaluation Date of Evaluation: 10/06/17 Time of Evaluation: 07:03 - Subjective Subjective: Patient seen and examined at bedside. Per nursing the patient had 21 beats of VTACH last night however was asymptomatic. The patient denies any chest pain, shortness of breath, lightheadedness, dizziness, abdominal pain, changes in vision, fevers, chills, nausea, vomiting, or any other complaints. Objective - Vital Signs/Intake and Output Vital Signs (last 24 hours): Temp Pulse Resp BP Pulse Ox 97.1 F L 64 19 138/75 95 10/06/17 12:00 10/06/17 12:00 10/06/17 12:00 10/06/17 12:00 10/06/17 06:00 Intake and Output: 10/06/17 10/06/17 06:59 18:59 Intake Total 120 Output Total 450 Balance -330 - Medications Medications: Current Medications Acetaminophen (Tylenol 325mg Tab) 650 mg PO Q6H PRN PRN Reason: Pain, moderate (4-7) Last Admin: 10/06/17 11:36 Dose: 650 mg Azithromycin (Zithromax) 250 mg PO DAILY [facility] PRN Reason: Protocol Last Admin: 10/06/17 10:59 Dose: 250 mg Benzocaine/Menthol (Cepacol Sore Throat) 1 padmini MT Q4H PRN PRN Reason: Sore Throat Last Admin: 10/04/17 23:20 Dose: 1 padmini Benzonatate (Tessalon Perles) 100 mg PO TID [facility] Last Admin: 10/06/17 11:00 Dose: 100 mg Budesonide (Pulmicort Respules) 0.5 mg IH [id number] [facility] Last Admin: 10/06/17 08:07 Dose: 0.5 mg Cyanocobalamin (Vitamin B12 1000 Mcg Tab) 500 mcg PO DAILY [facility] Last Admin: 10/06/17 11:00 Dose: 500 mcg Diltiazem HCl (Cardizem Cd) 300 mg PO DAILY [facility] Last Admin: 10/06/17 11:00 Dose: 300 mg Furosemide (Lasix) 40 mg PO BID [facility] Last Admin: 10/06/17 11:00 Dose: 40 mg Heparin Sodium (Porcine) (Heparin) 5,000 units SC Q12 [facility] PRN Reason: Protocol Last Admin: 10/06/17 11:01 Dose: 5,000 units Home Med (Home Med) 1 unit PO BID [facility] Last Admin: 10/05/17 18:05 Dose: 1 unit Dextrose/Sodium Chloride (Dextrose 5%/0.45% Ns 1000 Ml) 1,000 mls @ 50 mls/hr IV .Q20H [facility] Last Admin: 10/06/17 11:18 Dose: 50 mls/hr Cefepime HCl (Maxipime 1gm) 1 gm in 100 mls @ 100 mls/hr IVPB Q24H [facility] PRN Reason: Protocol Insulin Human Regular (Humulin R Med) 0 units SC ACHS [facility] PRN Reason: Protocol Last Admin: 10/06/17 12:23 Dose: Not Given Levalbuterol HCl (Xopenex) 0.63 mg IH [id number] [facility] Last Admin: 10/06/17 13:57 Dose: 0.63 mg Levalbuterol HCl (Xopenex) 0.63 mg IH Q2 PRN PRN Reason: Shortness of Breath Metformin HCl (Glucophage) 500 mg PO BID [facility] Last Admin: 10/06/17 11:01 Dose: 500 mg Methylprednisolone (Solu-Medrol) 20 mg IVP Q12 [facility] Last Admin: 10/06/17 11:01 Dose: 20 mg Sitagliptin Phosphate (Januvia) 50 mg PO BID [facility] Last Admin: 10/06/17 11:00 Dose: 50 mg Tramadol HCl (Ultram) 50 mg PO Q8H PRN PRN Reason: Pain, moderate (4-7) Last Admin: 10/06/17 12:12 Dose: 50 mg - Labs Labs: 10/06/17 07:00 10/06/17 07:00 PT 11.8 SECONDS (9.4-12.5) 10/01/17 07:28 INR 1.07 (0.93-1.08) 10/01/17 07:28 APTT 27.0 Seconds (25.1-36.5) 10/01/17 07:28 - Head Exam Head Exam: ATRAUMATIC, NORMAL INSPECTION, NORMOCEPHALIC - Eye Exam Eye Exam: EOMI, Normal appearance, PERRL. absent: Periorbital tenderness Pupil Exam: NORMAL ACCOMODATION, PERRL. absent: Irregular, Unequal - ENT Exam ENT Exam: Mucous Membranes Moist, Normal Oropharynx - Neck Exam Neck Exam: Full ROM, Normal Inspection - Respiratory Exam Respiratory Exam: Clear to Ausculation Bilateral, NORMAL BREATHING PATTERN. absent: Chest Wall Tenderness, Prolonged Expiratory Phase, Respiratory Distress - Cardiovascular Exam Cardiovascular Exam: REGULAR RHYTHM, +S1, +S2 - GI/Abdominal Exam GI & Abdominal Exam: Soft, Normal Bowel Sounds - Extremities Exam Extremities Exam: absent: Pedal Edema - Back Exam Back Exam: NORMAL INSPECTION. absent: CVA tenderness (L), CVA tenderness (R), paraspinal tenderness Additional comments: binder placed around chest and ribs. - Neurological Exam Neurological Exam: Alert, Awake - Psychiatric Exam Psychiatric exam: Normal Affect, Normal Mood - Skin Skin Exam: Dry, Intact Assessment and Plan - Assessment and Plan (Free Text) Assessment: 72 year old male with a past medical history of COPD, CHF, hypertension, diabetes, blindness, GERD, CAD, left lung mass, psoriasis, and atrial fibrillation who presents for COPD exacerbation. Chest x-ray showed nondisplaced fracture of left 8-11 ribs. Rib support belt recommended to patient. Pt's prognosis remains poor at this time. Will taper steroids as per pulm. Pt will also have TCU evaluation. Patient overnight had a run of vtach 21 beats. Plan: 1.COPD exacerbation -Continue Duonebs prn. -Taper Solumedrol to 20 mg q12h -Rocephin changed to Cefepime. Continue Azithromycin - Blood cx negative at this time - O2 as needed - Pulmonology, Dr. Edmond following 2. Rib pain -Nondisplaced frx of left 8-11 ribs -Support belt -PT eval recommended TCU. TCU eval pending. Will f/u with rec's 3.h/o Atrial fibrillation - continue home meds 4. DM -Janumet started. -ISS -Accuchecks ACHS 5. Pulmonary hypertension -Continue home meds 6. h/o Diastolic CHF -continue with Lasix 7. Constipation -continue with home meds 8. PPX - Protonix - SCDs <Jamie Fairchild - Last Filed: 10/07/17 14:38> Objective - Vital Signs/Intake and Output Vital Signs (last 24 hours): Temp Pulse Resp BP Pulse Ox 99.3 F 71 18 126/65 89 L 10/07/17 12:00 10/07/17 12:00 10/07/17 12:00 10/07/17 12:00 10/06/17 18:00 Intake and Output: 10/07/17 10/07/17 06:59 18:59 Intake Total 720 Output Total 650 Balance 70 - Medications Medications: Current Medications Acetaminophen (Tylenol 325mg Tab) 650 mg PO Q6H PRN PRN Reason: Pain, moderate (4-7) Last Admin: 10/07/17 06:47 Dose: 650 mg Benzocaine/Menthol (Cepacol Sore Throat) 1 padmini MT Q4H PRN PRN Reason: Sore Throat Last Admin: 10/04/17 23:20 Dose: 1 padmini Benzonatate (Tessalon Perles) 100 mg PO TID [facility] Last Admin: 10/07/17 13:25 Dose: 100 mg Budesonide (Pulmicort Respules) 0.5 mg IH [id number] [facility] Last Admin: 10/07/17 07:58 Dose: 0.5 mg Cyanocobalamin (Vitamin B12 1000 Mcg Tab) 500 mcg PO DAILY [facility] Last Admin: 10/07/17 10:20 Dose: 500 mcg Diltiazem HCl (Cardizem Cd) 300 mg PO DAILY [facility] Last Admin: 10/07/17 10:30 Dose: 300 mg Furosemide (Lasix) 40 mg PO BID [facility] Last Admin: 10/07/17 10:20 Dose: 40 mg Heparin Sodium (Porcine) (Heparin) 5,000 units SC Q12 [facility] PRN Reason: Protocol Last Admin: 10/07/17 10:31 Dose: 5,000 units Home Med (Home Med) 1 unit PO BID [facility] Last Admin: 10/07/17 10:46 Dose: 1 unit Dextrose/Sodium Chloride (Dextrose 5%/0.45% Ns 1000 Ml) 1,000 mls @ 50 mls/hr IV .Q20H [facility] Last Admin: 10/07/17 06:44 Dose: 50 mls/hr Cefepime HCl (Maxipime 1gm) 1 gm in 100 mls @ 100 mls/hr IVPB Q24H [facility] PRN Reason: Protocol Last Admin: 10/07/17 13:25 Dose: 100 mls/hr Insulin Human Regular (Humulin R Med) 0 units SC ACHS [facility] PRN Reason: Protocol Last Admin: 10/07/17 12:14 Dose: Not Given Levalbuterol HCl (Xopenex) 0.63 mg IH [id number] [facility] Last Admin: 10/07/17 13:39 Dose: 0.63 mg Levalbuterol HCl (Xopenex) 0.63 mg IH Q2 PRN PRN Reason: Shortness of Breath Metformin HCl (Glucophage) 500 mg PO BID [facility] Last Admin: 10/07/17 10:30 Dose: 500 mg Prednisone (Prednisone Tab) 30 mg PO DAILY [facility] Last Admin: 10/07/17 10:20 Dose: 30 mg Sitagliptin Phosphate (Januvia) 50 mg PO BID [facility] Last Admin: 10/07/17 10:30 Dose: 50 mg Tramadol HCl (Ultram) 50 mg PO Q8H PRN PRN Reason: Pain, moderate (4-7) Last Admin: 10/07/17 10:31 Dose: 50 mg - Labs Labs: 10/07/17 06:50 10/07/17 06:50 PT 11.8 SECONDS (9.4-12.5) 10/01/17 07:28 INR 1.07 (0.93-1.08) 10/01/17 07:28 APTT 27.0 Seconds (25.1-36.5) 10/01/17 07:28 Attending/Attestation - Attestation I have personally seen and examined this patient.: Yes I have fully participated in the care of the patient.: Yes I have reviewed all pertinent clinical information, including history, physical exam and plan: Yes Notes (Text): I have seen and examined patient with resident. This is a 71 year old male with past medical history of legal blindness, severe COPD (on 4L of O2 at home), pulmonary hypertension, obstructive sleep apnea, psoriasis, HTN, NIDDM and CAD ( s/p stents) and being legally blind who was brought by patients niece for evaluation of dyspnea, productive cough, generalized weakness and had a mechanical fall. Will continue tapering doses of solumedrol and doxy. Leukocytosis got worse today. Cefepime was added. Clinically patient appears better. There were 21 beats of vtach last night. Duonebs stopped and was started on xopenex. Continue cardizem, bosentan and lasix. Patient is DNI DNR. Long-term prognosis is poor. Patient was found to have multiple rib fractures on 8,9, 10th and 11 ribs. Continue Support belt. Continue analgesics including tramadol and tylenol. Discussed with the patient regarding option of intercostal nerve block however patient refused. Encourage him to use incentive spirometry. Patient reports that he still feels weak. PT recommended TCU. Patient is accepted in TCU eval however authorization pending from insurance. I had a detailed discussion with patients niece Racheal and Dr Edmond. Patient and his niece will make decision soon regarding hospice. Follow up with within 3-[address] Hale within 2-[address] Jamie Fairchild
[2017-10-06] MEDS: Cefepime 1gm in NS 100ml 1 GM/100 ML BAG IVPB SCH (18:05)
[2017-10-07] MEDS: Levalbuterol 0.63 MG/3 ML Inhal Soln UD IH SCH ×3 (01:17→13:39)
[2017-10-07] MEDS: Dextrose 5%/0.45% NS 1,000 ML IV SCH (06:44)
[2017-10-07 07:08] LABS: BASO # 0.02 K/mm3 (0.0-2.0); BASO % 0.1 % (0.0-3.0); GRAN # 27.02 (1.4-6.5); GRAN % 91.6 % (50.0-68.0); HEMATOCRIT 36.8 % (42.0-52.0); LYMPH # 1.3 (1.2-3.4); LYMPH % 4.3 % (22.0-35.0); MEAN CELL VOLUME 84.2 fl (80.0-105.0); MEAN CORPUSCULAR HEMOGLOBIN 24.9 pg (25.0-35.0); MEAN CORPUSCULAR HGB CONC 29.6 g/dl (31.0-37.0); MEAN PLATELET VOLUME 10.3 fl (7.0-11.0); MONO # 1.2 (0.1-0.6); PLATELET COUNT 306 10^3/uL (120.0-450.0); RED CELL DISTRIBUTION WIDTH 16.3 % (11.5-14.5)
[2017-10-07 07:24] LABS: WHITE BLOOD COUNT 29.5 10^3/ul (4.5-11.0)
[2017-10-07] MEDS: Budesonide 0.5 mg/2 ml Inhal Susp UD IH SCH (07:58)
[2017-10-07 08:03] LABS: ALKALINE PHOSPHATASE 138 U/L (38-126); ALT/SGPT 95 U/L (7-56); AST/SGOT 40 U/L (17-59); BILIRUBIN,TOTAL 0.5 mg/dL (0.2-1.3); BLOOD UREA NITROGEN 30 mg/dL (7-21); CALCIUM 9.8 mg/dL (8.4-10.5); CARBON DIOXIDE 37 mmol/L (21-33); CHLORIDE 92 mmol/L (98-107); GFR AFRICAN-AMERICAN > 60; GLUCOSE,RANDOM 163 mg/dL (70-110); POTASSIUM 4.4 mmol/L (3.6-5.0); SODIUM 135 mmol/L (132-148); TOTAL PROTEIN 6.9 g/dL (5.8-8.3)
[2017-10-07 08:05] LABS: BAND 1 % (0-2); NEUTROPHIL 90 % (50.0-70.0)
[2017-10-07 08:06] LABS: PLATELET ESTIMATE NORMAL (NORMAL)
--- NOTE | 2017-10-07 08:26 | PN ---
PULMONARY PROGRESS NOTE SUBJECTIVE: The patient appears comfortable this morning. He is not short of breath at rest. PHYSICAL EXAMINATION: VITAL SIGNS: Temperature is 97.5, pulse on the monitor is 57, respirations 18, blood pressure 138/67. Oxygen saturation on nasal cannula is 95%. HEENT: Normocephalic, atraumatic. NECK: No JVD. CARDIOVASCULAR: Systolic ejection murmur at the lower left sternal border. No S3 gallop. LUNGS: Decreased breath sounds at the bases. Very minimal/less rhonchi. No wheezing. EXTREMITIES: Mild edema. No cyanosis, no clubbing. Calves are nontender to palpation. GI: Abdomen is soft, nontender and nondistended. Bowel sounds are positive. SKIN: No acute rash. NEUROLOGIC: Limited at the present time. IMPRESSION: 1. Recurrent bronchitis. 2. Multiple left-sided rib fractures. Status post fall at home. 3. End-stage chronic obstructive pulmonary disease. 4. Left upper lobe lung mass. 5. Pulmonary hypertension. 6. Coronary artery disease. 7. Ventricular tachycardia. PLAN: The patient appears comfortable this morning. He is not short of breath at rest. He does state to feeling much better overall. I did discuss the case with the night nurse at length. There have been no signs of recurrent ventricular tachycardia. On physical exam, the patient's bronchospasm continues to resolve. In addition, there is no significant alveolar-arterial gradient. I will continue with the current nebulizer treatments and change to oral steroids this morning. The patient remains on antibiotic therapy. Rocephin was changed to cefepime yesterday. Repeat a.m. labs are pending. I did have a very long discussion with the patient's niece (Racheal) yesterday. Racheal is very well aware of the entire case, and her uncle's overall very poor status/prognosis. Racheal appears to be slowly moving to the idea of transitioning her uncle to hospice placement. Mr. Salgado (the patient) will follow whatever the niece suggests. Racheal is supposed to get back to me within the next few days regarding her final decision. The overall status/prognosis for this patient remains very poor. I will discuss the above with Dr. Fairchild this morning. Fabricio Edmond MD [facility]
[2017-10-07] MEDS: diltiaZEM 300 mg/24 Hours CD Cap PO SCH (10:30)
[2017-10-07] MEDS: Insulin Reg-MEDIUM-Coverage SC SCH ×3 (10:31→18:01)
[2017-10-07] MEDS: BOSENTAN 125 MG PO SCH ×2 (10:46→18:02)
[2017-10-07] MEDS: Cefepime 1gm in NS 100ml 1 GM/100 ML BAG IVPB SCH (13:25)
--- NOTE | 2017-10-07 15:43 | CP.PCM.PN ---
<NiniAntonion - Last Filed: 10/07/17 15:44> Subjective - Date & Time of Evaluation Date of Evaluation: 10/07/17 Time of Evaluation: 08:41 - Subjective Subjective: Patient seen and examined at bedside. Per nursing no acute events occurred overnight. The patient reports some right arm pain today. He also reports an improvement in his rib pain. He denies any chest pain, nausea, vomiting, fevers , chills, lightheadedness, or dizziness, syncopal episodes or any other complaints. Objective - Vital Signs/Intake and Output Vital Signs (last 24 hours): Temp Pulse Resp BP Pulse Ox 99.3 F 71 18 126/65 89 L 10/07/17 12:00 10/07/17 12:00 10/07/17 12:00 10/07/17 12:00 10/06/17 18:00 Intake and Output: 10/07/17 10/07/17 06:59 18:59 Intake Total 720 Output Total 650 Balance 70 - Medications Medications: Current Medications Acetaminophen (Tylenol 325mg Tab) 650 mg PO Q6H PRN PRN Reason: Pain, moderate (4-7) Last Admin: 10/07/17 06:47 Dose: 650 mg Benzocaine/Menthol (Cepacol Sore Throat) 1 padmini MT Q4H PRN PRN Reason: Sore Throat Last Admin: 10/04/17 23:20 Dose: 1 padmini Benzonatate (Tessalon Perles) 100 mg PO TID [facility] Last Admin: 10/07/17 13:25 Dose: 100 mg Budesonide (Pulmicort Respules) 0.5 mg IH [id number] [facility] Last Admin: 10/07/17 07:58 Dose: 0.5 mg Cyanocobalamin (Vitamin B12 1000 Mcg Tab) 500 mcg PO DAILY [facility] Last Admin: 10/07/17 10:20 Dose: 500 mcg Diltiazem HCl (Cardizem Cd) 300 mg PO DAILY [facility] Last Admin: 10/07/17 10:30 Dose: 300 mg Furosemide (Lasix) 40 mg PO BID [facility] Last Admin: 10/07/17 10:20 Dose: 40 mg Heparin Sodium (Porcine) (Heparin) 5,000 units SC Q12 [place] PRN Reason: Protocol Last Admin: 10/07/17 10:31 Dose: 5,000 units Home Med (Home Med) 1 unit PO BID [facility] Last Admin: 10/07/17 10:46 Dose: 1 unit Dextrose/Sodium Chloride (Dextrose 5%/0.45% Ns 1000 Ml) 1,000 mls @ 50 mls/hr IV .Q20H [facility] Last Admin: 10/07/17 06:44 Dose: 50 mls/hr Cefepime HCl (Maxipime 1gm) 1 gm in 100 mls @ 100 mls/hr IVPB Q24H [place] PRN Reason: Protocol Last Admin: 10/07/17 13:25 Dose: 100 mls/hr Insulin Human Regular (Humulin R Med) 0 units SC ACHS [facility] PRN Reason: Protocol Last Admin: 10/07/17 12:14 Dose: Not Given Levalbuterol HCl (Xopenex) 0.63 mg IH [id number] [facility] Last Admin: 10/07/17 13:39 Dose: 0.63 mg Levalbuterol HCl (Xopenex) 0.63 mg IH Q2 PRN PRN Reason: Shortness of Breath Metformin HCl (Glucophage) 500 mg PO BID [facility] Last Admin: 10/07/17 10:30 Dose: 500 mg Prednisone (Prednisone Tab) 30 mg PO DAILY [facility] Last Admin: 10/07/17 10:20 Dose: 30 mg Sitagliptin Phosphate (Januvia) 50 mg PO BID [facility] Last Admin: 10/07/17 10:30 Dose: 50 mg Tramadol HCl (Ultram) 50 mg PO Q8H PRN PRN Reason: Pain, moderate (4-7) Last Admin: 10/07/17 10:31 Dose: 50 mg - Labs Labs: 10/07/17 06:50 10/07/17 06:50 PT 11.8 SECONDS (9.4-12.5) 10/01/17 07:28 INR 1.07 (0.93-1.08) 10/01/17 07:28 APTT 27.0 Seconds (25.1-36.5) 10/01/17 07:28 - Head Exam Head Exam: ATRAUMATIC, NORMAL INSPECTION, NORMOCEPHALIC - Eye Exam Eye Exam: EOMI, Normal appearance, PERRL Pupil Exam: NORMAL ACCOMODATION, PERRL - ENT Exam ENT Exam: Mucous Membranes Moist, Normal Exam - Neck Exam Neck Exam: Normal Inspection. absent: Lymphadenopathy, Meningismus - Respiratory Exam Respiratory Exam: Clear to Ausculation Bilateral, NORMAL BREATHING PATTERN. absent: Rales, Rhonchi - Cardiovascular Exam Cardiovascular Exam: REGULAR RHYTHM, +S1, +S2 - GI/Abdominal Exam GI & Abdominal Exam: Soft, Normal Bowel Sounds - Extremities Exam Extremities Exam: absent: Pedal Edema - Back Exam Back Exam: NORMAL INSPECTION. absent: CVA tenderness (L), CVA tenderness (R), paraspinal tenderness Additional comments: rib brace on. - Neurological Exam Neurological Exam: Alert, Awake, Oriented x3 - Psychiatric Exam Psychiatric exam: Normal Affect, Normal Mood - Skin Skin Exam: Dry, Intact Assessment and Plan - Assessment and Plan (Free Text) Assessment: 72 year old male with a past medical history of COPD, CHF, hypertension, diabetes, blindness, GERD, CAD, left lung mass, psoriasis, and atrial fibrillation who presents for COPD exacerbation. Chest x-ray showed nondisplaced fracture of left 8-11 ribs. Rib support belt recommended to patient. Pt's prognosis remains poor at this time. Will taper steroids as per pulm. Pt will also have TCU evaluation. Patient overnight had a run of vtach 21 beats. TCU eval accepted and now waiting on acceptance from insurance. Plan: 1.COPD exacerbation -Continue Duonebs prn. -Taper Solumedrol to 20 mg q12h -Rocephin changed to Cefepime. Continue Azithromycin - Blood cx negative at this time - O2 as needed - Pulmonology, Dr. Edmond following 2. Rib pain -Nondisplaced frx of left 8-11 ribs -Support belt -PT eval recommended TCU. TCU eval acceptance. Pending acceptance from insurance. Will f/u with rec's 3.h/o Atrial fibrillation - continue home meds 4. DM -Janumet started. -ISS -Accuchecks ACHS 5. Pulmonary hypertension -Continue home meds 6. h/o Diastolic CHF -continue with Lasix 7. Constipation -continue with home meds 8. PPX - Protonix - SCDs <Jamie Fairchild - Last Filed: 10/07/17 16:35> Objective - Vital Signs/Intake and Output Vital Signs (last 24 hours): Temp Pulse Resp BP Pulse Ox 99.3 F 71 18 126/65 89 L 10/07/17 12:00 10/07/17 12:00 10/07/17 12:00 10/07/17 12:00 10/06/17 18:00 Intake and Output: 10/07/17 10/07/17 06:59 18:59 Intake Total 720 Output Total 650 Balance 70 - Medications Medications: Current Medications Acetaminophen (Tylenol 325mg Tab) 650 mg PO Q6H PRN PRN Reason: Pain, moderate (4-7) Last Admin: 10/07/17 06:47 Dose: 650 mg Benzocaine/Menthol (Cepacol Sore Throat) 1 padmini MT Q4H PRN PRN Reason: Sore Throat Last Admin: 10/04/17 23:20 Dose: 1 padmini Benzonatate (Tessalon Perles) 100 mg PO TID [facility] Last Admin: 10/07/17 13:25 Dose: 100 mg Budesonide (Pulmicort Respules) 0.5 mg IH [id number] [facility] Last Admin: 10/07/17 07:58 Dose: 0.5 mg Cyanocobalamin (Vitamin B12 1000 Mcg Tab) 500 mcg PO DAILY [facility] Last Admin: 10/07/17 10:20 Dose: 500 mcg Diltiazem HCl (Cardizem Cd) 300 mg PO DAILY [facility] Last Admin: 10/07/17 10:30 Dose: 300 mg Furosemide (Lasix) 40 mg PO BID [facility] Last Admin: 10/07/17 10:20 Dose: 40 mg Heparin Sodium (Porcine) (Heparin) 5,000 units SC Q12 [place] PRN Reason: Protocol Last Admin: 10/07/17 10:31 Dose: 5,000 units Home Med (Home Med) 1 unit PO BID [facility] Last Admin: 10/07/17 10:46 Dose: 1 unit Dextrose/Sodium Chloride (Dextrose 5%/0.45% Ns 1000 Ml) 1,000 mls @ 50 mls/hr IV .Q20H [facility] Last Admin: 10/07/17 06:44 Dose: 50 mls/hr Cefepime HCl (Maxipime 1gm) 1 gm in 100 mls @ 100 mls/hr IVPB Q24H [place] PRN Reason: Protocol Last Admin: 10/07/17 13:25 Dose: 100 mls/hr Insulin Human Regular (Humulin R Med) 0 units SC ACHS [facility] PRN Reason: Protocol Last Admin: 10/07/17 12:14 Dose: Not Given Levalbuterol HCl (Xopenex) 0.63 mg IH [id number] [facility] Last Admin: 10/07/17 13:39 Dose: 0.63 mg Levalbuterol HCl (Xopenex) 0.63 mg IH Q2 PRN PRN Reason: Shortness of Breath Metformin HCl (Glucophage) 500 mg PO BID [facility] Last Admin: 10/07/17 10:30 Dose: 500 mg Prednisone (Prednisone Tab) 30 mg PO DAILY [facility] Last Admin: 10/07/17 10:20 Dose: 30 mg Sitagliptin Phosphate (Januvia) 50 mg PO BID [facility] Last Admin: 10/07/17 10:30 Dose: 50 mg Tramadol HCl (Ultram) 50 mg PO Q8H PRN PRN Reason: Pain, moderate (4-7) Last Admin: 10/07/17 10:31 Dose: 50 mg - Labs Labs: 10/07/17 06:50 10/07/17 06:50 PT 11.8 SECONDS (9.4-12.5) 10/01/17 07:28 INR 1.07 (0.93-1.08) 10/01/17 07:28 APTT 27.0 Seconds (25.1-36.5) 10/01/17 07:28 Attending/Attestation - Attestation I have personally seen and examined this patient.: Yes I have fully participated in the care of the patient.: Yes I have reviewed all pertinent clinical information, including history, physical exam and plan: Yes Notes (Text): I have seen and examined patient with resident. This is a 71 year old male with past medical history of legal blindness, severe COPD (on 4L of O2 at home), pulmonary hypertension, obstructive sleep apnea, psoriasis, HTN, NIDDM and CAD ( s/p stents) and being legally blind who was brought by patients niece for COPD exacerbation and mechanical fall which resulted in multiple rib fractures on the left. Patient was switched to po prednisone today. Continue xopenex and cefepime.Patient has leukocytosis. Clinically patient appears better. Continue cardizem, bosentan and lasix. Patient is DNI DNR. Long-term prognosis is poor. Continue Support belt, analgesics including tramadol and tylenol. Discussed with the patient regarding option of intercostal nerve block however patient refused. Encourage him to use incentive spirometry. Patient reports that he still feels weak. PT recommended TCU. Patient is accepted in TCU eval however authorization pending from insurance. I had a detailed discussion with patients niece Racheal and Dr Edmond. Patient and his niece will make decision soon regarding hospice. Follow up with within 3-[address] Hale within 2-[address] Jamie Fairchild
[2017-10-07 17:54] VITALS: TEMP 98.7
[2017-10-07 17:56] VITALS: BP 126/61; RESP 20; O2SAT 99
[2017-10-07 18:38] VITALS: PULSE 74
== END 2017-10-07 19:01 | DRG 191 ==
LOC: ED 06:46 → ERH 07:51 → 3RNO 07:53 → ERH 09:08 → 3RSO 09:19 → OBSVTOIN 10-02 13:07
PROVIDERS: ADMIT Hospitalist; ATTEND Hospitalist
PROC: 3E0F7GC Introduction of Other Therapeutic Substance into Respiratory Tract, Via Natural or Artificial Opening (ICD-10-PCS; principal; 2017-10-01)
DX: J44.1 Chronic obstructive pulmonary disease with (acute) exacerbation (principal); I47.2 Ventricular tachycardia; I27.20 Pulmonary hypertension, unspecified; E11.22 Type 2 diabetes mellitus with diabetic chronic kidney disease; I50.32 Chronic diastolic (congestive) heart failure; I13.0 Hypertensive heart and chronic kidney disease with heart failure and stage 1 through stage 4 chronic kidney disease, or unspecified chronic kidney disease; S22.42XA Multiple fractures of ribs, left side, initial encounter for closed fracture; W06.XXXA Fall from bed, initial encounter; I48.91 Unspecified atrial fibrillation; D64.9 Anemia, unspecified; Z66 Do not resuscitate; H54.8 Legal blindness, as defined in USA; K21.9 Gastro-esophageal reflux disease without esophagitis; L40.9 Psoriasis, unspecified; K59.00 Constipation, unspecified; N18.9 Chronic kidney disease, unspecified; I25.10 Atherosclerotic heart disease of native coronary artery without angina pectoris; R29.6 Repeated falls; G47.33 Obstructive sleep apnea (adult) (pediatric); R09.02 Hypoxemia; R53.1 Weakness; Z99.81 Dependence on supplemental oxygen; Z79.84 Long term (current) use of oral hypoglycemic drugs; Z95.5 Presence of coronary angioplasty implant and graft; Y93.89 Activity, other specified; Y92.092 Bedroom in other non-institutional residence as the place of occurrence of the external cause; Y99.9 Unspecified external cause status; Z87.891 Personal history of nicotine dependence

== ENCOUNTER 2017-10-07 19:05 | Inpatient (IN) | payer MEDICARE, OTHER ==
--- NOTE | 2017-10-07 19:55 | CP.PCM.DIS ---
Provider - Provider Date of Admission: 10/07/17 19:05 Attending physician: Jamie Fairchild MD Primary care physician: Jose C Ambrocio MD Discharge Plan - Follow Up Plan Condition: GOOD Disposition: HOME/ ROUTINE Referrals: Jose C Ambrocio MD [Primary Care Provider] -
[2017-10-07] MEDS ORDERED: Benzocaine/Menthol (Cepacol) Lozenge MT PRN (20:12)
[2017-10-07 20:51] VITALS: BMI 25.0
[2017-10-07] MEDS ORDERED: Influenza Vaccine 60 mcg/0.5 mL SYR (4YR UP) IM ONE (20:51)
[2017-10-07] MEDS ORDERED: Pneumococcal 23-Valent Vaccine IM ONE (20:51)
[2017-10-07] MEDS: Dextrose 5%/0.45% NS 1,000 ML IV SCH (21:28)
[2017-10-07] MEDS: Insulin Reg-MEDIUM-Coverage SC SCH (22:46)
[2017-10-08] MEDS: Levalbuterol 0.63 MG/3 ML Inhal Soln UD IH SCH ×4 (01:11→20:36)
[2017-10-08] MEDS: Cefepime 1gm in NS 100ml 1 GM/100 ML BAG IVPB SCH (05:14)
[2017-10-08] MEDS ORDERED: Morphine 2 mg/ml ISec IVP STA (05:46)
[2017-10-08] MEDS: Insulin Reg-MEDIUM-Coverage SC SCH ×4 (06:30→21:40)
[2017-10-08 06:32] LABS: BASO # 0.02 K/mm3 (0.0-2.0); BASO % 0.1 % (0.0-3.0); EOS # 0.1 (0.0-0.7); EOS % 0.3 % (1.5-5.0); GRAN # 22.21 (1.4-6.5); GRAN % 85.3 % (50.0-68.0); HEMATOCRIT 36.7 % (42.0-52.0); LYMPH # 1.8 (1.2-3.4); LYMPH % 6.8 % (22.0-35.0); MEAN CELL VOLUME 85.7 fl (80.0-105.0); MEAN CORPUSCULAR HEMOGLOBIN 25.2 pg (25.0-35.0); MEAN CORPUSCULAR HGB CONC 29.4 g/dl (31.0-37.0); MEAN PLATELET VOLUME 10.3 fl (7.0-11.0); MONO % 7.5 % (1.0-6.0); RED CELL DISTRIBUTION WIDTH 16.4 % (11.5-14.5)
[2017-10-08] MEDS: Budesonide 0.5 mg/2 ml Inhal Susp UD IH SCH ×2 (07:26→20:36)
[2017-10-08 08:17] LABS: ALKALINE PHOSPHATASE 134 U/L (38-126); ALT/SGPT 95 U/L (7-56); AST/SGOT 44 U/L (17-59); BILIRUBIN,TOTAL 0.5 mg/dL (0.2-1.3); BLOOD UREA NITROGEN 25 mg/dL (7-21); CALCIUM 9.9 mg/dL (8.4-10.5); CARBON DIOXIDE 35 mmol/L (21-33); CHLORIDE 93 mmol/L (98-107); GFR AFRICAN-AMERICAN > 60; GLUCOSE,RANDOM 125 mg/dL (70-110); POTASSIUM 3.9 mmol/L (3.6-5.0); SODIUM 136 mmol/L (132-148); TOTAL PROTEIN 6.7 g/dL (5.8-8.3)
--- NOTE | 2017-10-08 08:46 | PN ---
DATE: 10/08/2017 PULMONARY NOTE SUBJECTIVE: The patient appears comfortable this morning. He is not short of breath at rest. PHYSICAL EXAMINATION: VITAL SIGNS: (Last noted in the computer): Temperature is 99.0, pulse 51, respirations 18/20, blood pressure 112/55. Oxygen saturation last measured on nasal cannula - 99%. HEENT: Normocephalic, atraumatic. NECK: No JVD. CARDIOVASCULAR: Systolic ejection murmur at the lower left sternal border. No S3 gallop. LUNGS: Decreased breath sounds at the bases. Minimal/less rhonchi. No wheezing. EXTREMITIES: Mild edema. No cyanosis, no clubbing. Calves are nontender to palpation. GI: Abdomen is soft, nontender and nondistended. Bowel sounds are positive. SKIN: No acute rash. NEUROLOGIC: Exam limited at the present time. IMPRESSION: 1. Recurrent bronchitis. 2. Multiple left-sided rib fractures. Status post fall at home. 3. End-stage chronic obstructive pulmonary disease. 4. Left upper lobe lung mass. 5. Pulmonary hypertension. 6. Coronary artery disease. 7. Ventricular tachycardia. PLAN: The patient appears comfortable this morning. He is not short of breath at rest. He does state to feeling much better overall. On physical exam, his bronchospasm is certainly less. In addition, the alveolar-arterial gradient is also less. I will continue the current nebulizer treatments and oral steroids (changed yesterday) for now. The patient remains on antibiotic therapy. Repeat a.m. labs are pending. Clinical status of the patient is certainly improved - compared to the initial presentation. However, again, the overall status/prognosis for this patient remains very poor. I have had multiple discussions with the patient and niece (power of ip technology transactions attorney)--- concerning hospice placement. They are slowly moving towards the idea, but remain ambivalent. I will continue discussions with the patient/niece. The patient is now on the Transitional Unit - where he will participate with physical therapy. I will discuss the above with Dr. Fairchild. Fabricio Edmond MD [facility]
[2017-10-08] MEDS: diltiaZEM 300 mg/24 Hours CD Cap PO SCH (10:03)
[2017-10-08] MEDS: TRACLEER 125 MG PO SCH ×2 (10:10→17:22)
[2017-10-08] MEDS: Levalbuterol 0.63 MG/3 ML Inhal Soln UD IH PRN (16:26)
--- NOTE | 2017-10-08 16:35 | CP.PCM.HP ---
<Mirza Terrazas - Last Filed: 10/08/17 16:39> History of Present Illness - History of Present Illness History of Present Illness: Patient is a 72 yo male with PMH of COPD( on 4 Liters during the day and BIPAP at night), legally blind, pulmonary HTN, diastolic CHF with preserved EF, DM, HTN, developmental delay, GERD, left lung mass, psoriasis who comes in status post fall and shortness of breath. The patient reports feeling short of breath for the past couple of days. The patient reports trying to put on his life alert from the night stand next to his bed last when he fell on the floor. The patient only reports some left sided posterior rib pain at this time. The patient also reports a productive cough(white phlegm) for the past couple of days as well. The patient denies any alleviating or modifying factors. The patient denies any chest pain, lightheadedness, dizziness, changes in vision, abdominal pain, vomiting, fevers, chills, or any other complaints. The patient was seen and evaluated by Physical therapy and subsequently was transferred to [facility] for further treatment. PMH: COPD, legally blind, pulmonary HTN, diastolic CHF with preserved EF, DM, HTN, developmental delay, GERD, left lung mass, psoriasis Surg: Hernia Repair FHx: DM1 (sister) All: NKDA SH: Prior 3 ppd smoker, quit 25 yrs ago; Denied EtOH and illicit drug use Medications: please see MAR Present on Admission - Present on Admission Any Indicators Present on Admission: No Review of Systems - Constitutional Constitutional: As Per HPI - EENT Eyes: As Per HPI Ears: As Per HPI Nose/Mouth/Throat: As Per HPI - Cardiovascular Cardiovascular: As Per HPI - Respiratory Respiratory: As Per HPI - Gastrointestinal Gastrointestinal: As Per HPI - Genitourinary Genitourinary: As Per HPI - Musculoskeletal Musculoskeletal: As Per HPI - Integumentary Integumentary: As Per HPI - Neurological Neurological: As Per HPI - Psychiatric Psychiatric: As Per HPI - Endocrine Endocrine: As Per HPI - Hematologic/Lymphatic Hematologic: As Per HPI Past Patient History - Infectious Disease Hx of Infectious Diseases: None - Tetanus Immunizations Tetanus Immunization: Up to Date - Past Social History Smoking Status: Former Smoker - CARDIAC Hx Cardiac Disorders: Yes Hx Congestive Heart Failure: Yes Hx Hypertension: Yes - PULMONARY Hx Chronic Obstructive Pulmonary Disease (COPD): Yes (end stage) - NEUROLOGICAL Hx Neurological Disorder: Yes (Blind since the age of 1.) - HEENT Hx Blind: Yes (since age 1) - RENAL Hx Renal Failure: Yes (renal failure) - ENDOCRINE/METABOLIC Hx Diabetes Mellitus Type 2: Yes - HEMATOLOGICAL/ONCOLOGICAL Hx Blood Disorders: Yes Hx Cancer: Yes (lung mass) - INTEGUMENTARY Hx Dermatological Problems: Yes (Reddened, flush skin, dry and taut. Thickened, whitish-yellowish skin patch) Hx Psoriasis: Yes Other/Comment: Generalized body surface area, including extremities and torso with reddened, flushed skin with dry, whitish-yellow, thick, scaly, flaky patches. - MUSCULOSKELETAL/RHEUMATOLOGICAL Hx Falls: Yes - GASTROINTESTINAL Hx Gastrointestinal Disorders: Yes (CONSTIPATION,HERNIORHAPPHY,GI BLEED,GERD, GASTRIC BYPASS,APPENDECTOMY) - GENITOURINARY/GYNECOLOGICAL Hx Genitourinary Disorders: Yes (UTI) Hx Reproductive Disorders: No - PSYCHIATRIC Hx Psychophysiologic Disorder: Yes Hx Substance Use: No (NONE NOTED) - SURGICAL HISTORY Hx Appendectomy: Yes - ANESTHESIA Hx Anesthesia Reactions: No Hx Malignant Hyperthermia: No Meds Allergies/Adverse Reactions: Allergies Allergy/AdvReac Type Severity Reaction Status Date / Time No Known Allergies Allergy Verified 10/07/17 19:54 Physical Exam - Head Exam Head Exam: ATRAUMATIC, NORMAL INSPECTION, NORMOCEPHALIC - Eye Exam Eye Exam: EOMI, Normal appearance, PERRL Pupil Exam: NORMAL ACCOMODATION, PERRL. absent: Irregular, Unequal - ENT Exam ENT Exam: Mucous Membranes Moist, Normal Oropharynx - Neck Exam Neck exam: Positive for: Normal Inspection - Respiratory Exam Respiratory Exam: Rhonchi, NORMAL BREATHING PATTERN - Cardiovascular Exam Cardiovascular Exam: REGULAR RHYTHM, +S1, +S2 - GI/Abdominal Exam GI & Abdominal Exam: Normal Bowel Sounds, Soft - Extremities Exam Additional comments: psoriasis present anterior shins bilaterally - Back Exam Back exam: NORMAL INSPECTION. absent: CVA tenderness (L), CVA tenderness (R), paraspinal tenderness - Neurological Exam Neurological exam: Alert, CN II-XII Intact, Oriented x3 - Psychiatric Exam Psychiatric exam: Normal Affect, Normal Mood - Skin Skin Exam: Dry, Intact, Normal Color Results - Vital Signs Recent Vital Signs: Last Vital Signs Temp 98 F 10/08/17 16:14 Pulse 75 10/08/17 10:45 Resp 20 10/08/17 16:14 BP 118/53 L 10/08/17 16:14 Pulse Ox 93 L 10/08/17 10:45 - Labs Result Diagrams: 10/08/17 05:30 10/08/17 05:30 Labs: Laboratory Results - last 24 hr 10/07/17 10/08/17 10/08/17 21:56 04:51 05:30 WBC 26.0 H* RBC 4.28 Hgb 10.8 L Hct 36.7 L MCV 85.7 MCH 25.2 MCHC 29.4 L RDW 16.4 H Plt Count 310 MPV 10.3 Gran % 85.3 H Lymph % (Auto) 6.8 L [place] % (Auto) 7.5 H Eos % (Auto) 0.3 L Baso % (Auto) 0.1 Gran # 22.21 H Lymph # 1.8 [place] # 2.0 H Eos # 0.1 Baso # 0.02 Sodium Potassium Chloride Carbon Dioxide Anion Gap BUN Creatinine Est GFR ( Amer) Est GFR (Non-Af Amer) POC Glucose (mg/dL) 110 122 H Random Glucose Calcium Total Bilirubin AST ALT Alkaline Phosphatase Total Protein Albumin Globulin Albumin/Globulin Ratio 10/08/17 05:30 WBC RBC Hgb Hct MCV MCH MCHC RDW Plt Count MPV Gran % Lymph % (Auto) [place] % (Auto) Eos % (Auto) Baso % (Auto) Gran # Lymph # [place] # Eos # Baso # Sodium 136 Potassium 3.9 Chloride 93 L Carbon Dioxide 35 H Anion Gap 11 BUN 25 H Creatinine 1.0 Est GFR ( Amer) > 60 Est GFR (Non-Af Amer) > 60 POC Glucose (mg/dL) Random Glucose 125 H Calcium 9.9 Total Bilirubin 0.5 AST 44 ALT 95 H Alkaline Phosphatase 134 H Total Protein 6.7 Albumin 3.3 Globulin 3.4 Albumin/Globulin Ratio 1.0 L Assessment & Plan - Assessment and Plan (Free Text) Assessment: 72 year old male with a past medical history of COPD, CHF, hypertension, diabetes, blindness, GERD, CAD, left lung mass, psoriasis, and atrial fibrillation who presents for COPD exacerbation. Chest x-ray showed nondisplaced fracture of left 8-11 ribs. Rib support belt recommended to patient. Pt's prognosis remains poor at this time. Will taper steroids as per pulm. Pt will also have TCU evaluation. Patient overnight had a run of vtach 21 beats. TCU eval accepted and transferred last night. Plan: 1.COPD exacerbation -Continue Duonebs prn. -Taper Solumedrol to 20 mg q12h -Continue Cefepime. - Blood cx negative = - O2 as needed -Continue incentive spirometry. - Pulmonology, Dr. Edmond following -Palliative care consulted. Rec's appreciated. 2. Rib pain -Nondisplaced frx of left 8-11 ribs -Continue Support belt -Discharged to TCU for further rehab. Patient being followed by Dr. Edmond at this time. Talks of Hospice care are in the works at this time. Will continue to follow. 3.h/o Atrial fibrillation - continue home meds 4. DM -Janumet started. -ISS -Accuchecks ACHS 5. Pulmonary hypertension -Continue home meds 6. h/o Diastolic CHF -continue with Lasix 7. Constipation -continue with home meds 8. PPX - Protonix - SCDs <Demond Ma - Last Filed: 10/09/17 17:59> Results - Vital Signs Recent Vital Signs: Last Vital Signs Temp 97.9 F 10/09/17 16:00 Pulse 43 L 10/09/17 16:00 Resp 20 10/09/17 16:00 BP 121/66 10/09/17 16:00 Pulse Ox 94 L 10/09/17 16:00 - Labs Result Diagrams: 10/08/17 05:30 10/08/17 05:30 Labs: Laboratory Results - last 24 hr 10/08/17 10/08/17 10/08/17 11:12 16:51 21:34 POC Glucose (mg/dL) 140 H 182 H 118 H 10/08/17 10/09/17 23:17 05:20 POC Glucose (mg/dL) 147 H 114 H Attending/Attestation - Attestation I have personally seen and examined this patient.: Yes I have fully participated in the care of the patient.: Yes I have reviewed all pertinent clinical information: Yes Notes (Text): COPD improved main issue is pain control currently DNR lung mass likely malignant no further workup pre patient and family request
[2017-10-08] MEDS: Dextrose 5%/0.45% NS 1,000 ML IV SCH (17:52)
[2017-10-09] MEDS: Levalbuterol 0.63 MG/3 ML Inhal Soln UD IH SCH ×4 (01:23→20:35)
[2017-10-09] MEDS: Cefepime 1gm in NS 100ml 1 GM/100 ML BAG IVPB SCH (05:02)
[2017-10-09] MEDS: Insulin Reg-MEDIUM-Coverage SC SCH ×4 (06:47→22:14)
[2017-10-09] MEDS: Budesonide 0.5 mg/2 ml Inhal Susp UD IH SCH ×2 (07:21→20:34)
--- NOTE | 2017-10-09 08:30 | PN ---
DATE: SUBJECTIVE: The patient appears comfortable this morning. He is out of bed, sitting in the chair. He is not short of breath at rest. OBJECTIVE: VITAL SIGNS: Temperature is 98.6, pulse is 62, respirations are 18, blood pressure is 112/64, and oxygen saturation on nasal cannula ranges between 90-95%. HEENT: Normocephalic, atraumatic. NECK: No JVD. CARDIOVASCULAR: Systolic ejection murmur at the lower left sternal border. No S3 gallop. LUNGS: Decreased breath sounds at the bases. Minimal/less rhonchi. No wheezing. EXTREMITIES: Mild edema. No cyanosis, no clubbing. Calves are nontender to palpation. GASTROINTESTINAL: Abdomen is soft, nontender and nondistended. Bowel sounds are positive. SKIN: No acute rash. NEUROLOGIC: Limited at the present time. IMPRESSION: 1. Recurrent bronchitis. 2. Multiple left-sided rib fractures. Status post fall at home. 3. End-stage chronic obstructive pulmonary disease. 4. Left upper lobe lung mass. 5. Pulmonary hypertension. 6. Coronary artery disease. 7. Ventricular tachycardia. PLAN: The patient appears comfortable this morning. He is not short of breath at rest. He does state to feeling much better overall. On physical exam, his bronchospasm is significantly less. I will continue the current nebulizer treatments and decrease the oral steroids this morning. The patient also remains on antibiotic therapy. The last leukocytosis(via lab work ) was improved/decreased. I would continue with the antibiotic coverage for now. Again, I have had multiple discussions with the patient and niece (power of trial attorney), in reference to transitioning the patient to hospice. Again, they are moving towards this idea, but remain ambivalent. Consultation with Cydney Wolfe (palliative care) has also been ordered. Clinical status of the patient has certainly improved - compared to the initial presentation. However, again, the overall status/prognosis for this patient remains very poor. All are aware. I will discuss the above with the attending physician. Fabricio Edmond MD [facility]
[2017-10-09] MEDS: TRACLEER 125 MG PO SCH ×2 (10:00→17:59)
[2017-10-09] MEDS: diltiaZEM 300 mg/24 Hours CD Cap PO SCH (10:01)
[2017-10-09] MEDS: Dextrose 5%/0.45% NS 1,000 ML IV SCH (12:13)
[2017-10-09 16:46] VITALS: RESP 20
[2017-10-10] MEDS: Levalbuterol 0.63 MG/3 ML Inhal Soln UD IH SCH ×4 (01:40→20:04)
[2017-10-10] MEDS: Cefepime 1gm in NS 100ml 1 GM/100 ML BAG IVPB SCH (05:34)
[2017-10-10] MEDS: Insulin Reg-MEDIUM-Coverage SC SCH ×4 (06:50→21:36)
[2017-10-10] MEDS: Budesonide 0.5 mg/2 ml Inhal Susp UD IH SCH ×2 (07:19→20:03)
[2017-10-10] MEDS: Dextrose 5%/0.45% NS 1,000 ML IV SCH (09:48)
[2017-10-10] MEDS: diltiaZEM 300 mg/24 Hours CD Cap PO SCH (09:55)
[2017-10-10] MEDS: TRACLEER 125 MG PO SCH ×2 (10:03→17:20)
--- NOTE | 2017-10-10 19:16 | CP.PCM.PN ---
<Henri Lowry - Last Filed: 10/10/17 19:11> Subjective - Date & Time of Evaluation Date of Evaluation: 10/10/17 Time of Evaluation: 19:11 - Subjective Subjective: Medicine progress note for Dr. Sudhir Estrella DO PGY - 1, pager [phone] Pt s/e bedside. No acute complaints, no changes per nursing overnight. Pt still has some right arm pain, which prevents him from laying on it. He states that his left sided rib pain is much improved. At this time he denies any cp/ sob/f/ch/n/v/d. Objective - Vital Signs/Intake and Output Vital Signs (last 24 hours): Temp Pulse Resp BP Pulse Ox 97.4 F L 43 L 20 115/53 L 96 10/10/17 10:00 10/10/17 10:00 10/10/17 10:00 10/10/17 17:21 10/10/17 10:00 - Medications Medications: Current Medications Acetaminophen (Tylenol 325mg Tab) 650 mg PO Q6H PRN; Protocol PRN Reason: Pain, moderate (4-7) Last Admin: 10/10/17 18:57 Dose: 650 mg Benzocaine/Menthol (Cepacol Sore Throat) 1 padmini MT Q4H PRN; Protocol PRN Reason: Sore Throat Benzonatate (Tessalon Perles) 100 mg PO TID [facility] PRN Reason: Protocol Last Admin: 10/10/17 17:21 Dose: 100 mg Budesonide (Pulmicort Respules) 0.5 mg IH [id number] [place] PRN Reason: Protocol Last Admin: 10/10/17 07:19 Dose: 0.5 mg Cyanocobalamin (Vitamin B12 1000 Mcg Tab) 500 mcg PO DAILY [facility] PRN Reason: Protocol Last Admin: 10/10/17 09:49 Dose: 500 mcg Diltiazem HCl (Cardizem Cd) 300 mg PO DAILY [facility] PRN Reason: Protocol Last Admin: 10/10/17 09:55 Dose: Not Given Docusate Sodium (Colace) 100 mg PO BID [facility] Last Admin: 10/10/17 18:58 Dose: 100 mg Furosemide (Lasix) 40 mg PO BID [facility] PRN Reason: Protocol Last Admin: 10/10/17 17:21 Dose: 40 mg Heparin Sodium (Porcine) (Heparin) 5,000 units SC Q12 [facility] PRN Reason: Protocol Last Admin: 10/10/17 10:01 Dose: 5,000 units Home Med (Home Med) 1 unit PO BID [facility] PRN Reason: Protocol Last Admin: 10/10/17 17:20 Dose: 1 unit Dextrose/Sodium Chloride (Dextrose 5%/0.45% Ns 1000 Ml) 1,000 mls @ 50 mls/hr IV .Q20H [place] PRN Reason: Protocol Last Admin: 10/10/17 09:48 Dose: Not Given Cefepime HCl (Maxipime 1gm) 1 gm in 100 mls @ 100 mls/hr IVPB 0600 [facility] PRN Reason: Protocol Last Admin: 10/10/17 05:34 Dose: 100 mls/hr Insulin Human Regular (Humulin R Med) 0 units SC ACHS [facility] PRN Reason: Protocol Last Admin: 10/10/17 17:19 Dose: Not Given Levalbuterol HCl (Xopenex) 0.63 mg IH Q2 PRN; Protocol PRN Reason: Shortness of Breath Last Admin: 10/08/17 16:26 Dose: 0.63 mg Levalbuterol HCl (Xopenex) 0.63 mg IH [id number] [facility] PRN Reason: Protocol Last Admin: 10/10/17 13:40 Dose: 0.63 mg Metformin HCl (Glucophage) 500 mg PO BID [facility] PRN Reason: Protocol Last Admin: 10/10/17 17:19 Dose: 500 mg Oxycodone HCl (Oxycodone Immediate Release Tab) 5 mg PO Q6H PRN PRN Reason: Pain, severe (8-10) Prednisone (Prednisone Tab) 20 mg PO DAILY [facility] Last Admin: 10/10/17 09:50 Dose: 20 mg Sitagliptin Phosphate (Januvia) 50 mg PO BID [facility] PRN Reason: Protocol Last Admin: 10/10/17 17:20 Dose: 50 mg Tramadol HCl (Ultram) 50 mg PO Q6H PRN; Protocol PRN Reason: Pain, moderate (4-7) Last Admin: 10/10/17 03:12 Dose: 50 mg - Labs Labs: 10/08/17 05:30 10/08/17 05:30 - Additional Findings Additional findings: Phys Exam: VS as below Const'l: a&o x 4, nad, with abdomen binder Head/Neck: neck supple, no jvd, trachea midline, carotid midline, no cervical /head mass Eyes: EOMI, but patient cannot see ENT: auditory acuity grossly intact, throat not congested, no nasal deformity Cardio: rrr, no m/r/g, no carotid bruit, nml s1, s2 Pulm: + diminished breath sounds bilaterally; no accessory muscle use, ctab Abd: s/nt/nd, nbs x 4 q, no palpable masses Derm: +several points of ecchymoses; no rashes, no ulcers, no lesions Extr: no edema, no cyanosis, no calf tenderness, no lesions, no varicosities Neuro: cn II-XII grossly intact, ue and le 5/5 muscle strength bilaterally, no los ue, le bilaterally and core Assessment and Plan - Assessment and Plan (Free Text) Assessment: A/P: 72 year old male with a past medical history of COPD, CHF, hypertension, diabetes, blindness, GERD, CAD, left lung mass, psoriasis, and atrial fibrillation who presents for COPD exacerbation. Chest x-ray showed nondisplaced fracture of left 8-11 ribs. Rib support belt recommended to patient. Pt's prognosis remains poor at this time. Will taper steroids as per pulm. Pt will also have TCU evaluation. Patient overnight had a run of vtach 21 beats. COPD Exacerbation - Resolved - Continue Duonebs prn - Tapering dose of steroids - Continue Cefepime, pulmicort, tessalon perles, cepacol, tylenol prn, xopenex - Continue incentive spirometry - Pulmonology, Dr. Edmond following: pt wants to run his oxycodone schedule by Dr. Jurado - Palliative care consulted. Rec's appreciated. Rib pain - Improved - Continue Support belt h/o Atrial fibrillation - Continue home meds: Diltiazem, DM - Janumet started; metformin; januvia - RISS - Accuchecks ACHS Pulmonary hypertension - Continue home meds h/o Diastolic CHF - Continue with Lasix Constipation - Continue colace PPX - Protonix - SCDs <Ovi Peguero - Last Filed: 10/10/17 20:04> Objective - Vital Signs/Intake and Output Vital Signs (last 24 hours): Temp Pulse Resp BP Pulse Ox 97.4 F L 43 L 20 115/53 L 96 10/10/17 10:00 10/10/17 10:00 10/10/17 10:00 10/10/17 17:21 10/10/17 10:00 - Medications Medications: Current Medications Acetaminophen (Tylenol 325mg Tab) 650 mg PO Q6H PRN; Protocol PRN Reason: Pain, moderate (4-7) Last Admin: 10/10/17 18:57 Dose: 650 mg Benzocaine/Menthol (Cepacol Sore Throat) 1 padmini MT Q4H PRN; Protocol PRN Reason: Sore Throat Benzonatate (Tessalon Perles) 100 mg PO TID [facility] PRN Reason: Protocol Last Admin: 10/10/17 17:21 Dose: 100 mg Budesonide (Pulmicort Respules) 0.5 mg IH [id number] [facility] PRN Reason: Protocol Last Admin: 10/10/17 07:19 Dose: 0.5 mg Cyanocobalamin (Vitamin B12 1000 Mcg Tab) 500 mcg PO DAILY [facility] PRN Reason: Protocol Last Admin: 10/10/17 09:49 Dose: 500 mcg Diltiazem HCl (Cardizem Cd) 300 mg PO DAILY [facility] PRN Reason: Protocol Last Admin: 10/10/17 09:55 Dose: Not Given Docusate Sodium (Colace) 100 mg PO BID [facility] Last Admin: 10/10/17 18:58 Dose: 100 mg Furosemide (Lasix) 40 mg PO BID [facility] PRN Reason: Protocol Last Admin: 10/10/17 17:21 Dose: 40 mg Heparin Sodium (Porcine) (Heparin) 5,000 units SC Q12 [facility] PRN Reason: Protocol Last Admin: 10/10/17 10:01 Dose: 5,000 units Home Med (Home Med) 1 unit PO BID [facility] PRN Reason: Protocol Last Admin: 10/10/17 17:20 Dose: 1 unit Dextrose/Sodium Chloride (Dextrose 5%/0.45% Ns 1000 Ml) 1,000 mls @ 50 mls/hr IV .Q20H [facility] PRN Reason: Protocol Last Admin: 10/10/17 09:48 Dose: Not Given Cefepime HCl (Maxipime 1gm) 1 gm in 100 mls @ 100 mls/hr IVPB 0600 [facility] PRN Reason: Protocol Last Admin: 10/10/17 05:34 Dose: 100 mls/hr Insulin Human Regular (Humulin R Med) 0 units SC ACHS [facility] PRN Reason: Protocol Last Admin: 10/10/17 17:19 Dose: Not Given Levalbuterol HCl (Xopenex) 0.63 mg IH Q2 PRN; Protocol PRN Reason: Shortness of Breath Last Admin: 10/08/17 16:26 Dose: 0.63 mg Levalbuterol HCl (Xopenex) 0.63 mg IH [id number] [facility] PRN Reason: Protocol Last Admin: 10/10/17 13:40 Dose: 0.63 mg Metformin HCl (Glucophage) 500 mg PO BID [facility] PRN Reason: Protocol Last Admin: 10/10/17 17:19 Dose: 500 mg Oxycodone HCl (Oxycodone Immediate Release Tab) 5 mg PO Q6H PRN PRN Reason: Pain, severe (8-10) Prednisone (Prednisone Tab) 20 mg PO DAILY [facility] Last Admin: 10/10/17 09:50 Dose: 20 mg Sitagliptin Phosphate (Januvia) 50 mg PO BID [facility] PRN Reason: Protocol Last Admin: 10/10/17 17:20 Dose: 50 mg Tramadol HCl (Ultram) 50 mg PO Q6H PRN; Protocol PRN Reason: Pain, moderate (4-7) Last Admin: 10/10/17 03:12 Dose: 50 mg - Labs Labs: 10/08/17 05:30 10/08/17 05:30 Attending/Attestation - Attestation I have personally seen and examined this patient.: Yes I have fully participated in the care of the patient.: Yes I have reviewed all pertinent clinical information, including history, physical exam and plan: Yes Notes (Text): 10/10/17 20:03 Patient seen and examined independently at bedside.vitals,labs and notes reviewed. Continue chronic medications.Pulmonary follow up appreciated. Prognosis remains guarded. Agree with the plan of care outlined by the resident.
[2017-10-11] MEDS: Levalbuterol 0.63 MG/3 ML Inhal Soln UD IH SCH ×4 (01:49→19:26)
[2017-10-11] MEDS: Cefepime 1gm in NS 100ml 1 GM/100 ML BAG IVPB SCH (05:06)
[2017-10-11] MEDS: Budesonide 0.5 mg/2 ml Inhal Susp UD IH SCH ×2 (07:13→19:26)
[2017-10-11] MEDS: Insulin Reg-MEDIUM-Coverage SC SCH ×4 (07:37→21:03)
[2017-10-11] MEDS: diltiaZEM 300 mg/24 Hours CD Cap PO SCH (10:25)
[2017-10-11] MEDS: TRACLEER 125 MG PO SCH ×2 (10:26→17:12)
[2017-10-11] MEDS: Dextrose 5%/0.45% NS 1,000 ML IV SCH ×2 (11:19→19:25)
[2017-10-11] MEDS: oxyCODONE 5 mg Immediate Release Tab PO PRN (11:27)
[2017-10-11] MEDS: DiphenhydrAMINE 12.5 mg/5 ml LIQ UD (5 ml) PO PRN (20:00)
[2017-10-12] MEDS: oxyCODONE 5 mg Immediate Release Tab PO PRN (00:33)
[2017-10-12] MEDS: Levalbuterol 0.63 MG/3 ML Inhal Soln UD IH SCH ×4 (01:17→19:23)
[2017-10-12] MEDS: Cefepime 1gm in NS 100ml 1 GM/100 ML BAG IVPB SCH (05:27)
[2017-10-12] MEDS: Budesonide 0.5 mg/2 ml Inhal Susp UD IH SCH ×2 (07:35→19:22)
[2017-10-12 08:00] LABS: BASO # 0.02 K/mm3 (0.0-2.0); BASO % 0.1 % (0.0-3.0); EOS # 0.3 (0.0-0.7); EOS % 0.9 % (1.5-5.0); GRAN # 23.05 (1.4-6.5); GRAN % 85.8 % (50.0-68.0); HEMATOCRIT 27.5 % (42.0-52.0); LYMPH % 7.5 % (22.0-35.0); MEAN CELL VOLUME 86.5 fl (80.0-105.0); MEAN CORPUSCULAR HEMOGLOBIN 25.5 pg (25.0-35.0); MEAN CORPUSCULAR HGB CONC 29.5 g/dl (31.0-37.0); MEAN PLATELET VOLUME 9.8 fl (7.0-11.0); MONO # 1.5 (0.1-0.6); MONO % 5.7 % (1.0-6.0); RED CELL DISTRIBUTION WIDTH 16.2 % (11.5-14.5)
[2017-10-12 08:02] LABS: WHITE BLOOD COUNT 26.9 10^3/ul (4.5-11.0)
[2017-10-12] MEDS: Insulin Reg-MEDIUM-Coverage SC SCH ×4 (08:19→22:12)
[2017-10-12 08:23] LABS: ALKALINE PHOSPHATASE 98 U/L (38-126); ALT/SGPT 60 U/L (7-56); AST/SGOT 22 U/L (17-59); BILIRUBIN,TOTAL 0.5 mg/dL (0.2-1.3); BLOOD UREA NITROGEN 54 mg/dL (7-21); CALCIUM 9.5 mg/dL (8.4-10.5); CARBON DIOXIDE 38 mmol/L (21-33); CHLORIDE 92 mmol/L (98-107); GFR AFRICAN-AMERICAN > 60; GLUCOSE,RANDOM 114 mg/dL (70-110); POTASSIUM 4.1 mmol/L (3.6-5.0); SODIUM 137 mmol/L (132-148)
--- NOTE | 2017-10-12 08:30 | PN ---
DATE: 10/12/2017 PULMONARY PROGRESS NOTE SUBJECTIVE: The patient appears comfortable this morning. He is not short of breath at rest. PHYSICAL EXAMINATION: VITAL SIGNS: Temperature is 99.1, pulse is 58, respirations are 18/20, and blood pressure is 100/52. Oxygen saturation on nasal cannula is between 94% to 98%. HEENT: Normocephalic and atraumatic. NECK: No JVD. CARDIOVASCULAR: Systolic ejection murmur at the lower left sternal border. No S3, gallop. LUNGS: Decreased breath sounds at the bases. Very minimal/less rhonchi. No wheezing. EXTREMITIES: Mild edema. No cyanosis and no clubbing. Calves are nontender to palpation. GASTROINTESTINAL: Abdomen is soft, nontender and nondistended. Bowel sounds are positive. SKIN: No acute rash. NEUROLOGIC: Exam is limited at the present time. IMPRESSION 1. Recurrent bronchitis. 2. Multiple left-sided rib fractures. Status post fall at home. 3. End-stage chronic obstructive pulmonary disease. 4. Left upper lobe lung mass. 5. Pulmonary hypertension. 6. Coronary artery disease. 7. Ventricular tachycardia. PLAN: The patient appears comfortable this morning. He is not short of breath at rest. He does state to feeling better overall. He does state to some nausea with eating. He is currently on Zofran p.r.n. On physical exam, his bronchospasm continues to resolve. In addition, there is no significant alveolar-arterial gradient. I will continue the current nebulizer treatments and low-dose oral steroids for now. The patient also remains on antibiotic therapy. Clinical status of the patient has improved - compared to the initial presentation. However, again, the future status/prognosis for this patient remains very poor. I will continue the discussions with the patient and niece, and hopefully move ahead with hospice placement in the near future. I will discuss the above with the attending physician this morning. Fabricio Edmond MD MTDD
[2017-10-12] MEDS: diltiaZEM 300 mg/24 Hours CD Cap PO SCH (10:36)
[2017-10-12] MEDS: TRACLEER 125 MG PO SCH ×2 (10:37→17:44)
--- NOTE | 2017-10-12 14:48 | CP.PCM.PN ---
<Mirza Terrazas - Last Filed: 10/12/17 15:55> Subjective - Date & Time of Evaluation Date of Evaluation: 10/12/17 Time of Evaluation: 14:46 - Subjective Subjective: Patient seen and examined at bedside. Per nursing no acute event's occurred overnight. The patient reports some nausea for the past couple of days. The patient denies any chest pain, fevers, chills, lightheadedness, vomiting, abdominal pain , or any other complaints. Objective - Vital Signs/Intake and Output Vital Signs (last 24 hours): Temp Pulse Resp BP Pulse Ox 98.4 F 70 20 112/61 100 10/12/17 10:01 10/12/17 10:36 10/12/17 10:01 10/12/17 10:38 10/12/17 10:01 - Medications Medications: Current Medications Acetaminophen (Tylenol 325mg Tab) 650 mg PO Q6H PRN; Protocol PRN Reason: Pain, moderate (4-7) Last Admin: 10/11/17 05:06 Dose: 650 mg Benzocaine/Menthol (Cepacol Sore Throat) 1 padmini MT Q4H PRN; Protocol PRN Reason: Sore Throat Benzonatate (Tessalon Perles) 100 mg PO TID [facility] PRN Reason: Protocol Last Admin: 10/12/17 13:38 Dose: 100 mg Budesonide (Pulmicort Respules) 0.5 mg IH [id number] [facility] PRN Reason: Protocol Last Admin: 10/12/17 07:35 Dose: 0.5 mg Cyanocobalamin (Vitamin B12 1000 Mcg Tab) 500 mcg PO DAILY [facility] PRN Reason: Protocol Last Admin: 10/12/17 10:39 Dose: 500 mcg Diltiazem HCl (Cardizem Cd) 300 mg PO DAILY [facility] PRN Reason: Protocol Last Admin: 10/12/17 10:36 Dose: 300 mg Diphenhydramine HCl (Benadryl) 25 mg PO HS PRN PRN Reason: Insomnia Last Admin: 10/11/17 20:00 Dose: 25 mg Docusate Sodium (Colace) 100 mg PO BID [facility] Last Admin: 10/12/17 10:37 Dose: 100 mg Furosemide (Lasix) 40 mg PO BID [facility] PRN Reason: Protocol Last Admin: 10/12/17 10:38 Dose: 40 mg Heparin Sodium (Porcine) (Heparin) 5,000 units SC Q12 [facility] PRN Reason: Protocol Last Admin: 10/12/17 10:38 Dose: 5,000 units Home Med (Home Med) 1 unit PO BID [facility] PRN Reason: Protocol Last Admin: 10/12/17 10:37 Dose: 1 unit Dextrose/Sodium Chloride (Dextrose 5%/0.45% Ns 1000 Ml) 1,000 mls @ 50 mls/hr IV .Q20H [facility] PRN Reason: Protocol Last Admin: 10/11/17 19:25 Dose: Not Given Cefepime HCl (Maxipime 1gm) 1 gm in 100 mls @ 100 mls/hr IVPB 0600 [facility] PRN Reason: Protocol Last Admin: 10/12/17 05:27 Dose: 100 mls/hr Insulin Human Regular (Humulin R Med) 0 units SC ACHS [facility] PRN Reason: Protocol Last Admin: 10/12/17 11:54 Dose: Not Given Levalbuterol HCl (Xopenex) 0.63 mg IH Q2 PRN; Protocol PRN Reason: Shortness of Breath Last Admin: 10/08/17 16:26 Dose: 0.63 mg Levalbuterol HCl (Xopenex) 0.63 mg IH [id number] [facility] PRN Reason: Protocol Last Admin: 10/12/17 13:34 Dose: Not Given Metformin HCl (Glucophage) 500 mg PO BID [facility] PRN Reason: Protocol Last Admin: 10/12/17 10:38 Dose: 500 mg Ondansetron HCl (Zofran Inj) 4 mg IVP Q4H PRN PRN Reason: Nausea/Vomiting Last Admin: 10/11/17 17:53 Dose: 4 mg Pantoprazole Sodium (Protonix Inj) 40 mg IVP DAILY [facility] Prednisone (Prednisone Tab) 20 mg PO DAILY [facility] Last Admin: 10/12/17 10:39 Dose: 20 mg Sitagliptin Phosphate (Januvia) 50 mg PO BID [facility] PRN Reason: Protocol Last Admin: 10/12/17 10:37 Dose: 50 mg Tramadol HCl (Ultram) 50 mg PO Q6H PRN; Protocol PRN Reason: Pain, moderate (4-7) Last Admin: 10/12/17 12:04 Dose: 50 mg - Labs Labs: 10/12/17 07:45 10/12/17 07:45 - Head Exam Head Exam: ATRAUMATIC, NORMAL INSPECTION, NORMOCEPHALIC - Eye Exam Eye Exam: EOMI, Normal appearance, PERRL. absent: Periorbital tenderness Pupil Exam: NORMAL ACCOMODATION, PERRL - ENT Exam ENT Exam: Mucous Membranes Moist, Normal Exam, Normal Oropharynx - Neck Exam Neck Exam: Normal Inspection. absent: Lymphadenopathy, Meningismus - Respiratory Exam Respiratory Exam: Clear to Ausculation Bilateral, NORMAL BREATHING PATTERN. absent: Prolonged Expiratory Phase, Rales, Rhonchi - Cardiovascular Exam Cardiovascular Exam: REGULAR RHYTHM, RRR, +S1, +S2. absent: Gallop, Rubs - GI/Abdominal Exam GI & Abdominal Exam: Soft, Normal Bowel Sounds. absent: Rigid, Hyperactive Bowel Sounds - Back Exam Back Exam: NORMAL INSPECTION. absent: CVA tenderness (L), CVA tenderness (R), paraspinal tenderness - Neurological Exam Neurological Exam: Alert, Awake, Oriented x3 - Psychiatric Exam Psychiatric exam: Normal Affect, Normal Mood. absent: Anxious, Depressed - Skin Skin Exam: Dry, Intact Assessment and Plan - Assessment and Plan (Free Text) Assessment: 72 year old male with a past medical history of COPD, CHF, hypertension, diabetes, blindness, GERD, CAD, left lung mass, psoriasis, and atrial fibrillation who presents for COPD exacerbation. Chest x-ray showed nondisplaced fracture of left 8-11 ribs. Rib support belt recommended to patient. Pt's prognosis remains poor at this time. Will taper steroids as per pulm. Pt will also have TCU evaluation. Patient overnight had a run of vtach 21 beats. Plan: 1.COPD exacerbation -Continue Duonebs prn. -Continue Tapering Solumedrol per I.D. -Continue Cefepime per - Blood cx negative = - O2 as needed -Continue incentive spirometry. -Pulmonology, Dr. Edmond following -Palliative care consulted. Following. 2. Rib pain -Nondisplaced frx of left 8-11 ribs -Continue Support belt -Discharged to TCU for further rehab. Patient being followed by Dr. Edmond at this time. Talks of Hospice care are in the works at this time. Will continue to follow. 3.h/o Atrial fibrillation - continue home meds 4. DM -Janumet started. -ISS -Accuchecks ACHS 5. Pulmonary hypertension -Continue home meds 6. h/o Diastolic CHF -continue with Lasix 7. Constipation -continue with home meds 8. PPX - Protonix - SCDs <Jamie Fairchild B - Last Filed: 10/13/17 17:45> Objective - Vital Signs/Intake and Output Vital Signs (last 24 hours): Temp Pulse Resp BP Pulse Ox 98.2 F 64 20 94/46 L 95 10/13/17 17:33 10/13/17 17:33 10/13/17 17:33 10/13/17 17:33 10/13/17 17:33 - Medications Medications: Current Medications Acetaminophen (Tylenol 325mg Tab) 650 mg PO Q6H PRN; Protocol PRN Reason: Pain, moderate (4-7) Last Admin: 10/13/17 12:38 Dose: 650 mg Benzocaine/Menthol (Cepacol Sore Throat) 1 padmini MT Q4H PRN; Protocol PRN Reason: Sore Throat Benzonatate (Tessalon Perles) 100 mg PO TID [facility] PRN Reason: Protocol Last Admin: 10/13/17 17:13 Dose: Not Given Budesonide (Pulmicort Respules) 0.5 mg IH [id number] [facility] PRN Reason: Protocol Last Admin: 10/13/17 07:25 Dose: 0.5 mg Cyanocobalamin (Vitamin B12 1000 Mcg Tab) 500 mcg PO DAILY [facility] PRN Reason: Protocol Last Admin: 10/13/17 10:52 Dose: 500 mcg Diltiazem HCl (Cardizem Cd) 300 mg PO DAILY [facility] PRN Reason: Protocol Last Admin: 10/13/17 10:00 Dose: Not Given Diphenhydramine HCl (Benadryl) 25 mg PO HS PRN PRN Reason: Insomnia Last Admin: 10/12/17 21:31 Dose: 25 mg Docusate Sodium (Colace) 100 mg PO BID [facility] Last Admin: 10/13/17 17:12 Dose: 100 mg Furosemide (Lasix) 40 mg PO BID [facility] PRN Reason: Protocol Last Admin: 10/13/17 17:13 Dose: Not Given Heparin Sodium (Porcine) (Heparin) 5,000 units SC Q12 [facility] PRN Reason: Protocol Last Admin: 10/13/17 10:49 Dose: 5,000 units Home Med (Home Med) 1 unit PO BID [facility] PRN Reason: Protocol Last Admin: 10/13/17 17:13 Dose: 1 unit Dextrose/Sodium Chloride (Dextrose 5%/0.45% Ns 1000 Ml) 1,000 mls @ 50 mls/hr IV .Q20H [facility] PRN Reason: Protocol Last Admin: 10/12/17 22:18 Dose: 50 mls/hr Cefepime HCl (Maxipime 1gm) 1 gm in 100 mls @ 100 mls/hr IVPB 0600 [facility] PRN Reason: Protocol Last Admin: 10/13/17 05:26 Dose: 100 mls/hr Insulin Human Regular (Humulin R Med) 0 units SC ACHS [facility] PRN Reason: Protocol Last Admin: 10/13/17 17:11 Dose: 1 units Levalbuterol HCl (Xopenex) 0.63 mg IH Q2 PRN; Protocol PRN Reason: Shortness of Breath Last Admin: 10/08/17 16:26 Dose: 0.63 mg Levalbuterol HCl (Xopenex) 0.63 mg IH [id number] [facility] PRN Reason: Protocol Last Admin: 10/13/17 13:07 Dose: Not Given Metformin HCl (Glucophage) 500 mg PO BID [facility] PRN Reason: Protocol Last Admin: 10/13/17 17:12 Dose: 500 mg Ondansetron HCl (Zofran Inj) 4 mg IVP Q4H PRN PRN Reason: Nausea/Vomiting Last Admin: 10/11/17 17:53 Dose: 4 mg Pantoprazole Sodium (Protonix Inj) 40 mg IVP DAILY [facility] Last Admin: 10/13/17 10:50 Dose: 40 mg Prednisone (Prednisone Tab) 20 mg PO DAILY [facility] Last Admin: 10/13/17 10:50 Dose: 20 mg Sitagliptin Phosphate (Januvia) 50 mg PO BID [facility] PRN Reason: Protocol Last Admin: 10/13/17 17:12 Dose: 50 mg Tramadol HCl (Ultram) 50 mg PO Q6H PRN; Protocol PRN Reason: Pain, moderate (4-7) Last Admin: 10/13/17 04:09 Dose: 50 mg - Labs Labs: 10/12/17 07:45 10/12/17 07:45 Attending/Attestation - Attestation I have personally seen and examined this patient.: Yes I have fully participated in the care of the patient.: Yes I have reviewed all pertinent clinical information, including history, physical exam and plan: Yes Notes (Text): I have seen and examined patient with resident. This is a 71 year old male with past medical history of legal blindness, severe COPD (on 4L of O2 at home), pulmonary hypertension, obstructive sleep apnea, psoriasis, HTN, NIDDM and CAD ( s/p stents) and being legally blind who was brought by patients niece for COPD exacerbation and mechanical fall which resulted in multiple rib fractures on the left. Continue xopenex, tapering dose of prednisone and cefepime. Patient has leukocytosis. Clinically patient appears better. Continue cardizem, bosentan and lasix. Patient is DNI DNR. Long-term prognosis is poor. Continue Support belt, analgesics. Encourage him to use incentive spirometry. Patient reports that he still feels weak. Decision regarding hospice is still pending. Follow up with within 3-[address] Hale within 2-[address] Jamie Fairchild
[2017-10-12] MEDS: DiphenhydrAMINE 12.5 mg/5 ml LIQ UD (5 ml) PO PRN (21:31)
[2017-10-12] MEDS: Dextrose 5%/0.45% NS 1,000 ML IV SCH (22:18)
[2017-10-13] MEDS: Levalbuterol 0.63 MG/3 ML Inhal Soln UD IH SCH ×4 (01:05→20:43)
[2017-10-13] MEDS: Cefepime 1gm in NS 100ml 1 GM/100 ML BAG IVPB SCH (05:26)
[2017-10-13] MEDS: Insulin Reg-MEDIUM-Coverage SC SCH ×4 (06:29→22:35)
[2017-10-13] MEDS: Budesonide 0.5 mg/2 ml Inhal Susp UD IH SCH ×2 (07:25→20:43)
--- NOTE | 2017-10-13 08:09 | PN ---
DATE: 10/13/2017 PULMONARY PROGRESS NOTE SUBJECTIVE: The patient appears comfortable this morning. He is not short of breath at rest. PHYSICAL EXAMINATION: VITAL SIGNS: (Last noted in the computer): Temperature is 98.4, pulse is 70, respirations are 18/20, and blood pressure is 112/61. Oxygen saturation on nasal cannula is 100%. HEENT: Normocephalic and atraumatic. NECK: No JVD. CARDIOVASCULAR: Systolic ejection murmur at the lower left sternal border. No S3, gallop. LUNGS: Decreased breath sounds at the bases. Very minimal rhonchi. No wheezing. EXTREMITIES: Mild edema. No cyanosis and no clubbing. Calves are nontender to palpation. GASTROINTESTINAL: Abdomen is soft, nontender and nondistended. Bowel sounds are positive. SKIN: No acute rash. NEUROLOGIC: Exam limited at the present time. IMPRESSION 1. Recurrent bronchitis. 2. Multiple left-sided rib fractures. Status post fall at home. 3. End-stage chronic obstructive pulmonary disease. 4. Left upper lobe lung mass. 5. Pulmonary hypertension. 6. Coronary artery disease. 7. Ventricular tachycardia. PLAN: The patient appears comfortable this morning. He is not short of breath at rest. He does state to feeling much better overall. He does not complain of any nausea this morning. On physical exam, there is only minimal bronchospasm noted. In addition, the oxygen saturation on nasal cannula is now 100%. I will continue the current nebulizer treatments and low-dose oral steroids for now. The patient remains on antibiotic therapy. There are no temperatures noted. The leukocytosis is less pronounced - compared to a few days ago. The clinical status of this the patient has certainly improved - while in the hospital. However, again, the future status/prognosis for this patient remains very poor. There are ongoing discussions regarding hospice placement. I will discuss the above with Dr. Fairchild. Fabricio Edmond MD cc: MTDD
[2017-10-13] MEDS: diltiaZEM 300 mg/24 Hours CD Cap PO SCH (10:00)
[2017-10-13] MEDS: TRACLEER 125 MG PO SCH ×2 (10:52→17:13)
--- NOTE | 2017-10-13 11:14 | CP.PCM.CON ---
History of Present Illness - History of Present Illness History of Present Illness: Palliative consult requested Reason: Goals of care/hospice discussion 72 year old male with history of end stage COPD, CHF, DM and CKD who was recently admitted to acute care setting with pneumonia and COPD exacerbation. He has since been transitioned to [facility] for deconditioning and completion of antibiotic therapy. PMHX:end stage COPD, BIPAP at night, pulmonary HTN, CHF, fall, left lower rib fractures, pneumonia, PVD,DM, blindness,CKD,anemia Family History: Sister -DM, otherwise non contributory Social History: Former smoker, no alcohol or drug use. Lives with his niece Racheal. Advance Care Planning: The patient has an Advanced Directive and is DNR/DNI. His niece Racheal Vitale ins his health care surrogate. Review of Systems - Review of Systems All systems: reviewed and no additional remarkable complaints except - EENT Eyes: Loss of Vision Ears: Decreased Hearing - Cardiovascular Cardiovascular: Leg Edema - Respiratory Respiratory: Cough, Dyspnea on Exertion - Gastrointestinal Gastrointestinal: Constipation - Musculoskeletal Additional comments: L rib cage pain s/p rib fracture - Integumentary Integumentary: Rash Additional comments: sin flaking Past Patient History - Infectious Disease Hx of Infectious Diseases: None - Tetanus Immunizations Tetanus Immunization: Up to Date - Past Social History Smoking Status: Former Smoker - CARDIAC Hx Cardiac Disorders: Yes (Afib, CAD, stents) Hx Congestive Heart Failure: Yes Hx Hypertension: Yes - PULMONARY Hx Chronic Obstructive Pulmonary Disease (COPD): Yes (end stage) - NEUROLOGICAL Hx Neurological Disorder: Yes (Blind since the age of 1.) - HEENT Hx Blind: Yes (since age 1) - RENAL Hx Renal Failure: Yes - ENDOCRINE/METABOLIC Hx Diabetes Mellitus Type 2: Yes - HEMATOLOGICAL/ONCOLOGICAL Hx Blood Disorders: Yes Hx Cancer: Yes (lung mass) - INTEGUMENTARY Hx Dermatological Problems: Yes (Reddened, flush skin, dry and taut. Thickened, whitish-yellowish skin patch) Hx Psoriasis: Yes Other/Comment: Generalized body surface area, including extremities and torso with reddened, flushed skin with dry, whitish-yellow, thick, scaly, flaky patches. - MUSCULOSKELETAL/RHEUMATOLOGICAL Hx Falls: Yes - GASTROINTESTINAL Hx Gastrointestinal Disorders: Yes (CONSTIPATION,HERNIORHAPPHY,GI BLEED,GERD, GASTRIC BYPASS,APPENDECTOMY) - GENITOURINARY/GYNECOLOGICAL Hx Genitourinary Disorders: Yes (UTI) Hx Reproductive Disorders: No - PSYCHIATRIC Hx Psychophysiologic Disorder: Yes Hx Substance Use: No (NONE NOTED) - SURGICAL HISTORY Hx Appendectomy: Yes - ANESTHESIA Hx Anesthesia Reactions: No Hx Malignant Hyperthermia: No Meds Allergies/Adverse Reactions: Allergies Allergy/AdvReac Type Severity Reaction Status Date / Time No Known Allergies Allergy Verified 10/07/17 19:54 - Medications Medications: Current Medications Acetaminophen (Tylenol 325mg Tab) 650 mg PO Q6H PRN; Protocol PRN Reason: Pain, moderate (4-7) Last Admin: 10/13/17 06:36 Dose: 650 mg Benzocaine/Menthol (Cepacol Sore Throat) 1 padmini MT Q4H PRN; Protocol PRN Reason: Sore Throat Benzonatate (Tessalon Perles) 100 mg PO TID [place] PRN Reason: Protocol Last Admin: 10/13/17 10:51 Dose: 100 mg Budesonide (Pulmicort Respules) 0.5 mg IH [id number] [place] PRN Reason: Protocol Last Admin: 10/13/17 07:25 Dose: 0.5 mg Cyanocobalamin (Vitamin B12 1000 Mcg Tab) 500 mcg PO DAILY [place] PRN Reason: Protocol Last Admin: 10/13/17 10:52 Dose: 500 mcg Diltiazem HCl (Cardizem Cd) 300 mg PO DAILY [place] PRN Reason: Protocol Last Admin: 10/13/17 10:00 Dose: Not Given Diphenhydramine HCl (Benadryl) 25 mg PO HS PRN PRN Reason: Insomnia Last Admin: 10/12/17 21:31 Dose: 25 mg Docusate Sodium (Colace) 100 mg PO BID [place] Last Admin: 10/13/17 10:53 Dose: 100 mg Furosemide (Lasix) 40 mg PO BID [place] PRN Reason: Protocol Last Admin: 10/13/17 10:50 Dose: 40 mg Heparin Sodium (Porcine) (Heparin) 5,000 units SC Q12 [place] PRN Reason: Protocol Last Admin: 10/13/17 10:49 Dose: 5,000 units Home Med (Home Med) 1 unit PO BID [place] PRN Reason: Protocol Last Admin: 10/13/17 10:52 Dose: 1 unit Dextrose/Sodium Chloride (Dextrose 5%/0.45% Ns 1000 Ml) 1,000 mls @ 50 mls/hr IV .Q20H [place] PRN Reason: Protocol Last Admin: 10/12/17 22:18 Dose: 50 mls/hr Cefepime HCl (Maxipime 1gm) 1 gm in 100 mls @ 100 mls/hr IVPB 0600 [place] PRN Reason: Protocol Last Admin: 10/13/17 05:26 Dose: 100 mls/hr Insulin Human Regular (Humulin R Med) 0 units SC ACHS [place] PRN Reason: Protocol Last Admin: 10/13/17 06:29 Dose: Not Given Levalbuterol HCl (Xopenex) 0.63 mg IH Q2 PRN; Protocol PRN Reason: Shortness of Breath Last Admin: 10/08/17 16:26 Dose: 0.63 mg Levalbuterol HCl (Xopenex) 0.63 mg IH [id number] [place] PRN Reason: Protocol Last Admin: 10/13/17 07:25 Dose: 0.63 mg Metformin HCl (Glucophage) 500 mg PO BID [facility] PRN Reason: Protocol Last Admin: 10/13/17 10:52 Dose: 500 mg Ondansetron HCl (Zofran Inj) 4 mg IVP Q4H PRN PRN Reason: Nausea/Vomiting Last Admin: 10/11/17 17:53 Dose: 4 mg Pantoprazole Sodium (Protonix Inj) 40 mg IVP DAILY [facility] Last Admin: 10/13/17 10:50 Dose: 40 mg Prednisone (Prednisone Tab) 20 mg PO DAILY [facility] Last Admin: 10/13/17 10:50 Dose: 20 mg Sitagliptin Phosphate (Januvia) 50 mg PO BID [facility] PRN Reason: Protocol Last Admin: 10/13/17 10:52 Dose: 50 mg Tramadol HCl (Ultram) 50 mg PO Q6H PRN; Protocol PRN Reason: Pain, moderate (4-7) Last Admin: 10/13/17 04:09 Dose: 50 mg Results - Vital Signs Recent Vital Signs: Last Vital Signs Temp 98.4 F 10/12/17 10:01 Pulse 70 10/12/17 10:36 Resp 20 10/12/17 10:01 BP 105/60 10/13/17 10:50 Pulse Ox 100 10/12/17 10:01 - Labs Result Diagrams: 10/12/17 07:45 10/12/17 07:45 Labs: Laboratory Results - last 24 hr 10/12/17 10/12/17 10/12/17 06:06 11:17 17:24 POC Glucose (mg/dL) 100 133 H 185 H 10/12/17 10/13/17 21:43 05:38 POC Glucose (mg/dL) 116 H 150 H Assessment & Plan - Assessment and Plan (Free Text) Assessment: 72 year old male with multiple comorbidities(see PMH) who is seen in [facility] for completion of antibiotic therapy and deconditioning. The patient is known to me from multiple previous admissions. Hospice has been discussed in the past but neither Mr. Salgado or his niece felt ready to transition to this phase of care. This morning the patient made statement to nurses that he tired of fighting and was considering hospice care. Ruchi WELSH and I met with the patient but he denied making this statement. Mr Salgado and stated that he does not want to make any decision regarding his care. He asked that we speak with his niece Racheal. We agreed to meet with niece in his presence so that we can discuss future goals of care and discharge plan. Plan: Will assist in establishing future goals of care. Palliative support
[2017-10-13 11:27] VITALS: O2SAT 95
[2017-10-13] MEDS: Dextrose 5%/0.45% NS 1,000 ML IV SCH (17:45)
[2017-10-14] MEDS: Levalbuterol 0.63 MG/3 ML Inhal Soln UD IH SCH ×4 (02:00→20:40)
[2017-10-14] MEDS: Cefepime 1gm in NS 100ml 1 GM/100 ML BAG IVPB SCH (05:00)
[2017-10-14] MEDS: Budesonide 0.5 mg/2 ml Inhal Susp UD IH SCH ×2 (07:14→20:40)
[2017-10-14 07:41] LABS: BASO # 0.02 K/mm3 (0.0-2.0); BASO % 0.1 % (0.0-3.0); EOS # 0.2 (0.0-0.7); EOS % 0.6 % (1.5-5.0); GRAN # 21.09 (1.4-6.5); GRAN % 87.9 % (50.0-68.0); LYMPH # 1.4 (1.2-3.4); LYMPH % 5.6 % (22.0-35.0); MEAN CELL VOLUME 86.1 fl (80.0-105.0); MEAN CORPUSCULAR HEMOGLOBIN 26.1 pg (25.0-35.0); MEAN CORPUSCULAR HGB CONC 30.3 g/dl (31.0-37.0); MEAN PLATELET VOLUME 9.8 fl (7.0-11.0); MONO # 1.4 (0.1-0.6); MONO % 5.8 % (1.0-6.0); RED CELL DISTRIBUTION WIDTH 17.1 % (11.5-14.5)
[2017-10-14 07:47] LABS: HEMATOCRIT 19.8 % (42.0-52.0)
[2017-10-14 08:01] LABS: RETIC% 4.84 % (0.5-1.5)
[2017-10-14] MEDS ORDERED: Sodium Chloride 0.9% 500 ML IV STA (08:01)
[2017-10-14 08:07] LABS: ALB/GLOB RATIO 1.1 (1.1-1.8); ALKALINE PHOSPHATASE 91 U/L (38-126); ALT/SGPT 48 U/L (7-56); AST/SGOT 28 U/L (17-59); BILIRUBIN,TOTAL 0.4 mg/dL (0.2-1.3); BLOOD UREA NITROGEN 53 mg/dL (7-21); CALCIUM 9.4 mg/dL (8.4-10.5); CARBON DIOXIDE 39 mmol/L (21-33); CHLORIDE 93 mmol/L (98-107); GFR AFRICAN-AMERICAN > 60; GLUCOSE,RANDOM 123 mg/dL (70-110); POTASSIUM 3.8 mmol/L (3.6-5.0); SODIUM 136 mmol/L (132-148); TOTAL PROTEIN 5.8 g/dL (5.8-8.3)
[2017-10-14] MEDS: Insulin Reg-MEDIUM-Coverage SC SCH ×4 (08:30→22:34)
--- NOTE | 2017-10-14 08:53 | PN ---
DATE: PULMONARY PROGRESS NOTE SUBJECTIVE: The patient appears comfortable this morning. He is not short of breath at rest. He is out of bed, sitting in the chair. OBJECTIVE: VITAL SIGNS: (Last noted in the computer): Temperature is 98.2, pulse is 64, respirations are 18/20, and blood pressure is 94/46. Oxygen saturation on nasal cannula is 95%. HEENT: Normocephalic, atraumatic. NECK: No JVD. CARDIOVASCULAR: Systolic ejection murmur at the lower left sternal border. No S3 gallop. LUNGS: Decreased breath sounds at the bases. Very minimal rhonchi. No wheezing. EXTREMITIES: Mild edema. No cyanosis, no clubbing. Calves are nontender to palpation. GASTROINTESTINAL: Abdomen is soft, nontender, and nondistended. Bowel sounds are positive. SKIN: No acute rash. NEUROLOGIC: Limited at the present time. IMPRESSION: 1. Recurrent bronchitis. 2. Multiple left-sided rib fractures. Status post fall at home. 3. End-stage chronic obstructive pulmonary disease. 4. Left upper lobe lung mass. 5. Pulmonary hypertension. 6. Coronary artery disease. 7. Ventricular tachycardia. 8. Anemia. PLAN: The patient appears comfortable this morning. He is not short of breath at rest. He does state to feeling much better overall. On physical exam, there is only minimal bronchospasm noted. In addition, there is no significant alveolar-arterial gradient. I will continue the current nebulizer treatments and low-dose oral steroids for now. The patient is now off antibiotic therapy. There are no temperatures noted. His leukocytosis is resolving. However, there is a significant anemia noted(on today 's labs). Will discuss with the medical team, and start GI evaluation. The patient's clinical status is improved - compared to the initial presentation. However, again, the overall status/prognosis for this patient remains very poor. All are aware. Input by Cydney Wolfe (palliative care) is noted. The patient is highly considering hospice placement. I will also discuss the above with the niece (Racheal). I will also discuss the above with Dr. Fairchild later this morning. Fabricio Edmond MD [facility] # [id number] MARINO
[2017-10-14 08:56] LABS: BASO # 0.03 K/mm3 (0.0-2.0); BASO % 0.1 % (0.0-3.0); EOS # 0.2 (0.0-0.7); EOS % 0.6 % (1.5-5.0); GRAN # 24.44 (1.4-6.5); GRAN % 86.1 % (50.0-68.0); LYMPH # 2.1 (1.2-3.4); LYMPH % 7.4 % (22.0-35.0); MEAN CELL VOLUME 87.1 fl (80.0-105.0); MEAN CORPUSCULAR HEMOGLOBIN 26.3 pg (25.0-35.0); MEAN CORPUSCULAR HGB CONC 30.1 g/dl (31.0-37.0); MEAN PLATELET VOLUME 10.1 fl (7.0-11.0); MONO # 1.7 (0.1-0.6); MONO % 5.8 % (1.0-6.0); RED CELL DISTRIBUTION WIDTH 17.1 % (11.5-14.5)
[2017-10-14 09:00] LABS: HEMATOCRIT 20.9 % (42.0-52.0); WHITE BLOOD COUNT 28.4 10^3/ul (4.5-11.0)
--- NOTE | 2017-10-14 12:29 | CP.PCM.PN ---
Subjective - Date & Time of Evaluation Date of Evaluation: 10/14/17 Time of Evaluation: 10:00 - Subjective Subjective: Lethargic, offers no complaints Objective - Vital Signs/Intake and Output Vital Signs (last 24 hours): Temp Pulse Resp BP Pulse Ox 98.2 F 64 20 94/46 L 95 10/13/17 17:33 10/13/17 17:33 10/13/17 17:33 10/13/17 17:33 10/13/17 17:33 - Medications Medications: Current Medications Acetaminophen (Tylenol 325mg Tab) 650 mg PO Q6H PRN; Protocol PRN Reason: Pain, moderate (4-7) Last Admin: 10/14/17 04:58 Dose: 650 mg Benzocaine/Menthol (Cepacol Sore Throat) 1 padmini MT Q4H PRN; Protocol PRN Reason: Sore Throat Benzonatate (Tessalon Perles) 100 mg PO TID [place] PRN Reason: Protocol Last Admin: 10/14/17 09:14 Dose: 100 mg Budesonide (Pulmicort Respules) 0.5 mg IH [id number] [place] PRN Reason: Protocol Last Admin: 10/14/17 07:14 Dose: 0.5 mg Cyanocobalamin (Vitamin B12 1000 Mcg Tab) 500 mcg PO DAILY [facility] PRN Reason: Protocol Last Admin: 10/14/17 09:14 Dose: 500 mcg Diltiazem HCl (Cardizem Cd) 300 mg PO DAILY [place] PRN Reason: Protocol Last Admin: 10/13/17 10:00 Dose: Not Given Diphenhydramine HCl (Benadryl) 25 mg PO HS PRN PRN Reason: Insomnia Last Admin: 10/12/17 21:31 Dose: 25 mg Docusate Sodium (Colace) 100 mg PO BID [place] Last Admin: 10/14/17 09:27 Dose: Not Given Furosemide (Lasix) 40 mg PO BID [place] PRN Reason: Protocol Last Admin: 10/13/17 17:13 Dose: Not Given Home Med (Home Med) 1 unit PO BID [place] PRN Reason: Protocol Last Admin: 10/13/17 17:13 Dose: 1 unit Insulin Human Regular (Humulin R Med) 0 units SC ACHS [place] PRN Reason: Protocol Last Admin: 10/14/17 08:30 Dose: Not Given Levalbuterol HCl (Xopenex) 0.63 mg IH Q2 PRN; Protocol PRN Reason: Shortness of Breath Last Admin: 10/08/17 16:26 Dose: 0.63 mg Levalbuterol HCl (Xopenex) 0.63 mg IH [id number] [place] PRN Reason: Protocol Last Admin: 10/14/17 07:14 Dose: 0.63 mg Metformin HCl (Glucophage) 500 mg PO BID [place] PRN Reason: Protocol Last Admin: 10/14/17 09:12 Dose: Not Given Ondansetron HCl (Zofran Inj) 4 mg IVP Q4H PRN PRN Reason: Nausea/Vomiting Last Admin: 10/11/17 17:53 Dose: 4 mg Pantoprazole Sodium (Protonix Inj) 40 mg IVP Q12 [place] Last Admin: 10/14/17 09:14 Dose: 40 mg Prednisone (Prednisone Tab) 20 mg PO DAILY [facility] Last Admin: 10/14/17 09:13 Dose: 20 mg Sitagliptin Phosphate (Januvia) 50 mg PO BID [place] PRN Reason: Protocol Last Admin: 10/14/17 09:13 Dose: Not Given Tramadol HCl (Ultram) 50 mg PO Q6H PRN; Protocol PRN Reason: Pain, moderate (4-7) Last Admin: 10/14/17 09:30 Dose: 50 mg - Labs Labs: 10/14/17 08:45 10/14/17 07:10 - Constitutional Appears: Chronically Ill - Eye Exam Pupil Exam: NORMAL ACCOMODATION - ENT Exam ENT Exam: Mucous Membranes Moist - Respiratory Exam Respiratory Exam: Decreased Breath Sounds, Wheezes Additional comments: dyspnea on exertion - Cardiovascular Exam Cardiovascular Exam: +S1, +S2, Murmur - GI/Abdominal Exam GI & Abdominal Exam: Soft, Normal Bowel Sounds - Extremities Exam Additional comments: lower extremities edematous, vascular changes, flaking skin - Back Exam Back Exam: NORMAL INSPECTION - Neurological Exam Neurological Exam: Alert, Oriented x3 - Skin Skin Exam: Dry, Pallor Assessment and Plan - Assessment and Plan (Free Text) Assessment: 72 year old male admitted with CHF, s/p N STEMI, rib fractures, pneumonia, anemia, deconditioning. Patient is lethargic,somewhat weaker than yesterday. He has expressed interest in hospice services. SW,T. Dr. Janelle White and I met with Racheal Vitale to discuss hospice services. Hospice care explained in detail. Questions answered. Family has agreed to home hospice services. Family to meet with [facility] liaison tomorrow. Plan: Hospice evaluation
--- NOTE | 2017-10-14 12:53 | CP.PCM.PN ---
<Mirza Terrazas - Last Filed: 10/14/17 16:06> Subjective - Date & Time of Evaluation Date of Evaluation: 10/14/17 Time of Evaluation: 07:50 - Subjective Subjective: Patient seen and examined at bedside. Per nursing no acute events occurred overnight. The patient does reports some nausea today and rib pain. The patient denies any chest pain, lightheadedness, dizziness, fevers, chills, syncopal episodes, abdominal pain, or any other complaints. Objective - Vital Signs/Intake and Output Vital Signs (last 24 hours): Temp Pulse Resp BP Pulse Ox 98.2 F 64 20 94/46 L 95 10/13/17 17:33 12 17:33 10/13/17 17:33 10/13/17 17:33 10/13/17 17:33 - Medications Medications: Current Medications Acetaminophen (Tylenol 325mg Tab) 650 mg PO Q6H PRN; Protocol PRN Reason: Pain, moderate (4-7) Last Admin: 10/14/17 04:58 Dose: 650 mg Benzocaine/Menthol (Cepacol Sore Throat) 1 padmini MT Q4H PRN; Protocol PRN Reason: Sore Throat Benzonatate (Tessalon Perles) 100 mg PO TID [place] PRN Reason: Protocol Last Admin: 10/14/17 09:14 Dose: 100 mg Budesonide (Pulmicort Respules) 0.5 mg IH [id number] [place] PRN Reason: Protocol Last Admin: 10/14/17 07:14 Dose: 0.5 mg Cyanocobalamin (Vitamin B12 1000 Mcg Tab) 500 mcg PO DAILY [facility] PRN Reason: Protocol Last Admin: 10/14/17 09:14 Dose: 500 mcg Diltiazem HCl (Cardizem Cd) 300 mg PO DAILY [place] PRN Reason: Protocol Last Admin: 10/13/17 10:00 Dose: Not Given Diphenhydramine HCl (Benadryl) 25 mg PO HS PRN PRN Reason: Insomnia Last Admin: 10/12/17 21:31 Dose: 25 mg Docusate Sodium (Colace) 100 mg PO BID [place] Last Admin: 10/14/17 09:27 Dose: Not Given Furosemide (Lasix) 40 mg PO BID [place] PRN Reason: Protocol Last Admin: 10/13/17 17:13 Dose: Not Given Home Med (Home Med) 1 unit PO BID [place] PRN Reason: Protocol Last Admin: 10/13/17 17:13 Dose: 1 unit Insulin Human Regular (Humulin R Med) 0 units SC ACHS [place] PRN Reason: Protocol Last Admin: 10/14/17 08:30 Dose: Not Given Levalbuterol HCl (Xopenex) 0.63 mg IH Q2 PRN; Protocol PRN Reason: Shortness of Breath Last Admin: 10/08/17 16:26 Dose: 0.63 mg Levalbuterol HCl (Xopenex) 0.63 mg IH [id number] [place] PRN Reason: Protocol Last Admin: 10/14/17 07:14 Dose: 0.63 mg Metformin HCl (Glucophage) 500 mg PO BID [place] PRN Reason: Protocol Last Admin: 10/14/17 09:12 Dose: Not Given Ondansetron HCl (Zofran Inj) 4 mg IVP Q4H PRN PRN Reason: Nausea/Vomiting Last Admin: 10/11/17 17:53 Dose: 4 mg Pantoprazole Sodium (Protonix Inj) 40 mg IVP Q12 [place] Last Admin: 10/14/17 09:14 Dose: 40 mg Prednisone (Prednisone Tab) 20 mg PO DAILY [facility] Last Admin: 10/14/17 09:13 Dose: 20 mg Sitagliptin Phosphate (Januvia) 50 mg PO BID [place] PRN Reason: Protocol Last Admin: 10/14/17 09:13 Dose: Not Given Tramadol HCl (Ultram) 50 mg PO Q6H PRN; Protocol PRN Reason: Pain, moderate (4-7) Last Admin: 10/14/17 09:30 Dose: 50 mg - Labs Labs: 10/14/17 08:45 10/14/17 07:10 - Head Exam Head Exam: ATRAUMATIC, NORMAL INSPECTION, NORMOCEPHALIC - Eye Exam Eye Exam: EOMI, Normal appearance, PERRL Pupil Exam: NORMAL ACCOMODATION, PERRL. absent: Irregular, Unequal - ENT Exam ENT Exam: Mucous Membranes Moist, Normal Exam, Normal Oropharynx - Neck Exam Neck Exam: Normal Inspection. absent: Lymphadenopathy, Thyromegaly - Respiratory Exam Respiratory Exam: Clear to Ausculation Bilateral, NORMAL BREATHING PATTERN. absent: Chest Wall Tenderness, Prolonged Expiratory Phase, Respiratory Distress - Cardiovascular Exam Cardiovascular Exam: REGULAR RHYTHM, +S1, +S2 - GI/Abdominal Exam GI & Abdominal Exam: Soft, Normal Bowel Sounds. absent: Tenderness, Hyperactive Bowel Sounds - Extremities Exam Extremities Exam: absent: Joint Swelling, Pedal Edema - Back Exam Back Exam: NORMAL INSPECTION. absent: CVA tenderness (L), CVA tenderness (R), paraspinal tenderness Additional comments: back brace placed. - Neurological Exam Neurological Exam: Alert, Awake, Oriented x3 - Psychiatric Exam Psychiatric exam: Normal Affect, Normal Mood - Skin Skin Exam: Dry, Intact Assessment and Plan - Assessment and Plan (Free Text) Assessment: 72 year old male with a past medical history of COPD, CHF, hypertension, diabetes, blindness, GERD, CAD, left lung mass, psoriasis, and atrial fibrillation who presents for COPD exacerbation. Chest x-ray showed nondisplaced fracture of left 8-11 ribs. Rib support belt recommended to patient. Pt's prognosis remains poor at this time. Will taper steroids as per pulm. Pt will also have TCU evaluation. Patient overnight had a run of vtach 21 beats. Patient admitted to TCU. Patient found to be anemic and transfused 1 unit of PRBC's and GI was consulted. Plan: 1.COPD exacerbation -Continue Duonebs prn. -Continue Tapering Solumedrol per I.D. -Cefepime completed. - Blood cx negative = - O2 as needed -Continue incentive spirometry. -Pulmonology, Dr. Edmnod following -Palliative care consulted. Following. 2. Rib pain -Nondisplaced frx of left 8-11 ribs -Continue Support belt 3. new onset of Severe anemia -Patient Hgb was 6.3 today on morning labs. -Heparin Stopped. Type and Crossmatched. Transfused 1 Unit of PRBC. Obtained permission from NEERAJ Springer. -GI consulted. Will up with rec's. -Protonix changed to 40 Q12. -Racheal expected to come in today and discuss Hospice care with Katie Wolfe and Dr. Edmond. 4.h/o Atrial fibrillation - continue home meds 5. DM -Janumet started. -ISS -Accuchecks ACHS 6. Pulmonary hypertension -Continue home meds 7. h/o Diastolic CHF -continue with Lasix 8. Constipation -continue with home meds 9. PPX - Protonix - SCDs <Jamie Fairchild Yeimi - Last Filed: 10/14/17 17:00> Objective - Vital Signs/Intake and Output Vital Signs (last 24 hours): Temp Pulse Resp BP Pulse Ox 98.2 F 64 20 94/46 L 95 10/13/17 17:33 10/13/17 17:33 10/13/17 17:33 10/13/17 17:33 10/13/17 17:33 - Medications Medications: Current Medications Acetaminophen (Tylenol 325mg Tab) 650 mg PO Q6H PRN; Protocol PRN Reason: Pain, moderate (4-7) Last Admin: 10/14/17 04:58 Dose: 650 mg Benzocaine/Menthol (Cepacol Sore Throat) 1 padmini MT Q4H PRN; Protocol PRN Reason: Sore Throat Benzonatate (Tessalon Perles) 100 mg PO TID [place] PRN Reason: Protocol Last Admin: 10/14/17 16:27 Dose: Not Given Budesonide (Pulmicort Respules) 0.5 mg IH [id number] [place] PRN Reason: Protocol Last Admin: 10/14/17 07:14 Dose: 0.5 mg Cyanocobalamin (Vitamin B12 1000 Mcg Tab) 500 mcg PO DAILY [place] PRN Reason: Protocol Last Admin: 10/14/17 09:14 Dose: 500 mcg Diltiazem HCl (Cardizem Cd) 300 mg PO DAILY [place] PRN Reason: Protocol Last Admin: 10/13/17 10:00 Dose: Not Given Diphenhydramine HCl (Benadryl) 25 mg PO HS PRN PRN Reason: Insomnia Last Admin: 10/12/17 21:31 Dose: 25 mg Docusate Sodium (Colace) 100 mg PO BID [place] Last Admin: 10/14/17 09:27 Dose: Not Given Furosemide (Lasix) 40 mg PO BID [place] PRN Reason: Protocol Last Admin: 10/13/17 17:13 Dose: Not Given Home Med (Home Med) 1 unit PO BID [place] PRN Reason: Protocol Last Admin: 10/14/17 15:22 Dose: Not Given Insulin Human Regular (Humulin R Med) 0 units SC ACHS [place] PRN Reason: Protocol Last Admin: 10/14/17 14:09 Dose: Not Given Levalbuterol HCl (Xopenex) 0.63 mg IH Q2 PRN; Protocol PRN Reason: Shortness of Breath Last Admin: 10/08/17 16:26 Dose: 0.63 mg Levalbuterol HCl (Xopenex) 0.63 mg IH [id number] [place] PRN Reason: Protocol Last Admin: 10/14/17 13:18 Dose: Not Given Metformin HCl (Glucophage) 500 mg PO BID [place] PRN Reason: Protocol Last Admin: 10/14/17 09:12 Dose: Not Given Ondansetron HCl (Zofran Inj) 4 mg IVP Q4H PRN PRN Reason: Nausea/Vomiting Last Admin: 10/11/17 17:53 Dose: 4 mg Pantoprazole Sodium (Protonix Inj) 40 mg IVP Q12 [place] Last Admin: 10/14/17 09:14 Dose: 40 mg Prednisone (Prednisone Tab) 20 mg PO DAILY [facility] Last Admin: 10/14/17 09:13 Dose: 20 mg Sitagliptin Phosphate (Januvia) 50 mg PO BID [place] PRN Reason: Protocol Last Admin: 10/14/17 09:13 Dose: Not Given Tramadol HCl (Ultram) 50 mg PO Q6H PRN; Protocol PRN Reason: Pain, moderate (4-7) Last Admin: 10/14/17 09:30 Dose: 50 mg - Labs Labs: 10/14/17 08:45 10/14/17 07:10 Attending/Attestation - Attestation I have personally seen and examined this patient.: Yes I have fully participated in the care of the patient.: Yes I have reviewed all pertinent clinical information, including history, physical exam and plan: Yes Notes (Text): I have seen and examined patient with resident. This is a 71 year old male with past medical history of legal blindness, severe COPD (on 4L of O2 at home), pulmonary hypertension, obstructive sleep apnea, psoriasis, HTN, NIDDM and CAD ( s/p stents) and being legally blind who was brought by patients niece for COPD exacerbation and mechanical fall which resulted in multiple rib fractures on the left. He has been in TCU and has been feeling nauseous for the past few days. Today he had an acute drop in Hb. Black tarry stools were noted. Most likely this anemia is secondary to UGI bleed. Heparin SQ will be stopped. I had a detailed discussion with the patient and his neanastacio Racheal. Both decided against endocopy and are refusing further work up. We plan to give 2 units prbc. We had a meeting with SW and palliative care nurse. Pateint and his POA wants to make him hospice. All arrangements will be made. I have informed Dr Lilly as well. Continue xopenex, tapering dose of prednisone and cefepime for now. Patient has leukocytosis. He complains of rib pain. Continue cardizem, bosentan and lasix. Patient is DNI DNR. Long-term prognosis is poor. Continue Support belt, analgesics. Encourage him to use incentive spirometry. Patient reports that he still feels weak. Decision regarding hospice is still pending. Follow up with within 3-[address] Hale within 2-[address] Jamie Fairchild
[2017-10-14] MEDS: TRACLEER 125 MG PO SCH ×2 (15:22→18:09)
[2017-10-14 17:38] VITALS: BP 103/47; PULSE 59; TEMP 98.6
[2017-10-15] MEDS: Levalbuterol 0.63 MG/3 ML Inhal Soln UD IH PRN (00:15)
[2017-10-15 01:01] LABS: ARTERIAL BLOOD GAS HCO3 34.9 mmol/L (21-28); ARTERIAL BLOOD GAS PH 7.41 (7.35-7.45)
[2017-10-15] MEDS: Levalbuterol 0.63 MG/3 ML Inhal Soln UD IH SCH (01:30)
--- NOTE | 2017-10-15 01:50 | CP.PCM.PN ---
Subjective - Date & Time of Evaluation Date of Evaluation: 10/15/17 Time of Evaluation: 01:00 - Subjective Subjective: Paged by RN for patient's increase in respiratory effort. Patient seen and examined at bedside with attending physician. Patients history reviewed (COPD, legally blind, pulmonary HTN, diastolic CHF with preserved EF, DM, HTN, developmental delay, GERD, left lung mass, psoriasis). Patient was found to have an oxygen saturation of 82% on 2 L O2 NC. Patient was placed on a venti mask and oxygen saturation improved to 88%. On physically examination there was decreased breath sounds in the right lung field. No perioral cyanosis. No retractions. Vitals BP and HR are stable. ABG was order, reviewed, and appreciated pH 7.41, pO2 39, pCO2 55 H. CXR was ordered showing a new white out of the right lung field. Findings were discussed with the patient who emphatically asked us to contact his niece Racheal for final decision on whether to remain in the TCU for symptomatic relief vs being transferred to the emergency room for potentially more aggressive treatment. Racheal was contacted and was informed of findings. After an extensive conversation, Racheal requested that the patient be transferred to the ED for further management. Patient is being transferred to ED at this time. Objective - Vital Signs/Intake and Output Vital Signs (last 24 hours): Temp Pulse Resp BP Pulse Ox 98.6 F 59 L 20 103/47 L 95 10/14/17 17:38 10/14/17 17:38 10/14/17 17:38 10/14/17 17:38 10/14/17 17:38 - Medications Medications: Current Medications Acetaminophen (Tylenol 325mg Tab) 650 mg PO Q6H PRN; Protocol PRN Reason: Pain, moderate (4-7) Last Admin: 10/14/17 20:30 Dose: 650 mg Benzocaine/Menthol (Cepacol Sore Throat) 1 padmini MT Q4H PRN; Protocol PRN Reason: Sore Throat Benzonatate (Tessalon Perles) 100 mg PO TID SYDNEY PRN Reason: Protocol Last Admin: 10/14/17 18:09 Dose: 100 mg Budesonide (Pulmicort Respules) 0.5 mg IH [id number] SYDNEY PRN Reason: Protocol Last Admin: 10/14/17 20:40 Dose: 0.5 mg Cyanocobalamin (Vitamin B12 1000 Mcg Tab) 500 mcg PO DAILY SYDNEY PRN Reason: Protocol Last Admin: 10/14/17 09:14 Dose: 500 mcg Diltiazem HCl (Cardizem Cd) 300 mg PO DAILY SYDNEY PRN Reason: Protocol Last Admin: 10/13/17 10:00 Dose: Not Given Diphenhydramine HCl (Benadryl) 25 mg PO HS PRN PRN Reason: Insomnia Last Admin: 10/12/17 21:31 Dose: 25 mg Docusate Sodium (Colace) 100 mg PO BID [facility] Last Admin: 10/14/17 18:09 Dose: Not Given Furosemide (Lasix) 40 mg PO BID SYDNEY PRN Reason: Protocol Last Admin: 10/13/17 17:13 Dose: Not Given Home Med (Home Med) 1 unit PO BID SYDNEY PRN Reason: Protocol Last Admin: 10/14/17 18:09 Dose: Not Given Insulin Human Regular (Humulin R Med) 0 units SC ACHS SYDNEY PRN Reason: Protocol Last Admin: 10/14/17 22:34 Dose: Not Given Levalbuterol HCl (Xopenex) 0.63 mg IH Q2 PRN; Protocol PRN Reason: Shortness of Breath Last Admin: 10/15/17 00:15 Dose: 0.63 mg Levalbuterol HCl (Xopenex) 0.63 mg IH [id number] SYDNEY PRN Reason: Protocol Last Admin: 10/14/17 20:40 Dose: 0.63 mg Metformin HCl (Glucophage) 500 mg PO BID SYDNEY PRN Reason: Protocol Last Admin: 10/14/17 18:09 Dose: Not Given Ondansetron HCl (Zofran Inj) 4 mg IVP Q4H PRN PRN Reason: Nausea/Vomiting Last Admin: 10/11/17 17:53 Dose: 4 mg Pantoprazole Sodium (Protonix Inj) 40 mg IVP Q12 [facility] Last Admin: 10/14/17 21:35 Dose: 40 mg Prednisone (Prednisone Tab) 20 mg PO DAILY [facility] Last Admin: 10/14/17 09:13 Dose: 20 mg Sitagliptin Phosphate (Januvia) 50 mg PO BID SYDNEY PRN Reason: Protocol Last Admin: 10/14/17 18:09 Dose: Not Given Tramadol HCl (Ultram) 50 mg PO Q6H PRN; Protocol PRN Reason: Pain, moderate (4-7) Last Admin: 10/14/17 23:25 Dose: 50 mg - Labs Labs: 10/14/17 08:45 10/14/17 07:10
--- NOTE | 2017-10-15 08:03 | RAD ---
HISTORY: sob COMPARISON: 10/01/2017 FINDINGS: LUNGS: There is a dense alveolar infiltrate in the right lung consistent with pneumonia. PLEURA: No significant pleural effusion identified, no pneumothorax apparent. CARDIOVASCULAR: Normal. OSSEOUS STRUCTURES: No significant abnormalities. VISUALIZED UPPER ABDOMEN: Normal. OTHER FINDINGS: None. IMPRESSION: Extensive alveolar infiltrate in the right lung consistent with pneumonia.
== END 2017-10-15 02:11 | disposition short-term general hospital (02) | DRG 190 ==
LOC: TRCU 19:05
PROVIDERS: ADMIT Hospitalist; ATTEND Hospitalist
PROC: F07Z9FZ Gait Training/Functional Ambulation Treatment using Assistive, Adaptive, Supportive or Protective Equipment (ICD-10-PCS; principal; 2017-10-09)
PROC: F07Z8FZ Transfer Training Treatment using Assistive, Adaptive, Supportive or Protective Equipment (ICD-10-PCS; 2017-10-09)
PROC: F07L6ZZ Therapeutic Exercise Treatment of Musculoskeletal System - Lower Back / Lower Extremity (ICD-10-PCS; 2017-10-09)
PROC: F08Z1FZ Dressing Techniques Treatment using Assistive, Adaptive, Supportive or Protective Equipment (ICD-10-PCS; 2017-10-13)
DX: J44.1 Chronic obstructive pulmonary disease with (acute) exacerbation (principal); J18.9 Pneumonia, unspecified organism; I47.2 Ventricular tachycardia; I13.0 Hypertensive heart and chronic kidney disease with heart failure and stage 1 through stage 4 chronic kidney disease, or unspecified chronic kidney disease; I50.30 Unspecified diastolic (congestive) heart failure; J44.0 Chronic obstructive pulmonary disease with (acute) lower respiratory infection; I27.20 Pulmonary hypertension, unspecified; N18.9 Chronic kidney disease, unspecified; I48.91 Unspecified atrial fibrillation; E11.22 Type 2 diabetes mellitus with diabetic chronic kidney disease; D64.9 Anemia, unspecified; H54.8 Legal blindness, as defined in USA; Z66 Do not resuscitate; I25.10 Atherosclerotic heart disease of native coronary artery without angina pectoris; Z51.5 Encounter for palliative care; K59.00 Constipation, unspecified; R91.8 Other nonspecific abnormal finding of lung field; K21.9 Gastro-esophageal reflux disease without esophagitis; G47.33 Obstructive sleep apnea (adult) (pediatric); L40.9 Psoriasis, unspecified; I25.2 Old myocardial infarction; Z99.81 Dependence on supplemental oxygen; S22.42XD Multiple fractures of ribs, left side, subsequent encounter for fracture with routine healing; W19.XXXD Unspecified fall, subsequent encounter; Z95.5 Presence of coronary angioplasty implant and graft; Z79.4 Long term (current) use of insulin; Z87.891 Personal history of nicotine dependence

== ENCOUNTER 2017-10-15 01:46 | Observation (INO) | payer MEDICARE, OTHER ==
[2017-10-15 01:47] VITALS: BMI 25.0
[2017-10-15] MEDS ORDERED: Levalbuterol 0.63 MG/3 ML Inhal Soln UD IH PRN (02:39)
[2017-10-15] MEDS ORDERED: Benzocaine/Menthol (Cepacol) Lozenge MT PRN (02:39)
[2017-10-15 02:46] LABS: VENOUS BLOOD PH 7.34 (7.32-7.43)
[2017-10-15 02:54] LABS: ALKALINE PHOSPHATASE 102 U/L (38-126); ALT/SGPT 51 U/L (7-56); AST/SGOT 28 U/L (17-59); BILIRUBIN,TOTAL 0.6 mg/dL (0.2-1.3); BLOOD UREA NITROGEN 37 mg/dL (7-21); CALCIUM 9.2 mg/dL (8.4-10.5); CARBON DIOXIDE 36 mmol/L (21-33); CHLORIDE 96 mmol/L (98-107); GFR AFRICAN-AMERICAN > 60; GLUCOSE,RANDOM 133 mg/dL (70-110); POTASSIUM 3.6 mmol/L (3.6-5.0); SODIUM 137 mmol/L (132-148); TOTAL PROTEIN 5.8 g/dL (5.8-8.3)
[2017-10-15 02:58] LABS: TROPONIN I < 0.01 ng/mL
[2017-10-15 02:59] LABS: GRAN % 91.5 % (50.0-68.0); MEAN CELL VOLUME 88.6 fl (80.0-105.0); MEAN CORPUSCULAR HEMOGLOBIN 26.6 pg (25.0-35.0); MEAN PLATELET VOLUME 11.2 fl (7.0-11.0); PLATELET COUNT 285 10^3/uL (120.0-450.0)
[2017-10-15 03:00] LABS: BASO # 0.07 K/mm3 (0.0-2.0); BASO % 0.3 % (0.0-3.0); EOS # 0.1 (0.0-0.7); EOS % 0.2 % (1.5-5.0); GRAN # 24.39 (1.4-6.5); LYMPH # 1.1 (1.2-3.4); MONO # 1.1 (0.1-0.6)
[2017-10-15 03:02] LABS: WHITE BLOOD COUNT 26.7 10^3/ul (4.5-11.0)
[2017-10-15 03:05] VITALS: O2SAT 90
--- NOTE | 2017-10-15 03:13 | CP.PCM.HP ---
<Vihsal Jones - Last Filed: 10/15/17 02:44> History of Present Illness - History of Present Illness History of Present Illness: Subjective: Patient is a 72 yo male with PMH of COPD( on 4 Liters during the day and BIPAP at night), legally blind, pulmonary HTN, diastolic CHF with preserved EF, DM, HTN, developmental delay, GERD, left lung mass, psoriasis who was transferred from TCU earlier today for evaluation and treatment of SOB. In the TCU the patient was found to have an oxygen saturation of 82% on 2 L O2 NC. Patient was placed on a venti mask and oxygen saturation improved to 88%. Patient was also given 60mg IV solumedrol. There was no perioral cyanosis and no retractions. Vitals BP and HR were stable. ABG was order, reviewed, and appreciated pH 7.41, pO2 39, pCO2 55 H. CXR showed a new white out of the right lung field. Findings were discussed with the patient who emphatically asked us to contact his niece Racheal for final decision on whether to remain in the TCU for symptomatic relief vs being transferred to the emergency room for potentially more aggressive treatment. Racheal was contacted and was informed of findings. After an extensive conversation, Racheal requested that the patient be transferred to the ED for further management. Patient was transferred to ED and is being readmitted. Patient seen and reexamined. Patient states that his SOB has improved. Offers no new complaints at this time. Denies fever, chills, chest pain, abdominal pain, N/V, diarrhea, constipation, and urinary symptoms. PMH: COPD, legally blind, pulmonary HTN, diastolic CHF with preserved EF, DM, HTN, developmental delay, GERD, left lung mass, psoriasis Surg: Hernia Repair FHx: DM1 (sister) All: NKDA SH: Prior 3 ppd smoker, quit 25 yrs ago; Denied EtOH and illicit drug use Medications: please see MAR Physical Examination: - Head Exam Head Exam: ATRAUMATIC, NORMAL INSPECTION, NORMOCEPHALIC - Eye Exam Eye Exam: PERRL - ENT Exam ENT Exam: Mucous Membranes Moist - Neck Exam Neck Exam: JVD present - Respiratory Exam Respiratory Exam: absent breath sounds on the right lung field, basilar crackles - Cardiovascular Exam Cardiovascular Exam: REGULAR RHYTHM, +S1, +S2 - GI/Abdominal Exam GI & Abdominal Exam: Soft, Normal Bowel Sounds. absent: Tenderness, Hyperactive Bowel Sounds - Extremities Exam Extremities Exam: absent: Joint Swelling, Pedal Edema, thickening and degenerative changes noted on nails - Back Exam Back Exam: NORMAL INSPECTION. absent: CVA tenderness (L), CVA tenderness (R), paraspinal tenderness Additional comments: - Neurological Exam Neurological Exam: Alert, Awake, Oriented x3, responds to verbal stimuli, follows commands, and moves extremities spontaneously - Psychiatric Exam Psychiatric exam: Normal Affect, Normal Mood - Skin Skin Exam: Dry, Intact, discoloration in the lower extremities Assessment and Plan: Patient is a 72 yo male with PMH of COPD( on 4 Liters during the day and BIPAP at night), legally blind, pulmonary HTN, diastolic CHF with preserved EF, DM, HTN, developmental delay, GERD, left lung mass, psoriasis who was transferred from TCU earlier today for evaluation and treatment of SOB. CXR Abnormality - complete white out of right lung field - mucus plug vs malignant pleural effusion vs atelecatasis- possible bronch pending patient and family wishes - patient maintaining adequate oxygen saturation on venti mask @ 50% (patient's COPD history and CO2 retention was taken into consideration) COPD Exacerbation - abg reviewed from TCU, patient found to be hypoxic with CO2 retention which is reduced from baseline - Solumedrol 40mg IV BID - Continue pulmicort, tessalon perles, cepacol, tylenol prn, xopenex - Continue incentive spirometry - Pulm consulted- appreciate recommendations - ID consult for possible antibiotic management Rib pain - Improved - Continue Support belt Hx of Atrial fibrillation - Continue home meds: Diltiazem Hx of DM - hold diabetic meds at this time - ISS - Accuchecks ACHS Hx of Pulmonary hypertension - Continue bosentan Hx of Diastolic CHF - Continue with Lasix PPX - GI- famotidine - DVT- SCDs labs from ED pending- to be followed up - patient seen with, case reviewed with, and plan approved by attending physician. Present on Admission - Present on Admission Any Indicators Present on Admission: No Past Patient History - Infectious Disease Hx of Infectious Diseases: None - Tetanus Immunizations Tetanus Immunization: Up to Date - Past Social History Smoking Status: Former Smoker - CARDIAC Hx Cardiac Disorders: Yes (Afib, CAD, stents) Hx Congestive Heart Failure: Yes Hx Hypertension: Yes - PULMONARY Hx Chronic Obstructive Pulmonary Disease (COPD): Yes (end stage) - NEUROLOGICAL Hx Neurological Disorder: Yes (Blind since the age of 1.) - HEENT Hx Blind: Yes (since age 1) - RENAL Hx Renal Failure: Yes - ENDOCRINE/METABOLIC Hx Diabetes Mellitus Type 2: Yes - HEMATOLOGICAL/ONCOLOGICAL Hx Blood Disorders: Yes Hx Cancer: Yes (lung mass) - INTEGUMENTARY Hx Dermatological Problems: Yes (Reddened, flush skin, dry and taut. Thickened, whitish-yellowish skin patch) Hx Psoriasis: Yes Other/Comment: Generalized body surface area, including extremities and torso with reddened, flushed skin with dry, whitish-yellow, thick, scaly, flaky patches. - MUSCULOSKELETAL/RHEUMATOLOGICAL Hx Falls: Yes - GASTROINTESTINAL Hx Gastrointestinal Disorders: Yes (CONSTIPATION,HERNIORHAPPHY,GI BLEED,GERD, GASTRIC BYPASS,APPENDECTOMY) - GENITOURINARY/GYNECOLOGICAL Hx Genitourinary Disorders: Yes (UTI) Hx Reproductive Disorders: No - PSYCHIATRIC Hx Psychophysiologic Disorder: Yes Hx Substance Use: No (NONE NOTED) - SURGICAL HISTORY Hx Appendectomy: Yes - ANESTHESIA Hx Anesthesia Reactions: No Hx Malignant Hyperthermia: No Meds Allergies/Adverse Reactions: Allergies Allergy/AdvReac Type Severity Reaction Status Date / Time No Known Allergies Allergy Verified 10/15/17 01:53 Results - Vital Signs Recent Vital Signs: Last Vital Signs Temp 98.5 F 10/15/17 01:49 Pulse 97 H 10/15/17 01:49 Resp 24 10/15/17 01:49 BP 119/60 10/15/17 01:49 Pulse Ox 95 10/15/17 01:49 <Alia Kuhn - Last Filed: 10/15/17 03:22> Results - Vital Signs Recent Vital Signs: Last Vital Signs Temp 98.5 F 10/15/17 01:49 Pulse 97 H 10/15/17 01:49 Resp 22 10/15/17 02:00 BP 119/60 10/15/17 01:49 Pulse Ox 90 L 10/15/17 02:00 - Labs Result Diagrams: 10/15/17 02:30 10/15/17 02:30 Labs: Laboratory Results - last 24 hr 10/15/17 10/15/17 10/15/17 02:30 02:30 02:30 WBC 26.7 H* RBC 2.37 L Hgb 6.3 L* Hct 21.0 L MCV 88.6 MCH 26.6 MCHC 30.0 L RDW 18.0 H Plt Count 285 MPV 11.2 H Gran % 91.5 H Lymph % (Auto) 4.0 L Mineral % (Auto) 4.0 Eos % (Auto) 0.2 L Baso % (Auto) 0.3 Gran # 24.39 H Lymph # 1.1 L Mineral # 1.1 H Eos # 0.1 Baso # 0.07 pO2 112 H VBG pH 7.34 VBG pCO2 72.0 H* VBG HCO3 38.8 H VBG Total CO2 41.0 H VBG O2 Sat (Calc) 99.6 H VBG Base Excess 10.0 H VBG Potassium 3.6 Sodium 139.0 137 Chloride 102.0 96 L Glucose 137 H Lactate 0.8 FiO2 21.0 Potassium 3.6 Carbon Dioxide 36 H Anion Gap 9 L BUN 37 H Creatinine 0.8 Est GFR ( Amer) > 60 Est GFR (Non-Af Amer) > 60 Random Glucose 133 H Calcium 9.2 Total Bilirubin 0.6 AST 28 ALT 51 Alkaline Phosphatase 102 Lactate Dehydrogenase 465 Total Creatine Kinase 25 L Troponin I < 0.01 NT-Pro-B Natriuret Pep 1290 H Total Protein 5.8 Albumin 2.9 L Globulin 2.9 Albumin/Globulin Ratio 1.0 L Venous Blood Potassium 3.6 Attending/Attestation - Attestation I have personally seen and examined this patient.: Yes I have fully participated in the care of the patient.: Yes I have reviewed all pertinent clinical information: Yes Notes (Text): 10/15/17 03:21 Agree with documentation and orders placed.
--- NOTE | 2017-10-15 03:47 | ED PDOC ---
Arrival/HPI - General Historian: Patient - History of Present Illness Time/Duration: 1 hour Symptom Onset: Sudden Symptom Course: Improving Activities at Onset: Rest Context: Home - General Chief Complaint: Shortness Of Breath Time Seen by Provider: 10/15/17 02:06 - History of Present Illness Narrative History of Present Illness (Text): 10/15/17 03:07 Mr. Salgado is a 72 year old male with a past medical history significant for COPD (on 4 Liters during the day and BIPAP at night), legally blind, pulmonary HTN, diastolic CHF with preserved EF, DM, HTN, developmental delay, GERD, left lung mass, psoriasis who presents to [facility] from the [facility] after he was found to have a low oxygen saturation. Patient is accompanied by his niece in the ED. She reports that she and her uncle are scheduled to start hospice care tomorrow. Patient reports that his previous difficulty breathing has improved with oxygenation via venti mask in the ED. He endorses that he has chronic pain on his left side. He denies any fever, chills, headache, chest pain, abdominal pain, N/V/D/C, pain with urination, rash or any numbness/tingling/weakness of any extremity. (Leopoldo Mills) Past Medical History - Provider Review Nursing Documentation Reviewed: Yes - Travel History Have you recently traveled outside [place] w/in the past 3 mons?: No - Past History Past History: No Previous - Infectious Disease Hx of Infectious Diseases: None - Tetanus Immunization Tetanus Immunization: Up to Date - Reproductive Currently : No Currently Lactating: No - Cardiac Hx Cardiac Disorders: Yes (Afib, CAD, stents) Hx Congestive Heart Failure: Yes Hx Hypertension: Yes - Pulmonary Hx Chronic Obstructive Pulmonary Disease (COPD): Yes (end stage) - Neurological Hx Neurological Disorder: Yes (Blind since the age of 1.) - HEENT Hx Blind: Yes (since age 1) - Renal Hx Renal Failure: Yes - Endocrine/Metabolic Hx Diabetes Mellitus Type 2: Yes - Hematological/Oncological Hx Blood Disorders: Yes Hx Cancer: Yes (lung mass) - Integumentary Hx Dermatological Disorder: Yes (Reddened, flush skin, dry and taut. Thickened, whitish-yellowish skin patch) Hx Psoriasis: Yes Other/Comment: Generalized body surface area, including extremities and torso with reddened, flushed skin with dry, whitish-yellow, thick, scaly, flaky patches. - Musculoskeletal/Rheumatological Hx Falls: Yes - Gastrointestinal Hx Gastrointestinal Disorders: Yes (CONSTIPATION,HERNIORHAPPHY,GI BLEED,GERD, GASTRIC BYPASS,APPENDECTOMY) - Genitourinary/Gynecological Hx Genitourinary Disorders: Yes (UTI) Hx Reproductive Disorders: No - Psychiatric Hx Psychophysiologic Disorder: Yes Hx Substance Use: No (NONE NOTED) - Surgical History Hx Appendectomy: Yes - Anesthesia Hx Anesthesia Reactions: No Hx Malignant Hyperthermia: No - Suicidal Assessment Feels Threatened In Home Enviroment: No Family/Social History - Physician Review Nursing Documentation Reviewed: Yes Family/Social History: No Known Family HX Smoking Status: Former Smoker Hx Alcohol Use: No Hx Substance Use: No (NONE NOTED) Hx Substance Use Treatment: No Allergies/Home Meds Allergies/Adverse Reactions: Allergies No Known Allergies Allergy (Verified 10/15/17 01:53) Home Medications: Home Meds Medication Instructions Recorded Confirmed Bosentan [Tracleer] 125 mg PO BID 10/01/17 10/15/17 traMADol [Ultram] 50 mg PO Q8H PRN 10/01/17 10/15/17 Review of Systems - Physician Review All systems were reviewed & negative as marked: Yes - Review of Systems Constitutional: Normal. absent: Fevers, Night Sweats Eyes: Normal. absent: Vision Changes ENT: Normal Respiratory: SOB. absent: Normal, Cough Cardiovascular: Normal. absent: Chest Pain, Palpitations Gastrointestinal: Normal. absent: Abdominal Pain, Constipation, Diarrhea, Nausea, Vomiting Genitourinary Male: Normal. absent: Dysuria Musculoskeletal: Back Pain. absent: Normal Skin: Normal. absent: Rash Neurological: Normal. absent: Headache Endocrine: Normal Hemo/Lymphatic: Normal Psychiatric: Normal Physical Exam Vital Signs Reviewed: Yes Temperature: Afebrile Blood Pressure: Normal Pulse: Regular Respiratory Rate: Normal Appearance: Positive for: Well-Appearing, Non-Toxic, Comfortable Pain Distress: None Mental Status: Positive for: Alert and Oriented X 3 - Systems Exam Head: Present: Atraumatic, Normocephalic Pupils: Present: PERRL Extroacular Muscles: Present: EOMI Conjunctiva: Present: Normal Mouth: Present: Moist Mucous Membranes Neck: Present: Normal Range of Motion, Trachea Midline. No: Meningeal Signs, MIDLINE TENDERNESS, Paraspinal Tenderness, JVD, Lymphadenopathy Respiratory/Chest: Present: Decreased Breath Sounds (On R side ). No: Clear to Auscultation, Good Air Exchange, Respiratory Distress, Accessory Muscle Use, Wheezes, Rales, Retracting, Rhonchi, Tachypneic, Tender to Palpation Cardiovascular: Present: Regular Rate and Rhythm, Normal S1, S2. No: Murmurs, Tachycardic, Bradycardic Abdomen: Present: Normal Bowel Sounds. No: Tenderness, Distention, Peritoneal Signs Back: Present: Normal Inspection Upper Extremity: Present: Normal Inspection. No: Cyanosis, Edema Lower Extremity: Present: Normal Inspection. No: Edema Neurological: Present: GCS=15, CN II-XII Intact, Speech Normal Skin: Present: Warm, Dry, Normal Color. No: Rashes Psychiatric: Present: Alert, Oriented x 3, Normal Insight, Normal Concentration Vital Signs Temp Pulse Resp BP Pulse Ox 10/15/17 02:00 22 90 L 10/15/17 01:49 98.5 F 97 H 24 119/60 95 Medical Decision Making ED Course and Treatment: Patient Seen With Resident: In agreement with resident note which contains more details about the patient. Patient was seen and evaluated with resident. Came up with plan and treatment together. A 72 year old male with shortness of breath. Additional HPI as noted by resident. On physical exam, patient has decreased breath sounds on right side. Ordered EKG and labs. Will give patient O2 via venti-mask. (Nick Whatley) 10/15/17 03:49 Impression: 72 year old male with a past medical history significant for COPD ( on 4 Liters during the day and BIPAP at night), legally blind, pulmonary HTN, diastolic CHF with preserved EF, DM, HTN, developmental delay, GERD, left lung mass, psoriasis who presents to [facility] from the [facility] after he was found to have a low oxygen saturation Plan: -O2 via Venti-Mask -Plan to admit patient to med/surg so that hospice care can be initiated tomorrow Previous Visits: Patient seen and evaluated for SOB/lung cancer on multiple occasions (Leopoldo Mills) - Medication Orders Current Medication Orders: Acetaminophen (Tylenol 325mg Tab) 650 mg PO Q6H PRN PRN Reason: Pain, moderate (4-7) Benzocaine/Menthol (Cepacol Sore Throat) 1 padmini MT Q4H PRN PRN Reason: Sore Throat Benzonatate (Tessalon Perles) 100 mg PO TID SYDNEY Budesonide (Pulmicort Respules) 0.5 mg IH [id number] SYDNEY Diltiazem HCl (Cardizem Cd) 300 mg PO DAILY SYDNEY Furosemide (Lasix) 40 mg PO BID SYDNEY Levalbuterol HCl (Xopenex) 0.63 mg IH Q2 PRN PRN Reason: Shortness of Breath Levalbuterol HCl (Xopenex) 0.63 mg IH [id number] SYDNEY Methylprednisolone (Solu-Medrol) 40 mg IVP Q12 SYDNEY Non-Formulary Medication (Bosentan [Tracleer]) 125 mg PO BID SYDNEY Pantoprazole Sodium (Protonix Inj) 40 mg IVP Q12 SYDNEY Tramadol HCl (Ultram) 50 mg PO Q8H PRN PRN Reason: Pain, moderate (4-7) Disposition/Present on Arrival - Present on Arrival Any Indicators Present on Arrival: No History of DVT/PE: No History of Uncontrolled Diabetes: No Urinary Catheter: No History of Decub. Ulcer: No History Surgical Site Infection Following: None - Disposition Have Diagnosis and Disposition been Completed?: Yes Disposition Time: 03:51 Patient Plan: Admission - Disposition Diagnosis: Oxygen desaturation Disposition: HOSPITALIZED Patient Problems: Current Active Problems Problem Status Onset Oxygen desaturation Acute Condition: STABLE
[2017-10-15 05:44] LABS: ANISOCYTOSIS 1+; BAND 2 % (0-2); HYPOCHROMIA 3+; NEUTROPHIL 90 % (50.0-70.0); PLATELET ESTIMATE NORMAL (NORMAL)
[2017-10-15] MEDS: Levalbuterol 0.63 MG/3 ML Inhal Soln UD IH SCH ×2 (07:27→13:20)
--- NOTE | 2017-10-15 07:59 | PN ---
DATE: 10/15/2017 PULMONARY PROGRESS NOTE SUBJECTIVE: The patient appears labored this morning. He is mildly short of breath, but in no acute distress. He also appears mildly lethargic. PHYSICAL EXAMINATION: VITAL SIGNS: Temperature is 98.7, pulse is 89, respirations are 22, and blood pressure is 103/59. Oxygen saturation on face mask and nasal cannula is 90%. HEENT: Normocephalic and atraumatic. NECK: No JVD. CARDIOVASCULAR: Systolic ejection murmur at the lower left sternal border. No S3 gallop. LUNGS: Decreased breath sounds--right lower lobe, and left base. Slight increase in the bilateral rhonchi. No wheezing. EXTREMITIES: Mild edema. No cyanosis and no clubbing. Calves are nontender to palpation. GASTROINTESTINAL: Abdomen is soft, nontender and nondistended. Bowel sounds are positive. SKIN: No acute rash. NEUROLOGIC: Exam is limited at the present time. PERTINENT LABORATORY DATA: Chest x-ray was done early this morning and reviewed. It is a poor rotated portable film. However, it appears to show increasing opacification in the right lung. CBC: White count of 26.7, hemoglobin of 6.3, hematocrit of 21.0, and platelets of 285,000. IMPRESSION 1. Recurrent bronchitis. 2. Multiple left-sided rib fractures. Status post fall at home. 3. End-stage chronic obstructive pulmonary disease. 4. Left upper lobe lung mass. 5. Pulmonary hypertension. 6. Coronary artery disease. 7. Ventricular tachycardia. 8. Anemia. Gastrointestinal bleeding. 9. Increased opacification - right lung. PLAN: The patient appears more labored this morning. He is mildly short of breath, but in no acute distress. He is also mildly lethargic this morning. I did review the chest x-ray as above. The x-ray shows increased opacification in the right lung. These findings may be consistent with pneumonia, atelectasis, or both. I did discuss the case with Respiratory. They will suction the patient this morning. I did discuss the case with the niece, Racheal, at length in person this morning. Racheal want absolutely NO aggressive procedures done. She is now 100% committed to transitioning the patient (her uncle) to home hospice. I also discussed the plan with the medical billing representative at length this morning. I have also reviewed the note by Cydney Wolfe (palliative care). The patient remains very ill, with extremely poor outlook/prognosis. All are aware of his present condition. I will also discuss the above with the Sanitation Manager and Hospice representatives. Again, the patient should be transitioned to Home Hospice later this morning. All parties are in agreement. I will also discuss the above with Dr. Fairchild. Fabricio Edmond MD MTDD
[2017-10-15] MEDS ORDERED: Budesonide 0.5 mg/2 ml Inhal Susp UD IH SCH (08:00)
--- NOTE | 2017-10-15 09:51 | CARD ---
APPROVED REPORT EKG Measurement Heart [id number] <Conclusion> Sinus rhythm with premature atrial complexes and premature ventricular complexes or fusion complexes Nonspecific ST and T wave abnormality Abnormal ECG
[2017-10-15] MEDS ORDERED: diltiaZEM 300 mg/24 Hours CD Cap PO SCH (10:00)
[2017-10-15] MEDS ORDERED: BOSENTAN 125 MG PO SCH (10:00)
[2017-10-15] MEDS ORDERED: MethylPREDNISolone 40 mg Vial IVP SCH (10:00)
--- NOTE | 2017-10-15 10:16 | CP.PCM.CON ---
History of Present Illness - History of Present Illness History of Present Illness: 72 year old male with history of end stage COPD, CHF, PVD who is admitted with severe anemia. He is weak, lethargic, short of breath. He has LL rib cage pain secondary to previous fall resulting in rib fractures He denies nausea, vomiting , chills ,fever or headache. PMHx:COPD,CHF, HTN,DM, blind, PVD,CKD,anemia Social History: Former smoker no alcohol or drug use. Lives with niece/POA Racheal Vitale. Family History: Non contributory Advance Care Planning: DNR/DNI, Advance Directive Review of Systems: As per HPI, all other systems negative. Past Patient History - Infectious Disease Hx of Infectious Diseases: None - Tetanus Immunizations Tetanus Immunization: Up to Date - Past Social History Smoking Status: Former Smoker - CARDIAC Hx Cardiac Disorders: Yes Hx Congestive Heart Failure: Yes Hx Hypertension: Yes Other/Comment: Pulmonary HTN,ventrical tachycardia, CAD - PULMONARY Hx Respiratory Disorders: Yes Hx Bronchitis: Yes Hx Chronic Obstructive Pulmonary Disease (COPD): Yes - NEUROLOGICAL Hx Neurological Disorder: Yes Other/Comment: developmental delay - HEENT Hx HEENT Problems: No - RENAL Hx Renal Failure: Yes - ENDOCRINE/METABOLIC Hx Endocrine Disorders: Yes Hx Diabetes Mellitus Type 2: Yes - HEMATOLOGICAL/ONCOLOGICAL Hx Blood Disorders: Yes Hx Cancer: Yes Other/Comment: Left lung mass - INTEGUMENTARY Hx Dermatological Problems: Yes Hx Melanoma: Yes - MUSCULOSKELETAL/RHEUMATOLOGICAL Hx Musculoskeletal Disorders: No - GASTROINTESTINAL Hx Gastrointestinal Disorders: Yes Hx Gastroesophageal Reflux: Yes Other/Comment: gastritis, cecal polyps, hemmoroids, h.hernia - GENITOURINARY/GYNECOLOGICAL Hx Genitourinary Disorders: No - PSYCHIATRIC Hx Psychophysiologic Disorder: No - SURGICAL HISTORY Hx Surgeries: No - ANESTHESIA Hx Anesthesia Reactions: No Hx Malignant Hyperthermia: No Meds Allergies/Adverse Reactions: Allergies Allergy/AdvReac Type Severity Reaction Status Date / Time No Known Allergies Allergy Verified 10/15/17 01:53 - Medications Medications: Current Medications Acetaminophen (Tylenol 325mg Tab) 650 mg PO Q6H PRN PRN Reason: Pain, moderate (4-7) Benzocaine/Menthol (Cepacol Sore Throat) 1 padmini MT Q4H PRN PRN Reason: Sore Throat Benzonatate (Tessalon Perles) 100 mg PO TID SYDNEY Budesonide (Pulmicort Respules) 0.5 mg IH [id number] [place] Last Admin: 10/15/17 07:27 Dose: 0.5 mg Diltiazem HCl (Cardizem Cd) 300 mg PO DAILY SY[place] Furosemide (Lasix) 40 mg PO BID [place] Levalbuterol HCl (Xopenex) 0.63 mg IH Q2 PRN PRN Reason: Shortness of Breath Levalbuterol HCl (Xopenex) 0.63 mg IH [id number] [facility] Last Admin: 10/15/17 07:27 Dose: 0.63 mg Methylprednisolone (Solu-Medrol) 40 mg IVP Q12 [place] Non-Formulary Medication (Bosentan [Tracleer]) 125 mg PO BID SYDNEY Pantoprazole Sodium (Protonix Inj) 40 mg IVP Q12 [place] Tramadol HCl (Ultram) 50 mg PO Q8H PRN PRN Reason: Pain, moderate (4-7) Physical Exam - Constitutional Appears: Chronically Ill - Eye Exam Pupil Exam: NORMAL ACCOMODATION - ENT Exam ENT Exam: Mucous Membranes Moist - Respiratory Exam Respiratory Exam: Decreased Breath Sounds, Rhonchi, Wheezes - Cardiovascular Exam Cardiovascular Exam: Tachycardia, +S1, +S2 - GI/Abdominal Exam GI & Abdominal Exam: Normal Bowel Sounds, Soft - Extremities Exam Additional comments: 2+ bilateral pedal edema, PVD - Back Exam Back exam: NORMAL INSPECTION - Neurological Exam Neurological exam: Alert - Skin Skin Exam: Cyanosis, Dry - Additional Findings Additional findings: Palliative performance scale rating 30 Results - Vital Signs Recent Vital Signs: Last Vital Signs Temp 98.4 F 10/15/17 08:00 Pulse 89 10/15/17 08:00 Resp 20 10/15/17 08:00 BP 103/59 L 10/15/17 08:00 Pulse Ox 90 L 10/15/17 08:00 - Labs Result Diagrams: 10/15/17 02:30 10/15/17 02:30 Labs: Laboratory Results - last 24 hr 10/15/17 10/15/17 10/15/17 02:30 02:30 02:30 WBC 26.7 H* RBC 2.37 L Hgb 6.3 L* Hct 21.0 L MCV 88.6 MCH 26.6 MCHC 30.0 L RDW 18.0 H Plt Count 285 MPV 11.2 H Gran % 91.5 H Lymph % (Auto) 4.0 L Pratt % (Auto) 4.0 Eos % (Auto) 0.2 L Baso % (Auto) 0.3 Gran # 24.39 H Lymph # 1.1 L Pratt # 1.1 H Eos # 0.1 Baso # 0.07 Neutrophils % (Manual) 90 H Band Neutrophils % 2 Lymphocytes % (Manual) 4 L Monocytes % (Manual) 4 Platelet Evaluation Normal Hypochromasia 3+ Anisocytosis (manual) 1+ pO2 112 H VBG pH 7.34 VBG pCO2 72.0 H* VBG HCO3 38.8 H VBG Total CO2 41.0 H VBG O2 Sat (Calc) 99.6 H VBG Base Excess 10.0 H VBG Potassium 3.6 Sodium 139.0 137 Chloride 102.0 96 L Glucose 137 H Lactate 0.8 FiO2 21.0 Potassium 3.6 Carbon Dioxide 36 H Anion Gap 9 L BUN 37 H Creatinine 0.8 Est GFR ( Amer) > 60 Est GFR (Non-Af Amer) > 60 Random Glucose 133 H Calcium 9.2 Total Bilirubin 0.6 AST 28 ALT 51 Alkaline Phosphatase 102 Lactate Dehydrogenase 465 Total Creatine Kinase 25 L Troponin I < 0.01 NT-Pro-B Natriuret Pep 1290 H Total Protein 5.8 Albumin 2.9 L Globulin 2.9 Albumin/Globulin Ratio 1.0 L Venous Blood Potassium 3.6 Blood Type Antibody Screen Crossmatch BBK History Checked 10/15/17 05:47 WBC RBC Hgb Hct MCV MCH MCHC RDW Plt Count MPV Gran % Lymph % (Auto) Pratt % (Auto) Eos % (Auto) Baso % (Auto) Gran # Lymph # Pratt # Eos # Baso # Neutrophils % (Manual) Band Neutrophils % Lymphocytes % (Manual) Monocytes % (Manual) Platelet Evaluation Hypochromasia Anisocytosis (manual) pO2 VBG pH VBG pCO2 VBG HCO3 VBG Total CO2 VBG O2 Sat (Calc) VBG Base Excess VBG Potassium Sodium Chloride Glucose Lactate FiO2 Potassium Carbon Dioxide Anion Gap BUN Creatinine Est GFR ( Amer) Est GFR (Non-Af Amer) Random Glucose Calcium Total Bilirubin AST ALT Alkaline Phosphatase Lactate Dehydrogenase Total Creatine Kinase Troponin I NT-Pro-B Natriuret Pep Total Protein Albumin Globulin Albumin/Globulin Ratio Venous Blood Potassium Blood Type A POSITIVE Antibody Screen Negative Crossmatch See Detail BBK History Checked Patient has bt Assessment & Plan - Assessment and Plan (Free Text) Assessment: 82 year old with end stage COPD,CAD,DM,CKD,PVD who is admitted with severe anemia The patient is short of breath and weak. He is tachpneic and tachycardic. He has persistent intractable rib pain He is scheduled to receive transfusion today. His family wants no other medical intervention. After much discussion it was felt that patient would benefit from in patient hospice services for aggressive symptom relief Time spent in gaols of care and end of life counseling,30 minutes Plan: Hospice evaluation End of life counseling In patient hospice for pain and symptom magagement5
[2017-10-15 16:43] VITALS: PULSE 80; RESP 22; TEMP 98.6
[2017-10-15] MEDS ORDERED: Morphine 2 mg/ml ISec IVP STA (16:54)
[2017-10-15] MEDS ORDERED: Morphine PCA 1 mg/ml (25ml) 25 ML IV PRN (18:16)
[2017-10-15 19:08] VITALS: BP 100/50
[2017-10-15] MEDS ORDERED: Cefepime 1gm in NS 100ml 1 GM/100 ML BAG IVPB SCH (22:00)
--- NOTE | 2017-10-16 07:47 | CON ---
DATE: 10/15/2017 LOCATION: The patient is seen early this morning in room 577 . CHIEF COMPLAINT: Shortness of breath . HISTORY OF PRESENT ILLNESS: This is a 72-year-old male, known to me from previous admissions with multiple inpatient end-stage chronic obstructive lung disease and left upper lobe mass, patient with pulmonary hypertension, coronary artery disease, and ventricular tachycardia, atrial fibrillation, hyperlipidemia, diabetes mellitus. He is blind and deafness, with renal disease, anxiety, depression and admitted to the emergency room, seen by Dr. Nick Whatley. The patient also had diastolic congestive heart failure with preserved ejection fraction and pain with sudden onset of shortness of breath. REVIEW OF SYSTEMS: Reveals no fevers, no chills, no nausea or vomiting. He denies any abdominal pain, no diarrhea, no headaches or blurred vision with history of frequency. PAST MEDICAL HISTORY: Significant for end-stage chronic kidney disease, coronary artery disease, hypertension, left upper lobe lung mass, anxiety, depression, diastolic congestive heart failure, diabetes mellitus, blindness, atrial fibrillation, deafness, renal disease, V-tach. PAST SURGICAL HISTORY: Significant for coronary cardiac stents and cardiac cath. ALLERGIES: THE PATIENT HAS NO KNOWN ALLERGIES. MEDICATIONS: At home include the patient to be on tramadol, prednisone at 30 mg, Cardizem, Xopenex, insulin, Lasix. PHYSICAL EXAMINATION: VITAL SIGNS: The patient's temperature is 98, blood pressure is 103/60, respiratory rate 22. The patient's heart rate was up to 97. HEENT: Unremarkable. NECK: Supple. LUNGS: Had decreased breath sounds. HEART: Normal S1, S2. ABDOMEN: Soft, nontender. No organomegaly, rebound, no guarding, no masses. LABORATORY DATA: Reveals a white count of 26,700, hemoglobin of 6, platelets of 285. The patient has 91% granulocytosis and blood gases are reviewed. Chemistry is reviewed. The patient has BUN of 37, creatinine of 0.8, a BMP is 1290 and progress note is reviewed. History and physical examination by Dr. Jones is reviewed and states that the patient is going home to possible hospice. Cydney Wolfe's note is reviewed and dialysis evaluation is being considered. ASSESSMENT AND PLAN: This is a 72-year-old male with multiple admissions, end-stage chronic obstructive pulmonary disease, left upper lobe lung mass, anxiety, depression, pulmonary hypertension, congestive heart failure which is diastolic, with preserved ejection fraction, hyperlipidemia, diabetes, blind, and deaf, with atrial fibrillation, V-tach, and renal disease and depression, now admitted with tachycardia, shortness of breath, leukocytosis, infiltrate, and with sepsis with a healthcare-associated pneumonia and being considered for hospice, awaiting for final hospice physician and use Maxipime and doxycycline. We will also check on a procalcitonin, and we will make further recommendations based on culture results and if the patient is considered for a hospice situation as per hospice recommendation. Jurgen Carreon MD cc:
== END 2017-10-15 19:13 | disposition hospice, inpatient (51) ==
LOC: ED 01:46 → ERH 02:19 → 5RSO 04:09
PROVIDERS: ADMIT Hospitalist; ATTEND Hospitalist
DX: J44.1 Chronic obstructive pulmonary disease with (acute) exacerbation (principal); I13.0 Hypertensive heart and chronic kidney disease with heart failure and stage 1 through stage 4 chronic kidney disease, or unspecified chronic kidney disease; I50.32 Chronic diastolic (congestive) heart failure; I27.20 Pulmonary hypertension, unspecified; H54.8 Legal blindness, as defined in USA; E11.22 Type 2 diabetes mellitus with diabetic chronic kidney disease; N18.9 Chronic kidney disease, unspecified; K92.2 Gastrointestinal hemorrhage, unspecified; D50.0 Iron deficiency anemia secondary to blood loss (chronic); K21.9 Gastro-esophageal reflux disease without esophagitis; L40.9 Psoriasis, unspecified; I48.91 Unspecified atrial fibrillation; E11.51 Type 2 diabetes mellitus with diabetic peripheral angiopathy without gangrene; I25.10 Atherosclerotic heart disease of native coronary artery without angina pectoris; I47.2 Ventricular tachycardia; E78.5 Hyperlipidemia, unspecified; H91.90 Unspecified hearing loss, unspecified ear; F41.9 Anxiety disorder, unspecified; F32.9 Major depressive disorder, single episode, unspecified; R91.8 Other nonspecific abnormal finding of lung field; Z66 Do not resuscitate; Z79.4 Long term (current) use of insulin; Z95.5 Presence of coronary angioplasty implant and graft; Z87.891 Personal history of nicotine dependence
CPT/HCPCS: 31720; 36430; 80053; 82550; 82803; 83615; 83880; 84145; 84484; 85025; 86850; 86900; 86920; 86921; 86922; 87040; 93005; 94640; 99285; C9113; G0378; J2270; J2274; J2920; P9040

== ENCOUNTER 2017-10-15 19:20 | Inpatient (IN) | payer OTHER ==
[2017-10-15 21:33] VITALS: BP 94/47; PULSE 80; RESP 30; TEMP 98.2; BMI 24.0
[2017-10-16] MEDS ORDERED: Morphine PCA 1 mg/ml (25ml) 25 ML IV PRN (01:01)
--- NOTE | 2017-10-16 06:50 | CP.PCM.PRO ---
Pronouncement of Note - Pronouncement Time Time of Pronouncement of : 06:35 - Notifications Pronouncement Notifications: Family Notified (Spoke to family member present.), Atending Notified (Nurse will.) Head Mechanic Notified: No - Autopsy Autopsy Requested: No - [place] [id number]
== END 2017-10-16 06:35 | DRG 951 ==
LOC: 5RSO 19:20
PROVIDERS: ADMIT Hospitalist; ATTEND Hospitalist
DX: Z51.5 Encounter for palliative care (principal); J44.1 Chronic obstructive pulmonary disease with (acute) exacerbation; E11.22 Type 2 diabetes mellitus with diabetic chronic kidney disease; I27.20 Pulmonary hypertension, unspecified; I13.0 Hypertensive heart and chronic kidney disease with heart failure and stage 1 through stage 4 chronic kidney disease, or unspecified chronic kidney disease; I50.32 Chronic diastolic (congestive) heart failure; Z66 Do not resuscitate; N18.9 Chronic kidney disease, unspecified; L40.9 Psoriasis, unspecified; K21.9 Gastro-esophageal reflux disease without esophagitis; H54.8 Legal blindness, as defined in USA